=== PATIENT | female | born 1960 | race Caucasian/White ===

== ENCOUNTER 2022-11-28 09:43 | Outpatient (REF) | payer OTHER, SELFPAY ==
[2022-12-01 19:11] LABS: Age Gdln ACOG Testing Note (.); HPV Aptima Negative (Negative); IGP, Aptima HPV, rfx 16/18,45 Note (.)
== END 2022-11-28 09:44 | disposition home or self-care (01) ==
LOC: LAB 09:43
PROVIDERS: PCP Internal Medicine; Visit Provider Obstetrics & Gynecology
DX: Z01.419 Encounter for gynecological examination (general) (routine) without abnormal findings (principal)
CPT/HCPCS: 87624; G0145

== ENCOUNTER 2023-01-25 07:35 | Outpatient (OUT) | payer OTHER, SELFPAY ==
--- NOTE | 2023-01-25 07:39 | CT_ITS ---
[address] [address] Patient Name: CRISTOFER HEATH MRN: [id number] date: 1960 Sex: F Assigned Patient Location: CT Current Patient Location: [facility] Accession/Order Number: [id number] Exam Date: 01/25/2023 07:55 Report Date: 01/25/2023 08:59 At the request of: SHAIKH STORMY Procedure: CT lung screening low-dose EXAMINATION: CT lung screening low-dose HISTORY: Screening For Lung Cancer Z12.2 COMPARISON: No relevant comparison available. TECHNIQUE: Axial, Coronal, and Sagittal images were created without the administration of IV contrast material. Dose reduction techniques were achieved by using automated exposure control and/or adjustment of mA and/or kV according to patient size and/or use of iterative reconstruction technique. FINDINGS: LUNGS: Mild emphysematous changes. No acute infiltrates or suspicious nodules. PLEURA: No mass, effusion, or pneumothorax. VASCULATURE: No abnormality. MEGGAN: No mass or pathologic adenopathy. MEDIASTINUM: No mass or pathologic adenopathy. CARDIAC: No enlargement, pericardial thickening, or significant calcification. AORTA: No aneurysm or dissection. CHEST WALL: No mass or axillary adenopathy BONES: No bone lesion or fracture. LIMITED ABDOMEN: No suspicious findings. Limited images of the upper abdomen. OTHER: Negative. CT/CT lung screening low-dose IMPRESSION: 1. Lung-RADS Category 1 Negative. No nodules and definitely benign nodules. Continue annual screening with LDCT in 12 months. Electronically authenticated by: CHETNA VIRK Date: 01/25/2023 08:59
== END 2023-01-25 07:36 | disposition home or self-care (01) ==
LOC: CT 07:35
PROVIDERS: PCP Internal Medicine; Visit Provider Internal Medicine
DX: Z12.2 Encounter for screening for malignant neoplasm of respiratory organs (principal); Z12.31 Encounter for screening mammogram for malignant neoplasm of breast; Z13.820 Encounter for screening for osteoporosis; M81.0 Age-related osteoporosis without current pathological fracture; Z80.8 Family history of malignant neoplasm of other organs or systems; Z80.52 Family history of malignant neoplasm of bladder; R92.0 Mammographic microcalcification found on diagnostic imaging of breast; R92.1 Mammographic calcification found on diagnostic imaging of breast
CPT/HCPCS: 71271; 77063; 77067; 77080

== ENCOUNTER 2023-01-25 07:36 | Outpatient (OUT) | payer OTHER, SELFPAY ==
--- NOTE | 2023-01-25 07:42 | MM_ITS ---
Patient: CRISTOFER HEATH Exam Date: 01/25/2023 : 1960 Gender:F Ordering : DR LUIS MUNSON . Admission #: [id number] Family : Shaikh Glen Hahn . Order #: [id number] CLICK HERE TO VIEW EXAM RADIOLOGY REPORT PROCEDURE: MM TOMOSYNTHESIS SCREENING BI COMPARISON: MG MAMM SCREEN PURVI W CAD, 08/07/2018. MG MAMM SCREEN PURVI W CAD, 08/12/2019. INDICATIONS: Screening Calculator Name NCI Breast Cancer Risk Assessment Tool 5 Year Breast Cancer Risk 1.50% Lifetime Breast Cancer Risk 7.20% Personal Breast Cancer No Personal Ovarian Cancer No Treatments None Family Cancers Mother with bladder cancer at age 72. LOCATION: [facility] BREAST COMPOSITION: Scattered areas fibroglandular density. FINDINGS: DIAGNOSTIC CATEGORY 0--INCOMPLETE: NEED ADDITIONAL IMAGING EVALUATION. Scattered benign-appearing calcifications are present. Scattered benign-appearing lymph nodes are present. Microcalcifications identified in both axillary tails, I favor artifact from deodorant. Spot magnification views without deodorant is recommended for further evaluation RECOMMENDATIONS: ADDITIONAL MAMMOGRAPHIC VIEWS REQUIRED: BILATERAL BREASTS - spot magnification PLEASE NOTE: A NORMAL MAMMOGRAM DOES NOT EXCLUDE THE POSSIBILITY OF BREAST CANCER. A CLINICALLY SUSPICIOUS PALPABLE LUMP SHOULD BE BIOPSIED. Dictated by: Mohsen Stevens MD on 01/25/2023 at 12:08 Approved by: Mohsen Stevens MD on 01/25/2023 at 12:13
--- NOTE | 2023-01-25 07:42 | XR_ITS ---
[address] [address] Patient Name: CRISTOFER HEATH MRN: [id number]:[id number] date: 1960 Sex: F Assigned Patient Location: [facility] Current Patient Location: [facility] Accession/Order Number: [id number] Exam Date: 01/25/2023 08:00 Report Date: 01/25/2023 08:51 At the request of: LUIS MUNSON Procedure: XR DEXA axial skeleton EXAMINATION: XR DEXA axial skeleton HISTORY: Screening For Osteoporosis Z13.820 COMPARISON: DEXA bone densitometry 08/12/2019 TECHNIQUE: Dual-energy X-ray absorptiometry (DXA) was performed. FINDINGS: SPINE ANALYSIS: Average bone mineral density is 1.340 g/cm2. T-score (standard deviation relative to young adult mean): 1.3 . +7.3% change since prior study. HIP ANALYSIS: Lowest bone mineral density is within the right femoral trochanter, 0.595 g/cm2. T-score (standard deviation relative to young adult mean): -2.2 . -10.0% change since prior study. XR/XR DEXA axial skeleton IMPRESSION: World [employer] Classification: Osteopenia - Moderate Fracture Risk Electronically authenticated by: CHETNA VIRK Date: 01/25/2023 08:51
== END 2023-01-25 07:37 | disposition home or self-care (01) ==
LOC: MAMMO 07:36
PROVIDERS: PCP Internal Medicine; Visit Provider Obstetrics & Gynecology
DX: Z12.31 Encounter for screening mammogram for malignant neoplasm of breast (principal); Z13.820 Encounter for screening for osteoporosis; M81.0 Age-related osteoporosis without current pathological fracture; Z80.8 Family history of malignant neoplasm of other organs or systems; Z80.52 Family history of malignant neoplasm of bladder; R92.0 Mammographic microcalcification found on diagnostic imaging of breast; R92.1 Mammographic calcification found on diagnostic imaging of breast
CPT/HCPCS: 77063; 77067; 77080

== ENCOUNTER 2023-02-15 09:40 | Outpatient (OUT) | payer OTHER, SELFPAY ==
--- NOTE | 2023-02-15 09:44 | MM_ITS ---
Patient: CRISTOFER HEATH Exam Date: 02/15/2023 : 1960 Gender:F Ordering : Shaikh Glen Hahn . Admission #: [id number] Family : Order #: [id number] CLICK HERE TO VIEW EXAM RADIOLOGY REPORT PROCEDURE: MM DIAGNOSTIC MAMMO BI COMPARISON: MM TOMOSYNTHESIS SCREENING BI, 01/25/2023. INDICATIONS: Abnormal mammogram with microcalcification R92.0 Calculator Name NCI Breast Cancer Risk Assessment Tool 5 Year Breast Cancer Risk 1.50% Lifetime Breast Cancer Risk 7.20% Personal Breast Cancer No Personal Ovarian Cancer No Treatments None Family Cancers Mother with bladder cancer at age 72. LOCATION: [facility] BREAST COMPOSITION: Scattered areas fibroglandular density. FINDINGS: DIAGNOSTIC CATEGORY 2--BENIGN FINDING: Bilateral spot magnification views of axilla demonstrate the previously noted calcifications to no longer be present consistent with artifact from deodorant. No further evaluation is required RECOMMENDATIONS: ROUTINE MAMMOGRAM AND CLINICAL EVALUATION IN 12 MONTHS. PLEASE NOTE: A NORMAL MAMMOGRAM DOES NOT EXCLUDE THE POSSIBILITY OF BREAST CANCER. A CLINICALLY SUSPICIOUS PALPABLE LUMP SHOULD BE BIOPSIED. Dictated by: Mohsen Stevens MD on 02/15/2023 at 09:57 Approved by: Mohsen Stevens MD on 02/15/2023 at 09:58
== END 2023-02-15 09:41 | disposition home or self-care (01) ==
LOC: MAMMO 09:40
PROVIDERS: PCP Internal Medicine; Visit Provider Internal Medicine
DX: R92.0 Mammographic microcalcification found on diagnostic imaging of breast (principal)
CPT/HCPCS: 77066

== ENCOUNTER 2023-11-30 19:34 | Outpatient (REF) | payer OTHER, SELFPAY ==
[2023-12-05 08:12] LABS: Age Gdln ACOG Testing Note (.); HPV Aptima Negative (Negative); IGP, Aptima HPV, rfx 16/18,45 Note (.)
== END 2023-11-30 19:35 | disposition home or self-care (01) ==
LOC: LAB 19:34
PROVIDERS: PCP Internal Medicine; Visit Provider Obstetrics & Gynecology
DX: Z01.419 Encounter for gynecological examination (general) (routine) without abnormal findings (principal)
CPT/HCPCS: 87624; 88175

== ENCOUNTER 2024-01-29 09:30 | Outpatient (OUT) | payer OTHER, SELFPAY ==
--- NOTE | 2024-01-29 09:32 | MM_ITS ---
Patient Name: CRISTOFER HEATH MR#: [id number] : 1960 Exam Date: 01/29/2024 Ordering Doctor: DR LUIS MUNSON . RADIOLOGY REPORT PROCEDURE: MM TOMOSYNTHESIS SCREENING BI COMPARISON: MM TOMOSYNTHESIS SCREENING BI, 01/25/2023. MM DIAGNOSTIC MAMMO BI, 02/15/2023. INDICATIONS: Screening Calculator Name NCI Breast Cancer Risk Assessment Tool 5 Year Breast Cancer Risk 1.50% Lifetime Breast Cancer Risk 7.00% Personal Breast Cancer No Personal Ovarian Cancer No Treatments None Family Cancers Mother with bladder cancer at age 72. LOCATION: [facility] BREAST COMPOSITION: There are scattered areas of fibroglandular density. FINDINGS: DIAGNOSTIC CATEGORY 2--BENIGN FINDING. NO CHANGE FROM COMPARISON. Scattered benign-appearing calcifications are present. Scattered benign-appearing lymph nodes are present. RIGHT BREAST: No significant suspicious finding. LEFT BREAST: No significant suspicious finding. RECOMMENDATIONS: ROUTINE MAMMOGRAM AND CLINICAL EVALUATION IN 12 MONTHS. Active recommendations from prior exams: ROUTINE MAMMOGRAM AND CLINICAL EVALUATION IN [#MONTHS] MONTHS. Due on 02/16/2024. PLEASE NOTE: A NORMAL MAMMOGRAM DOES NOT EXCLUDE THE POSSIBILITY OF BREAST CANCER. A CLINICALLY SUSPICIOUS PALPABLE LUMP SHOULD BE BIOPSIED. Dictated by: Mohsen Stevens MD on 01/29/2024 at 11:10 Approved by: Mohsen Stevens MD on 01/29/2024 at 11:13
--- OUTSIDE RECORDS SUMMARY | 2024-01-29 09:52 | XMS_ITS | CCD ---
Author Organization [facility] Care Team Providers Care Senior Health Educator Name Role Phone FATIFFANY, JAMESON H Primary Care Unavailable DR Rene Byers Consulting Unavailable FAWWAD, JAMESON H Admitting Unavailable FAWWAD, JAMESON H Attending Unavailable FAWWAD, JAMESON H Consulting Unavailable FAWWAD, JAMESON H Primary Care Unavailable FAWWAD, JAMESON H Admitting Unavailable FAWWAD, JAMESON H Attending Unavailable FAWWAD, JAMESON H Consulting Unavailable JohnwShaikh franco MD Primary Care Provider Shaikh Hahn MD Primary Care Provider [phone] YADIEL SCOTT Attending Unavailable FAWWAD, JAMESON Referring Unavailable FAWWAD, JAMESON Primary Care Unavailable JOSHUA DICKENS Admitting Unavailable JOSHUA DICKENS Attending Unavailable JOHNWWAD, JAMESON Referring Unavailable FAWWAD, JAMESON Primary Care Unavailable JOSHUA DICKENS Attending Unavailable JOSHUA DICKENS Referring Unavailable FAWWAD, JAMESON Primary Care Unavailable MELLY RADER Attending Unavailable FAWWAD, JAMESON Primary Care Unavailable YADIEL SCOTT Attending Unavailable FAWWAD, JAMESON Referring Unavailable FAWWAD, JAMESON Primary Care Unavailable YADIEL SCOTT Attending Unavailable FAWWAD, JAMESON Referring Unavailable FAWWAD, JAMESON Primary Care Unavailable JOSHUA DICKENS Admitting Unavailable JOSHUA DICKENS Attending Unavailable FAWWAD, JAMESON Referring Unavailable FAWWAD, JAMESON Primary Care Unavailable FAWWAD, JAMESON Attending Unavailable FAWWAD, JAMESON Attending Unavailable ARPIT, LUIS Attending Unavailable SINDHU OLIVARES Attending Unavailabl e Allergies Allergy Classification Reported Allergen(s) Allergy Type Date of Onset Reaction(s) Facility (1 source) bee venom Drug allergy (disorder) [facility] (1 source) Cephalexin Drug Allergy [facility] (2 sources) Codeine; Translations: [CODEINE] Drug Allergy 05-18-20 16 [facility] (1 source) moxifloxacin Drug Allergy [facility] (1 source) Sulfamethoxazole / Trimethoprim Drug Allergy [facility] (1 source) traMADol Drug Allergy [facility] (2 sources) Cephalexin Drug Allergy 11-26-19 23 Hives [facility] (3 sources) Codeine Drug Allergy 05-18-20 16 GI intolerance, Nausea, Vomiting [facility] (2 sources) Mixed vespid venom Propensity to adverse reactions 11-26-19 23 GI intolerance [facility] (4 sources) moxifloxacin; Translations: [MOXIFLOXACIN] Drug Allergy 05-18-20 16 Hives, Nausea, Vomiting [facility] Work Phone: (2 sources) Nitrofurantoin Drug Allergy 11-26-19 23 Hives [facility] (4 sources) Sulfamethoxazole / Trimethoprim; Translations: [SULFAMETHOXAZOLE-T RIMETHOPRIM] Drug Allergy 05-18-20 16 Hives, Rash [facility] (4 sources) traMADol; Translations: [TRAMADOL] Drug Allergy 05-18-20 16 Hives, Nausea, Vomiting [facility] (2 sources) Cephalosporins (Antibiotic); Translations: [CEPHALOSPORINS] Drug Intolerance 04-19-20 12 Rash [facility] (1 source) Honey bee venom Allergy to substance 07-17-19 24 Anaphylaxis [facility] (1 source) Sulfamethoxazole Allergy to substance 02-11-20 Hives [facility] (1 source) Trimethoprim Drug Allergy 02-11-20 20 Hives [facility] (1 source) Moxifloxacin Hcl In Nacl Drug Intolerance 04-22-20 11 [facility] (1 source) Cephalosporins (Antibiotic) Propensity to adverse reactions to drug 05-18-20 16 Rash [facility] (2 sources) Bee Venom Protein (Honey Bee); Translations: [BEE VENOM PROTEIN (HONEY BEE)] Propensity to adverse reactions to drug 10-13-19 12 Anaphylaxis [facility] Medications Current Medications Medication Drug Class(es) Dates Sig (Normalized) Sig (Original) acetaminophen 500 mg oral tablet (1 source) take 2 tablets by mouth every six hours as needed for pain acetaminophen (TYLENOL) 500 mg tablet Take 2 tablets (1,000 mg total) by mouth every 6 (six) hours as needed for pain. 0 Active [id number] 200 actuat albuterol 0.09 mg/actuat metered dose inhaler (2 sources) beta2-Adrenergic Agonist Start: 04-13-2022 take 1 puff(s) by inhalation every four hours albuterol HFA 90 mcg/act inhaler Inhale 1 puff every 4 (four) hours if needed. 0 04/13/2022 Active alendronic acid 35 mg oral tablet (3 sources) Bisphosphonate Start: 06-13-2023 take 1 tablet by mouth every week alendronate (Fosamax) 35 MG tablet Indications: Osteopenia, unspecified location Take 1 tablet by mouth once a week 12 tablet 0 06/13/2023 Active Start: 03-26-2016 take 1 tablet by brian once daily alendronate (FOSAMAX) 10 mg tablet Take 1 tablet (10 mg total) by mouth nightly. 0 03/26/2016 Active aspirin 81 mg delayed release oral tablet (1 source) Platelet Aggregation Inhibitor, Nonsteroidal Anti-inflammatory Drug Start: 08-06-2021 aspirin 81 mg Indications: Primary osteoarthritis of right knee Take 1 tablet (81 mg total) by mouth 2 (two) times a day. To begin taking day one following your joint replacement 60 tablet 0 08/06/2021 Active atorvastatin 20 mg oral tablet (3 sources) HMG-CoA Reductase Inhibitor Start: 2016 take 1 tablet by mouth once daily atorvastatin (LIPITOR) 20 mg tablet Take 1 tablet (20 mg total) by mouth nightly. 0 2016 Active azithromycin 250 mg oral tablet (1 source) Macrolide Antimicrobial Start: 07-17-2023 End: 07-22-2023 azithromycin (Zithromax) 250 MG tablet Indications: URTI (acute upper respiratory infection) Take 1 tablet (250 mg) by mouth in the morning for 5 days. Take 2 pills on day 1, take 1 pill from day 2-5. 6 tablet 0 07/17/2023 07/22/2023 Active 24 hr buPROPion hydrochloride 150 mg extended release oral tablet (2 sources) Aminoketone Start: 07-17-2023 End: 07-16-2024 take 1 tablet by mouth every twenty-four hours in the morning buPROPion XL (WELLBUTRIN XL) 150 mg 24 hr tablet Take 1 tablet (150 mg total) by mouth in the morning. 0 07/17/2023 07/16/2024 Active calcium carbonate 1250 mg oral tablet (3 sources) take 2.5 tablets by mouth in the morning calcium carbonate (OS-JULIO CÉSAR) 500 mg elemental (1,250 mg) tablet Take 2.5 tablets (1,250 mg total) by mouth in the morning. 0 Active take 1 tablet by mouth in the mo rning calcium carbonate (Os-Julio César) 1250 (500 Ca) MG tablet Take 1,250 mg by mouth in the morning. 0 Active Cholecalciferol (5 sources) Vitamin D Start: 02-14-2023 End: 07-17-2023 take 1 tablet by mouth in the morning cholecalciferol (Vitamin D-3) 20 MCG (800 UNIT) tablet Indications: Osteopenia, unspecified location Take 1 tablet (20 mcg) by mouth in the morning. 30 tablet 02/14/2023 07/17/2023 Discontinued (Therapy completed) Start: 02-14-2023 End: 02-14-2024 take 1 tablet by mouth in the morning cholecalciferol (Vitamin D-3) 20 MCG (800 UNIT) tablet Indications: Osteopenia, unspecified location Take 1 tablet (20 mcg) by mouth in the morning. 30 tablet 11 02/14/2023 02/14/2024 Active Start: 01-28-2022 take 1 tablet by brian th twice daily at mealtime cholecalciferol (VITAMIN D3) 1,000 units tablet Indications: Vitamin D deficiency TAKE 1 TABLET BY MOUTH TWICE DAILY (MORNING AND EVENING) WITH MEALS 60 tablet 0 01/28/2022 Active Start: 01-28-2022 End: 07-17-2023 take 1 tablet by mouth in the morning cholecalciferol (Vitamin D-3) 25 MCG (1000 UT) tablet Take 25 mcg by mouth in the morning. 0 01/28/2022 07/17/2023 Discontinued (Therapy completed) [id number] 0.3 ml EPINEPHrine 1 mg/ml auto-injector (3 sources) alpha-Adrenergic Agonist, beta-Adrenergic Agonist, Catecholamine Start: 02-19-2016 EPIPEN 2-ELLIOT 0.3 mg/0.3 mL auto-injector EPINEPHrine (Epi Pen 2-Elliot) 0.3 MG/0.3ML injection syringe Inject as directed 1 (one) time. 0 Active ergocalciferol 1.25 mg oral capsule (1 source) Provitamin D2 Compound Start: 08-23-2021 take 1 capsule by mouth every week ergocalciferol (DRISDOL) 1,250 mcg (50,000 unit) capsule Indications: Vitamin D deficiency Take 1 capsule (50,000 Units total) by mouth once a week. For 6 weeks 6 capsule 0 08/23/2021 Active fexofenadine hydrochloride 180 mg oral tablet (3 sources) Histamine-1 Receptor Antagonist Start: 08-24-2022 End: 07-17-2023 take 1 tablet by mouth in the morning fexofenadine (BERNIE) 180 mg tablet Take 1 tablet (180 mg total) by mouth in the morning. 0 08/24/2022 Active FLUoxetine 20 mg oral capsule (4 sources) Serotonin Reuptake Inhibitor Start: 07-12-2021 End: 07-17-2023 take 1 capsule by mouth in the morning FLUoxetine (PROzac) 20 MG capsule Take 20 mg by mouth in the morning. 0 11/23/2022 07/17/2023 Discontinued (Dose adjustment) take 1 capsule by mouth in the m orning FLUoxetine (PROzac) 10 MG capsule Take 10 mg by mouth in the morning. 0 Active fluticasone propionate 0.05 mg/actuat metered dose nasal spray (2 sources) Corticosteroid Start: 02-22-2022 take 1 spray(s) nasal route in the morning fluticasone (Flonase) 50 MCG/ACT nasal spray Administer 1 spray into each nostril in the morning. 0 02/22/2022 Active melatonin 5 mg oral tablet (3 sources) take 2 tablets by mouth once daily melatonin (CIRCADIN) 5 mg tablet Take 2 tablets (10 mg total) by mouth nightly. 0 Active meloxicam 15 mg oral tablet (3 sources) Nonsteroidal Anti-inflammatory Drug Start: 08-25-2022 take 1 tablet by mouth in the morning meloxicam (MOBIC) 15 mg tablet Take 1 tablet (15 mg total) by mouth in the morning. 0 08/25/2022 Active 24 hr nicotine 0.875 mg/hr transdermal system (1 source) Cholinergic Nicotinic Agonist Start: 03-15-2023 apply 1 dose transdermal route every twenty-four hours nicotine (NICODERM CQ) 21 mg/24 hr APPLY 1 PATCH TOPICALLY EVERY 24 HOURS 0 03/15/2023 Active traZODone hydrochloride 50 mg oral tablet (4 sources) Serotonin Reuptake Inhibitor End: 07-17-2023 take 1 tablet by mouth once daily traZODone (DESYREL) 50 mg tablet Take 1 tablet (50 mg total) by mouth nightly. 0 Active Problems Active Problems Problem Classification Problem Date Documented Date Episodic/Chronic Disorders of lipid metabolism (7 sources) Hyperlipidemia, unspecified; Translations: [Hyperlipidemia] Onset: 03-19-2018 Chronic Essential hypertension (2 sources) Essential hypertension; Translations: [Essential (primary) hypertension] Onset: 07-17-2023 07-17-2023 Chronic Mood disorders (2 sources) Single episode of major depression in full remission; Translations: [Major depressive disorder, single episode, in full remission] Onset: 07-17-2023 07-17-2023 Chronic Osteoarthritis (3 sources) Osteoarthritis of left hip joint; Translations: [Unilateral primary osteoarthritis, left hip] Onset: 07-19-2021 07-17-2023 Chronic Osteoporosis (2 sources) Osteoporosis; Translations: [Age-related osteoporosis without current pathological fracture] Onset: 03-19-2018 07-17-2023 Chronic Other connective tissue disease (2 sources) History of total knee arthroplasty; Translations: [Presence of right artificial knee joint] Onset: 10-27-2021 07-17-2023 Chronic Other upper respiratory infections (2 sources) Acute upper respiratory infection; Translations: [Acute upper respiratory infection, unspecified] Onset: 07-17-2023 07-17-2023 Episodic Residual codes; unclassified (1 source) Obstructive sleep apnea syndrome; Translations: [Obstructive sleep apnea (adult) (pediatric)] 07-17-2023 Chronic Residual codes; unclassified (1 source) Hypersomnia with sleep apnea; Translations: [Hypersomnia, unspecified] Onset: 07-17-2023 07-17-2023 Chronic Residual codes; unclassified (2 sources) Sleep apnea; Translations: [Sleep apnea, unspecified] Onset: 03-19-2018 07-17-2023 Chronic Residual codes; unclassified (2 sources) Tobacco user; Translations: [Tobacco use] Onset: 07-17-2023 07-17-2023 Episodic Spondylosis; intervertebral disc disorders; other back problems (2 sources) Other intervertebral disc degeneration, lumbar region; Translations: [Spondylosis without myelopathy or radiculopathy, lumbosacral region] Onset: 05-29-2022 Chronic Spondylosis; intervertebral disc disorders; other back problems (7 sources) Spinal stenosis of lumbar region; Translations: [Spinal stenosis, lumbar region with neurogenic claudication] Onset: 09-08-2022 07-17-2023 Episodic Thyroid disorders (1 source) Congenital hypothyroidism with diffuse goiter; Translations: [CONGEN HYPOTHYROIDISM W/DIF GOITER] Onset: 11-18-2021 Chronic Unclassified (3 sources) LOW BACK PAIN, UNSPECIFIED; Translations: [LOW BACK PAIN, UNSPECIFIED] Onset: 05-29-2022 Past or Other Problems Problem Classification Problem Date Documented Da te Episodic/Chronic Abdominal pain (1 source) Right flank pain; Translations: [Unspecified abdominal pain] Onset: 03-19-2018 03-19-2018 Episodic Diabetes mellitus without complication (1 source) Other abnormal glucose; Translations: [OTHER ABNORMAL GLUCOSE] Onset: 11-18-2021 Episodic Genitourinary symptoms and ill-defined conditions (1 source) Blood in urine; Translations: [Hematuria, unspecified] Onset: 03-19-2018 03-19-2018 Episodic Unclassified (1 source) LOW BACK PAIN, UNSPECIFIED; Translations: [LOW BACK PAIN, UNSPECIFIED] Onset: 05-25-2022 Results Test Name Value Interpretation Reference Range Facility XR LSPINE MIN 4 VIEWSon 05-12 XR LSPINE MIN 4 VIEWS EXAMINATION: XR LSPINE MIN 4 VIEWS HISTORY: Low back pain for one month COMPARISON: No relevant comparison available. FINDINGS: BONES: Moderate right convex curvature lumbar spine. Mild grade 1 retrolisthesis of L2 on 3 and L4 on 5. Moderate degenerative facet arthropathy L3 through S1. No fracture. DISC SPACES: Marked narrowing L4-L5, L5-S1. Multilevel moderate narrowing. PARASPINOUS: Atherosclerotic disease of aorta without visible aneurysm. OTHER: Negative. IMPRESSION: 1. No appreciable acute abnormality. 2. Multilevel marked degenerative disc disease and facet arthropathy; not visibly changed. Electronically authenticated by: RENE BYERS Date: 2022-05-25 23:28 Normal [facility] CBC AUTO DIFFon 11-12-2021 BASO # 0.0 103/ul Normal 0.0-0.1 [facility] Comment on above: Performed By: #### C BC #### [facility] [address] [address] [address] Mary Solano Basophils/100 WBC (Bld) 0.6 % Normal 0.2-2.0 [facility] Comment on above: Performed By: #### C BC #### [facility] [address] [address] [address] Mary Solano EO # 0.1 103/ul Normal 0.0-0.7 [facility] Comment on above: Performed By: #### C BC #### [facility] [address] [address] [address] Mary Solano Eosinophils/100 WBC (Bld) 1.9 % Normal 0.9-7.0 [facility] Comment on above: Performed By: #### C BC #### [facility] [address] [address] [address] Mary Solano Erythrocyte distribution width (RBC) [Ratio] 14.0 % Normal 11.0-15.0 [facility] Comment on above: Performed By: #### C BC #### [facility] [address] [address] [address] Mary Solano Hematocrit (Bld) [Volume fraction] 44.4 % Normal 36.0-48.0 [facility] Comment on above: Performed By: #### C BC #### [facility] [address] [place] [address] Dr. Mary Solano Hemoglobin (Bld) [Mass/Vol] 14.3 g/dL Normal 12.0-16.0 [facility] Comment on above: Performed By: #### C BC #### [facility] [address] [place] [address] Dr. Mary Solano IG # 0.02 10e3/ul Normal 0.00-0.03 [facility] Comment on above: Performed By: #### C BC #### [facility] [address] [place] [address] Dr. Mary Solano IG % 0.3 % Normal 0.0-0.5 [facility] Comment on above: Performed By: #### C BC #### [facility] [address] [place] [address] Dr. Mary Solano LYMPH # 2.1 103/ul Normal 1.2-3.8 [facility] Comment on above: Performed By: #### C BC #### [facility] [address] [place] [address] Dr. Mary Solano Lymphocytes/100 WBC (Bld) 30.1 % Normal 20.5-60.0 [facility] Comment on above: Performed By: #### C BC #### [facility] [address] [place] [address] Dr. Mary Solano MANUAL DIFF REQ NO Normal [facility] Comment on above: Performed By: #### C BC #### [facility] [address] [place] [address] Dr. Mary Solano MCH (RBC) [Entitic mass] 29.3 pg Normal 26.7-34.0 [facility] Comment on above: Performed By: #### C BC #### [facility] [address] [place] [address] Dr. Mary Solano MCHC (RBC) [Mass/Vol] 32.2 g/dL Normal 29.9-35.2 [facility] Comment on above: Performed By: #### C BC #### [facility] [address] [place] [address] Dr. Mary Solano MCV (RBC) [Entitic vol] 91.0 fL Normal 81.0-99.0 [facility] Comment on above: Performed By: #### C BC #### [facility] [address] [place] [address] Dr. Mary Solano MONO # 0.6 103/ul Normal 0.3-0.8 [facility] Comment on above: Performed By: #### C BC #### [facility] [address] [address] [address] Mary Solano Monocytes/100 WBC (Bld) 8.9 % Normal 1.7-12.0 [facility] Comment on above: Performed By: #### C BC #### [facility] [address] [address] [address] Mary Solano NEUT # 4.0 103/ul Normal 1.4-6.5 [facility] Comment on above: Performed By: #### C BC #### [facility] [address] [place] [address] Dr. Mary Solano Neutrophils/100 WBC (Bld) 58.2 % Normal 43.0-75.0 [facility] Comment on above: Performed By: #### C BC #### [facility] [address] [place] [address] Dr. Mary Solano Platelet mean volume (Bld) [Entitic vol] 8.8 fL Critically low 9.5-13.5 [facility] Comment on above: Performed By: #### C BC #### [facility] [address] [place] [address] Dr. Mary Solano PLT 372 103/ul Normal 150-450 [facility] Comment on above: Performed By: #### C BC #### [facility] [address] [place] [address] Dr. Mary Solano RBC 4.88 106/ul Normal 4.20-5.40 [facility] Comment on above: Performed By: #### C BC #### [facility] [address] [place] [address] Dr. Mary Solano WBC 6.8 103/ul Normal 4.0-11.0 [facility] Comment on above: Performed By: #### C BC #### [facility] [address] [place] [address] Dr. Mary Solano GLYCOHEMOGLOBIN A1Con 2021 ADA RECOMMENDATION SEE BELOW Normal [facility] Comment on above: Result Comment: ADA RECOMMENDED LIMIT 4.0 - 6.0 ADA THERAPEUTIC TARGET < 7.0 ACTION SUGGESTED > 7.0 Performed By: #### A 1C #### [facility] [address] [place] [address] Dr. Mary Solano Glucose [Mass/Vol] 117 mg/dL Normal [facility] Comment on above: Performed By: #### A 1C #### [facility] [address] [address] [address] Mary Solano HbA1c (Bld) [Mass fraction] 5.7 % Normal 4.5-6.2 [facility] Comment on above: Performed By: #### A 1C #### [facility] [address] [place] [address] Dr. Mary Solano LIPID PROFILEon 11-12-2021 CHOL-HDL RATIO NORM SEE BELOW Normal [facility] Comment on above: Result Comment: 3.3 - 4.4 LOW RISK 4.4 - 7.1 AVERAGE RISK 7.1 - 11.0 MODERATE RISK >11.0 HIGH RISK Performed By: #### C MP, LIPID #### [facility] [address] [place] [address] Dr. Mary Solano Cholesterol [Mass/Vol] 197 mg/dL Normal <=200 [facility] Comment on above: Performed By: #### C MP, LIPID #### [facility] [address] [place] [address] Dr. Mary Solano Cholesterol in HDL [Mass/Vol] 49 mg/dL Normal 40-60 [facility] Comment on above: Performed By: #### C MP, LIPID #### [facility] [address] [address] [address] Mary Solano Cholesterol in LDL [Mass/Vol] 124.4 mg/dL Normal [facility] Comment on above: Performed By: #### C MP, LIPID #### [facility] [address] [place] [address] Dr. Mary Solano Cholesterol.total/Cho lesterol in HDL [Mass ratio] 4.0 {ratio} Normal [facility] Comment on above: Performed By: #### C MP, LIPID #### [facility] [address] [address] [address] Mary Solano HDL NORMAL > or = 60 mg/dl - LO W CARDIOVASCULAR RISK <40 mg/dl - HIGH CARDIOVASCULAR RISK Normal [facility] Comment on above: Performed By: #### C MP, LIPID #### [facility] [address] [address] [address] Mary Solano LDL CALC NORMAL SEE BELOW Normal [facility] Comment on above: Result Comment: <100 mg/dl OPTIMAL 100 - 129 mg/dl NEAR OR ABOVE OPTIMAL 130 - 159 mg/dl BORDERLINE HIGH 160 - 189 mg/dl HIGH >190 mg/dl VERY HIGH Performed By: #### C MP, LIPID #### [facility] [address] [place] [address] Dr. Mary Solano Triglyceride [Mass/Vol] 118 mg/dL Normal <=150 [facility] Comment on above: Performed By: #### C MP, LIPID #### [facility] [address] [place] [address] Dr. Mary Solano VLDL CALC 23.6 mg/dL Normal [facility] Comment on above: Performed By: #### C MP, LIPID #### [facility] [address] [place] [address] Dr. Mary Solano PROF 14(COMP METB)on 022 Albumin [Mass/Vol] 3.8 g/dL Normal 3.4-5.0 [facility] Comment on above: Performed By: #### C MP, LIPID #### [facility] [address] [place] [address] Dr. Mary Solano Albumin/Globulin [Mass ratio] 1.1 {ratio} Normal [facility] Comment on above: Performed By: #### C MP, LIPID #### [facility] [address] [place] [address] Dr. Mary Solano ALP [Catalytic activity/Vol] 136 U/L Critically high 46-116 [facility] Comment on above: Performed By: #### C MP, LIPID #### [facility] [address] [address] [address] Mary Solano ALT [Catalytic activity/Vol] 20 U/L Normal 14-59 [facility] Comment on above: Performed By: #### C MP, LIPID #### [facility] [address] [address] [address] Mary Solano Anion gap [Moles/Vol] 12.1 mmol/L Normal [facility] Comment on above: Performed By: #### C MP, LIPID #### [facility] [address] [address] [address] Mary Solano AST [Catalytic activity/Vol] 14 U/L Critically low 15-37 [facility] Comment on above: Performed By: #### C MP, LIPID #### [facility] [address] [place] [address] Dr. Mary Solano Bilirubin [Mass/Vol] 0.3 mg/dL Normal 0.2-1.0 [facility] Comment on above: Performed By: #### C MP, LIPID #### [facility] [address] [place] [address] Dr. Mary Solano Calcium [Mass/Vol] 9.3 mg/dL Normal 8.5-10.1 [facility] Comment on above: Performed By: #### C MP, LIPID #### [facility] [address] [place] [address] Dr. Mary Solano Chloride [Moles/Vol] 102 mmol/L Normal 98-107 [facility] Comment on above: Performed By: #### C MP, LIPID #### [facility] [address] [place] [address] Dr. Mary Solano CO2 [Moles/Vol] 29.0 mmol/L Normal 21.0-32.0 [facility] Comment on above: Performed By: #### C MP, LIPID #### [facility] [address] [place] [address] Dr. Mary Solano Creatinine [Mass/Vol] 0.64 mg/dL Normal 0.55-1.02 [facility] Comment on above: Performed By: #### C MP, LIPID #### [facility] [address] [place] [address] Dr. Mary Solano EGFR-AF MAURITIAN >60 Normal >=60 [facility] Comment on above: Performed By: #### C MP, LIPID #### [facility] [address] [place] [address] Dr. Mary Solano EGFR-NON AF MAURITIAN >60 Normal >=60 [facility] Comment on above: Performed By: #### C MP, LIPID #### [facility] [address] [address] [address] Mary Solano Globulin (S) [Mass/Vol] 3.4 g/dL Normal [facility] Comment on above: Performed By: #### C MP, LIPID #### [facility] [address] [place] [address] Dr. Mary Solano Glucose [Mass/Vol] 94 mg/dL Normal 74-106 [facility] Comment on above: Performed By: #### C MP, LIPID #### [facility] [address] [place] [address] Dr. Mary Solano Potassium [Moles/Vol] 4.1 mmol/L Normal 3.5-5.1 [facility] Comment on above: Performed By: #### C MP, LIPID #### [facility] [address] [place] [address] Dr. Mary Solano Protein [Mass/Vol] 7.2 g/dL Normal 6.4-8.2 [facility] Comment on above: Performed By: #### C MP, LIPID #### [facility] [address] [place] [address] Dr. Mary Solano Sodium [Moles/Vol] 139 mmol/L Normal 136-145 [facility] Comment on above: Performed By: #### C MP, LIPID #### [facility] [address] [place] [address] Dr. Mary Solano Urea nitrogen [Mass/Vol] 14.0 mg/dL Normal 7.0-18.0 [facility] Comment on above: Performed By: #### C MP, LIPID #### [facility] [address] [place] [address] Dr. Mary Solano Urea nitrogen/Creatinine [Mass ratio] 21.9 mg/mg Normal [facility] Comment on above: Performed By: #### C MP, LIPID #### [facility] [address] [address] [address] Mary Solano Reminderson 06-07-2019 Reminders - From: Harry JACKSON, Tati Mooney To: EU - Clinical; Sent: 05/22/2019 09:03:06 EST Show up: 06/03/2019 07:00:00 EST Subject: Ambulatory Reminder Due Date/Time: 06/05/2019 07:00:00 EST Reminder/Recall FISH/Cytology done 05/22/19 due to gross hematuria done, results negative, in patients chart [facility] Vital Signs Date Time Vital Sign Value Performing Clinician Facility 08-24-2023 09:25-0400 Body height 162.6 cm Yadiel MUNGUIA Work Phone: [facility] 08-24-2023 09:25-0400 Body mass index (BMI) [Ratio] 33.13 kg/m2 Yadiel MUNGUIA Work Phone: [facility] 08-24-2023 09:25-0400 Body weight 87.54 kg Yadiel MUNGUIA Work Phone: [facility] 08-24-2023 09:25-0400 Diastolic blood pressure 75 mm[Hg] Yadiel MUNGUIA Work Phone: [facility] 08-24-2023 09:25-0400 Heart rate 58 /min Yadiel [facility]GU[facility] 08-24-2023 09:25-0400 Respiratory rate 14 /min Yadiel MUNGUIA Work Phone: [facility] [employer] [facility] 08-24-2023 09:25-0400 SaO2% (BldA) [Mass fraction] 98 % Yadiel MUNGUIA Work Phone: [facility] 08-24-2023 09:25-0400 Systolic blood pressure 137 mm[Hg] Yadiel MUNGUIA Work Phone: [facility] 07-17-2023 09:00-0500 Body height 162.6 cm Shaikh Jovani ASKEW Work Phone: [facility] 07-17-2023 09:00-0500 Body mass index (BMI) [Ratio] 33.23 kg/m2 Shaikh Jovani ASKEW Work Phone: [facility] 07-17-2023 09:00-0500 Body temperature 98.1 [degF] Shaikh Jovani ASKEW Work Phone: [facility] 07-17-2023 09:00-0500 Body weight 87.82 kg Shaikh Jovani ASKEW Work Phone: [facility] 07-17-2023 09:00-0500 Diastolic blood pressure 78 mm[Hg] Shaikh Jovani ASKEW Work Phone: [facility] 07-17-2023 09:00-0500 Heart rate 66 /min Shaikh Jovani ASKEW Work Phone: [facility] 07-17-2023 09:00-0500 Respiratory rate 17 /min Shaikh Jovani ASKEW Work Phone: [facility] 07-17-2023 09:00-0500 SaO2% (BldA) [Mass fraction] 96 % Shaikh Jovani ASKEW Work Phone: [facility] 07-17-2023 09:00-0500 Systolic blood pressure 130 mm[Hg] Shaikh Jovani ASKEW Work Phone: [facility] Encounters Encounter Date Encounter Type Care Provider Facility Start: 01-24-2024 End: 01-24-2024 ambulatory SINDHU OLIVARES Not Available Start: 01-12-2024 End: 01-12-2024 ambulatory [facility] Start: 12-28-2023 End: 12-28-2023 ambulatory YADIEL SCOTT [facility] Start: 11-30-2023 End: 11-30-2023 ambulatory LUIS ARPIT Not Available Start: 10-04-2023 End: 10-04-2023 ambulatory SHAIKH JOVANI Not Available Start: 10-03-2023 End: 10-03-2023 ambulatory YADIEL S [facility] Start: 09-16-2023 End: 09-16-2023 ambulatory MELLY Gabriel SYDNEEKURT [facility] Start: 09-15-2023 End: 09-15-2023 ambulatory JOSHUA DICKENS [facility] Start: 08-24-2023 End: 08-24-2023 Office outpatient visit 15 minutes Yadiel S Nizak MUNGUIA Work Phone: [facility] Comment on above: Disorder of sacrum ( Primary Dx) Start: 08-24-2023 End: 08-24-2023 [facility] Start: 07-17-2023 Isaiah Hahn MD Work Phone: [facility] Start: 07-17-2023 Isaiah Hahn MD Work Phone: [facility] Start: 07-17-2023 End: 07-17-2023 Office outpatient visit 25 minutes Shaikh Jovani ASKEW Work Phone: [facility] Comment on above: Obstructive sleep ap emily syndrome (Primary Dx); Hyperlipidemia, unspecified hyperlipidemia type (CMS/HCC); Primary hypertension (CMS/HCC); URTI (acute upper respiratory infection); Major depressive disorder with single episode, in full remission (CMS/HCC); Tobacco abuse Start: 07-17-2023 End: 07-17-2023 ambulatory SHAIKH JOVANI Not Available Start: 05-25-2022 End: 05-26-2022 ambulatory SHAIKH Truman HAHN Facility: Start: 11-12-2021 End: 11-13-2021 ambulatory SHAIKH Truman HAHN Facility:H1 Procedures Date Procedure Procedure Detail Performing Clinician Start: 02-12-2023 Mammography Shaikh Jim franco MD Work Phone: Start: 11-18-2021 Mammography Shaikh Jim franco MD Work Phone: Plan of Treatment Date Care Activity Detail Author Start: 12-07-2027 Screening for malign ant neoplasm of cervix [facility] Start: 03-09-2025 Screening for malign ant neoplasm of colon [facility] Start: 08-23-2024 Adult BMI Screening Adult BMI Screen ing [facility] Start: 08-23-2024 Tobacco Screening Tobacco Screening [facility] Start: 02-13-2024 Screening for malign ant neoplasm of breast Mammogram [facility] Start: 01-13-2024 Tobacco Counseling Tobacco Counselin g [facility] Start: 11-30-2023 End: 11-30-2023 Patient encounter procedure 11/30/2023 9:00 AM EDT Office Visit [facility] [address] [place] [address] Luis Rubalcava, [address] [place] [address] [facility] Start: 10-03-2023 End: 10-03-2023 Patient encounter procedure 10/03/2023 9:45 AM EDT Office Visit [facility] [address] [place] [id number] Yadiel Scott PA [address] [place] [address] [facility] Start: 09-15-2023 End: 09-15-2023 Admission to same day surgery center 09/15/2023 7:26 AM EDT - 09/15/2023 7:[address] [facility] [address] [place] [phone] Joshua Dickens MD [address] [place], [place] [id number] INJECTION BLOCK SACROILIAC JOINT [90956 (CPT )] [facility] Comment on above: INJECTION BLOCK SACR OILIAC JOINT [94486 (CPT )] Start: 09-15-2023 End: 09-15-2023 Inject si joint arthrgrphy&/anes/steroi d w/aileen INJECTION BLOCK SACROILIAC JOINT Disorder of sacrum 09/15/2023 7:26 AM EDT [facility] Start: 09-15-2023 Subsequent hospital visit by physician 09/15/2023 7:26 AM EDT Hospital Encounter [facility] [address] [place] [id number] Joshua Dickens MD [address] [place] [address] [facility] Start: 07-17-2023 End: 07-17-2023 Patient encounter procedure 07/17/2023 9:15 AM EST Office Visit [facility] [address] [place] [address] Shaikh Hahn MD [address] [place] [place] [address] Arrived [facility] Comment on above: Arrived Start: 02-10-2023 COVID-19 Vaccine ( season) COVID-19 Vaccine ( season) [facility] Start: 12-05-2022 DTaP,Tdap and Td Vaccines (2 - Tdap) DTaP,Tdap and Td Vaccines (2 - Tdap) [facility] Start: 11-18-2022 Screening for malign ant neoplasm of breast Mammogram [facility] Start: 1982 Screening for malign ant neoplasm of cervix Pap Smear [facility] Start: 1979 Adult BMI Follow Up Plan Adult BMI Follow Up Plan [facility] Start: 1973 Depression Screening Depression Scre ening [facility] Start: 1961 Screening for malign ant neoplasm of colon [facility] Immunizations Immunization Date Immunization Notes Care Provider Fa cility 04-24-2023 zoster vaccine recombinant Shaikh Jovani ASKEW Work Phone: [facility] 03-15-2023 Pneumococcal Conjuga te PCV 20 Shaikh Jovani ASKEW Work Phone: [facility] 03-15-2023 Seasonal, quadrivale nt, recombinant, injectable influenza vaccine, preservative free Shaikh Jovani ASKEW Work Phone: [facility] 04-16-2020 influenza, injectabl e, quadrivalent, preservative free Shaikh Jovani ASKEW Work Phone: [facility] 07-31-2019 Influenza, injectabl e, Madin Anastasiya Canine Kidney, preservative free, quadrivalent Shaikh Jovani ASKEW Work Phone: [facility] 04-19-2018 influenza, injectabl e, quadrivalent, preservative free Shaikh Jovani ASKEW Work Phone: [facility] 06-01-2017 influenza, seasonal, injectable, preservative free Shaikh Jovani ASKEW Work Phone: [facility] 03-29-2017 influenza, injectabl e, quadrivalent, preservative free Shaikh Jovani ASKEW Work Phone: [facility] 06-18-2015 influenza, seasonal, injectable, preservative free Shaikh Jovani ASKEW Work Phone: [facility] 12-05-2012 diphtheria, tetanus toxoids and pertussis vaccine Shaikh Jovani ASKEW Work Phone: [facility] Payers Date Payer Category Payer Private Health Insurance [id number] 1960 Unknown [id number] 2.16.84 [id number] 1960 Unknown [id number] 2.16.84 [id number] 1960 Unknown [id number] 2.16.8 [id number] 1960 Unknown [id number] 2.16.8 [id number] 1961 Unknown [id number] 2.16.8 [id number] 1961 Unknown [id number] 2.16.8 [id number] 1961 Unknown [id number] 2.16.8 [id number] 1961 Unknown [id number] 2.16.8 [id number] 1961 Unknown [id number] 2.16.8 [id number] 1961 Unknown [id number] 2.16.8 [id number] 1961 Unknown [id number] 2.16.84 [id number] 1961 Unknown [id number] 2.16.84 [id number] 1960 Unknown [id number] 2.16.84 [id number] 1960 Unknown [id number] 2.16.84 [id number] 1958 Private Health Insurance [id number] Social History Date Type Detail Facility Start: 06-12-1982 End: 01-29-2023 Tobacco smoking status NHIS Smokes tobacco daily [facility] Start: 06-12-1982 History of tobacco use Cigarette Smo ker [facility] Start: 07-23-2020 End: 01-29-2023 Cigarettes smoked current (pack per day) - Reported 1 [facility] Start: 06-29-2023 End: 07-17-2023 Alcohol intake Lifetime non-drinker (finding) [facility] Start: 07-23-2020 End: 01-29-2023 Tobacco use panel [facility] Start: 11-27-2022 Alcohol Comment Caffeine: none [facility] Start: 1960 Sex Assigned At Not on file N [facility] Start: 12-16-2021 Tobacco use and exposure Smoke less tobacco non-user [facility] Start: 08-24-2023 Alcohol intake Current drinke r of alcohol (finding) [facility] Frequency of Alcohol Consumption Never [facility] Start: 08-19-2021 Alcohol Comment rarely [facility] Medical Equipment Procedure Code Equipment Code Equipment Origin al Text Equipment Identifier Dates Cement Bn Bio 40 gm Rpl [id number] - [id number] Start: 09-02-2021 Insert Artc 6-9 Cd 10mm Kn Rt Post Stab Pe Persona - [id number] Start: 09-02-2021 Baseplate Tib 5d D Kn Rt Cmnt Stm Persona Tiv Strl - [id number] Start: 09-02-2021 History of Present illness Narrative 08-24-2023 NILDA Turner - 08/24/2023 9:15 AM EDT Note Date & Type Note Facility 08-24-2023 History of Present illness Narrative [facility] [address] [place] [address] Patient: Cristofer Heath Sex: female : 1960 Age: 63 y.o. PCP: SHAIKH JOVANI MD 08/24/2023 Cristofer Heath is here for a(n) follow up. She reports increased pain in her bilateral SI joint and low back pain. Pain is same as before her last SI joint injections which worked well for 3 months. Chief Complaint Patient presents with Back Pain HPI: PT/HEP 07/2022 not helpful Back: 09/23/22 Caudal w/60% relief for 3 days 10/21/22 Caudal w/60% relief continued 12/23/22 Bilateral SI with 80% continued relief 2023 bilateral sacroiliac injection with 100% relief that continues as of this date Back Pain This is a chronic problem. The current episode started more than 1 year ago (@ 2020). The problem occurs constantly. The problem has been gradually worsening since onset. The pain is present in the lumbar spine (anterior aspect of left iliac crest). The quality of the pain is described as aching. The pain does not radiate. The pain is at a severity of 5/10 (can get to 10/10 especially with standing). The patient is experiencing no pain. The symptoms are aggravated by standing. Stiffness is present: na. Associated symptoms include numbness (intermittently to right foot with prolonged ambulation. Subsides when sitting). Pertinent negatives include no bladder incontinence, bowel incontinence, chest pain, fever, leg pain, tingling or weakness. Risk factors include poor posture, obesity and lack of exercise. Treatments tried: PT/HEP 07/2022, rest, ice/heat, meds: NSAIDs (mobic, celebrex), tylenol, baclofen, volteran with little releif. The treatment provided moderate relief. The effect of pain on patient's ADLS: Moderate Impairment. 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 Low back pain Neck pain Obesity Osteoporosis Right flank pain Sleep apnea CPAP Spontaneous Visual impairment Past Surgical History: Procedure Laterality Date APPENDECTOMY SECTION 1986, 1988 CYST REMOVAL Right 1980 ganglion CYSTOSCOPY - Bilateral Retrogrades Bilateral 04/03/2018 Performed by Chepe Bustamante MD at [facility]ERY CYSTOSCOPY W/ URETERAL STENT PLACEMENT 2014 x 2 DILATION AND CURETTAGE OF UTERUS 1981, 1983 HYSTERECTOMY 1997 total INJECTION BLOCK EPIDURAL CAUDAL STEROID N/A 10/21/2022 Performed by Joshua Dickens MD at [facility] INJECTION BLOCK EPIDURAL CAUDAL STEROID N/A 09/23/2022 Performed by Joshua Dickens MD at [facility] INJECTION BLOCK SACROILIAC JOINT Bilateral 2023 Performed by Joshua Dickens MD at [facility] INJECTION BLOCK SACROILIAC JOINT Bilateral 12/23/2022 Performed by Joshua Dickens MD at [facility] OOPHORECTOMY OTHER SURGICAL HISTORY 1982 uterus reconstruction REPLACEMENT TOTAL JOINT KNEE Right 09/02/[address] Sylvester MD at [facility] TONSILLECTOMY Allergies Allergen Reactions Avelox [Moxifloxacin] Nausea and Vomiting Bee Venom Protein (Honey Bee) Anaphylaxis Codeine Nausea and Vomiting Ultram [Tramadol] Nausea and Vomiting Bactrim [Sulfamethoxazole-Trimethoprim] Rash Cephalosporins Rash Family History Problem Relation Age of Onset Cancer Mother bladder Liver disease Father alpha antitrypsin Diabetes Sister Diabetes Daughter Obesity Daughter Diabetes Daughter Multiple sclerosis Daughter Heart attack Paternal Grandfather Diabetes Brother Leukemia Brother Anesthesia problems Neg Hx Breast cancer Neg Hx Social History Socioeconomic History Marital status: Spouse name: Not on file Number of children: Not on file Years of education: Not on file Highest education level: Not on file Occupational History Not on file Tobacco Use Smoking status: Every Day Packs/day: 1.00 Years: 40.00 Additional pack years: 0.00 Total pack years: 40.00 Types: Cigarettes Start date: 06/12/1982 Smokeless tobacco: Never Vaping Use Vaping Use: Never used Substance and Sexual Activity Alcohol use: Yes Comment: rarely Drug use: No Sexual activity: Defer Partners: Male Other Topics Concern Not on file Social History Narrative Not on file Social Determinants of Health Financial Resource Strain: Not on file Food Insecurity: No Food Insecurity (08/24/2023) Hunger Screening Food Insecurity - Worry: Never True Food Insecurity - Inability: Never True Transportation Needs: Not on file Physical Activity: Not on file Stress: Not on file Social Connections: Not on file Interpersonal Safety: Not on file Housing Instability: Not on file Review of Systems Constitutional: Negative for fever. HENT: Negative. Respiratory: Positive for cough. Negative for shortness of breath. Cardiovascular: Negative for chest pain. Gastrointestinal: Positive for constipation. Negative for bowel incontinence and diarrhea. Genitourinary: Negative for bladder incontinence, difficulty urinating and frequency. Musculoskeletal: Positive for back pain. Skin: Negative for rash and wound. Neurological: Positive for numbness (intermittently to right foot with prolonged ambulation. Subsides when sitting). Negative for tingling and weakness. Vital Signs: BP 137/75 Pulse 58 Resp 14 Ht 162.6 cm (5' 4 ) Wt 87.5 kg (193 lb) SpO2 98% BMI 33.13 kg/m Physical Exam: GENERAL - Healthy patient that appears stated age. HEENT - Normocephalic / Atraumatic, Extraoccular movements intact, trachea midline, thyroid within normal limits. CV - pulse regular, Warm extremities with appropriate color of nailbeds. RESP - No obvious wheezing, No Shortness of Breath, No overexertion response to exam maneuvers. COORDINATION - remains intact. PSYCH - Alert and Oriented x4, Attentive and appropriate, constitutionally normal, displays normal mood and affect per situation, answered questions appropriately during examination, demonstrated appropriate attention during discussion, demonstrated appropriate cognitive reasoning and understanding of the medical condition by asking appropriate questions regarding the diagnosis and risks/benefits/alternatives of treatment modalities. No obvious deficits in memory, reasoning, or intellect. Lumbar: SKIN - No rashes or bruising in the area of the patient s pain. LYMPH NODES - demonstrate no obvious enlargement. EXTREMITIES - Lower extremities are warm, with minimal edema and palpable pulses. No significant tenderness to palpation noted in the lumbar spine and paraspinal musculature. Mild pain is elicited with flexion, extension, and lateral rotation of the lumbar spine. Range of motion is not diminished with these motions. Facet palpation is negative for significant pain and facet loading maneuvers elicit only mild pain that is not concordant with the patient s normal pain complaints. STRENGTH - noted to be 5 out of 5 all muscle groups bilateral lower extremities including muscles involving hip flexion and abduction, knee flexion and extension, as well as foot dorsiflexion and plantarflexion. No notable atrophy, fasciculations or spasm. SENSORY - No notable sensory deficits in the bilateral lower extremities to touch or pinprick in all dermatomal distributions. Straight Leg Raise is negative bilaterally. Tenderness to palpation is noted over the Bilateral SacroIliac Joint: Fabere sign (Julián's Test) is significantly positive, as is compression and distraction of the sacroiliac joints, which is consistent with some of the patient's normal pain. Gait is normal. Assessment/Treatment Plan: Cristofer was seen today for back pain. Diagnoses and all orders for this visit: Disorder of sacrum - Case request operating room: INJECTION BLOCK SACROILIAC JOINT Bilateral Sacroiliac Joint Injection - under fluoroscopy with the use of contrast dye (unless contraindicated) It is hopeful that the described procedure will provide symptomatic pain relief. It is felt to be medically necessary noting that the patient has tried and failed more conservative modalities of therapy and this is the next most appropriate step. The procedure was described in detail to the patient as well as the potential benefits of pain reduction alongside risks of the procedure and alternatives. Risks were described as including, but not limited to bleeding, infection, nerve damage, spinal cord injury, paralysis, stroke, dural puncture headache, and medication reaction. The patient expressed understanding regarding the risks and benefits and wishes to proceed. Diagnostic SI injections should provide information to confirm that the noted SI Joint arthropathy is the patient s most significant pain generator. If this provides significant but only temporary pain relief, the patient may in the future be a candidate for radiofrequency denervation of the SI joint to provide pain relief for approximately 1 year. Follow up 2 weeks after procedure The medications prescribed have been reviewed for medication interactions/contraindications and/or for upcoming procedures: continue current medication regimen without any changes. DISCUSSION: Treatment options discussed with patient and all questions answered to patient's satisfaction. Discussed the rules and regulations surrounding prescription of opioids and compliance at length. Failure to follow the rules and regulation will result in tapering and discontinuation of medications if applicable. Prescribed medication that requires intensive monitoring for toxicity We do not currently prescribe any controlled substance from this practice. It is noted that the patient did have good response from the previously performed procedure. It is felt that the patient would benefit from an additional procedure of the same nature in that the same symptoms have returned. It is hopeful that this additional injection will provide additional benefit and duration when combined with the previous injection. The spine model was demonstrated and MRI was reviewed and used to explain the condition. Chronic conditions not treated during this visit that affected my overall medical decision making: Comorbidity- Obesity The patient does have a comorbid condition of obesity. This will be taken into account in that obesity will contribute to certain pain conditions. It can contribute to pain from degenerative disc disease as well as osteoarthritis of the joints. Many neuropathic symptoms are also amplified due to axial spine loading. Special benefits will also need to be given to procedures. Many procedures are technically more difficult in the light of severe obesity. I will also consider the possibility of undiagnosed obstructive sleep apnea (which often accompanies obesity) when prescribing any narcotic medications. I will weigh the risks and benefits and fully discuss them with the patient for these reasons. OARRS: Reviewed. Scribe Statement: Scribed for and in the presence of NILDA TURNER by Estefany Hoffman CNA. Provider Statement: I, NILDA TURNER, personally performed the services described in the documentation, as scribed by Estefany Hoffman CNA in my presence, and it is both accurate and complete. Estefany Hoffman CNA 08/24/23 1031 NILDA Turner 08/24/23 1208 documented in this encounter [facility] Instructions 08-24-2023 Patient Instructions Note Date & Type Note Facility 08-24-2023 Instructions Estefany Hoffman CNA - 08/24/2023 9:15 AM EDT Facet Injection / Medial Branch Block (MBB) / Sacroiliac (SI) Joint Injection A facet injection and sacroiliac joint injection are injections of local anesthetic and steroid into a joint in the spine. A medial branch block is similar, but the medication is placed outside the joint space near the nerve that supplies the joint called the medial branch (steroid may or may not be used). You may require multiple injections depending upon how many joints are involved. How Long Will This Procedure Last? The extent and duration of pain relief may depend on the amount of inflammation and how many areas are involved. Other coexisting factors may be responsible for your pain. If your pain goes away for a short time, but then returns, you may be a candidate for radiofrequency ablation (RFA). Activity Be active. Attempt activities and movements that typically cause pain to see if it feels better while doing them. We will give you a pain diary. Please fill this out as directed by your nurse in pre-op. This will help your doctor determine the effectiveness of the injection, and how to proceed. Bring the pain diary with you to your follow-up appointment. Medications You should not take your pain medications for 4-6 hours before or after the injection in order to properly diagnose if the injection provides adequate relief. Resume your routine medications after your procedure. You may resume blood thinners per your regular schedule after the procedure. If you received sedation: If you received sedation for your procedure, you may feel sleepy or not yourself for several hours today. For the next 24 hours avoid activities that requires alertness or coordination. This includes: Driving or operating heavy machinery Using power tools Consuming alcohol Do not make important or complex decisions or sign legal documents in the next 24 hours. Other Instructions: If you feel severe pain at the injection site with swelling and redness, increased leg weakness, a fever of 101 or higher, headache (or worsening headache), changes in vision or urinary retention: Please call the office at , or have someone take you to the nearest emergency room. Tell the emergency room staff that you recently had a spine injection. A doctor must evaluate you for bleeding and injection complications. If you lose control over bowel, bladder, or legs: Go to the nearest emergency room. documented in this encounter [facility] History of Present illness Narrative 07-17-2023 Shaikh Jovani MD - 07/17/2023 9:47 AM Lissette Hahn MD - 07/17/2023 9:46 AM Lissette Hahn MD - 07/17/2023 9:44 AM Lissette Hahn MD - 07/17/2023 9:44 AM EST Note Date & Type Note Facility 07-17-2023 History of Presen t illness Narrative Associated Problem(s): Tobacco abuse Patient trying to quit smoking. She is smoking half a pack now. She is worried about using chantix because her daughter had an adverse reaction to it. She is agreeable to try and use Bupropion. Patient counseled on smoking/tobacco cessation. Patient educated on harmful effects of smoking cigarettes/tobacco including increased risk of cardiovascular diseases, chronic lung disease and multiple cancers. Patient was educated and informed of different behavioral and therapeutic interventions that can help with smoking/tobacco use. A total of over 3 minutes and up to 10 minutes were spent on Smoking/Tobacco use counseling. Associated Problem(s): Major depressive disorder with single episode, in full remission ([facility]) Well controlled. Last appointment, she was weaned off of Prozac and her dose was decreased to 10 mg daily. Doing well on it. Associated Problem(s): HLD (hyperlipidemia) ([facility]) On Lipitor. C/w same. Associated Problem(s): URTI (acute upper respiratory infection) She reports feeling tired for past few days. For a couple of days, she also felt lightheaded and dizzy. Her BP was at goal and her blood glucose were normal Patient's exam indicated bilateral suppurative otitis media along with pharyngitis. Will call in oral Azithromycin for her. Associated Problem(s): Primary hypertension ([facility]) Asymptomatic. Denies CP, SOB, palpitations. Monitoring w/o medications. Denies lightheadedness, dizziness, syncope, presyncope. Patient encouraged to continue with home BP monitoring and call office if she experiences orthostatic symptoms or persistently elevated BP. Associated Problem(s): Sleep apnea H/o IRIS, being treated with CPAP. Patient has not had a Sleep Study over 15 years ago. Refer to Sleep Clinic. Asking for a referral to Dr. Hennessy. Patient here for a follow up from smoking patient states she has slowed down but has not quit . States she has been feeling light headed and has checked her sugar and bp but was normal Subjective Patient ID: Cristofer Heath is a 63 y.o. female who presents for Follow-up. Patient here for regular follow. She reports feeling tired and a few days ago, she felt lightheaded, dizzy. She tells me her grandchildren were sick and she was around them. She has not been able to quit smoking but working on it. She is down to half pack a day. Did not use nicotine patches. Current Outpatient Medications on File Prior to Visit Medication Sig Dispense Refill alendronate (Fosamax) 35 MG tablet Take 1 tablet by mouth once a week 12 tablet 0 atorvastatin (Lipitor) 20 MG tablet Take 20 mg by mouth 1 (one) time each day at the same time. calcium carbonate (Os-Julio César) 1250 (500 Ca) MG tablet Take 1,250 mg by mouth in the morning. EPINEPHrine (EpiPen 2-Elliot) 0.3 MG/0.3ML injection syringe Inject as directed 1 (one) time. FLUoxetine (PROzac) 10 MG capsule Take 10 mg by mouth in the morning. fluticasone (Flonase) 50 MCG/ACT nasal spray Administer 1 spray into each nostril in the morning. melatonin 5 MG tablet Take 10 mg by mouth at bedtime. meloxicam (Mobic) 15 MG tablet Take 15 mg by mouth in the morning. traZODone (Desyrel) 50 MG tablet Take 50 mg by mouth at bedtime. albuterol HFA 90 mcg/act inhaler Inhale 1 puff every 4 (four) hours if needed. [DISCONTINUED] cholecalciferol (Vitamin D-3) 20 MCG (800 UNIT) tablet Take 1 tablet (20 mcg) by mouth in the morning. 30 tablet 11 [DISCONTINUED] cholecalciferol (Vitamin D-3) 25 MCG (1000 UT) tablet Take 25 mcg by mouth in the morning. [DISCONTINUED] fexofenadine (Bernie) 180 MG tablet Take 180 mg by mouth in the morning. [DISCONTINUED] FLUoxetine (PROzac) 20 MG capsule Take 20 mg by mouth in the morning. [DISCONTINUED] traZODone (Desyrel) 50 MG tablet Take 50 mg by mouth at bedtime No current facility-administered medications on file prior to visit. Allergies Allergen Reactions Bee Venom Anaphylaxis Avelox [Moxifloxacin] Hives Bactrim [Sulfamethoxazole-Trimethoprim] Hives Cephalexin Hives Codeine GI intolerance Macrobid [Nitrofurantoin] Hives Mixed Vespid Venom GI intolerance Moxifloxacin Hcl In Nacl Sulfamethoxazole Hives Trimethoprim Hives Ultram [Tramadol] Hives Cephalosporins Rash cephalexin Review of System All systems negative except as mentioned in HPI. Visit Vitals BP 130/78 Pulse 66 Temp 98.1 F Resp 17 Ht 5' 4 Wt 193 lb 9.6 oz SpO2 96% BMI 33.23 kg/m Smoking Status Every Day BSA 1.99 m Patient Health Questionnaire-2 Score: 0 @LABRESULTS@ No images are attached to the encounter. Objective Comfortable, reports feeling tired. Otherwise, no active complaints. Physical Exam General: Comfortable, NAD HEENT: AT/NC. On ear exam - cloudy appearance of TM b/l, oropharyngeal mucosa was hyperemic. Resp: Normal RR, CTA b/l CVS: Normal HR, No mumur noted. Neuro: AAOX 3, moving all extremities. Psych: Calm, co operative, no HI/SI. Assessment/Plan Problem List Items Addressed This Visit HLD (hyperlipidemia) (CMS/HCC) On Lipitor. C/w same. Sleep apnea - Primary H/o IRIS, being treated with CPAP. Patient has not had a Sleep Study over 15 years ago. Refer to Sleep Clinic. Asking for a referral to Dr. Hennessy. Relevant Orders Ambulatory referral to Sleep Studies Tobacco abuse Patient trying to quit smoking. She is smoking half a pack now. She is worried about using chantix because her daughter had an adverse reaction to it. She is agreeable to try and use Bupropion. Patient counseled on smoking/tobacco cessation. Patient educated on harmful effects of smoking cigarettes/tobacco including increased risk of cardiovascular diseases, chronic lung disease and multiple cancers. Patient was educated and informed of different behavioral and therapeutic interventions that can help with smoking/tobacco use. A total of over 3 minutes and up to 10 minutes were spent on Smoking/Tobacco use counseling. Relevant Medications buPROPion XL (Wellbutrin XL) 150 MG 24 hr tablet Primary hypertension (CMS/HCC) Asymptomatic. Denies CP, SOB, palpitations. Monitoring w/o medications. Denies lightheadedness, dizziness, syncope, presyncope. Patient encouraged to continue with home BP monitoring and call office if she experiences orthostatic symptoms or persistently elevated BP. URTI (acute upper respiratory infection) She reports feeling tired for past few days. For a couple of days, she also felt lightheaded and dizzy. Her BP was at goal and her blood glucose were normal Patient's exam indicated bilateral suppurative otitis media along with pharyngitis. Will call in oral Azithromycin for her. Relevant Medications azithromycin (Zithromax) 250 MG tablet Major depressive disorder with single episode, in full remission (CMS/HCC) Well controlled. Last appointment, she was weaned off of Prozac and her dose was decreased to 10 mg daily. Doing well on it. Follow up in about 6 months (around 01/15/2024). documented in this encounter [facility] Evaluation note Note Date & Type Note Facility Evaluation note Diagnosis Obstructive sleep apnea syndrome- Primary Obstructive sleep apnea (adult) (pediatric) Hyperlipidemia, unspecified hyperlipidemia type (CMS/HCC) Primary hypertension (CMS/HCC) Unspecified essential hypertension URTI (acute upper respiratory infection) Acute upper respiratory infections of unspecified site Major depressive disorder with single episode, in full remission (CMS/HCC) Tobacco abuse Tobacco use disorder documented in this encounter [facility] Evaluation note Note Date & Type Note Facility Evaluation note Diagnosis Disorder of sacrum- Primary Disorders of sacrum Disorder of sacrum- Primary Disorders of sacrum Disorder of sacrum Disorders of sacrum documented [facility] encounter [facility] Reason for referral (narrative) Consultation (Routine) - Pending Review Note Date & Type Note Facility Reason for referral (narrati ve) Specialty Diagnoses / Procedures Referred By Contac t Referred To Contact Sleep Medicine Diagnoses Obstructive sleep apnea syndrome Procedures OR OFFICE/OUTPATIENT [facility] 60 MINUTES Shaikh Hahn MD [address] [place] [address] Osiris Bowden MD [facility] [place] [address] [place] [address] Referral ID Status Reason Start Date Expiration Date Visits Requested Visits Authorized [id number] Pending Review Specialty Services Required 07/17/2023 01/13/2024 1 1 [facility] Summary Purpose Family History No Family History Records FoundNo Family History Records FoundNo Family History Records FoundNo Family History Records Found Advance Directives No Advanced Directives Records FoundNo Advanced Directives Records FoundNo Advanced Directives Records FoundNo Advanced Directives Records Found Reason for Referral Specialty Diagnoses / Procedures Referred By Contac t Referred To Contact Diagnoses Disorder of sacrum Procedures Case request operating room: INJECTION BLOCK SACROILIAC JOINT Yadiel Scott, NILDA [address], [address] [place] [address] Referral ID Status Reason Start Date Expiration Date V isits Requested Visits Authorized [id number] Pending Review 08/24/2023 08/23/2024 1 1 Additional Source Comments INFORMATION SOURCE (unrecogn ized section and content) DATE CREATED AUTHOR 08/19/2019 [facility] DATE CREATED AUTHOR AUTHOR'S ORGANIZ ATION 06/03/2022 [facility] DATE CREATED AUTHOR AUTHOR'S ORGANIZ ATION 01/16/2024 [facility] DATE CREATED AUTHOR AUTHOR'S ORGANIZ ATION 01/26/2024 [facility] d[facility] Specialists EP[employer] Care Teams (unrecognized sec tion and content) Senior Health Educator Relationship Specialty Start Date End Date Shaikh Hahn MD PCP - General Internal Medicine 11/28/22 Senior Health Educator Relationship Specialty Start Date End Date Shaikh Hahn MD PCP - General Internal Medicine 11/28/22 Senior Health Educator Relationship Specialty Start Date End Date Shaikh Hahn MD [address] [place] [id number] PCP - General Internal Medicine 11/16/21 Reason for Visit (unrecogniz ed section and content) Reason Comments Follow-up Reason Comments Back Pain FOR RECORDS PERTAINING TO PATIENTS WHO ARE OR HAVE BEEN ENROLLED IN A CHEMICAL DEPENDENCY/SUBSTANCEABUSE PROGRAM, SOME INFORMATION MAY BE OMITTED. This clinical summary was aggregated from multiple sources. Caution should be exercised in using it in the provision of clinical care. This summary normalizes information from multiple sources, and as a consequence, information in this document may materially change the coding, format and clinical context of patient data. In addition, data may be omitted in some cases. CLINICAL DECISIONS SHOULD BE BASED ON THE PRIMARY CLINICAL RECORDS. [employer] provides no warranty or guarantee of the accuracy or completeness of information in this document.
== END 2024-01-29 09:31 | disposition home or self-care (01) ==
LOC: MAMMO 09:30
PROVIDERS: PCP Internal Medicine; Visit Provider Obstetrics & Gynecology
DX: Z12.31 Encounter for screening mammogram for malignant neoplasm of breast (principal); Z80.52 Family history of malignant neoplasm of bladder
CPT/HCPCS: 77063; 77067

== ENCOUNTER 2024-05-21 13:32 | Outpatient (OUT) | payer OTHER, SELFPAY ==
--- NOTE | 2024-05-21 13:34 | CT_ITS ---
[address] [address] Patient Name: CRISTOFER HEATH MRN: [id number] date: 1960 Sex: F Assigned Patient Location: CT Current Patient Location: Accession/Order Number: [id number] Exam Date: 05/21/2024 13:50 Report Date: 05/22/2024 06:13 At the request of: SABA STEIN Procedure: CT lung screening low-dose EXAMINATION: CT lung screening low-dose HISTORY: Nicotine Dependence COMPARISON: CT lung screening 01/25/2023 TECHNIQUE: Axial, Coronal, and Sagittal images were created without the administration of IV contrast material. Dose reduction techniques were achieved by using automated exposure control and/or adjustment of mA and/or kV according to patient size and/or use of iterative reconstruction technique. FINDINGS: LUNGS: No visible pulmonary disease. PLEURA: No mass, effusion, or pneumothorax. VASCULATURE: No abnormality. MEGGAN: No mass or pathologic adenopathy. MEDIASTINUM: No mass or pathologic adenopathy. CARDIAC: No enlargement, pericardial thickening, or pericardial effusion. Coronary Artery calcifications: Coronary calcifications are moderate. AORTA: No aneurysm or dissection. CHEST WALL: No mass or axillary adenopathy BONES: No bone lesion or fracture. LIMITED ABDOMEN: No suspicious findings. Limited images of the upper abdomen. OTHER: Negative. CT/CT lung screening low-dose IMPRESSION: 1. Lung-RADS Category 1 Negative. No nodules and definitely benign nodules. Continue annual screening with LDCT in 12 months. Electronically authenticated by: CHETNA VIRK Date: 05/22/2024 06:13
== END 2024-05-21 13:33 | disposition home or self-care (01) ==
LOC: CT 13:32
PROVIDERS: Visit Provider Internal Medicine
DX: F17.210 Nicotine dependence, cigarettes, uncomplicated (principal); Z12.2 Encounter for screening for malignant neoplasm of respiratory organs
CPT/HCPCS: 71271

== ENCOUNTER 2024-07-02 09:54 | Outpatient (OUT) | payer OTHER, SELFPAY | END 2024-07-02 09:55 | disposition home or self-care (01) | LOC: SLEEP 09:55 | PROVIDERS: PCP Internal Medicine; Visit Provider Internal Medicine | DX: G47.33 Obstructive sleep apnea (adult) (pediatric) (principal) | CPT/HCPCS: 95806 ==

== ENCOUNTER 2024-07-08 07:49 | Emergency (ER) | payer OTHER, SELFPAY ==
[2024-07-08 07:56] VITALS: BP 152/74; PULSE 64; TEMP 36.6; O2SAT 96; BMI 34.3
--- NOTE | 2024-07-08 08:11 | ED.GENADUL1 ---
HPI HPI - General Adult General Chief complaint: Back Pain/Injury Stated complaint: BACK AND HIP PAIN Time Seen by Provider: 07/08/24 08:00 Source: patient Mode of arrival: walk-in History of Present Illness HPI narrative: 64-year-old female presents to the emergency department for right lower back pain. She told me it started at 2:00 this morning when she was in bed and it was not precipitated by any injury. Her tells me that she seems to have had some pain like this yesterday as well. No weakness or numbness in her legs and no dysuria or hematuria. She has a history of chronic back issues and sees a pain management doctor and gets injections occasionally. She reports the only pain medication she is on is diclofenac. There was no precipitating injury or unusual activity. Related Data Home Medications ?Medication ?Instructions ?Recorded ?Confirmed albuterol sulfate 90 mcg/actuation 1 puff inhalation Q4H PRN 07/08/24 07/08/24 aerosol inhaler shortness of breath or wheezing alendronate 35 mg tablet 35 mg PO .weekly 07/08/24 07/08/24 atorvastatin 20 mg tablet 20 mg PO DAILY 07/08/24 07/08/24 benzonatate 100 mg capsule 100 mg PO DAILY 07/08/24 07/08/24 bupropion HCl 150 mg 24 hr tablet, 150 mg PO DAILY 07/08/24 07/08/24 extended release fluoxetine 10 mg capsule 10 mg PO DAILY 07/08/24 07/08/24 hydrochlorothiazide 12.5 mg tablet 12.5 mg PO DAILY 07/08/24 07/08/24 trazodone 50 mg tablet 50 mg PO DAILY 07/08/24 07/08/24 Previous Rx's ?Medication ?Instructions ?Recorded methocarbamol 500 mg tablet 500 mg PO Q8H PRN pain #20 tabs 07/08/24 tramadol 50 mg tablet 50 mg PO Q8H PRN pain 5 days #20 07/08/24 tabs Allergies Allergy/AdvReac Type Severity Reaction Status Date / Time codeine AdvReac Severe Vomiting Verified 07/08/24 08:00 Sulfa (Sulfonamide AdvReac Severe Hives Verified 07/08/24 07:56 Antibiotics) Opioid HPI Opioid Management Most Recent Opioid Data: Last Pain Scale 2 07/08/24 08:55 07/08/24 Last ED Pain Assessment 07/08/24 08:55 Review of Systems ROS Narrative A ten point review of systems is negative except as noted above. PFSH PFSH Social History Little interest or pleasure in doing things: not at all Feeling down, depressed, or hopeless: not at all Exam Narrative Exam Narrative: Nurses note and vital signs reviewed and patient is not hypoxic. General: The patient appears mildly uncomfortable and in no apparent distress. Skin: Warm, dry, no pallor noted. There is no rash noted. Head: Normocephalic, atraumatic Eye: Normal conjunctiva, no drainage Ears, Nose, Mouth, and Throat: oral mucosa is moist. Nares patent. Cardiovascular: Regular Rate and Rhythm Respiratory: Patient is in no distress, no accessory muscle use, lungs are clear to auscultation, no wheezing, rales or rhonchi Back: No bruise or rash or focal area of tenderness to palpation GI: No tenderness or distention Musculoskeletal: The patient has no evidence of calf tenderness, no pitting edema, symmetrical pulses noted bilaterally Neurological: A&O, normal speech Psychiatric: Cooperative Constitutional Vital Signs, click to edit/add: Last Vital Signs Temp 97.9 F 07/08/24 07:56 Pulse 64 07/08/24 07:56 Resp 18 07/08/24 07:56 BP 152/74 H 07/08/24 07:56 Pulse Ox 96 07/08/24 07:56 O2 Del Method Room Air 07/08/24 07:56 Course Vital Signs Vital signs: Vital Signs Temperature 97.9 F 07/08/24 07:56 Pulse Rate 64 07/08/24 07:56 Respiratory Rate 18 07/08/24 07:56 Blood Pressure 152/74 H 07/08/24 07:56 Pulse Oximetry 96 07/08/24 07:56 Oxygen Delivery Method Room Air 07/08/24 07:56 Temperature 97.9 F 07/08/24 07:56 Pulse Rate 64 07/08/24 07:56 Respiratory Rate 18 07/08/24 07:56 Blood Pressure 152/74 H 07/08/24 07:56 Pulse Oximetry 96 07/08/24 07:56 Oxygen Delivery Method Room Air 07/08/24 07:56 Medical Decision Making MDM Narrative Medical decision making narrative: Urinalysis is negative and lumbar films showed no acute findings. She was feeling improved with Toradol and Norflex and is prescribed Ultram and Robaxin. Treatment diagnosis and follow-up were discussed with the patient. Differential Diagnosis Differential Diagnosis: Lumbar strain, compression fracture, UTI Lab Data Lab results reviewed: Yes I reviewed the patient's lab results Labs: Lab Results 07/08/24 Range/Units 08:39 Urine Color Yellow (YELLOW) Urine Clarity Clear (CLEAR) Urine pH 6.0 (5.0-9.0) Ur Specific [place] 1.020 (1.005-1.025) Urine Protein Negative (NEG/TRACE) mg/dL Urine Glucose (UA) Negative (NEGATIVE) mg/dL Urine Ketones Negative (NEGATIVE) mg/dL Urine Occult Blood Negative (NEGATIVE) Urine Nitrite Negative (NEGATIVE) Urine Bilirubin Negative (NEGATIVE) Urine Urobilinogen 0.2 (0.2-1.0) EU/dL Ur Leukocyte Esterase Negative (NEGATIVE) Urine RBC None seen (0-2) #/HPF Urine WBC None seen (NONE SEEN) #/HPF Ur Squamous Epith Cells Few A (NONE/RARE) #/LPF Urine Bacteria None seen (NONE SEEN) #/HPF Urine Mucus Moderate A (NONE SEEN) Imaging Data Lumbar x-ray: Radiologist's impression: ITS Impressions Lumbar Spine X-Ray 07/08/24 08:28 IMPRESSION: 1. No appreciable acute abnormality. 2. Grossly stable scoliotic curvature and moderate-marked degenerative changes of lumbar spine. Electronically authenticated by: CHETNA VIRK Date: 07/08/2024 08:46 Discharge Plan Discharge Chief Complaint: Back Pain/Injury Clinical Impression: Low back pain Patient Disposition: Home, Self-Care Time of Disposition Decision: 09:17 Condition: Good Mode of Transportation: Private Vehicle Prescriptions / Home Meds: New methocarbamol 500 mg tablet 500 mg PO Q8H PRN (Reason: pain) Qty: 20 0RF tramadol 50 mg tablet 50 mg PO Q8H PRN (Reason: pain) 5 Days Qty: 20 0RF No Action albuterol sulfate 90 mcg/actuation HFA aerosol inhaler 1 puff INHALATION Q4H PRN (Reason: shortness of breath or wheezing) alendronate 35 mg tablet 35 mg PO .weekly atorvastatin 20 mg tablet 20 mg PO DAILY benzonatate 100 mg capsule 100 mg PO DAILY bupropion HCl 150 mg tablet extended release 24 hr 150 mg PO DAILY fluoxetine 10 mg capsule 10 mg PO DAILY hydrochlorothiazide 12.5 mg tablet 12.5 mg PO DAILY trazodone 50 mg tablet 50 mg PO DAILY Print Language: Sri L[place] Instructions: Acute Low Back Pain (ED) Referrals: SINDHU OLIVARES [Primary Care Provider] - 1 week
[2024-07-08] MEDS: ORPHENADRINE 60 MG/ 2 ML VIAL IM (08:14)
[2024-07-08] MEDS: KETOROLAC TROMETHAMINE 60 MG/2 ML VIAL IM (08:14)
--- OUTSIDE RECORDS SUMMARY | 2024-07-08 08:17 | XMS_ITS | CCD ---
Author Organization [facility] Inform ion Partnership [facility] Care Team Providers Care Criminal Intelligence Specialist Name Role Phone SHAIKH Truman HAHN Primary Care Unavailable DR Rene Byers Consulting Unavailable SHAIKH HAHN H Admitting Unavailable SHAIKH Truman HAHN Attending Unavailable SHAIKH HAHN H Consulting Unavailable SHAIKH HAHN H Primary Care Unavailable SHAIKH HAHN H Admitting Unavailable SHAIKH HAHN H Attending Unavailable ISRAEL HAHNIKH H Consulting Unavailable Shaikh Hahn MD Primary Care Provider Shaikh Hahn MD Primary Care Provider [phone] SHAIKH HAHN Attending Unavailable SHAIKH HAHN Attending Unavailable LUIS RUBALCAVA Attending Unavailable REMA TONG Attending UnavailREMA Garay Attending UnavailBahman Josue MD Primary Care Provider Rema Tong NP Unavailable [phone] Shaikh Hahn MD Primary Care Provider [phone] YADIEL SCOTT Attending Unavailable SHAIKH HAHN Referring Unavailable SHAIKH HAHN Primary Care Unavailable JOSHUA DICKENS Admitting Unavailable JOSHUA DICKENS Attending Unavailable SHAIKH HAHN Referring Unavailable JOVANI, Primary Care Unavailable JOSHUA DICKENS Attending Unavailable JOSHUA DICKENS Referring Unavailable SHAIKH HAHN Primary Care Unavailable MELLY RADER Attending Unavailable SHAIKH HAHN Primary Care Unavailable YADIEL SCOTT Attending [facility]available [facility] Referring [facility] Primary Care Unavailable NIVITO, YADIEL Gabriel Attending Unavailable [facility]WT[facility], [facility] Referring Unavailable [facility], [facility] Primary Care Unavailable DICKENS, JOSHUA E Admitting Unavailable DICKENS, JOSHUA E Attending Unavailable [facility], [facility] Referring [facility]available [facility], [facility] Primary Care Unavailable VÍCTOR SCOTT Attending Unavailable [facility], [facility] Referring Unavailable [facility], [facility] Primary Care Unavailable DICKENS, JOSHUA E Attending Unavailable DICKENS, JOSHUA E Referring Unavailable [facility], [facility] Primary Care Unavailable DICKENS, JOSHUA E Admitting Unavailable DICKENS, JOSHUA E Attending Unavailable DICKENS, JOSHUA E Referring Unavailable [facility], [facility] Primary Care Unavailable NIENBERG, YADIEL Gabriel Attending Unavailable [facility], [facility] Referring Unavailable [facility], [facility] Primary Care Unavailable DICKENS, JOSHUA E Admitting Unavailable DICKENS, JOSHUA E Attending Unavailable [facility], [facility] Referring Unavailable [facility], [facility] Primary Care Unavailable DICKENS, JOSHUA E Attending Unavailable DICKENS, JOSHUA E Referring Unavailable [facility], [facility] Primary Care Unavailable NIENBERG, YADIEL Gabriel Attending Unavailable [facility], [facility] Referring Unavailable [facility], [facility] Primary Care Unavailable DICKENS, JOSHUA E Admitting Unavailable DICKENS, JOSHUA E Attending Unavailable [facility], [facility] Referring Unavailable [facility], [facility] Primary Care Unavailable DICKENS, JOSHUA E Attending Unavailable DICKENS, JOSHUA E Referring Unavailable [facility], [facility] Primary Care Unavailable NIENBERGYADIEL Attending Unavailable [facility], [facility] Referring Unavailable FA[facility], [facility] Primary Care Unavailable DICKENS, JOSHUA E Admitting Unavailable DICKENS, JOSHUA E Attending Unavailable [facility], [facility] Referring Unavailable [facility] Primary Care Unavailable DICKENS, JOSHUA E Attending Unavailable DICKENS, JOSHUA E Referring Unavailable [facility] Primary Care Unavailable Allergies Allergy Classification Reported Allergen(s) Allergy Type Date of Onset Reaction(s) Facility (1 source) bee venom Drug allergy (disorder) [facility] Repository (1 source) Cephalexin Drug Allergy [facility] Repository (2 sources) Codeine; Translations: [CODEINE] Drug Allergy 05-18-20 16 [facility] Repository (1 source) moxifloxacin Drug Allergy [facility] Repository (1 source) Sulfamethoxazole / Trimethoprim Drug Allergy [facility] Repository (1 source) traMADol Drug Allergy [facility] Repository (20 sources) Cephalexin Drug Allergy 11-26-19 23 Hives [facility] (20 sources) Codeine Drug Allergy 10-13-19 12 GI intolerance, Nausea, Vomiting, Nausea Only [facility] (20 sources) Mixed vespid venom Propensity to adverse reactions 11-26-19 23 GI intolerance [facility] (20 sources) moxifloxacin; Translations: [MOXIFLOXACIN] Drug Allergy 05-18-20 16 Hives, Nausea, Vomiting, Nausea Only [facility] Work Phone: (20 sources) Nitrofurantoin Drug Allergy 11-26-[address] [facility] (20 sources) Sulfamethoxazole / Trimethoprim; Translations: [SULFAMETHOXAZOLE-T RIMETHOPRIM] Drug Allergy 04-22-20 11 Hives, Rash [facility] (20 sources) traMADol; Translations: [TRAMADOL] Drug Allergy 05-18-20 16 Hives, Nausea, Vomiting, Nausea Only [facility] (20 sources) Cephalosporins (Antibiotic); Translations: [CEPHALOSPORINS] Drug Intolerance 04-19-20 12 Rash [facility] (20 sources) Honey bee venom Allergy to substance 10-13-19 12 Anaphylaxis [facility] (20 sources) Sulfamethoxazole Allergy to substance 02-11-[address] [facility] (20 sources) Trimethoprim Drug Allergy 02-11-[address] [facility] (20 sources) Moxifloxacin Hcl In Nacl Drug Intolerance 04-22-20 11 [facility] (4 sources) Cephalosporins (Antibiotic) Propensity to adverse reactions to drug 05-18-20 16 [facility] Bee Venom Protein (Honey Bee); Translations: [BEE VENOM PROTEIN (HONEY BEE)] Propensity to adverse reactions to drug 10-13-19 12 Anaphylaxis [facility] Medications Current Medications Medication Drug Class(es) Dates Sig (Normalized) Sig (Original) acetaminophen 500 mg oral tablet (4 sources) take 2 tablets by mouth every six hours as needed for pain acetaminophen (TYLENOL) 500 mg tablet Take 2 tablets (1,000 mg total) by mouth every 6 (six) hours as needed for pain. Active [id number] 200 actuat albuterol 0.09 mg/actuat metered dose inhaler (20 sources) beta2-Adrenergic Agonist Start: 10-04-2023 take 1 puff(s) by inhalation every four hours for wheezing albuterol HFA 90 mcg/act inhaler Indications: URTI (acute upper respiratory infection) , Wheezing-associated respiratory infection (WARI) , Non-recurrent acute suppurative otitis media of both ears without spontaneous rupture of tympanic membranes Inhale 1 puff every 4 (four) hours if needed for shortness of breath or wheezing 18 g 10/04/2023 Active Start: 10-04-2023 take 1 puff(s) by in halation every four hours as needed albuterol (PROVENTIL HFA;VENTOLIN HFA) 90 mcg/actuation inhaler Inhale 1 puff every 4 (four) hours as needed. 10/04/2023 Active Start: 04-13-2022 take 1 puff(s) by in halation every four hours albuterol HFA 90 mcg/act inhaler Inhale 1 puff every 4 (four) hours if needed. 0 04/13/2022 Active alendronic acid 35 mg oral tablet (20 sources) Bisphosphonate Start: 02-19-2024 alendronate (F osamax) 35 MG tablet Indications: Osteopenia, unspecified location Take 1 tablet (35 mg) by mouth every 7 (seven) days 12 tablet 1 02/19/2024 Active Start: 09-19-2023 End: 02-19-2024 take 1 tablet by mouth every week alendronate (Fosamax) 35 MG tablet Indications: Osteopenia, unspecified location Take 1 tablet by mouth once a week 12 tablet 1 09/19/2023 02/19/2024 Discontinued (Reorder) Start: 06-13-2023 take 1 tablet by brian th every week alendronate (Fosamax) 35 MG tablet Indications: Osteopenia, unspecified location Take 1 tablet by mouth once a week 12 tablet 0 06/13/2023 Active Start: 03-26-2016 take 10 mg by mouth every week alendronate (FOSAMAX) 35 mg tablet Take 10 mg by mouth once a week. 03/26/2016 Active Start: 03-26-2016 take 1 tablet by brian th once daily alendronate (FOSAMAX) 10 mg tablet Take 1 tablet (10 mg total) by mouth nightly. 0 03/26/2016 Active ascorbic acid 1000 mg oral tablet (3 sources) Vitamin C take 1 tablet by mouth in the morning ascorbic acid, vitamin C, (VITAMIN C) 1000 mg tablet Take 1 tablet (1,000 mg total) by mouth in the morning. Active aspirin 81 mg delayed release oral tablet (1 source) Platelet Aggregation Inhibitor, Nonsteroidal Anti-inflammatory Drug Start: 08-06-19 22 aspirin 81 mg Indications: Primary osteoarthritis of right knee Take 1 tablet (81 mg total) by mouth 2 (two) times a day. To begin taking day one following your joint replacement 60 tablet 0 08/06/2021 Active atorvastatin 20 mg oral tablet (20 sources) HMG-CoA Reductase Inhibitor Start: 06-18-19 25 take 1 tablet by mouth once daily atorvastatin (Lipitor) 20 MG tablet Indications: Major depressive disorder with single episode, in full remission (CMS/HCC) Take 1 tablet (20 mg) by mouth 1 (one) time each day at the same time 90 tablet 06/18/2024 Active Start: 06-18-2024 take 1 tablet by brian th once daily atorvastatin (Lipitor) 20 MG tablet Indications: Major depressive disorder with single episode, in full remission (CMS/HCC) Take 1 tablet (20 mg) by mouth 1 (one) time each day at the same time 90 tablet 06/18/2024 Active Start: 2016 End: 06-18-2024 take 1 tablet by mouth once daily atorvastatin (Lipitor) 20 MG tablet Indications: Major depressive disorder with single episode, in full remission (CMS/HCC) Take 1 tablet (20 mg) by mouth 1 (one) time each day at the same time 30 tablet 2 04/09/2024 06/18/2024 Discontinued (Reorder) azithromycin 500 mg oral tablet (3 sources) Macrolide Antimicrobial Start: 05-16-2024 End: 05-19-2024 take 1 tablet by mouth once daily azithromycin (Zithromax) 500 MG tablet Indications: Upper respiratory tract infection, unspecified type Take 1 tablet (500 mg) by mouth Daily for 3 days 3 tablet 05/16/2024 05/19/2024 Active Start: 07-17-2023 End: 07-22-2023 azithromycin (Zithromax) 250 MG tablet Indications: URTI (acute upper respiratory infection) Take 1 tablet (250 mg) by mouth in the morning for 5 days. Take 2 pills on day 1, take 1 pill from day 2-5. 6 tablet 0 07/17/2023 07/22/2023 Active baclofen 10 mg oral tablet (3 sources) gamma-Aminobutyric Acid-ergic Agonist Start: 01-30-2024 take 0.5 tablet by mouth three times daily baclofen (LIORESAL) 10 mg tablet Indications: Disorder of sacrum Take 0.5 tablets (5 mg total) by mouth 3 (three) times a day. 90 tablet 01/30/2024 Active benzonatate 100 mg oral capsule (4 sources) Non-narcotic Antitussive Start: 05-16-2024 End: 05-23-2024 take 1 capsule by mouth three times daily as needed for cough benzonatate (Tessalon Perles) 100 MG capsule Indications: Upper respiratory tract infection, unspecified type Take 1 capsule (100 mg) by mouth 3 (three) times a day as needed for cough for up to 7 days Do not crush or chew. 20 capsule 05/16/2024 05/23/2024 Active 24 hr buPROPion hydrochloride 150 mg extended release oral tablet (20 sources) Aminoketone Start: 07-17-2023 End: 07-16-2024 take 1 tablet by mouth every twenty-four hours in the morning buPROPion XL (Wellbutrin XL) 150 MG 24 hr tablet Indications: Tobacco abuse TAKE 1 TABLET BY MOUTH IN THE MORNING 90 tablet 05/23/2024 Active calcium carbonate 500 mg oral tablet (20 sources) take 1 tablet by mouth in the morning calcium carbonate (Os-Julio César) 1250 (500 Ca) MG tablet Take 1,250 mg by mouth in the morning. Active take 2.5 tablets by mouth in the morning calcium carbonate (OS-JULIO CÉSAR) 500 mg elemental (1,250 mg) tablet Take 2.5 tablets (1,250 mg total) by mouth in the morning. Active cholecalciferol 0.01 mg oral capsule (20 sources) Vitamin D Start: 07-19-2023 End: 07-18-2024 take 1 capsule by mouth in the morning cholecalciferol (Vitamin D-3) 10 MCG (400 UNIT) capsule Indications: Osteoporosis, unspecified osteoporosis type, unspecified pathological fracture presence (CMS/HCC) Take 1 capsule (10 mcg) by mouth in the morning. 30 capsule 11 07/19/2023 07/18/2024 Active Start: 02-14-2023 End: 07-17-2023 take 1 tablet by mouth in the morning cholecalciferol (Vitamin D-3) 20 MCG (800 UNIT) tablet Indications: Osteopenia, unspecified location Take 1 tablet (20 mcg) by mouth in the morning. 30 tablet 11 02/14/2023 07/17/2023 Discontinued (Therapy completed) Start: 02-14-2023 [...] (MORNING AND EVENING) WITH MEALS 60 tablet 01/28/2022 Active Start: 01-28-2022 End: 07-17-2023 take 1 tablet by mouth in the morning cholecalciferol (Vitamin D-3) 25 MCG (1000 UT) tablet Take 25 mcg by mouth in the morning. 0 01/28/2022 07/17/2023 Discontinued (Therapy completed) diclofenac potassium 50 mg oral tablet (4 sources) Nonsteroidal Anti-inflammatory Drug Start: 02-29-2024 End: 04-26-2024 take 1 tablet by mouth in the morning, then take 1 tablet by mouth at bedtime diclofenac (CATAFLAM) 50 mg tablet Take 1 tablet (50 mg total) by mouth in the morning and 1 tablet (50 mg total) before bedtime. 180 tablet 04/26/2024 Active [id number] 0.3 ml EPINEPHrine 1 mg/ml auto-injector (20 sources) alpha-Adrenergic Agonist, beta-Adrenergic Agonist, Catecholamine Start: 02-19-2016 EPIPEN 2-ELLIOT 0.3 mg/0.3 mL auto-injector 02/19/2016 Active EPINEPHrine (Epi Pen 2-Elliot) 0.3 MG/0.3ML injection syringe Inject as directed 1 (one) time. Active ergocalciferol 1.25 mg oral capsule (4 sources) Provitamin D2 Compound Start: 08-23-2021 take 1 capsule by mouth every week ergocalciferol (DRISDOL) 1,250 mcg (50,000 unit) capsule Indications: Vitamin D deficiency Take 1 capsule (50,000 Units total) by mouth once a week. For 6 weeks 6 capsule 08/23/2021 Active fexofenadine hydrochloride 180 mg oral tablet (6 sources) Histamine-1 Receptor Antagonist Start: 08-24-2022 End: 07-17-2023 take 1 tablet by mouth in the morning fexofenadine (BERNIE) 180 mg tablet Take 1 tablet (180 mg total) by mouth in the morning. 08/24/2022 Active FLUoxetine 10 mg oral capsule (20 sources) Serotonin Reuptake Inhibitor Start: 06-18-2024 take 1 capsule by mouth once daily FLUoxetine (PROzac) 10 MG capsule Indications: Major depressive disorder with single episode, in full remission (CMS/HCC) Take 1 capsule (10 mg) by mouth Daily 90 capsule 06/18/2024 Active Start: 01-24-2024 End: 06-18-2024 take 1 capsule by mouth once daily FLUoxetine (PROzac) 10 MG capsule Indications: Major depressive disorder with single episode, in full remission (CMS/HCC) Take 1 capsule by mouth once daily 90 capsule 05/23/2024 06/18/2024 Discontinued (Reorder) Start: 07-12-2021 End: 07-17-2023 take 1 capsule by mouth once daily FLUoxetine (PROzac) 20 mg capsule Take 1 capsule (20 mg total) by mouth nightly. 07/12/2021 Active take 1 capsule by mo ut in the morning FLUoxetine (PROzac) 10 MG capsule Take 10 mg by mouth in the morning. 0 Active fluticasone propionate 0.05 mg/actuat metered dose nasal spray (20 sources) Corticosteroid Start: 02-22-2022 take 1 spray(s) nasal route in the morning fluticasone (Flonase) 50 MCG/ACT nasal spray Administer 1 spray into each nostril in the morning. 02/22/2022 Active hydroCHLOROthiazide 12.5 mg oral tablet (17 sources) Thiazide Diuretic Start: 03-06-2024 End: 03-06-2025 take 1 tablet by mouth once daily hydroCHLOROthiazide (HYDRODiuril) 12.5 MG tablet Indications: Primary hypertension (CMS/HCC) Take 1 tablet by mouth once daily 30 tablet 3 05/02/2024 Active lidocaine 0.05 mg/mg medicated patch (1 source) Antiarrhythmic, Amide Local Anesthetic Start: 01-30-2024 apply 1 dose transdermal route once daily, then apply 1 dose transdermal route every twelve hours lidocaine (LIDODERM) 5 % Indications: Disorder of sacrum Place 1 patch on the skin daily. Remove & Discard patch within 12 hours or as directed by 30 patch 01/30/2024 Active magnesium oxide 400 mg oral tablet (3 sources) take 1 tablet by mouth in the morning magnesium oxide (MAGOX) 400 mg tablet Take 1 tablet (400 mg total) by mouth in the morning. Active melatonin 5 mg oral tablet (20 sources) take 2 tablets by mouth at bedtime melatonin 5 MG tablet Take 10 mg by mouth at bedtime. Active meloxicam 15 mg oral tablet (20 sources) Nonsteroidal Anti-inflammatory Drug Start: 01-26-2024 End: 04-16-2024 take 1 tablet by mouth once daily meloxicam (Mobic) 15 MG tablet Indications: Primary osteoarthritis of left hip , Primary osteoarthritis of right knee , Spinal stenosis of lumbar region with neurogenic claudication Take 1 tablet by mouth once daily 30 tablet 04/16/2024 Active Start: 08-25-2022 take 1 tablet by brian th in the morning meloxicam (MOBIC) 15 mg tablet Take 1 tablet (15 mg total) by mouth in the morning. 0 08/25/2022 Active methylPREDNISolone (1 source) Corticosteroid Start: 01-30-2024 methylPREDNISolone (MEDROL, ELLIOT,) 4 mg tablet Indications: Disorder of sacrum follow package directions 21 tablet 01/30/2024 Active 24 hr nicotine 0.875 mg/hr transdermal system (1 source) Cholinergic Nicotinic Agonist Start: 03-15-2023 apply 1 dose transdermal route every twenty-four hours nicotine (NICODERM CQ) 21 mg/24 hr APPLY 1 PATCH TOPICALLY EVERY 24 HOURS 0 03/15/2023 Active phentermine hydrochloride 37.5 mg oral tablet (8 sources) Sympathomimetic Amine Anorectic Start: 01-24-2024 End: 03-06-2024 take 1 tablet by mouth before mealtime phentermine (Adipex-P) 37.5 MG tablet Indications: BMI 35.0-35.9,adult Take 1 tablet (37.5 mg) by mouth in the morning. Take before meals. 30 tablet 01/24/2024 Active predniSONE 20 mg oral tablet (2 sources) Start: 05-16-2024 End: 05-21-2024 take 1 tablet by mouth once daily predniSONE (Deltasone) 20 MG tablet Indications: Upper respiratory tract infection, unspecified type Take 1 tablet (20 mg) by mouth Daily for 5 days 5 tablet 05/16/2024 05/21/2024 Active traZODone hydrochloride 50 mg oral tablet (20 sources) Serotonin Reuptake Inhibitor Start: 09-28-2023 End: 05-16-2024 take 1 tablet by mouth once daily traZODone (Desyrel) 50 MG tablet Indications: Major depressive disorder with single episode, in full remission (CMS/HCC) Take 1 tablet (50 mg) by mouth Daily 90 tablet 1 05/16/2024 Active Start: 09-28-2023 End: 07-17-2023 take 1 tablet by mouth once daily traZODone (Desyrel) 50 MG tablet Indications: Major depressive disorder with single episode, in full remission (CMS/HCC) Take 1 tablet by mouth once daily 90 tablet 1 09/28/2023 Active Start: 09-28-2023 take 1 tablet by brian once daily traZODone (Desyrel) 50 MG tablet Indications: Major depressive disorder with single episode, in full remission (CMS/HCC) Take 1 tablet by mouth once daily 90 tablet 1 09/28/2023 Active Problems Active Problems Problem Classification Problem Date Documented Date Episodic/Chronic Disorders of lipid metabolism (20 sources) Hyperlipidemia, unspecified; Translations: [Hyperlipidemia] Onset: 03-19-2018 Chronic Essential hypertension (20 sources) Essential hypertension; Translations: [Essential (primary) hypertension] Onset: 07-17-2023 07-17-2023 Chronic Mood disorders (20 sources) Single episode of major depression in full remission; Translations: [Major depressive disorder, single episode, in full remission] Onset: 07-17-2023 07-17-2023 Chronic Osteoarthritis (20 sources) Osteoarthritis of left hip joint; Translations: [Unilateral primary osteoarthritis, left hip] Onset: 07-19-2021 07-17-2023 Chronic Osteoporosis (20 sources) Osteoporosis; Translations: [Age-related osteoporosis without current pathological fracture] Onset: 03-19-2018 07-17-2023 Chronic Other connective tissue disease (20 sources) History of total knee arthroplasty; Translations: [Presence of right artificial knee joint] Onset: 10-27-2021 07-17-2023 Chronic Other nutritional; endocrine; and metabolic disorders (19 sources) Body mass index 30+ - obesity; Translations: [Body mass index (BMI) 35.0-35.9, adult] Onset: 01-24-2024 01-24-2024 Chronic Other upper respiratory disease (19 sources) Seasonal allergy; Translations: [Other seasonal allergic rhinitis] 01-24-2024 Chronic Residual codes; unclassified (4 sources) Obstructive sleep apnea syndrome; Translations: [Obstructive sleep apnea (adult) (pediatric)] 07-17-2023 Chronic Residual codes; unclassified (20 sources) Hypersomnia with sleep apnea; Translations: [Hypersomnia, unspecified] Onset: 07-17-2023 07-17-2023 Chronic Residual codes; unclassified (20 sources) Sleep apnea; Translations: [Sleep apnea, unspecified] Onset: 03-19-2018 07-17-2023 Chronic Spondylosis; intervertebral disc disorders; other back problems (2 sources) Other intervertebral disc degeneration, lumbar region; Translations: [Spondylosis without myelopathy or radiculopathy, lumbosacral region] Onset: 05-29-2022 Chronic Spondylosis; intervertebral disc disorders; other back problems (20 sources) Spinal stenosis of lumbar region; Translations: [Spinal stenosis, lumbar region with neurogenic claudication] Onset: 09-08-2022 07-17-2023 Episodic Thyroid disorders (1 source) Congenital hypothyroidism with diffuse goiter; Translations: [CONGEN HYPOTHYROIDISM W/DIF GOITER] Onset: 11-18-2021 Chronic Unclassified (3 sources) LOW BACK PAIN, UNSPECIFIED; Translations: [LOW BACK PAIN, UNSPECIFIED] Onset: 05-29-2022 Past or Other Problems Problem Classification Problem Date Documented Da te Episodic/Chronic Abdominal pain (4 sources) Right flank pain; Translations: [Unspecified abdominal pain] Onset: 03-19-2018 03-19-2018 Episodic Diabetes mellitus without complication (1 source) Other abnormal glucose; Translations: [OTHER ABNORMAL GLUCOSE] Onset: 11-18-2021 Episodic Genitourinary symptoms and ill-defined conditions (4 sources) Blood in urine; Translations: [Hematuria, unspecified] Onset: 03-19-2018 03-19-2018 Episodic Other bone disease and musculoskeletal deformities (1 source) Osteopenia; Translations: [Other specified disorders of bone density and structure, unspecified site] 02-19-2024 Episodic Other lower respiratory disease (19 sources) Respiratory tract infection; Translations: [Other specified respiratory disorders] Onset: 10-04-2023 10-04-2023 Episodic Other upper respiratory infections (20 sources) Acute upper respiratory infection; Translations: [Acute upper respiratory infection, unspecified] Onset: 07-17-2023 07-17-2023 Episodic Otitis media and related conditions (19 sources) Acute suppurative otitis media without spontaneous rupture of ear drum; Translations: [Acute suppurative otitis media without spontaneous rupture of ear drum, bilateral] Onset: 10-04-2023 10-04-2023 Episodic Residual codes; unclassified (20 sources) Tobacco user; Translations: [Tobacco use] Onset: 07-17-2023 07-17-2023 Episodic Unclassified (1 source) LOW BACK PAIN, [...] RENE BYERS Date: 2022-05-25 23:28 Normal [facility] CBC AUTO DIFFon 11-12-2021 BASO # 0.0 103/ul Normal 0.0-0.1 [facility] Comment on above: Performed By: #### C BC #### [facility] [address] [address] [address] Mary Solano Basophils/100 WBC (Bld) 0.6 % Normal 0.2-2.0 [facility] Comment on above: Performed By: #### C BC #### [facility] [facility] [address] [address] [address] Mary Solano EO # 0.1 103/ul Normal 0.0-0.7 [facility] Comment on above: Performed By: #### C BC #### [facility] [address] [place] [address] Dr. Mary Solano Eosinophils/100 WBC (Bld) 1.9 % Normal 0.9-7.0 [facility] Comment on above: Performed By: #### C BC #### [facility] [address] [place] [address] Dr. Mary Solano Erythrocyte distribution width (RBC) [Ratio] 14.0 % Normal 11.0-15.0 [facility] Comment on above: Performed By: #### C BC #### [facility] [address] [place] [address] Dr. Mary Solano Hematocrit (Bld) [Volume fraction] 44.4 % Normal 36.0-48.0 [facility] Comment on above: Performed By: #### C BC #### [facility] [address] [place] [address] Dr. Mary Solano Hemoglobin (Bld) [Mass/Vol] 14.3 g/dL Normal 12.0-16.0 [facility] Comment on above: Performed By: #### C BC #### [facility] [address] [place] [address] Dr. Mary Solano IG # 0.02 10e3/ul Normal 0.00-0.03 [facility] Comment on above: Performed By: #### C BC #### [facility] [address] [place] [address] Dr. Mary Solano IG % 0.3 % Normal 0.0-0.5 [facility] Comment on above: Performed By: #### C BC #### [facility] [address] [place] [address] Dr. Mary Solano LYMPH # 2.1 103/ul Normal 1.2-3.8 [facility] Comment on above: Performed By: #### C BC #### [facility] [address] [place] [address] Dr. Mary Solano Lymphocytes/100 WBC (Bld) 30.1 % Normal 20.5-60.0 [facility] Comment on above: Performed By: #### C BC #### [facility] [address] [place] [address] Dr. Mary Solano MANUAL DIFF REQ NO Normal [facility] Comment on above: Performed By: #### C BC #### [facility] [address] [place] [address] Dr. Mary Solano MCH (RBC) [Entitic mass] 29.3 pg Normal 26.7-34.0 [facility] Comment on above: Performed By: #### C BC #### [facility] [address] [place] [address] Dr. Mary Solano MCHC (RBC) [Mass/Vol] 32.2 g/dL Normal 29.9-35.2 [facility] Comment on above: Performed By: #### C BC #### [facility] [address] [place] [address] Dr. aMry Solano MCV (RBC) [Entitic vol] 91.0 fL Normal 81.0-99.0 [facility] Comment on above: Performed By: #### C BC #### [facility] [address] [place] [address] Dr. Mary Solano MONO # 0.6 103/ul Normal 0.3-0.8 [facility] Comment on above: Performed By: #### C BC #### [facility] [address] [place] [address] Dr. Mary Solano Monocytes/100 WBC (Bld) 8.9 % Normal 1.7-12.0 [facility] Comment on above: Performed By: #### C BC #### [facility] [address] [place] [address] Dr. Mary Solano NEUT # 4.0 103/ul Normal 1.4-6.5 [facility] Comment on above: Performed By: #### C BC #### [facility] [address] [place] [address] Dr. Mary Solano Neutrophils/100 WBC (Bld) 58.2 % Normal 43.0-75.0 [facility] Comment on above: Performed By: #### C BC #### [facility] [address] [place] [address] Dr. Mary Solano Platelet mean volume (Bld) [Entitic vol] 8.8 fL Critically low 9.5-13.5 [facility] Comment on above: Performed By: #### C BC #### [facility] [address] [place] [address] Dr. Mary Solano PLT 372 103/ul Normal 150-450 [facility] Comment on above: Performed By: #### C BC #### [facility] [address] [place] [address] Dr. Mary Solano RBC 4.88 106/ul Normal 4.20-5.40 [facility] Comment on above: Performed By: #### C BC #### [facility] [address] [place] [address] Dr. Mary Solano WBC 6.8 103/ul Normal 4.0-11.0 [facility] Comment on above: Performed By: #### C BC #### [facility] [address] [place] [address] Dr. Mary Solano GLYCOHEMOGLOBIN A1Con 2021 ADA RECOMMENDATION SEE BELOW Normal [facility] Comment on above: Result Comment: ADA RECOMMENDED LIMIT 4.0 - 6.0 ADA THERAPEUTIC TARGET < 7.0 ACTION SUGGESTED > 7.0 Performed By: #### A 1C #### [facility] [address] [address] [address] Mary Solano Glucose [Mass/Vol] 117 mg/dL Normal [facility] Comment on above: Performed By: #### A 1C #### [facility] [address] [address] [address] Mary Solano HbA1c (Bld) [Mass fraction] 5.7 % Normal 4.5-6.2 [facility] Comment on above: Performed By: #### A 1C #### [facility] [address] [place] [address] Dr. Mary Solano LIPID PROFILEon 11-12-2021 CHOL-HDL RATIO NORM SEE BELOW Normal [facility] Comment on above: Result Comment: 3.3 - 4.4 LOW RISK 4.4 - 7.1 AVERAGE RISK 7.1 - 11.0 MODERATE RISK >11.0 HIGH RISK Performed By: #### C MP, LIPID #### [facility] [address] [place] [address] Dr. Mary Solano Cholesterol [Mass/Vol] 197 mg/dL Normal <=200 [facility] Comment on above: Performed By: #### C MP, LIPID #### [facility] [address] [place] [address] Dr. Mary Solano Cholesterol in HDL [Mass/Vol] 49 mg/dL Normal 40-60 [facility] Comment on above: Performed By: #### C MP, LIPID #### [facility] [address] [place] [address] Dr. Mary Solano Cholesterol in LDL [Mass/Vol] 124.4 mg/dL Normal [facility] Comment on above: Performed By: #### C MP, LIPID #### [facility] [id number] Mary Solano Cholesterol.total/Cho lesterol in HDL [Mass ratio] 4.0 {ratio} Normal [facility] Comment on above: Performed By: #### C MP, LIPID #### [facility] [address] [address] [address] Mary Solano HDL NORMAL > or = 60 mg/dl - LO W CARDIOVASCULAR RISK <40 mg/dl - HIGH CARDIOVASCULAR RISK Normal [facility] Comment on above: Performed By: #### C MP, LIPID #### [facility] [address] [address] [address] Mary Solano LDL CALC NORMAL SEE BELOW Normal [facility] Comment on above: Result Comment: <100 mg/dl OPTIMAL 100 - 129 mg/dl NEAR OR ABOVE OPTIMAL 130 - 159 mg/dl BORDERLINE HIGH 160 - 189 mg/dl HIGH >190 mg/dl VERY HIGH Performed By: #### C MP, LIPID #### [facility] [address] [address] [address] Mary Solano Triglyceride [Mass/Vol] 118 mg/dL Normal <=150 [facility] Comment on above: Performed By: #### C MP, LIPID #### [facility] [address] [place] [address] Dr. Mary Solano VLDL CALC 23.6 mg/dL Normal [facility] Comment on above: Performed By: #### C MP, LIPID #### [facility] [address] [place] [address] Dr. Mary Solano PROF 14(COMP METB)on 022 Albumin [Mass/Vol] 3.8 g/dL Normal 3.4-5.[address] [facility] Comment on above: Performed By: #### C MP, LIPID #### [facility] [address] [place] [address] Dr. Mary Solano Albumin/Globulin [Mass ratio] 1.1 {ratio} Normal [facility] Comment on above: Performed By: #### C MP, LIPID #### [facility] [address] [place] [address] Dr. Mary Solano ALP [Catalytic activity/Vol] 136 U/L Critically high 46-116 [facility] Comment on above: Performed By: #### C MP, LIPID #### [facility] [address] [place] [address] Dr. Mary Solano ALT [Catalytic activity/Vol] 20 U/L Normal 14-59 [facility] Comment on above: Performed By: #### C MP, LIPID #### [facility] [address] [address] [address] Mary Solano Anion gap [Moles/Vol] 12.1 mmol/L Normal [facility] Comment on above: Performed By: #### C MP, LIPID #### [facility] [address] [address] [address] Mary Solano AST [Catalytic activity/Vol] 14 U/L Critically low 15-37 [facility] Comment on above: Performed By: #### C MP, LIPID #### [facility] [address] [address] [address] Mary Solano Bilirubin [Mass/Vol] 0.3 mg/dL Normal 0.2-1.0 [facility] Comment on above: Performed By: #### C MP, LIPID #### [facility] [address] [address] [address] Mary Solano Calcium [Mass/Vol] 9.3 mg/dL Normal 8.5-10.[address] [facility] Comment on above: Performed By: #### C MP, LIPID #### [facility] [address] [address] [address] Mary Solano Chloride [Moles/Vol] 102 mmol/L Normal 98-107 [facility] Comment on above: Performed By: #### C MP, LIPID #### [facility] [address] [place] [address] Dr. Mary Solano CO2 [Moles/Vol] 29.0 mmol/L Normal 21.0-32.0 [facility] Comment on above: Performed By: #### C MP, LIPID #### [facility] [address] [address] [address] Mary Solano Creatinine [Mass/Vol] 0.64 mg/dL Normal 0.55-1.02 [facility] Comment on above: Performed By: #### C MP, LIPID #### [facility] [address] [address] [address] Mary Solano EGFR-AF [facility]CI[facility] >60 Normal >=60 [facility] Comment on above: Performed By: #### C MP, LIPID #### [facility] [address] [address] [address] Mary Solano EGFR-NON AF [facility] >60 Normal >=60 [facility] Comment on above: Performed By: #### C MP, LIPID #### [facility] [address] [address] [address] Mary Solano Globulin (S) [Mass/Vol] 3.4 g/dL Normal [facility] Comment on above: Performed By: #### C MP, LIPID #### [facility] [address] [address] [address] Mary Solano Glucose [Mass/Vol] 94 mg/dL Normal 74-106 [facility] Comment on above: Performed By: #### C MP, LIPID #### [facility] [address] [place] [address] Dr. Mary Solano Potassium [Moles/Vol] 4.1 mmol/L Normal 3.5-5.1 [facility] Comment on above: Performed By: #### C MP, LIPID #### [facility] [address] [place] [address] Dr. Mary Solano Protein [Mass/Vol] 7.2 g/dL Normal 6.4-8.2 [facility] Comment on above: Performed By: #### C MP, LIPID #### [facility] [address] [place] [address] Dr. Mary Solano Sodium [Moles/Vol] 139 mmol/L Normal 136-145 [facility] Comment on above: Performed By: #### C MP, LIPID #### [facility] [address] [place] [address] Dr. Mary Solano Urea nitrogen [Mass/Vol] 14.0 mg/dL Normal 7.0-18.0 [facility] Comment on above: Performed By: #### C MP, LIPID #### [facility] [address] [place] [address] Dr. Mary Solano Urea nitrogen/Creatinine [Mass ratio] 21.9 mg/mg Normal [facility] Comment on above: Performed By: #### C MP, LIPID #### [facility] [address] [place] [address] Dr. Mary Solano Reminderson 06-07-2019 Reminders - From: Harry JACKSON, Tati Mooney To: EU - Clinical; Sent: 05/22/2019 09:03:06 EST Show up: 06/03/2019 07:00:00 EST Subject: Ambulatory Reminder Due Date/Time: 06/05/2019 07:00:00 EST Reminder/Recall FISH/Cytology done 05/22/19 due to gross hematuria done, results negative, in patients chart Normal [facility] Vital Signs Date Time Vital Sign Value Performing Clinician Facility 05-23-2024 10:11-0500 Body height 162.6 cm Yadiel MUNGUIA Work Phone: [facility] [employer] [facility] 05-23-2024 10:11-0500 Body mass index (BMI) [Ratio] 34.33 kg/m2 [facility] 05-23-2024 10:11-0500 Body weight 90.72 kg [facility] 05-23-2024 10:11-0500 Diastolic blood pressure 70 mm[Hg] [facility] 05-23-2024 10:11-0500 Heart rate 64 /min [facility] 05-23-2024 10:11-0500 Respiratory rate 18 /min [facility] 05-23-2024 10:11-0500 SaO2% (BldA) [Mass fraction] 98 % Yadiel MUNGUIA Work Phone: [employer] 05-23-2024 10:11-0500 Systolic blood pressure 134 mm[Hg] [facility] 05-16-2024 09:15-0500 Body mass index (BMI) [Ratio] 33.3 kg/m2 Rema Martinezpatrick [employer] Work Phone: [facility] 05-16-2024 09:15-0500 Body temperature 97.39 [degF] Rema Altamiranotrick [employer] Work Phone: [facility] 05-16-2024 09:15-0500 Body weight 88 kg Rema Altamiranotrick [employer] Work Phone: [facility] 05-16-2024 09:15-0500 Diastolic blood pressure 76 mm[Hg] Rema Martinezpatrick [employer] Work Phone: [facility] 05-16-2024 09:15-0500 Heart rate 60 /min Rema Altamiranotrick [employer] Work Phone: [facility] 05-16-2024 09:15-0500 SaO2% (BldA) [Mass fraction] 100 % Rema Altamiranotrick [employer] Work Phone: [facility] 05-16-2024 09:15-0500 Systolic blood pressure 132 mm[Hg] Rema Altamiranotrick [employer] Work Phone: [facility] 04-09-2024 09:55-0400 Body height 162.6 cm Yadiel MUNGUIA Work Phone: [facility] 04-09-2024 09:55-0400 Body mass index (BMI) [Ratio] 34.5 kg/m2 Yadiel Scott PA Work Phone: [facility] 04-09-2024 09:55-0400 Body weight 91.17 kg Yadiel Scott PA Work Phone: [facility] 04-09-2024 09:55-0400 Diastolic blood pressure 73 mm[Hg] Yadiel Scott PA Work Phone: [facility] 04-09-2024 09:55-0400 Heart rate 70 /min Yadiel Scott PA Work Phone: [facility] 04-09-2024 09:55-0400 Respiratory rate 18 /min Yadiel MUNGUIA Work Phone: [facility] 04-09-2024 09:55-0400 SaO2% (BldA) [Mass fraction] 98 % Yadiel MUNGUIA Work Phone: [facility] 04-09-2024 09:55-0400 Systolic blood pressure 130 mm[Hg] Yadiel MUNGUIA Work Phone: [facility] 02-22-2024 10:35-0400 Body height 162.6 cm Rema Tong [employer] Work Phone: [facility] 02-22-2024 10:35-0400 Body mass index (BMI) [Ratio] 34.33 kg/m2 Rema Tong [employer] Work Phone: [facility] 02-22-2024 10:35-0400 Body temperature 97.39 [degF] Rema Tong [employer] Work Phone: [facility] 02-22-2024 10:35-0400 Body weight 90.72 kg Rema Tong [employer] Work Phone: [facility] 02-22-2024 10:35-0400 Diastolic blood pressure 70 mm[Hg] Rema Tong [employer] Work Phone: [facility] 02-22-2024 10:35-0400 Heart rate 74 /min Rema Tong [employer] Work Phone: [facility] Comment on above: 94% O2 02-22-2024 10:35-0400 Systolic blood pressure 118 mm[Hg] Rema Tong [employer] Work Phone: [facility] 08-24-2023 09:25-0400 Body height 162.6 cm Yadiel MUNGUIA Work Phone: [facility] 08-24-2023 09:25-0400 Body mass index (BMI) [Ratio] 33.13 kg/m2 Yadiel Ennisvito PA [facility] 08-24-2023 09:25-0400 Body weight 87.54 kg Yadiel Ennisvito PA Work Phone: [facility] [employer] [facility] 08-24-2023 09:25-0400 Diastolic blood pressure 75 mm[Hg] Yadiel Ennisvito PA Work Phone: [facility] [employer] [facility] 08-24-2023 09:25-0400 Heart rate 58 /min Yadiel Ennisvito PA Work Phone: [facility] [employer] [facility] 08-24-2023 09:25-0400 Respiratory rate 14 /min Yadiel Ennisvito PA Work Phone: [facility] [employer] [facility] 08-24-2023 09:25-0400 SaO2% (BldA) [Mass fraction] 98 % Yadiel Ennisvito PA Work Phone: [facility] [employer] [facility] 08-24-2023 09:25-0400 Systolic blood pressure 137 mm[Hg] Yadiel Ennisvito PA Work Phone: [facility] [employer] [facility] 07-17-2023 09:00-0500 Body height 162.6 cm Shaikh Jovani ASKEW Work Phone: [facility] 07-17-2023 09:00-0500 Body mass index (BMI) [Ratio] 33.23 kg/m2 Shaikh Jovani ASKEW Work Phone: [facility] 07-17-2023 09:00-0500 Body temperature 98.1 [degF] Shaikh Jovani ASKEW Work Phone: [facility] 07-17-2023 09:00-0500 Body weight 87.82 kg Shaikh Jovani ASKEW Work Phone: [facility] 07-17-2023 09:00-0500 Diastolic blood pressure 78 mm[Hg] Shaikh Jovani ASKEW Work Phone: [facility] 07-17-2023 09:00-0500 Heart rate 66 /min Shaikh Jovani ASKEW Work Phone: [facility] 07-17-2023 09:00-0500 Respiratory rate 17 /min Shaikh Jovani ASKEW Work Phone: [facility] 07-17-2023 09:00-0500 SaO2% (BldA) [Mass fraction] 96 % Shaikh Jovani ASKEW Work Phone: [facility] 07-17-2023 09:00-0500 Systolic blood pressure 130 mm[Hg] Shaikh Jovani ASKEW Work Phone: [facility] Healthcare Encounters Encounter Date Encounter Type Care Provider Facility Start: 06-21-2024 End: 06-21-2024 ambulatory JOSHUA [facility] Start: 06-18-2024 End: 06-18-2024 Refill Rema Tong [employer] Work Phone: [facility] Comment on above: Major depressive dis order with single episode, in full remission ([facility]) Start: 05-23-2024 End: 05-23-2024 Refill Rema Almarazk [employer] Work Phone: [facility] Comment on above: Tobacco abuse Tobacco abuse; Major depressive disorder with single episode, in full remission ([facility]) Start: 05-23-2024 End: 05-23-2024 Office outpatient visit 25 minutes Yadiel Scott PA Work Phone: [facility] Comment on above: Primary osteoarthrit is of left hip (Primary Dx) Start: 05-23-2024 End: 05-23-2024 ambulatory YADIEL SCOTT [facility] Start: 05-16-2024 End: 05-16-2024 Bamboo flowsheet Rema Almarazk [employer] Work Phone: [facility] Start: 05-16-2024 End: 05-16-2024 Bamboo flowsheet Rema Tong [employer] Work Phone: [facility] Start: 05-16-2024 End: 05-16-2024 Office outpatient visit 10 minutes Rema Tong [employer] Work Phone: [facility] Comment on above: Upper respiratory tr act infection, unspecified type (Primary Dx); Major depressive disorder with single episode, in full remission (CMS/HCC); URTI (acute upper respiratory infection) Start: 05-02-2024 End: 05-02-2024 Refill Rema Tong [employer] Work Phone: [facility] Comment on above: Primary hypertension (CMS/HCC) Start: 04-26-2024 End: 04-26-2024 Refill Linda Calderon RN [facility] Start: 04-16-2024 End: 04-16-2024 Refill Rema Tong [employer] Work Phone: [facility] Comment on above: Primary osteoarthrit is of left hip; Primary osteoarthritis of right knee; Spinal stenosis of lumbar region with neurogenic claudication Start: 04-09-2024 End: 04-09-2024 Office outpatient visit 15 minutes Yadiel MUNGUIA Work Phone: [facility] Comment on above: Disorder of sacrum ( Primary Dx) Start: 04-09-2024 End: 04-09-2024 Refill Diana Becker MA [facility] Comment on above: Major depressive dis order with single episode, in full remission (CMS/HCC) Start: 04-04-2024 End: 04-04-2024 Refill Rema Tong [employer] Work Phone: [facility] Comment on above: Primary hypertension (CMS/HCC) Start: 03-22-2024 End: 03-22-2024 ambulatory JOSHUA [facility] Start: 03-15-2024 End: 03-18-2024 Refill Rema Tong [employer] Work Phone: [facility] Comment on above: Primary osteoarthrit is of left hip; Primary osteoarthritis of right knee; Spinal stenosis of lumbar region with neurogenic claudication Start: 03-14-2024 End: 03-14-2024 Orders Only Rema Tong [employer] Work Phone: [facility] Comment on above: Obstructive sleep ap emily syndrome (Primary Dx) Start: 03-06-2024 End: 03-06-2024 Orders Only Rema Tong [employer] Work Phone: [facility] Comment on above: Primary hypertension (CMS/HCC) (Primary Dx) Start: 02-29-2024 End: 02-29-2024 ambulatory YADIEL S [facility] Start: 02-22-2024 End: 02-22-2024 Office outpatient visit 10 minutes Rema Tong [employer] Work Phone: [facility] Comment on above: Hypersomnia with sle ep apnea (Primary Dx); Obstructive sleep apnea syndrome Start: 02-22-2024 End: 02-22-2024 ambulatory REMA TONG Not Available Start: 02-20-2024 End: 02-20-2024 Refill Rema Tong [employer] Work Phone: [facility] Comment on above: Tobacco abuse Start: 02-19-2024 End: 02-19-2024 Refill Rema Almarazk [employer] Work Phone: [facility] Comment on above: Osteopenia, unspecif ied location Start: 02-09-2024 End: 02-09-2024 ambulatory [facility] Start: 01-30-2024 End: 01-30-2024 ambulatory VÍCTOR [facility] Start: 01-24-2024 End: 01-24-2024 ambulatory REMA TONG Not Available Start: 01-12-2024 End: 01-12-2024 ambulatory [facility] Start: 12-28-2023 End: 12-28-2023 ambulatory YADIEL SCOTT [facility] Start: 11-30-2023 End: 11-30-2023 ambulatory LUIS RUBALCAVA Not Available Start: 10-04-2023 End: 10-04-2023 ambulatory SHAIKH JOVANI Not Available Start: 10-03-2023 End: 10-03-2023 ambulatory [facility] Start: 09-16-2023 End: 09-16-2023 ambulatory MELLY RADER [facility] Start: 09-15-2023 End: 09-15-2023 ambulatory JOSHUA DICKENS [facility] Start: 08-24-2023 End: 08-24-2023 Office outpatient visit 15 minutes Yadiel Scott NILDA Work Phone: [facility] Comment on above: Disorder of sacrum ( Primary Dx) Start: 08-24-2023 End: 08-24-2023 ambulatory [facility] Start: 07-17-2023 Isaiah Hahn MD Work [...] Date Procedure Procedure Detail Performing Clinician Start: 01-29-2024 Mammography Rema sandoval NP Work Phone: Start: 11-30-2023 Microscopic observat ion [Identifier] in Cervix by Cyto stain Rema Tong [employer] Work Phone: Start: 02-12-2023 Mammography Shaikh Jim franco MD Work Phone: Start: 11-18-2021 Mammography Shaikh Jim franco MD Work Phone: Plan of Treatment Date Care Activity Detail Author Start: 12-07-2027 Screening for malign ant neoplasm of cervix [facility] Start: 11-29-2026 Screening for malign ant neoplasm of cervix Pap Smear [facility] Start: 05-23-2025 Adult BMI Screening Adult BMI Screen ing [facility] Start: 05-23-2025 Tobacco Screening Tobacco Screening [facility] Start: 04-26-2025 Tobacco Screening Tobacco Screening [facility] Start: 04-09-2025 Adult BMI Screening Adult BMI Screen ing [facility] Start: 04-09-2025 Tobacco Screening Tobacco Screening [facility] Start: 03-09-2025 Screening for malign ant neoplasm of colon [facility] Start: 01-28-2025 Screening for malign ant neoplasm of breast Mammogram [facility] Start: 12-03-2024 End: 12-03-2024 Patient encounter procedure 12/03/2024 10:00 AM EDT Office Visit [facility] [address] [place] [phone] Luis Rubalcava, DO [address] [place] [address] [facility] Start: 08-23-2024 Adult BMI Screening Adult BMI Screen ing [facility] Start: 08-23-2024 Tobacco Screening Tobacco Screening [facility] Start: 08-19-2024 End: 08-19-2024 Patient encounter procedure 08/19/2024 10:30 AM EDT Office Visit [facility] [address] [place] [phone] Rema Tong, MARY [address] [place] [phone] [facility] Start: 07-09-2024 End: 07-09-2024 Patient encounter procedure 07/09/2024 12:45 PM EST Office Visit [facility] [address] [place] [phone] Yadiel Scott PA [address] [place], [place] [phone] [facility] Start: 06-21-2024 End: 06-21-2024 Admission to same day surgery center 06/21/2024 7:22 AM EST - 06/21/2024 7:30 AM EST Surgery [facility] [address] [place] [phone] Joshua Dickens MD [address] [place], [place] [phone] INJECTION BURSA LARGE JOINT: left hip [ (CPT )] [facility] Comment on above: INJECTION BURSA LARG E JOINT: left hip [ (CPT )] Start: 06-21-2024 End: 06-21-2024 Arthrocentesis aspir&/inj major jt/bursa w/o us INJECTION BURSA LARGE JOINT Primary osteoarthritis of left hip 06/21/2024 7:22 AM EST [facility] Start: 06-21-2024 Subsequent hospital visit by physician 06/21/2024 7:22 AM EST Hospital Encounter [facility] [address] [place] [phone] Joshua Dickens MD [address] [place] [address] [facility] Start: 06-13-2024 Influenza vaccination Influenza Vacc ine (#1) [facility] Comment on above: Postponed from 02/10 (Patient Ill Today) Start: 05-23-2024 End: 05-23-2024 Patient encounter procedure 05/23/2024 9:45 AM EST Office Visit [facility] [address] [place] [phone] Yadiel Scott PA [address] [facility] [place], [place] [phone] [facility] Start: 05-16-2024 End: 05-16-2024 Patient encounter procedure [facility] Comment on above: Arrived Start: 04-26-2024 End: 04-26-2024 Admission to same day surgery center 04/26/2024 2:52 PM EST - 04/26/2024 2:59 PM EST Surgery [facility] [address] [place] [phone] Joshua Dickens MD [address] [place], [place] [id number] INJECTION BLOCK SACROILIAC JOINT [89182 (CPT )] [facility] Comment on above: INJECTION BLOCK SACR OILIAC JOINT [23523 (CPT )] Start: 04-26-2024 End: 04-26-2024 Inject si joint arthrgrphy&/anes/steroid w/aileen INJECTION BLOCK SACROILIAC JOINT Disorder of sacrum 04/26/2024 2:52 PM EST [facility] Start: 04-26-2024 Subsequent hospital visit by physician 04/26/2024 2:52 PM EST Hospital Encounter [facility] [address] [place] [phone] Joshua Dickens MD [address] [place], [place] [phone] [facility] Start: 04-24-2024 End: 04-24-2024 Patient encounter procedure 04/24/2024 10:00 AM EST Office Visit [facility] [address] [place] [phone] Rema Tong NP [address] [place] [address] [facility] Start: 04-05-2024 End: 03-06-2025 Comprehensive metabolic 2000 panel - Serum or Plasma Comprehensive metabolic panel Lab Routine Primary hypertension (CMS/HCC) Expected: 04/05/2024 (Approximate), Expires: 03/06/2025 [facility] Work Phone: Comment on above: Expected: 04/05/2024 (Approximate), Expires: 03/06/2025 Start: 02-22-2024 End: 02-22-2024 Patient encounter procedure 02/22/2024 10:30 AM EDT Office Visit [facility] [address] [place] [address] Rema Tong NP [address] [place] [address] [facility] Start: 02-13-2024 Screening for malign ant neoplasm of breast Mammogram [facility] Start: 02-11-2024 COVID-19 Vaccine ( season) COVID-19 Vaccine ( season) [facility] Start: 02-11-2024 Influenza vaccination N [facility] Start: 01-13-2024 Tobacco Counseling Tobacco Counselin g [facility] Start: 11-30-2023 End: 11-30-2023 Patient encounter procedure 11/30/2023 9:00 AM EDT Office Visit [facility] [address] [place] [address] Luis Rubalcava DO [address] [place] [address] [facility] Start: 10-03-2023 End: 10-03-2023 Patient encounter procedure 10/03/2023 9:45 AM EDT Office Visit [facility] [address] [place] [address] Yadiel Scott PA [address] [place] [address] [facility] Start: 09-15-2023 End: 09-15-2023 Admission to same day surgery center 09/15/2023 7:26 AM EDT - 09/15/2023 7:32 AM EDT Surgery [facility] [address] [facility] [phone] Joshua Dickens MD [address] [facility] [place] [address] INJECTION BLOCK SACROILIAC JOINT [69307 (CPT )] [facility] Comment on above: INJECTION BLOCK SACR OILIAC JOINT [02674 (CPT )] Start: 09-15-2023 End: 09-15-2023 Inject si joint arthrgrphy&/anes/steroid w/aileen INJECTION BLOCK SACROILIAC JOINT Disorder of sacrum 09/15/2023 7:26 AM EDT [facility] Start: 09-15-2023 Subsequent hospital visit by physician 09/15/2023 7:26 AM EDT Hospital Encounter [facility] [address] [facility] [place] [phone] Joshua Dickens MD [address] [place] [address] [facility] Start: 07-17-2023 End: 07-17-2023 Patient encounter procedure 07/17/2023 9:15 AM EST Office Visit [facility] [address] [place] [phone] Shaikh Hahn MD [address] [place] [address] Arrived [facility] Comment on above: Arrived Start: 02-10-2023 COVID-19 Vaccine ( season) COVID-19 Vaccine ( season) [facility] Start: 12-05-2022 DTaP,Tdap and Td Vaccines (2 - Tdap) DTaP,Tdap and Td Vaccines (2 - Tdap) [facility] Start: 11-18-2022 Screening for malign ant neoplasm of breast Mammogram [facility] Start: 1982 Screening for malign ant neoplasm of cervix Pap Smear [facility] Start: 1979 Adult BMI Follow Up Plan Adult BMI F ollow Up Plan [facility] Start: 1973 Depression Screening Depression Scre ening [facility] Start: 1961 Screening for malign ant neoplasm of colon [facility] Immunizations Immunization Date Immunization Notes Care Provider Fa cility 04-24-2023 zoster vaccine recombinant Shaikh Jovani ASKEW Work Phone: [facility] 03-15-2023 Pneumococcal Conjuga te PCV 20 Shaikh Jovani ASKEW Work Phone: [facility] 03-15-2023 Seasonal, quadrivale nt, recombinant, injectable influenza vaccine, preservative free Shaikh Jovani ASKEW Work Phone: [facility] 03-15-2023 influenza virus vaccine, unspecified formulation Rema Tong NP Work Phone: [facility] 04-16-2020 influenza, injectabl e, quadrivalent, preservative free Shaikh Jovani ASKEW Work Phone: [facility] 07-31-2019 Influenza, injectabl e, Madin [place] Canine Kidney, preservative free, quadrivalent Shaikh Jovani ASKEW Work Phone: [facility] 04-19-2018 influenza, injectabl e, quadrivalent, preservative free Shaikh Jovani ASKEW Work Phone: [facility] 06-01-2017 influenza, seasonal, injectable, preservative free Shaikh Jovani ASKEW Work Phone: [facility] 03-29-2017 influenza, injectabl e, quadrivalent, preservative free Shaikh Jovani ASKEW Work Phone: [facility] 06-18-2015 influenza, seasonal, injectable, preservative free Shaikh Jovani ASKEW Work Phone: [facility] 12-05-2012 diphtheria, tetanus toxoids and pertussis vaccine Shaikh Jovani ASKEW Work Phone: [facility] Payers Date Payer Category Payer Private Health Insurance [id number] 2003 Private Health Insurance [id number] 1961 Unknown [id number] 2.16.84 0.1.254624.3.579.2.593 1961 Unknown [id number] 2.16.84 0.1.455176.3.579.2.593 1961 Unknown [id number] 2.16.84 0.1.010517.3.579.2.1259 1961 Unknown [id number] 2.16.84 0.1.989901.3.579.2.1259 1961 Unknown [id number] 2.16.84 0.1.137236.3.579.2.1259 1961 Unknown [id number] 2.16.84 0.1.486845.3.579.2.1259 1961 Unknown [id number] 2.16.84 0.1.037698.3.579.2.1259 1961 Unknown [id number] 2.16. 840.1.507791.3.579.2.1286 1961 Unknown [id number] 2.16. 840.1.211415.3.579.2.1286 1961 Unknown [id number] 2.16.8 40.1.906416.3.579.2.1285 1961 Unknown [id number] 2.16.8 40.1.088311.3.579.2.1285 1961 Unknown [id number] 2.16.8 40.1.170848.3.579.2.1285 1961 Unknown [id number] 2.16.8 40.1.183671.3.579.2.1285 1961 Unknown [id number] 2.16.8 40.1.773785.3.579.2.1285 1961 Unknown [id number] 2.16.8 40.1.922538.3.579.2.1285 1961 Unknown [id number] 2.16.8 40.1.704679.3.579.2.1285 1961 Unknown [id number] 2.16.8 40.1.991860.3.579.2.1285 1961 Unknown [id number] 2.16.8 40.1.185939.3.579.2.1285 1961 Unknown [id number] 2.16.8 40.1.646188.3.579.2.1285 1961 Unknown [id number] 2.16.8 40.1.563790.3.579.2.1286 1961 Unknown [id number] 2.16.8 40.1.082573.3.579.2.1286 1961 Unknown [id number] 2.16.8 40.1.618374.3.579.2.1286 1961 Unknown [id number] 2.16.8 40.1.568883.3.579.2.1286 1961 Unknown [id number] 2.16.8 40.1.214289.3.579.2.1286 1961 Unknown [id number] 2.16.8 40.1.636054.3.579.2.1286 1961 Unknown [id number] 2.16.8 40.1.651494.3.579.2.1286 1961 Unknown [id number] 2.16.8 40.1.730876.3.579.2.1286 1959 Private Health Insurance [id number] Social History Date Type Detail Facility Start: 06-12-1982 End: 01-29-2023 Tobacco smoking status COIS Smokes tobacco daily [facility] Start: 06-12-1982 End: 09-11-2023 History of tobacco use Cigarette Smoker [facility] Start: 01-29-2023 End: 02-22-2024 Cigarettes smoked current (pack per day) - Reported 1 [facility] Start: 06-29-2023 End: 02-22-2024 Alcohol intake Lifetime non-drinker (finding) [facility] Start: 01-29-2023 End: 02-22-2024 Tobacco use panel [facility] Start: 11-27-2022 Alcohol Comment Caffeine: none [facility] Start: 1960 Sex Assigned At Not on file N [facility] Start: 12-16-2021 End: 12-28-2023 Tobacco use and exposure Smokeless tobacco non-user [facility] Start: 08-24-2023 Alcohol intake Current drinke r of alcohol (finding) [facility] Frequency of Alcohol Consumption Never [facility] Start: 08-19-2021 Alcohol Comment rarely [facility] Start: 12-28-2023 End: 01-24-2024 Tobacco smoking status NHIS Ex-smoker [facility] Start: 06-12-1982 End: 09-11-2023 History of tobacco use Current smoker [facility] History of tobacco use Passive smoker [facility] Start: 04-09-2024 End: 05-23-2024 Alcoholic beverage intake Ex-drinker (finding) [facility] Start: 01-15-2015 Sex Female (finding) [facility] Medical Equipment Procedure Code Equipment Code Equipment Origin al Text Equipment Identifier Dates Cement Bn Bio 40 gm Rpl [id number] - [id number] Start: 09-02-2021 Insert Artc 6-9 Cd 10mm Kn Rt Post Stab Pe Persona - [id number] Start: 09-02-2021 Baseplate Tib 5d D Kn Rt Cmnt Stm Persona Tiv Strl - [id number] Start: 09-02-2021 Cement Bn Bio 40 gm Rpl [id number] - [id number] Start: 09-02-2021 Component Ptlr 3 2mm Persona Alply Kn Strl Lf - [id number] Start: 09-02-2021 Component Fem 8 Cristopher Kn Rt Post Stab Cmnt Persona Cocr Strl - [id number] Start: 09-02-2021 Clinical Notes 07-17-2023 to 05-23-2024 NILDA Turner - 05/23/2024 9:45 AM ESTPatient InstructionsTelephone Encounter - Diana Becker MA - 05/23/2024 8:39 AM ESTTelephone Encounter - Diana Becker MA - 05/23/2024 8:39 AM EST Note Date & Type Note Facility 05-23-2024 History of Presen t illness Narrative [facility] [address] [place] [address] Patient: Cristofer Heath Sex: female : 1960 Age: 64 y.o. PCP: SHAIKH JOVANI MD 05/23/2024 Cristofer Heath is here for a(n) post procedure follow up 04/26/2024 left sacroiliac injection with 90% relief x 2 days, then 70% continued relief. Patient's pre op pain 6-10/10 to 1/10 , Her worst pain now is only in left groin. Date of onset of pain: 2019 , pain has lasted greater than 3 months. Pain scale before treatment: 10/10 Pre-op pain score: 10/10 Post-op pain score: 1/10 cont Percentage of relief after and duration: see above Pain scale after treatment: 8 to left groin Chief Complaint Patient presents with Back Pain HPI: PT/HEP 07/2022 not helpful Back: 09/23/22 Caudal w/60% relief for 3 days 10/21/22 Caudal w/60% relief continued 12/23/22 Bilateral SI with 80% continued relief 2023 bilateral sacroiliac injection with 100% relief that continues as of this date bilateral SI joint injection on 09/15/2023 with at least 90% relief pre-pain 10/10 post pain 0/10 02/09/2024 bilateral sacroiliac injection with 75-80% relief x 1 day. Patient's pain remained at 0-2/10 from hour 6 into the next day. 03/22/24 Caudal with 60-70% relief of leg and back pain most notable with walking that continues 04/26/2024 left sacroiliac injection with 90% relief x 2 days, then 70% continued relief. Patient's pre op pain 6-10/10 to 1/10 Back Pain This is a chronic problem. The current episode started more than 1 year ago (@ 2020). The problem occurs constantly. The problem is unchanged. Pain location: left groin. The quality of the pain is described as aching. Radiates to: left groin. The pain is at a severity of 8/10 (left groin). The pain is moderate (to severe). The pain is The same all the time. The symptoms are aggravated by standing, bending and twisting (walking). Stiffness is present: na. Pertinent negatives include no bladder incontinence, bowel incontinence, chest pain, fever, leg pain, numbness, tingling or weakness. Risk factors include poor [...] 04/03/2018 Performed by Chepe Bustamante MD at [facility] SURGERY CYSTOSCOPY W/ URETERAL STENT PLACEMENT 2013 x 2 DILATION AND CURETTAGE OF UTERUS 1981, 1983 HYSTERECTOMY 1996 total INJECTION BLOCK EPIDURAL CAUDAL STEROID N/A 03/22/2024 Performed by Joshua Dickens MD at [facility] INJECTION BLOCK EPIDURAL CAUDAL STEROID N/A 10/21/2022 Performed by Joshua Dickens MD at [facility] INJECTION BLOCK EPIDURAL CAUDAL STEROID N/A 09/23/2022 Performed by Joshua Dickens MD at [facility] INJECTION BLOCK SACROILIAC JOINT Left 04/26/2024 Performed by Joshua Dickens MD at [facility] INJECTION BLOCK SACROILIAC JOINT Bilateral 02/09/2024 Performed by Joshua Dickens MD at [facility] INJECTION BLOCK SACROILIAC JOINT Bilateral 09/15/2023 Performed by Joshua Dickens MD at [facility] INJECTION BLOCK SACROILIAC JOINT Bilateral 2023 Performed by Joshua Dickens MD at [facility] INJECTION BLOCK SACROILIAC JOINT Bilateral 12/23/2022 Performed by Joshua Dickens MD at [facility] OOPHORECTOMY OTHER SURGICAL HISTORY 1982 uterus reconstruction REPLACEMENT TOTAL JOINT KNEE Right 09/02/[address] Sylvester MD at [facility] TONSILLECTOMY Allergies Allergen Reactions Avelox [Moxifloxacin] Nausea [...] Not on file Tobacco Use Smoking status: Former Current packs/day: 0.00 Average packs/day: 1 pack/day for 41.2 years (41.2 ttl pk-yrs) Types: Cigarettes Start date: 06/12/1982 Quit date: 09/2023 Years since quittin.6 Smokeless tobacco: Never Vaping Use Vaping status: Never Used Substance and Sexual Activity Alcohol use: Not Currently Drug use: No Sexual activity: Defer Partners: Male Other Topics Concern Not on file Social History Narrative Not on file Social Drivers of Health Financial Resource Strain: Not on file Food Insecurity: No Food Insecurity (05/23/2024) Hunger Screening Food Insecurity - Worry: Never True Food Insecurity - Inability: Never True Transportation Needs: Not on file Physical Activity: Not on file Stress: Not on file Social Connections: Not on file Interpersonal Safety: Not on file Housing Instability: Not on file Review of Systems Constitutional: Negative. Negative for chills, fatigue and fever. HENT: Negative. Eyes: Negative. Respiratory: Negative. Negative for cough and shortness of breath. Cardiovascular: Negative. Negative for chest pain. Gastrointestinal: Positive for constipation (chronic - intermittently). Negative for bowel incontinence and diarrhea. Endocrine: Negative. Genitourinary: Negative. Negative for bladder incontinence. Musculoskeletal: Positive for back pain. Negative for gait problem. Skin: Negative. Negative for rash and wound. Allergic/Immunologic: Negative. Neurological: Negative. Negative for tingling, weakness and numbness. Hematological: Negative. Does not bruise/bleed easily. Psychiatric/Behavioral: Negative. Negative for self-injury and suicidal ideas. Vital Signs: BP 134/70 Pulse 64 Resp 18 Ht 162.6 cm (5' 4 ) Wt 90.7 kg (200 lb) SpO2 98% BMI 34.33 kg/m Physical Exam: GENERAL - Healthy patient [...] Raise is negative bilaterally. Tenderness to palpation noted over the Left Hip Joint. Pain is elicited with internal and external rotation of the hip and hip provocative maneuvers are positive and consistent with some of the patient s normal pain. No obvious ligamental laxity is noted. Gait is normal. Assessment/Treatment Plan: Cristofer was seen today for back pain. Diagnoses and all orders for this visit: Primary osteoarthritis of left hip - Case request operating room: INJECTION BURSA LARGE JOINT: left hip Left Hip Injection - under fluoroscopy with the use [...] risks and benefits and wishes to proceed. It was explained that hip injections occasionally require a repeat injection before significant relief is noted, but we will determine after each injection if another one is indicated. Depending on the amount and duration of relief obtained from the injection, additional modalities of therapy including medications and physical therapy may need to be utilized alongside or following the injections. We may also need to consider surgical options if injections fail to provide relief for a reasonable duration. Follow up 2 weeks after procedure The medications prescribed have been reviewed for medication interactions/contraindications and/or for upcoming procedures: continue current medication regimen without any changes. DISCUSSION: Treatment options discussed with patient and all questions answered to patient's satisfaction. Prescribed medication that requires intensive monitoring for toxicity We do not currently prescribe any controlled substance from this practice. It appears that the patient's previous pain is under adequate control with the previous procedure. At this point, we will continue to monitor these symptoms and turn our immediate attention to the more painful complaint that was discussed today. It does appear that is it the new primary pain complaint and the patient would likely benefit from a procedure as treatment for this complaint as well. The spine model was demonstrated and MRI [...] them with the patient for these reasons. Comorbidity- Anxiety The patient describes a significant issue with anxiety. Although treatment is helpful with this regard, the patient is likely need special accommodation due to this condition. For this reason, necessary procedures will likely need to be performed under sedation to decrease procedural anxiety. Comorbidity- Depression The patient has an ongoing issue with depression and currently feels these symptoms are under control and further feels that appropriate pain management would also help these symptoms. The patient is optimistic about the treatment plan we have laid out. We will continue to monitor these symptoms and remain cogniscent that they may affect the patients perceived improvement from the treatment and willingness to pursue further treatment. At this time the patient appears to be mentally and emotionally stable to undergo procedural and medical therapy. If any warning signs become present, I may refer the patient to a mental health professional for further evaluation. OARRS: Reviewed. Scribe Statement: Scribed for and in the presence of NILDA TURNER by Estefany Hoffman CNA. Provider Statement: I, NILDA TURNER, personally performed the services described in the documentation, as scribed by Estefany Hoffman CNA in my presence, and it is both accurate and complete. Estefany Hoffman CNA 05/23/24 1044 NILDA Turner 05/23/24 [id number] documented in this encounter [facility] 05-23-2024 Instructions Estefany Hoffman CNA - 05/23/2024 9:45 AM EST Joint Injections / Other These procedure(s) involve injecting steroid medications into a joint or other area explained by your physician. Steroid medicine decreases pain and inflammation. The injection may also contain an anesthetic (numbing medicine) to decrease pain. It may be done to treat conditions such as arthritis, gout, carpal tunnel syndrome and more. The injections may be given in your hip, knee, ankle, shoulder, elbow, wrist, or ankle. How Long Will This Procedure Last? The extent and duration of pain relief may depend on the amount of inflammation and how many areas are involved. Other coexisting factors may be responsible for your pain. You and your physician will discuss expected results of procedure(s). After Your Injection You may experience soreness and tenderness at the area of treatment. This pain may not occur until later today after the numbing medicine wears off. The steroid can take 3-5 days to work and provide noticeable improvement. Activity You may resume normal activity as your comfort level allows. Medications Resume your routine medications after your procedure. [...] legs: Go to the nearest emergency room. If you are diabetic, the steroids used in this procedure can increase your blood sugar. If your blood sugar is 250mg/dL or higher, contact your primary care physician, or the doctor who manages your diabetes, to discuss how to get it back to normal. documented in this encounter [facility] 05-23-2024 Telephone encounter Note 90 day supply please. 05/16/2024 08/19/2024 [facility] 05-23-2024 Miscellaneous Notes 90 day supply please. 05/16/2024 08/19/2024 documented in this encounter [facility] 05-16-2024 History of Presen t illness Narrative Associated Problem(s): URTI (acute upper respiratory infection) Presents today complaining of URI symptoms ongoing for 2 weeks Admits: Productive cough-yellow phlegm Runny nose Ear ache Sore throat Headache Has tried several OTC treatments with no relief. Will order Azithromycin, prednisone and tessalon pearles today. Images from the original note were not included. Subjective Patient ID: Cristofer Heath is a 64 y.o. female who presents for Nasal Congestion (Headache , cough and ears hurting). HPI Following with Dr. Aguilar- having low dose CT scan done and split sleep study done. Presents today complaining of URI symptoms ongoing for 2 weeks Admits: Productive cough-yellow phlegm Runny nose Ear ache Sore throat Headache Denies: Fever Shortness of breath Chest pain N/V/D TX: Mucinex [place] Tessalon Pearles Flonase No relief Review of Systems Constitutional: Positive for fatigue. Negative for fever. HENT: Positive for congestion, ear pain, rhinorrhea and sore throat. Negative for sinus pressure, sinus pain, trouble swallowing and voice change. Eyes: Negative for discharge, redness, itching and visual disturbance. Respiratory: Positive for cough. Negative for chest tightness, shortness of breath and wheezing. Gastrointestinal: Negative for constipation, diarrhea, nausea and vomiting. Neurological: Positive for headaches. Negative for dizziness and light-headedness. Objective Physical Exam Constitutional: Appearance: Normal appearance. HENT: Head: Normocephalic. Right Ear: External ear normal. Tympanic membrane is erythematous. Left Ear: External ear normal. Tympanic membrane is erythematous. Nose: Rhinorrhea present. Mouth/Throat: Mouth: Mucous membranes are moist. Pharynx: Oropharynx is clear. Eyes: Pupils: Pupils are equal, round, and reactive to light. Cardiovascular: Rate and Rhythm: Normal rate and regular rhythm. Pulses: Normal pulses. Pulmonary: Effort: Pulmonary effort is normal. Breath sounds: Rhonchi present. Abdominal: General: Abdomen is flat. Bowel sounds are normal. Palpations: Abdomen is soft. Musculoskeletal: General: Normal range of motion. Cervical back: Normal range of motion. Skin: General: Skin is warm. Neurological: Mental Status: She is alert and oriented to person, place, and time. Psychiatric: Mood and Affect: Mood normal. Behavior: Behavior normal. Assessment/Plan Problem List Items Addressed This Visit URTI (acute upper respiratory infection) Presents today complaining of URI symptoms ongoing for 2 weeks Admits: Productive cough-yellow phlegm Runny nose Ear ache Sore throat Headache Has tried several OTC treatments with no relief. Will order Azithromycin, prednisone and tessalon pearles today. Major depressive disorder with single episode, in full remission (CMS/[facility]) Relevant Medications traZODone (Desyrel) 50 MG tablet Other Visit Diagnoses Upper respiratory tract infection, unspecified type - Primary Relevant Medications azithromycin (Zithromax) 500 MG tablet benzonatate (Tessalon Perles) 100 MG capsule predniSONE (Deltasone) 20 MG tablet documented in this encounter [facility] 05-16-2024 Instructions Rema Tong NP - 05/16/2024 9:30 AM EST Continue to rest, drink plenty of fluids, and eat a well-balance diet. Resume normal activity. AVOID anything strenuous until you are feeling better. Treatment: Nasal saline spray 2-3 times/dayCold and sinus medication - if you have high blood pressure issues use coricidin hbp Bernie or zyrtec allergy medication once daily. Flonase nasal spray 1-2 squirts in each nostril at night. Tylenol for fever and body aches. Mucinex for cough/congestion 600-1,200mg twice daily. Vitamins: Vitamin C 1,000mg per day. Vitamin D3 2,000 international unit(s) per day.Zinc 25mg per day. WORSENING SYMPTOMS, CHEST PAIN, OR SHORTNESS OF BREATH, GO TO THE NEAREST EMERGENCY DEPARTMENT. documented in this encounter [facility] 05-02-2024 Telephone encounter Note 90 day supply please RENAE:02/22/2024 NOV:05/16/2024 [facility] 05-02-2024 Miscellaneous Notes 90 day supply please RENAE:02/22/2024 NOV:05/16/2024 documented in this encounter [facility] 04-26-2024 Miscellaneous Notes Last Office Visit: 04/09/2024 Next Office Visit: 05/23/2024 Last Urine Drug Screen: No results found for: BENZOSCRN OARRS appropriate documented in this encounter [facility] 04-26-2024 Telephone encounter Note Last Office Visit: 04/09/2024 Next Office Visit: 05/23/2024 Last Urine Drug Screen: No results found for: BENZOSCRN OARRS appropriate [facility] 04-09-2024 Telephone encounter Note Pt requesting refills on her Lipitor and her Trazodone. RENAE:02/22/2024 NOV:04/24/2024 [facility] 04-09-2024 Miscellaneous Notes Pt requesting refills on her Lipitor and her Trazodone. RENAE:02/22/2024 NOV:04/24/2024 documented in this encounter [facility] 04-09-2024 History of Presen t illness Narrative [facility] [address] [place] [address] Patient: Cristofer Heath Sex: female : 1960 Age: 63 y.o. PCP: SHAIKH JOVANI MD 04/09/2024 Cristofer Heath is here for a(n) post procedure follow up caudal with 60-70% relief of back and leg pain most notable with walking that continues. Patient reports pain on left hip and groin pain worst with transitioning is currently a 6/10 and cn increase to 10/10 with increased activity. Date of onset of pain: 2019 , pain has lasted greater than 3 months. Pain scale before treatment: 3/10 Pre-op pain score: 2/10 Percentage of relief after and duration: 60-70% relief of back and leg pain that continues Pain scale after treatment: 6/10 in left hip and groin Chief Complaint Patient presents with Back Pain HPI: PT/HEP 07/2022 not helpful Back: 09/23/22 Caudal w/60% relief for 3 days 10/21/22 Caudal w/60% relief continued 12/23/22 Bilateral SI with 80% continued relief 2023 bilateral sacroiliac injection with 100% relief that continues as of this date bilateral SI joint injection on 09/15/2023 with at least 90% relief pre-pain 10/10 post pain 0/10 02/09/2024 bilateral sacroiliac injection with 75-80% relief x 1 day. Patient's pain remained at 0-2/10 from hour 6 into the next day. 03/22/24 Caudal with 60-70% relief of leg and back pain most notable with walking that continues Back Pain This is a chronic problem. The current episode started more than 1 year ago (@ 2020). The problem occurs constantly. The problem is unchanged. The pain is present in the lumbar spine (left). The quality of the pain is described as aching. The pain does not radiate. The pain is at a severity of 6/10 (can be 10/10 with increased activity). The pain is mild (to severe). The pain is The same all the time. The symptoms are aggravated by standing, bending and twisting (walking). Stiffness is present: na. Pertinent negatives include no bladder incontinence, bowel incontinence, chest pain, fever, leg pain, numbness, tingling or weakness. Risk factors include poor [...] 04/03/2018 Performed by Chepe Bustamante MD at [facility] SURGERY CYSTOSCOPY W/ URETERAL STENT PLACEMENT 2014 x 2 DILATION AND CURETTAGE OF UTERUS 1981, 1983 HYSTERECTOMY 1996 total INJECTION BLOCK EPIDURAL CAUDAL STEROID N/A 03/22/2024 Performed by Joshua Dickens MD at [facility] INJECTION BLOCK EPIDURAL CAUDAL STEROID N/A 10/21/2022 Performed by Joshua Dickens MD at [facility] INJECTION BLOCK EPIDURAL CAUDAL STEROID N/A 09/23/2022 Performed by Joshua Dickens MD at [facility] INJECTION BLOCK SACROILIAC JOINT Bilateral 02/09/2024 Performed by Joshua Dickens MD at [facility] INJECTION BLOCK SACROILIAC JOINT Bilateral 09/15/2023 Performed by Joshua Dickens MD at [facility] INJECTION BLOCK SACROILIAC JOINT Bilateral 2023 Performed by Joshua Dickens MD at [facility] INJECTION BLOCK SACROILIAC JOINT Bilateral 12/23/2022 Performed by Joshua Dickens MD at [facility] OOPHORECTOMY OTHER SURGICAL HISTORY 1982 uterus reconstruction REPLACEMENT TOTAL JOINT KNEE Right 09/02/[address] Sylvester MD at [facility] TONSILLECTOMY Allergies Allergen Reactions Avelox [Moxifloxacin] Nausea [...] Not on file Tobacco Use Smoking status: Former Current packs/day: 0.00 Average packs/day: 1 pack/day for 41.2 years (41.2 ttl pk-yrs) Types: Cigarettes Start date: 06/12/1982 Quit date: 09/2023 Years since quittin.5 Smokeless tobacco: Never Vaping Use Vaping status: Never Used Substance and Sexual Activity Alcohol use: Not Currently Drug use: No Sexual activity: Defer Partners: Male Other Topics Concern Not on file Social History Narrative Not on file Social Drivers of Health Financial Resource Strain: Not on file Food Insecurity: No Food Insecurity (04/09/2024) Hunger Screening Food Insecurity - Worry: Never True Food Insecurity - Inability: Never True Transportation Needs: Not on file Physical Activity: Not on file Stress: Not on file Social Connections: Not on file Interpersonal Safety: Not on file Housing Instability: Not on file Review of Systems Constitutional: Negative. Negative for chills, fatigue and fever. HENT: Negative. Negative for congestion and sore throat. Eyes: Negative. Respiratory: Negative. Negative for cough and shortness of breath. Cardiovascular: Negative. Negative for chest pain. Gastrointestinal: Negative. Negative for bowel incontinence, constipation and diarrhea. Endocrine: Negative. Genitourinary: Negative. Negative for bladder incontinence. Musculoskeletal: Positive for back pain. Skin: Negative. Allergic/Immunologic: Negative. Neurological: Negative. Negative for tingling, weakness and numbness. Hematological: Negative. Psychiatric/Behavioral: Negative. Vital Signs: BP 130/73 (BP Site: Right Arm, BP Postition: Sitting) Pulse 70 Resp 18 Ht 162.6 cm (5' 4 ) Wt 91.2 kg (201 lb) SpO2 98% BMI 34.50 kg/m Physical Exam: GENERAL - Healthy patient [...] Tenderness to palpation is noted over the Left SacroIliac Joint: Fabere sign (Julián's Test) is significantly positive, as is compression and distraction of the sacroiliac joints, which is consistent with some of the patient's normal pain. Gait is normal. Assessment/Treatment Plan: Cristofer was seen today for back pain. Diagnoses and all orders for this visit: Disorder of sacrum - Case request operating room: INJECTION BLOCK SACROILIAC JOINT Left Sacroiliac Joint Injection - under fluoroscopy with [...] any controlled substance from this practice. It appears that the patient's previous pain is under adequate control with the previous procedure. At this point, we will continue to monitor these symptoms and turn our immediate attention to the more painful complaint that was discussed today. It does appear that is it the new primary pain complaint and the patient would likely benefit from a procedure as treatment for this complaint as well. The spine model was demonstrated and MRI [...] both accurate and complete. Estefany Hoffman CNA 04/09/24 1035 NILDA Turner 04/09/24 1201 documented in this encounter [employer] 04-09-2024 Instructions Estefany Hoffman CNA - 04/09/2024 9:45 AM EDT Facet Injection / Medial Branch Block (MBB) / Sacroiliac (SI) Joint Injection / Cluneal NB A facet injection and sacroiliac joint injection [...] nearest emergency room. documented in this encounter [facility] 02-23-2024 History of Presen t illness Narrative Associated Problem(s): Hypersomnia with sleep apnea Does wear CPAP- has not had a sleep study or equipment change in several years 15-20 years. Reports headaches and frequent yawning. Will refer for sleep study and CPAP management. Images from the original note were not included. Subjective Patient ID: Cristofer Heath is a 63 y.o. female who presents for No chief complaint on file.. HPI Started Adipex for 1 week; Took BP and reading was 174/95; Had headache; Called office was advised to stop adipex. Is here today to follow up: Has been off Adipex now for one week Reports headache has not subsided BP in office today is 118/70 Admits: Headache Feels she needs to take more frequent breaths. Excessive yawning Denies: Swelling in extremities. Chest pain Dizziness Cough Shortness of breath with exertion Does wear CPAP- has not had a sleep study in several years 15-20 years. Will refer for sleep study and CPAP management. Review of Systems Constitutional: Negative for activity change, appetite change, chills, diaphoresis, fatigue, fever and unexpected weight change. HENT: Negative for congestion, ear pain, rhinorrhea, sinus pressure, sinus pain, sneezing, sore throat, trouble swallowing and voice change. Eyes: Negative for visual disturbance. Respiratory: Negative for apnea, cough, chest tightness, shortness of breath and wheezing. Cardiovascular: Negative for chest pain, palpitations and leg swelling. Gastrointestinal: Negative for abdominal distention, abdominal pain, blood in stool, constipation, diarrhea and vomiting. Genitourinary: Negative for decreased urine volume, dysuria, flank pain, frequency, hematuria and urgency. Musculoskeletal: Negative for arthralgias, gait problem, joint swelling and myalgias. Skin: Negative for rash. Neurological: Positive for headaches. Negative for dizziness, tremors, syncope, weakness and light-headedness. Frequent yawning Psychiatric/Behavioral: Negative for decreased concentration and suicidal ideas. The patient is not nervous/anxious. Hematological: Does not bruise/bleed easily. Endocrine: Negative for cold intolerance, heat intolerance, polydipsia, polyphagia and polyuria. Objective Physical Exam Vitals reviewed. Constitutional: Appearance: Normal appearance. HENT: Head: Normocephalic and atraumatic. Right Ear: Tympanic membrane normal. Left Ear: Tympanic membrane normal. Nose: Nose normal. Mouth/Throat: Mouth: Mucous membranes are moist. Pharynx: Oropharynx is clear. Eyes: Pupils: Pupils are equal, round, and reactive to light. Cardiovascular: Rate and Rhythm: Normal rate and regular rhythm. Pulses: Normal pulses. Heart sounds: Normal heart sounds. Pulmonary: Effort: Pulmonary effort is normal. Breath sounds: Normal breath sounds. Abdominal: General: Abdomen is flat. Bowel sounds are normal. Palpations: Abdomen is soft. Musculoskeletal: General: Normal range of motion. Cervical back: Normal range of motion. Skin: General: Skin is warm and dry. Capillary Refill: Capillary refill takes less than 2 seconds. Neurological: General: No focal deficit present. Mental Status: She is alert and oriented to person, place, and time. Psychiatric: Mood and Affect: Mood normal. Behavior: Behavior normal. Assessment/Plan Problem List Items Addressed This Visit Hypersomnia with sleep apnea - Primary Does wear CPAP- has not had a sleep study or equipment change in several years 15-20 years. Reports headaches and frequent yawning. Will refer for sleep study and CPAP management. Relevant Orders Ambulatory referral to Pulmonology Sleep apnea Relevant Orders Ambulatory referral to Pulmonology documented in this encounter [facility] 02-22-2024 Instructions Rema Tong NP - 02/22/2024 10:30 AM EDT Referral sent to Pulmonology- They will call you! Do not restart adipex. If you develop shortness of breath at rest or with movement, chest pain, swelling in hands, legs, feet GO TO ER IMMEDIATELY!!! documented in this encounter [facility] 08-24-2023 History of Presen t illness Narrative [facility] [address] [place] [address] Patient: Cristofer Heath Sex: female : 1960 [...] 04/03/2018 Performed by Chepe Bustamante MD at [facility] CYSTOSCOPY W/ URETERAL STENT PLACEMENT 2014 x 2 DILATION AND CURETTAGE OF UTERUS 1981, 1983 HYSTERECTOMY 1996 total INJECTION BLOCK EPIDURAL CAUDAL STEROID N/A 10/21/2022 Performed by Joshua Dickens MD at [facility] INJECTION BLOCK EPIDURAL CAUDAL STEROID N/A 09/23/2022 Performed by Joshua Dickens MD at [facility] INJECTION BLOCK SACROILIAC JOINT Bilateral 2023 Performed by Joshua Dickens MD at [facility] INJECTION BLOCK SACROILIAC JOINT Bilateral 12/23/2022 Performed by Joshua Dickens MD at [facility] OOPHORECTOMY OTHER SURGICAL HISTORY 1982 uterus reconstruction REPLACEMENT TOTAL JOINT KNEE Right 09/02/[address] Sylvester MD at [facility] TONSILLECTOMY Allergies Allergen Reactions Avelox [Moxifloxacin] Nausea [...] Turner 08/24/23 1208 documented in this encounter [facility] 08-24-2023 Instructions Estefany Hoffman CNA - 08/24/2023 [...] nearest emergency room. documented in this encounter [employer] 07-17-2023 History of Presen t illness Narrative [...] disorder with single episode, in full remission ([facility]) Well controlled. Last appointment, she was weaned off of Prozac and her dose was decreased to 10 mg daily. Doing well on it. Associated Problem(s): HLD (hyperlipidemia) ([facility]) On Lipitor. C/w same. Associated Problem(s): URTI (acute upper respiratory infection) She reports feeling tired for past few days. For a couple of days, she also felt lightheaded and dizzy. Her BP was at goal and her blood glucose were normal Patient's exam indicated bilateral suppurative otitis media along with pharyngitis. Will call in oral Azithromycin for her. Associated Problem(s): Primary hypertension ([facility]) Asymptomatic. Denies CP, SOB, palpitations. Monitoring w/o [...] months (around 01/15/2024). documented in this encounter [facility] Healthcare Evaluation note Diagnosis Obstructive sleep apnea syndrome- Primary Obstructive sleep apnea (adult) (pediatric) Hyperlipidemia, unspecified hyperlipidemia type (CMS/HCC) Primary hypertension (CMS/HCC) Unspecified essential hypertension URTI (acute upper respiratory infection) Acute upper respiratory infections of unspecified site Major depressive disorder with single episode, in full remission (CMS/HCC) Tobacco abuse Tobacco use disorder documented [facility] this encounter [facility] Diagnosis Disorder of sacrum- Primary Disorders of sacrum Disorder of sacrum- Primary Disorders of sacrum Disorder of sacrum Disorders of sacrum [facility] Diagnosis Obstructive sleep apnea syndrome- Primary Obstructive sleep apnea (adult) (pediatric) documented [facility]* Diagnosis Primary osteoarthritis of left hip Primary osteoarthritis of right knee Spinal stenosis of lumbar region with neurogenic claudication [facility] Diagnosis Obstructive sleep apnea syndrome- Primary Obstructive sleep apnea (adult) (pediatric) Hyperlipidemia, unspecified hyperlipidemia type (CMS/HCC) Primary hypertension ([facility]) Unspecified essential hypertension URTI (acute upper respiratory infection) Acute upper respiratory infections of unspecified site Major depressive disorder with single episode, in full remission ([facility]) Tobacco abuse Tobacco use disorder Mixed hyperlipidemia (CMS/HCC)- Primary Mixed hyperlipidemia Major depressive disorder with single episode, in full remission ([facility]) BMI 35.0-35.9,adult Hypersomnia with sleep apnea- Primary Hypersomnia with sleep apnea, unspecified Obstructive sleep apnea syndrome Obstructive sleep apnea (adult) (pediatric) Primary hypertension ([facility]) Unspecified essential hypertension documented [facility] Diagnosis Disorder of sacrum- Primary Disorders of sacrum Disorder of sacrum- Primary Disorders of sacrum Disorder of sacrum Disorders of sacrum [facility] Diagnosis Obstructive sleep apnea syndrome- Primary Obstructive sleep apnea (adult) (pediatric) Hyperlipidemia, unspecified hyperlipidemia type ([facility]) Primary hypertension ([facility]) Unspecified essential hypertension URTI (acute upper respiratory infection) Acute upper respiratory infections of unspecified site Major depressive disorder with single episode, in full remission ([facility]) Tobacco abuse Tobacco use disorder Mixed hyperlipidemia ([facility])- Primary Mixed hyperlipidemia Major depressive disorder with single episode, in full remission ([facility]) BMI 35.0-35.9,adult Hypersomnia with sleep apnea- Primary Hypersomnia with sleep apnea, unspecified Obstructive sleep apnea syndrome Obstructive sleep apnea (adult) (pediatric) Major depressive disorder with single episode, in full remission ([facility]) documented [facility] Diagnosis Obstructive sleep apnea syndrome- Primary Obstructive sleep apnea (adult) (pediatric) Hyperlipidemia, unspecified hyperlipidemia type ([facility]) Primary hypertension ([facility]) Unspecified essential hypertension URTI (acute upper respiratory infection) Acute upper respiratory infections of unspecified site Major depressive disorder with single episode, in full remission ([facility]) Tobacco abuse Tobacco use disorder Mixed hyperlipidemia ([facility])- Primary Mixed hyperlipidemia Major depressive disorder with single episode, in full remission ([facility]) BMI 35.0-35.9,adult Hypersomnia with sleep apnea- Primary Hypersomnia with sleep apnea, unspecified Obstructive sleep apnea syndrome Obstructive sleep apnea (adult) (pediatric) Primary osteoarthritis of left hip Primary osteoarthritis of right knee Spinal stenosis of lumbar region with neurogenic claudication [facility] Diagnosis Obstructive sleep apnea syndrome- Primary Obstructive sleep apnea (adult) (pediatric) Hyperlipidemia, unspecified hyperlipidemia type ([facility]) Primary hypertension ([facility]) Unspecified essential hypertension URTI (acute upper respiratory infection) Acute upper respiratory infections of unspecified site Major depressive disorder with single episode, in full remission ([facility]) Tobacco abuse Tobacco use disorder Mixed hyperlipidemia ([facility])- Primary Mixed hyperlipidemia Major depressive disorder with single episode, in full remission ([facility]) BMI 35.0-35.9,adult Hypersomnia with sleep apnea- Primary Hypersomnia with sleep apnea, unspecified Obstructive sleep apnea syndrome Obstructive sleep apnea (adult) (pediatric) Primary hypertension ([facility]) Unspecified essential hypertension [facility] Diagnosis Obstructive sleep apnea syndrome- Primary Obstructive sleep apnea (adult) (pediatric) Hyperlipidemia, unspecified hyperlipidemia type ([facility]) Primary hypertension ([facility]) Unspecified essential hypertension URTI (acute upper respiratory infection) Acute upper respiratory infections of unspecified site Major depressive disorder with single episode, in full remission ([facility]) Tobacco abuse Tobacco use disorder Mixed hyperlipidemia ([facility])- Primary Mixed hyperlipidemia Major depressive disorder with single episode, in full remission ([facility]) BMI 35.0-35.9,adult Hypersomnia with sleep apnea- Primary Hypersomnia with sleep apnea, unspecified Obstructive sleep apnea syndrome Obstructive sleep apnea (adult) (pediatric) Upper respiratory tract infection, unspecified type- Primary Major depressive disorder with single episode, in full remission ([facility]) URTI (acute upper respiratory infection) Acute upper respiratory infections of unspecified site [facility]* Diagnosis Hypersomnia with sleep apnea- Primary Hypersomnia with sleep apnea, unspecified Obstructive sleep apnea syndrome Obstructive sleep apnea (adult) (pediatric) documented [facility]* Diagnosis Obstructive sleep apnea syndrome- Primary Obstructive sleep apnea (adult) (pediatric) Hyperlipidemia, unspecified hyperlipidemia type ([facility]) Primary hypertension ([facility]) Unspecified essential hypertension URTI (acute upper respiratory infection) Acute upper respiratory infections of unspecified site Major depressive disorder with single episode, in full remission ([facility]) Tobacco abuse Tobacco use disorder Mixed hyperlipidemia (CMS/HCC)- Primary Mixed hyperlipidemia Major depressive disorder with single episode, in full remission ([facility]) BMI 35.0-35.9,adult Hypersomnia with sleep apnea- Primary Hypersomnia with sleep apnea, unspecified Obstructive sleep apnea syndrome Obstructive sleep apnea (adult) (pediatric) Upper respiratory tract infection, unspecified type- Primary Major depressive disorder with single episode, in full remission ([facility]) URTI (acute upper respiratory infection) Acute upper respiratory infections of unspecified site Tobacco abuse Tobacco use disorder [facility]* Diagnosis Obstructive sleep apnea syndrome- Primary Obstructive sleep apnea (adult) (pediatric) Hyperlipidemia, unspecified hyperlipidemia type ([facility]) Primary hypertension ([facility]) Unspecified essential hypertension URTI (acute upper respiratory infection) Acute upper respiratory infections of unspecified site Major depressive disorder with single episode, in full remission ([facility]) Tobacco abuse Tobacco use disorder Mixed hyperlipidemia ([facility])- Primary Mixed hyperlipidemia Major depressive disorder with single episode, in full remission ([facility]) BMI 35.0-35.9,adult Hypersomnia with sleep apnea- Primary Hypersomnia with sleep apnea, unspecified Obstructive sleep apnea syndrome Obstructive sleep apnea (adult) (pediatric) Upper respiratory tract infection, unspecified type- Primary Major depressive disorder with single episode, in full remission ([facility]) URTI (acute upper respiratory infection) Acute upper respiratory infections of unspecified site Tobacco abuse Tobacco use disorder Major depressive disorder with single episode, in full remission ([facility]) [facility]* Diagnosis Primary osteoarthritis of left hip- Primary Primary osteoarthritis of left hip- Primary Primary osteoarthritis of left hip [facility] Diagnosis Osteopenia, unspecified location [facility]* Diagnosis Tobacco abuse Tobacco use disorder documented in [facility]* Diagnosis Primary hypertension ([facility])- Primary Unspecified essential hypertension documented in [facility]* Diagnosis Primary hypertension ([facility])- Primary Unspecified essential hypertension documented in [facility]* Diagnosis Obstructive sleep apnea syndrome- Primary Obstructive sleep apnea (adult) (pediatric) Hyperlipidemia, unspecified hyperlipidemia type ([facility]) Primary hypertension ([facility]) Unspecified essential hypertension URTI (acute upper respiratory infection) Acute upper respiratory infections of unspecified site Major depressive disorder with single episode, in full remission ([facility]) Tobacco abuse Tobacco use disorder Mixed hyperlipidemia ([facility])- Primary Mixed hyperlipidemia Major depressive disorder with single episode, in full remission ([facility]) BMI 35.0-35.9,adult Hypersomnia with sleep apnea- Primary Hypersomnia with sleep apnea, unspecified Obstructive sleep apnea syndrome Obstructive sleep apnea (adult) (pediatric) Upper respiratory tract infection, unspecified type- Primary Major depressive disorder with single episode, in full remission ([facility]) URTI (acute upper respiratory infection) Acute upper respiratory infections of unspecified site Major depressive disorder with single episode, in full remission ([facility]) documented in this encounter [facility] HealthcareInstructionsNot on filedocumented in [facility] ([facility] Consultation (Routine) - Pending Review Specialty Diagnoses / Procedures Referred By Contac t Referred To Contact Sleep Medicine Diagnoses Obstructive sleep apnea syndrome Procedures ME OFFICE/OUTPATIENT NEW HIGH MDM 60 MINUTES Shaikh Hahn MD [address] [facility] [place] [address] Osiris Bowden MD [address] [place] [address] [place] [address] Referral ID Status Reason Start Date Expiration Date Visits Requested Visits Authorized [id number] Pending Review Specialty Services Required 07/17/2023 01/13/2024 1 1 [facility] for referral (narrative)* Consultation (Routine) - Pending Review Specialty Diagnoses / Procedures Referred By Contac t Referred To Contact Pulmonary Disease Diagnoses Obstructive sleep apnea syndrome Procedures ME OFFICE/OUTPATIENT NEW HIGH MDM 60 MINUTES Rema Tong NP [address] [place] [address] Rober Aguilar MD [address] [place] [address] Referral ID Status Reason Start Date Expiration Date Visits Requested Visits Authorized [id number] Pending Review Specialty Services Required 03/14/2024 09/10/2024 1 1 [facility] ([facility]ative)* Consultation (Routine) - Authorized Specialty Diagnoses / Procedures Referred By Contac t Referred To Contact Pulmonary Disease Diagnoses Hypersomnia with sleep apnea Obstructive sleep apnea syndrome Procedures ME OFFICE/OUTPATIENT NEW HIGH MDM 60 MINUTES Rema Tong NP [address] [place] [address] Vladislav Cyr MD [address] [place] [phone] Referral ID Status Reason Start Date Expiration Date Visits Requested Visits Authorized [id number] Authorized Specialty Services Required 02/22/2024 08/20/2024 1 1 [facility] Healthcare Summary Purpose Family History No Family [...] SACROILIAC JOINT Yadiel Scott, NILDA [address] [place] [address] Referral ID Status Reason Start Date Expiration Date V isits Requested Visits Authorized [id number] Pending Review 08/24/2023 08/23/2024 1 1 Additional Source Comments INFORMATION SOURCE (unrecogn ized section and content) DATE CREATED AUTHOR 08/19/2019 Julio TSO[facility] DATE CREATED AUTHOR AUTHOR'S ORGANIZ ATION 06/03/2022 [facility] pital DATE CREATED AUTHOR AUTHOR'S ORGANIZ ATION 02/24/2024 [facility] Special[facility] EPIC DATE CREATED AUTHOR AUTHOR'S ORGANIZ ATION 06/26/2024 [facility] Care Teams (unrecognized sec tion and content) Criminal Intelligence Specialist Relationship Specialty Start Date End Date Shaikh Hahn MD PCP - General Internal Medicine 11/28/22 Criminal Intelligence Specialist Relationship Specialty Start Date End Date Shaikh Hahn MD PCP - General Internal Medicine 11/28/22 Criminal Intelligence Specialist Relationship Specialty Start Date End Date Shaikh Hahn MD [address] [place], [place] [id number] PCP - General Internal Medicine 11/16/21 Criminal Intelligence Specialist Relationship Specialty Start Date End Date Bahman Mcginnis MD [address] [place] [phone] PCP - General Family Medicine 01/24/24 Rema Tong NP [address] [place] [address] Nurse Practitioner Family Medicine 01/24/24 Criminal Intelligence Specialist Relationship Specialty Start Date End Date Bahman Mcginnis MD [address] [place] [address] PCP - General Family Medicine 01/24/24 Rema Tong NP [address] [place] [address] Nurse Practitioner Family Medicine 01/24/24 Criminal Intelligence Specialist Relationship Specialty Start Date End Date Bahman Mcginnis MD [address] [place] [address] PCP - General Family Medicine 01/24/24 Rema Tong NP [address] [place], [place] [address] Nurse Practitioner Family Medicine 01/24/24 Criminal Intelligence Specialist Relationship Specialty Start Date End Date Shaikh Hahn MD PCP - General Internal Medicine 11/16/21 Criminal Intelligence Specialist Relationship Specialty Start Date End Date Bahman Mcginnis MD [address] [place] [phone] PCP - General Family Medicine 01/24/24 Rema Tong NP [address] [place] [address] Nurse Practitioner Family Medicine 01/24/24 Criminal Intelligence Specialist Relationship Specialty Start Date End Date Bahman Mcginnis MD [address] [place] [phone] PCP - General Family Medicine 01/24/24 Rema Tong NP [address] [place] [address] Nurse Practitioner Family Medicine 01/24/24 Criminal Intelligence Specialist Relationship Specialty Start Date End Date Shaikh Hahn MD PCP - General Internal Medicine 11/16/21 Criminal Intelligence Specialist Relationship Specialty Start Date End Date Bahman Mcginnis MD [address] [place] [phone] PCP - General Family Medicine 01/24/24 Rema Tong NP [address] [place] [address] Nurse Practitioner Family Medicine 01/24/24 Criminal Intelligence Specialist Relationship Specialty Start Date End Date Bahman Mcginnis MD [address] [place] [address] PCP - General Family Medicine 01/24/24 Rema Tong NP [address] [place] [address] Nurse Practitioner Family Medicine 01/24/24 Criminal Intelligence Specialist Relationship Specialty Start Date End Date Bahman Mcginnis MD [address] [place] [address] PCP - General Family Medicine 01/24/24 Rema Tong NP [address] [place] [address] Nurse Practitioner Family Medicine 01/24/24 Criminal Intelligence Specialist Relationship Specialty Start Date End Date Bahman Mcginnis MD [address] [place] [address] PCP - General Family Medicine 01/24/24 Rema Tong NP [address] [place] [address] Nurse Practitioner Family Medicine 01/24/24 Criminal Intelligence Specialist Relationship Specialty Start Date End Date Bahman Mcginnis MD [address] [place] [phone] PCP - General Family Medicine 01/24/24 Rema Tong NP [address] [place] [address] Nurse Practitioner Family Medicine 01/24/24 Criminal Intelligence Specialist Relationship Specialty Start Date End Date Bahman Mcginnis MD [address] [place] [phone] PCP - General Family Medicine 01/24/24 Rema Tong NP [address] [place] [address] Nurse Practitioner Family Medicine 01/24/24 Criminal Intelligence Specialist Relationship Specialty Start Date End Date Shaikh Hahn MD PCP - General Internal Medicine 11/16/21 Criminal Intelligence Specialist Relationship Specialty Start Date End Date Bahman Mcginnis MD [address] [place] [address] PCP - General Family Medicine 01/24/24 Rema Tong NP [address] [place] [address] Nurse Practitioner Family Medicine 01/24/24 Criminal Intelligence Specialist Relationship Specialty Start Date End Date Bahman Mcginnis MD [address] [place] [phone] PCP - General Family Medicine 01/24/24 Rema Tong NP [address] [place] [address] Nurse Practitioner Family Medicine 01/24/24 Criminal Intelligence Specialist Relationship Specialty Start Date End Date Bahman Mcginnis MD [address] [place] [phone] PCP - General Family Medicine 01/24/24 Rema Tong NP [address] [place] [address] Nurse Practitioner Family Medicine 01/24/24 Criminal Intelligence Specialist Relationship Specialty Start Date End Date Bahman Mcginnis MD [address] [place] [phone] PCP - General Family Medicine 01/24/24 Rema Tong NP [address] [place] [phone] Nurse Practitioner Family Medicine 01/24/24 Reason for Visit (unrecogniz ed section and content) Reason Comments Follow-up Reason Comments Back Pain Reason Comments Med Refill Reason Onset Date Comments Med Refill 04/09/2024 Reason Onset Date Comments Med Refill 04/26/2024 Reason Comments Nasal Congestion Headache , cough and ears hurting Reason Onset Date Comments Med Refill 02/19/2024 Reason Onset Date Comments Med Refill 02/20/2024 FOR RECORDS PERTAINING TO PATIENTS WHO ARE [...] BE BASED ON THE PRIMARY CLINICAL RECORDS. [facility]. provides no warranty or guarantee of the accuracy or completeness of information in this document.
--- NOTE | 2024-07-08 08:28 | XR_ITS ---
[facility] [place] [id number] Patient Name: CRISTOFER HEATH MRN: [id number] date: 1960 Sex: F Assigned Patient Location: ER Current Patient Location: ED.MAIN Accession/Order Number: [id number] Exam Date: 07/08/2024 08:20 Report Date: 07/08/2024 08:46 At the request of: LISA MACIAS Procedure: XR lumbar spine 2-3V EXAMINATION: XR lumbar spine 2-3V HISTORY: Atraumatic pain ; low back pain, back spasm COMPARISON: XR lumbar spine 05/25/2022 FINDINGS: BONES: Moderate right convex curvature of lumbar spine. Mild grade 1 retrolisthesis of L4 on 5. Multilevel degenerative endplate changes and moderate-marked degenerative facet arthropathy. DISC SPACES: Marked narrowing L4-5, L5-S1. Mild-moderate narrowing at remaining levels. PARASPINOUS: Atherosclerotic disease of aorta without appreciable aneurysm. OTHER: Negative. XR/XR lumbar spine 2-3V IMPRESSION: 1. No appreciable acute abnormality. 2. Grossly stable scoliotic curvature and moderate-marked degenerative changes of lumbar spine. Electronically authenticated by: CHETNA VIRK Date: 07/08/2024 08:46
[2024-07-08 08:54] LABS: Bilirubin Urine NEGATIVE (NEGATIVE); Blood Urine NEGATIVE (NEGATIVE); Clarity Urine CLEAR (CLEAR); Color Urine YELLOW (YELLOW); Glucose Urine UA NEGATIVE (NEGATIVE); Ketones Urine NEGATIVE (NEGATIVE); Leukocyte Esterase Urine NEGATIVE (NEGATIVE); Nitrite Urine NEGATIVE (NEGATIVE); Protein Urine NEGATIVE (NEG/TRACE); Urobilinogen Urine 0.2 EU/dL (0.2-1.0)
[2024-07-08 09:00] LABS: Bacteria Urine NONE SEEN #/HPF (NONE SEEN); Mucus Urine MODERATE (NONE SEEN); RBC Urine NONE SEEN #/HPF (0-2); Squamous Epithelial Cell Urine FEW #/LPF (NONE/RARE); WBC Urine NONE SEEN #/HPF (NONE SEEN)
[2024-07-08 09:25] VITALS: BP 142/86; PULSE 86; O2SAT 98
== END 2024-07-08 09:26 | disposition home or self-care (01) ==
PROVIDERS: Emergency Provider Emergency Medicine
DX: M54.50 Low back pain, unspecified (principal)
CPT/HCPCS: 72100; 81001; 96372; 99284; J1885; J2360

== ENCOUNTER 2024-08-21 20:44 | Outpatient (OUT) | payer OTHER, SELFPAY ==
--- OUTSIDE RECORDS SUMMARY | 2024-08-21 20:46 | XMS_ITS | CCD ---
Author Organization [facility] Inform ion Partnership [facility] Care Team Providers Care Quality Auditor Name Role Phone FARosaleeWAD, BRITT H Primary Care Unavailable DR Chetna Byers Consulting Unavailable FAWWAD, BRITT H Admitting Unavailable FAWWAD, BRITT H Attending Unavailable FAWWAD, BRITT H Consulting Unavailable FAWWAD, BRITT H Primary Care Unavailable FAWWAD, BRITT H Admitting Unavailable FAWWAD, BRITT H Attending Unavailable FAISRAELD, BRITT H Consulting Unavailable Shaikh Hahn MD Primary Care Provider ISRAEL HAHNIKH Attending Unavailable JOVANI, BRITT Attending Unavailable ALEXIS RUBALCAVA Attending Unavailable SINDHU TONG Attending UnavailSINDHU Garay Attending UnavailBahman Josue MD Primary Care Provider Sindhu Tong NP Unavailable [phone] Shaikh Hahn MD Primary Care Provider YADIEL SCOTT Attending Unavailable FAISRAELD, BRITT Referring Unavailable FAWWAD, BRITT Primary Care Unavailable YADIEL SCOTT Attending Unavailable JOVANI, BRITT Referring Unavailable FAWWAD, BRITT Primary Care Unavailable YADIEL SCOTT Attending Unavailable CESARD, BRITT Referring Unavailable FAWWAD, BRITT Primary Care Unavailable YADIEL SCOTT Attending Unavailable YADIEL SCOTT Referring Unavailable FAISRAELD, BRITT Primary Care Unavailable ROLY DICKENS Attending Unavailable ROLY DICKENS Referring [facility]available [facility] Primary Care Unavailable DICKENS, ROLY E Admitting Unavailable DICKENS, ROLY E Attending Unavailable [facility] Referring Unavailable [facility] Primary Care Unavailable YADIEL SCOTT Attending Unavailable [facility] Referring Unavailable [facility] Primary Care Unavailable DICKENS, ROLY E Attending Unavailable DICKENS, ROLY E Referring Unavailable [facility] Unavailable DICKENS, ROLY E Admitting Unavailable DICKENS, ROLY E Attending Unavailable [facility] Referring Unavailable [facility] Primary Care Unavailable NIYADIEL PADRON Attending Unavailable [facility] Referring Unavailable FAWNDD, [facility] Primary Care Unavailable DICKENS, ROLY E Attending Unavailable DICKENS, ROLY E Referring [facility]available [facility] Care Unavailable DICKENS, ROLY E Admitting Unavailable DICKENS, ROLY E Attending Unavailable [facility] Referring Un[facility] Primary Care Unavailable YADIEL SCOTT S Attending Unavailable [facility] Referring Unavailable FAWNDD, [facility] Primary Care Unavailable DICKENS, ROLY E Admitting Unavailable DICKENS, ROLY E Attending Unavailable DICKENS, ROLY E Referring Unavailable [facility] Primary Care Unavailable DICKENS, ROLY E Attending Unavailable DICKENS, ROLY E Referring Unavailable [facility] Primary Care Unavailable ZEINA SCOTT Attending Unavailable [facility] Referring Unavailable [facility] Primary Care Unavailable DICKENS, ROLY E Admitting Unavailable DICKENS, ROLY E Attending Unavailable [facility] Referring Unavailable [facility] Primary Care Unavailable YADIEL SCOTT Attending Unavailable [facility] Referring Unavailable [facility] Primary Care Unavailable MELLY RADER Attending Unavailable [facility] Primary Care Unavailable DICKENS, ROLY E Attending Unavailable DICKENS, ROLY E Referring Unavailable [facility] Primary Care Unavailable DICKENS, ROLY E Admitting Unavailable DICKENS, ROLY E Attending Unavailable [facility] Referring Unavailable [facility] Primary Care Unavailable Jovani AS[facility] Primary Care Provider [phone] Allergies Allergy Classification Reported Allergen(s) Allergy Type Date of Onset Reaction(s) Facility (1 source) bee venom Drug allergy (disorder) [facility] (1 source) Cephalexin Drug Allergy [facility] (2 sources) Codeine; Translations: [CODEINE] Drug Allergy 05-18-20 16 [facility] (1 source) moxifloxacin Drug Allergy [facility] (1 source) Sulfamethoxazole / Trimethoprim Drug Allergy [facility] (1 source) traMADol Drug Allergy [facility] (20 sources) Cephalexin Drug Allergy 11-26-19 23 Hives [facility] (20 sources) Codeine Drug Allergy 10-13-19 12 GI intolerance, Nausea Only, Nausea, Vomiting [facility] (20 sources) Mixed vespid venom Propensity to adverse reactions 11-26-19 23 GI intolerance [facility] (20 sources) moxifloxacin; Translations: [MOXIFLOXACIN] Drug Allergy 05-18-20 16 Hives, Nausea Only, Nausea, Vomiting [facility] Work Phone: (20 sources) Nitrofurantoin Drug Allergy 11-26-19 23 Hives [facility] (20 sources) Sulfamethoxazole / Trimethoprim; Translations: [SULFAMETHOXAZOLE-T RIMETHOPRIM] Drug Allergy 04-22-20 11 Hives, Rash [facility] (20 sources) traMADol; Translations: [TRAMADOL] Drug Allergy 05-18-20 16 Hives, Nausea Only, Nausea, Vomiting [facility] (20 sources) Cephalosporins (Antibiotic); Translations: [CEPHALOSPORINS] Drug Intolerance 04-19-20 12 Rash [facility] (20 sources) Honey bee venom Allergy to substance 10-13-19 12 Anaphylaxis [facility] (20 sources) Sulfamethoxazole Allergy to substance 02-11-20 20 Hives [facility] (20 sources) Trimethoprim Drug Allergy 02-11-20 20 Hives [facility] (20 sources) Moxifloxacin Hcl In Nacl Drug Intolerance 04-22-20 11 [facility] (11 sources) Cephalosporins (Antibiotic) Propensity to adverse reactions to drug 05-18-20 16 Rash [facility] (12 sources) Bee Venom Protein (Honey Bee); Translations: [BEE VENOM PROTEIN (HONEY BEE)] Propensity to adverse reactions to drug 10-13-19 12 Anaphylaxis [facility] Medications Current Medications Medication Drug Class(es) Dates Sig (Normalized) Sig (Original) acetaminophen 500 mg oral tablet (11 sources) take 2 tablets by mouth every six hours as needed for pain acetaminophen (TYLENOL) 500 mg tablet Take 2 tablets (1,000 mg total) by mouth every 6 (six) hours as needed for pain. Active [id number] actuat albuterol 0.09 mg/actuat metered dose [...] mg oral tablet (20 sources) Bisphosphonate Start: 07-25-2024 alendronate (F osamax) 35 MG tablet Indications: Osteopenia, unspecified location Take 1 tablet (35 mg) by mouth every 7 (seven) days 12 tablet 1 07/25/2024 Active Start: 02-19-2024 End: 07-25-2024 alendronate (Fosamax) 35 MG tablet Indications: Osteopenia, unspecified location Take 1 tablet (35 mg) by mouth every 7 (seven) days 12 tablet 1 02/19/2024 07/25/2024 Discontinued (Reorder) Start: 09-19-2023 End: 02-19-2024 take 1 tablet [...] tablet (10 mg total) by mouth nightly. 03/26/2016 Active ascorbic acid 1000 mg oral tablet (9 sources) Vitamin C take 1 tablet by mouth in the morning ascorbic acid, vitamin C, (VITAMIN C) 1000 mg tablet Take 1 tablet (1,000 mg total) by mouth in the morning. Active atorvastatin 20 mg oral tablet (20 sources) HMG-CoA Reductase Inhibitor Start: 05-12-20 16 End: 06-18-19 25 take 1 tablet by mouth once daily atorvastatin (Lipitor) 20 MG tablet Indications: Major depressive disorder with single episode, in full remission (CMS/HCC) Take 1 tablet (20 mg) by mouth 1 (one) time each day at the same time 90 tablet 06/18/2024 Active azithromycin 500 mg oral tablet (3 sources) Macrolide Antimicrobial Start: 05-16-20 24 End: 05-19-20 24 take 1 tablet by mouth once daily [...] 2-5. 6 tablet 0 07/17/2023 07/22/2023 Active benzonatate 100 mg oral capsule (4 [...] completed) diclofenac potassium 50 mg oral tablet (8 sources) Nonsteroidal Anti-inflammatory Drug Start: 02-29-2024 End: 07-25-2024 take 1 tablet by mouth in the morning, then take 1 tablet by mouth at bedtime diclofenac (CATAFLAM) 50 mg tablet Take 1 tablet (50 mg total) by mouth in the morning and 1 tablet (50 mg total) before bedtime. 180 tablet 04/26/2024 Active [id number] 0.3 ml EPINEPHrine 1 mg/ml auto-injector (20 sources) alpha-Adrenergic Agonist, beta-Adrenergic Agonist, Catecholamine Start: 02-19-2016 EPIPEN 2-ELLIOT 0.3 mg/0.3 mL auto-injector 02/19/2016 Active EPINEPHrine (Epi Pen 2-Elliot) 0.3 MG/0.3ML injection syringe Inject as directed 1 (one) time. Active ergocalciferol 1.25 mg oral capsule (11 sources) Provitamin D2 Compound Start: 08-23-2021 take 1 capsule by mouth every week ergocalciferol (DRISDOL) 1,250 mcg (50,000 unit) capsule Indications: Vitamin D deficiency Take 1 capsule (50,000 Units total) by mouth once a week. For 6 weeks 6 capsule 08/23/2021 Active fexofenadine hydrochloride 180 mg oral tablet (13 sources) Histamine-1 Receptor Antagonist Start: 08-24-2022 End: 07-17-2023 take 1 tablet by mouth in the morning fexofenadine (BERNIE) 180 mg tablet Take 1 tablet (180 mg total) by mouth in the morning. 08/24/2022 Active FLUoxetine 10 mg oral capsule (20 sources) Serotonin Reuptake Inhibitor Start: 01-24-2024 End: 06-18-2024 take 1 capsule by mouth once daily FLUoxetine (PROzac) 10 MG capsule Indications: Major depressive disorder with single episode, in full remission (CMS/HCC) Take 1 capsule (10 mg) by mouth Daily 90 capsule 06/18/2024 Active Start: 07-12-2021 End: 07-17-2023 take 1 capsule by mouth once daily FLUoxetine (PROzac) 20 mg capsule Take 1 capsule (20 mg total) by mouth nightly. 07/12/2021 Active take 1 capsule by [facility] in the morning FLUoxetine (PROzac) 10 MG capsule Take 10 mg by mouth in the morning. 0 Active fluticasone propionate 0.05 mg/actuat metered dose nasal spray (20 sources) Corticosteroid Start: 02-22-2022 take 1 spray(s) nasal route in the morning fluticasone (Flonase) 50 MCG/ACT nasal spray Administer 1 spray into each nostril in the morning. 02/22/2022 Active lidocaine 0.05 mg/mg medicated patch (3 sources) Antiarrhythmic, Amide Local Anesthetic Start: 01-30-2024 apply 1 dose transdermal route once daily, then apply 1 dose transdermal route every twelve hours lidocaine (LIDODERM) 5 % Indications: Disorder of sacrum Place 1 patch on the skin daily. Remove & Discard patch within 12 hours or as directed by 30 patch 01/30/2024 Active magnesium oxide 400 mg oral tablet (9 sources) take 1 tablet by mouth in [...] tablet (20 sources) Nonsteroidal Anti-inflammatory Drug Start: 08-25-2022 End: 04-16-2024 take 1 tablet by mouth once daily meloxicam (Mobic) 15 MG tablet Indications: Primary osteoarthritis of left hip , Primary osteoarthritis of right knee , Spinal stenosis of lumbar region with neurogenic claudication Take 1 tablet by mouth once daily 30 tablet 04/16/2024 Active methocarbamol 500 mg oral tablet (3 sources) Muscle Relaxant Start: 07-08-2024 End: 07-09-2024 take 1 tablet by mouth three times daily methocarbamoL (ROBAXIN) 500 mg tablet Take 1 tablet (500 mg total) by mouth 3 (three) times a day. 30 tablet 1 07/09/2024 Active methylPREDNISolone (3 sources) Corticosteroid Start: 01-30-2024 methylPREDNISolone (MEDROL, ELLIOT,) 4 mg tablet Indications: Disorder of sacrum follow package directions 21 tablet 01/30/2024 Active phentermine hydrochloride 37.5 mg oral tablet (13 sources) Sympathomimetic Amine Anorectic Start: 01-24-2024 End: 03-06-2024 take 1 tablet by mouth before mealtime phentermine (Adipex-P) 37.5 MG tablet Indications: BMI 35.0-35.9,adult Take 1 tablet (37.5 mg) by mouth in the morning. Take before meals. 30 tablet 01/24/2024 03/06/2024 Discontinued (Side effects) predniSONE 20 mg oral tablet (2 sources) Start: 05-16-2024 End: 05-21-2024 take 1 tablet by mouth once daily predniSONE (Deltasone) 20 MG tablet Indications: Upper respiratory tract infection, unspecified type Take 1 tablet (20 mg) by mouth Daily for 5 days 5 tablet 05/16/2024 05/21/2024 Active traMADol hydrochloride 50 mg oral tablet (2 sources) Opioid Agonist Start: 07-08-2024 take 1 tablet by mouth every eight hours as needed traMADoL (ULTRAM) 50 mg tablet Take 1 tablet (50 mg total) by mouth every 8 (eight) hours as needed. 07/08/2024 Active traZODone hydrochloride 50 mg oral tablet (20 sources) Serotonin Reuptake Inhibitor Start: 07-25-2024 take 1 tablet by mouth once daily traZODone (Desyrel) 50 MG tablet Indications: Major depressive disorder with single episode, in full remission (CMS/HCC) Take 1 tablet (50 mg) by mouth Daily 90 tablet 07/25/2024 Active Start: 09-28-2023 End: 07-25-2024 take 1 tablet by mouth once daily traZODone (Desyrel) 50 MG tablet Indications: Major depressive disorder with single episode, in full remission (CMS/HCC) Take 1 tablet (50 mg) by mouth Daily 90 tablet 1 05/16/2024 07/25/2024 Discontinued (Reorder) Completed/Discontinued Medications Medication Drug Class(es) Dates Sig (Normalized) Sig (Original) aspirin 81 mg delayed release oral tablet (2 sources) Platelet Aggregation Inhibitor, Nonsteroidal Anti-inflammator y Drug Start: 2 End: 4 aspirin 81 mg Indications: Primary osteoarthritis of right knee Take 1 tablet (81 mg total) by mouth 2 (two) times a day. To begin taking day one following your joint replacement 60 tablet 08/06/2021 10/03/2023 Discontinued (Ineffective) baclofen 10 mg oral tablet (6 sources) gamma-Aminobutyr ic Acid-ergic Agonist Start: 4 End: 5 take 0.5 tablet by mouth three times daily baclofen (LIORESAL) 10 mg tablet Indications: Disorder of sacrum Take 0.5 tablets (5 mg total) by mouth 3 (three) times a day. 90 tablet 01/30/2024 07/09/2024 Discontinued hydroCHLOROthiazide 12.5 mg oral tablet (20 sources) Thiazide Diuretic Start: 4 End: 5 take 1 tablet by mouth once daily hydroCHLOROthiazide (HYDRODiuril) 12.5 MG tablet Indications: Primary hypertension (CMS/HCC) Take 1 tablet by mouth once daily 30 tablet 3 05/02/2024 08/01/2024 Discontinued (Reorder) 24 hr nicotine 0.875 mg/hr transdermal system (2 sources) Cholinergic Nicotinic Agonist Start: 3 End: 4 nicotine (NICODERM CQ) 21 mg/24 hr 03/15/2023 10/03/2023 Discontinued (Ineffective) Start: 03-15-2023 apply 1 dose transde rmal route every twenty-four hours nicotine (NICODERM CQ) 21 mg/24 hr APPLY 1 PATCH TOPICALLY EVERY 24 HOURS 0 03/15/2023 Active Problems Active Problems Problem Classification Problem Date Documented Da te Episodic/Chronic Disorders of lipid metabolism (20 sources) [...] pathological fracture] Onset: 03-19-2018 07-17-2023 Chronic Other bone disease and musculoskeletal deformities (2 sources) Osteopenia; Translations: [Other specified disorders of bone density and structure, unspecified site] 02-19-2024 Episodic Other connective tissue disease (20 sources) History of total knee arthroplasty; Translations: [Presence of right artificial knee joint] Onset: 10-27-2021 07-17-2023 Chronic Other non-traumatic joint disorders (1 source) Hip pain Onset: 07-09-2024 Episodic Other nutritional; endocrine; and metabolic disorders (20 sources) Body mass index 30+ - obesity; Translations: [Body mass index (BMI) 35.0-35.9, adult] Onset: 01-24-2024 01-24-2024 Chronic Other upper respiratory disease (20 sources) Seasonal allergy; Translations: [Other seasonal allergic [...] Spondylosis; intervertebral disc disorders; other back problems (4 sources) Other intervertebral disc degeneration, lumbar region; Translations: [Lumbosacral spondylosis without myelopathy] Onset: 05-29-2022 07-09-2024 Chronic Thyroid disorders (1 source) Congenital hypothyroidism with diffuse goiter; Translations: [CONGEN HYPOTHYROIDISM W/DIF GOITER] Onset: 11-18-2021 Chronic Unclassified (3 sources) LOW BACK PAIN, UNSPECIFIED; Translations: [LOW BACK PAIN, UNSPECIFIED] Onset: 05-29-2022 Unclassified (1 source) Primary osteoarthritis of left hip [M16.12] Onset: 06-21-2024 Past or Other Problems Problem Classification Problem Date Documented Da te Episodic/Chronic Abdominal pain (11 sources) Right flank pain; Translations: [Unspecified abdominal pain] Onset: 03-19-2018 03-19-2018 Episodic Diabetes mellitus without complication (1 source) Other abnormal glucose; Translations: [OTHER ABNORMAL GLUCOSE] Onset: 11-18-2021 Episodic Genitourinary symptoms and ill-defined conditions (11 sources) Blood in urine; Translations: [Hematuria, unspecified] Onset: 03-19-2018 03-19-2018 Episodic Other lower respiratory disease (20 sources) Respiratory tract infection; Translations: [Other specified respiratory disorders] Onset: 10-04-2023 10-04-2023 Episodic Other upper respiratory infections (20 sources) Acute upper respiratory infection; Translations: [Acute upper respiratory infection, unspecified] Onset: 07-17-2023 07-17-2023 Episodic Otitis media and related conditions (20 sources) Acute suppurative otitis media without spontaneous [...] with neurogenic claudication] Onset: 09-08-2022 07-17-2023 Episodic Unclassified (1 source) LOW BACK PAIN, UNSPECIFIED; Translations: [LOW BACK PAIN, UNSPECIFIED] Onset: 05-25-2022 Results Test Name Value Interpretation Reference Range Facility XR HIP LT 2-3 VIEWS W OR WO PELVISon 07-10-2024 XR HIP LT 2-3 VIEWS W OR WO PELVIS XR HIP LT 2-3 VIEWS W OR WO PELVIS XR HIP LT 2-3 VIEWS W OR WO PELVIS Primary osteoarthritis of left hip Findings: There is no fracture or destructive lesion. Impression: * No acute findings. No significant arthritic findings of the hips. No measurable joint space narrowing currently. Note is made of severe disc disease at the lower lumbar spine. Findings are similar to July 01, 2022. * Consider MRI if you suspect occult process. Finalized by Ernst Mackenzie MD on 07/10/2024 10:39 AM Normal [facility] XR LSPINE MIN 4 VIEWSon 05-12 XR [...] arthropathy; not visibly changed. Electronically authenticated by: CHETNA BYERS Date: 2022-05-25 23:28 Normal [facility] CBC AUTO DIFFon 11-12-2021 BASO # 0.0 103/ul Normal 0.0-0.1 [facility] Comment on above: Performed By: #### C BC #### [facility] [address] [address] [address] Mary Solano Basophils/100 WBC (Bld) 0.6 % Normal 0.2-2.0 [facility] Comment on above: Performed By: #### C BC #### [facility] [address] [address] [address] Mary Solano EO # 0.1 103/ul Normal 0.0-0.7 [facility] Comment on above: Performed By: #### C BC #### [facility] [address] [address] [address] Mary Solano Eosinophils/100 WBC (Bld) 1.9 % Normal 0.9-7.0 [facility] Comment on above: Performed By: #### C BC #### [facility] [address] [address] [address] Mary Solano Erythrocyte distribution width (RBC) [Ratio] 14.0 % Normal 11.0-15.0 [facility] Comment on above: Performed By: #### C BC #### [facility] [address] [place] [address] Dr. Mary Solano Hematocrit (Bld) [Volume fraction] 44.4 % Normal 36.0-48.0 [facility] Comment on above: Performed By: #### C BC #### [facility] [address] [place] [address] Dr. Mary Solano Hemoglobin (Bld) [Mass/Vol] 14.3 g/dL Normal 12.0-16.0 [facility] Comment on above: Performed By: #### C BC #### [facility] [address] [place] [address] Dr. Mary Solano IG # 0.02 10e3/ul Normal 0.00-0.03 [facility] Comment on above: Performed By: #### C BC #### [facility] [address] [place] [address] Dr. Mary Solano IG % 0.3 % Normal 0.0-0.5 [facility] Comment on above: Performed By: #### C BC #### [facility] [address] [place] [address] Dr. Mary Solano LYMPH # 2.1 103/ul Normal 1.2-3.8 [facility] Comment on above: Performed By: #### C BC #### [facility] [address] [place] [address] Dr. Mary Solano Lymphocytes/100 WBC (Bld) 30.1 % Normal 20.5-60.0 [facility] Comment on above: Performed By: #### C BC #### [facility] [address] [place] [address] Dr. Mary Solano MANUAL DIFF REQ NO Normal [facility] Comment on above: Performed By: #### C BC #### [facility] [address] [place] [address] Dr. Mary Solano MCH (RBC) [Entitic mass] 29.3 pg Normal 26.7-34.0 [facility] Comment on above: Performed By: #### C BC #### [facility] [address] [place] [address] Dr. Mary Solano MCHC (RBC) [Mass/Vol] 32.2 g/dL Normal 29.9-35.2 [facility] Comment on above: Performed By: #### C BC #### [facility] [address] [place] [address] Dr. Mary Solano MCV (RBC) [Entitic vol] 91.0 fL Normal 81.0-99.0 [facility] Comment on above: Performed By: #### C BC #### [facility] [address] [place] [address] Dr. Mary Solano MONO # 0.6 103/ul Normal 0.3-0.8 [facility] Comment on above: Performed By: #### C BC #### [facility] [address] [place] [address] Dr. Mary Solano Monocytes/100 WBC (Bld) 8.9 % Normal 1.7-12.0 [facility] Comment on above: Performed By: #### C BC #### [facility] [address] [place] [address] Dr. Mary Solano NEUT # 4.0 103/ul Normal 1.4-6.5 [facility] Comment on above: Performed By: #### C BC #### [facility] [address] [place] [address] Dr. Mary Solano Neutrophils/100 WBC (Bld) 58.2 % Normal 43.0-75.0 [facility] Comment on above: Performed By: #### C BC #### [facility] [address] [place] [address] Dr. Mary Solano Platelet mean volume (Bld) [Entitic vol] 8.8 fL Critically low 9.5-13.5 [facility] Comment on above: Performed By: #### C BC #### [facility] [address] [address] [address] Mary Solano PLT 372 103/ul Normal 150-450 [facility] Comment on above: Performed By: #### C BC #### [facility] [address] [place] [address] Dr. Mary Solano RBC 4.88 106/ul Normal 4.20-5.40 [facility] Comment on above: Performed By: #### C BC #### [facility] [address] [place] [address] Dr. Mary Solano WBC 6.8 103/ul Normal 4.0-11.0 [facility] Comment on above: Performed By: #### C BC #### [facility] [address] [place] [address] Dr. Mary Solano GLYCOHEMOGLOBIN A1Con 2021 ADA RECOMMENDATION SEE BELOW Normal [facility] Comment on above: Result Comment: ADA RECOMMENDED LIMIT 4.0 - 6.0 ADA THERAPEUTIC TARGET < 7.0 ACTION SUGGESTED > 7.0 Performed By: #### A 1C #### [facility] [address] [place] [address] Dr. Mary Solano Glucose [Mass/Vol] 117 mg/dL Normal [facility] Comment on above: Performed By: #### A 1C #### [facility] [address] [place] [address] Dr. Mary Solano HbA1c (Bld) [Mass fraction] 5.7 % Normal 4.5-6.2 [facility] Comment on above: Performed By: #### A 1C #### [facility] [address] [place] [address] Dr. Mary Solano LIPID PROFILEon 11-12-2021 CHOL-HDL RATIO NORM SEE BELOW Normal [facility] Comment on above: Result Comment: 3.3 - 4.4 LOW RISK 4.4 - 7.1 AVERAGE RISK 7.1 - 11.0 MODERATE RISK >11.0 HIGH RISK Performed By: #### C MP, LIPID #### [facility] [address] [place] [address] Dr. Mary Solano Cholesterol [Mass/Vol] 197 mg/dL Normal <=200 [facility] Comment on above: Performed By: #### C MP, LIPID #### [facility] [address] [address] [address] Mary Solano Cholesterol in HDL [Mass/Vol] 49 mg/dL Normal 40-60 [facility] Comment on above: Performed By: #### C MP, LIPID #### [facility] [address] [address] [address] Mary Solano Cholesterol in LDL [Mass/Vol] 124.4 mg/dL Normal [facility] Comment on above: Performed By: #### C MP, LIPID #### [facility] [address] [address] [address] Mary Solano Cholesterol.total/Cho lesterol in HDL [Mass ratio] 4.0 {ratio} Normal [facility] Comment on above: Performed By: #### C MP, LIPID #### [facility] [address] [address] [address] Mary Solano HDL NORMAL > or = 60 mg/dl - LOW CARDIOVASCULAR RISK <40 mg/dl - HIGH CARDIOVASCULAR RISK Normal [facility] Comment on above: Performed By: #### C MP, LIPID #### [facility] [address] [address] [address] Mary Solano LDL CALC NORMAL SEE BELOW Normal [facility] Comment on above: Result Comment: <100 mg/dl OPTIMAL 100 - 129 mg/dl NEAR OR ABOVE OPTIMAL 130 - 159 mg/dl BORDERLINE HIGH 160 - 189 mg/dl HIGH >190 mg/dl VERY HIGH Performed By: #### C MP, LIPID #### [facility] [address] [address] [address] Mary Solano Triglyceride [Mass/Vol] 118 mg/dL Normal <=150 [facility] Comment on above: Performed By: #### C MP, LIPID #### [facility] [address] [address] [address] Mary Solnao VLDL CALC 23.6 mg/dL Normal [facility] Comment on above: Performed By: #### C MP, LIPID #### [facility] [address] [address] [address] Mary Solano PROF 14(COMP METB)on 022 Albumin [Mass/Vol] 3.8 g/dL Normal 3.4-5.0 [facility] Comment on above: Performed By: #### C MP, LIPID #### [facility] [address] [place] [address] Dr. Mary Solano Albumin/Globulin [Mass ratio] 1.1 {ratio} Normal [facility] Comment on above: Performed By: #### C MP, LIPID #### [facility] [address] [place] [address] Dr. Mary Solano ALP [Catalytic activity/Vol] 136 U/L Critically high 46-116 [facility] Comment on above: Performed By: #### C MP, LIPID #### [facility] [address] [place] [address] Dr. Mary Solano ALT [Catalytic activity/Vol] 20 U/L Normal 14-59 [facility] Comment on above: Performed By: #### C MP, LIPID #### [facility] [address] [place] [address] Dr. Mary Solano Anion gap [Moles/Vol] 12.1 mmol/L Normal [facility] Comment on above: Performed By: #### C MP, LIPID #### [facility] [address] [place] [address] Dr. Mary Solano AST [Catalytic activity/Vol] 14 U/L Critically low 15-37 [facility] Comment on above: Performed By: #### C MP, LIPID #### [facility] [address] [place] [address] Dr. Mary Solano Bilirubin [Mass/Vol] 0.3 mg/dL Normal 0.2-1.0 [facility] Comment on above: Performed By: #### C MP, LIPID #### [facility] [address] [place] [address] Dr. Mary Solano Calcium [Mass/Vol] 9.3 mg/dL Normal 8.5-10.1 [facility] Comment on above: Performed By: #### C MP, LIPID #### [facility] [address] [address] [address] Mary Solano Chloride [Moles/Vol] 102 mmol/L Normal 98-107 [facility] Comment on above: Performed By: #### C MP, LIPID #### [facility] [address] [address] [address] Mary Solano CO2 [Moles/Vol] 29.0 mmol/L Normal 21.0-32.0 [facility] Comment on above: Performed By: #### C MP, LIPID #### [facility] [address] [place] [address] Dr. Mary Solano Creatinine [Mass/Vol] 0.64 mg/dL Normal 0.55-1.02 [facility] Comment on above: Performed By: #### C MP, LIPID #### [facility] [address] [place] [address] Dr. Mary Solano EGFR-AF SALVADOREAN >60 Normal >=60 [facility] Comment on above: Performed By: #### C MP, LIPID #### [facility] [address] [place] [address] Dr. Mary Solano EGFR-NON AF SALVADOREAN >60 Normal >=60 [facility] Comment on above: Performed By: #### C MP, LIPID #### [facility] [address] [place] [address] Dr. Mary Solano Globulin (S) [Mass/Vol] 3.4 g/dL Normal [facility] Comment on above: Performed By: #### C MP, LIPID #### [facility] [address] [place] [address] Dr. Mary Solano Glucose [Mass/Vol] 94 mg/dL Normal 74-106 [facility] Comment on above: Performed By: #### C MP, LIPID #### [facility] [address] [place] [address] Dr. Mary Solano Potassium [Moles/Vol] 4.1 mmol/L Normal 3.5-5.1 [facility] Comment on above: Performed By: #### C MP, LIPID #### [facility] [address] [address] [address] Mary Solano Protein [Mass/Vol] 7.2 g/dL Normal 6.4-8.2 [facility] Comment on above: Performed By: #### C MP, LIPID #### [facility] [address] [address] [address] Mary Solano Sodium [Moles/Vol] 139 mmol/L Normal 136-145 [facility] Comment on above: Performed By: #### C MP, LIPID #### [facility] [address] [address] [address] Mary Solano Urea nitrogen [Mass/Vol] 14.0 mg/dL Normal 7.0-18.0 [facility] Comment on above: Performed By: #### C MP, LIPID #### [facility] [address] [address] [address] Mary Solano Urea nitrogen/Creatinine [Mass ratio] 21.9 mg/mg Normal [facility] Comment on above: Performed By: #### C MP, LIPID #### [facility] [address] [address] [address] Mary Solano Reminderson 06-07-2019 Reminders - From: Tati Mcdonald MA To: EU - Clinical; Sent: 05/22/2019 09:03:06 EST Show up: 06/03/2019 07:00:00 EST Subject: Ambulatory Reminder Due Date/Time: 06/05/2019 07:00:00 EST Reminder/Recall FISH/Cytology done 05/22/19 due to gross hematuria done, results negative, in patients chart Normal [facility] Vital Signs Date Time Vital Sign Value Performing Clinician Facility 07-09-2024 12:59-0500 Diastolic blood pressure 79 mm[Hg] Yadiel MUNGUIA Work Phone: [facility] 07-09-2024 12:59-0500 Heart rate 69 /min Yadiel MUNGUIA Work Phone: [facility] 07-09-2024 12:59-0500 Respiratory rate 18 /min [facility] 07-09-2024 12:59-0500 SaO2% (BldA) [Mass fraction] 97 % Yadiel Nienberg PA Work Phone: [facility] [employer] [facility] 07-09-2024 12:59-0500 Systolic blood pressure 117 mm[Hg] Yadiel Nienberg PA Work Phone: [facility] [employer] [facility] 05-23-2024 10:11-0500 Body height 162.6 cm Yadiel Nienberg PA Work Phone: [facility] [employer] 05-23-2024 10:11-0500 Body mass index (BMI) [Ratio] 34.33 kg/m2 Yadiel Nienberg PA Work Phone: [facility] [employer] [facility] 05-23-2024 10:11-0500 Body weight 90.72 kg Yadiel Nienberg PA Work Phone: [facility] [facility] 05-23-2024 10:11-0500 Diastolic blood pressure 70 mm[Hg] Yadiel Nienberg PA Work Phone: [facility] [facility] 05-23-2024 10:11-0500 Heart rate 64 /min Yadiel Nienberg PA Work Phone: [facility] 05-23-2024 10:11-0500 Respiratory rate 18 /min Yadiel Nienberg PA Work Phone: [facility] 05-23-2024 10:11-0500 SaO2% (BldA) [Mass fraction] 98 % Yadiel Nienberg PA Work Phone: [facility] [facility] 05-23-2024 10:11-0500 Systolic blood pressure 134 mm[Hg] Yadiel Nienberg PA Work Phone: [facility] [employer] [facility] 05-16-2024 09:15-0500 Body mass index (BMI) [Ratio] 33.3 kg/m2 Sindhu Tong NP Work Phone: [facility] 05-16-2024 09:15-0500 Body temperature 97.39 [degF] Sindhu Almarazk [employer]STITCH P[employer] SETTER Work Phone: [facility] 05-16-2024 09:15-0500 Body weight 88 kg Sindhu Altamiranotrick LOCKSTITCH POCKET SETTER Work Phone: [facility] 05-16-2024 09:15-0500 Diastolic blood pressure 76 mm[Hg] Sindhu Altamiranotrick LOCKSTITCH POCKET SETTER Work Phone: [facility] 05-16-2024 09:15-0500 Heart rate 60 /min Sindhu Altamiranotrick L[employer]STITCH POCKET SETTER Work Phone: [facility] 05-16-2024 09:15-0500 SaO2% (BldA) [Mass fraction] 100 % Sindhu Almarazk LOCKSTITCH POCKET SETTER Work Phone: [facility] 05-16-2024 09:15-0500 Systolic blood pressure 132 mm[Hg] Sindhu Almarazk LOCKSTITCH POCKET SETTER Work Phone: [facility] 04-09-2024 09:55-0400 Body height 162.6 cm Yadiel Scott PA Work Phone: [facility] 04-09-2024 09:55-0400 Body mass index (BMI) [Ratio] 34.5 kg/m2 Yadiel Scott PA Work Phone: [facility] 04-09-2024 09:55-0400 Body weight 91.17 kg Yadiel Scott PA Work Phone: [facility] 04-09-2024 09:55-0400 Diastolic blood pressure 73 mm[Hg] Yadiel Scott PA Work Phone: [facility] 04-09-2024 09:55-0400 Heart rate 70 /min Yadiel Scott PA Work Phone: [facility] 04-09-2024 09:55-0400 Respiratory rate 18 /min Yadiel Scott PA Work Phone: [facility] 04-09-2024 09:55-0400 SaO2% (BldA) [Mass fraction] 98 % Yadiel Scott PA Work Phone: [facility] 04-09-2024 09:55-0400 Systolic blood pressure 130 mm[Hg] Yadiel Scott PA Work Phone: [facility] 02-29-2024 08:39-0400 Body mass index (BMI) [Ratio] 34.5 kg/m2 Yadiel Scott PA Work Phone: [facility] 02-29-2024 08:39-0400 Body weight 91.17 kg Yadiel Scott PA Work Phone: [facility] 02-29-2024 08:39-0400 Diastolic blood pressure 81 mm[Hg] Yadiel Scott PA Work Phone: [facility] 02-29-2024 08:39-0400 Heart rate 67 /min Yadiel Scott PA Work Phone: [facility] 02-29-2024 08:39-0400 Respiratory rate 16 /min Yadiel Nienberg PA Work Phone: [facility] 02-29-2024 08:39-0400 SaO2% (BldA) [Mass fraction] 98 % Yadiel Scott PA Work Phone: [facility] 02-29-2024 08:39-0400 Systolic blood pressure 137 mm[Hg] Yadiel Scott PA Work Phone: [facility] 02-22-2024 10:35-0400 Body height 162.6 cm Sindhu Tong L[employer]STITCH POCKET SETTER Work Phone: [facility] 02-22-2024 10:35-0400 Body mass index (BMI) [Ratio] 34.33 kg/m2 Sindhu Tong L[employer]STITCH POCKET SETTER Work Phone: [facility] 02-22-2024 10:35-0400 Body temperature 97.39 [degF] Sindhu Tong L[employer]STITCH POCKET SETTER Work Phone: [facility] 02-22-2024 10:35-0400 Body weight 90.72 kg Sindhu Almarazk LOCKSTITCH POCKET SETTER Work Phone: [facility] 02-22-2024 10:35-0400 Diastolic blood pressure 70 mm[Hg] Sindhu Tong L[employer]STITCH POCKET SETTER Work Phone: [facility] 02-22-2024 10:35-0400 Heart rate 74 /min Sindhu Martinezpatrick LOCKSTITCH POCKET SETTER Work Phone: [facility] Comment on above: 94% O2 02-22-2024 10:35-0400 Systolic blood pressure 118 mm[Hg] Sindhu Martinezpatrick LOCKSTITCH POCKET SETTER Work Phone: [facility] 01-30-2024 13:41-0400 Body height 162.6 cm Zeina Ennisenberg [employer] WEBSITE DEVELOPER[employer] Work Phone: [facility] 01-30-2024 13:41-0400 Body mass index (BMI) [Ratio] 35.02 kg/m2 Zeina Nienberg [employer] WEBSITE DEVELOPER[employer] Work Phone: [facility] 01-30-2024 13:41-0400 Body weight 92.53 kg Zeina Nienberg PHP WEBSITE DEVELOPER-[employer] WORK[employer] Work Phone: [facility] 01-30-2024 13:41-0400 Diastolic blood pressure 79 mm[Hg] Zeina Nienberg PHP WEBSITE DEVELOPER-[employer] WORK[employer] Work Phone: [facility] 01-30-2024 13:41-0400 Heart rate 71 /min Zeina Nienberg PHP WEBSITE DEVELOPER[employer] WORK[employer] Work Phone: [facility] 01-30-2024 13:41-0400 Respiratory rate 18 /min Zeina Lolienberg PHP WEBSITE DEVELOPER-[employer] WORK[employer] Work Phone: [facility] 01-30-2024 13:41-0400 SaO2% (BldA) [Mass fraction] 96 % Zeina Nienberg PHP WEBSITE DEVELOPER[employer] WORK[employer] Work Phone: [facility] [facility] 01-30-2024 13:41-0400 Systolic blood pressure 143 mm[Hg] Zeina Scott PHP WEBSITE DEVELOPER[employer] WORK[employer] Work Phone: [facility] 12-28-2023 14:46-0400 Body height 162.6 cm Yadiel Sonia PA Work Phone: [facility] 12-28-2023 14:46-0400 Body mass index (BMI) [Ratio] 35.02 kg/m2 Yadiel Nienberg PA Work Phone: [facility] 12-28-2023 14:46-0400 Body weight 92.53 kg Yadiel Nienberg PA Work Phone: [facility] 12-28-2023 14:46-0400 Diastolic blood pressure 72 mm[Hg] Yadiel Nienberg PA Work Phone: [facility] 12-28-2023 14:46-0400 Heart rate 68 /min Yadiel Ennisenberg PA Work Phone: [facility] 12-28-2023 14:46-0400 Respiratory rate 16 /min Yadiel Nienberg PA Work Phone: [facility] 12-28-2023 14:46-0400 SaO2% (BldA) [Mass fraction] 96 % Yadiel Nienberg PA Work Phone: [facility] [facility] 12-28-2023 14:46-0400 Systolic blood pressure 128 mm[Hg] Yadiel Ennisenberg PA Work Phone: [facility] 10-03-2023 09:52-0400 Diastolic blood pressure 69 mm[Hg] Yadiel Nienberg PA Work Phone: [facility] [facility] 10-03-2023 09:52-0400 Heart rate 67 /min Yadiel Nienberg PA Work Phone: [facility] [facility] 10-03-2023 09:52-0400 Respiratory rate 20 /min Yadiel Nienberg PA Work Phone: [facility] 10-03-2023 09:52-0400 Systolic blood pressure 129 mm[Hg] Yadiel Scott PA Work Phone: [facility] 08-24-2023 09:25-0400 Body height 162.6 cm Yadiel Scott PA Work Phone: [facility] 08-24-2023 09:25-0400 Body mass index (BMI) [Ratio] 33.13 kg/m2 Yadiel Scott PA Work Phone: [facility] 08-24-2023 09:25-0400 Body weight 87.54 kg Yadiel Scott PA Work Phone: [facility] 08-24-2023 09:25-0400 Diastolic blood pressure 75 mm[Hg] Yadiel Scott PA Work Phone: [facility] 08-24-2023 09:25-0400 Heart rate 58 /min Yadiel Scott PA Work Phone: [facility] 08-24-2023 09:25-0400 Respiratory rate 14 /min Yadiel Scott PA Work Phone: [facility] 08-24-2023 09:25-0400 SaO2% (BldA) [Mass fraction] 98 % Yadiel Scott PA Work Phone: [facility] 08-24-2023 09:25-0400 Systolic blood pressure 137 mm[Hg] Yadiel Scott PA Work Phone: [facility] 07-17-2023 09:00-0500 Body height 162.6 cm Shaikh Jovani ASKEW Work Phone: [facility] 07-17-2023 09:00-0500 Body mass index (BMI) [Ratio] 33.23 kg/m2 Shaikh Jovani ASKEW Work Phone: [facility] 07-17-2023 09:00-0500 Body temperature 98.1 [degF] Shaikh Jovani ASKEW Work Phone: [facility] 07-17-2023 09:00-0500 Body weight 87.82 kg Shaikh Jovani ASKEW Work Phone: [facility] 07-17-2023 09:00-0500 Diastolic blood pressure 78 mm[Hg] Shaikh Jovani ASKEW Work Phone: [facility] 07-17-2023 09:00-0500 Heart rate 66 /min Shaikh Jovani ASKEW Work Phone: [facility] 07-17-2023 09:00-0500 Respiratory rate 17 /min Shaikh Jovani ASKEW Work Phone: [facility] 07-17-2023 09:00-0500 SaO2% (BldA) [Mass fraction] 96 % Shaikh Jovani ASKEW Work Phone: [facility] 07-17-2023 09:00-0500 Systolic blood pressure 130 mm[Hg] Shaikh Jovani ASKEW Work Phone: [facility] Healthcare Encounters Encounter Date Encounter Type Care Provider Facility Start: 08-01-2024 End: 08-01-2024 Refill Diana Becker MA [facility] Comment on above: Primary hypertension ([facility]) Start: 07-25-2024 End: 07-25-2024 Refill Sindhu Tong NP Work Phone: [facility] Comment on above: Osteopenia, unspecif ied location; Major depressive disorder with single episode, in full remission (CMS/HCC) Start: 07-09-2024 End: 07-09-2024 Office outpatient visit 15 minutes Yadiel MUNGUIA Work Phone: [facility] Comment on above: Primary osteoarthrit is of left hip (Primary Dx); Lumbosacral spondylosis without myelopathy Start: 07-09-2024 End: 07-09-2024 ambulatory YADIEL SCOTT [facility] Start: 06-21-2024 End: 06-21-2024 ambulatory [facility] Start: 06-18-2024 End: 06-18-2024 Refill Sindhu Tong [employer] P[employer] SETTER Work Phone: [facility] Comment on above: Major depressive dis order with single episode, in full remission ([facility]/HCC) Start: 05-23-2024 End: 05-23-2024 Refill Sindhu Tong L[employer]STITCH POCKET SETTER Work Phone: [facility] Comment on above: Tobacco abuse Tobacco abuse; Major depressive disorder with single episode, in full remission ([facility]/HCC) Start: 05-23-2024 End: 05-23-2024 Office outpatient visit 25 minutes Yadiel Scott PA Work Phone: [facility] Comment on above: Primary osteoarthrit is of left hip (Primary Dx) Start: 05-23-2024 End: 05-23-2024 ambulatory YADIEL Harvey VITO [facility] Start: 05-16-2024 End: 05-16-2024 Bamboo flowsheet Sindhu Tong LOCKSTITCH POCKET SETTER Work Phone: [facility] Start: 05-16-2024 End: 05-16-2024 Bamboo flowsheet Sindhu Tong L[employer]STITCH POCKET SETTER Work Phone: [facility] Start: 05-16-2024 End: 05-16-2024 Office outpatient visit 10 minutes Sindhu Tong [employer]STITCH POCK[employer] SETTER Work Phone: [facility] Comment on above: Upper respiratory tr act infection, unspecified type (Primary Dx); Major depressive disorder with single episode, in full remission ([facility]/HCC); URTI (acute upper respiratory infection) Start: 05-02-2024 End: 05-02-2024 Refill Sindhu Tong L[employer]STITCH POCKET SETTER Work Phone: [facility] Comment on above: Primary hypertension ([facility]/HCC) Start: 04-26-2024 End: 04-26-2024 ambulatory [facility] Start: 04-16-2024 End: 04-16-2024 Refill Sindhu Martinezpatrick [employer]STITCH POCK[employer] SETTER Work Phone: [facility] Comment on above: Primary osteoarthrit is of left hip; Primary osteoarthritis of right knee; Spinal stenosis of lumbar region with neurogenic claudication Start: 04-09-2024 End: 04-09-2024 Office outpatient visit 15 minutes Yadiel MUNGUAI Work Phone: [facility] Comment on above: Disorder of sacrum ( Primary Dx) Start: 04-09-2024 End: 04-09-2024 Refill Diana Becker MA [facility] Comment on above: Major depressive dis order with single episode, in full remission (CMS/HCC) Start: 04-04-2024 End: 04-04-2024 Refill Sindhu Giordanozpatrick L[employer]STITCH POCKET SETTER Work Phone: [facility] Comment on above: Primary hypertension (CMS/HCC) Start: 03-22-2024 End: 03-22-2024 ambulatory [facility] Start: 03-15-2024 End: 03-18-2024 Refill Sindhu Altamiranotrick L[employer]STITCH POCKET SETTER Work Phone: [facility] Comment on above: Primary osteoarthrit is of left hip; Primary osteoarthritis of right knee; Spinal stenosis of lumbar region with neurogenic claudication Start: 03-14-2024 End: 03-14-2024 Orders Only Sindhu Tong L[employer]STITCH POCKET SETTER Work Phone: [facility] Comment on above: Obstructive sleep ap emily syndrome (Primary Dx) Start: 03-06-2024 End: 03-06-2024 Orders Only Sindhu Tong L[employer]STITCH POCKET SETTER Work Phone: [facility] Comment on above: Primary hypertension (CMS/HCC) (Primary Dx) Start: 02-29-2024 End: 02-29-2024 Office outpatient visit 25 minutes Yadiel MUNGUIA Work Phone: [phone] [place] [address] - [facility] Comment on above: Spinal stenosis of l umbar region with neurogenic claudication (Primary Dx) Start: 02-29-2024 End: 02-29-2024 ambulatory YADIEL Gabriel VITO [facility] Start: 02-22-2024 End: 02-22-2024 Office outpatient visit 10 minutes Sindhu Almarazk L[employer]STITCH POCK[employer] SETTER Work Phone: [facility] Comment on above: Hypersomnia with sle ep apnea (Primary Dx); Obstructive sleep apnea syndrome Start: 02-22-2024 End: 02-22-2024 ambulatory SINDHU TONG Not Available Start: 02-20-2024 End: 02-20-2024 Refill Sindhu Tong [employer]ITCH POCK[employer] SETTER Work Phone: [facility] Comment on above: Tobacco abuse Start: 02-19-2024 End: 02-19-2024 Refill Sindhu Altamiranotrick L[employer]STITCH POCKET SETTER Work Phone: [facility] Comment on above: Osteopenia, unspecif ied location Start: 02-09-2024 End: 02-09-2024 ambulatory [facility] Start: 01-30-2024 End: 01-30-2024 Telephone encounter Zeina Scott [employer] WEBSITE DEVELOPER[employer] WORK[employer] Work Phone: [facility] Start: 01-30-2024 End: 01-30-2024 Office outpatient visit 15 minutes Zeina Scott PHP WEBSITE DEVELOPER[employer] WORK[employer] Work Phone: [facility] Comment on above: Disorder of sacrum ( Primary Dx) Start: 01-30-2024 End: 01-30-2024 ambulatory [facility] Start: 01-24-2024 End: 01-24-2024 ambulatory SINDHU TONG Not Available Start: 01-12-2024 End: 01-12-2024 ambulatory [facility] Start: 12-28-2023 End: 12-28-2023 Office outpatient visit 15 minutes Yadiel MUNGUIA Work Phone: [facility] Comment on above: Disorder of sacrum ( Primary Dx) Start: 12-28-2023 End: 12-28-2023 ambulatory [facility] Start: 11-30-2023 End: 11-30-2023 ambulatory ALEXIS ARPIT Not Available Start: 10-04-2023 End: 10-04-2023 ambulatory SHAIKH JOVANI Not Available Start: 10-03-2023 End: 10-03-2023 Office outpatient visit 15 minutes Yadiel MUNGUIA Work Phone: [facility] Comment on above: Lumbosacral spondylo sis without myelopathy (Primary Dx) Start: 10-03-2023 End: 10-03-2023 ambulatory [facility] Start: 09-16-2023 End: 09-16-2023 ambulatory MELLY Gabriel DIOR [facility] Start: 09-15-2023 End: 09-15-2023 ambulatory ROLY Hazel DICKENS [facility] Start: 08-24-2023 End: 08-24-2023 Office outpatient visit 15 minutes Yadiel MUNGUIA Work Phone: [facility] Comment on above: Disorder of sacrum ( Primary Dx) Start: 08-24-2023 End: 08-24-2023 ambulatory [facility] Start: 07-17-2023 Isaiah Hahn MD Work Phone: [...] abuse Start: 07-17-2023 End: 07-17-2023 ambulatory SHAIKH DELROYCAMERON Not Available Start: 05-25-2022 End: 05-26-2022 ambulatory SHAIKH Truman POTTSCAMERON Facility:[facility] Start: 11-12-2021 End: 11-13-2021 ambulatory SHAIKH Truman POTTSCAMERON Facility: Procedures Date Procedure Procedure Detail Performing Clinician Start: 01-29-2024 Mammography Sindhu sandoval NP Work Phone: Start: 11-30-2023 Microscopic observat ion [Identifier] in Cervix by Cyto stain Sindhu Tong NP Work Phone: Start: 02-12-2023 Mammography Shaikh Delroy franco MD Work Phone: Start: 11-18-2021 Mammography Shaikh Delroy franco MD Work Phone: Plan of Treatment Date Care Activity Detail Author Start: 06-07-2034 DTaP,Tdap and Td Vaccines (3 - Td or Tdap) DTaP,Tdap and Td Vaccines (3 - Td or Tdap) [facility] Start: 12-07-2027 Screening for malign ant neoplasm of cervix [facility] Start: 11-29-2026 Screening for malign ant neoplasm of cervix Pap Smear [facility] Start: 07-09-2025 Tobacco Screening Tobacco Screening [facility] Start: 05-23-2025 Adult BMI Screening Adult BMI Screen [facility] Start: 05-23-2025 Tobacco Screening Tobacco Screening [facility] Start: 04-26-2025 Tobacco Screening Tobacco Screening [facility] Start: 04-09-2025 Adult BMI Screening Adult BMI Screen ing [facility] Start: 04-09-2025 Tobacco Screening Tobacco Screening [facility] Start: 03-09-2025 Screening for malign ant neoplasm of colon [facility] Start: 02-28-2025 Adult BMI Screening Adult BMI Screen ing [facility] Start: 02-28-2025 Tobacco Screening Tobacco Screening [facility] Start: 01-28-2025 Screening for malign ant neoplasm of breast Mammogram [facility] Start: 12-27-2024 Adult BMI Screening Adult BMI Screen ing [facility] Start: 12-27-2024 Tobacco Screening Tobacco Screening [facility] Start: 12-03-2024 End: 12-03-2024 Patient encounter procedure 12/03/2024 10:00 AM EDT Office Visit [facility] [address] [place] [address] Alexis Rubalcava, [address] [place] [address] [facility] Start: 10-02-2024 Tobacco Screening Tobacco Screening [facility] Start: 08-29-2024 End: 08-29-2024 Patient encounter procedure 08/29/2024 10:45 AM EDT Office Visit [facility] [address] [place] [address] Yadiel Scott, PA [address] [place] [address] [facility] Start: 08-23-2024 Adult BMI Screening Adult BMI Screen ing [facility] Start: 08-23-2024 Tobacco Screening Tobacco Screening [facility] Start: 08-21-2024 End: 08-21-2024 Patient encounter procedure 08/21/2024 9:00 AM EDT Office Visit [facility] [address] [place] [address] Estefany Garcia NP [address] [address] [facility] Start: 08-19-2024 End: 08-19-2024 Patient encounter procedure 08/19/2024 10:30 AM EDT Office Visit [facility] [address] [place] [address] Sindhu Tong, MARY [address] [place] [address] [facility] Start: 07-09-2024 End: 07-09-2024 Patient encounter procedure 07/09/2024 12:45 PM EST Office Visit [facility] [address] [facility] [place] [phone] Yadiel Scott PA [address], [address] [place] [address] [facility] Start: 06-21-2024 End: 06-21-2024 Admission to same day surgery center 06/21/2024 7:22 AM EST - 06/21/2024 7:30 AM EST Surgery [facility] [address] [place] [address] Roly Dickens MD [address] [place] [address] INJECTION BURSA LARGE JOINT: left hip [ (CPT )] [facility] Comment on above: INJECTION BURSA LARG E JOINT: left hip [ (CPT )] Start: 06-21-2024 End: 06-21-2024 Arthrocentesis aspir&/inj major jt/bursa w/o us INJECTION BURSA LARGE JOINT Primary osteoarthritis of left hip 06/21/2024 7:22 AM EST [facility] Start: 06-21-2024 Subsequent hospital visit by physician 06/21/2024 7:22 AM EST Hospital Encounter [facility] [address] [facility] [place] [phone] Roly Dickens MD [address] [place] [address] [facility] Start: 06-13-2024 Influenza vaccination Influenza Vacc ine (#1) [facility] Comment on above: Postponed from 02/10 (Patient Ill Today) Start: 05-23-2024 End: 05-23-2024 Patient encounter procedure 05/23/2024 9:45 AM EST Office Visit [facility] [address] [place] [facility] [place] [place] [phone] Yadiel Scott PA [address] [facility], 2nd [address] [place], [place] [phone] [facility] Start: 05-16-2024 End: 05-16-2024 Patient encounter procedure [facility] Comment on above: Arrived Start: 04-26-2024 End: 04-26-2024 Admission to same day surgery center 04/26/2024 2:52 PM EST - 04/26/2024 2:59 PM EST Surgery [facility] [address] [place] [address] Roly Dickens MD [address] [facility], [place] [phone] INJECTION BLOCK SACROILIAC JOINT [21166 (CPT )] [facility] Comment on above: INJECTION BLOCK SACR OILIAC JOINT [79729 (CPT )] Start: 04-26-2024 End: 04-26-2024 Inject si joint arthrgrphy&/anes/steroid w/aileen INJECTION BLOCK SACROILIAC JOINT Disorder of sacrum 04/26/2024 2:52 PM EST [facility] Start: 04-26-2024 Subsequent hospital visit by physician 04/26/2024 2:52 PM EST Hospital Encounter [facility] [address] [place] [phone] Roly Dickens MD [address] [place], [place] [phone] [facility] Start: 04-24-2024 End: 04-24-2024 Patient encounter procedure 04/24/2024 10:00 AM EST Office Visit [facility] [address] [place] [place] [phone] Sindhu Tong, MARY [address] [place] [address] [facility] Start: 04-09-2024 End: 04-09-2024 Patient encounter procedure 04/09/2024 9:45 AM EDT Office Visit [facility] [address] [place] [address] Yadiel Scott PA [address], [address] [place], [place] [phone] [facility] Start: 04-05-2024 End: 03-06-2025 Comprehensive metabolic 2000 panel - Serum or Plasma Comprehensive metabolic panel Lab Routine Primary hypertension (CMS/HCC) Expected: 04/05/2024 (Approximate), Expires: 03/06/2025 [facility] Work Phone: Comment on above: Expected: 04/05/2024 (Approximate), Expires: 03/06/2025 Start: 03-22-2024 End: 03-22-2024 Admission to same day surgery center 03/22/2024 7:22 AM EDT - 03/22/2024 7:30 AM EDT Surgery [facility] [address] [place] [address] Roly Dickens MD [address] [place] [address] INJECTION BLOCK EPIDURAL CAUDAL STEROID [16832 (CPT )] [facility] Comment on above: INJECTION BLOCK EPID URAL CAUDAL STEROID [57964 (CPT )] Start: 03-22-2024 End: 03-22-2024 Njx dx/ther sbst intrlmnr lmbr/sac w/img gdn INJECTION BLOCK EPIDURAL CAUDAL STEROID Spinal stenosis of lumbar region with neurogenic claudication 03/22/2024 7:22 AM EDT [facility] Start: 03-22-2024 Subsequent hospital visit by physician 03/22/2024 7:22 AM EDT Hospital Encounter [facility] [address] [place] [phone] Roly Dickens MD [address] [place] [address] [facility] Start: 02-29-2024 End: 02-29-2024 Patient encounter procedure 02/29/2024 8:30 AM EDT Office Visit [facility] [address] [place] [address] Yadiel Scott, NILDA [address] [place] [address] [facility] Start: 02-22-2024 End: 02-22-2024 Patient encounter procedure 02/22/2024 10:30 AM EDT Office Visit [facility] [address] [place] [phone] Sindhu Tong NP [address] [place] [address] [facility] Start: 02-16-2024 End: 02-16-2024 Admission to same day surgery center 02/16/2024 7:03 AM EDT - 02/16/2024 7:10 AM EDT Surgery [facility] [address] [place] [address] Roly Dickens MD [address] [facility] [place] [phone] INJECTION BLOCK SACROILIAC JOINT [38411 (CPT )] [facility] Comment on above: INJECTION BLOCK SACR OILIAC JOINT [88280 (CPT )] Start: 02-16-2024 End: 02-16-2024 Inject si joint arthrgrphy&/anes/steroid w/aileen INJECTION BLOCK SACROILIAC JOINT Disorder of sacrum 02/16/2024 7:03 AM EDT [facility] Start: 02-16-2024 Subsequent hospital visit by physician 02/16/2024 7:03 AM EDT Hospital Encounter [facility] [address] [place] [address] Roly Dickens MD [address] [place], [place] [phone] [facility] Start: 02-15-2024 End: 02-15-2024 Patient encounter procedure 02/15/2024 8:45 AM EDT Office Visit [facility] [address] [place] [address] Yadiel Scott PA [address], [address] [place], [place] [phone] [facility] Start: 02-13-2024 Screening for malign ant neoplasm of breast Mammogram [facility] Start: 02-11-2024 COVID-19 Vaccine ( season) COVID-19 Vaccine ( season) [facility] Start: 02-11-2024 COVID-19 Vaccine ( season) COVID-19 Vaccine ( season) [facility] Start: 02-11-2024 Influenza vaccination N [facility] Start: 01-18-2024 End: 01-18-2024 Patient encounter procedure 01/18/2024 9:15 AM EDT Office Visit [facility] [address] [place] [address] Yadiel Scott PA [address], [address] [place], [place] [phone] [facility] Start: 01-13-2024 Tobacco Counseling Tobacco Counselin g [facility] Start: 01-12-2024 End: 01-12-2024 Admission to same day surgery center 01/12/2024 10:08 AM EDT - 01/12/2024 10:15 AM EDT Surgery [facility] [address] [place] [address] Roly Dickens MD [address] [place], [place] [phone] INJECTION BLOCK SACROILIAC JOINT [13052 (CPT )] [facility] Comment on above: INJECTION BLOCK SACR OILIAC JOINT [10144 (CPT )] Start: 01-12-2024 End: 01-12-2024 Inject si joint arthrgrphy&/anes/steroid w/aileen INJECTION BLOCK SACROILIAC JOINT Disorder of sacrum 01/12/2024 10:08 AM EDT [facility] Start: 01-12-2024 Subsequent hospital visit by physician 01/12/2024 10:08 AM EDT Hospital Encounter [facility] [address] [place] [address] Roly Dickens MD [address] [place] [address] [facility] Start: 11-30-2023 End: 11-30-2023 Patient encounter procedure 11/30/2023 9:00 AM EDT Office Visit [facility] [address] [facility] [address] Alexis Rubalcava DO [address] [place] [address] [facility] Start: 10-03-2023 End: 10-03-2023 Patient encounter procedure 10/03/2023 9:45 AM EDT Office Visit [facility] [address] [place] [address] Yadiel Scott PA [address], [address] [place] [address] [facility] Start: 09-15-2023 End: 09-15-2023 Admission to same day surgery center 09/15/2023 7:26 AM EDT - 09/15/2023 7:32 AM EDT Surgery [facility] [address] [place] [address] Roly Dickens MD [address] [place] [address] INJECTION BLOCK SACROILIAC JOINT [86408 (CPT )] [facility] Comment on above: INJECTION BLOCK SACR OILIAC JOINT [56682 (CPT )] Start: 09-15-2023 End: 09-15-2023 Inject si joint arthrgrphy&/anes/steroid w/aileen INJECTION BLOCK SACROILIAC JOINT Disorder of sacrum 09/15/2023 7:26 AM EDT [facility] Start: 09-15-2023 Subsequent hospital visit by physician 09/15/2023 7:26 AM EDT Hospital Encounter [facility] [address] [place] [address] Roly Dickens MD [address] [place] [address] [facility] Start: 07-17-2023 End: 07-17-2023 Patient encounter procedure 07/17/2023 9:15 AM EST Office Visit [facility] [address] [place] [phone] Shaikh Hahn MD [address] [place] [address] Arrived [facility] Comment on above: Arrived Start: 02-10-2023 COVID-19 Vaccine ( season) COVID-19 Vaccine ( season) [facility] Start: 12-05-2022 DTaP,Tdap and Td Vaccines (2 - Tdap) DTaP,Tdap and Td Vaccines (2 - Tdap) [facility] Start: 11-18-2022 Screening for malign ant neoplasm of breast Mammogram [facility] Start: 1982 Screening for malign ant neoplasm of cervix Pap Smear [facility] Start: 1979 Adult BMI Follow Up Plan Adult BMI F ollow Up Plan [facility] Start: 1973 Depression Screening Depression Scre ening [facility] Start: 1961 Screening for malign ant neoplasm of colon [facility] End: 07-09-2025 XR Pelvis and Hip - left 2 Views X-ray hip left 2-3 views with or without pelvis Imaging Routine Primary osteoarthritis of left hip 1 Occurrences starting 07/09/2024 until 07/09/2025 [facility] Work Phone: Comment on above: 1 Occurrences starti ng 07/09/2024 until 07/09/2025 XR Pelvis and Hip - left 2 Views X-ray hip left 2-3 views with or without pelvis Imaging Routine Primary osteoarthritis of left hip 07/09/2024 1:58 PM [facility] Immunizations Immunization Date Immunization Notes Care Provider Kirby schmidt 04-24-2023 zoster vaccine recombinant Shaikh Jovani ASKEW Work Phone: [facility] 03-15-2023 Pneumococcal Conjuga te PCV 20 Shaikh Jovani ASKEW Work Phone: [facility] 03-15-2023 Seasonal, quadrivale nt, recombinant, injectable influenza vaccine, preservative free Shaikh Jovani ASKEW Work Phone: [facility] 03-15-2023 influenza virus vaccine, unspecified formulation Yadiel MUNGUIA Work Phone: [facility] 04-16-2020 influenza, injectabl e, quadrivalent, preservative free Shaikh Jovani ASKEW Work Phone: [facility] 07-31-2019 Influenza, injectabl e, Madin Anastasiya Canine Kidney, preservative free, quadrivalent Shaikh Jovani ASKEW Work Phone: [facility] 04-19-2018 influenza, injectabl e, quadrivalent, preservative free Shaikh Jovani ASKEW Work Phone: [facility] 06-01-2017 influenza, seasonal, injectable, preservative free Shaikh Jovani ASKEW Work Phone: [facility] 03-29-2017 influenza, injectabl e, quadrivalent, preservative free Shaikh Jovani ASKEW Work Phone: [facility] 06-18-2015 influenza, seasonal, injectable, preservative free Shaikh Jovani ASKEW Work Phone: [facility] 12-05-2012 diphtheria, tetanus toxoids and pertussis vaccine Shaikh Jovani ASKEW Work Phone: [facility] Payers Date Payer Category Payer Managed Care Other (unspecified) [place] [address] [id number] 2024 Private Health Insurance [id number] 2003 Private Health Insurance [id number] [id number] 1961 Unknown [id number] 2.16.840.1.679999.3.579. 2.593 1961 Unknown [id number] 2.16.840.1.470913.3.579. 2.593 1961 Unknown [id number] 2.16.840.1.723957.3.579. 2.1259 1961 Unknown [id number] 2.16.840.1.491341.3.579. 2.1259 1961 Unknown [id number] 2.16.840.1.679207.3.579. 2.1259 1961 Unknown [id number] 2.16.840.1.809732.3.579. 2.1259 1961 Unknown [id number] 2.16.840.1.383310.3.579. 2.1259 1961 Unknown [id number] 2.16.840.1.171207.3.579. 2.1286 1961 Unknown [id number] 2.16.840.1.157043.3.579. 2.6 1961 Unknown [id number] 2.16.840.1.019041.3.579. 2.1285 1961 Unknown [id number] 2.16.840.1.027316.3.579. 2.1285 1961 Unknown [id number] 2.16.840.1.734953.3.579. 2.1285 1961 Unknown [id number] 2.16.840.1.672096.3.579. 2.1285 1961 Unknown [id number] 2.16.840.1.640691.3.579. 2.1285 1961 Unknown [id number] 2.16.840.1.476965.3.579. 2.1285 1961 Unknown [id number] 2.16.840.1.359214.3.579. 2.1285 1961 Unknown [id number] 2.16.840.1.413550.3.579. 2.1285 1961 Unknown [id number] 2.16.840.1.187075.3.579. 2.1285 1961 Unknown [id number] 2.16.840.1.547670.3.579. 2.1285 1961 Unknown [id number] 2.16.840.1.195265.3.579. 2.1285 1961 Unknown [id number] 2.16.840.1.629653.3.579. 2.1285 1961 Unknown [id number] 2.16.840.1.274260.3.579. 2.1285 1961 Unknown [id number] 2.16.840.1.899261.3.579. 2.1285 1961 Unknown [id number] 2.16.840.1.654824.3.579. 2.1286 1961 Unknown [id number] 2.16.840.1.791010.3.579. 2.1286 1961 Unknown [id number] 2.16.840.1.203656.3.579. 2.1286 1961 Unknown [id number] 2.16.840.1.247565.3.579. 2.1286 1961 Unknown [id number] 2.16.840.1.812669.3.579. 2.1286 1961 Unknown [id number] 2.16.840.1.289114.3.579. 2.1286 1959 Private Health Insurance [id number] Social History Date Type Detail Facility Start: 06-12-1982 End: 01-29-2023 Tobacco smoking status [facility] Smokes tobacco daily [facility] [...] Sex Assigned At Not on file N [facility] Start: 12-28-2023 End: 01-24-2024 Tobacco smoking status HIIS Ex-smoker [facility] Start: 06-12-1982 End: 09-11-2023 History of tobacco use Current smoker [facility] History of tobacco use Passive smoker [facility] Start: 12-16-2021 End: 12-28-2023 Tobacco use and exposure Smokeless tobacco non-user [facility] Start: 05-23-2024 End: 07-09-2024 Alcoholic beverage intake Ex-drinker (finding) [facility] Frequency of Alcohol Consumption Never [facility] Start: 01-15-2015 Sex Female (finding) [facility] Start: 10-03-2023 End: 01-30-2024 Alcoholic beverage intake Current drinker of alcohol (finding) [facility] Start: 08-19-2021 Alcohol Comment rarely [facility] Medical Equipment Procedure Code Equipment Code Equipment Origin al Text Equipment Identifier Dates Cement Bn Bio 40 gm Rpl [id number] - [id number] Start: 09-02-2021 Cement Bn Bio 40 gm Rpl [id number] - [id number] Start: 09-02-2021 Component Ptlr 3 2mm Persona Alply Kn Strl Lf - [id number] Start: 09-02-2021 Component Fem 8 Cristopher Kn Rt Post Stab Cmnt Persona Cocr Strl - [id number] Start: 09-02-2021 Insert Artc 6-9 Cd 10mm Kn Rt Post Stab Pe Persona - [id number] Start: 09-02-2021 Baseplate Tib 5d D Kn Rt Cmnt Stm Persona Tiv Strl - [id number] Start: 09-02-2021 Clinical Notes 07-17-2023 to 07-25-2024 Telephone Encounter - Grazyna Carter RN - 07/25/2024 12:01 PM ESTTelephone Encounter - Grazyna Carter RN - 07/25/2024 12:01 PM NILDA Schumacher - 07/09/2024 12:45 PM EST Note Date & Type Note Facility 07-25-2024 Miscellaneous Notes Last OV: 07/09/2024 Next OV: 08/29/2024 OARRS appropriate: yes Last UDS: n/a [facility] this encounter [facility] 07-25-2024 Telephone encounter Note Last OV: 07/09/2024 Next OV: 08/29/2024 OARRS appropriate: yes Last UDS: n/a [facility] 07-09-2024 History of Present illness Narrative [facility] [address] [place] [address] Patient: Roz Tavares Sex: female : 1960 Age: 64 y.o. PCP: SHAIKH JOVANI MD 07/09/2024 Roz Tavares is here for a(n) post procedure follow up left hip injection with with 100% relief for 2 weeks . Date of onset of pain: 2019 , pain has lasted greater than 3 months. Pain scale before treatment: 8/10 Pre-op pain score: 8/10 Post-op pain score: 2/10 2 hour post-op pain score: 0/10 4 hour post-op pain score: 0/10 Percentage and duration of relief after treatment: 100% relief for two weeks Pain scale after treatment: 5/10 Chief Complaint Patient presents with Back Pain Hip Pain HPI: PT/HEP 07/2022 not helpful Back: [...] relief. Patient's pre op pain 6-10/10 to 06/2106/21/24 left hip injection with 100% relief for two weeks Back Pain This is a chronic problem. The current episode started more than 1 year ago (@ 2020). The problem occurs intermittently (worsens with activity). The problem is unchanged. Pain location: left groin. The quality of the pain is described as aching. Radiates to: left groin. The pain is at a severity of 1/10 (can get up to 9/10 depedning on activity). The pain is moderate (to severe). The pain is The same all the time. The symptoms are aggravated by standing, bending and twisting (walking). Stiffness is present: na. Pertinent negatives include no abdominal pain, bladder incontinence, bowel incontinence, chest pain, fever, leg pain, numbness, tingling or weakness. Risk factors include poor posture, obesity and lack of exercise. Treatments tried: PT/HEP 07/2022, rest, ice/heat, meds: NSAIDs (mobic, celebrex), tylenol, baclofen, volteran with little releif. The treatment provided moderate relief. Hip Pain The incident occurred more than 1 week ago. There was no injury mechanism. The pain is present in the left hip. The quality of the pain is described as aching. The pain is at a severity of 5/10 (can get up to 10/10). The pain is moderate. The pain has been Fluctuating since onset. Pertinent negatives include no numbness or tingling. The symptoms are aggravated by movement. Treatments tried: tylenol with mild relief, tramadol, metocarbomal moderate relief. The effect of pain on [...] 04/03/2018 Performed by Chepe Bustamante MD at [facility] SURGERY CYSTOSCOPY W/ URETERAL STENT PLACEMENT 2014 x 2 DILATION AND CURETTAGE OF UTERUS 1981, 1983 HYSTERECTOMY 1996 total INJECTION BLOCK EPIDURAL CAUDAL STEROID N/A 03/22/2024 Performed by Roly Dickens MD at [facility] INJECTION BLOCK EPIDURAL CAUDAL STEROID N/A 10/21/2022 Performed by Roly Dickens MD at [facility] INJECTION BLOCK EPIDURAL CAUDAL STEROID N/A 09/23/2022 Performed by Roly Dickens MD at [facility] INJECTION BLOCK SACROILIAC JOINT Left 04/26/2024 Performed by Roly Dickens MD at [facility] INJECTION BLOCK SACROILIAC JOINT Bilateral 02/09/2024 Performed by Roly Dickens MD at [facility] INJECTION BLOCK SACROILIAC JOINT Bilateral 09/15/2023 Performed by Roly Dickens MD at [facility] INJECTION BLOCK SACROILIAC JOINT Bilateral 2023 Performed by Roly Dickens MD at [facility] INJECTION BLOCK SACROILIAC JOINT Bilateral 12/23/2022 Performed by Roly Dickens MD at [facility] INJECTION BURSA LARGE JOINT: left hip Left 06/21/2024 Performed by Roly Dickens MD at [facility] OOPHORECTOMY OTHER SURGICAL HISTORY 1982 uterus reconstruction REPLACEMENT TOTAL JOINT KNEE Right 09/02/[address] Sylvester MD at [facility] TONSILLECTOMY Allergies Allergen Reactions Avelox [Moxifloxacin] [...] date: 06/12/1982 Quit date: 09/2023 Years since quittin.8 Smokeless tobacco: Never Vaping Use Vaping status: Never Used Substance and Sexual Activity Alcohol use: Not Currently Drug use: No Sexual activity: Defer Partners: Male Other Topics Concern Not on file Social History Narrative Not on file Social Drivers of Health Financial Resource Strain: Not on file Food Insecurity: No Food Insecurity (07/09/2024) Hunger Screening Food Insecurity - Worry: Never True Food Insecurity - Inability: Never True Transportation Needs: Not on file Physical Activity: Not on file Stress: Not on file Social Connections: Not on file Interpersonal Safety: Not on file Housing Instability: Not on file Review of Systems Constitutional: Negative. Negative for chills and fever. HENT: Negative. Negative for congestion. Eyes: Negative. Respiratory: Negative. Negative for cough and shortness of breath. Cardiovascular: Negative. Negative for chest pain. Gastrointestinal: Negative. Negative for abdominal pain and bowel incontinence. Endocrine: Negative. Genitourinary: Negative. Negative for bladder incontinence. Musculoskeletal: Positive for back pain and myalgias. Skin: Negative. Allergic/Immunologic: Negative. Neurological: Negative. Negative for tingling, weakness and numbness. Hematological: Negative. Psychiatric/Behavioral: Negative. Vital Signs: BP 117/79 (BP Site: Right Arm, BP Postition: Sitting) Pulse 69 Resp 18 SpO2 97% Physical Exam: GENERAL - Healthy patient that [...] warm, with minimal edema and palpable pulses. Tenderness to palpation noted in the lumbar spine and paraspinal musculature. Pain is elicited with flexion, extension, and lateral rotation of the lumbar spine. Range of motion is diminished with these motions due to pain. Facet palpation is noted to be somewhat tender and facet loading maneuvers are mildly positive, but not concordant with the patient s normal [...] dermatomal distributions. Straight Leg Raise is negative Tenderness to palpation noted over the Left Hip Joint. Pain is elicited with internal and external rotation of the hip and hip provocative maneuvers are positive and consistent with some of the patient s normal pain. No obvious ligamental laxity is noted. Gait is normal. Assessment/Treatment Plan: Roz was seen today for back pain and hip pain. Diagnoses and all orders for this visit: Primary osteoarthritis of left hip - X-ray hip left 2-3 views with or without pelvis; Future Lumbosacral spondylosis without myelopathy Other orders - methocarbamoL (ROBAXIN) 500 mg tablet; Take 1 tablet (500 mg total) by mouth 3 (three) times a day. Left Hip xray Imaging/Diagnostic Testing - It is felt that additional diagnostic testing is necessary to further evaluate the patients current pain pathology. For this reason, we will order additional imaging/diagnostic testing noted above. It is hopeful that this study will identify a significant pain generator that will be amenable to therapy. It is felt that this modality is necessary due to the severity and chronicity of symptoms and physical exam findings combined with the lack of recent imaging/diagnostic testing of the area. Robaxin 500 mg TID With Regard to medication management, it is felt that the patient would benefit from the changes mentioned above. This should provide symptomatic pain relief as part of the comprehensive pain management strategy outlined. Risks, Benefits, Side effects, and possible interactions of these medications were reviewed and the medication agreement has been discussed, agreed upon, and signed. The patient understands compliance concerns and the requirement of pill counts and drug screens while taking medications prescribed by this clinic. Follow up 2 months The medications I have prescribed have been reviewed for medication interactions/contraindications [...] prescribe any controlled substance from this practice. Treatment plans discussed but not opted for at this time: Orthopedic surgery consult. Patient would like to proceed with the current outlined treatment plan before moving forward with any other options. The spine model was demonstrated and Xray and MRI was reviewed and used to explain the condition. Chronic conditions not treated during this visit that affected my overall medical decision making: Obesity OARRS: Reviewed. Scribe Statement: Estefany So CNA, scribed for and in the presence of NILDA TURNER who performed the above service. Provider Statement: YADIEL So PA, personally performed the services described in the documentation, as scribed by Estefany Hoffman CNA in my presence, and it is both accurate and complete. Estefany Hoffman CNA 07/09/24 1329 NILDA Turner 07/09/24 1347 documented in this encounter [facility] 05-23-2024 History of Present illness Narrative [facility] [address] [place] [address] Patient: Roz Tavares Sex: female : 1960 Age: 64 y.o. PCP: SHAIKH JOVANI MD 05/23/2024 Roz Tavares is here for a(n) post procedure follow [...] duration: see above Pain scale after treatment: 8/10 to left groin Chief Complaint Patient presents with Back Pain HPI: PT/HEP 07/2022 not helpful Back: 09/23/22 Caudal w/60% relief for 3 days 5/12/23 Caudal w/60% relief continued 12/23/22 Bilateral SI [...] 04/03/2018 Performed by Chepe Bustamante MD at [facility] SURGERY CYSTOSCOPY W/ URETERAL STENT PLACEMENT 2014 x 2 DILATION AND CURETTAGE OF UTERUS 1981, 1983 HYSTERECTOMY 1996 total INJECTION BLOCK EPIDURAL CAUDAL STEROID N/A 03/22/2024 Performed by Roly Dickens MD at [facility] INJECTION BLOCK EPIDURAL CAUDAL STEROID N/A 10/21/2022 Performed by Roly Dickens MD at [facility] INJECTION BLOCK EPIDURAL CAUDAL STEROID N/A 09/23/2022 Performed by Roly Dickens MD at [facility] INJECTION BLOCK SACROILIAC JOINT Left 04/26/2024 Performed by Roly Dickens MD at [facility] INJECTION BLOCK SACROILIAC JOINT Bilateral 02/09/2024 Performed by Roly Dickens MD at [facility] INJECTION BLOCK SACROILIAC JOINT Bilateral 09/15/2023 Performed by Roly Dickens MD at [facility] INJECTION BLOCK SACROILIAC JOINT Bilateral 2023 Performed by Roly Dickens MD at [facility] INJECTION BLOCK SACROILIAC JOINT Bilateral 12/23/2022 Performed by Roly Dickens MD at [facility] OOPHORECTOMY OTHER SURGICAL HISTORY 1982 uterus reconstruction REPLACEMENT TOTAL JOINT KNEE Right 09/02/[address]vester MD at [facility] TONSILLECTOMY Allergies Allergen Reactions Avelox [Moxifloxacin] [...] is noted. Gait is normal. Assessment/Treatment Plan: Roz was seen today for back pain. Diagnoses [...] Turner 05/23/24 1153 [facility] Instructions Estefany Hoffman CNA - 05/23/2024 [...] back to normal. documented in this encounter [facility] 05-23-2024 Telephone encounter Note 90 day supply please. 05/16/2024 08/19/2024 [facility] 05-23-2024 Miscellaneous Notes 90 day supply please. 05/16/2024 08/19/2024 documented in this encounter [facility] 05-16-2024 History of Present illness Narrative Associated Problem(s): URTI (acute upper respiratory infection) Presents today complaining of URI symptoms ongoing for 2 weeks Admits: Productive cough-yellow phlegm Runny nose Ear ache Sore throat Headache Has tried several OTC treatments with no relief. Will order Azithromycin, prednisone and tessalon pearles today. Images from the original note were not included. Subjective Patient ID: Roz Tavares is a 64 y.o. female who presents for Nasal Congestion (Headache , cough and ears hurting). HPI Following with Dr. Aguilar- having low dose CT scan done and split sleep study done. Presents today complaining of URI symptoms ongoing for 2 weeks Admits: Productive cough-yellow phlegm Runny nose Ear ache Sore throat Headache Denies: Fever Shortness of breath Chest pain N/V/D [place]: Mucinex [place] Tessalon Pearles Flonase No relief Review of [...] with single episode, in full remission (CMS/HCC) Relevant Medications traZODone (Desyrel) 50 MG tablet Other Visit Diagnoses Upper respiratory tract infection, unspecified type - Primary Relevant Medications azithromycin (Zithromax) 500 MG tablet benzonatate (Tessalon Perles) 100 MG capsule predniSONE (Deltasone) 20 MG tablet documented in this encounter [facility] 05-16-2024 Instructions Sindhu Tong NP - 05/16/2024 9:30 AM EST [...] NEAREST EMERGENCY DEPARTMENT. documented in this encounter [facility] 05-02-2024 Telephone encounter Note 90 day supply please RENAE:02/22/2024 NOV:05/16/2024 [facility] 05-02-2024 Miscellaneous Notes 90 day supply please RENAE:02/22/2024 NOV:05/16/2024 documented in this encounter [facility] 04-26-2024 Miscellaneous Notes Last Office Visit: 04/09/2024 Next Office Visit: 05/23/2024 Last Urine Drug Screen: No results found for: BENZOSCRN OARRS appropriate documented in this encounter [facility] 04-26-2024 Telephone encounter Note Last Office Visit: 04/09/2024 Next Office Visit: 05/23/2024 Last Urine Drug Screen: No results found for: DEANSCNALINI OARRS appropriate [facility] 04-09-2024 Telephone encounter Note Pt requesting refills on her Lipitor and her Trazodone. RENAE:02/22/2024 NOV:04/24/2024 [facility] 04-09-2024 Miscellaneous Notes Pt requesting refills on her Lipitor and her Trazodone. RENAE:02/22/2024 NOV:04/24/2024 documented in this encounter [facility] 04-09-2024 History of Present illness Narrative [facility] [address] [place] [address] Patient: Roz Tavares Sex: female : 1960 Age: 63 y.o. PCP: SHAIKH JOVANI MD 04/09/2024 Roz Tavares is here for a(n) post procedure follow [...] 04/03/2018 Performed by Chepe Bustamante MD at [facility] SURGERY CYSTOSCOPY W/ URETERAL STENT PLACEMENT 2014 x 2 DILATION AND CURETTAGE OF UTERUS 1981, 1983 HYSTERECTOMY 1996 total INJECTION BLOCK EPIDURAL CAUDAL STEROID N/A 03/22/2024 Performed by Roly Dickens MD at [facility] INJECTION BLOCK EPIDURAL CAUDAL STEROID N/A 10/21/2022 Performed by Roly Dickens MD at [facility] INJECTION BLOCK EPIDURAL CAUDAL STEROID N/A 09/23/2022 Performed by Roly Dickens MD at [facility] INJECTION BLOCK SACROILIAC JOINT Bilateral 02/09/2024 Performed by Roly Dickens MD at [facility] INJECTION BLOCK SACROILIAC JOINT Bilateral 09/15/2023 Performed by Roly Dickens MD at [facility] INJECTION BLOCK SACROILIAC JOINT Bilateral 2023 Performed by Roly Dickens MD at [facility] INJECTION BLOCK SACROILIAC JOINT Bilateral 12/23/2022 Performed by Roly Dickens MD at [facility] OOPHORECTOMY OTHER SURGICAL HISTORY 1982 uterus reconstruction REPLACEMENT TOTAL JOINT KNEE Right 09/02/[address]vester MD at [facility] TONSILLECTOMY Allergies Allergen Reactions Avelox [Moxifloxacin] [...] normal pain. Gait is normal. Assessment/Treatment Plan: Roz was seen today for back pain. Diagnoses [...] Turner 04/09/24 1201 documented in this encounter [facility] 04-09-2024 Instructions Estefany Hoffman CNA - 04/09/2024 [...] nearest emergency room. documented in this encounter [facility] 02-29-2024 History of Present illness Narrative [facility] [address] [place] [address] Patient: Roz Tavares Sex: female : 1960 Age: 63 y.o. PCP: SHAIKH JOVANI MD 02/29/2024 Roz Tavares is here for a(n) post procedure follow up 02/09/2024 bilateral sacroiliac injection with 75-80% relief x 1 day. Patient's pain remained at 2/10 from hour 6 into the next day. Patient was prescribed lidocaine patches, baclofen and medrol dose pack at last office visit. Patient reports that none of the prescribed interventions provided any relief. She is no using lidocaine patches anymore but does continue with Baclofen despite the ineffectiveness. She reports her worst pain now is in her lumbar spine with walking only. Date of onset of pain: 2019 , pain has lasted greater than 3 months. Pain scale before treatment: 8/10 Pre-op pain score: 8/10 Post-op pain score: 0/10 2 hour post-op pain score: 6/10 4 hour post-op pain score: 4/10 Percentage of relief after and duration: 75% relief x 1 day Pain scale after treatment: 3/10 Chief Complaint Patient presents with Back Pain [...] from hour 6 into the next day. Back Pain This is a chronic problem. The current episode started more than 1 year ago (@ 2019). The problem occurs constantly (today is 3/10 but can be 9-10/10). The problem has been gradually improving since onset. The pain is present in the lumbar spine (right). The quality of the pain is described as aching. The pain does not radiate. The pain is at a severity of 3/10 (can be 9-10/10 with walking). The pain is mild (to severe). Worse during: varies. The symptoms are aggravated by standing, bending and twisting (walking). Stiffness is present In the morning. Associated symptoms include numbness (intermittent to left foot when standing too long) and weakness (low back). Pertinent negatives include no bladder incontinence, bowel incontinence, chest pain, fever, leg pain or tingling. Risk factors include poor posture, obesity and [...] 04/03/2018 Performed by Chepe Bustamante MD at [facility] SURGERY CYSTOSCOPY W/ URETERAL STENT PLACEMENT 2014 x 2 DILATION AND CURETTAGE OF UTERUS 1981, 1983 HYSTERECTOMY 1996 total INJECTION BLOCK EPIDURAL CAUDAL STEROID N/A 10/21/2022 Performed by Roly Dickens MD at [facility] INJECTION BLOCK EPIDURAL CAUDAL STEROID N/A 09/23/2022 Performed by Roly Dickens MD at [facility] INJECTION BLOCK SACROILIAC JOINT Bilateral 02/09/2024 Performed by Roly Dickens MD at [facility] INJECTION BLOCK SACROILIAC JOINT Bilateral 09/15/2023 Performed by Roly Dickens MD at [facility] INJECTION BLOCK SACROILIAC JOINT Bilateral 2023 Performed by Roly Dickens MD at [facility] INJECTION BLOCK SACROILIAC JOINT Bilateral 12/23/2022 Performed by Roly Dickens MD at [facility] OOPHORECTOMY OTHER SURGICAL HISTORY 1982 uterus reconstruction REPLACEMENT TOTAL JOINT KNEE Right 09/02/[address]vester MD at [facility] TONSILLECTOMY Allergies Allergen Reactions Avelox [Moxifloxacin] [...] date: 06/12/1982 Quit date: 09/2023 Years since quittin.4 Smokeless tobacco: Never Vaping Use Vaping status: Never Used Substance and Sexual Activity Alcohol use: Not Currently Drug use: No Sexual activity: Defer Partners: Male Other Topics Concern Not on file Social History Narrative Not on file Social Determinants of Health Financial Resource Strain: Not on file Food Insecurity: No Food Insecurity (02/29/2024) Hunger Screening Food Insecurity - Worry: Never True Food Insecurity - Inability: Never True Transportation Needs: Not on file Physical Activity: Not on file Stress: Not on file Social Connections: Not on file Interpersonal Safety: Not on file Housing Instability: Not on file Review of Systems Constitutional: Negative for fever. Respiratory: Negative for cough and shortness of breath. Cardiovascular: Negative for chest pain. Gastrointestinal: Negative for bowel incontinence, constipation and diarrhea. Genitourinary: Negative. Negative for bladder incontinence. Musculoskeletal: Positive for back pain. Skin: Negative. Neurological: Positive for weakness (low back) and numbness (intermittent to left foot when standing too long). Negative for tingling. Psychiatric/Behavioral: Negative. Vital Signs: BP 137/81 Pulse 67 Resp 16 Wt 91.2 kg (201 lb) SpO2 98% [...] warm, with minimal edema and palpable pulses. Tenderness to palpation noted in the lumbar spine and paraspinal musculature. Pain is elicited with flexion, extension, and lateral rotation of the lumbar spine. Range of motion is diminished with these motions due to pain. Facet palpation is noted to be somewhat tender and facet loading maneuvers are mildly positive, but not concordant with the patient s normal [...] all dermatomal distributions. Straight Leg Raise is negative. Gait is normal. Assessment/Treatment Plan: Roz was seen today for back pain. Diagnoses and all orders for this visit: Spinal stenosis of lumbar region with neurogenic claudication - Case request operating room: INJECTION BLOCK EPIDURAL CAUDAL STEROID Other orders - diclofenac (CATAFLAM) 50 mg tablet; Take 1 tablet (50 mg total) by mouth in the morning and 1 tablet (50 mg total) before bedtime. Discontinue Mobic and begin Diclofenac 50 mg BID With Regard to medication management, it is felt that the patient would benefit from the changes mentioned above. This should provide symptomatic pain relief as part of the comprehensive pain management strategy outlined. Risks, Benefits, Side effects, and possible interactions of these medications were reviewed and the medication agreement has been discussed, agreed upon, and signed. The patient understands compliance concerns and the requirement of pill counts and drug screens while taking medications prescribed by this clinic. Caudal Epidural Steroid Injection - under fluoroscopy with the use [...] wishes to proceed. It was explained that Caudal injections often require a series of 2-3 before significant relief is noted, but we will determine after each injection if another one is indicated. Depending on the amount and duration of relief obtained from the injection, additional modalities of therapy including medications and physical therapy may need to be utilized alongside or following the injections. Follow up 2 weeks after procedure The medications I have prescribed have been reviewed for medication interactions/contraindications and/or for upcoming procedures: continue current medication regimen without any changes. DISCUSSION: Treatment options discussed with patient and all questions answered to patient's satisfaction.The patient has been instructed as to the type of medication prescribed along with directions for use. Potential side effects have been discussed, along with risks and benefits of taking this medication. (S)he was instructed as to what to do if (s)he experiences side effects, including when to discontinue the medication. (S)he was advised to call this office in this event. Also discussed at length safety and security of RX and medications. Prescribed medication that requires intensive monitoring for [...] both accurate and complete. Estefany Hoffman CNA 02/29/24 0923 NILDA Turner 02/29/24 1051 documented in this encounter [facility] 02-29-2024 Instructions Estefany Hoffman CNA - 02/29/2024 8:30 AM EDT Epidural Steroid Injection (MI) / Nerve Root Injection / Nerve Block These procedure(s) involve the injection of a steroid and anesthetic into the epidural space or the nerve sheath that is both diagnostic and potentially therapeutic for alleviating discomfort of the legs and arms secondary to compression of the respective nerves due to bulging discs, bone spurs and other potential causes. Steroids are potent anti-inflammatory drugs that act to decrease the swollen and inflamed nerves thus relieving your clinical symptoms. How Long Will This Procedure Last? The [...] and provide noticeable improvement. Activity You may feel temporary numbness, weakness or tingling: In the neck, arm, or fingertips (if your procedure was done in your neck) In the legs (if your procedure was done in your lower back) These symptoms are normal, and should subside within 3-4 hours. In that time, be careful to avoid falls. As a safety precaution, you must have a motor driver after a lumbar nerve root injection, even if you do not receive sedation. Resume activity as tolerated when function has returned. Medications Resume your routine medications after your [...] back to normal. documented in this encounter [facility] 02-23-2024 History of Present illness Narrative Associated Problem(s): Hypersomnia with sleep apnea Does wear CPAP- has not had a sleep study or equipment change in several years 15-20 years. Reports headaches and frequent yawning. Will refer for sleep study and CPAP management. Images from the original note were not included. Subjective Patient ID: Roz Tavares is a 63 y.o. female who presents [...] referral to Pulmonology documented in this encounter [facility] 02-22-2024 Instructions Sindhu Tong NP - 02/22/2024 10:30 AM EDT Referral sent to Pulmonology- They will call you! Do not restart adipex. If you develop shortness of breath at rest or with movement, chest pain, swelling in hands, legs, feet GO TO ER IMMEDIATELY!!! documented in this encounter [facility] 01-30-2024 History of Present illness Narrative [facility] [address] [place] [address] Patient: Roz Tavares Sex: female : 1960 Age: 63 y.o. PCP: SHAIKH JOVANI MD 01/30/2024 Roz L Anusha is here for a(n) follow up. Currently rating pain 10/10. Patient states pain is localized in low back and occasionally feels pain wrap around the front to stomach. Patient notes low back weakness. Morelia's insurance changed recently; had to move bilateral SI joint injection out to 02/16/2024; she is flared up currently. Chief Complaint Patient presents with Back Pain HPI: PT/HEP 07/2022 not helpful Back: 09/23/22 Caudal w/60% relief for 3 days 10/21/22 Caudal w/60% relief continued 12/23/22 Bilateral SI with 80% continued relief 2023 bilateral sacroiliac injection with 100% relief that continues as of this date bilateral SI joint injection on 09/15/2023 with at least 90% relief pre-pain 10/10 post pain 0/10 Back Pain This is a chronic problem. The current episode started more than 1 year ago (@ 2020). The problem occurs constantly (much better since 09/15/2023 procedure). The problem has been gradually worsening since onset. The pain is present in the lumbar spine. The quality of the pain is described as aching. Radiates to: oaccaionally feels pain wraps around to sides/ stomach area. The pain is at a severity of 10/10. The pain is severe. Worse during: varies. The symptoms are aggravated by standing, bending and twisting (walking). Stiffness is present In the morning. Associated symptoms include weakness (low back). Pertinent negatives include no bladder incontinence, bowel incontinence, chest pain, fever, leg pain, numbness or tingling. Risk factors include poor posture, obesity and [...] 04/03/2018 Performed by Chepe Bustamante MD at [facility] SURGERY CYSTOSCOPY W/ URETERAL STENT PLACEMENT 2014 x 2 DILATION AND CURETTAGE OF UTERUS 1981, 1983 HYSTERECTOMY 1997 total INJECTION BLOCK EPIDURAL CAUDAL STEROID N/A 10/21/2022 Performed by Roly Dickens MD at [facility] INJECTION BLOCK EPIDURAL CAUDAL STEROID N/A 09/23/2022 Performed by Roly Dickens MD at [facility] INJECTION BLOCK SACROILIAC JOINT Bilateral 09/15/2023 Performed by Roly Dickens MD at [facility] INJECTION BLOCK SACROILIAC JOINT Bilateral 2023 Performed by Roly Dickens MD at [facility] INJECTION BLOCK SACROILIAC JOINT Bilateral 12/23/2022 Performed by Roly Dickens MD at [facility] OOPHORECTOMY OTHER SURGICAL HISTORY 1982 uterus reconstruction REPLACEMENT TOTAL JOINT KNEE Right 09/02/[address]vester MD at [facility] TONSILLECTOMY Allergies Allergen Reactions Avelox [Moxifloxacin] [...] date: 06/12/1982 Quit date: 09/2023 Years since quittin.3 Smokeless tobacco: Never Vaping Use Vaping status: Never Used Substance and Sexual Activity Alcohol use: Yes Comment: rarely Drug use: No Sexual activity: Defer Partners: Male Other Topics Concern Not on file Social History Narrative Not on file Social Determinants of Health Financial Resource Strain: Not on file Food Insecurity: No Food Insecurity (01/30/2024) Hunger Screening Food Insecurity - Worry: Never True Food Insecurity - Inability: Never True Transportation Needs: Not on file Physical Activity: Not on file Stress: Not on file Social Connections: Not on file Interpersonal Safety: Not on file Housing Instability: Not on file Review of Systems Constitutional: Negative for fever. HENT: Negative for congestion and sore throat. Respiratory: Negative for cough and shortness of breath. Cardiovascular: Negative for chest pain. Gastrointestinal: Negative. Negative for bowel incontinence. Genitourinary: Negative for bladder incontinence. Musculoskeletal: Positive for back pain. Skin: Negative. Allergic/Immunologic: Negative. Neurological: Positive for weakness (low back). Negative for tingling and numbness. Psychiatric/Behavioral: Negative. Vital Signs: BP 143/79 (BP Site: Right Arm, BP Postition: Sitting) Pulse 71 Resp 18 Ht 162.6 cm (5' 4 ) Wt 92.5 kg (204 lb) SpO2 96% BMI 35.02 kg/m Physical Exam: GENERAL - Healthy patient [...] obvious deficits in memory, reasoning, or intellect. Tenderness to palpation is noted over the Bilateral SacroIliac Joint: Fabere sign (Julián's Test) is significantly positive, as is compression and distraction of the sacroiliac joints, which is consistent with some of the patient's normal pain. Assessment/Treatment Plan: Roz was seen today for back pain. Diagnoses and all orders for this visit: Disorder of sacrum - methylPREDNISolone (MEDROL, ELLIOT,) 4 mg tablet; follow package directions - baclofen (LIORESAL) 10 mg tablet; Take 0.5 tablets (5 mg total) by mouth 3 (three) times a day. - lidocaine (LIDODERM) 5 %; Place 1 patch on the skin daily. Remove & Discard patch within 12 hours or as directed by MD Continue with SI joint as ordered. Start medrol dose elliot as directed, baclofen 5 mg TID, lidocaine 5% patch daily. Follow up as scheduled DISCUSSION: Treatment options discussed with patient and all questions answered to patient's satisfaction. Discussed the rules and regulations surrounding prescription of opioids and compliance at length. Failure to follow the rules and regulation will result in tapering and discontinuation of medications if applicable. Prescribed medication that requires intensive monitoring for toxicity: We do not currently prescribe any controlled substance from this practice. The spine model was demonstrated and lumbar MRI was reviewed and used to explain the condition. OARRS: Reviewed. Follow up as scheduled Scribe Statement: Scribed for and in the presence of ELAINE DOSHI by Linda Calderon RN. Provider Statement: I, ELAINE DOSHI, personally performed the services described in the documentation, as scribed by Linda Calderon RN in my presence, and it is both accurate and complete. Linda Calderon RN 01/30/24 1423 ELAINE Doshi 01/30/24 1627 documented in this encounter [facility] 01-30-2024 Miscellaneous Notes Pt calls today stating her pain is a constant 10/10. She states that her last procedure scheduled 01/11 was cancelled and r/s for 02/15. Pt has tried heat with massage gun, with 0 help Takes about 12 tylenol daily= 0 help 0 sleep at night Would like tramadol or something to help get through the next few weeks Patient was added to my schedule today 01/30/24 to discuss other options. Thank you! documented in this encounter [facility] 01-30-2024 Telephone encounter Note Pt calls today stating her pain is a constant 10/10. She states that her last procedure scheduled 01/11 was cancelled and r/s for 02/15. Pt has tried heat with massage gun, with 0 help Takes about 12 tylenol daily= 0 help 0 sleep at night Would like tramadol or something to help get through the next few weeks [facility] 01-30-2024 Telephone encounter Note Patient was added to my schedule today 01/30/24 to discuss other options. Thank you! [facility] Work Phone: 12-28-2023 History of Present illness Narrative [facility] [address] [place] [address] Patient: Roz Tavares Sex: female : 1960 Age: 63 y.o. PCP: SHAIKH JOVANI MD 12/28/2023 Roz Tavares is here for an early 3 month follow up. She reports her SI joint pain has increased. Chief Complaint Patient presents with Back Pain HPI: PT/HEP 07/2022 not helpful Back: 09/23/22 Caudal w/60% relief for 3 days 10/21/22 Caudal w/60% relief continued 12/23/22 Bilateral SI with 80% continued relief 2023 bilateral sacroiliac injection with 100% relief that continues as of this date bilateral SI joint injection on 09/15/2023 with at least 90% relief pre-pain 10/10 post pain 0/10 Back Pain This is a chronic problem. The current episode started more than 1 year ago (@ 2020). The problem occurs constantly (much better since 09/15/2023 procedure). The problem has been gradually worsening since onset. The pain is present in the lumbar spine. The quality of the pain is described as aching. Radiates to: left groin. The pain is at a severity of 5/10 (up to 9/10). The pain is moderate. Worse during: varies. The symptoms are aggravated by standing, bending and twisting (walking). Stiffness is present In the morning. Pertinent negatives include no bladder incontinence, bowel [...] 04/03/2018 Performed by Chepe Bustamante MD at [facility] CYSTOSCOPY W/ URETERAL STENT PLACEMENT 2014 x 2 DILATION AND CURETTAGE OF UTERUS 1981, 1983 HYSTERECTOMY 1996 total INJECTION BLOCK EPIDURAL CAUDAL STEROID N/A 10/21/2022 Performed by Roly Dickens MD at [facility] INJECTION BLOCK EPIDURAL CAUDAL STEROID N/A 09/23/2022 Performed by Roly Dickens MD at [facility] INJECTION BLOCK SACROILIAC JOINT Bilateral 09/15/2023 Performed by Roly Dickens MD at [facility] INJECTION BLOCK SACROILIAC JOINT Bilateral 2023 Performed by Roly Dickens MD at [facility] INJECTION BLOCK SACROILIAC JOINT Bilateral 12/23/2022 Performed by Roly Dickens MD at [facility] OOPHORECTOMY OTHER SURGICAL HISTORY 1982 uterus reconstruction REPLACEMENT TOTAL JOINT KNEE Right 09/02/[address]vester MD at [facility] TONSILLECTOMY Allergies Allergen Reactions Avelox [Moxifloxacin] [...] date: 06/12/1982 Quit date: 09/2023 Years since quittin.2 Smokeless tobacco: Never Vaping Use Vaping status: Never Used Substance and Sexual Activity Alcohol use: Yes Comment: rarely Drug use: No Sexual activity: Defer Partners: Male Other Topics Concern Not on file Social History Narrative Not on file Social Determinants of Health Financial Resource Strain: Not on file Food Insecurity: No Food Insecurity (12/28/2023) Hunger Screening Food Insecurity - Worry: Never True Food Insecurity - Inability: Never True Transportation Needs: Not on file Physical Activity: Not on file Stress: Not on file Social Connections: Not on file Interpersonal Safety: Not on file Housing Instability: Not on file Review of Systems Constitutional: Negative for fever. Cardiovascular: Negative for chest pain. Gastrointestinal: Negative for bowel incontinence. Genitourinary: Negative for bladder incontinence. Musculoskeletal: Positive for back pain. Neurological: Negative for tingling, weakness and numbness. Vital Signs: BP 128/72 Pulse 68 Resp 16 Ht 162.6 cm (5' 4 ) Wt 92.5 kg (204 lb) SpO2 96% BMI 35.02 kg/m Physical Exam: GENERAL - Healthy patient [...] normal pain. Gait is normal. Assessment/Treatment Plan: Roz was seen today for back pain. Diagnoses [...] reviewed and used to explain the condition. OARRS: Reviewed. Scribe Statement: Scribed for and in the presence of NILDA TURNER by Estefany Hoffman CNA. Provider Statement: I, NILDA TURNER, personally performed the services described in the documentation, as scribed by Estefany Hoffman CNA in my presence, and it is both accurate and complete. Estefany Hoffman CNA 12/28/23 1520 NILDA Turner 01/02/24 0858 documented in this encounter [facility] 12-28-2023 Instructions Estefany Hoffman CNA - 12/28/2023 2:30 PM EDT Facet Injection / Medial Branch Block [...] nearest emergency room. documented in this encounter [facility] 10-03-2023 History of Present illness Narrative [facility] [address] [place] [address] Patient: Roz Tavares Sex: female : 1960 Age: 63 y.o. PCP: SHAIKH JOVANI MD 10/03/2023 Roz L Anusha is here for a(n) post procedure follow up bilateral SI joint injection on 09/15/2023 with at least 90% relief Date of onset of pain: 2019 , pain has lasted greater than 3 months. Pain scale before treatment: 10/10 Pre-op pain score: 8/10 Post-op pain score: 10/10 2 hour post-op pain score: 6/10 4 hour post-op pain score: 4/10 Percentage of relief after and duration: 90% relief started the day after the procedure and still continues, relief varies since procedure but feels great overall Pain scale after treatment: 0/10 Chief Complaint Patient presents with Back Pain HPI: PT/HEP 07/2022 not helpful Back: 09/23/22 Caudal w/60% relief for 3 days 10/21/22 Caudal w/60% relief continued 12/23/22 Bilateral SI with 80% continued relief 2023 bilateral sacroiliac injection with 100% relief that continues as of this date bilateral SI joint injection on 09/15/2023 with at least 90% relief pre-pain 10/10 post pain 0/10 Back Pain This is a chronic problem. The current episode started more than 1 year ago (@ 2020). The problem occurs constantly (much better since 09/15/2023 procedure). The problem has been gradually improving since onset. The pain is present in the lumbar spine. The pain does not radiate. The pain is at a severity of 0/10. The patient is experiencing no pain. Worse during: varies. The symptoms are aggravated by standing. Stiffness is present: na. Associated symptoms include numbness (intermittently to right foot- SELDOM; much improved since 09/15/2023 procedure). Pertinent negatives include no bladder incontinence, bowel [...] 04/03/2018 Performed by Chepe Bustamante MD at [facility] CYSTOSCOPY W/ URETERAL STENT PLACEMENT 2014 x 2 DILATION AND CURETTAGE OF UTERUS 1981, 1983 HYSTERECTOMY 1996 total INJECTION BLOCK EPIDURAL CAUDAL STEROID N/A 10/21/2022 Performed by Roly Dickens MD at [facility] INJECTION BLOCK EPIDURAL CAUDAL STEROID N/A 09/23/2022 Performed by Roly Dickens MD at [facility] INJECTION BLOCK SACROILIAC JOINT Bilateral 09/15/2023 Performed by Roly Dickens MD at [facility] INJECTION BLOCK SACROILIAC JOINT Bilateral 2023 Performed by Roly Dickens MD at [facility] INJECTION BLOCK SACROILIAC JOINT Bilateral 12/23/2022 Performed by Roly Dickens MD at [facility] OOPHORECTOMY OTHER SURGICAL HISTORY 1982 uterus reconstruction REPLACEMENT TOTAL JOINT KNEE Right 09/02/[address]vester MD at [facility] TONSILLECTOMY Allergies Allergen Reactions Avelox [Moxifloxacin] [...] file Tobacco Use Smoking status: Every Day Current packs/day: 1.00 Average packs/day: 1 pack/day for 41.3 years (41.3 ttl pk-yrs) Types: Cigarettes Start date: 06/12/1982 Smokeless tobacco: Never Vaping Use Vaping status: Never Used Substance and Sexual Activity Alcohol use: Yes Comment: rarely Drug use: No Sexual activity: Defer Partners: Male Other Topics Concern Not on file Social History Narrative Not on file Social Determinants of Health Financial Resource Strain: Not on file Food Insecurity: No Food Insecurity (10/03/2023) Hunger Screening Food Insecurity - Worry: Never True Food Insecurity - Inability: Never True Transportation Needs: Not on file Physical Activity: Not on file Stress: Not on file Social Connections: Not on file Interpersonal Safety: Not on file Housing Instability: Not on file Review of Systems Constitutional: Negative. Negative for chills, fatigue and fever. HENT: Negative. Eyes: Negative. Respiratory: Positive for cough. Negative for shortness of breath. Cardiovascular: Negative. Negative for chest pain. Gastrointestinal: Positive for constipation. Negative for bowel incontinence and diarrhea. Endocrine: Negative. Genitourinary: Negative. Negative for bladder incontinence, difficulty urinating and frequency. Musculoskeletal: Positive for back pain. Skin: Negative for rash and wound. Allergic/Immunologic: Negative. Neurological: Positive for numbness (intermittently to right foot- SELDOM; much improved since 09/15/2023 procedure). Negative for tingling and weakness. Hematological: Negative. Vital Signs: BP 129/69 (BP Site: Right Arm, BP Postition: Sitting) Pulse 67 Resp 20 Physical Exam: GENERAL - Healthy patient that [...] distributions. Straight Leg Raise is negative bilaterally. Gait is normal. Assessment/Treatment Plan: Roz was seen today for back pain. Diagnoses and all orders for this visit: Lumbosacral spondylosis without myelopathy Monitor Follow up early January The medications prescribed have been reviewed for [...] prescribe any controlled substance from this practice. Treatment plans discussed but not opted for at this time: Repeat SI joint injectionc. Pain is under adequate control. It does appear that the patient benefited from the previous injection and the benefit has continued through this visit. At this time, we will monitor the patient s symptoms from an interventional standpoint and consider another injection in the future if the patient s symptoms return or intensify severely. The patient was made aware that they should call if symptoms worsen or if their pain begins to have a negative impact on their quality of life and activities of daily living again. The spine model was demonstrated and MRI was reviewed and used to explain the condition. OARRS: Reviewed. Scribe Statement: Scribed for and in the presence of NILDA TURNER by Estefany Hoffman CNA. Provider Statement: I, NILDA TURNER, personally performed the services described in the documentation, as scribed by Estefany Hoffman CNA in my presence, and it is both accurate and complete. Estefany Hoffman CNA 10/03/23 1059 NILDA Turner 10/03/23 1132 documented in this encounter [facility] 08-24-2023 History of Present illness Narrative [facility] [address] [place] [address] Patient: Roz Tavares Sex: female : 1960 Age: 63 y.o. PCP: SHAIKH JOVANI MD 08/24/2023 Roz Tavares is here for a(n) follow up. She [...] 04/03/2018 Performed by Chepe Bustamante MD at [facility] CYSTOSCOPY W/ URETERAL STENT PLACEMENT 2014 x 2 DILATION AND CURETTAGE OF UTERUS 1981, 1983 HYSTERECTOMY 1996 total INJECTION BLOCK EPIDURAL CAUDAL STEROID N/A 10/21/2022 Performed by Roly Dickens MD at [facility] INJECTION BLOCK EPIDURAL CAUDAL STEROID N/A 09/23/2022 Performed by Roly Dickens MD at [facility] INJECTION BLOCK SACROILIAC JOINT Bilateral 2023 Performed by Roly Dickens MD at [facility] INJECTION BLOCK SACROILIAC JOINT Bilateral 12/23/2022 Performed by Roly Dickens MD at [facility] OOPHORECTOMY OTHER SURGICAL HISTORY 1982 uterus reconstruction REPLACEMENT TOTAL JOINT KNEE Right 09/02/[address] MD at [facility] TONSILLECTOMY Allergies Allergen Reactions Avelox [Moxifloxacin] [...] normal pain. Gait is normal. Assessment/Treatment Plan: Roz was seen today for back pain. Diagnoses [...] Turner 08/24/23 1208 documented in this encounter [facility] 08-24-2023 Instructions Estefany Hoffman CNA - 08/24/2023 [...] nearest emergency room. documented in this encounter [facility] 07-17-2023 History of Present illness Narrative Associated Problem(s): Tobacco abuse Patient [...] well on it. Associated Problem(s): HLD (hyperlipidemia) (CMS/HCC) On Lipitor. C/w same. Associated Problem(s): URTI (acute upper respiratory infection) She reports feeling tired for past few days. For a couple of days, she also felt lightheaded and dizzy. Her BP was at goal and her blood glucose were normal Patient's exam indicated bilateral suppurative otitis media along with pharyngitis. Will call in oral Azithromycin for her. Associated Problem(s): Primary hypertension (CMS/HCC) Asymptomatic. Denies CP, SOB, [...] bp but was normal Subjective Patient ID: Roz Tavares is a 63 y.o. female who presents [...] disorder with single episode, in full remission ([facility]) Well controlled. Last appointment, she was weaned off of Prozac and her dose was decreased to 10 mg daily. Doing well on it. Follow up in about 6 months (around 01/15/2024). documented in this encounter [facility] note Diagnosis Obstructive sleep apnea syndrome- Primary Obstructive sleep apnea (adult) (pediatric) Hyperlipidemia, unspecified hyperlipidemia type (CMS/HCC) Primary hypertension ([facility]/HCC) Unspecified essential hypertension URTI (acute upper respiratory infection) Acute upper respiratory infections of unspecified site Major depressive disorder with single episode, in full remission ([facility]) Tobacco abuse Tobacco use disorder documented in [...] Hyperlipidemia, unspecified hyperlipidemia type (CMS/HCC) Primary hypertension ([facility]/HCC) Unspecified essential hypertension URTI (acute upper respiratory infection) Acute upper respiratory infections of unspecified site Major depressive disorder with single episode, in full remission ([facility]) Tobacco abuse Tobacco use disorder Mixed hyperlipidemia ([facility]/HCC)- Primary Mixed hyperlipidemia Major depressive disorder with single episode, in full remission ([facility]) BMI 35.0-35.9,adult Hypersomnia with sleep apnea- Primary Hypersomnia with sleep apnea, unspecified Obstructive sleep apnea syndrome Obstructive sleep apnea (adult) (pediatric) Primary hypertension ([facility]/HCC) Unspecified essential hypertension [facility] Diagnosis Obstructive sleep apnea syndrome- Primary Obstructive sleep apnea (adult) (pediatric) Hyperlipidemia, unspecified hyperlipidemia type (CMS/HCC) Primary hypertension (CMS/HCC) Unspecified essential hypertension URTI (acute upper respiratory infection) Acute upper respiratory infections of unspecified site Major depressive disorder with single episode, in full remission ([facility]) Tobacco abuse Tobacco use disorder Mixed hyperlipidemia ([facility])- Primary Mixed hyperlipidemia Major depressive disorder with single episode, in full remission ([facility]) BMI 35.0-35.9,adult Hypersomnia with sleep apnea- Primary Hypersomnia with sleep apnea, unspecified Obstructive sleep apnea syndrome Obstructive sleep apnea (adult) (pediatric) Major depressive disorder with single episode, in full remission ([facility]) [facility] Diagnosis Obstructive sleep apnea syndrome- Primary Obstructive sleep apnea (adult) (pediatric) Hyperlipidemia, unspecified hyperlipidemia type ([facility]) Primary hypertension ([facility]) Unspecified essential hypertension URTI (acute upper respiratory infection) Acute upper respiratory infections of unspecified site Major depressive disorder with single episode, in full remission ([facility]) Tobacco abuse Tobacco use disorder Mixed hyperlipidemia ([facility])- Primary Mixed hyperlipidemia Major depressive disorder with single episode, in full remission [place] BMI 35.0-35.9,adult Hypersomnia with sleep apnea- Primary Hypersomnia with sleep apnea, unspecified Obstructive sleep apnea syndrome Obstructive sleep apnea (adult) (pediatric) Primary osteoarthritis of left hip Primary osteoarthritis of right knee Spinal stenosis of lumbar region with neurogenic claudication documented [facility] Diagnosis Obstructive sleep apnea syndrome- Primary Obstructive sleep apnea (adult) (pediatric) Hyperlipidemia, unspecified hyperlipidemia type ([facility]) Primary hypertension ([facility]) Unspecified essential hypertension URTI (acute upper respiratory infection) Acute upper respiratory infections of unspecified site Major depressive disorder with single episode, in full remission ([facility] Tobacco abuse Tobacco use disorder Mixed hyperlipidemia ([facility])- Primary Mixed hyperlipidemia Major depressive disorder with single episode, in full remission ([facility]) BMI 35.0-35.9,adult Hypersomnia with sleep apnea- Primary Hypersomnia with sleep apnea, unspecified Obstructive sleep apnea syndrome Obstructive sleep apnea (adult) (pediatric) Primary hypertension ([facility]) Unspecified essential hypertension documented [facility] Diagnosis Obstructive sleep apnea syndrome- Primary Obstructive sleep apnea (adult) (pediatric) Hyperlipidemia, unspecified hyperlipidemia type ([facility]) Primary hypertension ([facility]) Unspecified essential hypertension URTI (acute upper respiratory infection) Acute upper respiratory infections of unspecified site Major depressive disorder with single episode, in full remission ([facility]) Tobacco abuse Tobacco use disorder Mixed hyperlipidemia ([facility])- Primary Mixed hyperlipidemia Major depressive disorder with single episode, in full remission ([facility]) BMI 35.0-35.9,adult Hypersomnia with sleep apnea- Primary Hypersomnia with sleep apnea, unspecified Obstructive sleep apnea syndrome Obstructive sleep apnea (adult) (pediatric) Upper respiratory tract infection, unspecified type- Primary Major depressive disorder with single episode, in full remission ([facility]) URTI (acute upper respiratory infection) Acute upper respiratory infections of unspecified site documented [facility] Diagnosis Hypersomnia with sleep apnea- Primary Hypersomnia with sleep apnea, unspecified Obstructive sleep apnea syndrome Obstructive sleep apnea (adult) (pediatric) documented [facility]* Diagnosis Obstructive sleep apnea syndrome- Primary Obstructive sleep apnea (adult) (pediatric) Hyperlipidemia, unspecified hyperlipidemia type ([facility]) Primary hypertension ([facility]) Unspecified essential hypertension URTI (acute upper respiratory infection) Acute upper respiratory infections of unspecified site Major depressive disorder with single episode, in full remission ([facility] Tobacco abuse Tobacco use disorder Mixed hyperlipidemia ([facility])- Primary Mixed hyperlipidemia Major depressive disorder with single episode, in full remission ([facility] BMI 35.0-35.9,adult Hypersomnia with sleep apnea- Primary Hypersomnia with sleep apnea, unspecified Obstructive sleep apnea syndrome Obstructive sleep apnea (adult) (pediatric) Upper respiratory tract infection, unspecified type- Primary Major depressive disorder with single episode, in full remission ([facility] URTI (acute upper respiratory infection) Acute upper respiratory infections of unspecified site Tobacco abuse Tobacco use disorder documented [facility] Diagnosis Obstructive sleep apnea syndrome- Primary Obstructive sleep apnea (adult) (pediatric) Hyperlipidemia, unspecified hyperlipidemia type ([facility]) Primary hypertension ([facility]) Unspecified essential hypertension URTI (acute upper respiratory infection) Acute upper respiratory infections of unspecified site Major depressive disorder with single episode, in full remission ([facility]) Tobacco abuse Tobacco use disorder Mixed hyperlipidemia ([facility])- Primary Mixed hyperlipidemia Major depressive disorder with single episode, in full remission ([facility]) BMI 35.0-35.9,adult Hypersomnia with sleep apnea- Primary Hypersomnia with sleep apnea, unspecified Obstructive sleep apnea syndrome Obstructive sleep apnea (adult) (pediatric) Upper respiratory tract infection, unspecified type- Primary Major depressive disorder with single episode, in full remission ([facility]) URTI (acute upper respiratory infection) Acute upper respiratory infections of unspecified site Tobacco abuse Tobacco use disorder Major depressive disorder with single episode, in full remission ([facility]) [facility] Diagnosis Osteopenia, unspecified location [facility]* Diagnosis Tobacco abuse Tobacco use disorder documented in [facility]* Diagnosis Primary hypertension ([facility])- Primary Unspecified essential hypertension documented in this encounter [facility]* Diagnosis Primary hypertension ([facility])- Primary Unspecified essential hypertension documented [facility]* Diagnosis Obstructive sleep apnea syndrome- Primary Obstructive sleep apnea (adult) (pediatric) Hyperlipidemia, unspecified hyperlipidemia type ([facility]) Primary hypertension ([facility]) Unspecified essential hypertension URTI (acute upper respiratory infection) Acute upper respiratory infections of unspecified site Major depressive disorder with single episode, in full remission ([facility]) Tobacco abuse Tobacco use disorder Mixed hyperlipidemia ([facility])- Primary Mixed hyperlipidemia Major depressive disorder with single episode, in full remission ([facility]) BMI 35.0-35.9,adult Hypersomnia with sleep apnea- Primary Hypersomnia with sleep apnea, unspecified Obstructive sleep apnea syndrome Obstructive sleep apnea (adult) (pediatric) Upper respiratory tract infection, unspecified type- Primary Major depressive disorder with single episode, in full remission ([facility]) URTI (acute upper respiratory infection) Acute upper respiratory infections of unspecified site Major depressive disorder with single episode, in full remission ([facility]) [facility]* Diagnosis Primary osteoarthritis of left hip- Primary Lumbosacral spondylosis without myelopathy [facility] Diagnosis Lumbosacral spondylosis without myelopathy- Primary [facility] Diagnosis Obstructive sleep apnea syndrome- Primary Obstructive sleep apnea (adult) (pediatric) Hyperlipidemia, unspecified hyperlipidemia type ([facility]/HCC) Primary hypertension ([facility]) Unspecified essential hypertension URTI (acute upper respiratory infection) Acute upper respiratory infections of unspecified site Major depressive disorder with single episode, in full remission ([facility]) Tobacco abuse Tobacco use disorder Mixed hyperlipidemia (CMS/HCC)- Primary Mixed hyperlipidemia Major depressive disorder with single episode, in full remission ([facility]) BMI 35.0-35.9,adult Hypersomnia with sleep apnea- Primary Hypersomnia with sleep apnea, unspecified Obstructive sleep apnea syndrome Obstructive sleep apnea (adult) (pediatric) Upper respiratory tract infection, unspecified type- Primary Major depressive disorder with single episode, in full remission ([facility]) URTI (acute upper respiratory infection) Acute upper respiratory infections of unspecified site Osteopenia, unspecified location Major depressive disorder with single episode, in full remission ([facility]) documented in this encounter [facility]* Diagnosis Disorder of sacrum- Primary Disorders of sacrum Disorder of sacrum- Primary Disorders of sacrum Disorder of sacrum Disorders of sacrum [facility] Diagnosis Disorder of sacrum- Primary Disorders of sacrum Disorder of sacrum Disorders of sacrum [facility]* Diagnosis Spinal stenosis of lumbar region with neurogenic claudication- Primary Spinal stenosis of lumbar region with neurogenic claudication- Primary Spinal stenosis of lumbar region with neurogenic claudication [facility]* Diagnosis Disorder of sacrum- Primary Disorders of sacrum Disorder of sacrum- Primary Disorders of sacrum Disorder of sacrum Disorders of sacrum [facility]* Diagnosis Primary osteoarthritis of left hip- Primary Primary osteoarthritis of left hip- Primary Primary osteoarthritis of left hip documented in this encounter [facility]* Diagnosis Obstructive sleep apnea syndrome- Primary Obstructive sleep apnea (adult) (pediatric) Hyperlipidemia, unspecified hyperlipidemia type ([facility]) Primary hypertension ([facility]) Unspecified essential hypertension URTI (acute upper respiratory infection) Acute upper respiratory infections of unspecified site Major depressive disorder with single episode, in full remission ([facility]) Tobacco abuse Tobacco use disorder Mixed hyperlipidemia ([facility])- Primary Mixed hyperlipidemia Major depressive disorder with single episode, in full remission ([facility]) BMI 35.0-35.9,adult Hypersomnia with sleep apnea- Primary Hypersomnia with sleep apnea, unspecified Obstructive sleep apnea syndrome Obstructive sleep apnea (adult) (pediatric) Upper respiratory tract infection, unspecified type- Primary Major depressive disorder with single episode, in full remission (CMS/HCC) URTI (acute upper respiratory infection) Acute upper respiratory infections of unspecified site Primary hypertension (CMS/HCC) Unspecified essential hypertension documented in this encounter [facility] on filedocumented in [facility] encounter[facility] System[facility]ructionsNot on filedocumented in this encounter[facility] SystemInstructionsNot on filedocumented in this encounterPro[facility] SystemInstructionsNot on filedocumented in this [facility] Reason for referral (narrative)* Consultation (Routine) - Pending Review Specialty Diagnoses / Procedures Referred By Contac t Referred To Contact Sleep Medicine Diagnoses Obstructive sleep apnea syndrome Procedures NC OFFICE/OUTPATIENT NEW HIGH MDM 60 MINUTES Shaikh Hahn MD [address] [place] [address] Osiris Bowden MD [address] [place] [address] [place] [address] Referral ID Status Reason Start Date Expiration Date Visits Requested Visits Authorized [id number] Pending Review Specialty Services Required 07/17/2023 01/13/2024 1 1 KELLEY Doty for referral (narrative)* Consultation (Routine) - Pending Review Specialty Diagnoses / Procedures Referred By Kelsey t Referred To Contact Pulmonary Disease Diagnoses Obstructive sleep apnea syndrome Procedures NC OFFICE/OUTPATIENT NEW HIGH MDM 60 MINUTES Sindhu Tong NP [address] [place] [address] Rober Aguilar MD [address] [place] [address] Referral ID Status Reason Start Date Expiration Date Visits Requested Visits Authorized [id number] Pending Review Specialty Services Required 03/14/2024 09/10/2024 1 1 KELLEY Doty for referral (narrative)* Consultation (Routine) - Authorized Specialty Diagnoses / Procedures Referred By Contac t Referred To Contact Pulmonary Disease Diagnoses Hypersomnia with sleep apnea Obstructive sleep apnea syndrome Procedures NC OFFICE/OUTPATIENT NEW HIGH MDM 60 MINUTES Sindhu Tong NP [address] [facility] [place] [address] Vladislav Cyr MD [address] [address] Referral ID Status Reason Start Date Expiration Date Visits Requested Visits Authorized [id number] Authorized Specialty Services Required 02/22/2024 08/20/2024 1 1 [facility] Summary Purpose Family [...] operating room: INJECTION BLOCK SACROILIAC JOINT Yadiel Scott PA [address], [address] [place] [phone] Referral ID Status Reason Start Date Expiration Date V isits Requested Visits Authorized [id number] Pending Review 12/28/2023 12/27/2024 1 1 Referral ID Status Reason Start Date Expiration Date V isits Requested Visits Authorized [id number] Pending Review 08/24/2023 08/23/2024 1 1 Specialty Diagnoses / Procedures Referred By Contac t Referred To Contact Diagnoses Spinal stenosis of lumbar region with neurogenic claudication Procedures Case request operating room: INJECTION BLOCK EPIDURAL CAUDAL STEROID Yadiel Scott PA [address], [address] [place] [id number] Referral ID Status Reason Start Date Expiration Date V isits Requested Visits Authorized [id number] Pending Review 02/29/2024 02/28/2025 1 1 Additional Source Comments INFORMATION SOURCE (unrecogn ized section and content) DATE CREATED AUTHOR 08/19/2019 [facility] DATE CREATED AUTHOR AUTHOR'S ORGANIZ ATION 06/03/2022 [facility] DATE CREATED AUTHOR AUTHOR'S ORGANIZ ATION 02/24/2024 [facility] EPIC DATE CREATED AUTHOR AUTHOR'S ORGANIZ ATION 07/11/2024 [facility] Care Teams (unrecognized sec tion and content) Quality Auditor Relationship Specialty Start Date End Date Shaikh Hahn MD PCP - General Internal Medicine 11/28/22 Quality Auditor Relationship Specialty Start Date End Date Shaikh Hahn MD PCP - General Internal Medicine 11/28/22 Quality Auditor Relationship Specialty Start Date End Date Bahman Mcginnis MD [address] [place] [address] PCP - General Family Medicine 01/24/24 Sindhu Tong NP [address] [place] [address] Nurse Practitioner Family Medicine 01/24/24 Quality Auditor Relationship Specialty Start Date End Date Bahman Mcginnis MD [address] [place] [address] PCP - General Family Medicine 01/24/24 Sindhu Tong NP [address] [place] [address] Nurse Practitioner Family Medicine 01/24/24 Quality Auditor Relationship Specialty Start Date End Date Bahman Mcginnis MD [address] [place] [address] PCP - General Family Medicine 01/24/24 Sindhu Tong NP [address] [place] [address] Nurse Practitioner Family Medicine 01/24/24 Quality Auditor Relationship Specialty Start Date End Date Bahman Mcginnis MD [address] [place] [address] PCP - General Family Medicine 01/24/24 Sindhu Tong NP [address] [place] [address] Nurse Practitioner Family Medicine 01/24/24 Quality Auditor Relationship Specialty Start Date End Date Bahman Mcginnis MD [address] [place] [address] PCP - General Family Medicine 01/24/24 Sindhu Tong NP [address] [place] [address] Nurse Practitioner Family Medicine 01/24/24 Quality Auditor Relationship Specialty Start Date End Date Bahman Mcginnis MD [address] [place] [address] PCP - General Family Medicine 01/24/24 Sindhu Tnog NP [address] [place] [address] Nurse Practitioner Family Medicine 01/24/24 Quality Auditor Relationship Specialty Start Date End Date Bahman Mcginnis MD [address] [place] [address] PCP - General Family Medicine 01/24/24 Sindhu Tong NP [address] [place] [address] Nurse Practitioner Family Medicine 01/24/24 Quality Auditor Relationship Specialty Start Date End Date Bahman Mcginnis MD [address] [place] [place] [phone] PCP - General Family Medicine 01/24/24 Sindhu Tong NP [address] [place] [address] Nurse Practitioner Family Medicine 01/24/24 Quality Auditor Relationship Specialty Start Date End Date Bahman Mcginnis MD [address] [place] [address] PCP - General Family Medicine 01/24/24 Sindhu Tong NP [address] [place] [address] Nurse Practitioner Family Medicine 01/24/24 Quality Auditor Relationship Specialty Start Date End Date Bahman Mcginnis MD [address] [place] [place] [address] PCP - General Family Medicine 01/24/24 Sindhu Tong NP [address] [place] [address] Nurse Practitioner Family Medicine 01/24/24 Quality Auditor Relationship Specialty Start Date End Date Bahman Mcginnis MD [address] [place] [address] PCP - General Family Medicine 01/24/24 Sindhu Tong NP [address] [place] [address] Nurse Practitioner Family Medicine 01/24/24 Quality Auditor Relationship Specialty Start Date End Date Bahman Mcginnis MD [address] [place] [phone] PCP - General Family Medicine 01/24/24 Sindhu Tong NP [address] [place] [address] Nurse Practitioner Family Medicine 01/24/24 Quality Auditor Relationship Specialty Start Date End Date Bahman Mcginnis MD [address] [place] [phone] PCP - General Family Medicine 01/24/24 Sindhu Tong NP [address] [place] [address] Nurse Practitioner Family Medicine 01/24/24 Quality Auditor Relationship Specialty Start Date End Date Bahman Mcginnis MD [address] [place] [phone] PCP - General Family Medicine 01/24/24 Sindhu Tong NP [address] [place] [address] Nurse Practitioner Family Medicine 01/24/24 Quality Auditor Relationship Specialty Start Date End Date Bahman Mcginnis MD [address] [place] [phone] PCP - General Family Medicine 01/24/24 Sindhu Tong NP [address] [place] [address] Nurse Practitioner Family Medicine 01/24/24 Quality Auditor Relationship Specialty Start Date End Date Shaikh Hahn MD PCP - General Internal Medicine 11/16/21 Quality Auditor Relationship Specialty Start Date End Date Shaikh Hahn MD [address] [place] [address] PCP - General Internal Medicine 11/16/21 Quality Auditor Relationship Specialty Start Date End Date Bahman Mcginnis MD [address] [place] [address] PCP - General Family Medicine 01/24/24 Sindhu Tong NP [address] [place] [address] Nurse Practitioner Family Medicine 8/14/24 Quality Auditor Relationship Specialty Start Date End Date Fawwad, Britt, MD PCP - General Internal Medicine 11/16/21 Quality Auditor Relationship Specialty Start Date End Date Shaikh Hahn MD [address] [place] [address] PCP - General Internal Medicine 11/16/21 Quality Auditor Relationship Specialty Start Date End Date Shaikh Hahn MD PCP - General Internal Medicine 11/16/21 Quality Auditor Relationship Specialty Start Date End Date Shaikh Hahn MD PCP - General Internal Medicine 11/16/21 Quality Auditor Relationship Specialty Start Date End Date Shaikh Hahn MD PCP - General Internal Medicine 11/16/21 Reason for Visit (unrecogniz ed section and content) Reason Comments Follow-up Reason Comments Med Refill Reason Onset Date Comments Med Refill 04/09/2024 Reason Comments Nasal Congestion Headache , cough and ears hurting Reason Onset Date Comments Med Refill 02/19/2024 Reason Onset Date Comments Med Refill 02/20/2024 Reason Comments Back Pain Hip Pain Reason Comments Back Pain Reason Onset Date Comments Med Refill 07/25/2024 Reason Comments Back Pain Reason Onset Date Comments Med Refill 04/26/2024 Reason Onset Date Comments Med Refill 08/01/2024 FOR RECORDS PERTAINING TO PATIENTS WHO ARE [...] BE BASED ON THE PRIMARY CLINICAL RECORDS. [facility] [employer] [facility]. provides no warranty or guarantee of the accuracy or completeness of information in this document.
== END 2024-08-21 20:45 | disposition home or self-care (01) ==
LOC: SLEEP 20:44
PROVIDERS: PCP Internal Medicine; Visit Provider Internal Medicine
DX: G47.33 Obstructive sleep apnea (adult) (pediatric) (principal); G47.11 Idiopathic hypersomnia with long sleep time
CPT/HCPCS: 95810

== ENCOUNTER 2024-08-26 08:48 | Outpatient (OUT) | payer OTHER, SELFPAY ==
[2024-08-26 09:10] LABS: Basophils Percent Auto 0.5 % (0.2-2.0); Eosinophils Absolute Auto 0.1 10^3/uL (0.0-0.7); Eosinophils Percent Auto 1.4 % (0.9-7.0); Hematocrit 43.3 % (36.0-48.0); Hemoglobin 14.5 g/dL (12.0-16.0); Immature Granulocytes Abs Auto 0.02 10^3/uL (0.00-0.03); Immature Granulocytes Pct Auto 0.3 % (0.0-0.5); Lymphocytes Absolute Auto 2.1 10^3/uL (1.2-3.8); Lymphocytes Percent Auto 28.7 % (20.5-60.0); Mean Corpuscular HGB Conc 33.5 g/dL (29.9-35.2); Mean Corpuscular Hemoglobin 30.9 pg (26.7-34.0); Mean Corpuscular Volume 92.1 fL (81.0-99.0); Mean Platelet Volume 8.4 fL (9.5-13.5); Monocytes Absolute Auto 0.6 10^3/uL (0.3-0.8); Monocytes Percent Auto 8.6 % (1.7-12.0); Neutrophils Absolute Auto 4.4 10^3/uL (1.4-6.5); Neutrophils Percent Auto 60.5 % (43.0-75.0); Platelet Count 363 10^3/uL (150-450); Red Cell Distribution Width 13.8 % (11.0-15.0); White Blood Count 7.3 10^3/uL (4.0-11.0)
[2024-08-26 09:31] LABS: Bilirubin Urine NEGATIVE (NEGATIVE); Blood Urine NEGATIVE (NEGATIVE); Clarity Urine CLEAR (CLEAR); Color Urine YELLOW (YELLOW); Glucose Urine UA NEGATIVE (NEGATIVE); Ketones Urine NEGATIVE (NEGATIVE); Leukocyte Esterase Urine NEGATIVE (NEGATIVE); Nitrite Urine NEGATIVE (NEGATIVE); Protein Urine NEGATIVE (NEG/TRACE); Urine Microscopic Indicated NO; Urobilinogen Urine 0.2 EU/dL (0.2-1.0); pH Urine 6.5 (5.0-9.0)
[2024-08-26 09:42] LABS: Creatinine Urine Random 192.85 mg/dL (20.00-300.00); Microalbumin Urine Random <1.3 mg/dL (<=30.0)
[2024-08-26 10:21] LABS: Alanine Aminotransferase 22 U/L (14-59); Albumin Globulin Ratio 1.1; Albumin Level 3.7 g/dL (3.4-5.0); Alkaline Phosphatase 126 U/L (46-116); Anion Gap 10.6; Aspartate Amino Transferase 11 U/L (15-37); BUN Creatinine Ratio 25.3; Bilirubin Total 0.3 mg/dL (0.2-1.0); Calcium 9.1 mg/dL (8.5-10.1); Carbon Dioxide 29.5 mmol/L (21.0-32.0); Chloride 102 mmol/L (98-107); Cholesterol 183 mg/dL (<=200); Estimated GFR (African America >60 (>=60 mL/min/1.73m^2); Estimated GFR (Non-African Ame >60 (>=60 mL/min/1.73m^2); Globulin 3.3 g/dL; Glucose 101 mg/dL (74-106); HDL Cholesterol 46 mg/dL (40-60); Potassium 4.1 mmol/L (3.5-5.1); Sodium 138 mmol/L (136-145); Thyroid Stimulating Hormone 1.019 uIU/mL (0.358-3.740); Triglycerides 175 mg/dL (<=150)
== END 2024-08-26 08:49 | disposition home or self-care (01) ==
LOC: LAB 08:50
PROVIDERS: PCP Nurse Practitioner; Visit Provider Nurse Practitioner
DX: G47.33 Obstructive sleep apnea (adult) (pediatric) (principal); F17.210 Nicotine dependence, cigarettes, uncomplicated; I10 Essential (primary) hypertension; E78.2 Mixed hyperlipidemia; M81.0 Age-related osteoporosis without current pathological fracture; F32.5 Major depressive disorder, single episode, in full remission
CPT/HCPCS: 36415; 80053; 80061; 81003; 82043; 82306; 82570; 84443; 85025

== ENCOUNTER 2024-09-03 19:45 | Outpatient (OUT) | payer OTHER, SELFPAY ==
--- OUTSIDE RECORDS SUMMARY | 2024-09-03 19:48 | XMS_ITS | CCD ---
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 Role Phone JOVANI, JAMESON H Primary Care Unavailable DR Chetna Byers Consulting Unavailable FAWWAD, JAMESON H Admitting Unavailable FAWWAYaima, JAMESON H Attending Unavailable JOVANI, JAMESON H Consulting Unavailable FAWWAD, JAMESON H Primary Care Unavailable FAWWAD, JAMESON H Admitting Unavailable FAWWAD, JAMESON H Attending Unavailable JOVANI, JAMESON H Consulting Unavailable Shaikh Hahn MD Primary Care Provider [phone] Bahman Mcginnis MD Primary Care Provider Ran CASE TECHNICIAN, Sindhu Unavailable Jovani ASKEW, Primary Care Provider Shaikh Hahn MD Primary Care Provider Ran CASE TECHNICIAN, Sindhu Unavailable ESTEFANY GARCIA Attending Unavailable SHAIKH HAHN Attending Unavailable ALEXIS RUBALCAVA Attending Unavailable SINDHU TONG Attending UnavailSINDHU Garay Attending UnavailSINDHU Garay Attending UnavailROLY Cardenas Admitting Unavailable ROLY DICKENS Attending Unavailable JOVANI, Referring Unavailable JOVANI, JAMESON Primary Care Unavailable ROLY DICKENS Attending Unavailable ROLY DICKENS Referring Unavailable JOVANI, JAMESON Primary Care Unavailable MELLY RADER Attending Unavailable JOVANI, JAMESON Primary Care Unavailable YADIEL SCOTT Attending Unavailable JOVANI, JAMESON Referring Unavailable [facility] Primary Care Unavailable YADIEL SCOTT Attending Unavailable [facility] Referring Unavailable [facility] Primary Care Unavailable DICKENS, ROLY E Admitting Unavailable DICKENS, ROLY E Attending Unavailable [facility] Referring Unavailable [facility] Primary Care Unavailable ZEINA SCOTT Attending Unavailable [facility] Referring Unavailable [facility] Primary Care Unavailable DICKENS, ROLY E Attending Unavailable DICKENS, ROLY E Referring Unavailable [facility] Primary Care Unavailable DICKENS, ROLY E Admitting Unavailable DICKENS, ROLY E Attending Unavailable DICKENS, ROLY E Referring Unavailable [facility] Primary Care Unavailable NIAYDIEL PADRON S Attending Unavailable [facility] Referring [facility]available [facility] Primary Care Unavailable DICKENS, ROLY E Admitting Unavailable DICKENS, ROLY E Attending Unavailable [facility] Referring Unavailable [facility] Primary Care Unavailable DICKENS, ROLY E Attending Unavailable DICKENS, ROLY E Referring Unavailable [facility] Primary Care Unavailable NIENBERGYADIEL S Attending Unavailable [facility] Referring Unavailable [facility], [facility] Primary Care Unavailable DICKENS, ROLY E Admitting Unavailable DICKENS, ROLY E Attending Unavailable [facility] Referring [facility]available [facility] Primary Care Unavailable DICKENS, ROLY E Attending Unavailable DICKENS, ROLY E Referring Unavailable [facility] Primary Care Unavailable YADIEL SCOTT Attending Unavailable [facility] Referring Unavailable [facility] Primary Care Unavailable DICKENS, ROLY E Admitting Unavailable DICKENS, ROLY E Attending Unavailable [facility] Referring Unavailable [facility] Primary Care Unavailable DICKENS, ROLY E Attending Unavailable DICKENS, ROLY E Referring Unavailable [facility] Primary Care Unavailable YADIEL SCOTT Attending Unavailable [facility] Referring Unavailable [facility] Primary Care Unavailable YADIEL SCOTT Attending Unavailable YADIEL SCOTT Referring Unavailable [facility] Primary Care Unavailable YADIEL SCOTT Attending Unavailable FAWWAD, JAMESON Referring Unavailable SHAIKH HAHN Primary Care Unavailable Allergies Allergy Classification Reported Allergen(s) Allergy Type Date of Onset Reaction(s) Facility (1 source) bee venom Drug allergy (disorder) [facility] Repository (1 source) Cephalexin Drug Allergy [facility] Repository (3 sources) Codeine; Translations: [CODEINE] Drug Allergy 05-18-20 16 [facility] (1 source) moxifloxacin Drug Allergy [facility] (1 source) Sulfamethoxazole / Trimethoprim Drug Allergy [facility] (1 source) traMADol Drug Allergy [facility] (20 sources) Cephalexin Drug Allergy 11-26-19 23 Hives [facility] (20 sources) Codeine Drug Allergy 10-13-19 12 GI intolerance, Nausea Only, Nausea, Vomiting [facility] (20 sources) Mixed vespid venom Propensity to adverse reactions 11-26-19 23 GI intolerance [facility] (20 sources) moxifloxacin; Translations: [MOXIFLOXACIN] Drug Allergy 05-18-20 16 Hives, Nausea Only, Nausea, Vomiting [facility] Work Phone: (20 sources) Nitrofurantoin Drug Allergy 11-26-19 23 Hives [facility] (20 sources) Sulfamethoxazole / Trimethoprim; Translations: [SULFAMETHOXAZOLE-T RIMETHOPRIM] Drug Allergy 04-22-20 11 Hives, Rash [facility] (20 sources) traMADol; Translations: [TRAMADOL] Drug Allergy 05-18-20 16 Hives, Nausea Only, Nausea, Vomiting [facility] (20 sources) Cephalosporins (Antibiotic); Translations: [CEPHALOSPORINS] Drug Intolerance 04-19-20 12 Rash [facility] (20 sources) Honey bee venom Allergy to substance 10-13-19 12 Anaphylaxis [facility] (20 sources) Sulfamethoxazole Allergy to substance 02-11-20 20 Hives [facility] (20 sources) Trimethoprim Drug Allergy 02-11-20 20 [facility] (20 sources) Moxifloxacin Hcl In Nacl Drug Intolerance 04-22-20 11 [facility] (11 sources) Cephalosporins (Antibiotic) Propensity to adverse reactions to drug 05-18-20 16 Rash [facility] (13 sources) Bee Venom Protein (Honey Bee); Translations: [BEE VENOM PROTEIN (HONEY BEE)] Propensity to adverse reactions to drug 10-13-19 12 Anaphylaxis [facility] Medications Current Medications Medication Drug Class(es) Dates Sig (Normalized) Sig (Original) acetaminophen 500 mg oral tablet (12 sources) take 2 tablets by mouth every six hours as needed for pain acetaminophen (TYLENOL) 500 mg tablet Take 2 tablets (1,000 mg total) by mouth every 6 (six) hours as needed for pain. Active [id number] 200 actuat albuterol 0.09 mg/actuat metered dose inhaler (20 sources) beta2-Adrenergic Agonist Start: 10-04-2023 take 1 puff(s) by inhalation every four hours as needed albuterol (PROVENTIL HFA;VENTOLIN HFA) 90 mcg/actuation inhaler Inhale 1 puff every 4 (four) hours as needed. 10/04/2023 Active Start: 10-04-2023 take 1 puff(s) by in halation every four hours for wheezing albuterol HFA 90 mcg/act inhaler Indications: URTI (acute upper respiratory infection) , Wheezing-associated respiratory infection (WARI) , Non-recurrent acute suppurative otitis media of both ears without spontaneous rupture of tympanic membranes Inhale 1 puff every 4 (four) hours if needed for shortness of breath or wheezing 18 g 10/04/2023 Active Start: 04-13-2022 take 1 puff(s) by in halation every four hours albuterol HFA 90 mcg/act inhaler Inhale 1 puff every 4 (four) hours if needed. 0 04/13/2022 Active alendronic acid 35 mg oral tablet (20 sources) Bisphosphonate Start: 02-19-2024 End: 07-25-2024 alendronate (Fosamax) 35 MG tablet Indications: Osteopenia, unspecified location Take 1 tablet (35 mg) by mouth every 7 (seven) days 12 tablet 1 07/25/2024 Active Start: 09-19-2023 End: 02-19-2024 take 1 [...] Active ascorbic acid 1000 mg oral tablet (10 sources) Vitamin C take 1 tablet by mouth in the morning ascorbic acid, vitamin C, (VITAMIN C) 1000 mg tablet Take 1 tablet (1,000 mg total) by mouth in the morning. Active atorvastatin 20 mg oral tablet (20 sources) HMG-CoA Reductase Inhibitor Start: 05-12-20 End: 06-18-19 take 1 tablet by mouth once daily atorvastatin (LIPITOR) 20 mg tablet Take 1 tablet (20 mg total) by mouth nightly. 2016 Active azithromycin 250 mg oral tablet (4 sources) Macrolide Antimicrobial Start: 08-22-19 25 azithromycin (Zithromax) 250 MG tablet Indications: Subacute sinusitis, unspecified location 2 pills day #1, 1 pill day #2-#5 6 tablet 08/21/2024 Active Start: 05-16-2024 End: 05-19-2024 take 1 tablet [...] tablet (20 sources) Aminoketone Start: 07-17-2023 End: 11-20-2024 take 1 tablet by mouth every twenty-four hours in the morning buPROPion XL (Wellbutrin XL) 150 MG 24 hr tablet Indications: Tobacco abuse Take 1 tablet (150 mg) by mouth in the morning. 90 tablet 1 08/22/2024 11/20/2024 Active calcium carbonate 1250 mg oral tablet (20 sources) take 2.5 tablets by mouth in the morning calcium carbonate (OS-JULIO CÉSAR) 500 mg elemental (1,250 mg) tablet Take 2.5 tablets (1,250 mg total) by mouth in the morning. Active take 1 tablet by mouth in the mo rning calcium carbonate (Os-Julio César) 1250 (500 Ca) MG tablet Take 1,250 mg by mouth in the morning. Active cholecalciferol [...] completed) diclofenac potassium 50 mg oral tablet (10 sources) Nonsteroidal Anti-inflammatory Drug Start: 02-29-2024 End: 07-25-2024 take 1 tablet by mouth in the morning, then take 1 tablet by mouth at bedtime diclofenac (CATAFLAM) 50 mg tablet Take 1 tablet (50 mg total) by mouth in the morning and 1 tablet (50 mg total) before bedtime. 180 tablet 07/25/2024 Active [id number] 0.3 ml EPINEPHrine 1 mg/ml auto-injector (20 sources) alpha-Adrenergic Agonist, beta-Adrenergic Agonist, Catecholamine Start: 02-19-2016 EPIPEN 2-ELLIOT 0.3 mg/0.3 mL auto-injector 02/19/2016 Active EPINEPHrine (Epi Pen 2-Elliot) 0.3 MG/0.3ML injection syringe Inject as directed 1 (one) time. Active ergocalciferol 1.25 mg oral capsule (12 sources) Provitamin D2 Compound Start: 08-23-2021 take 1 capsule by mouth every week ergocalciferol (DRISDOL) 1,250 mcg (50,000 unit) capsule Indications: Vitamin D deficiency Take 1 capsule (50,000 Units total) by mouth once a week. For 6 weeks 6 capsule 08/23/2021 Active fexofenadine hydrochloride 180 mg oral tablet (14 sources) Histamine-1 Receptor Antagonist Start: 08-24-2022 End: [...] 02/22/2022 Active hydroCHLOROthiazide 12.5 mg oral tablet (20 sources) Thiazide Diuretic Start: 03-06-2024 End: 03-06-2025 take 1 tablet by mouth once daily hydroCHLOROthiazide (HYDRODiuril) 12.5 MG tablet Indications: Primary hypertension (CMS/HCC) Take 1 tablet (12.5 mg) by mouth Daily 90 tablet 08/01/2024 10/30/2024 Active lidocaine 0.05 mg/mg medicated patch (3 [...] Active magnesium oxide 400 mg oral tablet (10 sources) take 1 tablet by mouth in the morning magnesium oxide (MAGOX) 400 mg tablet Take 1 tablet (400 mg total) by mouth in the morning. Active melatonin 5 mg oral tablet (20 sources) take 2 tablets by mouth once daily melatonin (CIRCADIN) 5 mg tablet Take 2 tablets (10 mg total) by mouth nightly. Active meloxicam 15 mg oral tablet (20 [...] 04/16/2024 Active methocarbamol 500 mg oral tablet (4 sources) Muscle Relaxant Start: 07-08-2024 End: 07-09-2024 [...] Active phentermine hydrochloride 37.5 mg oral tablet (14 sources) Sympathomimetic Amine Anorectic Start: 01-24-2024 End: [...] Active traMADol hydrochloride 50 mg oral tablet (3 sources) Opioid Agonist Start: 07-08-2024 take 1 tablet by mouth every eight hours as needed traMADoL (ULTRAM) 50 mg tablet Take 1 tablet (50 mg total) by mouth every 8 (eight) hours as needed. 07/08/2024 Active traZODone hydrochloride 50 mg oral tablet (20 sources) Serotonin Reuptake Inhibitor Start: 09-28-2023 End: 07-25-2024 take 1 tablet by mouth once daily traZODone (Desyrel) 50 MG tablet Indications: Major depressive disorder with single episode, in full remission (CMS/HCC) Take 1 tablet (50 mg) by mouth Daily 90 tablet 07/25/2024 Active Completed/Discontinued Medications Medication Drug Class(es) Dates Sig (Normalized) Sig (Original) aspirin 81 mg delayed release oral tablet (2 sources) Platelet Aggregation Inhibitor, Nonsteroidal Anti-inflammatory Drug Start: 08-06-2021 End: 10-03-2023 aspirin 81 mg Indications: Primary osteoarthritis of right knee Take 1 tablet (81 mg total) by mouth 2 (two) times a day. To begin taking day one following your joint replacement 60 tablet 08/06/2021 10/03/2023 Discontinued (Ineffective) baclofen 10 mg oral tablet (6 sources) gamma-Aminobutyric Acid-ergic Agonist Start: 01-30-2024 End: 07-09-2024 take 0.5 tablet by mouth three times daily baclofen (LIORESAL) 10 mg tablet Indications: Disorder of sacrum Take 0.5 tablets (5 mg total) by mouth 3 (three) times a day. 90 tablet 01/30/2024 07/09/2024 Discontinued 24 hr nicotine 0.875 mg/hr transdermal system (2 sources) Cholinergic Nicotinic Agonist Start: 03-15-2023 End: 10-03-2023 nicotine (NICODERM CQ) 21 mg/24 hr 03/15/2023 10/03/2023 Discontinued (Ineffective) Start: 03-15-2023 apply 1 dose transde rmal route every twenty-four hours nicotine (NICODERM CQ) 21 mg/24 hr APPLY 1 PATCH TOPICALLY EVERY 24 HOURS 0 03/15/2023 Active Problems Active Problems Problem Classification Problem Date Documented Da te Episodic/Chronic Disorders of lipid metabolism (20 sources) Hyperlipidemia, unspecified; Translations: [Hyperlipidemia] Onset: 03-19-2018 Resolved: 08-21-2024 Chronic Essential hypertension (20 sources) Essential hypertension; Translations: [Essential (primary) hypertension] Onset: 07-17-2023 07-17-2023 Chronic Miscellaneous mental health disorders (1 source) Primary insomnia; Translations: [Primary insomnia] Onset: 08-21-2024 08-21-2024 Chronic Mood disorders (20 sources) Single episode [...] 35.0-35.9, adult] Onset: 01-24-2024 01-24-2024 Chronic Other nutritional; endocrine; and metabolic disorders (1 source) Obesity caused by energy imbalance; Translations: [Class 1 obesity due to excess calories without serious comorbidity in adult] Onset: 08-21-2024 08-21-2024 Chronic Other upper respiratory disease (20 sources) Seasonal allergy; Translations: [Other seasonal allergic rhinitis] 01-24-2024 Chronic Other upper respiratory infections (1 source) Sinusitis; Translations: [Chronic sinusitis, unspecified] Onset: 08-21-2024 08-21-2024 Chronic Residual codes; unclassified (5 sources) Obstructive sleep apnea syndrome; Translations: [Obstructive sleep apnea (adult) (pediatric)] Onset: 08-21-2024 07-17-2023 Chronic Residual codes; unclassified (20 sources) Sleep apnea; Translations: [Sleep apnea, unspecified] Onset: 03-19-2018 Resolved: 08-21-2024 07-17-2023 Chronic Residual codes; unclassified (20 sources) Tobacco user; Translations: [Tobacco use] Onset: 07-17-2023 Resolved: 08-21-2024 07-17-2023 Episodic Spondylosis; intervertebral disc disorders; other back problems (4 sources) Other intervertebral disc degeneration, lumbar region; Translations: [Lumbosacral spondylosis without myelopathy] Onset: 05-29-2022 07-09-2024 Chronic Spondylosis; intervertebral disc disorders; other back problems (20 sources) Spinal stenosis of lumbar region; Translations: [Spinal stenosis, lumbar region with neurogenic claudication] Onset: 09-08-2022 07-17-2023 Episodic Substance-related disorders (1 source) Tobacco dependence caused by cigarettes; Translations: [Nicotine dependence, cigarettes, uncomplicated] Onset: 08-21-2024 08-21-2024 Chronic Thyroid disorders (1 source) Congenital hypothyroidism with diffuse goiter; Translations: [CONGEN HYPOTHYROIDISM W/DIF GOITER] Onset: 11-18-2021 Chronic Unclassified (3 sources) LOW BACK PAIN, UNSPECIFIED; Translations: [LOW BACK PAIN, UNSPECIFIED] Onset: 05-29-2022 Past or Other Problems Problem Classification Problem Date Documented Da te Episodic/Chronic Abdominal pain (12 sources) Right flank pain; Translations: [Unspecified abdominal pain] Onset: 03-19-2018 03-19-2018 Episodic Diabetes mellitus without complication (1 source) Other abnormal glucose; Translations: [OTHER ABNORMAL GLUCOSE] Onset: 11-18-2021 Episodic Genitourinary symptoms and ill-defined conditions (12 sources) Blood in urine; Translations: [Hematuria, unspecified] Onset: 03-19-2018 03-19-2018 Episodic Other lower respiratory disease (20 sources) Respiratory tract infection; Translations: [Other specified respiratory disorders] Onset: 10-04-2023 10-04-2023 Episodic Other upper respiratory infections (20 sources) Acute upper respiratory infection; Translations: [Acute upper respiratory infection, unspecified] Onset: 07-17-2023 Resolved: 08-21-2024 07-17-2023 Episodic Otitis media and related conditions (20 sources) Acute suppurative otitis media without spontaneous rupture of ear drum; Translations: [Acute suppurative otitis media without spontaneous rupture of ear drum, bilateral] Onset: 10-04-2023 Resolved: 08-21-2024 10-04-2023 Episodic Residual codes; unclassified (20 sources) Hypersomnia with sleep apnea; Translations: [Hypersomnia, unspecified] Onset: 07-17-2023 Resolved: 08-21-2024 07-17-2023 Chronic Unclassified (1 source) LOW BACK PAIN, UNSPECIFIED; [...] Mackenzie MD on 07/10/2024 10:39 AM Normal [facility] XR LSPINE MIN 4 VIEWSon 05-12 XR [...] CHETNA BYERS Date: 2022-05-25 23:28 Normal [facility] CBC AUTO DIFFon 11-12-2021 BASO # 0.0 103/ul Normal 0.0-0.1 [facility] Comment on above: Performed By: #### C BC #### [facility] [address] [address] [address] Mary Solano Basophils/100 WBC (Bld) 0.6 % Normal 0.2-2.0 [facility] Comment on above: Performed By: #### C BC #### [facility] [address] [place] [address] Dr. Mary Solano EO # 0.1 103/ul Normal 0.0-0.7 [facility] Comment on above: Performed By: #### C BC #### [facility] [address] [place] [address] Dr. Mary Solano Eosinophils/100 WBC (Bld) 1.9 % Normal 0.9-7.0 [facility] Comment on above: Performed By: #### C BC #### [facility] [address] [place] [address] Dr. Mary Solano Erythrocyte distribution width (RBC) [Ratio] 14.0 % Normal 11.0-15.0 [facility] Comment on above: Performed By: #### C BC #### [facility] [address] [place] [address] Dr. Mary Solano Hematocrit (Bld) [Volume fraction] 44.4 % Normal 36.0-48.0 [facility] Comment on above: Performed By: #### C BC #### [facility] [address] [place] [address] Dr. Mary Solano Hemoglobin (Bld) [Mass/Vol] 14.3 g/dL Normal 12.0-16.0 [facility] Comment on above: Performed By: #### C BC #### [facility] [address] [place] [address] Dr. Mary Solano IG # 0.02 10e3/ul Normal 0.00-0.03 [facility] Comment on above: Performed By: #### C BC #### [facility] [address] [place] [address] Dr. Mary Solano IG % 0.3 % Normal 0.0-0.5 [facility] Comment on above: Performed By: #### C BC #### [facility] [address] [place] [address] Dr. Mary Solano LYMPH # 2.1 103/ul Normal 1.2-3.8 [facility] Comment on above: Performed By: #### C BC #### [facility] [address] [place] [address] Dr. Mary Solano Lymphocytes/100 WBC (Bld) 30.1 % Normal 20.5-60.0 [facility] Comment on above: Performed By: #### C BC #### [facility] [address] [place] [address] Dr. Mary Solano MANUAL DIFF REQ NO Normal [facility] Comment on above: Performed By: #### C BC #### [facility] [address] [place] [address] Dr. Mary Solano MCH (RBC) [Entitic mass] 29.3 pg Normal 26.7-34.0 [facility] Comment on above: Performed By: #### C BC #### [facility] [address] [place] [address] Dr. Mary Solano MCHC (RBC) [Mass/Vol] 32.2 g/dL Normal 29.9-35.2 [facility] Comment on above: Performed By: #### C BC #### [facility] [address] [place] [address] Dr. Mary Solano MCV (RBC) [Entitic vol] 91.0 fL Normal 81.0-99.0 [facility] Comment on above: Performed By: #### C BC #### [facility] [address] [place] [address] Dr. Mary Solano MONO # 0.6 103/ul Normal 0.3-0.8 [facility] Comment on above: Performed By: #### C BC #### [facility] [address] [place] [address] Dr. Mary Solano Monocytes/100 WBC (Bld) 8.9 % Normal 1.7-12.0 [facility] Comment on above: Performed By: #### C BC #### [facility] [address] [place] [address] Dr. Mary Solano NEUT # 4.0 103/ul Normal 1.4-6.5 [facility] Comment on above: Performed By: #### C BC #### [facility] [address] [place], [place] [id number] Dr. Mary Solano Neutrophils/100 WBC (Bld) 58.2 % Normal 43.0-75.0 [facility] Comment on above: Performed By: #### C BC #### [facility] [address] [place] [address] Dr. Mary Solano Platelet mean volume (Bld) [Entitic vol] 8.8 fL Critically low 9.5-13.5 [facility] Comment on above: Performed By: #### C BC #### [facility] [address] [place] [address] Dr. Mary Solano PLT 372 103/ul Normal 150-450 [facility] Comment on above: Performed By: #### C BC #### [facility] [address] [place] [address] Dr. Mary Solano RBC 4.88 106/ul Normal 4.20-5.40 [facility] Comment on above: Performed By: #### C BC #### [facility] [address] [place] [address] Dr. Mary Solano WBC 6.8 103/ul Normal 4.0-11.0 [facility] Comment on above: Performed By: #### C BC #### [facility] [address] [place] [address] Dr. Mary Solano GLYCOHEMOGLOBIN A1Con 2021 ADA RECOMMENDATION SEE BELOW Normal [facility] Comment on above: Result Comment: ADA RECOMMENDED LIMIT 4.0 - 6.0 ADA THERAPEUTIC TARGET < 7.0 ACTION SUGGESTED > 7.0 Performed By: #### A 1C #### [facility] [address] [place] [address] Dr. Mary Solano Glucose [Mass/Vol] 117 mg/dL Normal [facility] Comment on above: Performed By: #### A 1C #### [facility] [address] [place] [address] Dr. Mary Solano HbA1c (Bld) [Mass fraction] 5.7 % Normal 4.5-6.2 [facility] Comment on above: Performed By: #### A 1C #### [facility] [address] [address] [address] Mary Solano LIPID PROFILEon 11-12-2021 CHOL-HDL RATIO NORM SEE BELOW Normal [facility] Comment on above: Result Comment: 3.3 - 4.4 LOW RISK 4.4 - 7.1 AVERAGE RISK 7.1 - 11.0 MODERATE RISK >11.0 HIGH RISK Performed By: #### C MP, LIPID #### [facility] [address] [address] [address] Mary Solano Cholesterol [Mass/Vol] 197 mg/dL Normal <=200 [facility] Comment on above: Performed By: #### C MP, LIPID #### [facility] [address] [address] [address] Mary Solano Cholesterol in HDL [Mass/Vol] 49 mg/dL Normal 40-60 [facility] Comment on above: Performed By: #### C MP, LIPID #### [facility] [address] [address] [address] Mary Solano Cholesterol in LDL [Mass/Vol] 124.4 mg/dL Normal [facility] Comment on above: Performed By: #### C MP, LIPID #### [facility] [address] [address] [address] Mary Solano Cholesterol.total/Cho lesterol in HDL [Mass ratio] 4.0 {ratio} Normal [facility] Comment on above: Performed By: #### C MP, LIPID #### [facility] [address] [address] [address] Mary Solano HDL NORMAL > or = 60 mg/dl - LOW CARDIOVASCULAR RISK <40 mg/dl - HIGH CARDIOVASCULAR RISK Normal [facility] Comment on above: Performed By: #### C MP, LIPID #### [facility] [id number] Mary Solano LDL CALC NORMAL SEE BELOW Normal [facility] Comment on above: Result Comment: <100 mg/dl OPTIMAL 100 - 129 mg/dl NEAR OR ABOVE OPTIMAL 130 - 159 mg/dl BORDERLINE HIGH 160 - 189 mg/dl HIGH >190 mg/dl VERY HIGH Performed By: #### C MP, LIPID #### [facility] [address] [address] [address] Mary Solano Triglyceride [Mass/Vol] 118 mg/dL Normal <=150 [facility] Comment on above: Performed By: #### C MP, LIPID #### [facility] [address] [address] [address] Mary Solano VLDL CALC 23.6 mg/dL Normal [facility] Comment on above: Performed By: #### C MP, LIPID #### [facility] [address] [address] [address] Mary Solano PROF 14(COMP METB)on 022 Albumin [Mass/Vol] 3.8 g/dL Normal 3.4-5.0 [facility] Comment on above: Performed By: #### C MP, LIPID #### [facility] [address] [place] [address] Dr. Mary Solano Albumin/Globulin [Mass ratio] 1.1 {ratio} Normal [facility] Comment on above: Performed By: #### C MP, LIPID #### [facility] [address] [place] [address] Dr. Mary Solano ALP [Catalytic activity/Vol] 136 U/L Critically high 46-116 [facility] Comment on above: Performed By: #### C MP, LIPID #### [facility] [address] [place] [address] Dr. Mary Solano ALT [Catalytic activity/Vol] 20 U/L Normal 14-59 [facility] Comment on above: Performed By: #### C MP, LIPID #### [facility] [address] [place] [address] Dr. Mary Solano Anion gap [Moles/Vol] 12.1 mmol/L Normal [facility] Comment on above: Performed By: #### C MP, LIPID #### [facility] [address] [place] [address] Dr. Mary Solano AST [Catalytic activity/Vol] 14 U/L Critically low 15-37 [facility] Comment on above: Performed By: #### C MP, LIPID #### [facility] [address] [address] [address] Mary Solano Bilirubin [Mass/Vol] 0.3 mg/dL Normal 0.2-1.0 [facility] Comment on above: Performed By: #### C MP, LIPID #### [facility] [address] [place] [address] Dr. Mary Solano Calcium [Mass/Vol] 9.3 mg/dL Normal 8.5-10.1 [facility] Comment on above: Performed By: #### C MP, LIPID #### [facility] [address] [place] [address] Dr. Mary Solano Chloride [Moles/Vol] 102 mmol/L Normal 98-107 [facility] Comment on above: Performed By: #### C MP, LIPID #### [facility] [address] [place] [address] Dr. Mary Solano CO2 [Moles/Vol] 29.0 mmol/L Normal 21.0-32.0 [facility] Comment on above: Performed By: #### C MP, LIPID #### [facility] [address] [place] [address] Dr. Mary Solano Creatinine [Mass/Vol] 0.64 mg/dL Normal 0.55-1.02 [facility] Comment on above: Performed By: #### C MP, LIPID #### [facility] [address] [place] [address] Dr. Mary Solano EGFR-AF ERITREAN >60 Normal >=60 [facility] Comment on above: Performed By: #### C MP, LIPID #### [facility] [address] [place] [address] Dr. Mary Solano EGFR-NON AF ERITREAN >60 Normal >=60 [facility] Comment on above: Performed By: #### C MP, LIPID #### [facility] [address] [place] [address] Dr. Mary Solano Globulin (S) [Mass/Vol] 3.4 g/dL Normal [facility] Comment on above: Performed By: #### C MP, LIPID #### [facility] [address] [place] [address] Dr. Mary Solano Glucose [Mass/Vol] 94 mg/dL Normal 74-106 [facility] Comment on above: Performed By: #### C MP, LIPID #### [facility] [address] [address] [address] Mary Solano Potassium [Moles/Vol] 4.1 mmol/L Normal 3.5-5.1 [facility] Comment on above: Performed By: #### C MP, LIPID #### [facility] [address] [address] [address] Mary Solano Protein [Mass/Vol] 7.2 g/dL Normal 6.4-8.2 [facility] Comment on above: Performed By: #### C MP, LIPID #### [facility] [address] [address] [address] Mary Solano Sodium [Moles/Vol] 139 mmol/L Normal 136-145 [facility] Comment on above: Performed By: #### C MP, LIPID #### [facility] [address] [address] [address] Mary Solano Urea nitrogen [Mass/Vol] 14.0 mg/dL Normal 7.0-18.0 [facility] Comment on above: Performed By: #### C MP, LIPID #### [facility] [address] [place] [address] Dr. Mary Solano Urea nitrogen/Creatinine [Mass ratio] 21.9 mg/mg Normal [facility] Comment on above: Performed By: #### C MP, LIPID #### [facility] [address] [place] [address] Dr. Mary Solano Reminderson 06-07-2019 Reminders - From: Tati Mcdonald MA To: [place] - Clinical; Sent: 05/22/2019 09:03:06 EST Show up: 06/03/2019 07:00:00 EST Subject: Ambulatory Reminder Due Date/Time: 06/05/2019 07:00:00 EST Reminder/Recall FISH/Cytology done 05/22/19 due to gross hematuria done, results negative, in patients chart Normal [facility] Vital Signs Date Time Vital Sign Value Performing Clinician Facility 08-29-2024 10:43-0400 Diastolic blood pressure 70 mm[Hg] Yadiel Scott PA Work Phone: [facility] 08-29-2024 10:43-0400 Heart rate 70 /min Yadiel Nienberg PA Work Phone: [facility] 08-29-2024 10:43-0400 Respiratory rate 20 /min Yadiel Nienberg PA Work Phone: [facility] 08-29-2024 10:43-0400 Systolic blood pressure 106 mm[Hg] Yadiel Nienberg PA Work Phone: [facility] 07-09-2024 12:59-0500 Diastolic blood pressure 79 mm[Hg] Yadiel Nienberg PA Work Phone: [facility] 07-09-2024 12:59-0500 Heart rate 69 /min Yadiel Ennisenberg PA Work Phone: [facility] 07-09-2024 12:59-0500 Respiratory rate 18 /min Yadiel Nienberg PA Work Phone: [facility] 07-09-2024 12:59-0500 SaO2% (BldA) [Mass fraction] 97 % Yadiel Ennisenberg PA Work Phone: [facility] 07-09-2024 12:59-0500 Systolic blood pressure 117 mm[Hg] Yadiel Scott PA Work Phone: [facility] 05-23-2024 10:11-0500 Body height 162.6 cm Yadiel Nienberg PA Work Phone: [facility] 05-23-2024 10:11-0500 Body mass index (BMI) [Ratio] 34.33 kg/m2 Yadiel nEnisenberg PA Work Phone: [facility] 05-23-2024 10:11-0500 Body weight 90.72 kg Yadiel Ennisenberg PA Work Phone: [facility] 05-23-2024 10:11-0500 Diastolic blood pressure 70 mm[Hg] Yadiel Scott PA Work Phone: [facility] 05-23-2024 10:11-0500 Heart rate 64 /min Yadiel Scott PA Work Phone: [facility] 05-23-2024 10:11-0500 Respiratory rate 18 /min Yadiel Scott PA Work Phone: [facility] 05-23-2024 10:11-0500 SaO2% (BldA) [Mass fraction] 98 % Yadiel Scott PA Work Phone: [facility] 05-23-2024 10:11-0500 Systolic blood pressure 134 mm[Hg] Yadiel Scott PA Work Phone: [facility] 05-16-2024 09:15-0500 Body mass index (BMI) [Ratio] 33.3 kg/m2 Sindhu Tong CASE TECHNICIAN Work Phone: [facility] 05-16-2024 09:15-0500 Body temperature 97.39 [degF] Sindhu Tong CASE TECHNICIAN Work Phone: [facility] 05-16-2024 09:15-0500 Body weight 88 kg Sindhu Tong CASE TECHNICIAN Work Phone: [facility] 05-16-2024 09:15-0500 Diastolic blood pressure 76 mm[Hg] Sindhu Tong CASE TECHNICIAN Work Phone: [facility] 05-16-2024 09:15-0500 Heart rate 60 /min Sindhu Tong CASE TECHNICIAN Work Phone: [facility] 05-16-2024 09:15-0500 SaO2% (BldA) [Mass fraction] 100 % Sindhu Tong CASE TECHNICIAN Work Phone: [facility] 05-16-2024 09:15-0500 Systolic blood pressure 132 mm[Hg] Sindhu Giordanozpatrick CASE TECHNICIAN Work Phone: [facility] 04-09-2024 09:55-0400 Body height 162.6 cm Yadiel Scott PA Work Phone: [facility] 04-09-2024 09:55-0400 Body mass index (BMI) [Ratio] 34.5 kg/m2 Yadiel Scott PA Work Phone: [facility] 04-09-2024 09:55-0400 Body weight 91.17 kg Yadiel Scott PA Work Phone: [facility] 04-09-2024 09:55-0400 Diastolic blood pressure 73 mm[Hg] Yadiel Scott PA Work Phone: [facility] 04-09-2024 09:55-0400 Heart rate 70 /min Yadiel Scott PA Work Phone: [facility] 04-09-2024 09:55-0400 Respiratory rate 18 /min Yadiel Scott PA Work Phone: [facility] [employer] 04-09-2024 09:55-0400 SaO2% (BldA) [Mass fraction] 98 % Yadiel Scott PA Work Phone: [facility] 04-09-2024 09:55-0400 Systolic blood pressure 130 mm[Hg] Yadiel Scott PA Work Phone: [facility] 02-29-2024 08:39-0400 Body mass index (BMI) [Ratio] 34.5 kg/m2 [facility]adiel Scott PA [facility] 02-29-2024 08:39-0400 Body weight 91.17 kg Yadiel Scott PA Work Phone: [facility] 02-29-2024 08:39-0400 Diastolic blood pressure 81 mm[Hg] Yadiel Scott PA Work Phone: [facility] 02-29-2024 08:39-0400 Heart rate 67 /min Yadiel Scott PA Work Phone: [facility] 02-29-2024 08:39-0400 Respiratory rate 16 /min Yadiel Jose PA Work Phone: [facility] 02-29-2024 08:39-0400 SaO2% (BldA) [Mass fraction] 98 % Yadielrose Scott PA Work Phone: [facility] 02-29-2024 08:39-0400 Systolic blood pressure 137 mm[Hg] Yadiel Scott PA Work Phone: [facility] 02-22-2024 10:35-0400 Body height 162.6 cm Sindhu Tong CASE TECHNICIAN Work Phone: [facility] 02-22-2024 10:35-0400 Body mass index (BMI) [Ratio] 34.33 kg/m2 Sindhu Tong CASE TECHNICIAN Work Phone: [facility] 02-22-2024 10:35-0400 Body temperature 97.39 [degF] Sindhu Tong CASE TECHNICIAN Work Phone: [facility] 02-22-2024 10:35-0400 Body weight 90.72 kg Sindhu Tong CASE TECHNICIAN Work Phone: [facility] 02-22-2024 10:35-0400 Diastolic blood pressure 70 mm[Hg] Sindhu Tong CASE TECHNICIAN Work Phone: [facility] 02-22-2024 10:35-0400 Heart rate 74 /min Sindhu Tong CASE TECHNICIAN Work Phone: [facility] Comment on above: 94% O2 02-22-2024 10:35-0400 Systolic blood pressure 118 mm[Hg] Sindhu Tong CASE TECHNICIAN Work Phone: [facility] 01-30-2024 13:41-0400 Body height 162.6 cm Zeina Scott METALLOGRAPHIC TECHNICIAN-GREETING CARD WRITER Work Phone: [facility] 01-30-2024 13:41-0400 Body mass index (BMI) [Ratio] 35.02 kg/m2 Zeina Scott METALLOGRAPHIC TECHNICIAN-GREETING CARD WRITER Work Phone: [facility] 01-30-2024 13:41-0400 Body weight 92.53 kg Zeina Scott METALLOGRAPHIC TECHNICIAN-GREETING CARD WRITER Work Phone: [facility] 01-30-2024 13:41-0400 Diastolic blood pressure 79 mm[Hg] Zeina Scott METALLOGRAPHIC TECHNICIAN-GREETING CARD WRITER Work Phone: [facility] 01-30-2024 13:41-0400 Heart rate 71 /min Zeina Scott METALLOGRAPHIC TECHNICIAN-GREETING CARD WRITER Work Phone: [facility] 01-30-2024 13:41-0400 Respiratory rate 18 /min Zeina Scott METALLOGRAPHIC TECHNICIAN-GREETING CARD WRITER Work Phone: [facility] 01-30-2024 13:41-0400 SaO2% (BldA) [Mass fraction] 96 % Zeina Scott METALLOGRAPHIC TECHNICIAN-GREETING CARD WRITER Work Phone: [facility] 01-30-2024 13:41-0400 Systolic blood pressure 143 mm[Hg] Zeina Scott METALLOGRAPHIC TECHNICIAN-GREETING CARD WRITER Work Phone: [facility] 12-28-2023 14:46-0400 Body height 162.6 cm Yadiel MUNGUIA Work Phone: [facility] 12-28-2023 14:46-0400 Body mass index (BMI) [Ratio] 35.02 kg/m2 Yadiel Scott PA Work Phone: [facility] 12-28-2023 14:46-0400 Body weight 92.53 kg Yadiel Scott PA Work Phone: [facility] 12-28-2023 14:46-0400 Diastolic blood pressure 72 mm[Hg] Yadiel Scott PA Work Phone: [facility] 12-28-2023 14:46-0400 Heart rate 68 /min Yadiel Nienberg PA Work Phone[facility] 12-28-2023 14:46-0400 Respiratory rate 16 /min Yadiel Nienberg PA Work Phone: [facility] 12-28-2023 14:46-0400 SaO2% (BldA) [Mass fraction] 96 % Yadiel Nienberg PA Work Phone: [facility] 12-28-2023 14:46-0400 Systolic blood pressure 128 mm[Hg] Yadiel Nienberg PA Work Phone: [facility] 10-03-2023 09:52-0400 Diastolic blood pressure 69 mm[Hg] Yadiel Nienberg PA Work Phone: [facility] 10-03-2023 09:52-0400 Heart rate 67 /min Yadiel Nienberg PA Work Phone: [facility] 10-03-2023 09:52-0400 Respiratory rate 20 /min Yadiel Nienberg PA Work Phone: [facility] [employer] 10-03-2023 09:52-0400 Systolic blood pressure 129 mm[Hg] Yadiel Nienberg PA Work Phone: [facility] 08-24-2023 09:25-0400 Body height 162.6 cm Yadiel Nienberg PA Work Phone: [facility] 08-24-2023 09:25-0400 Body mass index (BMI) [Ratio] 33.13 kg/m2 Yadiel Nienberg PA Work Phone: [facility] 08-24-2023 09:25-0400 Body weight 87.54 kg Yadiel Nienberg PA Work Phone: [facility] 08-24-2023 09:25-0400 Diastolic blood pressure 75 mm[Hg] Yadiel Nienberg PA Work Phone: [facility] [employer] 08-24-2023 09:25-0400 Heart rate 58 /min Yadiel Nienberg PA Work Phone: [facility] 08-24-2023 09:25-0400 Respiratory rate 14 /min Yadiel Jose PA Work Phone: [facility] 08-24-2023 09:25-0400 SaO2% (BldA) [Mass fraction] 98 % Yadiel MUNGUIA Work Phone: [facility] 08-24-2023 09:25-0400 Systolic blood pressure 137 mm[Hg] Yadiel MUNGUIA Work Phone: [facility] 07-17-2023 09:00-0500 Body height 162.6 cm Shaikh Jovani ASKEW Work Phone: [facility] 07-17-2023 09:00-0500 Body mass index (BMI) [Ratio] 33.23 kg/m2 Shaikh Jovani ASKEW Work Phone: [facility] 07-17-2023 09:00-0500 Body temperature 98.1 [degF] Shaikh Jovani ASKEW Work Phone: [facility] 07-17-2023 09:00-0500 Body weight 87.82 kg Shaikh Jovani ASKEW Work Phone: [facility] 07-17-2023 09:00-0500 Diastolic blood pressure 78 mm[Hg] Shaikh Jovani ASKEW Work Phone: [facility] 07-17-2023 09:00-0500 Heart rate 66 /min Shaikh Jovani ASKEW Work Phone: [facility] 07-17-2023 09:00-0500 Respiratory rate 17 /min Shaikh Jovani ASKEW Work Phone: [facility] 07-17-2023 09:00-0500 SaO2% (BldA) [Mass fraction] 96 % Shaikh Jovani ASKEW Work Phone: [facility] 07-17-2023 09:00-0500 Systolic blood pressure 130 mm[Hg] Shaikh Jovani ASKEW Work Phone: [facility] Encounters Encounter Date Encounter Type Care Provider Facility Start: 08-29-2024 End: 08-29-2024 Office outpatient visit 25 minutes Yadiel Scott PA Work Phone: [facility] Comment on above: Disorder of sacrum ( Primary Dx) Start: 08-29-2024 End: 08-29-2024 ambulatory YADIEL SCOTT [facility] Start: 08-22-2024 End: 08-22-2024 Refill Estefany Radha CASE TECHNICIAN Work Phone: [facility] Comment on above: Tobacco abuse Start: 08-21-2024 End: 08-21-2024 ambulatory ESTEFANY RADHA Not Available Start: 08-01-2024 End: 08-01-2024 Refill Diana Becker MA [facility] Comment on above: Primary hypertension (CMS/HCC) Start: 07-25-2024 End: 07-25-2024 Refill Sindhu Tong CASE TECHNICIAN Work Phone: [facility] Comment on above: Osteopenia, unspecif ied location; Major depressive disorder with single episode, in full remission (CMS/HCC) Start: 07-09-2024 End: 07-09-2024 Office outpatient visit 15 minutes Yadiel Scott PA Work Phone: [facility] Comment on above: Primary osteoarthrit is of left hip (Primary Dx); Lumbosacral spondylosis without myelopathy Start: 07-09-2024 End: 07-09-2024 ambulatory YADIEL SCOTT [facility] Start: 06-21-2024 End: 06-21-2024 ambulatory ROLY Ilir DICKENS [facility] Start: 06-18-2024 End: 06-18-2024 Refill Sindhu Tong CASE TECHNICIAN Work Phone: [facility] Comment on above: Major depressive dis order with single episode, in full remission ([facility]/HCC) Start: 05-23-2024 End: 05-23-2024 Refill Sindhu Giordanozpatrick CASE TECHNICIAN Work Phone: [facility] Comment on above: Tobacco abuse Tobacco abuse; Major depressive disorder with single episode, in full remission ([facility]/HCC) Start: 05-23-2024 End: 05-23-2024 Office outpatient visit 25 minutes Yadiel Scott PA Work Phone: [facility] Comment on above: Primary osteoarthrit is of left hip (Primary Dx) Start: 05-23-2024 End: 05-23-[address] [facility] Harvey SCOTT [facility] Start: 05-16-2024 End: 05-16-2024 Bamboo flowsheet Sindhu Tong CASE TECHNICIAN Work Phone: [facility] Start: 05-16-2024 End: 05-16-2024 Bamboo flowsheet Sindhu Tong CASE TECHNICIAN Work Phone: [facility] Start: 05-16-2024 End: 05-16-2024 Office outpatient visit 10 minutes Sindhu Martinezpatrick CASE TECHNICIAN Work Phone: [facility] Comment on above: Upper respiratory tr act infection, unspecified type (Primary Dx); Major depressive disorder with single episode, in full remission ([facility]/HCC); URTI (acute upper respiratory infection) Start: 05-16-2024 End: 05-16-2024 ambulatory SINDHU TONG Not Available Start: 05-02-2024 End: 05-02-2024 Refill Sindhu Tong CASE TECHNICIAN Work Phone: [facility] Comment on above: Primary hypertension ([facility]/HCC) Start: 04-26-2024 End: 04-26-2024 Refill Linda Calderon RN [facility] Start: 04-16-2024 End: 04-16-2024 Refill Sindhu Tong CASE TECHNICIAN Work Phone: [facility] Comment on above: Primary osteoarthrit is of left hip; Primary osteoarthritis of right knee; Spinal stenosis of lumbar region with neurogenic claudication Start: 04-09-2024 End: 04-09-2024 Office outpatient visit 15 minutes Yadiel MUNGUIA Work Phone: [facility] Comment on above: Disorder of sacrum ( Primary Dx) Start: 04-09-2024 End: 04-09-2024 Refill Diana Becker MA [facility] Comment on above: Major depressive dis order with single episode, in full remission (CMS/HCC) Start: 04-04-2024 End: 04-04-2024 Refill Sindhu Tong CASE TECHNICIAN Work Phone: [facility] Comment on above: Primary hypertension (CMS/HCC) Start: 03-22-2024 End: 03-22-2024 ambulatory ROLY [facility] Start: 03-15-2024 End: 03-18-2024 Refill Sindhu Tong CASE TECHNICIAN Work Phone: [facility] Comment on above: Primary osteoarthrit is of left hip; Primary osteoarthritis of right knee; Spinal stenosis of lumbar region with neurogenic claudication Start: 03-14-2024 End: 03-14-2024 Orders Only Sindhu Tong CASE TECHNICIAN Work Phone: [facility] Comment on above: Obstructive sleep ap emily syndrome (Primary Dx) Start: 03-06-2024 End: 03-06-2024 Orders Only Sindhu Tong CASE TECHNICIAN Work Phone: [facility] Comment on above: Primary hypertension (CMS/HCC) (Primary Dx) Start: 02-29-2024 End: 02-29-2024 Office outpatient visit 25 minutes Yadiel MUNGUIA Work Phone: [facility] Comment on above: Spinal stenosis of l umbar region with neurogenic claudication (Primary Dx) Start: 02-29-2024 End: 02-29-2024 ambulatory YADIEL Gabriel JOSE [facility] Start: 02-22-2024 End: 02-22-2024 Office outpatient visit 10 minutes Sindhu Almarazk CASE TECHNICIAN Work Phone: [facility] Comment on above: Hypersomnia with sle ep apnea (Primary Dx); Obstructive sleep apnea syndrome Start: 02-22-2024 End: 02-22-2024 ambulatory SINDHU TONG Not Available Start: 02-20-2024 End: 02-20-2024 Refill Sindhu Tong CASE TECHNICIAN Work Phone: [facility] Comment on above: Tobacco abuse Start: 02-19-2024 End: 02-19-2024 Refill Sindhu Tong CASE TECHNICIAN Work Phone: [facility] Comment on above: Osteopenia, unspecif ied location Start: 02-09-2024 End: 02-09-2024 ambulatory [facility] Start: 01-30-2024 End: 01-30-2024 Telephone encounter Zeina Scott METALLOGRAPHIC TECHNICIAN-GREETING CARD WRITER Work Phone: [facility] Start: 01-30-2024 End: 01-30-2024 Office outpatient visit 15 minutes Zeina Scott METALLOGRAPHIC TECHNICIAN-GREETING CARD WRITER Work Phone: [facility] Comment on above: Disorder of sacrum ( Primary Dx) Start: 01-30-2024 End: 01-30-2024 ambulatory [facility] Start: 01-24-2024 End: 01-24-2024 ambulatory SINDHU TONG Not Available Start: 01-12-2024 End: 01-12-2024 ambulatory [facility] Start: 12-28-2023 End: 12-28-2023 Office outpatient visit 15 minutes Yadiel Scott PA Work Phone: [facility] Comment on above: Disorder of sacrum ( Primary Dx) Start: 12-28-2023 End: 12-28-[address] [facility] Harvey [facility] Start: 11-30-2023 End: 11-30-2023 ambulatory ALEXIS RUBALCAVA Not Available Start: 10-04-2023 End: 10-04-2023 ambulatory SHAIKH JOVANI Not Available Start: 10-03-2023 End: 10-03-2023 Office outpatient visit 15 minutes Yadiel MUNGUIA Work Phone: [facility] Comment on above: Lumbosacral spondylo sis without myelopathy (Primary Dx) Start: 10-03-2023 End: 10-03-2023 ambulatory [facility] Start: 09-16-2023 End: 09-16-2023 ambulatory [facility] [facility] Start: 09-15-2023 End: 09-15-2023 ambulatory ROLY DICKENS [facility] Start: 08-24-2023 End: 08-24-2023 Office outpatient visit 15 minutes Yadiel MUNGUIA Work Phone: [facility] Comment on above: Disorder of sacrum ( Primary Dx) Start: 07-17-2023 Isaiah Hahn MD Work Phone: [...] in full remission (CMS/HCC); Tobacco abuse Start: 05-25-2022 End: 05-26-2022 ambulatory SHAIKH Truman HAHN Facility:H1 Start: 11-12-2021 End: 11-13-2021 ambulatory SHAIKH Truman HAHN Facility: Procedures Date Procedure Procedure Detail Performing Clinician Start: 01-29-2024 Mammography Sindhu sandoval CASE TECHNICIAN Work Phone: Start: 11-30-2023 Microscopic observat ion [Identifier] in Cervix by Cyto stain Sindhu Tong CASE TECHNICIAN Work Phone: Start: 02-12-2023 Mammography Shaikh Jim franco MD Work Phone: Start: 11-18-2021 Mammography Shaikh Jim franco MD Work Phone: Plan of Treatment Date Care Activity Detail Author Start: 06-07-2034 DTaP,Tdap and Td Vaccines (3 - Td or Tdap) DTaP,Tdap and Td Vaccines (3 - Td or Tdap) [facility] Start: 12-07-2027 Screening for malign ant neoplasm of cervix [facility] Start: 11-29-2026 Screening for malign ant neoplasm of cervix Pap Smear [facility] Start: 08-29-2025 Tobacco Screening Tobacco Screening [facility] Start: 07-09-2025 Tobacco Screening Tobacco Screening [facility] Start: 05-23-2025 Adult BMI Screening Adult BMI Screen [facility] Start: 05-23-2025 Tobacco Screening Tobacco Screening [facility] Start: 04-26-2025 Tobacco Screening Tobacco Screening [facility] Start: 04-09-2025 Adult BMI Screening Adult BMI Screen [facility] Start: 04-09-2025 Tobacco Screening Tobacco Screening [facility] Start: 03-09-2025 Screening for malign ant neoplasm of colon [facility] Start: 02-28-2025 Adult BMI Screening Adult BMI Screen [facility] Start: 02-28-2025 Tobacco Screening Tobacco Screening [facility] Start: 01-28-2025 Screening for malign ant neoplasm of breast Mammogram [facility] Start: 12-27-2024 Adult BMI Screening Adult BMI Screen [facility] Start: 12-27-2024 Tobacco Screening Tobacco Screening [facility] Start: 12-03-2024 End: 12-03-2024 Patient encounter procedure 12/03/2024 10:00 AM EDT Office Visit [facility] [address] [place] [address] Alexis Rubalcava, [address] [facility] [place] [address] [facility] Start: 11-21-2024 End: 11-21-2024 Patient encounter procedure 11/21/2024 8:40 AM EDT Office Visit [facility] [address] [phone] Estefany Garcia, MARY [address] [phone] [facility] Start: 10-02-2024 Tobacco Screening Tobacco Screening [facility] Start: 09-26-2024 End: 09-26-2024 Patient encounter procedure 09/26/2024 10:45 AM EDT Office Visit [facility] [address] [place] [address] Yadiel Scott PA [address] [facility] 2nd Floor [place], [place] [phone] [facility] Start: 09-06-2024 End: 09-06-2024 Admission to same day surgery center 09/06/2024 8:26 AM EDT - 09/06/2024 8:33 AM EDT Surgery [facility] [address] [place] [address] Roly Dickens MD [address] [place], [place] [id number] INJECTION BLOCK SACROILIAC JOINT [54633 (CPT )] [facility] Comment on above: INJECTION BLOCK SACR OILIAC JOINT [19419 (CPT )] Start: 09-06-2024 End: 09-06-2024 Inject si joint arthrgrphy&/anes/steroid w/aileen INJECTION BLOCK SACROILIAC JOINT Disorder of sacrum 09/06/2024 8:26 AM EDT [facility] Start: 09-06-2024 Subsequent hospital visit by physician 09/06/2024 8:26 AM EDT Hospital Encounter [facility] [address] [place] [address] Roly Dickens MD [address] [place] [address] [facility] Start: 09-06-2024 End: 09-06-2024 Patient encounter procedure 09/06/2024 7:40 AM EDT Appointment [facility] [address] [place] [address] Roly Dickens MD [address] [place] [address] [facility] Start: 08-29-2024 End: 08-29-2024 Patient encounter procedure 08/29/2024 10:45 AM EDT Office Visit [facility] [address] [place] [address] Yadiel Scott PA [address], [address] [place] [address] [facility] Start: 08-23-2024 Adult BMI Screening Adult BMI Screen ing [facility] Start: 08-23-2024 Tobacco Screening Tobacco Screening [facility] Start: 08-21-2024 End: 08-21-2024 Patient encounter procedure 08/21/2024 9:00 AM EDT Office Visit [facility] [address] [address] Estefany Garcia NP [address] [address] [facility] Start: 08-19-2024 End: 08-19-2024 Patient encounter procedure 08/19/2024 10:30 AM EDT Office Visit [facility] [address] [phone] Sindhu Tong NP [address] [phone] [facility] Start: 07-09-2024 End: 07-09-2024 Patient encounter procedure 07/09/2024 12:45 PM EST Office Visit [facility] [address] [place] [phone] Yadiel Scott PA [address], [address] [place] [address] [facility] Start: 06-21-2024 End: 06-21-2024 Admission to same day surgery center 06/21/2024 7:22 AM EST - 06/21/2024 7:30 AM EST Surgery [facility] [address] [place] [phone] Roly Dickens MD [address] [place], [place] [address] INJECTION BURSA LARGE JOINT: left hip [ (CPT )] [facility] Comment on above: INJECTION BURSA LARG E JOINT: left hip [ (CPT )] Start: 06-21-2024 End: 06-21-2024 Arthrocentesis aspir&/inj major jt/bursa w/o us INJECTION BURSA LARGE JOINT Primary osteoarthritis of left hip 06/21/2024 7:22 AM EST [facility] Start: 06-21-2024 Subsequent hospital visit by physician 06/21/2024 7:22 AM EST Hospital Encounter [facility] [address] [place] [address] Roly Dickens MD [address] [place], [place] [phone] [facility] Start: 06-13-2024 Influenza vaccination Influenza Vacc ine (#1) [facility] Comment on above: Postponed from 02/10 (Patient Ill Today) Start: 05-23-2024 End: 05-23-2024 Patient encounter procedure 05/23/2024 9:45 AM EST Office Visit [facility] [address] [place] [address] Yadiel Scott PA [address], [address] [place], [place] [phone] [facility] Start: 05-16-2024 End: 05-16-2024 Patient encounter procedure [facility] Comment on above: Arrived Start: 04-26-2024 End: 04-26-2024 Admission to same day surgery center 04/26/2024 2:52 PM EST - 04/26/2024 2:59 PM EST Surgery [facility] [address] [place] [address] Roly Dickens MD [address] [place], [place] [phone] INJECTION BLOCK SACROILIAC JOINT [78637 (CPT )] [facility] Comment on above: INJECTION BLOCK SACR OILIAC JOINT [78916 (CPT )] Start: 04-26-2024 End: 04-26-2024 Inject si joint arthrgrphy&/anes/steroid w/aileen INJECTION BLOCK SACROILIAC JOINT Disorder of sacrum 04/26/2024 2:52 PM EST [facility] Start: 04-26-2024 Subsequent hospital visit by physician 04/26/2024 2:52 PM EST Hospital Encounter [facility] [address] [place] [address] Roly Dickens MD [address] [place], [place] [phone] [facility] Start: 04-24-2024 End: 04-24-2024 Patient encounter procedure 04/24/2024 10:00 AM EST Office Visit [facility] [address] [place] [address] Sindhu Tong NP [address] [facility] [place] [phone] [facility] Start: 04-09-2024 End: 04-09-2024 Patient encounter procedure 04/09/2024 9:45 AM EDT Office Visit [facility] [address] [place] [address] Yadiel Scott PA [address], [address] [place], [place] [phone] [facility] Start: 04-05-2024 End: 03-06-2025 Comprehensive metabolic 2000 panel - Serum or Plasma Comprehensive metabolic panel Lab Routine Primary hypertension (CMS/HCC) Expected: 04/05/2024 (Approximate), Expires: 03/06/2025 [facility] Work Phone: Comment on above: Expected: 04/05/2024 (Approximate), Expires: 03/06/2025 Start: 03-22-2024 End: 03-22-2024 Admission to same day surgery center 03/22/2024 7:22 AM EDT - 03/22/2024 7:30 AM EDT Surgery [facility] [address] [place] [address] Roly Dickens MD [address] [place], [place] [phone] INJECTION BLOCK EPIDURAL CAUDAL STEROID [58185 (CPT )] [facility] Comment on above: INJECTION BLOCK EPID URAL CAUDAL STEROID [97867 (CPT )] Start: 03-22-2024 End: 03-22-2024 Njx dx/ther sbst intrlmnr lmbr/sac w/img gdn INJECTION BLOCK EPIDURAL CAUDAL STEROID Spinal stenosis of lumbar region with neurogenic claudication 03/22/2024 7:22 AM EDT [facility] Start: 03-22-2024 Subsequent hospital visit by physician 03/22/2024 7:22 AM EDT Hospital Encounter [facility] [address] [place] [address] Roly Dickens MD [address] [place], [place] [address] [facility] Start: 02-29-2024 End: 02-29-2024 Patient encounter procedure 02/29/2024 8:30 AM EDT Office Visit [facility] [address] [place] [address] Yadiel Scott PA [address], [address] [place], [place] [phone] [facility] Start: 02-22-2024 End: 02-22-2024 Patient encounter procedure 02/22/2024 10:30 AM EDT Office Visit [facility] [address] [place] [address] Sindhu Tong, MARY [address] [place] [address] [facility] Start: 02-16-2024 End: 02-16-2024 Admission to same day surgery center 02/16/2024 7:03 AM EDT - 02/16/2024 7:10 AM EDT Surgery [facility] [address] [facility] [place] [address] Roly Dickens MD [address] [place], [place] [phone] INJECTION BLOCK SACROILIAC JOINT [90131 (CPT )] [facility] Comment on above: INJECTION BLOCK SACR OILIAC JOINT [25270 (CPT )] Start: 02-16-2024 End: 02-16-2024 Inject si joint arthrgrphy&/anes/steroid w/aileen INJECTION BLOCK SACROILIAC JOINT Disorder of sacrum 02/16/2024 7:03 AM EDT [facility] Start: 02-16-2024 Subsequent hospital visit by physician 02/16/2024 7:03 AM EDT Hospital Encounter [facility] [address] [place] [address] Roly Dickens MD [address] [place], [place] [address] [facility] Start: 02-15-2024 End: 02-15-2024 Patient encounter procedure 02/15/2024 8:45 AM EDT Office Visit [facility] [address] [place] [address] Yadiel Scott PA [address], [address] [place], [place] [address] [facility] Start: 02-13-2024 Screening for malign ant neoplasm of breast Mammogram [facility] Start: 02-11-2024 COVID-19 Vaccine ( season) COVID-19 Vaccine ( season) [facility] Start: 02-11-2024 COVID-19 Vaccine () COVID-19 Vaccine () [facility] Start: 02-11-2024 Influenza vaccination [facility] Start: 01-18-2024 End: 01-18-2024 Patient encounter procedure 01/18/2024 9:15 AM EDT Office Visit [facility] [address] [place] [address] Yadiel Scott PA [address], [address] [place], [place] [address] [facility] Start: 01-13-2024 Tobacco Counseling Tobacco Counselin g [facility] Start: 01-12-2024 End: 01-12-2024 Admission to same day surgery center 01/12/2024 10:08 AM EDT - 01/12/2024 10:15 AM EDT Surgery [facility] [address] [place] [address] Roly Dickens MD [address] [place], [place] [address] INJECTION BLOCK SACROILIAC JOINT [68996 (CPT )] [facility] Comment on above: INJECTION BLOCK SACR OILIAC JOINT [57488 (CPT )] Start: 01-12-2024 End: 01-12-2024 Inject si joint arthrgrphy&/anes/steroid w/aileen INJECTION BLOCK SACROILIAC JOINT Disorder of sacrum 01/12/2024 10:08 AM EDT [facility] Start: 01-12-2024 Subsequent hospital visit by physician 01/12/2024 10:08 AM EDT Hospital Encounter [facility] [address] [place] [address] Roly Dickens MD [address] [facility], [place] [address] [facility] Start: 11-30-2023 End: 11-30-2023 Patient encounter procedure 11/30/2023 9:00 AM EDT Office Visit [facility] [address] [place] [address] Alexis Rubalcava DO [address] [facility] [place] [address] [facility] Start: 10-03-2023 End: 10-03-2023 Patient encounter procedure 10/03/2023 9:45 AM EDT Office Visit [facility] [address] [place] [address] Yadiel Scott PA [address], [address] [place] [address] [facility] Start: 09-15-2023 End: 09-15-2023 Admission to same day surgery center 09/15/2023 7:26 AM EDT - 09/15/2023 7:32 AM EDT Surgery [facility] [address] [place] [address] Roly Dickens MD [address] [facility] [place] [address] INJECTION BLOCK SACROILIAC JOINT [62044 (CPT )] [facility] Comment on above: INJECTION BLOCK SACR OILIAC JOINT [45259 (CPT )] Start: 09-15-2023 End: 09-15-2023 Inject si joint arthrgrphy&/anes/steroid w/aileen INJECTION BLOCK SACROILIAC JOINT Disorder of sacrum 09/15/2023 7:26 AM EDT [facility] Start: 09-15-2023 Subsequent hospital visit by physician 09/15/2023 7:26 AM EDT Hospital Encounter [facility] [address] [facility] [place] [address] Roly Dickens MD [address] [place] [address] [facility] Start: 07-17-2023 End: 07-17-2023 Patient encounter procedure 07/17/2023 9:15 AM EST Office Visit [facility] [address] [place] [address] Shaikh Hahn MD [address] [place] [address] Arrived [facility] Comment on above: Arrived Start: 02-10-2023 COVID-19 Vaccine ( season) COVID-19 Vaccine ( season) [facility] Start: 12-05-2022 DTaP,Tdap and Td Vaccines (2 - Tdap) DTaP,Tdap and Td Vaccines (2 - Tdap) [facility] Start: 11-18-2022 Screening for malign ant neoplasm of breast Mammogram [facility] Start: 1982 Screening for malign ant neoplasm of cervix Pap Smear [facility] Start: 1979 Adult BMI Follow Up Plan Adult BMI F ollow Up Plan [facility] Start: 1973 Depression Screening Depression Scre ening [facility] Start: 1961 Screening for malign ant neoplasm of colon [facility] End: 07-09-2025 XR Pelvis and Hip - left 2 Views X-ray hip left 2-3 views with or without pelvis Imaging Routine Primary osteoarthritis of left hip 1 Occurrences starting 07/09/2024 until 07/09/2025 [facility] Work Phone: Comment on above: 1 Occurrences starti ng 07/09/2024 until 07/09/2025 XR Pelvis and Hip - left 2 Views X-ray hip left 2-3 views with or without pelvis Imaging Routine Primary osteoarthritis of left hip 07/09/2024 1:58 PM EST [facility] Immunizations Immunization Date Immunization Notes Care Provider Fa [facility] 06-07-2024 Seasonal, trivalent, recombinant, injectable influenza vaccine, preservative free Estefany Jjhholz CASE TECHNICIAN Work Phone: [facility] 06-07-2024 tetanus toxoid, redu keshia diphtheria toxoid, and acellular pertussis vaccine, adsorbed Estefany Aichholz CASE TECHNICIAN Work Phone: [facility] 07-17-2023 zoster vaccine recombinant Estefany Aichholz CASE TECHNICIAN Work Phone: [facility] 04-24-2023 zoster vaccine recombinant Shaikh Jovani ASKEW Work Phone: [facility] 03-15-2023 Pneumococcal Conjuga te PCV 20 Shaikh Jovani ASKEW Work Phone: [facility] 03-15-2023 Seasonal, quadrivale nt, recombinant, injectable influenza vaccine, preservative free Shaikh Jovani ASKEW Work Phone: [facility] 03-15-2023 influenza virus vaccine, unspecified formulation Yadiel MUNGUIA Work Phone: [facility] 04-16-2020 influenza, injectabl e, quadrivalent, preservative free Shaikh Jovani ASKEW Work Phone: [facility] 07-31-2019 Influenza, injectabl e, Madin Comstock Canine Kidney, preservative free, quadrivalent Shaikh Jovani ASKEW Work Phone: [facility] 04-19-2018 influenza, injectabl e, quadrivalent, preservative free Shaikh Jovani ASKEW Work Phone: [facility] 06-01-2017 influenza, seasonal, injectable, preservative free Shaikh Jovani ASKEW Work Phone: [facility] 03-29-2017 influenza, injectabl e, quadrivalent, preservative free Shaikh Jovani ASKEW Work Phone: [facility] 06-18-2015 influenza, seasonal, injectable, preservative free Shaikh Jovani ASKEW Work Phone: [facility] 12-05-2012 diphtheria, tetanus toxoids and pertussis vaccine Shaikh Jovani ASKEW Work Phone: [facility] Healthcare Payers Date Payer Category Payer Managed Care Other (unspecified) [facility] [id number] 2024 Private Health Insurance [id number] 2003 Private Health Insurance [id number] [id number] 1961 Unknown [id number] 2.16.840.1.597150.3.579. 2.593 1961 Unknown [id number] 2.16.840.1.997868.3.579. 2.593 1961 Unknown [id number] 2.16.840.1.498080.3.579. 2.1259 1961 Unknown [id number] 2.16.840.1.039689.3.579. 2.1259 1961 Unknown [id number] 2.16.840.1.605464.3.579. 2.1259 1961 Unknown [id number] 2.16.840.1.812510.3.579. 2.1259 1961 Unknown [id number] 2.16.840.1.068739.3.579. 2.1259 1961 Unknown [id number] 2.16.840.1.698888.3.579. 2.1259 1961 Unknown [id number] 2.16.840.1.935251.3.579. 2.1286 1961 Unknown [id number] 2.16.840.1.052783.3.579. 2.1286 1961 Unknown [id number] 2.16.840.1.484770.3.579. 2.1286 1961 Unknown [id number] 2.16.840.1.722672.3.579. 2.1286 1961 Unknown [id number] 2.16.840.1.522205.3.579. 2.1286 1961 Unknown [id number] 2.16.840.1.181728.3.579. 2.1286 1961 Unknown [id number] 2.16.840.1.234487.3.579. 2.1286 1961 Unknown [id number] 2.16.840.1.531432.3.579. 2.1286 1961 Unknown [id number] 2.16.840.1.094759.3.579. 2.[facility] 1960 Unknown [id number] 2.16.840.1.706141.3.579. 2.1286 1961 Unknown [id number] 2.16.840.1.258497.3.579. 2.[facility] 1961 Unknown [id number] 2.16.840.1.621227.3.579. 2.[facility] 1961 Unknown [id number] 2.16.840.1.981414.3.579. 2.[facility] 1961 Unknown [id number] 2.16.840.1.223828.3.579. 2.[facility] 1961 Unknown [id number] 2.16.840.1.700447.3.579. 2.[facility] 1961 Unknown [id number] 2.16.840.1.016153.3.579. 2.[facility] 1961 Unknown [id number] 2.16.840.1.415976.3.579. 2.[facility] 1961 Unknown [id number] 2.16.840.1.875072.3.579. 2.[facility] 1961 Unknown [id number] 2.16.840.1.288273.3.579. 2.[facility] 1961 Unknown [id number] 2.16.840.1.009734.3.579. 2.[facility] 1961 Unknown [id number] 2.16.840.1.861720.3.579. 2.[facility] 1960 Unknown [id number] 2.16.840.1.517814.3.579. 2.[facility] 1958 Private Health Insurance [id number] Social History Date Type Detail Facility Start: 06-12-1982 End: 01-29-2023 Tobacco smoking status NHIS Smokes tobacco daily [facility] Start: 06-12-1982 End: 09-11-2023 History of tobacco use Cigarette Smoker [facility] Start: 07-23-2020 End: 01-29-2023 Cigarettes smoked current (pack per day) - Reported 1 [facility] Start: 06-29-2023 End: 08-21-2024 Alcohol intake Lifetime non-drinker (finding) [facility] Start: 07-23-2020 End: 01-29-2023 Tobacco use panel [facility] Start: 11-27-2022 Alcohol Comment Caffeine: none [facility] Start: 1960 Sex Assigned At Not on file N [facility] Start: 12-28-2023 End: 01-24-2024 Tobacco smoking status TXIS Ex-smoker [facility] Start: 06-12-1982 End: 09-11-2023 History of tobacco use Current smoker [facility] History of tobacco use Passive smoker [facility] Start: 12-16-2021 End: 12-28-2023 Tobacco use and exposure Smokeless tobacco non-user [facility] Start: 07-09-2024 End: 08-29-2024 Alcoholic beverage intake Ex-drinker (finding) [facility] Frequency of Alcohol Consumption Never [facility] Start: 01-15-2015 Sex Female (finding) [facility] Start: 10-03-2023 End: 01-30-2024 Alcoholic beverage intake Current drinker of alcohol (finding) [facility] Start: 08-19-2021 Alcohol Comment rarely [facility] Medical Equipment Procedure Code Equipment Code Equipment Origin al Text Equipment Identifier Dates Cement Bn Bio 40 gm Rpl [id number] - [id number] Start: 09-02-2021 Cement Bn Bio 40 gm Rpl [id number] - [id number] Start: 09-02-2021 Component Ptlr 3 2mm Persona Alply Kn Strl Lf - [id number] Start: 09-02-2021 Component Fem 8 Cristopher Kn Rt Post Stab Cmnt Persona Cocr Strl - [id number] Start: 09-02-2021 Insert Artc 6-9 Cd 10mm Kn Rt Post Stab Pe Persona - [id number] Start: 09-02-2021 Baseplate Tib 5d D Kn Rt Cmnt Stm Persona Tiv Strl - [id number] Start: 09-02-2021 Clinical Notes 07-17-2023 to 08-29-2024 NILDA Turner - 08/29/2024 10:45 AM EDTPatient InstructionsTelephone Encounter - Grazyna Carter RN - 07/25/2024 12:01 PM NILDA Schumacher - 07/09/2024 12:45 PM EST Note Date & Type Note Facility 08-29-2024 History of Present illness Narrative [facility] [address] [place] [address] Patient: Roz Tavares Sex: female : 1960 Age: 64 y.o. PCP: SHAIKH JOVANI MD 08/29/2024 Roz Tavares is here for a follow up to review left hip X-ray results and f/u from starting robaxin 500 mg TID. Patient states she has only taken 3 tablets sine prescribed, will take only when pain is really bad. Date of onset of pain: 2019 , pain has lasted greater than 3 months. Chief Complaint Patient presents with Hip Pain Back Pain HPI: PT/HEP 07/2022 not helpful [...] 70% continued relief. Patient's pre op pain 6-03/21 to 06/2106/21/24 left hip injection with 100% relief for two weeks Hip Pain The incident occurred more than 1 week ago. There was no injury mechanism. The pain is present in the left hip. The quality of the pain is described as aching. The pain is at a severity of 1/10. The pain is mild. The pain has been Fluctuating since onset. Associated symptoms include tingling (right foot tingly occasionally when walking, not always). Pertinent negatives include no numbness. The symptoms are aggravated by movement. Treatments tried: tylenol with mild relief, tramadol, metocarbomal moderate relief. Back Pain This is a chronic problem. The current episode started more than 1 year ago (@ 2019). [facility] problem occurs constantly (worsens with activity). The problem has been gradually worsening since onset. The pain is present in the lumbar spine. The quality of the pain is described as aching. Pain scale: 7/10 now but can get up to 10/10 depending on activity such as prolong sitting. The pain is moderate (to severe). The pain is The same all the time. The symptoms are aggravated by standing, bending and twisting (walking). Stiffness is present: na. Associated symptoms include tingling (right foot tingly occasionally when walking, not always). Pertinent negatives include no abdominal pain, bladder incontinence, bowel incontinence, chest pain, fever, leg pain, numbness or weakness. Risk factors include poor posture, [...] APPENDECTOMY SECTION 1986, 1988 CYST REMOVAL Right 1981 ganglion CYSTOSCOPY - Bilateral Retrogrades Bilateral 04/03/2018 Performed by Chepe Bustamante MD at [facility] CYSTOSCOPY W/ URETERAL STENT PLACEMENT 2014 x 2 DILATION AND CURETTAGE OF UTERUS 1981, 1983 HYSTERECTOMY 1997 total INJECTION BLOCK EPIDURAL CAUDAL STEROID N/A 03/22/2024 Performed by Roly Dickens MD at [facility] INJECTION BLOCK EPIDURAL CAUDAL STEROID N/A 10/21/2022 Performed by Roly Dickens MD at [facility] INJECTION BLOCK EPIDURAL CAUDAL STEROID N/A 09/23/2022 Performed by Roly Dickens MD at [facility] INJECTION BLOCK SACROILIAC JOINT Left 04/26/2024 Performed by Roly Dickens MD at [facility] IN[facility]CTION BLOCK SACROILIAC JOINT Bilateral 02/09/2024 Performed by Roly Dickens MD at [facility] IN[facility]CTION BLOCK SACROILIAC JOINT Bilateral 09/15/2023 Performed by Roly Dickens MD at [facility] IN[facility]CTION BLOCK SACROILIAC JOINT Bilateral 2023 Performed by Roly Dickens MD at [facility] IN[facility]CTION BLOCK SACROILIAC JOINT Bilateral 12/23/2022 Performed by Roly Dickens MD at [facility] INJECTION BURSA LARGE JOINT: left hip Left 06/21/2024 Performed by Roly Dickens MD at [facility] OOPHORECTOMY OTHER SURGICAL HISTORY 1982 uterus reconstruction REPLACEMENT TOTAL JOINT KNEE Right 09/02/[address] Sylvester MD at [facility] TONSILLECTOMY Allergies Allergen Reactions Avelox [Moxifloxacin] Nausea [...] date: 06/12/1982 Quit date: 09/2023 Years since quittin.9 Smokeless tobacco: Never Vaping Use Vaping status: Never Used Substance and Sexual Activity Alcohol use: Not Currently Drug use: No Sexual activity: Defer Partners: Male Other Topics Concern Not on file Social History Narrative Not on file Social Drivers of Health Financial Resource Strain: Not on file Food Insecurity: No Food Insecurity (08/29/2024) Hunger Screening Food Insecurity - Worry: Never [...] and myalgias. Skin: Negative. Allergic/Immunologic: Negative. Neurological: Positive for tingling (right foot tingly occasionally when walking, not always). Negative for weakness and numbness. Hematological: Negative. Psychiatric/Behavioral: Negative. Vital Signs: BP 106/70 (BP Site: Left Arm, BP Postition: Sitting) Pulse 70 Resp 20 Physical Exam: GENERAL - Healthy [...] dermatomal distributions. Straight Leg Raise is negative. Tenderness to palpation is noted over the Bilateral SacroIliac Joint: Fabere sign (Julián's Test) is significantly positive, as is compression and distraction of the sacroiliac joints, which is consistent with some of the patient's normal pain. Gait is normal. Assessment/Treatment Plan: Roz was seen today for hip pain and back pain. Diagnoses and all orders for [...] risks and benefits and wishes to proceed. 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 Follow up 2 weeks after procedure The [...] for further evaluation. OARRS: Reviewed. Scribe Statement: Estefany So CNA, scribed for and in the presence of NILDA TURNER who performed the above service. Estefany Hoffman CNA 08/29/24 1122 NILDA Turner 09/03/24 3754 [facility] Instructions Estefany Hoffman CNA - 08/29/2024 10:45 AM EDT Facet Injection / Medial Branch [...] nearest emergency room. documented in this encounter [facility] 07-25-2024 Miscellaneous Notes Last OV: 07/09/2024 Next OV: 08/29/2024 OARRS appropriate: yes Last UDS: n/a [facility] documented in this encounter [facility] 07-25-2024 Telephone encounter Note Last OV: 07/09/2024 Next OV: 08/29/2024 OARRS appropriate: yes Last UDS: n/a [facility]acy[facility] 07-09-2024 History of Present illness Narrative [facility] [address] [place] [address] Patient: Roz Tavares Sex: female : 1960 [...] 70% continued relief. Patient's pre op pain 6-03/21 to 06/2106/21/24 left hip injection with 100% relief for two weeks Back Pain This is a chronic problem. The current episode started more than 1 year ago (@ 2019). The problem occurs intermittently (worsens with activity). [...] 04/03/2018 Performed by Chepe Bustamante MD at [facility] CYSTOSCOPY W/ URETERAL STENT PLACEMENT 2014 x 2 DILATION AND CURETTAGE OF UTERUS 1981, 1983 HYSTERECTOMY 1996 total INJECTION BLOCK EPIDURAL CAUDAL STEROID N/A 03/22/2024 Performed by Roly Dickens MD at [facility] INJECTION BLOCK EPIDURAL CAUDAL STEROID N/A 10/21/2022 Performed by Roly Dickens MD at [facility] INJECTION BLOCK EPIDURAL CAUDAL STEROID N/A 09/23/2022 Performed by Roly Dickens MD at [facility] INJECTION BLOCK SACROILIAC JOINT Left 04/26/2024 Performed by Roly Dickens MD at [facility] INJECTION BLOCK SACROILIAC JOINT Bilateral 02/09/2024 Performed by Roly Dickens MD at [facility] IN[facility]CTION BLOCK SACROILIAC JOINT Bilateral 09/15/2023 Performed by Roly Dickens MD at [facility] INJECTION BLOCK SACROILIAC JOINT Bilateral 2023 Performed by Roly Dickens MD at [facility] IN[facility]CTION BLOCK SACROILIAC JOINT Bilateral 12/23/2022 Performed by Roly Dickens MD at [facility] INJECTION BURSA LARGE JOINT: left hip Left 06/21/2024 Performed by Roly Dickens MD at [facility] OOPHORECTOMY OTHER SURGICAL HISTORY 1982 uterus reconstruction REPLACEMENT TOTAL JOINT KNEE Right 09/02/[address] Sylvester MD at [facility] TONSILLECTOMY Allergies Allergen Reactions Avelox [Moxifloxacin] Nausea [...] who performed the above service. Provider Statement: IYADIEL PA, personally performed the services described in the documentation, as scribed by Estefany Hoffman CNA in my presence, and it is both accurate and complete. Estefany Hoffman CNA 07/09/24 1329 NILDA Turner 07/09/24 1347 documented in this encounter [facility] 05-23-2024 History of Present illness Narrative [facility] [address] [place] [address] Patient: Roz Tavares Sex: female : 1960 [...] 04/03/2018 Performed by Chepe Bustamante MD at [facility] CYSTOSCOPY W/ URETERAL STENT PLACEMENT 2014 x 2 DILATION AND CURETTAGE OF UTERUS 1981, 1983 HYSTERECTOMY 1996 total INJECTION BLOCK EPIDURAL CAUDAL STEROID N/A 03/22/2024 Performed by Roly Dickens MD at [facility] INJECTION BLOCK EPIDURAL CAUDAL STEROID N/A 10/21/2022 Performed by Roly Dickens MD at [facility] INJECTION BLOCK EPIDURAL CAUDAL STEROID N/A 09/23/2022 Performed by Roly Dickens MD at [facility] INJECTION BLOCK SACROILIAC JOINT Left 04/26/2024 Performed by Roly Dickens MD at [facility] INJECTION BLOCK SACROILIAC JOINT Bilateral 02/09/2024 Performed by Roly Dickens MD at [facility] INJECTION BLOCK SACROILIAC JOINT Bilateral 09/15/2023 Performed by Roly Dickens MD at [facility] INJECTION BLOCK SACROILIAC JOINT Bilateral 2023 Performed by Roly Dickens MD at [facility] IN[facility] BLOCK SACROILIAC JOINT Bilateral 12/23/2022 Performed by Roly Dickens MD at [facility] OOPHORECTOMY OTHER SURGICAL HISTORY 1982 uterus reconstruction REPLACEMENT TOTAL JOINT KNEE Right 09/02/[address] Sylvester MD at [facility] TONSILLECTOMY Allergies Allergen Reactions Avelox [Moxifloxacin] Nausea [...] Turner 05/23/24 1153 documented in this encounter [employer] 05-23-2024 Instructions Estefany Hoffman CNA - 05/23/2024 [...] back to normal. documented in this encounter [facility] 05-23-2024 Telephone encounter Note 90 day supply please. 05/16/2024 08/19/2024 [facility] 05-23-2024 Miscellaneous Notes 90 day supply please. 05/16/2024 08/19/2024 documented in this encounter [facility] 05-16-2024 History of Present illness Narrative [...] of breath Chest pain N/V/D TX: Mucinex Blanca-Arnold Tessalon Pearles Flonase No relief Review of [...] disorder with single episode, in full remission ([facility]) Relevant Medications traZODone (Desyrel) 50 MG tablet Other Visit Diagnoses Upper respiratory tract infection, unspecified type - Primary Relevant Medications azithromycin (Zithromax) 500 MG tablet benzonatate (Tessalon Perles) 100 MG capsule predniSONE (Deltasone) 20 MG tablet documented in this encounter [facility] 05-16-2024 Instructions Sindhu Tong NP - [...] NEAREST EMERGENCY DEPARTMENT. documented in this encounter [facility] 05-02-2024 Telephone encounter Note 90 day supply please RENAE:02/22/2024 NOV:05/16/2024 [facility] 05-02-2024 Miscellaneous Notes 90 day supply please RENAE:02/22/2024 NOV:05/16/2024 documented in this encounter [facility] 04-26-2024 Miscellaneous Notes Last Office Visit: 04/09/2024 Next Office Visit: 05/23/2024 Last Urine Drug Screen: No results found for: BENZOSCRN OARRS appropriate documented in this encounter [facility] 04-26-2024 Telephone encounter Note Last Office Visit: 04/09/2024 Next Office Visit: 05/23/2024 Last Urine Drug Screen: No results found for: BENZOSCRN OARRS appropriate [facility] 04-09-2024 Telephone encounter Note Pt requesting refills on her Lipitor and her Trazodone. RENAE:02/22/2024 NOV:04/24/2024 [facility] 04-09-2024 Miscellaneous Notes Pt requesting refills on her Lipitor and her Trazodone. RENAE:02/22/2024 NOV:04/24/2024 documented in this encounter [facility] 04-09-2024 History of Present illness Narrative [facility] [address] [place] [address] Patient: Roz Tavares Sex: female : 1960 [...] 04/03/2018 Performed by Chepe Bustamante MD at [facility] CYSTOSCOPY W/ URETERAL STENT PLACEMENT 2014 x 2 DILATION AND CURETTAGE OF UTERUS 1981, 1983 HYSTERECTOMY 1996 total INJECTION BLOCK EPIDURAL CAUDAL STEROID N/A 03/22/2024 Performed by Roly Dickens MD at [facility] INJECTION BLOCK EPIDURAL CAUDAL STEROID N/A 10/21/2022 Performed by Roly Dickens MD at [facility] INJECTION BLOCK EPIDURAL CAUDAL STEROID N/A 09/23/2022 Performed by Roly Dickens MD at [facility] INJECTION BLOCK SACROILIAC JOINT Bilateral 02/09/2024 Performed by Roly Dickens MD at [facility] INJECTION BLOCK SACROILIAC JOINT Bilateral 09/15/2023 Performed by Roly Dickens MD at [facility] INJECTION BLOCK SACROILIAC JOINT Bilateral 2023 Performed by Roly Dickens MD at [facility] INJECTION BLOCK SACROILIAC JOINT Bilateral 12/23/2022 Performed by Roly Dickens MD at [facility] OOPHORECTOMY OTHER SURGICAL HISTORY 1982 uterus reconstruction REPLACEMENT TOTAL JOINT KNEE Right 09/02/[address] Sylvester MD at [facility] TONSILLECTOMY Allergies Allergen Reactions Avelox [Moxifloxacin] Nausea [...] Turner 04/09/24 1201 documented in this encounter [employer] 04-09-2024 Instructions Estefany Hoffman CNA - 04/09/2024 [...] nearest emergency room. documented in this encounter [facility] 02-29-2024 History of Present illness Narrative [facility] [address] [place] [address] Patient: Roz Tavares Sex: female : 1960 [...] 04/03/2018 Performed by Chepe Bustamante MD at [facility] CYSTOSCOPY W/ URETERAL STENT PLACEMENT 2014 x 2 DILATION AND CURETTAGE OF UTERUS 1981, 1983 HYSTERECTOMY 1996 total INJECTION BLOCK EPIDURAL CAUDAL STEROID N/A 10/21/2022 Performed by Roly Dickens MD at [facility] INJECTION BLOCK EPIDURAL CAUDAL STEROID N/A 09/23/2022 Performed by Roly Dickens MD at [facility] INJECTION BLOCK SACROILIAC JOINT Bilateral 02/09/2024 Performed by Roly Dickens MD at [facility] IN[facility]CTION BLOCK SACROILIAC JOINT Bilateral 09/15/2023 Performed by Roly Dickens MD at [facility] INJECTION BLOCK SACROILIAC JOINT Bilateral 2023 Performed by Roly Dickens MD at [facility] INJECTION BLOCK SACROILIAC JOINT Bilateral 12/23/2022 Performed by Roly Dickens MD at [facility] OOPHORECTOMY OTHER SURGICAL HISTORY 1982 uterus reconstruction REPLACEMENT TOTAL JOINT KNEE Right 09/02/[address]vester MD at [facility] TONSILLECTOMY Allergies Allergen Reactions Avelox [Moxifloxacin] Nausea [...] Turner 02/29/24 1051 documented in this encounter [facility] 02-29-2024 Instructions Estefany Hoffman CNA - 02/29/2024 [...] a safety precaution, you must have a roll off driver after a lumbar nerve root injection, [...] back to normal. documented in this encounter [employer] 02-23-2024 History of Present illness Narrative Associated [...] referral to Pulmonology documented in this encounter [facility] 02-22-2024 Instructions Sindhu Tong NP - 02/22/2024 10:30 AM EDT Referral sent to Pulmonology- They will call you! Do not restart adipex. If you develop shortness of breath at rest or with movement, chest pain, swelling in hands, legs, feet GO TO ER IMMEDIATELY!!! documented in this encounter [facility] 01-30-2024 History of Present illness Narrative [facility] [address] [place] [address] Patient: Roz Tavares Sex: female : 1960 Age: 63 y.o. PCP: SHAIKH JOVANI MD 01/30/2024 Roz Tavares is here for a(n) follow up. Currently [...] APPENDECTOMY SECTION 1986, 1988 CYST REMOVAL Right 1981 ganglion CYSTOSCOPY - Bilateral Retrogrades Bilateral 04/03/2018 Performed by Chepe Bustamante MD at [facility] CYSTOSCOPY W/ URETERAL STENT PLACEMENT 2014 x 2 DILATION AND CURETTAGE OF UTERUS 1981, 1983 HYSTERECTOMY 1996 total INJECTION BLOCK EPIDURAL CAUDAL STEROID N/A 10/21/2022 Performed by Roly Dickens MD at [facility] INJECTION BLOCK EPIDURAL CAUDAL STEROID N/A 09/23/2022 Performed by Roly Dickens MD at [facility] INJECTION BLOCK SACROILIAC JOINT Bilateral 09/15/2023 Performed by Roly Dickens MD at [facility] INJECTION BLOCK SACROILIAC JOINT Bilateral 2023 Performed by Roly Dickens MD at [facility] INJECTION BLOCK SACROILIAC JOINT Bilateral 12/23/2022 Performed by Roly Dickens MD at [facility] OOPHORECTOMY OTHER SURGICAL HISTORY 1982 uterus reconstruction REPLACEMENT TOTAL JOINT KNEE Right 09/02/[address] Sylvester MD at [facility] TONSILLECTOMY Allergies Allergen Reactions Avelox [Moxifloxacin] Nausea [...] Doshi 01/30/24 1627 documented in this encounter [facility] 01-30-2024 Miscellaneous Notes Pt calls today [...] options. Thank you! [facility] 01-30-2024 Telephone encounter Note Pt calls today stating her pain is a constant 10/10. She states that her last procedure scheduled 01/11 was cancelled and r/s for 02/15. Pt has tried heat with massage gun, with 0 help Takes about 12 tylenol daily= 0 help 0 sleep at night Would like tramadol or something to help get through the next few weeks [facility] 01-30-2024 Telephone encounter Note Patient was added to my schedule today 01/30/24 to discuss other options. Thank you! [facility] Work Phone: 12-28-2023 History of Present illness Narrative [facility] [address] [place] [address] Patient: Roz Tavares Sex: female : 1960 [...] 04/03/2018 Performed by Chepe Bustamante MD at [facility] CYSTOSCOPY W/ URETERAL STENT PLACEMENT 2013 x 2 DILATION AND CURETTAGE OF UTERUS 1981, 1983 HYSTERECTOMY 1996 total INJECTION BLOCK EPIDURAL CAUDAL STEROID N/A 10/21/2022 Performed by Roly Dickens MD at [facility] INJECTION BLOCK EPIDURAL CAUDAL STEROID N/A 09/23/2022 Performed by Roly Dickens MD at [facility] INJECTION BLOCK SACROILIAC JOINT Bilateral 09/15/2023 Performed by Roly Dickens MD at [facility] INJECTION BLOCK SACROILIAC JOINT Bilateral 2023 Performed by Roly Dickens MD at [facility] INJECTION BLOCK SACROILIAC JOINT Bilateral 12/23/2022 Performed by Roly Dickens MD at [facility] OOPHORECTOMY OTHER SURGICAL HISTORY 1982 uterus reconstruction REPLACEMENT TOTAL JOINT KNEE Right 09/02/[address]vester MD at [facility] TONSILLECTOMY Allergies Allergen Reactions Avelox [Moxifloxacin] Nausea [...] Turner 01/02/24 0858 documented in this encounter [employer] 12-28-2023 Instructions Estefany Hoffman CNA - 12/28/2023 [...] nearest emergency room. documented in this encounter [facility] [employer] [facility] 10-03-2023 History of Present illness Narrative [facility] [address] [place] [address] Patient: Roz Tavares Sex: female : 1960 Age: 63 y.o. PCP: SHAIKH JOVANI MD 10/03/2023 Roz Tavares is here for a(n) post [...] 04/03/2018 Performed by Chepe Bustamante MD at [facility] CYSTOSCOPY W/ URETERAL STENT PLACEMENT 2014 x 2 DILATION AND CURETTAGE OF UTERUS 1981, 1983 HYSTERECTOMY 1996 total INJECTION BLOCK EPIDURAL CAUDAL STEROID N/A 10/21/2022 Performed by Roly Dickens MD at [facility] INJECTION BLOCK EPIDURAL CAUDAL STEROID N/A 09/23/2022 Performed by Roly Dickens MD at [facility] INJECTION BLOCK SACROILIAC JOINT Bilateral 09/15/2023 Performed by Roly Dickens MD at [facility] INJECTION BLOCK SACROILIAC JOINT Bilateral 2023 Performed by Roly Dickens MD at [facility] INJECTION BLOCK SACROILIAC JOINT Bilateral 12/23/2022 Performed by Roly Dickens MD at [facility] OOPHORECTOMY OTHER SURGICAL HISTORY 1982 uterus reconstruction REPLACEMENT TOTAL JOINT KNEE Right 09/02/[address] Sylvester MD at [facility] TONSILLECTOMY Allergies Allergen Reactions Avelox [Moxifloxacin] Nausea [...] TURNER by Estefany Hoffman CNA. Provider Statement: IYADIEL PA, personally performed the services described in the documentation, as scribed by Estefany Hoffman CNA in my presence, and it is both accurate and complete. Estefany Hoffman CNA 10/03/23 1053 NILDA Turner 10/03/23 0724 documented in this encounter [facility] 08-24-2023 History of Present illness Narrative [facility] [address] [place] [address] Patient: Roz Tavares Sex: female : 1960 [...] 04/03/2018 Performed by Chepe Bustamante MD at [facility] CYSTOSCOPY W/ URETERAL STENT PLACEMENT 2014 x 2 DILATION AND CURETTAGE OF UTERUS 1981, 1983 HYSTERECTOMY 1996 total INJECTION BLOCK EPIDURAL CAUDAL STEROID N/A 10/21/2022 Performed by Roly Dickens MD at [facility] INJECTION BLOCK EPIDURAL CAUDAL STEROID N/A 09/23/2022 Performed by Roly Dickens MD at [facility] INJECTION BLOCK SACROILIAC JOINT Bilateral 2023 Performed by Roly Dickens MD at [facility] BLOCK SACROILIAC JOINT Bilateral 12/23/2022 Performed by Roly Dickens MD at [facility] OOPHORECTOMY OTHER SURGICAL HISTORY 1982 uterus reconstruction REPLACEMENT TOTAL JOINT KNEE Right 09/02/[address] Sylvester MD at [facility] TONSILLECTOMY Allergies Allergen Reactions Avelox [Moxifloxacin] Nausea [...] Turner 08/24/23 1208 documented in this encounter [employer] 08-24-2023 Instructions Estefany Hoffman CNA - 08/24/2023 [...] nearest emergency room. documented in this encounter [employer] 07-17-2023 History of Present illness Narrative Associated [...] disorder with single episode, in full remission (CMS/[facility]) Well controlled. Last appointment, she was weaned off of Prozac and her dose was decreased to 10 mg daily. Doing well on it. Associated Problem(s): HLD (hyperlipidemia) ([facility]) On Lipitor. C/w same. Associated Problem(s): URTI (acute upper respiratory infection) She reports feeling tired for past few days. For a couple of days, she also felt lightheaded and dizzy. Her BP was at goal and her blood glucose were normal Patient's exam indicated bilateral suppurative otitis media along with pharyngitis. Will call in oral Azithromycin for her. Associated Problem(s): Primary hypertension ([facility]) Asymptomatic. Denies CP, SOB, palpitations. Monitoring w/o [...] months (around 01/15/2024). documented in this encounter [facility] Healthcare Evaluation note Diagnosis Obstructive sleep apnea [...] disorder with single episode, in full remission ([facility]) Tobacco abuse Tobacco use disorder Mixed hyperlipidemia ([facility])- Primary Mixed hyperlipidemia Major depressive disorder with single episode, in full remission ([facility]) BMI 35.0-35.9,adult Hypersomnia with sleep apnea- Primary Hypersomnia with sleep apnea, unspecified Obstructive sleep apnea syndrome Obstructive sleep apnea (adult) (pediatric) Primary hypertension ([facility]) Unspecified essential hypertension documented [facility] encounter [facility] Diagnosis Obstructive sleep apnea syndrome- Primary Obstructive sleep apnea (adult) (pediatric) Hyperlipidemia, unspecified hyperlipidemia type ([facility]) Primary hypertension ([facility]) Unspecified essential hypertension URTI (acute upper respiratory infection) Acute upper respiratory infections of unspecified site Major depressive disorder with single episode, in full remission [place] Tobacco abuse Tobacco use disorder Mixed hyperlipidemia ([facility])- Primary Mixed hyperlipidemia Major depressive disorder with single episode, in full remission [place] BMI 35.0-35.9,adult Hypersomnia with sleep apnea- Primary Hypersomnia with sleep apnea, unspecified Obstructive sleep apnea syndrome Obstructive sleep apnea (adult) (pediatric) Major depressive disorder with single episode, in full remission [place] [facility] Diagnosis Obstructive sleep apnea syndrome- Primary Obstructive sleep apnea (adult) (pediatric) Hyperlipidemia, unspecified hyperlipidemia type ([facility]) Primary hypertension ([facility]) Unspecified essential hypertension URTI (acute upper respiratory infection) Acute upper respiratory infections of unspecified site Major depressive disorder with single episode, [place] [place] Tobacco abuse Tobacco use disorder Mixed hyperlipidemia ([facility])- Primary Mixed hyperlipidemia Major depressive disorder with single episode, in full remission ([facility]) BMI 35.0-35.9,adult Hypersomnia with sleep apnea- Primary Hypersomnia with sleep apnea, unspecified Obstructive sleep apnea syndrome Obstructive sleep apnea (adult) (pediatric) Primary osteoarthritis of left hip Primary osteoarthritis of right knee Spinal stenosis of lumbar region with neurogenic claudication documented [facility] Diagnosis Obstructive sleep apnea syndrome- Primary Obstructive sleep apnea (adult) (pediatric) Hyperlipidemia, unspecified hyperlipidemia type ([facility]) Primary hypertension ([facility]) Unspecified essential hypertension URTI (acute upper respiratory infection) Acute upper respiratory infections of unspecified site Major depressive disorder with single episode, in full remission ([facility]) Tobacco abuse Tobacco use disorder Mixed hyperlipidemia ([facility])- Primary Mixed hyperlipidemia Major depressive disorder with single episode, in full remission ([facility]) BMI 35.0-35.9,adult Hypersomnia with sleep apnea- Primary Hypersomnia with sleep apnea, unspecified Obstructive sleep apnea syndrome Obstructive sleep apnea (adult) (pediatric) Primary hypertension ([facility]) Unspecified essential hypertension documented in [facility]* Diagnosis Obstructive sleep apnea syndrome- Primary Obstructive sleep apnea (adult) (pediatric) Hyperlipidemia, unspecified hyperlipidemia type ([facility]) Primary hypertension ([facility]) Unspecified essential hypertension URTI (acute upper respiratory infection) Acute upper respiratory infections of unspecified site Major depressive disorder with single episode, in full remission ([facility]) Tobacco abuse Tobacco use disorder Mixed hyperlipidemia ([facility])- Primary Mixed hyperlipidemia Major depressive disorder with single episode, [place] full [place] [place] BMI 35.0-35.9,adult Hypersomnia with sleep apnea- Primary Hypersomnia with sleep apnea, unspecified Obstructive sleep apnea syndrome Obstructive sleep apnea (adult) (pediatric) Upper respiratory tract infection, unspecified type- Primary Major depressive disorder with single episode, in full remission ([facility]) URTI (acute upper respiratory infection) Acute upper respiratory infections of unspecified site documented [facility]* Diagnosis Hypersomnia with sleep apnea- Primary Hypersomnia with sleep apnea, unspecified Obstructive sleep apnea syndrome Obstructive sleep apnea (adult) (pediatric) documented in this [facility]* Diagnosis Obstructive sleep apnea syndrome- Primary Obstructive sleep apnea (adult) (pediatric) Hyperlipidemia, unspecified hyperlipidemia type ([facility]) Primary hypertension ([facility]) Unspecified essential hypertension URTI (acute upper respiratory infection) Acute upper respiratory infections of unspecified site Major depressive disorder with single episode, in full remission ([facility]) Tobacco abuse Tobacco use disorder Mixed hyperlipidemia ([facility])- Primary Mixed hyperlipidemia Major depressive disorder with single episode, in full remission ([facility]) BMI 35.0-35.9,adult Hypersomnia with sleep apnea- Primary Hypersomnia with sleep apnea, unspecified Obstructive sleep apnea syndrome Obstructive sleep apnea (adult) (pediatric) Upper respiratory tract infection, unspecified type- Primary Major depressive disorder with single episode, in full remission ([facility]) URTI (acute upper respiratory infection) Acute upper respiratory infections of unspecified site Tobacco abuse Tobacco use disorder documented in [facility]* Diagnosis Obstructive sleep apnea syndrome- Primary Obstructive sleep apnea (adult) (pediatric) Hyperlipidemia, unspecified hyperlipidemia type ([facility]) Primary hypertension ([facility]) Unspecified essential hypertension URTI (acute upper respiratory infection) Acute upper respiratory infections of unspecified site Major depressive disorder with single episode, in full remission ([facility]) Tobacco abuse Tobacco use disorder Mixed hyperlipidemia ([facility])- Primary Mixed hyperlipidemia Major depressive disorder with single episode, in full remission ([facility]) BMI 35.0-35.9,adult Hypersomnia with sleep apnea- Primary Hypersomnia with sleep apnea, unspecified Obstructive sleep apnea syndrome Obstructive sleep apnea (adult) (pediatric) Upper respiratory tract infection, unspecified type- Primary Major depressive disorder with single episode, in full remission ([facility]) URTI (acute upper respiratory infection) Acute upper respiratory infections of unspecified site Tobacco abuse Tobacco use disorder Major depressive disorder with single episode, in full remission ([facility]) documented [facility]* Diagnosis Osteopenia, unspecified location documented in this encounter [facility]* Diagnosis Tobacco abuse Tobacco use disorder documented in [facility]* Diagnosis Primary hypertension ([facility])- Primary Unspecified essential hypertension documented in this encounter [facility]* Diagnosis Primary hypertension ([facility])- Primary Unspecified essential hypertension documented in this [facility]* Diagnosis Obstructive sleep apnea syndrome- Primary Obstructive sleep apnea (adult) (pediatric) Hyperlipidemia, unspecified hyperlipidemia type ([facility]) Primary hypertension ([facility]) Unspecified essential hypertension URTI (acute upper respiratory infection) Acute upper respiratory infections of unspecified site Major depressive disorder with single episode, in full remission ([facility]) Tobacco abuse Tobacco use disorder Mixed hyperlipidemia ([facility])- Primary Mixed hyperlipidemia Major depressive disorder with single episode, in full remission ([facility]) BMI 35.0-35.9,adult Hypersomnia with sleep apnea- Primary Hypersomnia with sleep apnea, unspecified Obstructive sleep apnea syndrome Obstructive sleep apnea (adult) (pediatric) Upper respiratory tract infection, unspecified type- Primary Major depressive disorder with single episode, in full remission ([facility]) URTI (acute upper respiratory infection) Acute upper respiratory infections of unspecified site Major depressive disorder with single episode, in full remission ([facility]) documented in this encounter [facility]* Diagnosis Primary osteoarthritis of left hip- Primary Lumbosacral spondylosis without myelopathy [facility] Diagnosis Lumbosacral spondylosis without myelopathy- Primary [facility]* Diagnosis Obstructive sleep apnea syndrome- Primary Obstructive sleep apnea (adult) (pediatric) Hyperlipidemia, unspecified hyperlipidemia type ([facility]) Primary hypertension ([facility]) Unspecified essential hypertension URTI (acute upper respiratory infection) Acute upper respiratory infections of unspecified site Major depressive disorder with single episode, in full remission ([facility]) Tobacco abuse Tobacco use disorder Mixed hyperlipidemia ([facility])- Primary Mixed hyperlipidemia Major depressive disorder with single episode, in full remission ([facility] BMI 35.0-35.9,adult Hypersomnia with sleep apnea- Primary Hypersomnia with sleep apnea, unspecified Obstructive sleep apnea syndrome Obstructive sleep apnea (adult) (pediatric) Upper respiratory tract infection, unspecified type- Primary Major depressive disorder with single episode, in full remission ([facility]) URTI (acute upper respiratory infection) Acute upper respiratory infections of unspecified site Osteopenia, unspecified location Major depressive disorder with single episode, in full remission ([facility]) documented in this encounter [facility]* Diagnosis Disorder of sacrum- Primary Disorders of sacrum Disorder of sacrum- Primary Disorders of sacrum Disorder of sacrum Disorders of sacrum [facility] Diagnosis Disorder of sacrum- Primary Disorders of sacrum Disorder of sacrum Disorders of sacrum documented in this [facility]* Diagnosis Spinal stenosis of lumbar region with neurogenic claudication- Primary Spinal stenosis of lumbar region with neurogenic claudication- Primary Spinal stenosis of lumbar region with neurogenic claudication documented in this [facility]* Diagnosis Disorder of sacrum- Primary Disorders of sacrum Disorder of sacrum- Primary Disorders of sacrum Disorder of sacrum Disorders of sacrum [facility] Diagnosis Primary osteoarthritis of left hip- Primary Primary osteoarthritis of left hip- Primary Primary osteoarthritis of left hip [facility]* Diagnosis Obstructive sleep apnea syndrome- Primary Obstructive sleep apnea (adult) (pediatric) Hyperlipidemia, unspecified hyperlipidemia type ([facility]) Primary hypertension ([facility]) Unspecified essential hypertension URTI (acute upper respiratory infection) Acute upper respiratory infections of unspecified site Major depressive disorder with single episode, in full remission ([facility]) Tobacco abuse Tobacco use disorder Mixed hyperlipidemia ([facility])- Primary Mixed hyperlipidemia Major depressive disorder with single episode, in full remission ([facility] BMI 35.0-35.9,adult Hypersomnia with sleep apnea- Primary Hypersomnia with sleep apnea, unspecified Obstructive sleep apnea syndrome Obstructive sleep apnea (adult) (pediatric) Upper respiratory tract infection, unspecified type- Primary Major depressive disorder with single episode, in full remission ([facility]) URTI (acute upper respiratory infection) Acute upper respiratory infections of unspecified site Primary hypertension ([facility]) Unspecified essential hypertension documented in [facility]* Diagnosis Obstructive sleep apnea syndrome- Primary Obstructive sleep apnea (adult) (pediatric) Hyperlipidemia, unspecified hyperlipidemia type ([facility]) Primary hypertension ([facility]) Unspecified essential hypertension URTI (acute upper respiratory infection) Acute upper respiratory infections of unspecified site Major depressive disorder with single episode, in full remission ([facility]) Tobacco abuse Tobacco use disorder Mixed hyperlipidemia ([facility])- Primary Mixed hyperlipidemia Major depressive disorder with single episode, in full remission ([facility]) BMI 35.0-35.9,adult Primary hypertension ([facility])- Primary Unspecified essential hypertension IRIS (obstructive sleep apnea) Obstructive sleep apnea (adult) (pediatric) Age related osteoporosis, unspecified pathological fracture presence ([facility]) Class 1 obesity due to excess calories without serious comorbidity with body mass index (BMI) of 33.0 to 33.9 in adult Mixed hyperlipidemia ([facility]) Mixed hyperlipidemia Cigarette nicotine dependence without complication Major depressive disorder with single episode, in full remission ([facility]) Primary insomnia Persistent disorder of initiating or maintaining sleep Subacute sinusitis, unspecified location Tobacco abuse Tobacco use disorder documented in [facility]* Diagnosis Disorder of sacrum- Primary Disorders of sacrum Disorder of sacrum- Primary Disorders of sacrum Disorder of sacrum Disorders of sacrum [facility] filedocumented in this [facility] filedocumented in this encounter [facility] filedocumented in this encounter [facility] (narrative)* Consultation (Routine) - Pending Review Specialty Diagnoses / Procedures Referred By Contac t Referred To Contact Sleep Medicine Diagnoses Obstructive sleep apnea syndrome Procedures [place] OFFICE/OUTPATIENT [facility] 60 MINUTES Shaikh Hahn MD [address] [facility] [place] [address] Osiris Bowden MD [facility] [address] Referral ID Status Reason Start Date Expiration Date Visits Requested Visits Authorized [id number] Pending Review Specialty Services Required 07/17/2023 01/13/2024 1 1 [facility] (n[facility]ative)* Consultation (Routine) - Pending Review Specialty Diagnoses / Procedures Referred By Contac t Referred To Contact Pulmonary Disease Diagnoses Obstructive sleep apnea syndrome Procedures NC OFFICE/OUTPATIENT [facility] 60 MINUTES Sindhu Tong NP [address] [place] [address] Rober Aguilar MD [address] [place] [address] Referral ID Status Reason Start Date Expiration Date Visits Requested Visits Authorized [id number] Pending Review Specialty Services Required 03/14/2024 09/10/2024 1 1 [facility] (narrative)* Consultation (Routine) - Authorized Specialty Diagnoses / Procedures Referred By Contac t Referred To Contact Pulmonary Disease Diagnoses Hypersomnia with sleep apnea Obstructive sleep apnea syndrome Procedures NC OFFICE/OUTPATIENT [facility] 60 MINUTES Sindhu Tong NP [address] [place] [address] Vladislav Cyr MD [address] [address] Referral ID Status Reason Start Date Expiration Date Visits Requested Visits Authorized [id number] Authorized Specialty Services Required 02/22/2024 08/20/2024 1 [...] Yadiel Scott PA [address], [address] [place] [id number] Referral ID Status Reason Start Date Expiration Date V isits Requested Visits Authorized [id number] Pending Review 12/28/2023 12/27/2024 1 1 Referral ID Status Reason Start Date Expiration Date V isits Requested Visits Authorized [id number] Pending Review 08/24/2023 08/23/2024 1 1 Specialty Diagnoses / Procedures Referred By Contac t Referred To Contact Diagnoses Spinal stenosis of lumbar region with neurogenic claudication Procedures Case request operating room: INJECTION BLOCK EPIDURAL CAUDAL STEROID Yadiel Scott PA [address] [place] [address] Referral ID Status Reason Start Date Expiration Date V isits Requested Visits Authorized [id number] Pending Review 02/29/2024 02/28/2025 1 1 Additional Source Comments INFORMATION SOURCE (unrecogn ized section and content) DATE CREATED AUTHOR 08/19/2019 [facility] DATE CREATED AUTHOR AUTHOR'S ORGANIZ ATION 06/03/2022 [facility] DATE CREATED AUTHOR AUTHOR'S ORGANIZ ATION 08/23/2024 [facility] DATE CREATED AUTHOR AUTHOR'S ORGANIZ ATION 08/31/2024 [facility] Care Teams (unrecognized sec tion and content) Paint Roller Assembler Relationship Specialty Start Date End Date Shaikh Hahn MD PCP - General Internal Medicine 11/28/22 [employer]er Relationship Specialty Start Date End Date Shaikh Hhan MD PCP - General Internal Medicine 11/28/22 Paint Roller Assembler Relationship Specialty Start Date End Date Bahman Mcginnis MD [address] [place] [phone] PCP - General Family Medicine 01/24/24 Sindhu Tong NP [address] [place] [address] Nurse Practitioner Family Medicine 01/24/24 Paint Roller Assembler Relationship Specialty Start Date End Date Bahman Mcginnis MD [address] [place] [phone] PCP - General Family Medicine 01/24/24 Sindhu Tong NP [address] [place] [address] Nurse Practitioner Family Medicine 01/24/24 Paint Roller Assembler Relationship Specialty Start Date End Date Bahman Mcginnis MD [address] [place] [address] PCP - General Family Medicine 01/24/24 Sindhu Tong NP [address] [place] [address] Nurse Practitioner Family Medicine 01/24/24 Paint Roller Assembler Relationship Specialty Start Date End Date Bahman Mcginnis MD [address] [place] [address] PCP - General Family Medicine 01/24/24 Sindhu Tong NP [address] [place] [address] Nurse Practitioner Family Medicine 01/24/24 Paint Roller Assembler Relationship Specialty Start Date End Date Bahman Mcginnis MD [address] [place] [address] PCP - General Family Medicine 01/24/24 Sindhu Tong NP [address] [place] [address] Nurse Practitioner Family Medicine 01/24/24 Paint Roller Assembler Relationship Specialty Start Date End Date Bahman Mcginnis MD [address] [place] [address] PCP - General Family Medicine 01/24/24 Sindhu Tong NP [address] [place] [address] Nurse Practitioner Family Medicine 01/24/24 Paint Roller Assembler Relationship Specialty Start Date End Date Bahman Mcginnis MD [address] [place] [phone] PCP - General Family Medicine 01/24/24 Sindhu Tong NP [address] [place] [address] Nurse Practitioner Family Medicine 01/24/24 Paint Roller Assembler Relationship Specialty Start Date End Date Bahman Mcginnis MD [address] [place] [phone] PCP - General Family Medicine 01/24/24 Sindhu Tong NP [address] [place] [address] Nurse Practitioner Family Medicine 01/24/24 Paint Roller Assembler Relationship Specialty Start Date End Date Bahman Mcginnis MD [address] [place] [address] PCP - General Family Medicine 01/24/24 Sindhu Tong NP [address] [place] [address] Nurse Practitioner Family Medicine 01/24/24 Paint Roller Assembler Relationship Specialty Start Date End Date Bahman Mcginnis MD [address] [place] [phone] PCP - General Family Medicine 01/24/24 Sindhu Tong NP [address] [place] [address] Nurse Practitioner Family Medicine 01/24/24 Paint Roller Assembler Relationship Specialty Start Date End Date Bahman Mcginnis MD [address] [place] [address] PCP - General Family Medicine 01/24/24 Sindhu Tong NP [address] [place] [address] Nurse Practitioner Family Medicine 01/24/24 Paint Roller Assembler Relationship Specialty Start Date End Date Bahman Mcginnis MD [address] [place] [address] PCP - General Family Medicine 01/24/24 Sindhu Tong NP [address] [place] [address] Nurse Practitioner Family Medicine 01/24/24 Paint Roller Assembler Relationship Specialty Start Date End Date Bahman Mcginnis MD [address] [place] [phone] PCP - General Family Medicine 01/24/24 Sinduh Tong NP [address] [place] [address] Nurse Practitioner Family Medicine 01/24/24 Paint Roller Assembler Relationship Specialty Start Date End Date Bahman Mcginnis MD [address] [place] [address] PCP - General Family Medicine 01/24/24 Sindhu Tong NP [address] [place] [address] Nurse Practitioner Family Medicine 01/24/24 Paint Roller Assembler Relationship Specialty Start Date End Date Bahman Mcginnis MD [address] [place] [phone] PCP - General Family Medicine 01/24/24 Sindhu Tong NP [address] [place] [address] Nurse Practitioner Family Medicine 01/24/24 Paint Roller Assembler Relationship Specialty Start Date End Date Shaikh Hahn MD PCP - General Internal Medicine 11/16/21 Paint Roller Assembler Relationship Specialty Start Date End Date Shaikh Hahn MD [address] [address] PCP - General Internal Medicine 11/16/21 Paint Roller Assembler Relationship Specialty Start Date End Date Bahman Mcginnis MD [address] [place] [phone] PCP - General Family Medicine 01/24/24 Sindhu Tong NP [address] [place] [phone] Nurse Practitioner Family Medicine 01/24/24 Paint Roller Assembler Relationship Specialty Start Date End Date Shaikh Hahn MD PCP - General Internal Medicine 11/16/21 Paint Roller Assembler Relationship Specialty Start Date End Date Shaikh Hahn MD [address] [place] [address] PCP - General Internal Medicine 11/16/21 Paint Roller Assembler Relationship Specialty Start Date End Date Shaikh Hahn MD PCP - General Internal Medicine 11/16/21 Paint Roller Assembler Relationship Specialty Start Date End Date Shaikh Hahn MD PCP - General Internal Medicine 11/16/21 Paint Roller Assembler Relationship Specialty Start Date End Date Shaikh Hahn MD PCP - General Internal Medicine 11/16/21 Paint Roller Assembler Relationship Specialty Start Date End Date Bahman Mcginnis MD [address] [place] [phone] PCP - General Family Medicine 01/24/24 Sindhu Tong NP [address] [phone] Nurse Practitioner Family Medicine 01/24/24 Paint Roller Assembler Relationship Specialty Start Date End Date Shaikh [...] Reason Onset Date Comments Med Refill 08/01/2024 Reason Onset Date Comments Med Refill 08/22/2024 Reason Comments Hip Pain Back Pain FOR RECORDS PERTAINING TO PATIENTS [...] BE BASED ON THE PRIMARY CLINICAL RECORDS. [facility] [employer], [facility]. provides no warranty or guarantee of the accuracy or completeness of information in this document.
== END 2024-09-03 19:46 | disposition home or self-care (01) ==
LOC: SLEEP 19:45
PROVIDERS: PCP Internal Medicine; Visit Provider Internal Medicine
DX: G47.33 Obstructive sleep apnea (adult) (pediatric) (principal)
CPT/HCPCS: 95811

== ENCOUNTER 2024-09-23 08:36 | Outpatient (OUT) | payer OTHER, SELFPAY ==
[2024-09-23 09:20] LABS: Alanine Aminotransferase 21 U/L (14-59); Albumin Globulin Ratio 1.2; Albumin Level 3.7 g/dL (3.4-5.0); Alkaline Phosphatase 116 U/L (46-116); Aspartate Amino Transferase 13 U/L (15-37); Bilirubin Direct 0.1 mg/dL (0.0-0.2); Bilirubin Total 0.4 mg/dL (0.2-1.0); Gamma Glutamyl Transpeptidase 34 U/L (8-55); Total Protein 6.7 g/dL (6.4-8.2)
== END 2024-09-23 08:37 | disposition home or self-care (01) ==
LOC: LAB 08:41
PROVIDERS: PCP Internal Medicine; Visit Provider Nurse Practitioner
DX: R74.8 Abnormal levels of other serum enzymes (principal)
CPT/HCPCS: 36415; 80076; 82977

== ENCOUNTER 2024-09-23 09:00 | Outpatient (OUT) | payer OTHER, SELFPAY ==
--- NOTE | 2024-09-23 09:19 | RT_ITS ---
[facility] Test Date: 2024-09-23 Pat Name: CRISTOFER HEATH Department: Room: - Gender: Female Manufacturing Automation Engineer: Chi Tran RRT : 1960 Requested By: Rober Aguilar Order Number: [id number] Reading MD: Rober Aguilar Interpretive Statements Pulmonary function testing was completed according to ATS criteria. Findings were considered accurate and reproducible. Both pre- and post-bronchodilator values utilized for spirometry. Spirometry (based on pre-bronchodilator values): -FEV1/FVC: Normal @ 75% -FEV1: Normal @ 105% -FVC: Normal @ 108% -DVC44-52%: Normal @ 89% -There is a positive bronchodilator response in EOZ63-79%, but diagnostic and clinical significance is unclear. Lung volumes by plethysmography (based on pre-bronchodilator values): -RV: Normal @ 95% -TLC: Normal @ 107% Diffusion capacity: -DLCO: Mild-moderate reduction @ 63% when corrected for Hb 14.5g/dL Impressions: -Technically normal spirometry, though FEV1/FVC ratio is trending towards mild obstruction. No significant bronchodilator response. Normal lung volumes. Mild-moderate diffusion impairment. Overall study suggests possible underlying COPD/emphysema. Clinical correlation required. Electronically Signed On 09-23-2024 12:59:23 EDT by Rober Aguilar
[2024-09-23] MEDS: ALBUTEROL SULFATE 2.5 MG/3 ML VIAL NEB IH (09:20)
== END 2024-09-23 09:01 | disposition home or self-care (01) ==
LOC: CARD 09-24 12:00
PROVIDERS: PCP Internal Medicine; Visit Provider Internal Medicine
DX: R74.8 Abnormal levels of other serum enzymes (principal); E88.01 Alpha-1-antitrypsin deficiency; J43.2 Centrilobular emphysema
CPT/HCPCS: 36415; 80076; 82977; 94060; 94726; 94729

== ENCOUNTER 2024-12-03 12:32 | Outpatient (REF) | payer OTHER, SELFPAY ==
--- OUTSIDE RECORDS SUMMARY | 2024-07-08 10:24 | XMS_ITS ---
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 Name Role Phone SINDHU CUMMINS Primary Care Provide r Rober Mejia Unavailable [phone] REASON FOR VISIT HST Results Encounters Encounter Location Date Provider Diagnosis Pulmonary Medicine [place] [address] [place] [address] 07/08/2024 Rober Aguilar Plan Of Treatment Next Appt Details Provider Name:Rober Aguilar, 05/21/2025 09:30:00 AM, [address] [place], [address], Progress Notes * Roz HEATH LDOB: [birth year] (64 yo F)Acc No.[id number]:07/08/2024 Patient: Roz ZUNIGA :1960 A ge:64 Y S ex:Female Address:[address] [place], [address] * true * Date: Generated for Printi ng/Faxing/eTransmitting on: 0 12/03/2024 12:39 PM EDT
--- OUTSIDE RECORDS SUMMARY | 2024-08-14 09:30 | XMS_ITS ---
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 Name Role Phone SINDHU CUMMINS Primary Care Provide lacy Rae Rober Aguilar Unavailable [phone] Allergies Allergen (clinical drug ingredient) Drug/Non Drug Allergy documented on EMR Reaction Allergy Type Onset Date Status bee pollen Bee Pollen anaphylaxis Drug Allergy Act nina Medicinal cephalosporin and acting as antibacterial agent (FN) Cephalosporins hives Drug Allergy Active codeine Codeine hives Drug Allergy Active Substance with sulfonamide structure and antibacterial mechanism of action (substance) Sulfa Antibiotics hives Drug Allergy Active tramadol traMADol hives Drug Allergy Inactiv e REASON FOR VISIT 3 mos f/u Medications Medication SIG (Take, Route, Frequency, Duration) Notes Start Date End Date Status traZODone HCl 50 MG TAKE 1 TABLET BY MOUTH ONCE DAILY Oral for 90 Days Active Albuterol Sulfate HFA 108 (9 0 Base) MCG/ACT Inhalation for 34 Days Active Vitamin D3 10 MCG (400 UNIT) Oral for 30 Days Active Melatonin 10 MG as directed Orally Active hydroCHLOROthiazide 12.5 MG Oral for 90 Days Active buPROPion HCl ER (XL) 150 MG Oral for 90 Days Active Calcium 600 MG 1 tablet with meals Orally Twice a day Active FLUoxetine HCl 10 MG TAKE 1 CAPSULE BY MOUTH ONCE DAILY Oral for 90 Days Active Diclofenac Potassium 50 MG Oral for 90 Days Active EPINEPHrine (Anaphylaxis) 30 MG/30ML as directed Injection Active Alendronate Sodium 35 MG Oral for 84 Days Active Atorvastatin Calcium 20 MG Oral for 30 Days Active Social History Tobacco Use: Social History Observation Description Date Details (start date - stop date) Current some da y smoker NA - NA Tobacco Control (Standard) Question Answer Notes Tobacco use: Current some day smoker Additional Findings: Tobacco user Heavy cigarett e smoker (20-39 cigs/day) Problems Problem Type SNOMED Code ICD Code Onset Dates Problem Status W/U Status Risk Notes Problem Oceid-0-uyfwhya psin deficiency (09489143) AAT (xfxim-8-cdqhxi yp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) Active confirmed Vital Signs Weight 202.0 lbs 08/14/2024 Height 64 in 08/14/2024 Blood pressure systolic 128 mm Hg 08/15/19 25 Blood pressure diastolic 76 mm Hg 025 Temperature 97.0 degrees Fahrenheit 08/15/19 25 Heart Rate 85 /min 08/14/2024 Respiratory Rate 18 /min 08/14/2024 BMI 34.67 kg/m2 08/14/2024 Oximetry 94 % 08/14/2024 Procedures Procedure Date Ordered Date Performed Result Body Sit e Smoking/Tobacco Counseling 3 min up to 10-performed 08/14/2024 08/14/2024 N/A PFT (55577, 82269, 93818) 08/14/2024 09/23/2024 N/A Encounters Encounter Location Date Provider Diagnosis [facility] [address] [place] [address] 08/14/2024 Rober Aguilar IRSI (obstructive sle ep apnea) G47.33 ; AAT (dtjby-5-iukyyxfyyez) deficiency E88.01 ; Centrilobular emphysema J43.2 ; Cigarette nicotine dependence, uncomplicated F17.210 ; Family history of nncjd-4-fidlsdpjuue deficiency Z83.49 and Encounter for screening for malignant neoplasm of respiratory organs Z12.2 Assessments Encounter Date Diagnosis (ICD Code) Assessment Notes Treatment Notes Treatment Clinical Notes Section Notes 08/14/2024 IRIS (obstructive sleep apnea) (ICD-10 - G47.33) HST 07/02/2024 was negative for IRIS with AHI only 3.1 (must be 5 or greater). However, this is one of the rare cases where someone who does not have IRIS states she cannot sleep without the CPAP! I explained that her CPAP and supplies would not be covered by insurance now that she does not have IRIS based on the HST. As HST can sometimes underestimate the severity of IRIS, other option is to order an attended PSG. Patient will get back with me if she wants to follow through with this. Otherwise, she may try to get supplies from [employer]. 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 Explained risk of worsening emphysema with underlying AAT deficiency and that it is imperative that she stop smoking (discussed below). Now that we confirmed she has this deficiency, I recommended obtaining a baseline PFT even though she is asymptomatic. Explained that sometimes the first sign of an impending condition can be uncovered on PFT. She voiced agreement. Will review with her @ F/U, unless she has a severe diffusion impairment or FEV1, will contact her sooner. 08/14/2024 Centrilobular emphysema (ICD-10 - J43.2) Mild emphysematous changes noted on chest CT. Has AAT deficiency with MZ allele. Smoking cessation is paramount. Ordering baseline PFT even though she is currently asymptomatic. 08/14/2024 Cigarette nicotine dependence, uncomplicated (ICD-10 - F17.210) 1ppd x 43 years Discussed smoking cessation for 4 minutes. Not only does she have emphysematous changes, she now has identified AAT deficiency (MZ). Explained that smoking can amplify destruction with AAT deficiency. She is not symptomatic now, but can be if she continues to smoke. Discussed nicotine replacement therapy (patches, gum, or both together), Wellbutrin, Chantix (states she will not take this), hypnotism, accupuncture, or simply cold turkey. She declined any treatment at this time, but said she would work on it herself. LDCT 05/21/2024 shows no changes compared to 01/25/2023 - RADS-1. Next LDCT due 05/2025. 08/14/2024 Family history of wdfgc-8-aoftpykxa in deficiency (ICD-10 - Z83.49) As above, father had liver-disease associated AAT deficiency. This is seen with specific alleles such as Z, M aneudy, and S nickie. Patient does not know the father's genetics, and she states she was tested in the past but does not recall her specific genotype. Retesting her today along with actual AAT level along with gene sequencing to obtain a definitive answer. Explained to patient that if she does have AAT deficiency, smoking with it is shae to pouring gasoline on a fire - she was advised to stop smoking regardless. 08/14/2024 Encounter for screening for malignant neoplasm of respiratory organs (ICD-10 - Z12.2) Low-dose CT (LDCT) was recommended for lung cancer screening. The patient meets criteria including age 50-77, a smoking history of at least 20 pack-years, is currently smoking or has ceased smoking within the past 15 years, and has no signs or symptoms of lung cancer. Shared decision-making performed with the patient. After LDCT has been completed, will review report and/or imaging and provide appropriate recommendations for the patient, including additional follow up if needed. Patient was counseled on smoking cessation/continued tobacco abstinence. LDCT due 05/2025. Plan Of Treatment Treatment Notes Assessment Notes IRIS (obstructive sleep apnea) HST 07/02/2024 was negative for IRIS with AHI only 3.1 (must be 5 or greater). However, this is one of the rare cases where someone who does not have IRIS states she cannot sleep without the CPAP! I explained that her CPAP and supplies would not be covered by insurance now that she does not have IRIS based on the HST. As HST can sometimes underestimate the severity of IRIS, other option is to order an attended PSG. Patient will get back with me if she wants to follow through with this. Otherwise, she may try to get supplies from [employer]. 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 Explained risk of worsening emphysema with underlying AAT deficiency and that it is imperative that she stop smoking (discussed below). Now that we confirmed she has this deficiency, I recommended obtaining a baseline PFT even though she is asymptomatic. Explained that sometimes the first sign of an impending condition can be uncovered on PFT. She voiced agreement. Will review with her @ F/U, unless she has a severe diffusion impairment or FEV1, will contact her sooner. Centrilobular emphysema Mild emphysematous changes noted on chest CT. Has AAT deficiency with MZ allele. Smoking cessation is paramount. Ordering baseline PFT even though she is currently asymptomatic. Cigarette nicotine dependenc e, uncomplicated 1ppd x 43 years Discussed smoking cessation for 4 minutes. Not only does she have emphysematous changes, she now has identified AAT deficiency (MZ). Explained that smoking can amplify destruction with AAT deficiency. She is not symptomatic now, but can be if she continues to smoke. Discussed nicotine replacement therapy (patches, gum, or both together), Wellbutrin, Chantix (states she will not take this), hypnotism, accupuncture, or simply cold turkey. She declined any treatment at this time, but said she would work on it herself. LDCT 05/21/2024 shows no changes compared to 01/25/2023 - RADS-1. Next LDCT due 05/2025. Family history of alpha-1-an titrypsin deficiency As above, father had liver-disease associated AAT deficiency. This is seen with specific alleles such as Z, M aneudy, and S nickie. Patient does not know the father's genetics, and she states she was tested in the past but does not recall her specific genotype. Retesting her today along with actual AAT level along with gene sequencing to obtain a definitive answer. Explained to patient that if she does have AAT deficiency, smoking with it is shae to pouring gasoline on a fire - she was advised to stop smoking regardless. Encounter for screening for malignant neoplasm of respiratory organs Low-dose CT (LDCT) was recommended for lung cancer screening. The patient meets criteria including age 50-77, a smoking history of at least 20 pack-years, is currently smoking or has ceased smoking within the past 15 years, and has no signs or symptoms of lung cancer. Shared decision-making performed with the patient. After LDCT has been completed, will review report and/or imaging and provide appropriate recommendations for the patient, including additional follow up if needed. Patient was counseled on smoking cessation/continued tobacco abstinence. LDCT due 05/2025. Future Test Test Name Order Date CT Chest Low Dose for Screening* 025 Next Appt Details Follow Up: 9 Months, Reason: COPD, AAT deficiency Provider Name:Roberfabian Moe, 05/21/2025 09:30:00 AM, [address] [place], [address], Procedure Notes * Category Sub-Category Detail Notes Alpha-1 Antitrypsin Screening Date: 05/14/2024 Genotype: M/Z Level: 99 mg/dL Progress Notes * Roz HEATH LDOB: [birth year] (64 yo F)Acc No.[id number]:08/14/2024 Follow Up Patient: Roz ZUNIGA Provider: Tiffanie Aguilar DO :1960 A ge:64 Y S ex:Female Date:08/14/2024 Address:[address] [place] [address], [facility], [id number] Pcp:MARILYN CARLSON Check In:01:11 PM ESTCheck O ut:01:44 PM EST Subjective: * Chief Complaints: * 3 mos f/u * HPI: G eneral: Patient feels well without pulmonary complaints. Reviewed testing results: -LDCT 05/21/2024: RADS-1. No suspicious findings. Mild background emphysema. -HST 07/02/2024: N O IRIS - AHI 3.1. Patient is somewhat upset at this as she states she c annotsleep without her CPAP. -AAT returned positive for M Z(father from AAT-associated liver disease). Level lower side of normal @ 99. She continues to smoke 1ppd. Has not tried to stop. MA Intake Comments:. Patient presents for a follow-up after a HST performed on 07/02/2024 at [facility]. Patient denies any complaints or concerns with her breathing today. Patient admits to smoking daily. Patient had a AAT finger stick performed at her last visit. Patient would like to discuss the results of the testing. * ROS: G eneral/Constitutional: Fever or sweats d enies. C hange of appetite d enies. C hills d enies. W eight Change d enies. H EENT: Dry mouth f rom using PAP. S ore throat d enies. O ral Ulcers d enies. P ost Nasal Drip D enies.?Congestion D enies. H oarseness D enies. C ardiovascular: Tachycardia d enies. E deon D enies. C hest pain d enies. P alpitations d enies. R espiratory: Chest tightness d enies. P leurisy D enies. D yspnea d enies. C ough d enies. H emoptysis d enies. W heezing d enies.? G astrointestinal: Acid Reflux/GERD/Heartburn d enies. D ysphagia d enies. M usculoskeletal: Arthralgias/joint pain D enies. S kin: Easy bruising d enies. R sanam d enies. ? N eurologic: Seizures d enies. T remor d enies. H ematology: Abnormal Bleeding d enies. P sychiatric: Anxiety d enies. * Active Problem List J43.2 Centrilobular emphys alexander Modified On:05/14/2024/U Status:confirmed G47.33 IRIS (obstructive sle ep apnea) Modified On:05/14/2024U Status:confirmed F17.210 Cigarette nicotine d ependence, uncomplicated Modified On:05/14/2024U Status:confirmed E88.01 AAT (iraqe-1-csutewc psin) deficiency Modified On:08/14/2024/U Status:confirmed Z83.49 Family history of al bsn-5-elrxojpttab deficiency Modified On:05/14/2024U Status:confirmed * Medical History: * Surgical History: r ight knee replacement appendectomy section ganglion cyst-right hysterectomy tonsillectomy cystoscopy with stent placement * Hospitalization/Major Diagno stic Procedure: D enies Past Hospitalization * Family History: F ather: Alpha Antitrypsin Liver Disease, diagnosed with Diabetes mellitus without mention of complication, type II or unspecified type, not stated as uncontrolled. M other: bladder cancer.?Brother(s): leukemia. 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 D rugs/Alcohol: D rugs H ave you used drugs other than those for medical reasons in the past 12 months? N o D oes the Patient have a History of Drug Abuse in the Past? N o Caffeine I ntake: n one Do you drink alcohol?: No. Do you smoke marijuana?: Denies. * Medications: T akingAlbuterol Sulfate HFA 108 (90 Base) MCG/ACT Aerosol Solution Inhalation Alendronate Sodium 35 MG Tablet Oral Atorvastatin Calcium 20 MG Tablet Oral buPROPion HCl ER (XL) 150 MG Tablet Extended Release 24 Hour Oral Calcium 600 MG Tablet 1 tablet with meals Orally Twice a day Diclofenac Potassium 50 MG Tablet Oral EPINEPHrine (Anaphylaxis) 30 MG/30ML Solution as directed Injection FLUoxetine HCl 10 MG Capsule TAKE 1 CAPSULE BY MOUTH ONCE DAILY Oral hydroCHLOROthiazide 12.5 MG Tablet Oral Melatonin 10 MG Tablet as directed Orally traZODone HCl 50 MG Tablet TAKE 1 TABLET BY MOUTH ONCE DAILY Oral Vitamin D3 10 MCG (400 UNIT) Capsule Oral Medication List reviewed and reconciled with the patientTaking Albuterol Sulfate HFA 108 (90 Base) MCG/ACT Aerosol Solution Inhalation Taking Alendronate Sodium 35 MG Tablet Oral Taking Atorvastatin Calcium 20 MG Tablet Oral Taking buPROPion HCl ER (XL) 150 MG Tablet Extended Release 24 Hour Oral Taking Calcium 600 MG Tablet 1 tablet with meals Orally Twice a day Taking Diclofenac Potassium 50 MG Tablet Oral Taking EPINEPHrine (Anaphylaxis) 30 MG/30ML Solution as directed Injection Taking FLUoxetine HCl 10 MG Capsule TAKE 1 CAPSULE BY MOUTH ONCE DAILY Oral Taking hydroCHLOROthiazide 12.5 MG Tablet Oral Taking Melatonin 10 MG Tablet as directed Orally Taking traZODone HCl 50 MG Tablet TAKE 1 TABLET BY MOUTH ONCE DAILY Oral Taking Vitamin D3 10 MCG (400 UNIT) Capsule Oral Medication List reviewed and reconciled with the patient * Allergies: C odeine: hives - AllergyCephalosporins: hives - AllergySulfa Antibiotics: hives - AllergyBee Pollen: anaphylaxis - Allergyno[Allergies Verified] Objective: * Vitals: W t:202.0lbs, Ht: 64 in, BP:sittin/76mm Hg, Temp:Forehead:97.0F, HR:85/min, RR:18/min, BMI:34.67Index, Oxygen sat %:Room Air:94%, Ht-cm: 162.56 cm, Wt-k.63 kg. * Examination: E xam: GENERAL APPEARANCE: A ppears stated age. Skin N ormal. Mouth P ink and moist. Oropharynx M allampati Class III. Trachea M idline. Chest N ormal. Respiratory Normal M ovements, E ffort N ormal. Auscultation R emains diminished but clear without wheezes, crackles, or rhonchi. Cardiac R egular rate and rhythm. Gastrointestinal N ormal. Vascular N o edema. Musculoskeletal N ormal posture. Neurological F ocal, intact. Psychiatric A lert and oriented x3. Mentation/Cognition N ormal. Assessment: * Assessment: 1. A AT (mrrrc-0-uxkrpzycfin) deficiency - E88.01 (Primary) 2 . O SA (obstructive sleep apnea) - G47.33 3 . C entrilobular emphysema - J43.2 ?4. C igarette nicotine dependence, uncomplicated - F17.210 5 . F amily history of vtqth-6-bsonccvbcfm deficiency - Z83.49 6 . E ncounter for screening for malignant neoplasm of respiratory organs - Z12.2 Plan: * Treatment: 2. O SA (obstructive sleep apnea) Notes: HST 07/02/2024 wasnegativefor IRIS with AHI only 3.1 (must be 5 or greater). However, this is one of the rare cases where someone who does not have IRIS states she cannot sleep without the CPAP! I explained that her CPAP and supplies would not be covered by insurance now that she does not have IRIS based on the HST. As HST can sometimes underestimate the severity of IRIS, other option is to order an attended PSG. Patient will get back with me if she wants to follow through with this. Otherwise, she may try to get supplies from [employer]. 3. C entrilobular emphysema P rocedure: PFT (59712, 86351, 64455) Notes: Mild emphysematous changes noted on chest CT. Has AAT deficiency with MZ allele. Smoking cessation is paramount. Ordering baseline PFT even though she is currently asymptomatic. 4. C igarette nicotine dependence, uncomplicated I maging: CT Chest Low Dose for Screening* (Ordered for 2025) P rocedure: Smoking/Tobacco Counseling 3 min up to 10-performed (Performed Date - 08/14/2024) Notes: 1ppd x 43 years Discussed smoking cessation for 4 minutes. Not only does she have emphysematous changes, she now has identified AAT deficiency (MZ). Explained that smoking can amplify destruction with AAT deficiency. She is not symptomatic now, but can be if she continues to smoke. Discussed nicotine replacement therapy (patches, gum, or both together), Wellbutrin, Chantix (states she will not take this), hypnotism, accupuncture, or simply cold turkey. She declined any treatment at this time, but said she would work on it herself. LDCT 05/21/2024 shows no changes compared to 01/25/2023 - RADS-1. Next LDCT due 05/2025. 5. F amily history of iomas-9-kycwgunjhyr deficiency Notes: As above, father had liver-disease associated AAT deficiency. This is seen with specific alleles such as Z, M malton, and S hudsonyama. Patient does not know the father's genetics, and she states she was tested in the past but does not recall her specific genotype. Retesting her today along with actual AAT level along with gene sequencing to obtain a definitive answer. Explained to patient that if she does have AAT deficiency, smoking with it is shae to pouring gasoline on a fire - she was advised to stop smoking regardless. 6. E ncounter for screening for malignant neoplasm of respiratory organs I maging: CT Chest Low Dose for Screening* (Ordered for 2025) Notes: Low-dose CT (LDCT) was recommended for lung cancer screening. The patient meets criteria including age 50-77, a smoking history of at least 20 pack-years, is currently smoking or has ceased smoking within the past 15 years, and has no signs or symptoms of lung cancer. Shared decision-making performed with the patient. After LDCT has been completed, will review report and/or imaging and provide appropriate recommendations for the patient, including additional follow up if needed. Patient was counseled on smoking cessation/continued tobacco abstinence. LDCT due 05/2025. * Procedures: A lpha-1 Antitrypsin: Screening Date: 1 07/15/2023. Genotype: M /Z. Level: 9 9 mg/dL. * Procedure Codes: 9 9406 SMOKING CESSATION, 3-10MIN * Preventive Medicine: COVID Vaccination: H as patient had COVID Vaccination? COVID Vaccination Y es 05/11/2021 Immunization Status: P neumovacc P [id number]- 03/15/2023. I nfluenza 1 08/08/2023. Z ostivax 0 07/17/2023. B oostrix 1 08/08/2023. Screenings/Counseling: F ALL RISK SCREENING Fall Risk Assessment: N o falls in the past year Are you afraid of falling? N o T OBACCO ACTION PLAN Patient counselled on the dangers of tobacco use and urged to quit. 0 08/14/2024 Cessation counseling provided 0 08/14/2024 B AR ACTION PLAN Above Normal BMI Follow-up D ietary management education, guidance, and counseling * Follow Up: 9 Months (Reason: COPD, AAT deficiency) * * Sign off status: Completed Visit Status: C HK (Check Out) true * Provider: Tiffanie Aguilar DO Date: 0 08/14/2024 Generated for Melina blackwell/Justine/Veenaitting on: 0 12/03/2024 12:39 PM EDT History and Physical Notes * HPI (History of Present Illness) Category Sub-Category Detail Notes Category Not es General Patient present s for a follow-up after a HST performed on 07/02/2024 at [facility]. Patient denies any complaints or concerns with her breathing today. Patient admits to smoking daily. Patient had a AAT finger stick performed at her last visit. Patient would like to discuss the results of the testing. Examination Category Sub-Category Detail Notes Category Not es Exam GENERAL APPEARANCE: Appears stated age Skin Normal Mouth [place] and moist Trachea Midline Chest Normal Respiratory Normal Movements, Ef fort Normal Auscultation Remains diminished b ut clear without wheezes, crackles, or rhonchi Cardiac Regular rate and rhy thm Gastrointestinal Normal Vascular No edema Musculoskeletal Normal posture Neurological Focal, intact Psychiatric Alert and oriented x 3 Mentation/Cognition Normal Oropharynx Mallampati Class III
--- OUTSIDE RECORDS SUMMARY | 2024-08-14 10:08 | XMS_ITS ---
Author Organization The [facility] in [place] Address [address] [place] [address] Care Team Providers Care Audit Manager Name Role Phone SINDHU CUMMINS Primary Care Provide r Rober Mejia Unavailable [phone] REASON FOR VISIT Sleep study Procedures Procedure Date Ordered Date Performed Result Body Sit e Sleep study - Diagnostic Polysonogram 08/14/2024 N/A Encounters Encounter Location Date Provider Diagnosis [facility] [place] [address] [place] [address] 08/14/2024 Rober Aguilar IRIS (obstructive sleep apnea) G47.33 Assessments Encounter Date Diagnosis (ICD Code) Assessment Notes Treatment Notes Treatment Clinical Notes Section Notes 08/14/2024 IRIS (obstructive sleep apnea) (ICD-10 - G47.33) Plan Of Treatment Next Appt Details Provider Name:Rober Aguilar, 05/21/2025 09:30:00 AM, [address] [place], [address], Progress Notes * Roz HEATH LDOB: [birth year] (64 yo F)Acc No.[id number]:08/14/2024 Patient: Roz ZUNIGA :1960 A ge:64 Y S ex:Female Address:[address], [place], [address] Subjective: * Chief Complaints: * S leep study * Medical History: * Surgical History: * Hospitalization/Major Diagno stic Procedure: * Medications: Objective: * Vitals: * Physical Examination: Assessment: * Assessment: 1. O SA (obstructive sleep apnea) - G47.33 (Primary) Plan: * Treatment: * Procedure Codes: * true * Date: Generated for Melina blackwell/Justine/Dante on: 0 12/03/2024 12:39 PM EDT
--- OUTSIDE RECORDS SUMMARY | 2024-11-21 08:40 | XMS_ITS | Encounter Summary ---
Author Organization [facility] Address [address] [place] [address] Care Team Providers Care Public Health Outreach Worker Name Role Phone Bahman Mcginnis MD Primary Care Provider [phone] Rema Tong NP Unavailable [phone] Reason for Referral * Consultation (Routine) - Authorized Specialty Diagnoses / Procedures Referred By Contac t Referred To Contact General Surgery Diagnoses Colon cancer screening Procedures MI OFFICE/OUTPATIENT NEW HIGH MDM 60 MINUTES Estefany Garcia NP [address] [place] [address] Phone: tel: fax: Ricardo Kemp DO [address] [place] [address] Phone: tel: fax: Referral ID Status Reason Start Date Expiration Date Visits Requested Visits Authorized [id number] Authorized Specialty Services Required 11/21/2024 05/20/2025 1 1 * Consultation (Routine) - Closed Specialty Diagnoses / Procedures Referred By Contac t Referred To Contact Dermatology Diagnoses Bleeding pigmented skin lesion Procedures MI OFFICE/OUTPATIENT NEW HIGH MDM 60 MINUTES Estefany Garcia NP [address] [place] [address] Phone: tel: fax: Keena Irby, DRIVER'S LICENSE EXAMINER-DIRECTOR OF MARKET RESEARCH [address] [address] Phone: tel: fax: Referral ID Status Reason Start Date Expiration Date V isits Requested Visits Authorized [id number] Closed Specialty Services Required 11/21/2024 05/20/2025 1 1 Reason for Visit * Reason Comments Hypertension Encounter Details Date Type Department Care Team (Late st Contact Info) Description 11/21/2024 8:40 AM EDT Office Visit [facility] [address] [place] [address] Estefany Garcia NP [address] [place] [phone] IRIS (obstructive sleep apnea) (Primary Dx); Primary hypertension ; Class 1 obesity due to excess calories without serious comorbidity with body mass index (BMI) of 33.0 to 33.9 in adult; Cigarette nicotine dependence without complication; Colon cancer screening; Bleeding pigmented skin lesion Social History Tobacco Use Types Packs/Day Years Used Date Smoking Tobacco: Former Cigarettes 1 26.2 1 998 - 08/2023 Passive Smoke Exposure: Past Alcohol Use Standard Drinks/Week Comments Never 0 (1 standard drink = 0.6 oz pur e alcohol) Caffeine: none PHQ-2 Answer Date Recorded Patient Health Questionnaire-2 Score 0 02/22/2024 Comments Unknown Sex and Gender Information Value Date Recorded Sex Assigned at Not on file Legal Sex Female 8:02 PM EDT Gender Identity Not on file Sexual Orientation Not on file documented as of this encounter Last Filed Vital Signs Vital Sign Reading Time Taken Comments Blood Pressure 118/76 11/21/2024 8:35 AM EDT Pulse 69 11/21/2024 8:35 AM EDT Temperature 36.6 C (97.8 F) 11/21/2024 8:35 AM EDT Respiratory Rate 18 11/21/2024 8:35 AM EDT Oxygen Saturation 97% 11/21/2024 8:35 AM EDT Inhaled Oxygen Concentration - - Weight 85 kg (187 lb 6.4 oz) 11/21/2024 8:35 AM EDT Height - - Body Mass Index 32.17 08/21/2024 9:07 AM EDT documented in this encounter Patient Instructions * Patient Instructions* Estefany Garcia NP - 11/21/2024 8:40 AM EDT No med changes Referrals : dermatology and general surgery, if no call from them in 2 weeks let me know documented in this encounter Progress Notes * Estefany Garcia NP - 11/21/2024 9:03 AM EDTAssociated Problem(s): Colon cancer screening 1 episode of blood diarrhea Normally constipation, will refer for colonscopy Viridiana * DEBO PATE - 11/21/2024 8:40 AM EDT Mole on back itching frequently she tends to scratch it often- scabs and bleeds * Estefany Garcia NP - 11/21/2024 8:40 AM EDT Images from the original note were not included. Roz Tavares is a 64 y.o. female presents with chief complaint of Hypertension HPI: Skin lesion: present some time, getting more itchy, bleeds/scabs, no hx of skin cancers Hypertension This is a chronic problem. The current episode started more than 1 year ago. The problem is unchanged. The problem is controlled. Pertinent negatives include no chest pain, headaches, palpitations, peripheral edema or shortness of breath. There are no associated agents to hypertension. Risk factorsfor coronary artery disease include obesity and smoking/tobacco exposure. Past treatments include di uretics. The current treatment provides significant improvement. There are no compliance problems. There is no history of CAD/[place], heart failure or PVD. SUBJECTIVE: MEDICATIONS: Current Outpatient Medications Medication Instructions albuterol HFA 90 mcg/act inhaler 1 puff, Inhalation, Every 4 hours PRN alendronate (FOSAMAX) 35 mg, Oral, Every 7 days atorvastatin (LIPITOR) 20 mg, Oral, Nightly buPROPion XL (WELLBUTRIN XL) 150 mg, Oral, Every morning diclofenac (CATAFLAM) 50 mg, 2 times daily EPINEPHrine (EpiPen 2-Bernardino) 0.3 MG/0.3ML injection syringe Once FLUoxetine (PROZAC) 10 mg, Oral, Daily fluticasone (Flonase) 50 MCG/ACT nasal spray 1 spray, Daily hydroCHLOROthiazide (HYDRODIURIL) 12.5 mg, Oral, Daily melatonin 10 mg, Nightly traZODone (DESYREL) 50 mg, Oral, Nightly ALLERGIES: Allergies Allergen Reactions Bee Venom Anaphylaxis Codeine GI intolerance and Nausea Only Other Reaction(s): Hives, Unknown, Vomiting nausea Moxifloxacin Hives and Nausea Only Other Reaction(s): Unknown, Vomiting Tramadol Hives and Nausea Only Other Reaction(s): Unknown, Vomiting Cephalexin Hives Other Reaction(s): Unknown Mixed Vespid Venom GI intolerance Moxifloxacin Hcl In Nacl Nitrofurantoin Hives Other Reaction(s): Unknown Sulfamethoxazole Hives Trimethoprim Hives Cephalosporins Rash cephalexin Sulfamethoxazole-Trimethoprim Hives and Rash Other Reaction(s): Unknown REVIEW OF SYMPTOMS: Review of Systems Constitutional: Negative for appetite change, chills and fever. HENT: Negative for congestion, ear pain and sore throat. Eyes: Negative for pain, discharge, redness and visual disturbance. Respiratory: Negative for cough, shortness of breath and wheezing. Cardiovascular: Negative for chest pain, palpitations and leg swelling. Gastrointestinal: Negative for abdominal pain, blood in stool, constipation, diarrhea, nausea and vomiting. Genitourinary: Negative for difficulty urinating, dysuria and frequency. Musculoskeletal: Negative for arthralgias, back pain, joint swelling and myalgias. Skin: Negative for rash and wound. Neurological: Negative for dizziness, tremors, seizures, syncope and headaches. Psychiatric/Behavioral: Negative for behavioral problems, self-injury and suicidal ideas. The patient is not nervous/anxious. Hematological: Does not bruise/bleed easily. Endocrine: Negative for polydipsia, polyphagia and polyuria. Allergic/Immunologic: Negative for environmental allergies and food allergies. PAST MEDICAL HISTORY Past Medical History: Diagnosis Date Abnormal blood sugar Allergic rhinitis Blood pressure elevated without history of HTN Boil, groin Bronchitis Depression HLD (hyperlipidemia) Hyperlipidemia Ingrown toenail of right foot Left foot pain Left hip pain Left lower quadrant abdominal pain Low back pain Neoplasm of uncertain behavior of back Onychomycosis Osteoarthritis Osteopenia Osteoporosis Plantar fascial fibromatosis of left foot Post-menopausal Seasonal allergies Tobacco user Toe pain, right Vaginal dryness, menopausal Past Surgical History: Procedure Laterality Date APPENDECTOMY 1974 BOTOX INJECTION 2012 neck SECTION, LOW TRANSVERSE [1986. 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 OBJECTIVE: Visit Vitals BP 118/76 (BP Location: Left arm, Patient Position: Sitting, BP Cuff Size: Adult long) Pulse 69 Temp 97.8 ??F (Temporal) Resp 18 Wt 187 lb 6.4 oz SpO2 97% BMI 32.17 kg/m?? Smoking Status Former BSA 1.96 m?? Physical Exam Vitals and nursing note reviewed. Constitutional: General: She is not in acute distress. Appearance: Normal appearance. HENT: Head: Normocephalic and atraumatic. Right Ear: External ear normal. Left Ear: External ear normal. Nose: Nose normal. Mouth/Throat: Mouth: Mucous membranes are moist. Eyes: Extraocular Movements: Extraocular movements intact. Conjunctiva/sclera: Conjunctivae normal. Neck: Vascular: No carotid bruit. Cardiovascular: Rate and Rhythm: Normal rate and regular rhythm. Pulses: Normal pulses. Heart sounds: Normal heart sounds. Pulmonary: Effort: Pulmonary effort is normal. Breath sounds: Normal breath sounds. No wheezing or rhonchi. Abdominal: General: Bowel sounds are normal. There is no distension. Palpations: Abdomen is soft. There is no mass. Tenderness: There is no abdominal tenderness. Musculoskeletal: General: Normal range of motion. Cervical back: Normal range of motion and neck supple. Skin: General: Skin is warm and dry. Capillary Refill: Capillary refill takes 2 to 3 seconds. Findings: Lesion (left flank area 55mbW6we linear, irregular borders various color) present. No rash. Neurological: General: No focal deficit present. Mental Status: She is alert and oriented to person, place, and time. Psychiatric: Mood and Affect: Mood normal. Behavior: Behavior normal. Thought Content: Thought content normal. Judgment: Judgment normal. ASSESSMENT AND PLAN: Follow up in about 3 months (around 02/21/2025) for Recheck. Problem List Items Addressed This Visit Primary hypertension Please check blood pressure daily and record DASH diet Limit caffeine Take medication as directed Contact office if chest pain, pressure, dizziness, shortness of breath, swelling legs Recommend slow position changes Current med: hydrochlorothiazide IRIS (obstructive sleep apnea) - Primary You have a diagnosis of obstructive sleep apnea. It is recommended that you wear your PAP device any time while in bed sleeping. Not using the PAP device can increase your risk of elevated/uncontrolled high blood pressure, atrial fibrillation, heart attack, stroke, or sudden . Compliance with PAP: yes How many hours of use per night: 6-9 hours Do you feel more refreshed in the morning: feels like she slept, but still tired Company that supplies your machine and tubing/filters etc: Total Respiratory Provider; [facility] Class 1 obesity due to excess calories without serious comorbidity in adult Discussed with patient their BMI (actual, verses recommended). We have also discussed lifestyle modifications: attempts to perform physical activity as chronic conditions allow, also to monitor dietary intake: increasing protein/fruits/veggies and lowering carb intake (unless contraindicated). Limit sodas, juices, and sugary drinks. Has lost 6 pounds since last visit Cigarette nicotine dependence without complication The patient has been advised of the risks of continued smoking: stroke, [place], all forms of cancer, lung disease, and . Options for quitting smoking include: cold turkey, hypnosis, acupuncture, nicotine replacement meds(gum, lozenges, and patches), Buproprion, and Varenicline. At this time pt is encouraged to evaluate their goals for wanting to quit smoking, and reach out toprovider when ready to start this process Colon cancer screening 1 episode of blood diarrhea Normally constipation, will refer for colonscopy Grillis Relevant Orders Ambulatory referral to General Surgery Bleeding pigmented skin lesion Relevant Orders Ambulatory referral to Dermatology ' * Estefany Garcia NP - 11/21/2024 6:03 AM EDTAssociated Problem(s): Encounter for screening for malignant neoplasm of lung Patient meets requirements for low dose CT scan for lung cancer screening: age 55-80, patient is a current smoker or has quit in the last 15 years. Smoking history is > or equal to 30 pack-year. If needed the patient is able or willing to receive treatment. The patient is not currently exhibiting any s/s of lung cancer. We have discussed the benefits as well as harms of screening, follow up testing if needed, false positive rates. We have also discussed that this type of CT scan has less radiation exposure than a traditional lung CT scan. We have also discussed that it is important to follow with annual screening for this. The patient has also been counseled on the importance of smoking cessation. * Estefany Garcia NP - 11/21/2024 6:02 AM EDTAssociated Problem(s): Cigarette nicotine dependence without complication The patient has been advised of the risks of continued smoking: stroke, [place], all forms of cancer, lung disease, and . Options for quitting smoking include: cold turkey, hypnosis, acupuncture, nicotine replacement meds(gum, lozenges, and patches), Buproprion, and Varenicline. At this time pt is encouraged to evaluate their goals for wanting to quit smoking, and reach out toprovider when ready to start this process * Estefany Garcia NP - 11/21/2024 6:01 AM EDTAssociated Problem(s): Class 1 obesity due to excess calories without serious comorbidity in adult Discussed with patient their BMI (actual, verses recommended). We have also discussed lifestyle modifications: attempts to perform physical activity as chronic conditions allow, also to monitor dietary intake: increasing protein/fruits/veggies and lowering carb intake (unless contraindicated). Limit sodas, juices, and sugary drinks. Has lost 6 pounds since last visit * Estefany Garcia NP - 11/21/2024 6:01 AM EDTAssociated Problem(s): Primary hypertension Please check blood pressure daily and record DASH diet Limit caffeine Take medication as directed Contact office if chest pain, pressure, dizziness, shortness of breath, swelling legs Recommend slow position changes Current med: hydrochlorothiazide * Estefany Garcia NP - 11/21/2024 6:01 AM EDTAssociated Problem(s): IRIS (obstructive sleep apnea) You have a diagnosis of obstructive sleep apnea. It is recommended that you wear your PAP device any time while in bed sleeping. Not using the PAP device can increase your risk of elevated/uncontrolled high blood pressure, atrial fibrillation, heart attack, stroke, or sudden . Compliance with PAP: yes How many hours of use per night: 6-9 hours Do you feel more refreshed in the morning: feels like she slept, but still tired Company that supplies your machine and tubing/filters etc: Total Respiratory Provider; Jeff documented in this encounter Plan of Treatment Upcoming Encounters Date Type Department Care Team (Late st Contact Info) Description 02/25/2025 9:00 AM EDT Office Visit [facility] [address] [place] [address] Estefany Garcia NP [address] [phone] 05/29/2025 10:10 AM EST Office Visit [facility] [address] [place] [phone] Keena IrbyYESSENIAN-DIRECTOR OF MARKET RESEARCH [address] [place], [place] [id number] 12/09/2025 9:00 AM EDT Office Visit [facility] [address] [place] [address] Alexis Rubalcava, DO [address] [place], [place] [phone] Scheduled Referrals Name Type Priority Associated Diagnoses Order Schedule Ambulatory referral to Dermatology Outpatient Referral Routine Bleeding pigmented skin lesion Expected: 11/21/2024 (Approximate), Expires: 05/23/2025 Ambulatory referral to General Surgery Outpatient Referral Routine Colon cancer screening Expected: 11/21/2024 (Approximate), Expires: 05/23/2025 documented as of this encounter Visit Diagnoses Diagnosis IRIS (obstructive sleep apnea)- Primary Obstructive sleep apnea (adult) (pediatric) Primary hypertension Unspecified essential hypertension Class 1 obesity due to excess calories without serious comorbidity with body mass index (BMI) of 33.0 to 33.9 in adult Cigarette nicotine dependence without complication Colon cancer screening Special screening for malignant neoplasms, colon Bleeding pigmented skin lesion documented in this encounter Care Teams Public Health Outreach Worker Relationship Specialty Start Date End Date Bahman Mcginnis MD [address] [phone] PCP - General Family Medicine 01/24/24 Rema Tong NP [address] [phone] Nurse Practitioner Family Medicine 01/24/24 documented as of this encounter
--- OUTSIDE RECORDS SUMMARY | 2024-11-26 10:55 | XMS_ITS | Encounter Summary ---
Author Organization [facility] Address [address] [place] [address] Care Team Providers Care Tow Motor Operator Name Role Phone Bahman Mcginnis MD Primary Care Provider [phone] Rema Tong AUTOMATIC TRANSMISSION MECHANIC Unavailable [phone] Reason for Visit * Reason Comments Suspicious Skin Lesion * Consultation (Routine) - Closed Specialty Diagnoses / Procedures Referred By Contabel law Referred To Contact Dermatology Diagnoses Bleeding pigmented skin lesion Procedures [place] OFFICE/OUTPATIENT [facility] 60 MINUTES Estefany Garcia NP [address] [place] [address] Phone: tel: fax: Keena Irby APRN-SPRAY OPERATOR [address] [facility] [address] [place] [address] Phone: tel: fax: Referral ID Status Reason Start Date Expiration Date V isits Requested Visits Authorized [id number] Closed Specialty Services Required 11/21/2024 05/20/2025 1 1 Encounter Details Date Type Department Care Team (Late st Contact Info) Description 11/26/2024 10:55 AM EDT Office Visit [facility] [address] [facility] [address] [place] [phone] Keena Irby APRN-SPRAY OPERATOR [address] [facility] [address] [place] [address] Seborrheic keratosis (Primary Dx); Inflamed seborrheic keratosis Social History Tobacco Use Types Packs/Day Years [...] on file documented as of this encounter Progress Notes * Keena Irby, SENIOR CYBER SECURITY ANALYST-SPRAY OPERATOR - 11/26/2024 10:55 AM EDT Lesions: Location: mid back Duration: years Quality: itchy, bleeding Modifying factors: rubs on clothing Associated symptoms: non-healing Treatments: none Lesion # 2: Location: left lower back Duration: years Quality: denies pain, denies itch, denies bleeding Modifying factors: rubs on clothing Associated symptoms: non-healing Treatments: none New patient All pertinent medical history, medications, and allergies were reviewed. General Exam: alert, oriented to person, place, and time, normal affect, well appearing Unaccompanied A focused exam completed based on patient reported problems, see below: Skin Exam 1. SEBORRHEIC KERATOSIS Trunk Stuck on verrucous, variably pigmented papules and plaques. Patient was counseled regarding these benign growths. Removal is normally not necessary, but they may be removed if they are symptomatic or for cosmetic reasons. Related Procedures Ambulatory referral to Dermatology 2. INFLAMED SEBORRHEIC KERATOSIS (2) Left Lower Back, Mid Back Inflamed seborrheic keratoses: pink and brown stuck on verrucous scaly papule with surrounding erythema and bloody crust. The patient was informed that symptomatic seborrheic keratoses are benign growths that become inflamed, itchy, tender, traumatized, caught on clothing, or bleed. Symptomatic lesions can be treated with cryotherapy or curretage. Thicker lesions treated with cryotherapy may require more than one treatment. The patient was instructed to notify the office if abnormal redness or tenderness develops atthe treatment site. Cryotherapy today, see procedure note. Diagnosis: Inflamed seborrheic keratosis Indication: Inflamed Consent: Verbal consent was obtained and risks were discussed, including, but not limited to risks of scarring, darker or computer hardware designer pigmentary changes, recurrence, incomplete removal and infection. Method: Liquid nitrogen was used to treat the lesion(s) with two 5-10 second freeze-thaw cycles Number of lesions treated: 2 Post-procedure instructions: Instructions were given orally and in writing. The office will be contacted if the lesion fails to resolve despite treatment, or if a side effect develops such as abnormal crusting, scabbing, redness or tenderness Cryotherapy, skin lesion - Left Lower Back, Mid Back Next Visit: rec pt schedule FBSE documented in this encounter Plan of Treatment Upcoming Encounters Date Type Department Care Team (Late st Contact Info) Description 02/25/2025 9:00 AM EDT Office Visit [facility] [address] [place] [address] Estefany Garcia NP [address] [address] 05/29/2025 10:10 AM EST Office Visit [facility] [address] [place] [phone] Keena Irby APRN-CNP [address] [place] [address] 12/09/2025 9:00 AM EDT Office Visit [facility] [address] [place] [phone] Alexis Rubalcava, DO [address] [place] [address] documented as of this encounter Procedures Procedure Name Priority Date/Time Associated Diagnosis Comments CRYOTHERAPY SKIN LESION Routine 11/27/19 10:48 AM EDT Inflamed seborrheic keratosis documented in this encounter Results * Cryotherapy, skin lesion (11/26/2024 10:48 AM EDT) us Keena Irby SENIOR CYBER SECURITY ANALYST-SPRAY OPERATOR DERM PROCEDURE ORDERAB LES Final Result documented in this encounter Visit Diagnoses Diagnosis Seborrheic keratosis- Primary Inflamed seborrheic keratosis documented in this encounter Care Teams Tow Motor Operator Relationship Specialty Start Date End Date Bahman Mcginnis MD [address] [place] [address] PCP - General Family Medicine 01/24/24 Rema Tong NP [address] [place] [phone] Nurse Practitioner Family Medicine 01/24/24 documented as of this encounter
--- OUTSIDE RECORDS SUMMARY | 2024-12-03 10:00 | XMS_ITS | Encounter Summary ---
Author Organization [facility] Address [address] [place] [address] Care Team Providers Care Pin Sorter And Bagger Name Role Phone Bahman Mcginnis MD Primary Care Provider [phone] Rema Tong TECHNICAL SYSTEM ANALYST Unavailable [phone] Reason for Visit * Reason Comments Well Women Visit Encounter Details Date Type Department Care Team (Late st Contact Info) Description 12/03/2024 10:00 AM EDT Office Visit [facility] [address] [place] [phone] Alexis Rubalcava, DO [address] [facility] [address] [place], [place] [phone] Well woman exam with routine gynecological exam; Encounter for screening mammogram for malignant neoplasm of breast; Postmenopausal state Social History Tobacco Use Types Packs/Day Years Used Date Smoking Tobacco: Former Cigarettes 1 26.2 1 998 - 08/2023 Passive Smoke Exposure: Past Alcohol Use Standard Drinks/Week Comments Never 0 (1 standard drink = 0.6 oz pur e alcohol) Caffeine: none PHQ-2 Answer Date Recorded Patient Health Questionnaire-2 Score 0 02/22/2024 Comments No Sex and Gender Information Value Date Recorded Sex Assigned at Not on file Legal Sex Female 8:02 PM EDT Gender Identity Not on file Sexual Orientation Not on file documented as of this encounter Last Filed Vital Signs Vital Sign Reading Time Taken Comments Blood Pressure 130/76 12/03/2024 10:16 AM EDT Pulse - - Temperature - - Respiratory Rate - - Oxygen Saturation - - Inhaled Oxygen Concentration - - Weight 86 kg (189 lb 8 oz) 12/03/2024 10:16 AM E DT Height - - Body Mass Index 32.53 08/21/2024 9:07 AM EDT documented in this encounter Progress Notes * Cassandra Zamora LPN - 12/03/2024 10:00 AM EDT Reason for Appointment: Patient ID: Roz Tavares is a 64 y.o. female who presents for Well Women Visit Patient presents today for Annual Exam. MEDICATIONS Current Outpatient Medications Medication Instructions albuterol HFA [...] Nightly traZODone (DESYREL) 50 mg, Oral, Nightly ALLERGIES Allergies Allergen Reactions Bee Venom Anaphylaxis Codeine [...] Sulfamethoxazole-Trimethoprim Hives and Rash Other Reaction(s): Unknown PROBLEMS Active Ambulatory Problems Diagnosis Date Noted Osteoporosis 03/19/2018 Primary osteoarthritis of left hip 07/17/2023 Primary osteoarthritis of right knee 07/19/2021 S/P total knee replacement, right 10/27/2021 Spinal stenosis of lumbar region with neurogenic claudication 09/08/2022 Primary hypertension 07/17/2023 Major depressive disorder with single episode, in full remission 07/17/2023 Wheezing-associated respiratory infection (WARI) 10/04/2023 Seasonal allergies BMI 35.0-35.9,adult 01/24/2024 IRIS (obstructive sleep apnea) 08/21/2024 Class 1 obesity due to excess calories without serious comorbidity in adult 08/21/2024 Mixed hyperlipidemia 08/21/2024 Cigarette nicotine dependence without complication 08/21/2024 Primary insomnia 08/21/2024 Sinusitis 08/21/2024 Alkaline phosphatase elevation 08/26/2024 Colon cancer screening 11/21/2024 Encounter for screening for malignant neoplasm of lung 11/21/2024 Bleeding pigmented skin lesion 11/21/2024 Resolved Ambulatory Problems Diagnosis Date Noted HLD (hyperlipidemia) 03/19/2018 Hypersomnia with sleep apnea 07/17/2023 Sleep apnea 03/19/2018 Tobacco abuse 07/17/2023 URTI (acute upper respiratory infection) 07/17/2023 Non-recurrent acute suppurative otitis media of both ears without spontaneous rupture of tympanic membranes 10/04/2023 Past Medical History: Diagnosis Date Abnormal blood sugar Allergic rhinitis Alpha 1-antitrypsin PiMS phenotype Blood pressure elevated without history of HTN Boil, groin Bronchitis Depression Hyperlipidemia Ingrown toenail of right foot Left foot pain Left hip pain Left lower quadrant abdominal pain Low back pain Neoplasm of uncertain behavior of back Onychomycosis Osteoarthritis Osteopenia Plantar fascial fibromatosis of left foot Post-menopausal Tobacco user Toe pain, right Vaginal dryness, menopausal HISTORY PAST MEDICAL HISTORY SOCIAL HISTORY Past Medical History: Diagnosis Date Abnormal blood sugar Allergic rhinitis Alpha 1-antitrypsin PiMS phenotype Blood pressure elevated without history of HTN Boil, groin Bronchitis Depression HLD (hyperlipidemia) Hyperlipidemia Ingrown toenail of right foot Left foot pain Left hip pain Left lower quadrant abdominal pain Low back pain Neoplasm of uncertain behavior of back Onychomycosis Osteoarthritis Osteopenia Osteoporosis Plantar fascial fibromatosis of left foot Post-menopausal Seasonal allergies Tobacco user Toe pain, right Vaginal dryness, menopausal Social History Tobacco Use Smoking status: Former Current packs/day: 0.00 Average packs/day: 1 pack/day for 26.2 years (26.2 ttl pk-yrs) Types: Cigarettes Start date: 1997 Quit date: 08/2023 Years since quittin.3 Passive exposure: Past Smokeless tobacco: Not on file Vaping Use Vaping status: Never Used Substance Use Topics Alcohol use: Never Comment: Caffeine: none Drug use: Never FAMILY HISTORY Family History Problem Relation Name Age of Onset Other (bladder cancer) Mother Hypertension Mother Cancer Mother Diabetes Father Liver disease Father Diabetes Maternal Grandmother Heart disease Maternal Grandfather Diabetes Maternal Grandfather Diabetes Paternal Grandmother Diabetes Paternal Grandfather Heart disease Paternal Grandfather SURGICAL HISTORY Past Surgical History: Procedure Laterality Date APPENDECTOMY 1974 BOTOX INJECTION 2012 neck SECTION, LOW TRANSVERSE [1986. 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 HENT: Negative. Eyes: Negative. Respiratory: Negative. Cardiovascular: Negative. Gastrointestinal: Negative. Genitourinary: Negative. Musculoskeletal: Negative. Skin: Negative. Neurological: Negative. All other systems reviewed and are negative. Hematological: Negative. Endocrine: Negative. Allergic/Immunologic: Negative. OBJECTIVE Objective: Physical Exam Constitutional: Appearance: Normal appearance. She is well-developed. Genitourinary: Vulva normal. Vaginal cuff intact. Cervix is absent. Uterus is absent. Cardiovascular: Rate and Rhythm: Normal rate and regular rhythm. Abdominal: General: Bowel sounds are normal. There is no distension. Palpations: Abdomen is soft. Tenderness: There is no abdominal tenderness. There is no guarding or rebound. Musculoskeletal: General: No swelling. Normal range of motion. Right lower leg: No edema. Left lower leg: No edema. Neurological: Mental Status: She is alert and oriented to person, place, and time. Skin: General: Skin is warm and dry. Psychiatric: Mood and Affect: Mood normal. Behavior: Behavior normal. Vitals and nursing note reviewed. Exam conducted with a director pharmacy services present. Vitals: Estimated body mass index is 32.53 kg/m?? as calculated from the following: Height as of 08/21/24: 5' 4 . Weight as of this encounter: 189 lb 8 oz. BP: 130/76 No LMP recorded. Patient has had a hysterectomy. ASSESSMENT & PLAN ICD-10-CM 1. Well woman exam with routine gynecological exam Z01.419 THIN PREP TIS PAP AND HR HPV DNA 2. Encounter for screening mammogram for malignant neoplasm of breast Z12.31 Bilateral screening mammogram Bilateral screening mammogram 3. Postmenopausal state Z78.0 DEXA bone density Orders Placed This Encounter Procedures Bilateral screening mammogram DEXA bone density Annual Wellness Exam (Post Hysterectomy): Patient presents today for routine annual exam. Patient states she has no current complaints. Patients vitals were reviewed and within normal limits. Growth and development is noted to be appropriate for age. Menstrual history is noted to be obsolete due to patients history of hysterectomy. No mental health concerns was expressed. Pap Smear: Speculum was inserted into the vagina and pap was obtained without difficulty. HPV testing was performed per guidelines. Patient was advised that pap results could take anywhere from 7 to 10 days to receive and our office will reach out to the patient with those once we have them. Patient can also view results via [employer]. I reinforced importance of condom use for STI prevention. Patient declined cultures to be performed with today's visit. Breast Exam: Upon examination, clinical breast exam was noted to be normal. Patient was counseled on breast self-awareness, including the importance of knowing what is normal for her own breasts and promptly reporting any changes such as new lumps, skin dimpling, nipple discharge, or pain. Screening mammogram recommended annually beginning at age 40 or earlier if risk factors are present. Discussed signs and symptoms of breast cancer and when to seek medical attention. Answered all patient questions. Follow Up: Patient is to return to our office in one year for annual exam unless needed otherwise. Documented by Cassandra Zamora LPN on behalf of: Alexis Rubalcava DO documented in this encounter Plan of Treatment Upcoming Encounters Date Type Department Care Team (Late st Contact Info) Description 02/25/2025 9:00 AM EDT Office Visit [facility] [address] [place] [address] Estefany Garcia NP [address] [place] [address] 05/29/2025 10:10 AM EST Office Visit [facility] [address] [place] [address] Keena Irby, RFP WRITER-CASINO SURVEILLANCE OFFICER [address] [place] [address] 12/09/2025 9:00 AM EDT Office Visit [facility] [address] [facility] [place] [address] Alexis Rubalcava, DO [address] [facility] [place] [address] Scheduled Orders Name Type Priority Associated Diagnoses Orde r Schedule Bilateral screening mammogram Imaging Routine Encounter for screening mammogram for malignant neoplasm of breast Expected: 12/03/2024, Expires: 02/02/2026 DEXA bone density Imaging Routine Postmenopausal state Expected: 12/03/2024 (Approximate), Expires: 12/03/2025 THIN PREP TIS PAP AND HR HPV DNA Pathology and Cytology Routine Well woman exam with routine gynecological exam Ordered: 12/03/2024 documented as of this encounter Visit Diagnoses Diagnosis Well woman exam with routine gynecological exam Routine gynecological examination Encounter for screening mammogram for malignant neoplasm of breast Postmenopausal state Asymptomatic postmenopausal status (age-related) (natural) documented in this encounter Care Teams Pin Sorter And Bagger Relationship Specialty Start Date End Date Bahman Mcginnis MD [address] [place] [phone] PCP - General Family Medicine 01/24/24 Rema Tong NP [address] [place] [phone] Nurse Practitioner Family Medicine 01/24/24 documented as of this encounter
--- OUTSIDE RECORDS SUMMARY | 2024-12-03 12:40 | XMS_ITS | Encounter Summary ---
Author Organization [facility] Address [address] [place] [address] Care Team Providers Care Regulatory Services Consultant Name Role Phone Bahman Mcginnis MD Primary Care Provider [phone] Rema Tong FABRIC LAY OUT WORKER Unavailable [phone] Encounter Details Date Type Department Care Team (Late st Contact Info) Description 01/29/2024 Clinisync Result Encounter [facility] External Department Unsolicited Luis Rubalcava, DO [address] [facility] [address] [place], [place] [id number] Social History Tobacco Use Types Packs/Day Years Used Date Smoking Tobacco: Former Cigarettes 1 26.2 1 998 - 08/2023 Passive Smoke Exposure: Past Alcohol Use Standard Drinks/Week Comments Never 0 (1 standard drink = 0.6 oz pur e alcohol) Caffeine: none PHQ-2 Answer Date Recorded Patient Health Questionnaire-2 Score 0 01/24/2024 Comments Unknown Sex and Gender Information Value Date Recorded Sex Assigned at Not on file Legal Sex Female 8:02 PM EDT Gender Identity Not on file Sexual Orientation Not on file documented as of this encounter Plan of Treatment Upcoming Encounters Date Type Department Care Team (Late st Contact Info) Description 02/25/2025 9:00 AM EDT Office Visit [facility] [address] [place] [phone] Estefany Garcia NP [address] [place] [address] 05/29/2025 10:10 AM EST Office Visit [facility] [address] [place] [address] Keena Irby APRN-CHIEF DOG LICENSE INSPECTOR [address] [place] [address] 12/09/2025 9:00 AM EDT Office Visit [facility] [address] [facility] [place] [phone] Luis Rubalcava, DO [address] [facility] [place] [address] [place] [address] documented as of this encounter Procedures Procedure Name Priority Date/Time Associated Diagnosis Comments MM TOMOSYNTHESIS SCREENING BI 01/29/2024 11:13 AM EDT documented in this encounter Results * MM TOMOSYNTHESIS SCREENING BI (01/29/2024 11:13 AM EDT) Anatomical Region Laterality Modality Other 01/29/2024 11:1 3 AM EDT Narrative 01/29/2024 11:14 AM EDT The [address] [address] Mammography Report Signed Patient: CRISTOFER HEATH MR#: [id number] : 1960 Acct:[id number] Age/Sex: 63 / F ADM Date: 01/29/24 Loc: MAMMO Attending Dr: Luis Rubalcava D.O. Ordering Physician: Luis Rubalcava D.O. Results: Date of Service: 01/29/24 Follow Up: Procedure(s): MM tomosynthesis screening BI Accession Number(s): [id number] cc: Shaikh Ry Hahn; Luis Rubalcava D.O. Patient Name: CRISTOFER HEATH MR#: [id number] : 1960 Exam Date: 01/29/2024 Ordering Doctor: DR LUIS RUBALCAVA . RADIOLOGY REPORT PROCEDURE: MM TOMOSYNTHESIS SCREENING BI COMPARISON: MM TOMOSYNTHESIS SCREENING BI, 01/25/2023. MM DIAGNOSTIC MAMMO BI, 02/15/2023. INDICATIONS: Screening Calculator Name NCI Breast Cancer Risk Assessment Tool 5 Year Breast Cancer Risk 1.50% Lifetime Breast Cancer Risk 7.00% Personal Breast Cancer No Personal Ovarian Cancer No Treatments None Family Cancers Mother with bladder cancer at age 72. LOCATION: [facility] BREAST COMPOSITION: There are scattered areas of fibroglandular density. FINDINGS: DIAGNOSTIC CATEGORY 2--BENIGN FINDING. NO CHANGE FROM COMPARISON. Scattered benign-appearing calcifications are present. Scattered benign-appearing lymph nodes are present. RIGHT BREAST: No significant suspicious finding. LEFT BREAST: No significant suspicious finding. RECOMMENDATIONS: ROUTINE MAMMOGRAM AND CLINICAL EVALUATION IN 12 MONTHS. Active recommendations from prior exams: ROUTINE MAMMOGRAM AND CLINICAL EVALUATION IN [#MONTHS] MONTHS. Due on 02/16/2024. PLEASE NOTE: A NORMAL MAMMOGRAM DOES NOT EXCLUDE THE POSSIBILITY OF BREAST CANCER. A CLINICALLY SUSPICIOUS PALPABLE LUMP SHOULD BE BIOPSIED. Dictated by: Mohsen Stevens MD on 01/29/2024 at 11:10 Approved by: Mohsen Stevens MD on 01/29/2024 at 11:13 Dictated By: Mohsen Stevens M.D. Signed By: 01/29/24 1114 DD/ 1113 TD/TT: Development Specialist: Procedure Note Radiology, Radiologist, - 01/29/2024 [facility] [place] [id number] Mammography Report Signed Patient: CRISTOFER HEATH LMR#: [id number] : 1Acct:[id number] Age/Sex: 63 / FADM Date: 01/29/24 Loc: MAMMO Attending Dr: Luis Rubalcava D.O. Ordering Physician: Luis Rubalcava D.O.Results: Date of Service: 01/29/24Follow Up: Procedure(s): MM tomosynthesis screening BI Accession Number(s): [id number] cc: Shaikh Ry Hahn; Luis Rubalcava D.O. Patient Name: CRISTOFER HEATH MR#: [id number] : 1960 Exam Date: 01/29/2024 Ordering Doctor: DR LUIS RUBALCAVA . RADIOLOGY REPORT PROCEDURE: MM TOMOSYNTHESIS SCREENING BI COMPARISON: MM TOMOSYNTHESIS SCREENING BI, 01/25/2023. MM DIAGNOSTICMAMMO BI, 02/15/2023. INDICATIONS: Screening Calculator Name NCI Breast Cancer Risk Assessment Tool 5 Year Breast Cancer Risk 1.50% Lifetime Breast Cancer Risk 7.00% Personal Breast Cancer No Personal Ovarian Cancer No Treatments None Family Cancers Mother with bladder cancer at age 72. LOCATION: [facility] BREAST COMPOSITION: There are scattered areas of fibroglandulardensity. FINDINGS: DIAGNOSTIC CATEGORY 2--BENIGN FINDING. NO CHANGE FROM COMPARISON.Scattered benign-appearing calcifications are present. Scattered benign-appearinglymph nodes are present. RIGHT BREAST: No significant suspicious finding. LEFT BREAST: No significant suspicious finding. RECOMMENDATIONS: ROUTINE MAMMOGRAM AND CLINICAL EVALUATION IN 12 MONTHS. Active recommendations from prior exams: ROUTINE MAMMOGRAM AND CLINICAL EVALUATION IN [#MONTHS] MONTHS. Due on 02/16/2024. PLEASE NOTE: A NORMAL MAMMOGRAM DOES NOT EXCLUDE THE POSSIBILITY OFBREAST CANCER. A CLINICALLY SUSPICIOUS PALPABLE LUMP SHOULD BE BIOPSIED. Dictated by: Mohsen Stevens MD on 01/29/2024 at 11:10 Approved by: Mohsen Stevens MD on 01/29/2024 at 11:13 Dictated By: Mohsen Stevens M.D. Signed By:01/29/24 1114 DD/ 1113 TD/TT: Development Specialist: Luis Rubalcava DO [facility] Final Result documented in this encounter Visit Diagnoses Not on filedocumented in this encounter Care Teams Regulatory Services Consultant Relationship Specialty Start Date End Date Bahman Mcginnis MD [address] [place] [phone] PCP - General Family Medicine 01/24/24 Rema Tong NP [address] [place] [address] Nurse Practitioner Family Medicine 01/24/24 documented as of this encounter
--- OUTSIDE RECORDS SUMMARY | 2024-12-03 12:40 | XMS_ITS | Encounter Summary ---
Author Organization [facility] Address [address] [place] [address] Care Team Providers Care Medical Doctor Nuclear Medicine Name Role Phone Bahman Mcginnis MD Primary Care Provider [phone] Rema Tong MUD JACK OPERATOR Unavailable Encounter Details Date Type Department Care Team (Late Contact Info) Description 11/21/2024 Orders Only [facility] [address] [place] [address] Rober Aguilar, DO [address], [place] [id number] Social History Tobacco Use Types Packs/Day Years [...] Upcoming Encounters Date Type Department Care Team ([facility] Contact Info) Description 02/25/2025 9:00 AM EDT Office Visit [facility] [address] [place] [address] Estefany Garcia NP [address] [place] [address] 05/29/2025 10:10 AM EST Office Visit [facility] [address] [place] [address] Keena Irby APRN-TELEPHONE COLLECTOR [address] [place] [address] 12/09/2025 9:00 AM EDT Office Visit [facility] [address] [facility] [place] [phone] Alexis Rubalcava, DO [address] [facility] [place], [place] [phone] documented as of this encounter Procedures Procedure Name Priority Date/Time Associated Diagnosis Comments CT LUNG SCREENING LOW DOSE Routine 11/21/2024 9:16 AM EDT documented in this encounter Results * CT lung screening low dose (11/21/2024 9:16 AM EDT) Anatomical Region Laterality Modality Lung Computed Tomogra phy Rober Aguilar DO IM CT PROCEDURES Final Result documented in this encounter Visit Diagnoses Not on filedocumented in this encounter Care Teams Medical Doctor Nuclear Medicine Relationship Specialty Start Date End Date Bahman Mcginnis MD [address] [place] [address] PCP - General Family Medicine 01/24/24 Rema Tong NP [address] [place] [place] [address] Nurse Practitioner Family Medicine 01/24/24 documented as of this encounter
--- OUTSIDE RECORDS SUMMARY | 2024-12-03 12:40 | XMS_ITS | Clinical Summary ---
Author Organization [facility] Address [address] [place] [address] Care Team Providers Care Edge Plugger Name Role Phone Raleigh Bryant DO Primary Care Provider Unavail able Allergies Active Allergy Reactions Criticality Noted Date Comments Moxifloxacin Hcl In Nacl 04/22/2011 Bactrim 04/22/2011 Bee Venom 10/13/2011 Cephalosporins 04/19/2012 cephalexin Codeine 10/13/2011 nausea Medications paroxetine (PAXIL) 20 MG tablet Take 20 mg by mouth every morning. Active Naproxen Sodium (ALEVE) 220 MG CAPS Take 3 capsules by mouth daily. Active traZODone (DESYREL) 100 MG tablet Take 3 po qhs 90 tablet 3 07/19/2012 Active traZODone (DESYREL) 100 MG tablet TAKE THREE TABLETS BY MOUTH EVERY DAY AT BEDTIME 90 tablet 0 01/21/2013 Active QUEtiapine (SEROQUEL) 50 MG tablet TAKE ONE TABLET BY MOUTH TWICE DAILY 60 tablet 0 01/21/2013 Active Active Problems Problem Noted Date Diagnosed Date Hypersomnia with sleep apnea Family History Medical History Relation Name Comments Diabetes Daughter Diabetes Father Other Father anti alpha trip sin disease Relation Name Status Comments Daughter Father Mother Alive Social History Tobacco Use Types Packs/Day Years Used Date Smoking Tobacco: Every Day Cigarettes 1.5 30 Smokeless Tobacco: Never Tobacco Cessation:Ready to Q uit: Yes Comments:going to start the patch Alcohol Use Standard Drinks/Week Comments Yes 0 (1 standard drink = 0.6 oz pur e alcohol) but rarely Comments Unknown Sex and Gender Information Value Date Recorded Sex Assigned at Not on file Legal Sex Female 11:42 AM EST Gender Identity Not on file Sexual Orientation Not on file Last Filed Vital Signs Vital Sign Reading Time Taken Comments Blood Pressure 128/82 07/19/2012 1:04 PM EST Pulse 100 07/19/2012 1:04 PM EST Temperature - - Respiratory Rate - - Oxygen Saturation - - Inhaled Oxygen Concentration - - Weight 97.5 kg (214 lb 14.4 oz) 07/19/2012 1:04 PM EST Height 162.6 cm (5' 4 ) 07/19/2012 1:04 PM EST Body Mass Index 36.89 07/19/2012 1:04 PM EST Plan of Treatment Not on file Care Teams Edge Plugger Relationship Specialty Start Date End Date Raleigh Bryant DO PCP - General 04/12/11
--- OUTSIDE RECORDS SUMMARY | 2024-12-03 12:40 | XMS_ITS | Encounter Summary ---
Author Organization [facility] tem Address [id number] [address] [place] [address] Care Team Providers Care Buffer Inflated Pad Name Role Phone Estefany Garcia APRN-LIQUEFIED NATURAL GAS OPERATOR Primary Care Provider Reason for Visit * Reason Comments Med Refill Encounter Details Date Type Department Care Team (Late st Contact Info) Description 04/25/2024 Refill [facility] [address] [place] [phone] Candido Scott PA [address] [facility] [address] [place], [place] [phone] Social History Tobacco Use Types Packs/Day Years Used Date Smoking Tobacco: Former Cigarettes 1 41.2 0 06/12/1982 - 09/2023 Smokeless Tobacco: Never Alcohol Use Standard Drinks/Week Comments Not Currently 0 (1 standard drink = 0.6 oz pur e alcohol) AUDIT-C Answer Date Recorded Frequency of Alcohol Consumption Never 03/19/2018 Average Number of Drinks Not on file 018 Frequency of Binge Drinking Not on file 01/2018 Childcare Answer Date Recorded Childcare Unknown 11/15/2018 Employment Answer Date Recorded Employment Unknown 11/15/2018 Hunger Screening Answer Date Recorded Within the past 12 months we worried whether our food would run out before we got money to buy more. Never True 04/09/2024 Within the past 12 months th e food we bought just didn't last and we didn't have money to get more. Never True 04/09/2024 Purpose - Life Answer Date Recorded Purpose and direction in life Unknown Comments No Sex and Gender Information Value Date Recorded Sex Assigned at Not on file Legal Sex Female 11:24 AM EDT Gender Identity Not on file Sexual Orientation Not on file documented as of this encounter Miscellaneous Notes * Telephone Encounter - Roseline Meza RN - 04/25/2024 10:11 AM EST Our clinic does not accept pharmacy refill requests. The patient must contact our office. [phone] documented in this encounter Plan of Treatment Upcoming Encounters Date Type Department Care Team (Late st Contact Info) Description 12/06/2024 10:30 AM EDT Office Visit [facility] [address] [place] [address] Michell Cowan, CORROSION TECHNICIAN-LIQUEFIED NATURAL GAS OPERATOR [address] [place] [address] documented as of this encounter Visit Diagnoses Not on filedocumented in this encounter Care Teams Buffer Inflated Pad Relationship Specialty Start Date End Date Estefany Garcia, CORROSION TECHNICIAN-LIQUEFIED NATURAL GAS OPERATOR [address] [place] [address] PCP - General Nurse Practitioner 11/25/24 documented as of this encounter
--- OUTSIDE RECORDS SUMMARY | 2024-12-03 12:40 | XMS_ITS | Encounter Summary ---
Author Organization [facility] Address [address] [place] [address] Care Team Providers Care Manager Lvn Name Role Phone Bahman Mcginnis MD Primary Care Provider [phone] Rema Tong EMPLOYMENT ASSISTANT Unavailable [phone] Encounter Details Date Type Department Care Team (Late st Contact Info) Description 11/26/2024 Bamboo flowsheet [facility] [address] [facility] [address] [place] [address] Keena Irby, IT ENGINEER-GRIP [address] [facility] [address] [place] [address] Social History Tobacco Use Types Packs/Day Years [...] 02/25/2025 9:00 AM EDT Office Visit [facility] [address] [place] [place] [address] Estefany Garcia NP [address] [address] 05/29/2025 10:10 AM EST Office Visit [facility] [address] [place] [address] Keena Irby APRN-GRIP [address] [place], [place] [phone] 12/09/2025 9:00 AM EDT Office Visit [facility] [address] [place] [address] Alexis Rubalcava, DO [address] [place], [place] [phone] documented as of this encounter Visit Diagnoses Not on filedocumented in this encounter Care Teams Manager Lvn Relationship Specialty Start Date End Date Bahman Mcginnis MD [address] [place] [address] PCP - General Family Medicine 01/24/24 Rema Tong NP [address] [place] [address] Nurse Practitioner Family Medicine 01/24/24 documented as of this encounter
--- OUTSIDE RECORDS SUMMARY | 2024-12-03 12:40 | XMS_ITS | Encounter Summary ---
Author Organization [facility] Address [address] [place] [address] Care Team Providers Care Dressing Room Attendant Name Role Phone Bahman Mcginnis MD Primary Care Provider [phone] Rema Tong NP Unavailable [phone] Encounter Details Date Type Department Care Team (Late Contact Info) Description 11/21/2024 Bamboo flowsheet [facility] [address] [place] [address] Estefany Garcia NP [address] [facility] [place] [address] Social History Tobacco Use Types Packs/Day Years [...] Encounters Date Type Department Care Team (Late Contact Info) Description 02/25/2025 9:00 AM EDT Office Visit [facility] [address] [place] [address] Estefany Garcia NP [address] [place] [address] 05/29/2025 10:10 AM EST Office Visit [facility] [address] [place] [address] Mahamed Keena SILVIA Dominguez-SANITARY CHEMIST [address] [place], [place] [phone] 12/09/2025 9:00 AM EDT Office Visit [facility] [address] [place] [phone] Alexis Rubalcava DO [address] [place], [place] [address] documented as of this encounter Visit Diagnoses Not on filedocumented in this encounter Care Teams Dressing Room Attendant Relationship Specialty Start Date End Date Bahman Mcginnis MD [address], [place] [phone] PCP - General Family Medicine 01/24/24 Rema Tong NP [address] [place] [address] Nurse Practitioner Family Medicine 01/24/24 documented as of this encounter
--- OUTSIDE RECORDS SUMMARY | 2024-12-03 12:40 | XMS_ITS | Encounter Summary ---
Author Organization [facility] Address [address] [place] [address] Care Team Providers Care Gore Maker Name Role Phone Shaikh JAMILAH Hahn Primary Care Provider [phone] Bahman Mcginnis MD Primary Care Provider [phone] Rema Tong SUPERINTENDENT MAINTENANCE Unavailable [phone] Encounter Details Date Type Department Care Team (Late st Contact Info) Description 12/07/2023 Orders Only [facility] [address] [place] [phone] Matilde Peña LPN [address] [place] [address] Social History Tobacco Use Types Packs/Day Years Used Date Smoking Tobacco: Every Day Cigarettes 1 27.5 Started: 1997 Alcohol Use Standard Drinks/Week Comments Never 0 (1 standard drink = 0.6 oz pur e alcohol) Caffeine: none PHQ-2 Answer Date Recorded Patient Health Questionnaire-2 Score 0 10/04/2023 Comments Unknown Sex and Gender Information Value Date Recorded Sex Assigned at Not on file Legal Sex Female 8:02 PM EDT Gender Identity Not on file Sexual Orientation Not on file documented as of this encounter Plan of Treatment Upcoming Encounters Date Type Department Care Team (Late st Contact Info) Description 02/25/2025 9:00 AM EDT Office Visit [facility] [address] [phone] Estefany Garcia NP [address] [place] [address] 05/29/2025 10:10 AM EST Office Visit [facility] [address] [place] [address] Keena IrbySILVIA-CLINICAL ADMINISTRATIVE COORDINATOR [address] [place], [place] [phone] 12/09/2025 9:00 AM EDT Office Visit [facility] [address] [facility] [place] [phone] Alexis Rubalcava DO [address] [facility] [address] [place], [place] [address] documented as of this encounter Procedures Procedure Name Priority Date/Time Associated Diagnosis Comments PAP SMEAR Routine 11/30/2023 12:00 AM EDT documented in this encounter Results * Pap Smear (11/30/2023 12:00 AM EDT) Swab Cervical swab / Unknown Khadar Nurse [facility] CYTOLOGY ORDERABLES Final Result EXTERNAL LAB documented in this encounter Visit Diagnoses Not on filedocumented in this encounter Care Teams Gore Maker Relationship Specialty Start Date End Date Shaikh Hahn MD [address] [place] [address] PCP - General Internal Medicine 10/04/23 01/23/24 Bahman Mcginnis MD [address] [place] [address] PCP - General Family Medicine 01/24/24 Rema Tong NP [address] [place] [address] Nurse Practitioner Family Medicine 01/24/24 documented as of this encounter
--- OUTSIDE RECORDS SUMMARY | 2024-12-03 12:40 | XMS_ITS | Clinical Summary ---
Author Organization [employer] [facility] tem Address [id number] [address] [place] [address] Care Team Providers Care Tobacco Conditioner Name Role Phone Estefany Garcia APRN-COTTON BALL MACHINE TENDER Primary Care Provider Allergies Active Allergy Reactions Criticality Noted Date Comments Moxifloxacin Nausea,Vomiting High 05/18/2016 Sulfamethoxazole-Trimethoprim Rash Low 2015 Bee Venom Protein (Honey Bee) Anaphylaxis High 10/12 Cephalosporins Rash Low 05/18/2016 Codeine Nausea,Vomiting High 05/18/2016 Tramadol Nausea,Vomiting High 05/18/2016 Medications alendronate (FOSAMAX) 35 mg tablet Take 10 mg by mouth once a week. 03/26/2016 Active atorvastatin (LIPITOR) 20 mg tablet Take 1 tablet (20 mg total) by mouth nightly. 2016 Active EPIPEN 2-ELLIOT 0.3 mg/0.3 mL auto-injector 02/19/2016 Activ e melatonin (CIRCADIN) 5 mg tablet Take 2 tablets (10 mg total) by mouth nightly. Active acetaminophen (TYLENOL) 500 mg tablet Take 2 tablets (1,000 mg total) by mouth every 6 (six) hours as needed for pain. Active traZODone (DESYREL) 50 mg tablet Take 1 tablet (50 mg total) by mouth nightly. Active FLUoxetine (PROzac) 20 mg capsule Take 1 capsule (20 mg total) by mouth nightly. 07/12/2021 Active ergocalciferol (DRISDOL) 1,250 mcg (50,000 unit) capsuleIndicati ons:Vitamin D deficiency Take 1 capsule (50,000 Units total) by mouth once a week. For 6 weeks 6 capsule 08/23/2021 Active cholecalciferol (VITAMIN D3) 1,000 units tabletIndicatio ns:Vitamin D deficiency TAKE 1 TABLET BY MOUTH TWICE DAILY (MORNING AND EVENING) WITH MEALS 60 tablet 01/28/2022 Active fexofenadine (KRISTIAN) 180 mg tablet Take 1 tablet (180 mg total) by mouth in the morning. 08/24/2022 Active calcium carbonate (OS-JULIO CÉSAR) 500 mg elemental (1,250 mg) tablet Take 2.5 tablets (1,250 mg total) by mouth in the morning. Active magnesium oxide (MAGOX) 400 mg tablet Take 1 tablet (400 mg total) by mouth in the morning. Active ascorbic acid, vitamin C, (VITAMIN C) 1000 mg tablet Take 1 tablet (1,000 mg total) by mouth in the morning. Active albuterol (PROVENTIL HFA;VENTOLIN HFA) 90 mcg/actuation inhaler Inhale 1 puff every 4 (four) hours as needed. 10/04/2023 Active phentermine (ADIPEX-P) 37.5 mg tablet Take 1 tablet (37.5 mg total) by mouth every morning before breakfast. Active traMADoL (ULTRAM) 50 mg tablet Take 1 tablet (50 mg total) by mouth every 8 (eight) hours as needed. 07/08/2024 Active methocarbamoL (ROBAXIN) 500 mg tablet Take 1 tablet (500 mg total) by mouth 3 (three) times a day. 30 tablet 1 07/09/2024 Active diclofenac (CATAFLAM) 50 mg tablet Take 1 tablet (50 mg total) by mouth in the morning and 1 tablet (50 mg total) before bedtime. 180 tablet 09/26/2024 Active Active Problems Problem Noted Date Diagnosed Date Primary osteoarthritis of left hip 05/23/2024 Disorder of sacrum 12/15/2022 Spinal stenosis of lumbar re gion with neurogenic claudication 09/08/2022 Overview (09/08/2022): Added automatically from request for surgery [id number] S/P total knee replacement, right 10/27/2021 Primary osteoarthritis of right knee 07/19/2021 Overview (07/19/2021): Added automatically from request for surgery [id number] Right flank pain 03/19/2018 Osteoporosis 03/19/2018 Hematuria 03/19/2018 Sleep apnea 03/19/2018 Overview (03/19/2018): CPAP HLD (hyperlipidemia) 03/19/2018 Encounters Date Type Department Care Team Description 09/26/2024 10:45 AM EDT Office Visit [facility] [address] [place] [address] Candido Scott PA Lumbosacral spondylosis without myelopathy (Primary Dx) 09/26/2024 Travel 09/06/2024 8:29 AM EDT - 09/06/2024 8:36 AM EDT Surgery [facility] - Pain Procedures [address] [place] [address] Roly Dickens MD INJECTION BLOCK SACROILIAC JOINT [82174 (CPT )] 09/06/2024 7:40 AM EDT - 09/06/2024 11:59 PM EDT Hospital Encounter [facility] - Pain Procedures [address] [place] [address] Roly Dickens MD Discharge Disposition: Home 09/06/2024 7:21 AM EDT - 09/06/2024 7:39 AM EDT Hospital Encounter [facility] - Radiology [address] [place] [address] Roly Dickens MD Disorder of sacrum Discharge Disposition: Home from Last 3 Months Family History Medical History Relation Name Comments Diabetes Brother Leukemia Brother Diabetes Daughter 1 Obesity Daughter 1 Diabetes Daughter 2 Multiple sclerosis Daughter 2 Liver disease Father alpha antitryp sin Cancer Mother bladder Heart attack Paternal Grandfather Diabetes Sister Anesthesia problems Neg Hx Breast cancer Neg Hx Relation Name Status Comments Brother Alive Daughter 1 Alive Daughter 2 Alive Father Mother Paternal Grandfather Sister Alive Social History Tobacco Use Types Packs/Day Years Used Date Smoking Tobacco: Former Cigarettes 1 41.2 0 06/12/1982 - 09/2023 Smokeless Tobacco: Never Tobacco Cessation:Counseling Given: Not Answered Alcohol Use Standard Drinks/Week Comments Not Currently [...] got money to buy more. Never True 09/26/2024 Within the past 12 months th e food we bought just didn't last and we didn't have money to get more. Never True 09/26/2024 Purpose - Life Answer Date Recorded Purpose and direction in life Unknown Comments No Sex and Gender Information Value Date Recorded Sex Assigned at Not on file Legal Sex Female 11:24 AM EDT Gender Identity Not on file Sexual Orientation Not on file Last Filed Vital Signs Vital Sign Reading Time Taken Comments Blood Pressure 122/77 09/26/2024 10:46 AM EDT Pulse 72 09/26/2024 10:46 AM EDT Temperature 36.3 C (97.3 F) 09/06/2024 7:56 AM EDT Respiratory Rate 18 09/26/2024 10:46 AM EDT Oxygen Saturation 95% 09/26/2024 10:46 AM EDT Inhaled Oxygen Concentration - - Weight 89.4 kg (197 lb) 09/26/2024 10:46 AM EDT Height 160 cm (5' 3 ) 09/26/2024 10:46 AM EDT Body Mass Index 34.9 09/26/2024 10:46 AM EDT Plan of Treatment Upcoming Encounters Date Type Department Care Team (Late st Contact Info) Description 12/06/2024 10:30 AM EDT Office Visit [facility] [address] [place] [phone] Michell Cowan, MECHANICAL METER TESTER-COTTON BALL MACHINE TENDER [address] [place] [address] Health Maintenance Due Date Last Done Comments Depression Screening 1973 Adult BMI Follow Up Plan 1979 COVID-19 Vaccine (4 - 2023-2 5 season) 2024 05/11/2021, 09/05/2020, 08/15/2020 Influenza Vaccine 02/10/2025 06/07/2024, , 04/16/2020, Additional history exists Adult BMI Screening 09/26/2025 09/26/2024 Tobacco Screening 09/26/2025 09/26/2024 DTaP,Tdap and Td Vaccines (3 - Td or Tdap) 06/07/2034 06/07/2024, 12/05/2012 Zoster (Shingles) Vaccine Completed 07/17/2023, Pap Smear Discontinued 11/30/2023 Medical Devices Implanted Type Area Portfolio Management Marketing Device Identifier Shelf Expiration Date Model / Serial / Lot Cement Bn Bio 40gm Rpl [id number] - [id number] Implanted:Qt y: 1 on 09/02/[address] MD at [facility] Cement Right: Knee [employer] 12/10/2023 [id number] / / [id number] Cement Bn Bio 40gm Rpl [id number] - [id number] Implanted:Qt y: 1 on 09/02/[address]vester MD at [facility] Cement Right: Knee [employer] 11/10/2023 [id number] / / [id number] Component Ptlr 32mm Persona Alply Kn Strl Lf - [id number] Implanted:Qt y: 1 on 09/02/[address]vester MD at [facility] Orthopedic Implant Right: Knee [employer] 01/20/2029 [id number] / / [id number] Component Fem 8 Cristopher Kn Rt Post Stab Cmnt Persona Cocr Strl - [id number] Implanted:Qt y: 1 on 09/02/[address]vester MD at [facility] Orthopedic Implant Right: Knee [employer] 11/08/2030 [id number] / / [id number] Insert Artc 6-9 Cd 10mm Kn Rt Post Stab Pe Persona - [id number] Implanted:Qt y: 1 on 09/02/[address]vester MD at [facility] Orthopedic Implant Right: Knee [employer] 03/29/2028 [id number] / / [id number] Baseplate Tib 5d D Kn Rt Cmnt Stm Persona Tiv Strl - [id number] Implanted:Qt y: 1 on 09/02/[address]vester MD at [facility] Plate Right: Knee [employer] 11/02/2030 [id number] / / [id number] Procedures Procedure Name Priority Date/Time Associated Diagnosis Comments FL FLUOROSCOPY UP TO 1 HOUR Routine 09/06/2024 8:43 AM EDT Disorder of sacrum DC INJECTION,SACROILIAC JOINT 09/06/2024 8:26 AM EDT Disorder of sacrum from Last 3 Months Results * Fluoroscopy less than one hour (09/06/2024 8:43 AM EDT) Narrative SYSTEMGENERATED, DOCUMENTATION - 09/06/2024 8:43 AM EDT No Reading Required. This procedure does not require a formal dictation. Non-Radiologist provider performed procedures can be reviewed under Post-Op, Procedure or Progress notes. For full report details, please reach out to your physician. Effective 10/27/2020 this image will be visible to you in [email or web address]. Roly Dickens MD IMG FLUOROSCOPY ORDERABLES Fi nal Result from Last 3 Months Insurance [facility] Care Teams Tobacco Conditioner Relationship Specialty Start Date End Date Estefany Garcia, MECHANICAL METER TESTER-COTTON BALL MACHINE TENDER [address] [place] [address] PCP - General Nurse Practitioner 11/25/24
--- OUTSIDE RECORDS SUMMARY | 2024-12-03 12:40 | XMS_ITS | Encounter Summary ---
Author Organization [facility] Address [address] [place] [address] Care Team Providers Care Child Care Lead Teacher Name Role Phone Bahman Mcginnis MD Primary Care Provider [phone] Rema Tong CATHOLIC PRIEST Unavailable [phone] Encounter Details Date Type Department Care Team (Late st Contact Info) Description 08/21/2024 Orders Only [facility] [address] [place] [place] [address] Alexis Rubalcava, [address] [facility] [place] [address] Social History Tobacco Use Types Packs/Day Years [...] as of this encounter Miscellaneous Notes * Result Encounter Note - Sully Brown LPN - 08/21/2024 10:35 AM EDT Scan is from 2022. documented in this encounter Plan of Treatment Upcoming Encounters Date Type Department Care Team (Late st Contact Info) Description 02/25/2025 9:00 AM EDT Office Visit [facility] [address] [place] [phone] Estefany Garcia NP [address] [place] [phone] 05/29/2025 10:10 AM EST Office Visit [facility] [address] [place] [phone] Mahamed Keena A, HOT TAMALE WORKER-KILN FIREMAN [address] [place] [address] 12/09/2025 9:00 AM EDT Office Visit [facility] [address] [facility] [place] [address] Alexis Rubalcava DO [address] [facility] [address] [place], [place] [id number] documented as of this encounter Procedures Procedure Name Priority Date/Time Associated Diagnosis Comments XR DEXA AXIAL SKELETON* Routine 08/21/2024 10:35 AM EDT documented in this encounter Results * XR DEXA AXIAL SKELETON* (08/21/2024 10:35 AM EDT) Anatomical Region Laterality Modality Radiographic Ellyn ging Alexis Rubalcava DO IMG XR PROCEDURES Final Result documented in this encounter Visit Diagnoses Not on filedocumented in this encounter Care Teams Child Care Lead Teacher Relationship Specialty Start Date End Date Bahman Mcginnis MD [address] [place] [phone] PCP - General Family Medicine 01/24/24 Rema Tong NP [address] [place] [address] Nurse Practitioner Family Medicine 01/24/24 documented as of this encounter
--- OUTSIDE RECORDS SUMMARY | 2024-12-03 12:40 | XMS_ITS | Encounter Summary ---
Author Organization [facility] [employer] Address [id number] [address] [place] [address] Care Team Providers Care Senior Manufacturing Test Engineer Name Role Phone Estefany Garcia APRN-COKE PRODUCTION HEATER Primary Care Provider Encounter Details Date Type Department Care Team (Late st Contact Info) Description 06/21/2021 Telephone [facility] [address] [place] [phone] Tadeo Flowers PA [address] [facility] [place] [address] Social History Tobacco Use Types Packs/Day Years Used Date Smoking Tobacco: Every Day Cigarettes Smokeless Tobacco: Never Alcohol Use Standard Drinks/Week Comments No 0 (1 standard drink = 0.6 oz pur e alcohol) AUDIT-C Answer Date Recorded Frequency of Alcohol Consumption Never 03/19/2018 Average Number of Drinks Not on file 018 Frequency of Binge Drinking Not on file 01/2018 Childcare Answer Date Recorded Childcare Unknown 11/15/2018 Employment Answer Date Recorded Employment Unknown 11/15/2018 Purpose - Life Answer Date Recorded Purpose and direction in life Unknown Comments No Sex and Gender Information Value Date Recorded Sex Assigned at Not on file Legal Sex Female 11:24 AM EDT Gender Identity Not on file Sexual Orientation Not on file COVID-19 Exposure Response Date Recorded In the last month, have you been in contact with someone who was confirmed or suspected to have Coronavirus / COVID-19? No / Unsure 06/21/2021 7:45 AM EST documented as of this encounter Miscellaneous Notes * Telephone Encounter - Rd Sylvester MD - 06/21/2021 11:56 AM EST Her MRI does show a significant gluteus medius tear. If she continues to have problems after the total knee, I would refer her to Devin Barnett documented in this encounter Plan of Treatment Upcoming Encounters Date Type Department Care Team (Late st Contact Info) Description 12/06/2024 10:30 AM EDT Office Visit [facility] [address] [place] [phone] Michell Cowan APRN-COKE PRODUCTION HEATER [address] [place], [place] [phone] documented as of this encounter Visit Diagnoses Not on filedocumented in this encounter Care Teams Senior Manufacturing Test Engineer Relationship Specialty Start Date End Date Estefany Garcia, BATTERY CHARGER CONVEYOR LINE-COKE PRODUCTION HEATER [address] [place] [address] PCP - General Nurse Practitioner 11/25/24 documented as of this encounter
--- OUTSIDE RECORDS SUMMARY | 2024-12-03 12:40 | XMS_ITS | Encounter Summary ---
Author Organization [facility] [employer] Address [id number] [address] [place] [address] Care Team Providers Care Cash Reconciliation Specialist Name Role Phone Estefany Garcia APRN-SERVICE ORDER TAKER Primary Care Provider Encounter Details Date Type Department Care Team (Late st Contact Info) Description 08/19/2021 Orders Only [facility] [address] [facility] [address] [place] [phone] Rd Sylvester MD [address] [facility] [place] [address] Osteopenia, unspecified location Social History Tobacco Use Types Packs/Day Years Used Date Smoking Tobacco: Every Day Cigarettes 1 42.5 Started: 06/12/1982 Smokeless Tobacco: Never Alcohol Use Standard Drinks/Week Comments Yes 0 (1 standard drink = 0.6 oz pur e alcohol) rarely AUDIT-C Answer Date Recorded Frequency of Alcohol [...] Exposure Response Date Recorded In the last 10 days, have yo u been in contact with someone who was confirmed or suspected to have Coronavirus/COVID-19? No / Unsure 08/19/2021 2:20 PM EST documented as of this encounter Plan of Treatment Upcoming Encounters Date Type Department Care Team (Late st Contact Info) Description 12/06/2024 10:30 AM EDT Office Visit [facility] [address] [place] [address] Michell Cowan APRN-SERVICE ORDER TAKER [address] [place], [place] [phone] documented as of this encounter Visit Diagnoses Diagnosis Osteopenia, unspecified location documented in this encounter Care Teams Cash Reconciliation Specialist Relationship Specialty Start Date End Date Estefany Garcia, CONSTRUCTION TRADES CONTRACTOR-SERVICE ORDER TAKER [address] [place] [address] PCP - General Nurse Practitioner 11/25/24 documented as of this encounter
--- OUTSIDE RECORDS SUMMARY | 2024-12-03 12:40 | XMS_ITS | Encounter Summary ---
Author Organization [facility] Address [address] [place] [address] Care Team Providers Care Collection Systems Worker Name Role Phone Shaikh JAMILAH Hahn Primary Care Provider [phone] Shaikh JAMILAH Hahn Primary Care Provider [phone] Bahman Mcginnis MD Primary Care Provider [phone] Rema Tong TRIM MOUNTER Unavailable [phone] Reason for Visit * Reason Comments Med Refill Encounter Details Date Type Department Care Team (Late st Contact Info) Description 06/13[facility] [address] [place] [address] Shaikh Hahn MD [address] [place] [address] [place] [phone] Osteopenia, unspecified location (Primary Dx) Social History Tobacco Use Types Packs/Day Years Used Date Smoking Tobacco: Every Day Cigarettes 1 27.5 Started: 1997 Alcohol Use Standard Drinks/Week Comments Never 0 (1 standard drink = 0.6 oz pur e alcohol) Caffeine: none Comments Unknown Sex and Gender Information Value Date Recorded Sex Assigned at Not on file Legal Sex Female 8:02 PM EDT Gender Identity Not on file Sexual Orientation Not on file documented as of this encounter Miscellaneous Notes * Telephone Encounter - Shaikh Jovani MD - 06/13/2023 12:34 PM EST Approving, but needs appt for additional refills. documented in this encounter Plan of Treatment Upcoming Encounters Date Type Department Care Team (Late st Contact Info) Description 02/25/2025 9:00 AM EDT Office Visit [facility] [address] [place] [address] Estefany Garcia NP [address] [place] [phone] 05/29/2025 10:10 AM EST Office Visit [facility] [address] [place] [phone] Keena Irby APRN-COMPO CASTER [address] [place], [place] [phone] 12/09/2025 9:00 AM EDT Office Visit [facility] [address] [place] [phone] Alexis Rubalcava, DO [address] [employer] [address] [place], [place] [phone] documented as of this encounter Visit Diagnoses Diagnosis Osteopenia, unspecified location- Primary documented in this encounter Care Teams Collection Systems Worker Relationship Specialty Start Date End Date Shaikh Hahn MD PCP - General Internal Medicine 11/28/22 10/03/23 Shaikh Hahn MD [address] [place] [phone] PCP - General Internal Medicine 10/04/23 01/23/24 Bahman Mcginnis MD [address] [place] [phone] PCP - General Family Medicine 01/24/24 Rema Tong NP [address] [place] [address] Nurse Practitioner Family Medicine 01/24/24 documented as of this encounter
--- OUTSIDE RECORDS SUMMARY | 2024-12-03 12:40 | XMS_ITS | Patient Health Record ---
Author Organization [facility] [place] Address [address] [place] [address] Care Team Providers Care Supervisor Hanging And Trimming Name Role Phone SINDHU CUMMINS Primary Care Provide Saba Currie Unavailable [phone] Allergies Allergen (clinical drug ingredient) Drug/Non Drug [...] tramadol traMADol hives Drug Allergy Inactiv e Results Component Value Reference Range Notes [id number] FINGERPR ICK CONFIRMATION Reviewed date:08/27/2024 05:11:07 PM Interpretation: Performing Lab: Notes/Report: CT Chest Low Dose for Screen ing* Reviewed date:05/22/2024 07:38:57 AM Interpretation: Performing Lab: Notes/Report: CT lung screening low-dose Reviewed date:05/22/2024 07:16:38 AM Interpretation: Performing Lab: Notes/Report: Source Facility: [place] [address] [place] [address] CT Scan Report Signed Patient: CRISTOFER HEATH MR#: [id number] : 1960 Acct:[id number] Age/Sex: 64 / F ADM Date: 05/21/24 Loc: CT Attending Dr: Saba Stein D.O. Ordering Physician: Saba Stein D.O. Date of Service: 05/21/24 Procedure(s): CT lung screening low-dose Accession Number(s): [id number] cc: Physician,Non-Staff [place] [id number] Patient Name: CRISTOFER HEATH MRN: [id number] date: 1960 Sex: F Assigned Patient Location: CT Current Patient Location: Accession/Order Number: [id number] Exam Date: 05/21/2024 13:50 Report Date: 05/22/2024 06:13 At the request of: SABA STEIN Procedure: CT lung screening low-dose EXAMINATION: CT lung screening low-dose HISTORY: Nicotine Dependence COMPARISON: CT lung screening 01/25/2023 TECHNIQUE: Axial, Coronal, and Sagittal images were created without the administration of IV contrast material. Dose reduction techniques were achieved by using automated exposure control and/or adjustment of mA and/or kV according to patient size and/or use of iterative reconstruction technique. FINDINGS: LUNGS: No visible pulmonary disease. PLEURA: No mass, effusion, or pneumothorax. VASCULATURE: No abnormality. MEGGAN: No mass or pathologic adenopathy. MEDIASTINUM: No mass or pathologic adenopathy. CARDIAC: No enlargement, pericardial thickening, or pericardial effusion. Coronary Artery calcifications: Coronary calcifications are moderate. AORTA: No aneurysm or dissection. CHEST WALL: No mass or axillary adenopathy BONES: No bone lesion or fracture. LIMITED ABDOMEN: No suspicious findings. Limited images of the upper abdomen. OTHER: Negative. CT/CT lung screening low-dose IMPRESSION: 1. Lung-RADS Category 1 Negative. No nodules and definitely benign nodules. Continue annual screening with LDCT in 12 months. Electronically authenticated by: RENE BYERS Date: 05/22/2024 06:13 Dictated By: Rene Byers M.D. Signed By: 05/22/24615 DD/ 2 TD/TT: Checkering Machine Operator: The [address] [address] [address] Scan Report Signed Patient: JOSE HEATH MR#: [id number] : 1960 Acct:[id number] Age/Sex: 64 / F ADM Date: 05/21/24 Loc: CT Attending Dr: Saba Stein D.O. Ordering Physician: Saba Stein D.O. Date of Service: 05/21/24 Procedure(s): CT alpa g screening low-dose Accession Number(s): [id number] cc: Physician,Non-Staff MDe[place]o [place] [id number] Patient Name: CRISTOFER HEATH MRN: [id number] date: 1960 Sex: F Assigned Patient Location: CT Current Patient Location: Accession/Order Numb er: [id number] Exam Date: 13:50 Report Date: 05/22/2024 06:13 At the request of: SABA STEIN Procedure: CT lung s creening low-dose EXAMINATION: CT lung screening low-dose HISTORY: Nicotine Dependence COMPARISON: CT lung screening 01/25/2023 TECHNIQUE: Axial, Co yovana, and Sagittal images were created without the administration of IV contrast material. Dose reduction techniques were achieved by using automated e xposure control and/or adjustment of mA and/or kV according to patient size and/ or use of iterative reconstruction technique. FINDINGS: LUNGS: No visible pu lmonary disease. PLEURA: No mass, eff usion, or pneumothorax. VASCULATURE: No abnormality. MEGGAN: No mass or pat hologic adenopathy. MEDIASTINUM: No mass or pathologic adenopathy. CARDIAC: No enlargem ent, pericardial thickening, or pericardial effusion. Coronary Artery calc ifications: Coronary calcifications are moderate. AORTA: No aneurysm o r dissection. CHEST WALL: No mass or axillary adenopathy BONES: No bone lesio n or fracture. LIMITED ABDOMEN: No suspicious findings. Limited images of the upper abdomen. OTHER: Negative. C T/CT lung screening low-dose IMPRESSION: 1. Lung-RADS Categor y 1 Negative. No nodules and definitely benign nodules. Continue annual scre ening with LDCT in 12 months. Electronically authe nticated by: RENE BYERS Date: 05/22/2024 06:13 Dictated By: Rene Byers M.D. Signed By: 05/22/24615 DD/ 2 TD/TT: Checkering Machine Operator: RT pulmonary function test Reviewed date:09/23/2024 01:25:36 PM Interpretation: Performing Lab: Notes/Report: Source Facility: [place] [address] Respiratory Report Signed Patient: CRISTOFER HEATH MR#: [id number] : 1960 Acct:[id number] Age/Sex: 64 / F ADM Date: Loc: CARD Attending Dr: Saba Stein D.O. Ordering Physician: Saba tSein D.O. Date of Service: 09/23/24 Procedure(s): RT pulmonary function test Accession Number(s): [id number] cc: [facility] Test Date: 2024-09-23 Pat Name: CRISTOFER HEATH Department: Room: - Gender: Female Personnel Consultant: Chi Tran RRT : 1960 Requested By: Saba Stien Order Number: [id number] Reading MD: Saba Stein Interpretive Statements Pulmonary function testing was completed according to ATS criteria. Findings were considered accurate and reproducible. Both pre- and post-bronchodilator values utilized for spirometry. Spirometry (based on pre-bronchodilator values): -FEV1/FVC: Normal @ 75% -FEV1: Normal @ 105% -FVC: Normal @ 108% -NKW24-23%: Normal @ 89% -There is a positive bronchodilator response in ADG84-09%, but diagnostic and clinical significance is unclear. Lung volumes by plethysmography (based on pre-bronchodilator values): -RV: Normal @ 95% -TLC: Normal @ 107% Diffusion capacity: -DLCO: Mild-moderate reduction @ 63% when corrected for Hb 14.5g/dL Impressions: -Technically normal spirometry, though FEV1/FVC ratio is trending towards mild obstruction. No significant bronchodilator response. Normal lung volumes. Mild-moderate diffusion impairment. Overall study suggests possible underlying COPD/emphysema. Clinical correlation required. Electronically Signed On 09-23-2024 12:59:23 EDT by Saba Stein Dictated By: Saba Stein D.O. Signed By: 09/23/24 1259 DD/ 0817 TD/TT: Checkering Machine Operator: [place] [address] Respiratory Report Signed Patient: OJSE HEATH MR#: [id number] : 1960 Acct:[id number] Age/Sex: 64 / F ADM Date: Loc: CARD Attending Dr: Saba Stein D.O. Ordering Physician: Saba Stein D.O. Date of Service: 09/23/24 Procedure(s): RT pul monary function test Accession Number(s): [id number] cc: [facility] Test Date: 2024-09-23 Pat Name: CRISTOFER CONTRERAS Department: Room: - Gender: Female Techn ician: Chi Tran RRT : 1960 Requ ested By: Saba Stein Order Number: [id number] Reading MD: Saba Stein Interpretive Statements Pulmonary function t esting was completed according to ATS criteria. Findings were considered accu rate and reproducible. Both pre- and post-bronchodilator values utilized for spirometry. Spirometry (based on pre-bronchodilator values): -FEV1/FVC: Normal @ 75% -FEV1: Normal @ 105% -FVC: Normal @ 108% -CBO91-77%: Normal @ 89% -There is a positive bronchodilator response in WUI06-24%, but diagnostic and clinical significanc e is unclear. Lung volumes by plet hysmography (based on pre-bronchodilator values): -RV: Normal @ 95% -TLC: Normal @ 107% Diffusion capacity: -DLCO: Mild-moderate reduction @ 63% when corrected for Hb 14.5g/dL Impressions: -Technically normal spirometry, though FEV1/FVC ratio is trending towards mild obstruction. No significant bronchodilator response. Normal lung volumes. Mild-modera te diffusion impairment. Overall study suggests possible underlying COPD/emphysema. Clinical correlation required. Electronically Yanci d On 09-23-2024 12:59:23 EDT by Saba Stein Dictated By: Saba Stein D.O. Signed By: 09/23/24 1259 DD/ 0817 TD/TT: Checkering Machine Operator: Reason For Referral No Information Medications Medication SIG (Take, Route, Frequency, Duration) Notes Start Date End Date Status buPROPion HCl ER (XL) 150 MG Oral for 90 Days Active Calcium 600 MG 1 tablet with meals Orally Twice a day Active Alendronate Sodium 35 MG Oral for 84 Days Active Atorvastatin Calcium 20 MG Oral for 30 Days Active traZODone HCl 50 MG TAKE 1 TABLET BY MOUTH ONCE DAILY Oral for 90 Days Active Albuterol Sulfate HFA 108 (9 0 Base) MCG/ACT Inhalation for 34 Days Active Vitamin D3 10 MCG (400 UNIT) Oral for 30 Days Active Melatonin 10 MG as directed Orally Active FLUoxetine HCl 10 MG TAKE 1 CAPSULE BY MOUTH ONCE DAILY Oral for 90 Days Active hydroCHLOROthiazide 12.5 MG Oral for 90 Days Active Diclofenac Potassium 50 MG Oral for 90 Days Active EPINEPHrine (Anaphylaxis) 30 MG/30ML as directed Injection Active Immunizations Vaccine Route Administration Date Status Comme nts Flu, Flublok (92378) 18 yrs and older, single-dose syringe Unknown 06/07/2024 Administered Flu, Flublok (73768) 18yr+, single-dose (9349-9196) Unknown 03/15/2023 Administered Pneumococcal (Prevnar 20) Unknown 03/15/2023 Administer ed SARS-COV-2 (COVID 19 Pfizer 30mcg/0.3mL) Unknown 05/11/2021 Administered Tdap (Boostrix) Unknown 06/07/2024 Administered ZOSTER (SHINGLES) VACCINE (HZV) Unknown 04/24/2023 Admi nistered ZOSTER (SHINGLES) VACCINE (HZV) Unknown 07/17/2023 Admi nistered Social History Tobacco Use: Social History Observation Description Date Details (start date - stop date) Current some da y smoker NA - NA Tobacco Control (Standard) Question Answer Notes Tobacco use: Current some day smoker Additional Findings: Tobacco user Heavy cigarett e smoker (20-39 cigs/day) Problems Problem Type SNOMED Code ICD Code Onset Dates Problem Status W/U Status Risk Notes Problem 08467142 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) Active confirmed Problem Centrilobular emphysema (70616423) Centrilobular emphysema (J43.2) Active confirmed Problem 78981387 Emphysema, unspecified (J43.9) Active confirmed Problem Obstructive sleep apnea syndrome (21434266) IRIS (obstructive sleep apnea) (G47.33) Active confirmed Problem Tobacco user (404431104) Cigarette nicotine dependence, uncomplicated (F17.210) Active confirmed Problem Smebt-2-uagjgdcii in deficiency (01262130) AAT (ufxzn-8-pwfbkscq 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) Active confirmed Problem Family history of oqrfi-7-wzwanoato in deficiency (024153699) Family history of sqcsm-1-wzwwkrrdg in deficiency (Z83.49) Active confirmed Vital Signs Heart Rate 85 /min 08/14/2024 Temperature 97.0 degrees Fahrenheit 08/14/2024 Respiratory Rate 18 /min 08/14/2024 Oximetry 94 % 08/14/2024 Blood pressure diastolic 76 mm Hg 08/14/2024 Height 64 in 08/14/2024 Blood pressure systolic 128 mm Hg 08/14/2024 Weight 202.0 lbs 08/14/2024 BMI 34.67 kg/m2 08/14/2024 Procedures Procedure Date Ordered Date Performed Result Body Sit e Split Night Sleep Study 05/14/2024 07/02/2024 N/A Smoking/Tobacco Counseling 3 min up to 10-performed 08/14/2024 08/14/2024 N/A PFT (57903, 78668, 26139) 08/14/2024 09/23/2024 N/A Sleep study - Diagnostic Polysonogram 08/14/2024 N/A Encounters Encounter Location Date Provider Diagnosis [facility] [address] [place] [address] 08/14/2024 Saba Stein IRIS (obstructive sle ep apnea) G47.33 ; AAT (vbguy-4-hgjycqutwus) deficiency E88.01 ; Centrilobular emphysema J43.2 ; Cigarette nicotine dependence, uncomplicated F17.210 ; Family history of ftmtj-1-xnmozahyhgx deficiency Z83.49 and Encounter for screening for malignant neoplasm of respiratory organs Z12.2 [facility] [address] [place] [address] 05/14/2024 Saba Stein IRSI (obstructive sle ep apnea) G47.33 ; Centrilobular emphysema J43.2 ; Cigarette nicotine dependence, uncomplicated F17.210 ; Family history of yowgo-9-arprfiiqzwm deficiency Z83.49 and Encounter for screening for malignant neoplasm of respiratory organs Z12.2 [facility] [address] [place] [place] [address] 03/19/2024 [facility] [address] [place] [place] [address] 05/20/2024 [facility] [address] [place] [place] [address] 05/22/2024 [facility] [address] [place] [address] 06/24/2024 [facility] [address] [place] [address] 07/08/2024 [facility] [address] [place] [place] [address] 08/14/2024 [facility] IRIS (obstructive sle ep apnea) G47.33 Assessments Encounter Date Diagnosis (ICD Code) Assessment Notes Treatment Notes Treatment Clinical Notes Section Notes 05/14/2024 Centrilobular emphysema (ICD-10 - J43.2) Mild emphysematous changes noted on LDCT 01/25/2023. This is most likely due to her years of smoking, with her family history of AAT deficiency, I said I cannot rule out this as a contributing factor. If her father had liver disease, this implies that both alleles were abnormal with at least one that contributes to liver disease (e.g. Jesica Campos, Harvey fu). Based on simple genetics, she would have at least 1 abnormal allele from her father. As I do not have any records of AAT testing, I strongly recommended retesting her in the office. Obtaining a fingerprick test which tests both the genes and the level, along with gene sequencing to truly determine the patient's genetics. Regarding emphysema, as she is asymptomatic, there is no current role to order screening PFT. If AAT testing returns abnormal, especially a combination with a strong correlation associated with pulmonary disease (e.g. SZ), then I would recommend a PFT for a baseline. Regardless of any genetics, she was counseled on the importance of smoking cessation. 05/14/2024 IRIS (obstructive sleep apnea) (ICD-10 - G47.33) Patient has a history of IRIS, but this was diagnosed at least 15 to 20 years ago. I do not have any studies from that time to confirm the diagnosis, let alone the severity (AHI). She does use a CPAP and voices benefit from use. She voiced that she would like to be retested so she can get a new machine that is properly titrated to her. I discussed that there are 2 options to diagnose and titrate: -HST and then auto-CPAP -Split-night study Explained that attended sleep studies typically yield more valuable information, but for ease of use, HST can be ordered, though can be less sensitive. Patient stated that she would like to have the split-night study so that she would have the more accurate diagnosis and treatment settings/pressures. If insurance will not cover a split-night study, she voiced she is fine to proceed with HST. If/when she gets her Pap, she will need to follow-up within 30 to 90 days for compliance. She will need to wear her PAP a minimum of 4 hours for 70% of the nights. 08/14/2024 IRIS (obstructive sleep apnea) (ICD-10 - [...] she may try to get supplies from [facility]. 08/14/2024 AAT (vinar-1-hphzeven sin) deficiency (ICD-10 - E88.01) Confirmed patient [...] or FEV1, will contact her sooner. 08/14/2024 IRIS (obstructive sleep apnea) (ICD-10 - G47.33) 08/14/2024 Centrilobular emphysema (ICD-10 - J43.2) Mild emphysematous changes noted on chest CT. Has AAT deficiency with MZ allele. Smoking cessation is paramount. Ordering baseline PFT even though she is currently asymptomatic. 05/14/2024 Cigarette nicotine dependence, uncomplicated (ICD-10 - F17.210) 1ppd x 42 years Patient quit for several months over the summer, but then restarted. Patient was encouraged to work on smoking cessation again. 05/14/2024 Family history of cixev-2-nnamkdryz in deficiency (ICD-10 - Z83.49) As above, [...] was advised to stop smoking regardless. 08/14/2024 Cigarette nicotine dependence, uncomplicated (ICD-10 - [...] 01/25/2023 - RADS-1. Next LDCT due 05/2025. 05/14/2024 Encounter for screening for malignant neoplasm of [...] was counseled on smoking cessation/continued tobacco abstinence. Last LDCT was 01/25/2023, scored RADS-1. She is overdue for annual LDCT screening. I offered to order it for the patient, to which she voiced agreement. Will discuss results with her at the F/U appointment, unless a new concerning finding is noted, then she will return earlier to discuss that. 08/14/2024 Family history of cxjgh-6-tqaclqrrv in deficiency (ICD-10 - Z83.49) As above, [...] abstinence. LDCT due 05/2025. Plan Of Treatment Next Appt Details Provider Name:Saba Stein, 05/21/2025 09:30:00 AM, [address] [place], [address], Insurance Providers Payer Name Payer Address Payer Phone Subscriber Number Group Number Insured Name Patient Relationship to Insured Coverage Start Date Coverage End Date [facility] [address] [place] [address] [id number] Cristofer Heath Self - patient is the insured Medical (General) History Medical History History ICD Code IRIS (obstructive sleep apnea) G47.33 Centrilobular emphysema J43.2 HLD (hyperlipidemia) E78.5 Osteoporosis M81.0 OA (osteoarthritis) M19.90 Family history of zbzfv-0-sqxuwfrikfg de ficiency Z83.49 Cigarette nicotine dependence, uncomplic ated F17.210 AAT (tlyni-2-uodtevtuhok) deficiency E88 .01 Surgical History Surgery Date(Month/Year) right knee replacement appendectomy section ganglion cyst-right hysterectomy tonsillectomy cystoscopy with stent placement
--- OUTSIDE RECORDS SUMMARY | 2024-12-03 12:40 | XMS_ITS | Encounter Summary ---
Author Organization [facility] Address [address] [place] [address] Care Team Providers Care Trauma Registrar Name Role Phone Bahman Mcginnis MD Primary Care Provider [phone] Rema Tong TUFTER HAND Unavailable [phone] Encounter Details Date Type Department Care Team (Latest Contact Info) Description 11/26/2024 Travel Social History Tobacco Use Types Packs/Day Years [...] 9:00 AM EDT Office Visit [facility] [address] [place] [address] Estefany Garcia NP [address] [place] [address] 05/29/2025 10:10 AM EST Office Visit [facility] [address] [place] [address] Keena Irby, SENIOR MARKETING COORDINATOR-SILVER STEWARD [address] [place] [address] 12/09/2025 9:00 AM EDT Office Visit [facility] [address] [address] Alexis Rubalcava, [address] [place] [address] documented as of this encounter Visit Diagnoses Not on filedocumented in this encounter Care Teams Trauma Registrar Relationship Specialty Start Date End Date Bahman Mcginnis MD [address] [place] [address] PCP - General Family Medicine 01/24/24 Rema Tong NP [address] [place] [address] Nurse Practitioner Family Medicine 01/24/24 documented as of this encounter
--- OUTSIDE RECORDS SUMMARY | 2024-12-03 12:41 | XMS_ITS | Encounter Summary ---
Author Organization [facility] Address [address] [place] [address] Care Team Providers Care Punch Press Operator Helper Name Role Phone Raleigh Bryant DO Primary Care Provider Unavail able Reason for Visit * Reason Comments Medication Refill Encounter Details Date Type Department Care Team (Late st Contact Info) Description 11/22/2011 Refill [facility] Neurology Specialist [address] [place] [address] Rodríguez Link MD [address], [address] [place] [address] Medication Refill Social History Tobacco Use Types Packs/Day Years Used Date Smoking Tobacco: Every Day Cigarettes 1.5 30 Smokeless Tobacco: Never Alcohol Use Standard Drinks/Week Comments Yes 0 (1 standard drink = 0.6 oz pur e alcohol) but rarely Comments Unknown Sex and Gender Information Value Date Recorded Sex Assigned at Not on file Legal Sex Female 11:42 AM EST Gender Identity Not on file Sexual Orientation Not on file documented as of this encounter Plan of Treatment Not on file documented as of this encounter Visit Diagnoses Not on filedocumented in this encounter Care Teams Punch Press Operator Helper Relationship Specialty Start Date End Date Raleigh Bryant DO PCP - General 04/12/11 documented as of this encounter
--- OUTSIDE RECORDS SUMMARY | 2024-12-03 12:41 | XMS_ITS | Encounter Summary ---
Author Organization [facility] Address [facility] [address] [facility] [place] [address] Care Team Providers Care Electrical Helper Name Role Phone Estefany Garcia APRN-STATISTICIAN THEORETICAL Primary Care Provider Encounter Details Date Type Department Care Team (Late st Contact Info) Description 08/03/2022 Telephone [facility] [address] [facility] [address] [place] [phone] Fanta Jean Baptiste RMA Social History Tobacco Use Types Packs/Day Years [...] have Coronavirus / COVID-19? No / Unsure 07/15/2022 7:50 AM EST documented as of this encounter Miscellaneous Notes * Telephone Encounter - KATIE Witt - 08/03/2022 5:40 PM EST Patient left a voicemail requesting her MRI results. Upon review of patient's chart, I do not see the completed MRI. LMOVM advising patient to call the office and let us know where she had the MRI done so we can request the images and report. * Telephone Encounter - Caridad Nevarez - 08/03/2022 5:40 PM EST I called [facility] to see if they had an MRI on file because patient got her X- rays done there, but they stated she has not had an MRI done at their office. * Telephone Encounter - KATIE Witt - 08/03/2022 5:40 PM EST Patient called today stating she has not had her MRI done yet and no one has contacted her. Patientstated that she was told that she would be contacted once it was approved. I advised patient that she needs to call central scheduling to schedule the MRI and then the pre-cert department will work on the authorization process. Patient verbalized understanding. * Telephone Encounter - Caridad Nevarez - 08/03/2022 5:40 PM EST MRI scheduled 08/16. * Telephone Encounter - KATIE Witt - 08/03/2022 5:40 PM EST Pre-cert left a voicemail stating patient's lumbar MRI has been denied by insurance for lack of conservative treatment in the past three months. A peer to peer can be done with-in 14 days from today. Peer to peer info: [facility] [phone] Case # [id number] Please advise if a peer to peer is appropriate and I will schedule it. * Telephone Encounter - ELAINE Turcios - 08/03/2022 5:40 PM EST Yes. She has degenerative findings on her x-rays and a previous CT shows severe stenosis. * Telephone Encounter - KATIE Witt - 08/03/2022 5:40 PM EST Peer to peer scheduled with Dr. Rip Cabrera on 08/15/2022 at 10:15am. I provided your cell number as primary contact. * Telephone Encounter - ELAINE Turcios - 08/03/2022 5:40 PM EST MRI approval #[id number] valid through 02/01/23. * Telephone Encounter - Caridad Nevarez - 08/03/2022 5:40 PM EST Precert informed. documented in this encounter Plan of Treatment Upcoming Encounters Date Type Department Care Team (Late st Contact Info) Description 12/06/2024 10:30 AM EDT Office Visit [facility] [address] [place] [phone] Michell Cowan APRN-CNP [address] [place] [address] documented as of this encounter Visit Diagnoses Not on filedocumented in this encounter Care Teams Electrical Helper Relationship Specialty Start Date End Date Estefany Garcia APRN-CNP [address] [place] [address] PCP - General Nurse Practitioner 11/25/24 documented as of this encounter
--- OUTSIDE RECORDS SUMMARY | 2024-12-03 12:41 | XMS_ITS | Clinical Summary ---
Author Organization [facility] Address [address] [place] [address] Care Team Providers Care Machine Room Engineer Name Role Phone Bahman Mcginnis MD Primary Care Provider [phone] Rema Tong SKIVING MACHINE OPERATOR Unavailable [phone] Allergies Active Allergy Reactions Criticality Noted Date Comments Bee Venom Anaphylaxis High 10/13/2011 Cephalexin Hives 11/25/2022 Other Reaction(s): Unknown Cephalosporins Rash Low 04/19/2012 cephalexin Codeine GI intolerance,Nausea Only High 10/13/2011 Other Reaction(s): Hives, Unknown, Vomiting nausea Mixed Vespid Venom GI intolerance 11/25/2022 Moxifloxacin Hives,Nausea Only High 05/18/2016 Other Reaction(s): Unknown, Vomiting Moxifloxacin Hcl In Nacl 04/22/2011 Nitrofurantoin Hives 11/25/2022 Other Reaction(s): Unknown Sulfamethoxazole Hives 02/11/2020 Sulfamethoxazole-Trimetho prim Hives,Rash Low 04/22/2011 Other Reaction(s): Unknown Tramadol Hives,Nausea Only High 05/18/2016 Other Reaction(s): Unknown, Vomiting Trimethoprim Hives 02/11/2020 Medications EPINEPHrine (EpiPen 2-Bernardino) 0.3 MG/0.3ML injection syringe Inject as directed 1 (one) time Active melatonin 5 MG tablet Take 10 mg by mouth at bedtime Active fluticasone (Flonase) 50 MCG/ACT nasal spray Administer 1 spray into each nostril Daily 2 Active albuterol HFA 90 mcg/act inhalerIndicatio ns:URTI (acute upper respiratory infection),Wheez ing-associated respiratory infection (WARI),Non-recur rent acute suppurative otitis media of both ears without spontaneous rupture of tympanic membranes Inhale 1 puff every 4 (four) hours if needed for shortness of breath or wheezing 18 g 4 Active diclofenac (Cataflam) 50 MG tablet Take 50 mg by mouth in the morning and 50 mg before bedtime. 5 Active traZODone (Desyrel) 50 MG tabletIndication s:Major depressive disorder with single episode, in full remission Take 1 tablet (50 mg) by mouth at bedtime 90 tablet 1 5 025 Active atorvastatin (Lipitor) 20 MG tabletIndication s:Major depressive disorder with single episode, in full remission Take 1 tablet (20 mg) by mouth at bedtime 90 tablet 1 5 025 Active buPROPion XL (Wellbutrin XL) 150 MG 24 hr tabletIndication s:Tobacco abuse Take 1 tablet (150 mg) by mouth in the morning. 90 tablet 1 5 025 Active FLUoxetine (PROzac) 10 MG capsuleIndicatio ns:Major depressive disorder with single episode, in full remission Take 1 capsule (10 mg) by mouth Daily 90 capsule 1 5 025 Active hydroCHLOROthiaz sheeab (HYDRODiuril) 12.5 MG tabletIndication s:Primary hypertension Take 1 tablet (12.5 mg) by mouth Daily 90 tablet 1 5 025 Active azithromycin (Zithromax) 250 MG tabletIndication s:Subacute sinusitis, unspecified location 2 pills day #1, 1 pill day #2-#5 6 tablet 5 025 Discontin ued(Thera py completed ) alendronate (Fosamax) 35 MG tabletIndication s:Osteopenia, unspecified location Take 1 tablet (35 mg) by mouth every 7 (seven) days 12 tablet 1 5 025 Discontin ued(Thera py completed ) Active Problems Problem Noted Date Diagnosed Date Colon cancer screening 11/21/2024 Assessment & Plan (11/21/2024 9:03 AM EDT): 1 episode of blood diarrhea Normally constipation, will refer for colonscopy Grillis Encounter for screening for malignant neoplasm o f lung 11/21/2024 Assessment & Plan (11/21/2024 6:03 AM EDT): Patient meets requirements for low dose CT [...] counseled on the importance of smoking cessation. Bleeding pigmented skin lesion 11/21/2024 Alkaline phosphatase elevation 08/26/2024 IRIS (obstructive sleep apnea) 08/21/2024 Assessment & Plan (11/21/2024 8:58 AM EDT): You have a diagnosis of obstructive sleep [...] machine and tubing/filters etc: Total Respiratory Provider; [facility] Assessment & Plan (08/21/2024 9:22 AM EDT): You have a diagnosis of obstructive sleep [...] your machine and tubing/filters etc: Total Respiratory Doctor that manages your IRIS: no body is using. Has used PAP machine for over 20 years. Had at home study, told no IRIS, however she cannot sleep without the machine, working with dr hammond to see about an overnight sleep study so that she can get a new machine Class 1 obesity due to exces s calories without serious comorbidity in adult 08/21/2024 Assessment & Plan (11/21/2024 8:59 AM EDT): Discussed with patient their BMI (actual, verses recommended). We have also discussed lifestyle modifications: attempts to perform physical activity as chronic conditions allow, also to monitor dietary intake: increasing protein/fruits/veggies and lowering carb intake (unless contraindicated). Limit sodas, juices, and sugary drinks. Has lost 6 pounds since last visit Assessment & Plan (08/21/2024 6:21 AM EDT): Discussed with patient their BMI (actual, verses recommended). We have also discussed lifestyle modifications: attempts to perform physical activity as chronic conditions allow, also to monitor dietary intake: increasing protein/fruits/veggies and lowering carb intake (unless contraindicated). Limit sodas, juices, and sugary drinks. Mixed hyperlipidemia 08/21/2024 Assessment & Plan (08/21/2024 6:22 AM EDT): On statin therapy Check labs yearly and prn dose changes Cigarette nicotine dependence without complicati on 08/21/2024 Assessment & Plan (11/21/2024 6:02 AM EDT): The patient has been advised of the risks of continued smoking: stroke, [place], all forms of cancer, lung disease, and . Options for quitting smoking include: cold turkey, hypnosis, acupuncture, nicotine replacement meds (gum, lozenges, and patches), Buproprion, and Varenicline. At this time pt is encouraged to evaluate their goals for wanting to quit smoking, and reach out to provider when ready to start this process Assessment & Plan (08/21/2024 6:23 AM EDT): The patient has been advised of the risks of continued smoking: stroke, [place], all forms of cancer, lung disease, and . Options for quitting smoking include: cold turkey, hypnosis, acupuncture, nicotine replacement meds (gum, lozenges, and patches), Buproprion, and Varenicline. At this time pt is encouraged to evaluate their goals for wanting to quit smoking, and reach out to provider when ready to start this process Primary insomnia 08/21/2024 Assessment & Plan (08/21/2024 9:23 AM EDT): Currently taking trazodone, fluoxetine, wellbutrin Would not fall asleep if she did not have those meds Sinusitis 08/21/2024 Assessment & Plan (08/21/2024 9:35 AM EDT): Sxs have been present for about 2 weeks, multiple OTC meds no help Yellow drainage Will treat with atb BMI 35.0-35.9,adult 01/24/2024 Assessment & Plan (01/24/2024 1:33 PM EDT): Adpiex ordered. Pt meets qualifications of OAC 4731-04-15 for weight loss. BMI>30 or >27 with comorbid conditions. Blood pressure WNL. Notify office with any symptoms of chest pain, dyspnea, heart palpitations, or any anxiety symptoms. F/U in 4 weeks to document weight loss. Increase physical activity as tolerated, and lower caloric intake to 1600 calories daily if no contraindications Wheezing-associated respiratory infection (WARI) 10/04/2023 Primary osteoarthritis of left hip 07/17/2023 Primary hypertension 07/17/2023 Assessment & Plan (11/21/2024 6:01 AM EDT): Please check blood pressure daily and record DASH diet Limit caffeine Take medication as directed Contact office if chest pain, pressure, dizziness, shortness of breath, swelling legs Recommend slow position changes Current med: hydrochlorothiazide Assessment & Plan (08/21/2024 6:19 AM EDT): Please check blood pressure daily and record DASH diet Limit caffeine Take medication as directed Contact office if chest pain, pressure, dizziness, shortness of breath, swelling legs Recommend slow position changes Current med: hydrochlorothiazide Assessment & Plan (07/17/2023 9:43 AM EST): Asymptomatic. Denies CP, SOB, palpitations. Monitoring w/o medications. Denies lightheadedness, dizziness, syncope, presyncope. Patient encouraged to continue with home BP monitoring and call office if she experiences orthostatic symptoms or persistently elevated BP. Major depressive disorder wi th single episode, in full remission 07/17/2023 Assessment & Plan (08/21/2024 9:26 AM EDT): Current medication: fluoxetine, wellbutrin XL, and also trazodone Assessment & Plan (01/24/2024 1:34 PM EDT): Continue Wellbutrin and Prozac and prescribed. Tolerating well. Assessment & Plan (07/17/2023 9:46 AM EST): Well controlled. Last appointment, she was weaned off of Prozac and her dose was decreased to 10 mg daily. Doing well on it. Spinal stenosis of lumbar re gion with neurogenic claudication 09/08/2022 Overview (07/17/2023): Added automatically from request for surgery [id number] S/P total knee replacement, right 10/27/2021 Primary osteoarthritis of right knee 07/19/2021 Overview (07/17/2023): Added automatically from request for surgery [id number] Osteoporosis 03/19/2018 Assessment & Plan (08/21/2024 1:36 PM EDT): Current medication: fosamax, no side effects from med DEXA scan: 02/02 spine 1.3, femur -2.2 Seasonal allergies Resolved Problems Problem Noted Date Diagnosed Date Resolved Date Non-recurrent acute suppurat nina otitis media of both ears without spontaneous rupture of tympanic membranes 10/04/2023 08/21/2024 Hypersomnia with sleep apnea 07/17/2023 08/21/2024 Assessment & Plan (02/23/2024 1:44 PM EDT): Does wear CPAP- has not had a sleep study or equipment change in several years 15-20 years. Reports headaches and frequent yawning. Will refer for sleep study and CPAP management. Tobacco abuse 07/17/2023 08/21/2024 Assessment & Plan (07/17/2023 9:47 AM EST): Patient trying to quit smoking. She is [...] minutes were spent on Smoking/Tobacco use counseling. URTI (acute upper respiratory infection) 07/17/2023 08/21/2024 Assessment & Plan (05/16/2024 9:43 AM EST): Presents today complaining of URI symptoms ongoing for 2 weeks Admits: Productive cough-yellow phlegm Runny nose Ear ache Sore throat Headache Has tried several OTC treatments with no relief. Will order Azithromycin, prednisone and tessalon pearles today. Assessment & Plan (07/17/2023 9:44 AM EST): She reports feeling tired for past few days. For a couple of days, she also felt lightheaded and dizzy. Her BP was at goal and her blood glucose were normal Patient's exam indicated bilateral suppurative otitis media along with pharyngitis. Will call in oral Azithromycin for her. HLD (hyperlipidemia) 03/19/2018 025 Assessment & Plan (01/24/2024 1:34 PM EDT): Continue Atorvastatin as directed. Will recheck in 3 months with yearly labs Assessment & Plan (07/17/2023 9:44 AM EST): On Lipitor. C/w same. Sleep apnea 03/19/2018 08/21/2024 Overview (07/17/2023): CPAP Assessment & Plan (07/17/2023 9:42 AM EST): H/o IRIS, being treated with CPAP. Patient has not had a Sleep Study over 15 years ago. Refer to Sleep Clinic. Asking for a referral to Dr. Hennessy. Encounters Date Type Department Care Team Description 12/03/2024 10:00 AM EDT Office Visit [facility] [address] [address] Luis Rubalcava, Well woman exam with routine gynecological exam; Encounter for screening mammogram for malignant neoplasm of breast; Postmenopausal state 12/03/2024 Bamboo flowsheet [facility] [address] [address] Luis Rubalcava DO 11/26/2024 10:55 AM EDT Office Visit [facility] [address] [place] [phone] Keena Irby, CANAL STRUCTURE OPERATOR-CORPORATE LEGAL INTERN Seborrheic keratosis (Primary Dx); Inflamed seborrheic keratosis 11/26/2024 Bamboo flowsheet [facility] [address] [place] [address] Keena Irby APRN-DARLENE 11/26/2024 Travel 11/21/2024 8:40 AM EDT Office Visit [facility] [address] [address] Estefany Garcia NP IRIS (obstructive sleep apnea) (Primary Dx); Primary hypertension ; Class 1 obesity due to excess calories without serious comorbidity with body mass index (BMI) of 33.0 to 33.9 in adult; Cigarette nicotine dependence without complication; Colon cancer screening; Bleeding pigmented skin lesion 11/21/2024 Orders Only [facility] [address] [address] Rober Hammond, 11/21/2024 Bamboo flowsheet [facility] [address] [phone] Estefany Garcia NP 10/28/2024 Refill [facility] [address] [address] Estefany Garcia, MARY Osteopenia, unspecified location; Major depressive disorder with single episode, in full remission ; Tobacco abuse; Primary hypertension 10/28/2024 Telephone [facility] [address] [address] Estefany Garcia NP 10/17/2024 Refill [facility] [address] [place] [address] Estefany Garcia, MARY Major depressive disorder with single episode, in full remission 10/17/2024 Telephone [facility] [address] [place] [address] Estefany Garcia NP 10/04/2024 Refill [facility] [address] [place] [address] Bahman Mcginnis MD Major depressive disorder with single episode, in full remission 09/23/2024 Telephone [facility] [address] [place] [address] Estefany Garcia NP 09/23/2024 Clinisync Result Encounter [facility] External Department Unsolicited Estefany Garcia NP 09/16/2024 Refill [facility] [address] [place] [address] Bahman Mcginnis MD Major depressive disorder with single episode, in full remission from Last 3 Months Immunizations Immunization Administration Dates Next Due DTP 12/05/2012 Influenza, Recombinant, inje ctable, preservative free 06/07/2024 Influenza, injectable, MDCK, preservative free, quadrivalent 07/31/2019 Influenza, injectable, quadr ivalent, preservative free 04/16/2020,04/19/2018,03/29/2017 Influenza, recombinant, quad rivalent, injectable, preservative free 03/15/2023 Influenza, seasonal, injecta ble, preservative free 06/01/2017,06/18/2015 Pneumococcal Conjugate PCV 20 03/15/2023 Tdap 06/07/2024 Zoster, Recombinant 07/17/2023,04/24/2023 Family History Medical History Relation Name Comments Diabetes Father Liver disease Father Diabetes Maternal Grandfather Heart disease Maternal Grandfather Diabetes Maternal Grandmother Cancer Mother Hypertension Mother bladder cancer Mother Diabetes Paternal Grandfather Heart disease Paternal Grandfather Diabetes Paternal Grandmother Relation Name Status Comments Father Maternal Grandfather Maternal Grandmother Mother Paternal Grandfather Paternal Grandmother Social History Tobacco Use Types Packs/Day Years Used Date Smoking Tobacco: Former Cigarettes 1 26.2 1 998 - 08/2023 Passive Smoke Exposure: Past Tobacco Cessation:Counseling Given: No Alcohol Use Standard Drinks/Week Comments Never 0 [...] Pressure 130/76 12/03/2024 10:16 AM EDT Pulse 69 11/21/2024 8:35 AM EDT Temperature 36.6 C (97.8 F) 11/21/2024 8:35 AM EDT Respiratory Rate 18 11/21/2024 8:35 AM EDT Oxygen Saturation 97% 11/21/2024 8:35 AM EDT Inhaled Oxygen Concentration - - Weight 86 kg (189 lb 8 oz) 12/03/2024 10:16 AM E DT Height 162.6 cm (5' 4 ) 08/21/2024 9:07 AM EDT Body Mass Index 32.53 08/21/2024 9:07 AM EDT Plan of Treatment Upcoming Encounters Date Type Department Care Team (Late st Contact Info) Description 02/25/2025 9:00 AM EDT Office Visit [facility] [address] [place] [address] Estefany Garcia, MARY [address] [place] [address] 05/29/2025 10:10 AM EST Office Visit [facility] [address] [place] [phone] Keena Irby APRN-CORPORATE LEGAL INTERN [address] [place] [address] 12/09/2025 9:00 AM EDT Office Visit [facility] [address] [place] [address] Luis Rubalcava, [address] [place], [place] [id number] Health Maintenance Due Date Last Done Comments CT Colonography 1960 Colonoscopy 1960 FIT 1960 FOBT 1960 Sigmoidoscopy 1960 Mammogram 01/28/2025 01/29/2024, 09/0 08/2022, 11/18/2021, Additional history exists Colorectal Cancer Screening 03/09/2025 FIT-DNA 03/09/2025 03/09/2022, 01/28/2019 Lung Cancer Screening Shared Decision Making 06/10/2025 Postponed from 1960 (Other Medical Reasons) HPV/Cotest Discontinued 12/06/2022 Cervical Cancer Screening Discontinued Pap Smear Discontinued 11/30/2023 Influenza Vaccine Completed 06/07/2024, , 04/16/2020, Additional history exists Procedures Procedure Name Priority Date/Time Associated Diagnosis Comments CRYOTHERAPY SKIN LESION Routine 11/26/2024 10:48 AM EDT Inflamed seborrheic keratosis CT LUNG SCREENING LOW DOSE Routine 11/21/2024 9:16 AM EDT ALL GAMMA GLUTAMYL TRANSPEPTIDASE Routine 09/23/2024 8:50 AM EDT [facility] LIVER PANEL Routine 09/23/2024 8:50 AM EDT MM TOMOSYNTHESIS SCREENING BI 01/29/2024 11:13 AM EDT PAP SMEAR Routine 11/30/2023 12:00 AM EDT THINPREP PAP AND HPV MRNA E6/E7 W/RFL HPV 16,18/45 Routine 12/06/2022 8:45 AM EDT Well woman exam with routine gynecological exam from Last 3 Months or Most Recently Relevant to Health Maintenance Results * Cryotherapy, skin lesion (11/26/2024 10:48 AM EDT) Keena Irby CANAL STRUCTURE OPERATOR-CORPORATE LEGAL INTERN DERM PROCEDURE ORDERAB LES Final Result * CT lung screening low dose (11/21/2024 9:16 AM EDT) Anatomical Region Laterality Modality Lung Computed Tomogra phy Rober Hammond DO IMG CT PROCEDURES Final Result * (ABNORMAL) [facility] LIVER PANEL (09/23/2024 8:50 AM EDT) BILIRUBIN TOTAL 0.4 0.2 - 1.0 mg/dL [facility] BILIRUBIN DIRECT 0.1 0.0 - 0.2 mg/dL [facility] ASPARTATE AMINO TRANSFERASE 13(L) 15 - 37 U/L [facility] ALANINE AMINOTRANSFERASE 21 14 - 59 U/L [facility] ALKALINE PHOSPHATASE 116 46 - 116 U/L [facility] TOTAL PROTEIN 6.7 6.4 - 8.2 g/dL [facility] ALBUMIN LEVEL 3.7 3.4 - 5.0 g/dL [facility] GLOBULIN 3.0 g/dL [facility] ALBUMIN GLOBULIN RATIO 1.2 [facility] 09/23/2024 8:50 AM EDT 09/23/2024 8:56 AM EDT Narrative [facility] - 09/23/2024 9:21 AM EDT us Estefany Garcia SKIVING MACHINE OPERATOR [facility] Final Result [facility] * ALL GAMMA GLUTAMYL TRANSPEPTIDASE (09/23/2024 8:50 AM EDT) GAMMA GLUTAMYL TRANSPEPTIDASE 34 8 - 55 U/L [facility] 09/23/2024 8:50 AM EDT 09/23/2024 8:56 AM EDT Narrative [facility] - 09/23/2024 9:21 AM EDT us Estefany Garcia SKIVING MACHINE OPERATOR [facility] Final Result Performing Organization Address City/[facility]/ZIP Co de Phone Number [facility] TB * MM TOMOSYNTHESIS SCREENING BI (01/29/2024 11:13 AM EDT) Anatomical Region Laterality Modality Other 01/29/2024 11:1 3 AM EDT Narrative 01/29/2024 11:14 [place] [address] Mammography Report Signed Patient: ROZ HEATH MR#: [id number] : 1960 Acct:[id number] Age/Sex: 63 / F ADM Date: 01/29/24 Loc: MAMMO Attending Dr: Luis Rubalcava D.O. Ordering Physician: Luis Rubalcava D.O. Results: Date of Service: 01/29/24 Follow Up: Procedure(s): MM tomosynthesis screening BI Accession Number(s): [id number] cc: Shaikh Ry Hahn; Luis Rubalcava D.O. Patient Name: ROZ HEATH MR#: [id number] : 1960 Exam Date: 01/29/2024 Ordering Doctor: [...] bladder cancer at age 73. LOCATION: [facility] BREAST COMPOSITION: There are scattered areas of [...] Signed By: 01/29/24 1114 DD/ 1113 TD/TT: Dock Hand: Procedure Note Radiology, Radiologist, MD - 01/29/2024 [place] [address] Mammography Report Signed Patient: ROZ HEATH LMR#: [id number] : 1Acct:[id number] Age/Sex: 63 / FADM Date: 01/29/24 Loc: MAMMO Attending Dr: Luis Rubalcava D.O. Ordering Physician: Luis Rubalcava D.O.Results: Date of Service: 01/29/24Follow Up: Procedure(s): MM tomosynthesis screening BI Accession Number(s): [id number] cc: Shaikh Ry Hahn; Luis Rubalcava D.O. Patient Name: ROZ HEATH MR#: [id number] : 1960 Exam Date: 01/29/2024 Ordering Doctor: [...] bladder cancer at age 73. LOCATION: [facility] BREAST COMPOSITION: There are scattered areas of [...] M.D. Signed By:01/29/24 1114 DD/ 1113 TD/TT: Dock Hand: Luis Rubalcava DO [facility] IMAGING Final Result * Pap Smear (11/30/2023 12:00 AM EDT) Swab Cervical swab / Unknown Khadar Nurse [facility] LAB CYTOLOGY ORDERABLES Final Result EXTERNAL LAB * THINPREP PAP AND HPV MRNA E6/E7 W/RFL HPV 16,18/45 (12/06/2022 8:45 AM EDT) Luis Rubalcava DO LAB BLOOD ORDERABLES Final Resul t EXTERNAL LAB from Last 3 Months or Most Recently Relevant to Health Maintenance Insurance [facility] Care Teams Machine Room Engineer Relationship Specialty Start Date End Date Bahman Mcginnis MD [address] [place] [address] PCP - General Family Medicine 01/24/24 Rema Tong NP [address] [place] [address] Nurse Practitioner Family Medicine 01/24/24
--- OUTSIDE RECORDS SUMMARY | 2024-12-03 12:41 | XMS_ITS | Encounter Summary ---
Author Organization [facility] Address [address] [place] [address] Care Team Providers Care Real Estate Administrator Name Role Phone Bahman Mcginnis MD Primary Care Provider [phone] Rema Tong RAISED PRINTER Unavailable [phone] Encounter Details Date Type Department Care Team (Late st Contact Info) Description 12/03/2024 Bamboo flowsheet [facility] [address] [place] [address] Alexis Rubalcava, DO [address] [place], [place] [phone] Social History Tobacco Use Types Packs/Day Years [...] Visit [facility] [address] [place] [phone] Estefany Garcia NP [address] [address] 05/29/2025 10:10 AM EST Office Visit [facility] [address] [place] [address] Keena Irby APRN-COLLAR PADDER BLINDSTITCH [address] [place] [address] 12/09/2025 9:00 AM EDT Office Visit [facility] [address] [place] [address] Alexis Rubalcava, DO [address] [place], [place] [id number] documented as of this encounter Visit Diagnoses Not on filedocumented in this encounter Care Teams Real Estate Administrator Relationship Specialty Start Date End Date Bahman Mcginnis MD [address] [place] [phone] PCP - General Family Medicine 01/24/24 Rema Tong NP [address] [place] [address] Nurse Practitioner Family Medicine 01/24/24 documented as of this encounter
--- OUTSIDE RECORDS SUMMARY | 2024-12-03 12:41 | XMS_ITS | Encounter Summary ---
Author Organization [facility]bs[facility] Address [address] [place] [address] Care Team Providers Care Executive Recruiter Name Role Phone Raleigh Bryant DO Primary Care Provider Unavail able Reason for Visit * Reason Comments Other Encounter Details Date Type Department Care Team (Late st Contact Info) Description 02/26/2013 Refill [facility] Neurology Specialist [address] [place] [phone] Rodríguez Link MD [address], [address] [place] [address] Other Social History Tobacco Use Types Packs/Day Years Used Date Smoking Tobacco: Every Day Cigarettes 1.5 30 Smokeless Tobacco: Never Comments:going to start the patch Alcohol Use [...] on filedocumented in this encounter Care Teams Executive Recruiter Relationship Specialty Start Date End Date Raleigh Bryant DO PCP - General 04/12/11 documented as of this encounter
[2024-12-06 10:08] LABS: Age Gdln ACOG Testing Note (.); HPV Aptima Negative (Negative); IGP, Aptima HPV, rfx 16/18,45 Note (.)
== END 2024-12-03 12:33 | disposition home or self-care (01) ==
LOC: LAB 12:32
PROVIDERS: Visit Provider Obstetrics & Gynecology
DX: Z01.419 Encounter for gynecological examination (general) (routine) without abnormal findings (principal)
CPT/HCPCS: 87624; 88175

== ENCOUNTER 2025-02-03 12:25 | Outpatient (OUT) | payer OTHER, SELFPAY ==
--- NOTE | 2025-02-03 12:31 | MM_ITS ---
Patient Name: CRISTOFER HEATH MR#: [id number] : 1960 Exam Date: 02/03/2025 Ordering Doctor: DR LUIS MUNSON . RADIOLOGY REPORT PROCEDURE: MM TOMOSYNTHESIS SCREENING BI COMPARISON: MM TOMOSYNTHESIS SCREENING BI, 01/29/2024. MM DIAGNOSTIC MAMMO BI, 02/15/2023. MM TOMOSYNTHESIS SCREENING BI, 01/25/2023. MAMMO PURVI SCREEN, 01/01/2014. INDICATIONS: Screening for malignant neoplasm Calculator Name NCI Breast Cancer Risk Assessment Tool 5 Year Breast Cancer Risk 1.60% Lifetime Breast Cancer Risk 6.80% Personal Breast Cancer No Personal Ovarian Cancer No Treatments None Family Cancers Mother with bladder cancer at age 72. LOCATION: [facility] BREAST COMPOSITION: There are scattered areas of fibroglandular density. FINDINGS: DIAGNOSTIC CATEGORY 1--NEGATIVE. RIGHT BREAST: No significant suspicious finding. LEFT BREAST: No significant suspicious finding. RECOMMENDATIONS: ROUTINE MAMMOGRAM AND CLINICAL EVALUATION IN 12 MONTHS. Dictated by: Rd Rodrigues DO on 02/03/2025 at 15:49 Approved by: Rd Rodrigues DO on 02/03/2025 at 15:49
== END 2025-02-03 12:26 | disposition home or self-care (01) ==
LOC: RAD 12:25
PROVIDERS: PCP Nurse Practitioner; Visit Provider Obstetrics & Gynecology
DX: Z12.31 Encounter for screening mammogram for malignant neoplasm of breast (principal); Z78.0 Asymptomatic menopausal state; Z80.8 Family history of malignant neoplasm of other organs or systems; M85.88 Other specified disorders of bone density and structure, other site
CPT/HCPCS: 77063; 77067; 77080

== ENCOUNTER 2025-05-22 09:52 | Outpatient (OUT) | payer OTHER, SELFPAY ==
--- NOTE | 2025-05-22 09:55 | CT_ITS ---
The [address] [address] Patient Name: CRISTOFER HEATH MRN: [id number] date: 1960 Sex: F Assigned Patient Location: CT Current Patient Location: CT Accession/Order Number: [id number] Exam Date: 05/22/2025 10:05 Report Date: 05/22/2025 10:35 At the request of: SABA STEIN DO Procedure: CT lung screening low-dose LOW-DOSE SCREENING CHEST CT WITHOUT CONTRAST COMPARISON: 05/21/2024 CLINICAL DATA: Current smoker with 25 pack year history. Spiral axial unenhanced low-dose images were obtained through the chest. Images were reviewed using both narrow and wide window settings. This CT exam was performed using one or more following dose reduction techniques: Automated exposure control, adjustment of the mA and/or kV according to patient size, or use of iterative reconstruction technique. The heart is normal size. No pericardial effusion is present. Coronary artery disease is seen. There is no aortic aneurysm. Minor plaque is present at the aortic arch and proximal great vessels. There are precarinal lymph nodes with short axis dimension up to 1 cm, slightly larger. There is S-shaped thoracolumbar scoliotic curvature and endplate spurring. An azygos lobe is visualized. There is minor dependent atelectasis. Minimal atelectasis or scarring is also seen at the lingula. No additional consolidation, pleural effusion or pneumothorax is identified. A tiny 3 mm left upper lobe pulmonary nodule is again visualized (axial image 98). No new nodularity is seen. Limited imaging through the upper abdomen shows no contributory findings. CT/CT lung screening low-dose IMPRESSION: STABLE TINY LEFT UPPER LOBE NODULE. NO ACUTE FINDINGS. Lung RADS category 2 - benign Twelve-month low-dose CT follow-up suggested. Impression dictated by: Cassandra Michelle M.D. 05/22/2025 10:35 AM Dictation Location: [place] [address] Electronically authenticated by: [id number] Y Date: 05/22/2025 10:35
--- OUTSIDE RECORDS SUMMARY | 2025-05-22 09:58 | XMS_ITS | CCD ---
Author Organization [facility] Care Team Providers Care Boarding Mother Name Role Phone ISRAEL HAHNIKH H Primary Care Unavailable DR Chetna Virk Consulting Unavailable FAWWAD, JAMESON H Admitting Unavailable FAWWAYaima, JAMESON H Attending Unavailable JOVANI, JMAESON H Consulting Unavailable FATIFFANY, JAMESON H Primary Care Unavailable FAWWAD, JAMESON H Admitting Unavailable FAWWAD, JAMESON H Attending Unavailable JOVANI, JAMESON H Consulting Unavailable Shaikh Hahn MD Primary Care Provider Bahman Mcginnis MD Primary Care Provider Ran DELIVERY ASSOCIATE, Sindhu Unavailable Shaikh Hahn MD Primary Care Provider Shaikh Hahn MD Primary Care Provider Ran DELIVERY ASSOCIATE, Sindhu Unavailable Shaikh Hahn MD Primary Care Provider Estefany Davis Primary Care Provider MICHELL COWAN Attending Unavailable ESTEFANY GARCIA Referring Unavailable ESTEFANY GARCIA Primary Care Unavailable ZEINA GARCIA Attending Unavailable SHAIKH HAHN Referring Unavailable SHAIKH HAHN Primary Care Unavailable ROLY DICKENS Attending Unavailable ROLY DICKENS Referring Unavailable JOVANI, Primary Care Unavailable ROLY DICKENS Admitting Unavailable ROLY DICKENS Attending Unavailable ROLY DICKENS Referring Unavailable [facility] Unavailable YADIEL GARCIA Attending Unavailable [facility] Referring Unavailable FAWGAD, [facility] Primary Care Unavailable DICKENS, ROLY E Admitting Unavailable DICKENS, ROLY E Attending Unavailable FAWGAD, [facility] Referring Unavailable FAWGAD, [facility] Primary Care Unavailable DICKENS, ROLY E Attending Unavailable DICKENS, ROLY E Referring Unavailable [facility] Primary Care Unavailable NIZAK, YADIEL S Attending Unavailable FAWGAD, [facility] Referring Unavailable FAWWAD, [facility] Primary Care Unavailable DICKENS, ROLY E Admitting Unavailable DICKENS, ROLY E Attending Unavailable FAWGAD, [facility] Referring Unavailable FAWWAD, [facility] Primary Care Unavailable DICKENS, ROLY E Attending Unavailable DICKENS, ROLY E Referring Unavailable FAWGAD, [facility] Primary Care Unavailable NIZAK, YADIEL Gabriel Attending Unavailable [facility] Referring Unavailable FAWGAD, [facility] Primary Care Unavailable DICKENS, ROLY E Admitting Unavailable DICKENS, ROLY E Attending Unavailable [facility] Referring Unavailable FAWGAD, [facility] Primary Care Unavailable DICKENS, ROLY E Attending Unavailable DICKENS, ROLY E Referring Unavailable [facility] Primary Care Unavailable YADIEL GARCIA [facility]ending [facility] Referring Unavailable [facility] Primary Care Unavailable NIYADIEL PADRON Attending Unavailable YADIEL GARCIA Referring [facility] Care Unavailable JOSE, YADIEL Gabriel Attending Unavailable [facility] Referring Unavailable [facility], [facility] Primary Care Unavailable DICKENS, ROLY E Attending Unavailable DICKENS, ROLY E Referring Un[facility] Primary Care Unavailable DICKENS, ROLY E Admitting Unavailable DICKENS, ROLY E Attending Unavailable [facility], [facility] Referring Unavailable [facility] Primary Care Unavailable NIYADIEL PADRON Attending Un[facility] Referring Un[facility] Primary Care Unavailable JESSICA MAYNARD Admitting Unavailable JESSICA MAYNARD Attending Unavailable JESSICA MAYNARD Referring Unavailable ESTEFANY GARCIA Primary Care Unavailable ESTEFANY GARCIA Primary Care Unavailable SAUL BANERJEE Attending Unavailable AICHHOLZ, ESTEFANY Attending Unavailable AICHHOLZ, ESTEFANY Attending Unavailable MER IRBY Attending Unavailable AICHHOLBeth, ESTEFANY Referring Unavailable ALEXIS RUBALCAVA Attending Unavailable AICHHOLBeth, ESTEFANY Attending Unavailable TONG, SINDHU Attending Unavailabl e TONG, SINDHU Attending Unavailabl e TONG, SINDHU Attending Unavailabl e Jjhholz DELIVERY ASSOCIATE-C, Esteafny Johnson Primary Care Provider Radha DELIVERY ASSOCIATE-C, Estefany Johnson Attending Provider Bahman Mcginnis MD Primary Care Provider Ran DELIVERY ASSOCIATE, Sindhu Unavailable [phone] Radha DELIVERY ASSOCIATE-C, Estefany Johnson Primary Care Provider Radha DELIVERY ASSOCIATE-C, Estefany Johnson Attending Provider Allergies Allergy ClassificationReported Allergen(s)Allergy TypeDate of OnsetReaction(s) Facility (1 source)bee venomDrug allergy (disorder)[facility] Repository (3 sources)CephalexinDrug Iewftyg38-55-1451SvogzWsq [facility] Repository (6 sources)Codeine; Translations: [CODEINE]Drug Vxvsqmi61-00-8970BfifqOsk [facility] Repository (1 source)moxifloxacinDrug AllergyThe [facility] (1 source)Sulfamethoxazole / TrimethoprimDrug AllergyThe [facility] (1 source)traMADolDrug AllergyThe [facility] (20 sources)CephalexinDrug Veyqgyt22-50-5943SoqagEBDX Healthcare (20 sources)CodeineDrug Pmrrhir52-74-5314SY intolerance, Nausea Only, Nausea, VomitingNOMS Healthcare (20 sources)Mixed vespid venomPropensity to adverse ixfbddlsr19-12-7411AU intoleranceNOMS Healthcare (20 sources)moxifloxacin; Translations: [MOXIFLOXACIN]Drug Lwkjpvk74-23-4033 Hives, Nausea Only, Nausea, VomitingNOMS Healthcare Work Phone: (20 sources)NitrofurantoinDrug Vlaxblt47-06-4736HxrmzNOED Healthcare (20 sources)Sulfamethoxazole / Trimethoprim; Translations: [SULFAMETHOXAZOLE-TRIMETHOPRIM]Drug Hjwqaji73-80-6652Kbfxi, RashNOMS Healthcare (20 sources)traMADol; Translations: [TRAMADOL]Drug Nhqzmva03-15-0668Xiehr, Nausea Only, Nausea, VomitingNOMS Healthcare (20 sources)Cephalosporins (Antibiotic); Translations: [CEPHALOSPORINS]Drug Flrgdzhafhd12-17-9868WdkrIICS Healthcare (20 sources)Honey bee venomAllergy to xgunkexno22-35-2722FigcyovcyogZZGT Healthcare (20 sources)SulfamethoxazoleAllergy to jmyogrigu68-44-6411KqogfAKAA Healthcare (20 sources)TrimethoprimDrug Hywgnsw90-72-9522DegqrANKA Healthcare (20 sources)Moxifloxacin Hcl In NaclDrug Acrcvickwtq96-93-3488QDZX Healthcare (11 sources)Cephalosporins (Antibiotic)Propensity to adverse reactions to drug 39-15-4523ZdulDipKsbdmj Health System (19 sources)Bee Venom Protein (Honey Bee); Translations: [BEE VENOM PROTEIN (HONEY BEE)]Propensity to adverse reactions to ikoo97-35-4929Ectmhpzsgpd [facility] (2 sources)AmoxicillinDrug Qwkkidj76-04-9919Qcsrqsm [facility] (2 sources)venom-honey beeAllergy to -48-6138WxtaltbpaabAbndqkyoe [facility] Medications Current Medications MedicationDrug Class(es)DatesSig (Normalized)Sig (Original)acetaminophen 500 mg oral tablet (14 sources) End: 46-90-7526zxyd 2 tablets by mouth every six hours as needed for pain acetaminophen (TYLENOL) 500 mg tablet Take 2 tablets (1,000 mg total) by mouth every 6 (six) hours as needed for pain. 12/06/2024 Discontinued (Therapy completed)[id number] 200 actuat albuterol 0.09 mg/actuat metered dose inhaler (20 sources)beta2-Adrenergic AgonistStart: 27-71-5731kvok 1 puff(s) by inhalation every six hours as neededStart: 41-42-2411mpbh 1 puff(s) by inhalation every four hours for wheezingalbuterol HFA 90 mcg/act inhaler Indications: URTI (acute upper respiratory infection) , Wheezing-associated respiratory infection (WARI) , Non-recurrent acute suppurative otitis media of both ears without spontaneous rupture of tympanic membranes Inhale 1 puff every 4 (four) hours if needed for shortness of breath or wheezing 18 g 10/04/2023 ActiveStart: 10-04-2023 End: 18-48-4147kcwj 1 puff(s) by inhalation every four hours as neededalbuterol (PROVENTIL HFA;VENTOLIN HFA) 90 mcg/actuation inhaler Inhale 1 puff every 4 (four) hours as needed. 10/04/2023 12/06/2024 Discontinued (Therapy completed) Start: 69-11-7421sezs 1 puff(s) by inhalation every four hoursalbuterol HFA 90 mcg/act inhaler Inhale 1 puff every 4 (four) hours if needed. 0 04/13/2022 Activealendronic acid 35 mg oral tablet (20 sources)BisphosphonateStart: 94-41-8673zcpz 1 tablet by mouth every week Start: 02-19-2024 End: 27-38-2952fdfy 1 tablet by mouth in the morningalendronate (Fosamax) 35 MG tablet Indications: Age related osteoporosis, unspecified pathological fracture presence Take 1 tablet (35 mg) by mouth every 7 (seven) days Take in the morning with a full glass of water, on an empty stomach, and do not take anything else by mouth or lie down for the next 30 min. 12 tablet 1 12/25/2024 03/19/2025 ActiveStart: 09-19-2023 End: 87-08-9411pawn 1 tablet by mouth every weekalendronate (Fosamax) 35 MG tablet Indications: Osteopenia, unspecified location Take 1 tablet by mouth once a week 12 tablet 1 09/19/2023 02/19/2024 Discontinued (Reorder)Start: 06-13-2023 take 1 tablet by mouth every weekalendronate (Fosamax) 35 MG tablet Indications: Osteopenia, unspecified location Take 1 tablet by mouth once a week 12 tablet 0 06/13/2023 ActiveStart: 43-62-3040dfuf 10 mg by mouth every weekalendronate (FOSAMAX) 35 mg tablet Take 10 mg by mouth once a week. 03/26/2016 ActiveStart: 03-26-2016 End: 14-94-8422jqev 1 tablet by mouth once dailyAlendronate 10 mg tablet Discontinued 10 MG PO Daily February 10, 2020 11:00pm February 23, 2025 12:48pmascorbic acid 1000 mg oral tablet (12 sources)Vitamin C End: 56-27-8223emas 1 tablet by mouth in the morningascorbic acid, vitamin C, (VITAMIN C) 1000 mg tablet Take 1 tablet (1,000 mg total) by mouth in the morning. 12/06/2024 Discontinued (Therapy completed)atorvastatin 20 mg oral tablet (20 sources)HMG-CoA Reductase InhibitorStart: 2016 End: 62-84-5389ucxg 1 tablet by mouth once daily at bedtimebenzonatate 100 mg oral capsule (4 sources)Non-narcotic AntitussiveStart: 05-16-2024 End: 01-69-6036isly 1 capsule by mouth three times daily as needed for cough benzonatate (Tessalon Perles) 100 MG capsule Indications: Upper respiratory tract infection, unspecified type Take 1 capsule (100 mg) by mouth 3 (three) times a day as needed for cough for up to 7 days Do not crush or chew. 20 capsule 05/16/2024 05/23/2024 Eqvdyu76 hr buPROPion hydrochloride 150 mg extended release oral tablet (20 sources)AminoketoneStart: 83-05-9080nzjc 1 tablet by mouth once daily in the morningStart: 07-17-2023 End: 37-37-5328sfbp 1 tablet by mouth every twenty-four hours in the morning buPROPion XL (Wellbutrin XL) 150 MG 24 hr tablet Indications: Tobacco abuse Take 1 tablet (150 mg) by mouth in the morning. 90 tablet 1 10/28/2024 Activetake 1 tablet by mouth once daily in the morningbuPROPion XL (WELLBUTRIN XL) 150 mg 24 hr tablet Take 1 tablet (150 mg total) by mouth every morning. Activecalcium carbonate 1500 mg oral tablet (20 sources)Start: 54-23-9390reko 1 tablet by mouth twice dailytake 1 tablet by mouth at mealtimecalcium carbonate (Super Calcium) 1500 (600 Ca) MG tablet Take by mouth in the morning and in the evening. Take with meals. Active End: 36-23-2655vdmv 2.5 tablets by mouth in the morningcalcium carbonate (OS- JULIO CÉSAR) 500 mg elemental (1,250 mg) tablet Take 2.5 tablets (1,250 mg total) by m outh in the morning. 12/06/2024 Discontinued (Therapy completed)take 1 tablet by mouth in the morningcalcium carbonate (Os-Julio César) 1250 (500 Ca) MG tablet Take 1,250 mg by mouth in the morning. Activecholecalciferol 0.01 mg oral capsule (20 sources)Vitamin DStart: 20-21-5879rqjg 1 capsule by mouth once dailyStart: 07-19-2023 End: 98-56-5845ftwf 1 capsule by mouth in the morningcholecalciferol (Vitamin D- 3) 10 MCG (400 UNIT) capsule Indications: Osteoporosis, unspecified osteoporosis type, unspecified pathological fracture presence (CMS/HCC) Take 1 capsule (10 mcg) by mouthin the morning. 30 capsule 11 07/19/2023 07/18/2024 ActiveStart: 02-14-2023 End: 38-94-3135rcfs 1 tablet by mouth in the morningcholecalciferol (Vitamin D- 3) 20 MCG (800 UNIT) tablet Indications: Osteopenia, unspecified location Take 1 tablet (20 mcg) by mouth in the morning. 30 tablet 11 02/14/2023 07/17/2023 Discontinued (Therapy completed)Start: 02-14-2023 End: 70-34-7406spmn 1 tablet by mouth in the morningcholecalciferol (Vitamin D- 3) 20 MCG (800 UNIT) tablet Indications: Osteopenia, unspecified location Take 1 tablet (20 mcg) by mouth in the morning. 30 tablet 11 02/14/2023 02/14/2024 ActiveStart: 66-29-3082spcy 1 tablet by mouth twice daily at mealtime cholecalciferol (VITAMIN D3) 1,000 units tablet Indications: Vitamin D deficiency TAKE 1 TABLET BY MOUTH TWICE DAILY (MORNING AND EVENING) WITH MEALS 60 tablet 01/28/2022 ActiveStart: 01-28-2022 End: 47-73-2204ryxx 1 tablet by mouth in the morningcholecalciferol (Vitamin D- 3) 25 MCG (1000 UT) tablet Take 25 mcg by mouth in the morning. 0 01/28/2022 07/17/2023 Discontinued (Therapy completed)take 1 capsule by mouth once daily cholecalciferol (Vitamin D-3) 10 MCG (400 UNIT) capsule Take 400 Units by mouth Daily Activediclofenac potassium 50 mg oral tablet (20 sources)Nonsteroidal Anti-inflammatory DrugStart: 65-16-9600gbdw 1 tablet by mouth twice dailyStart: 02-29-2024 End: 85-03-6541webt 1 tablet by mouth in the morning, then take 1 tablet by mouth at bedtimediclofenac (CATAFLAM) 50 mg tablet Take 1 tablet (50 mg total) by mouth in the morning and 1 tablet(50 mg total) before bedtime. 180 tablet 02/05/2025 ActiveStart: 02-11-2020 End: 98-63-5398Sqchkntjbq Sodium 75 mg tablet,delayed release (/EC) Discontinued PO February 10, 2020 11:00pm February 11, 2020 12:25pmdoxycycline hyclate 100 mg oral capsule (3 sources)Tetracycline-class DrugStart: 83-46-1579frpv 1 capsule by mouth twice dailyDoxycycline Hyclate 100 mg capsule Active 100 MG PO Twice daily 20 April 21, 2025 12:00am Acute sinusitis Acute sinusitis, unspecified Complies with drug therapyStart: 01-06-2025 End: 32-54-2184ndby 1 tablet by mouth in the morningdoxycycline (Vibra-Tabs) 100 MG tablet Indications: URI, acute Take 1 tablet (100 mg) by mouth in the morning and 1 tablet (100 mg) before bedtime. Do all this for 7 days. Take with a full glass of water and do not lie down for at least 30 minutes after. 14 tablet 01/06/2025 01/06/2025 Discontinued(Entered in error)[id number] 0.3 ml EPINEPHrine 1 mg/ml auto-injector (20 sources)alpha-Adrenergic Agonist, beta-Adrenergic Agonist, Catecholamine Start: 55-01-4020Xmmlx: 23-33-6482BYZSVL 2-ELLIOT 0.3 mg/0.3 mL auto-injector 02/19/2016 ActiveEPINEPHrine (EpiPen 2-Elliot) 0.3 MG/0.3ML injection syringe Inject as directed 1 (one) time Activeergocalciferol 1.25 mg oral capsule (14 sources)Provitamin D2 CompoundStart: 08-23-2021 End: 34-37-7837rckm 1 capsule by mouth every weekergocalciferol (DRISDOL) 1,250 mcg (50,000 unit) capsule Indications: Vitamin D deficiency Take 1 capsule (50,000 Units total) by mouth once a week. For 6 weeks 6 capsule 08/23/2021 12/06/2024 Discontinued (Therapy completed)fexofenadine hydrochloride 180 mg oral tablet (16 sources)Histamine-1 Receptor AntagonistStart: 08-24-2022 End: 57-77-0308sgsa 1 tablet by mouth in the morningfexofenadine (BERNIE) 180 mg tablet Take 1 tablet (180 mg total) by mouth in the morning. 08/24/2022 12/06/2024 Discontinued (Therapy completed)FLUoxetine 10 mg oral capsule (20 sources)Serotonin Reuptake InhibitorStart: 36-41-8636bvsq 1 capsule by mouth once dailyStart: 10-04-2024 End: 84-52-1681abvp 1 capsule by mouth once dailyFLUoxetine (PROzac) 10 MG capsule Indications: Major depressive disorder with single episode, in full remission Take 1 capsule (10 mg) by mouth Daily 90 capsule 1 10/28/2024 Active Start: 01-24-2024 End: 37-27-9478mzoz 1 capsule by mouth once dailyFLUoxetine (PROzac) 10 MG capsule Indications: Major depressive disorder with single episode, in full remission (CMS/HCC) Take 1 capsule (10 mg) by mouth Daily 90 capsule 06/18/2024 ActiveStart: 02-11-2020 End: 95-06-4988mbwv 1 capsule by mouth once dailyFluoxetine 20 mg capsule Discontinued 20 MG PO Daily February 10, 2020 11:00pm February 23, 2025 12:53pmtake 1 capsule by mouth in the morningFLUoxetine (PROzac) 10 MG capsule Take 10 mg by mouth in the morning. 0 Activefluticasone propionate 0.05 mg/actuat metered dose nasal spray (20 sources)CorticosteroidStart: 87-25-0413kkmk 1 spray(s) nasal route once dailyStart: 01-20-2025 End: 69-44-1714rxvc 2 spray(s) nasal route once dailyfluticasone (Flonase) 50 MCG/ACT nasal spray Indications: Seasonal allergies Administer 2 sprays into each nostril Daily 16 g 3 01/20/2025 02/19/2025 ActiveStart: 02-22-2022 End: 61-13-2521qjqa 1 spray(s) nasal route once dailyfluticasone (Flonase) 50 MCG/ACT nasal spray Administer 1 spray into each nostril Daily 02/22/2022 0 01/20/2025 Discontinued (Reorder)Start: 57-62-9616atpa 1 spray(s) nasal route in the morningfluticasone (Flonase) 50 MCG/ACT nasal spray Administer 1 spray into each nostril in the morning. 02/22/2022 ActivehydroCHLOROthiazide 12.5 mg oral tablet (20 sources)Thiazide DiureticStart: 03-06-2024 End: 62-19-9525eaes 1 tablet by mouth once dailylidocaine 0.05 mg/mg medicated patch (3 sources)Antiarrhythmic, Amide Local AnestheticStart: 36-84-6876mnxnb 1 dose transdermal route once daily, then apply 1 dose transdermal route every twelve hourslidocaine (LIDODERM) 5 % Indications: Disorder of sacrum Place 1 patch on the skin daily. Remove & Discard patch within 12 hours or as directed by 30 patch 01/30/2024 Activemagnesium oxide 400 mg oral tablet (12 sources) End: 28-36-4282cewv 1 tablet by mouth in the morningmagnesium oxide (MAGOX) 400 mg tablet Take 1 tablet (400 mg total) by mouth in the morning. 12/06/2024 Discontinued (Therapy completed)melatonin 5 mg oral tablet (20 sources)Start: 84-42-5390wfwa 1 tablet by mouth once daily at bedtime as neededtake 2 tablets by mouth at bedtimemelatonin 5 MG tablet Take 10 mg by mouth at bedtime Activemeloxicam 15 mg oral tablet (20 sources)Nonsteroidal Anti-inflammatory DrugStart: 08-25-2022 End: 49-69-3655ftxj 1 tablet by mouth once dailymeloxicam (Mobic) 15 MG tablet Indications: Primary osteoarthritis of left hip , Primary osteoarthritis of right knee , Spinal stenosis of lumbar region with neurogenic claudication Take 1 tablet by mouth once daily 30 tablet 04/16/2024 Activemethocarbamol 500 mg oral tablet (6 sources)Muscle RelaxantStart: 07-08-2024 End: 87-78-2021fbzl 1 tablet by mouth three times dailymethocarbamoL (ROBAXIN) 500 mg tablet Take 1 tablet (500 mg total) by mouth 3 (three) times a day. 30 tablet 1 07/09/2024 12/06/2024 Discontinued (Therapy completed) methylPREDNISolone (7 sources)CorticosteroidStart: 01-20-2025 End: 55-65-1070jvdijnOXKHPYZnzfat (Medrol Dospak) 4 MG tablets Indications: Dizziness and giddiness Follow schedule on package instructions 21 tablet 01/20/2025 01/27/2025 ActiveStart: 01-20-2025 End: 91-70-5001kmivphELMZRXWrhpca (Medrol Dospak) 4 MG tablets Indications: Dizziness and giddiness Follow schedule on package instructions 21 tablet 01/20/2025 01/20/2025 Discontinued (Reorder)Start: 79-94-7229kwhhnzSTNAAMXlbmnr (MEDROL, ELLIOT,) 4 mg tablet Indications: Disorder of sacrum follow package directions 21 tablet 01/30/2024 Activepeg 3350-sod sulf,ejaw-lgd-lip 178.7-7.3-0.5 gram recon soln (1 source)Start: 12-06-2024 End: 71-52-6381msr 3350-sod sulf,blsd-sux-xjq 178.7-7.3-0.5 gram recon soln Indications: Rectal bleeding Take 1 kit by mouth in the morning for 1 dose. Please see instructional sheet given by physicians office. 1 each 12/06/2024 12/07/2024 Activephentermine hydrochloride 37.5 mg oral tablet (16 sources)Sympathomimetic Amine AnorecticStart: 01-24-2024 End: 04-11-4019bhuf 1 tablet by mouth before mealtimephentermine (Adipex-P) 37.5 MG tablet Indications: BMI 35.0-35.9,adult Take 1 tablet (37.5 mg) by mouth in the morning. Take before meals. 30 tablet 01/24/2024 03/06/2024 Discontinued (Side effects)predniSONE 20 mg oral tablet (2 sources)Start: 05-16-2024 End: 44-12-3461pqku 1 tablet by mouth once dailypredniSONE (Deltasone) 20 MG tablet Indications: Upper respiratory tract infection, unspecified type Take 1 tablet (20 mg) by mouth Daily for 5 days 5 tablet 05/16/2024 05/21/2024 Active traMADol hydrochloride 50 mg oral tablet (5 sources)Opioid AgonistStart: 07-08-2024 End: 52-50-7539tmfx 1 tablet by mouth every eight hours as neededtraMADoL (ULTRAM) 50 mg tablet Take 1 tablet (50 mg total) by mouth every 8 (eight) hours as needed. 07/08/2024 12/06/2024 Discontinued (Therapy completed)traZODone hydrochloride 50 mg oral tablet (20 sources)Serotonin Reuptake InhibitorStart: 02-11-2020 End: 00-73-1415ekon 1 tablet by mouth once daily Completed/Discontinued Medications MedicationDrug Class(es)DatesSig (Normalized)Sig (Original)aspirin 81 mg delayed release oral tablet (2 sources)Platelet Aggregation Inhibitor, Nonsteroidal Anti-inflammatory Drug Start: 08-06-2021 End: 87-35-7489lmiqpym 81 mg Indications: Primary osteoarthritis of right knee Take 1 tablet (81 mg total) by mouth 2 (two) times a day. To begin taking day one following your joint replacement 60 tablet Discontinued (Ineffective)azithromycin 250 mg oral tablet (14 sources)Macrolide AntimicrobialStart: 01-06-2025 End: 26-82-0907yolnhoobzkjv (Zithromax Z-Elliot) 250 MG tablet Indications: Sinusitis, unspecified chronicity, unspecified location As directed 6 tablet 01/06/2025 01/20/2025 Discontinued (Therapy completed)Start: 08-21-2024 End: 68-89-7336ezcnjpcdwqcu (Zithromax) 250 MG tablet Indications: Subacute sinusitis, unspecified location 2 pills day #1, 1 pill day #2-#5 6 tablet 08/21/2024 11/21/2024 Discontinued (Therapy completed)Start: 05-16-2024 End: 72-35-3070micu 1 tablet by mouth once dailyazithromycin (Zithromax) 500 MG tablet Indications: Upper respiratory tract infection, unspecified type Take 1 tablet (500 mg) by mouth Daily for 3 days 3 tablet 05/16/2024 05/19/2024 Active Start: 07-17-2023 End: 30-14-2401gdphqydwazde (Zithromax) 250 MG tablet Indications: URTI (acute upper respiratory infection) Take 1tablet (250 mg) by mouth in the morning for 5 days. Take 2 pills on day 1, take 1 pill from day 2-5. 6 tablet 0 07/17/2023 07/22/2023 Activebaclofen 10 mg oral tablet (6 sources)gamma-Aminobutyric Acid-ergic AgonistStart: 01-30-2024 End: 29-32-0026erbi 0.5 tablet by mouth three times dailybaclofen (LIORESAL) 10 mg tablet Indications: Disorder of sacrum Take 0.5 tablets (5 mg total) by mouth 3 (three) times a day. 90 tablet 01/30/2024 07/09/2024 Discontinuedmeclizine hydrochloride 25 mg oral tablet (6 sources)AntiemeticStart: 02-23-2025 End: 23-73-2251vehv 1 tablet by mouth three times dailyMeclizine 25 mg tablet Discontinued 25 MG PO Three times daily February 22, 2025 11:00pm February 25, 2025 8:22amStart: 48-65-6572jken 1 tablet by mouth three times daily as needed for dizzinessmeclizine (ANTIVERT) 25 mg tablet Take 1 tablet (25 mg total) by mouth 3 (three) times a day as needed for dizziness. 20 tablet 01/16/2025 Xxhpyn06 hr nicotine 0.875 mg/hr transdermal system (2 sources)Cholinergic Nicotinic AgonistStart: 03-15-2023 End: 66-89-7937ixgwsola (NICODERM CQ) 21 mg/24 hr 03/15/2023 10/03/2023 Discontinued (Ineffective)Start: 78-15-0368zlgdv 1 dose transdermal route every twenty-four hoursnicotine (NICODERM CQ) 21 mg/24 hr APPLY 1 PATCH TOPICALLY EVERY 24 HOURS 0 03/15/2023 Activepantoprazole 40 mg delayed release oral tablet (2 sources)Proton Pump InhibitorStart: 02-11-2020 End: 93-93-0847Qmtsjeeogvtg 40 mg tablet,delayed release (DR/EC) Discontinued 40 MG PO As Directed February 10, 2020 11:00pm February 23, 2025 12:54pm sucralfate 1000 mg oral tablet (2 sources)Aluminum ComplexStart: 02-11-2020 End: 38-43-4132hztr 1 tablet by mouth four times dailySucralfate 1 gram tablet Discontinued 1 GM PO Four times daily February 10, 2020 11:00pm February 23, 2025 12:54pm Problems Active Problems Problem ClassificationProblemDateDocumented DateEpisodic/ChronicChronic obstructive pulmonary disease and bronchiectasis (11 sources)Centriacinar emphysema; Translations: [Centrilobular emphysema] Onset: 807854-39-7898NbkhsjwVsyzwsnjpj associated with dizziness or vertigo (12 sources)Dizziness and giddiness; Translations: [Dizziness]Onset: 01-16-2025 21-73-8606UbhxzvgbRwrkligyz of lipid metabolism (20 sources)Hyperlipidemia, unspecified; Translations: [Hyperlipidemia]Onset: 03-19-2018 Resolved: 30-47-1826HxehffhWdcahfzlc hypertension (20 sources)Essential hypertension; Translations: [Essential (primary) hypertension]Onset: 749913-22-3471GylsfpqGwierlzbbghbflns hemorrhage (2 sources)Rectal hemorrhage; Translations: [Hemorrhage of anus and rectum] Onset: 144655-29-4865IrgigijsVsacpoissagog mental health disorders (20 sources)Primary insomnia; Translations: [Primary insomnia]Onset: 08-21-2024 98-07-3304MryqdkqCdgx disorders (20 sources)Single episode of major depression in full remission; Translations: [Major depressive disorder, single episode, in full remission]Onset: 07-17-2023 35-97-9503YcsxnrqQgqibtjkdblfaq (20 sources)Osteoarthritis of left hip joint; Translations: [Unilateral primary osteoarthritis, left hip]Onset: 154632-16-5629AbilbluKkkwghiukxru (20 sources)Osteoporosis; Translations: [Age-related osteoporosis without current pathological fracture]Onset: 350111-20-9178HafqahjBcwau bone disease and musculoskeletal deformities (3 sources)Osteopenia; Translations: [Other specified disorders of bone density and structure, unspecified site]14-57-4172JverdssvAnzfi connective tissue disease (20 sources)History of total knee arthroplasty; Translations: [Presence of right artificial knee joint]Onset: 954095-05-8284HwktfntMalxn liver diseases (20 sources)Alkaline phosphatase raised; Translations: [Abnormal levels of other serum enzymes]Onset: 299308-25-5464NodayfdjEbsrq nutritional; endocrine; and metabolic disorders (20 sources)Body mass index 30+ - obesity; Translations: [Body mass index (BMI) 35.0-35.9, adult]Onset: 609802-05-4589MpfesjeYlrtk nutritional; endocrine; and metabolic disorders (20 sources)Obesity caused by energy imbalance; Translations: [Class 1 obesity due to excess calories without serious comorbidity in adult]Onset: 08-21-2024 21-83-1087QpgumlhTxrha nutritional; endocrine; and metabolic disorders (6 sources)Dksrh-5-emoajlerpoe deficiency; Translations: [Mpxje-7-velmlsvzgfi deficiency]Onset: 203594-81-1798QetkcsvAeitp screening for suspected conditions (not mental disorders or infectious disease) (20 sources)Patient encounter status; Translations: [Encounter for screening for malignant neoplasm of colon]Onset: 954220-58-7853JzdlzjwyVtobk skin disorders (2 sources)Seborrheic keratosis; Translations: [Other seborrheic keratosis] 17-71-6819FbparswkCjtji skin disorders (2 sources)Inflamed seborrheic keratosis; Translations: [Inflamed seborrheic keratosis]15-31-0895IercyysjZdgxz upper respiratory disease (20 sources)Seasonal allergy; Translations: [Other seasonal allergic rhinitis] 99-39-0353WlwzlwuHdebr upper respiratory infections (20 sources)Sinusitis; Translations: [Chronic sinusitis, unspecified]Onset: 376071-04-3080PkirwcxQzaxr upper respiratory infections (20 sources)Acute upper respiratory infection; Translations: [Acute upper respiratory infection, unspecified]Onset: 07-17-2023 Resolved: 402730-64-4663OnhrhkusMadvvlrg codes; unclassified (20 sources)Obstructive sleep apnea syndrome; Translations: [Obstructive sleep apnea (adult) (pediatric)]Onset: 719106-32-2927NryxlhiOsgfxvqk codes; unclassified (2 sources)Postmenopausal state; Translations: [Asymptomatic menopausal state] 28-36-5527IculmqpyRnlfpopgsko; intervertebral disc disorders; other back problems (5 sources)Other intervertebral disc degeneration, lumbar region; Translations: [Lumbosacral spondylosis without myelopathy]Onset: hronic Spondylosis; intervertebral disc disorders; other back problems (20 sources)Spinal stenosis of lumbar region; Translations: [Spinal stenosis, lumbar region with neurogenic claudication]Onset: 587030-34-0317Bvdmfpnq Substance-related disorders (20 sources)Tobacco dependence caused by cigarettes; Translations: [Nicotine dependence, cigarettes, uncomplicated]Onset: 259399-67-4472TuwfkfmNmqujwg disorders (1 source)Congenital hypothyroidism with diffuse goiter; Translations: [CONGEN HYPOTHYROIDISM W/DIF GOITER]Onset: 04-63-5170MnkiwasHnrjzpzjimib (3 sources)LOW BACK PAIN, UNSPECIFIED; Translations: [LOW BACK PAIN, UNSPECIFIED]Onset: 63-96-8210Rtpxfrxjewlc (3 sources)Patient encounter status; Translations: [Colon Cancer Screening] Onset: 486761-71-7234Uvantesdekbw (2 sources)Autogenerated ProblemOnset: 214240-10-5763Uoqxfiwjcwad (1 source)E66.811 - Obesity, class 1,E66.09 - Other obesity due to excess calories Past or Other Problems Problem ClassificationProblemDateDocumented DateEpisodic/ChronicAbdominal pain (17 sources)Right flank pain; Translations: [Unspecified abdominal pain]Onset: 770028-69-8724AmplilatGcimwjnt mellitus without complication (1 source)Other abnormal glucose; Translations: [OTHER ABNORMAL GLUCOSE]Onset: 58-86-4822UkrceaqzDptjopwumifmw symptoms and ill-defined conditions (17 sources)Blood in urine; Translations: [Hematuria, unspecified]Onset: 123660-82-3625InvkxqfmJabbg lower respiratory disease (20 sources)Respiratory tract infection; Translations: [Other specified respiratory disorders]Onset: 10-04-2023 Resolved: 898094-50-0857XakqmmxhBgupe non-traumatic joint disorders (1 source)Hip painOnset: 14-72-3483IjuxjwijIezbl skin disorders (20 sources)Pigmented skin lesion ; Translations: [Disorder of pigmentation, unspecified]Onset: 628346-49-8885BjmtznowCxtrnp media and related conditions (20 sources)Acute suppurative otitis media without spontaneous rupture of ear drum; Translations: [Acute suppurative otitis media without spontaneous rupture of ear drum, bilateral]Onset: 10-04-2023 Resolved: 513884-82-9426AhsnzhmcBgfkdvcb codes; unclassified (20 sources)Hypersomnia with sleep apnea; Translations: [Hypersomnia, unspecified]Onset: 07-17-2023 Resolved: 486352-07-7939FghuohaXtfkdflb codes; unclassified (20 sources)Sleep apnea; Translations: [Sleep apnea, unspecified]Onset: 03-19-2018 Resolved: 492264-59-7742TxjniihBvseamtu codes; unclassified (20 sources)Tobacco user; Translations: [Tobacco use]Onset: 07-17-2023 Resolved: 986570-94-7996JrtvkwzcZzkkqnrzhnoj (1 source)LOW BACK PAIN, UNSPECIFIED; Translations: [LOW BACK PAIN, UNSPECIFIED] Onset: 05-25-2022 Results Test NameValueInterpretationReference RangeFacilityMM TOMOSYNTHESIS SCREENING BI [place] 45[place], [place] [address] Mammography Report Signed Patient: CRISTOFER HEATH MR#: [id number] : 1960 Acct:[id number] Age/Sex: 64 / F ADM Date: 02/03/25 Loc: RAD Attending Dr: Alexis Rubalcava D.O. Ordering Physician: Alexis Rubalcava D.O. Results: Date of Service: 02/03/25 Follow Up: Procedure(s): MM tomosynthesis screening BI Accession Number(s): [id number] cc: Estefany Garcia NP; Alexis Rubalcava D.O. Patient Name: CRISTOFER HEATH MR#: [id number] : 1960 Exam Date: 02/03/2025 Ordering Doctor: DR ALEXIS RUBALCAVA . RADIOLOGY REPORT PROCEDURE: MM TOMOSYNTHESIS SCREENING BI COMPARISON: MM TOMOSYNTHESIS SCREENING BI, 01/29/2024. MM DIAGNOSTIC MAMMO BI, 02/15/2023. MM TOMOSYNTHESIS SCREENING BI, 01/25/2023. MAMMO PURVI SCREEN, 01/01/2014. INDICATIONS: Screening for malignant neoplasm Calculator Name NCI Breast Cancer Risk Assessment Tool 5 Year Breast Cancer Risk 1.60% Lifetime Breast Cancer Risk 6.80% Personal Breast Cancer No Personal Ovarian Cancer No Treatments None Family Cancers Mother with bladder cancer at age 72. LOCATION: [facility] BREAST COMPOSITION: There are scattered areas of fibroglandular density. FINDINGS: DIAGNOSTIC CATEGORY 1--NEGATIVE. RIGHT BREAST: No significant suspicious finding. LEFT BREAST: No significant suspicious finding. RECOMMENDATIONS: ROUTINE MAMMOGRAM AND CLINICAL EVALUATION IN 12 MONTHS. Dictated by: Rd Rodrigues DO on 02/03/2025 at 15:49 Approved by: Rd Rodrigues DO on 02/03/2025 at 15:49 Dictated By: Rd Rodrigues M.D. Signed By: 02/03/25 1551 DD/ 1550 TD/TT: Grill Attendant:TBHRadiology, Radiologist, MD - 02/03/2025 [place] [address] Mammography Report Signed Patient: CRISTOFER HEATH MR#: [id number] : 1960 Acct:[id number] Age/Sex: 64 / F ADM Date: 02/03/25 Loc: RAD Attending Dr: Alexis Rubalcava D.O. Ordering Physician: Alexis Rubalcava D.O. Results: Date of Service: 02/03/25 Follow Up: Procedure(s): MM tomosynthesis screening BI Accession Number(s): [id number] cc: Estefany Garcia NP; Alexis Rubalcava D.O. Patient Name: CRISTOFER HEATH MR#: [id number] : 1960 Exam Date: 02/03/2025 Ordering Doctor: DR ALEXIS RUBALCAVA . RADIOLOGY REPORT PROCEDURE: MM TOMOSYNTHESIS SCREENING BI COMPARISON: MM TOMOSYNTHESIS SCREENING BI, 01/29/2024. MM DIAGNOSTIC MAMMO BI, 02/15/2023. MM TOMOSYNTHESIS SCREENING BI, 01/25/2023. MAMMO PURVI SCREEN, 01/01/2014. INDICATIONS: Screening for malignant neoplasm Calculator Name NCI Breast Cancer Risk Assessment Tool 5 Year Breast Cancer Risk 1.60% Lifetime Breast Cancer Risk 6.80% Personal Breast Cancer No Personal Ovarian Cancer No Treatments None Family Cancers Mother with bladder cancer at age 72. LOCATION: [facility] BREAST COMPOSITION: There are scattered areas of fibroglandular density. FINDINGS: DIAGNOSTIC CATEGORY 1--NEGATIVE. RIGHT BREAST: No significant suspicious finding. LEFT BREAST: No significant suspicious finding. RECOMMENDATIONS: ROUTINE MAMMOGRAM AND CLINICAL EVALUATION IN 12 MONTHS. Dictated by: Rd Rodrigues DO on 02/03/2025 at 15:49 Approved by: Rd Rodrigues DO on 02/03/2025 at 15:49 Dictated By: Rd Rodrigues M.D. Signed By: 02/03/25 1551 DD/ 1550 TD/TT: Grill Attendant: [place] HealthcareRadiology Study observation (narrative)[facility] TOMOSYNTHESIS SCREENING BIOrdered By: Radiologist Radiology on 44-22-2802[facility] Work Phone: [place] [phone] Coag (Bld) [Time]26 nUyjxxg24-70 [facility] HospitalComment on above:Performed By: #### PTT #### [facility] ([facility]) [address] [place] [address]. [place] [address] VIRB-TYPE NATRIURETIC PEPTIDEon 02-89-0960Auwplaojqul peptide B (Bld) [Mass/Vol]26 pg/mLNormal<=100Pro[facility] HospitalComment on above: Performed By: #### BNP #### [address] [address] VIRCBC WITH AUTO DIFFERENTIALon 87-08-2891KPXBVHXJE ABSOLUTE COUNT (10*3/UL) BY AUTOMATED COUNT0.1 10*3/uLNormal0.0-0.2ProMedKaiser Foundation HospitalComment on above:Performed By: #### CBCA #### [address] [address] VIRBASOPHILS RELATIVE PERCENT BY AUTOMATED COUNT0.9 %Normal [facility] HospitalComment on above:Performed By: #### CBCA #### [address] [address] VIRCELLAVISION DIFFERENTIAL TYPEAUTOMATED DIFFERENTIALNormal [facility] HospitalComment on above:Performed By: #### CBCA #### [address] [address] VIREosinophils (Bld) [#/Vol]0.1 10*3/uLNormal0.0-0.4Pro[facility] HospitalComment on above:Performed By: #### CBCA #### [address] [address] VIREOSINOPHILS RELATIVE PERCENT BY AUTOMATED COUNT1.0 %Normal [facility] HospitalComment on above:Performed By: #### CBCA #### [address] [address] VIRErythrocyte distribution width (RBC) [Ratio]14.5 %Normal 11.5-15Pro[facility] HospitalComment on above:Performed By: #### CBCA #### [facility] ([address] [address] VIRHematocrit (Bld) [Volume fraction]43.6 %Jtixmu72-80 [facility] HospitalComment on above:Performed By: #### CBCA #### [facility] ([address] [address] VIRHemoglobin (Bld) [Mass/Vol]14.8 g/eNIhwupz63.7-15.5 [facility] HospitalComment on above:Performed By: #### CBCA #### [facility] ([address] [address] VIRLYMPHOCYTES ABSOLUTE COUNT (10*3/UL) BY AUTOMATED COUNT1.7 10*3/uLNormal1.0-3.5PSelect Medical Specialty Hospital - ColumbusComment on above:Performed By: #### CBCA #### [facility] ([address] [address] VIRLYMPHOCYTES RELATIVE PERCENT BY AUTOMATED COUNT23.2 %Normal [facility] HospitalComment on above:Performed By: #### CBCA #### [facility] ([address] [address] VIRMCH (RBC) [Entitic mass]30.2 msCfdbwy91-69IisIdzpipUt Health East Texas Carthage HospitalComment on above:Performed By: #### CBCA #### [facility] ([address] [address] VIRMCHC (RBC) [Mass/Vol]33.9 g/hGKpyrpg94-38DyiBhgvjvUt Health East Texas Carthage HospitalComment on above:Performed By: #### CBCA #### [facility] ([address] [address] VIRMCV (RBC) [Entitic vol]89 hCBcojfb95-072VbqPmmiak [facility] HospitalComment on above:Performed By: #### CBCA #### [facility] ([facility]) [address] [place] [address]. [place] [address] VIRMONOCYTES ABSOLUTE COUNT (10*3/UL) BY AUTOMATED COUNT0.4 10*3/uLNormal0.0-0.9[facility] HospitalComment on above:Performed By: #### CBCA #### [facility] ([address] [place] [address] VIRMONOCYTES RELATIVE PERCENT BY AUTOMATED COUNT4.9 %Normal [facility] HospitalComment on above:Performed By: #### CBCA #### [facility] ([address] [place] [address] VIRNEUTROPHILS ABSOLUTE COUNT BY AUTOMATED COUNT5.1 10*3/uL Normal1.5-6.6[facility] HospitalComment on above:Performed By: #### CBCA #### [facility] ([address] [address] VIRNEUTROPHILS RELATIVE PERCENT BY AUTOMATED COUNT70.0 %Normal [facility] HospitalComment on above:Performed By: #### CBCA #### [facility] ([address] [place] [address] VIRPlatelet mean volume (Bld) [Entitic vol]6.8 fLLow7-12 [facility] HospitalComment on above:Performed By: #### CBCA #### [facility] ([address] [place] [address] VIRPlatelets (Bld) [#/Vol]387 10*3/kSMydknf569-421HzdMkoecr [facility] HospitalComment on above:Performed By: #### CBCA #### [facility] ([address] [place] [address] VIRRBC COUNT4.89 X10E12/LNormal3.8-5.2PSelect Medical Specialty Hospital - ColumbusComment on above:Performed By: #### CBCA #### [facility] ([facility]) [facility] [place] [address] VIRWBC (Bld) [#/Vol]7.2 10*3/uLNormal4-11Pro[facility] HospitalComment on above:Performed By: #### CBCA #### [facility] ([place] [address] [place] [address] VIRCOMPREHENSIVE METABOLIC PANELon 40-74-3356Fswvluf [Mass/Vol]4.3 g/dLNormal3.2-5.3PSelect Medical Specialty Hospital - ColumbusComment on above: Performed By: #### CMP #### [facility] ([facility]) [facility] [place] [address] VIRALP [Catalytic activity/Vol]126 U/UUiolnn27-507TxiPyfqljUt Health East Texas Carthage HospitalComment on above:Performed By: #### CMP #### [facility] ([address] [place] [address] VIRALT [Catalytic activity/Vol]18 U/LNormal<=31PSelect Medical Specialty Hospital - ColumbusComment on above:Performed By: #### CMP #### [facility] ([address] [place] [address] VIRAnion gap [Moles/Vol]6 mmol/LNormal5-15Pro[facility] HospitalComment on above:Performed By: #### CMP #### [facility] ([place] [address] [place] [address] VIRAST [Catalytic activity/Vol]21 U/LNormal<=41Pro[facility] HospitalComment on above:Performed By: #### CMP #### [facility] ([place] [address] [place] [address] VIRBilirubin [Mass/Vol]0.1 mg/dLLow0.3-1.2PSelect Medical Specialty Hospital - ColumbusComment on above:Performed By: #### CMP #### [facility] ([address] [place] [address] VIRCalcium [Mass/Vol]8.9 mg/dLNormal8.5-10.5PSelect Medical Specialty Hospital - ColumbusComment on above:Performed By: #### CMP #### [facility] ([address] [place] [address] VIRChloride [Moles/Vol]108 mmol/HCdpedt80-642RksOljtddUt Health East Texas Carthage HospitalComment on above:Performed By: #### CMP #### [facility] ([address] [place] [address] VIRCO2 [Moles/Vol]23 mmol/FVxflci01-52JktCdnljiSelect Medical Specialty Hospital - ColumbusComment on above:Performed By: #### CMP #### [facility] ([address] [place] [address] VIRCreatinine [Mass/Vol]0.66 mg/dLNormal0.40-1.00Pro[facility] Carth[facility] HospitalComment on above:Result Comment: METHOD TRACEABLE TO IDMS STANDARDPerformed By: #### CMP #### [facility] ([address] [place] [address] VIREGFR (CKD-EPI) NON-RACE DEPENDENT>^90Normal>=60Pro[facility] Carth[facility] HospitalComment on above:Result Comment: eGFR not reported due to non- numeric value for Creatinine. Reported eGFR is based on the CKD-EPI 2021 equation that does not use a race coefficient.Performed By: #### CMP #### [facility] ([address] [place] [address] VIRGlucose [Mass/Vol]110 mg/qUSjvm60-66ChpLqhzauUt Health East Texas Carthage HospitalComment on above:Performed By: #### CMP #### [facility] ([address] [place] [address] VIRPotassium [Moles/Vol]4.2 mmol/LNormal3.5-5.0Pro[facility] HospitalComment on above:Performed By: #### CMP #### [facility] ([facility]) [address] [place] [address] [place] [address] VIRProtein [Mass/Vol]6.9 g/dLNormal6.0-8.0Pro[facility] HospitalComment on above:Performed By: #### CMP #### [facility] ([facility]) [address] [place] [address] [place] [address] VIRSodium [Moles/Vol]137 mmol/WMwwbei108-885FggQdrgcw [facility] HospitalComment on above:Performed By: #### CMP #### [facility] ([facility]) [address] [place] [address] [place] [address] VIRUrea nitrogen [Mass/Vol]20 mg/dLNormal5-27Pro[facility] HospitalComment on above:Performed By: #### CMP #### [facility] ([facility]) [address] [place] [address] [place] [address] VIRCT BRAIN WO CONTon 51-10-0228RD BRAIN WO CONTCT BRAIN WO CONT CT BRAIN WO CONT HISTORY: Dizziness COMPARISON: None TECHNIQUE: CT brain obtained without intravenous contrast. Automated exposure control was utilized.All CT scans at this facility use dose modulation, iterative reconstruction, and/or weight based dosing when appropriate to reduce radiation dose to as low as reasonably achievable. FINDINGS: No midline shift, mass effect, acute intracranial hemorrhage, or evidence of acute large vessel ischemia/infarct. The cerebral volume, ventricles, cisterns, and sulci are normal for patient age. Hypoattenuation inthe periventricular white matter, likely related to chronic microvascular ischemic disease. Brainstem and cerebellum are unremarkable. Visualized intraorbital contents and the infratemporal soft tissues show no acute abnormality. The visualized paranasal sinuses and mastoid air cells are well-aerated. Osseous structures in skull base and calvarium show no acute abnormality. IMPRESSION: No acute intracranial abnormality by CT. Finalized by Tan Winter MD on 01/16/2025 11:24 AMNormalProUt Health East Texas Carthage HospitalD-DIMERon 01-16-2025D HHIXN269 ug/mLNormal1-255[facility] HospitalComment on above:Result Comment: Results <255 ng/mL DDU: The presensence of a VTE can safely be excluded with a negative D-Dimer result and Wells score. A negative result doesn't exclude the possibility of DIC. The test should be repeated along with other diagnostic tests if the patient's symptoms persist or worsen.Performed By: #### DDMR #### [facility] ([address] [address] VIRMAGNESIUMon 34-43-6805Qokzlhzwt [Mass/Vol]2.2 mg/dLNormal 1.8-2.6[facility] HospitalComment on above:Performed By: #### MG #### [facility] ([address] [address] VIRPOCT NURSING URINE MACROSCOPIC UAon 69-17-9600VLXZOAXAA LARRY NegativeNormalNegNewark HospitalComment on above:Performed By: #### CBCA #### [facility] ([address] [address] VIRBLOOD/HGB NURNegativeNounc health lenoirNegNewark HospitalComment on above:Performed By: #### CBCA #### [facility] ([address] [address] VIRGLUCOSE NURNegativeNoalNegNewark Hospital Comment on above:Performed By: #### CBCA #### [facility] ([address] [address] VIRKETONES NURNegativeNounc health lenoirNegNewark Hospital Comment on above:Performed By: #### CBCA #### [facility] ([address] [address] VIRLEUKOCYTE ESTERASE NURNegativeNormalNegativeCincinnati Shriners HospitalComment on above:Performed By: #### CBCA #### [facility] ([address] [place] [address] VIRNITRITE NURNegativeNormflNegativeCincinnati Shriners Hospital Comment on above:Performed By: #### CBCA #### [facility] ([address] [place] [address] VIRPH NUR7.3Nqnemr4.0, 6.0, 6.5, 7.0, 7.5, 8.0, 8.5, 5.5 [facility] HospitalComment on above:Performed By: #### CBCA #### [facility] ([address] [address] VIRPROTEIN NURNegativeNoalNegativeCincinnati Shriners Hospital Comment on above:Performed By: #### CBCA #### [facility] ([address] [address] VIRSPECIFIC GRAVITY NUR1.707Qytgoy1.010, 1.015, 1.020, 1.025 [facility] HospitalComment on above:Performed By: #### CBCA #### [facility] ([address] [place] [address] VIRUROBILINOGEN NUR0.2 E.U./dLNormalCincinnati Shriners Hospital Comment on above:Performed By: #### CBCA #### [facility] ([address] [place] [address] VIRPROTIME AND INRon 87-05-7367FOY9.8Zgceol2.9-1.2ProMedica Seton Medical CenterComment on above:Performed By: #### PINR #### [facility] ([address] [place] [address] VIRPT Coag (PPP) [Time]10.4 sNormal9.8-13.2ProMedica Seton Medical CenterComment on above:Performed By: #### PINR #### [facility] ([facility]) [address] [place] [address] VIRTROP I, HIGH SENSITIVITY 1 HOURon 42-30-3164WTNXJAAB I, HIGH SENSITIVITY3 ng/LNormal<16[facility] HospitalComment on above: Performed By: #### CBCA #### [facility] ([facility]) [address] [place] [address] VIRTROPONIN I, HIGH SENSITIVITY 0 HOURon 83-19-1566YDOHOSPB I, HIGH SENSITIVITY2 ng/LNormal<16ProGalion Hospitalca Seton Medical CenterComment on above: Performed By: #### TNIHS0 #### [facility] ([address] [address] VIRIGP,APTIMA HPV,AGE GDLNon 28-14-1520TTY GDLN ACOG TESTING Note.NOMS HealthcareComment on above:TESTS RESULT FLAG UNITS REF RANGE LAB Clinician Provided Cytology Information Source.............Vagina No. of containers..01 ThinPrep Vial Age Algo ACOG Johanna... FLAG LEGEND: L-Low Normal,H-High Normal,LL-Alert Low,HH-Alert High <-Panic Low,>-Panic High,A-Abnormal,AA-Critical Abnormal Performed at: 01 =[address] [place] [address] Michelle Kelsey MD, HPV APTIMANegativeNegativeNOMS HealthcareComment on above:This nucleic acid amplification test detects fourteen high- risk HPV types (16,18,31,33,35,39,45,51,52,56,58,59,66,68) without differentiation. Performed at: =[address], [place] [id number] Rewinder Operator: Michelle Kelsey MD, Phone: [phone] Performed at: [address], [place] [id number] Rewinder Operator: Michelle Kelsey MD, Phone: [phone] IGP, APTIMA HPV, RFX 16/18,45Note.NOMS HealthcareComment on above:TESTS RESULT FLAG UNITS REF RANGE LAB DIAGNOSIS: 02 NEGATIVE FOR INTRAEPITHELIAL LESION OR MALIGNANCY. THIS SPECIMEN WAS RESCREENED PART OF OUR PLATE WORKER HELPER PROGRAM. Specimen adequacy: 02 Satisfactory for evaluation. Performed by: 02 Preet Claire, Aluminum Can Collector (ASCP) QC reviewed by: 02 Janis Garcia, Aluminum Can Collector (ASCP) . 02 Note: Note 02 The Pap smear is a screening test designed to aid in the detection of premalignant and malignant conditions of the uterine cervix. It is not a diagnostic procedure and should not be used as the sole means of detecting cervical cancer. Both false-positive and false-negative reports do occur. Test Methodology: Note 02 This liquid based ThinPrep(R) pap test was screened with the use of an image guided system. HPV Genotype Reflex Note 02 Criteria not met, HPV Genotype not performed. FLAG LEGEND: L-Low Normal,H-High Normal,LL-Alert Low,HH-Alert High <-Panic Low,>-Panic High,A-Abnormal,AA-Critical Abnormal Performed at: [address] [facility] [address] Michelle Kelsey MD, [facility] CLINISYNCNOMS HealthcareNo Panel Informationon 54-96-4393HFGR HealthcareALL GAMMA GLUTAMYL TRANSPEPTIDASEon 13-92-1457Mgnimyl [Catalytic activity/Vol]34 U/L 8 - 55 U/LNOMS HealthcareHMHP LIVER PANELon 01-15-3861Pjwrhpn [Mass/Vol]3.7 g/dL 3.4 - 5.0 g/dLNOMS HealthcareALBUMIN GLOBULIN RATIO1.2NOMS HealthcareALP [Catalytic activity/Vol]116 U/L46 - 116 U/LNOMS HealthcareALT [Catalytic activity/Vol]21 U/L14 - 59 U/LNOMS HealthcareAST [Catalytic activity/Vol]13 U/L Low15 - 37 U/LNOMS HealthcareBilirubin [Mass/Vol]0.4 mg/dL0.2 - 1.0 mg/dLNOMS HealthcareBilirubin.indirect [Mass/Vol]0.1 mg/dL0.0 - 0.2 mg/dLNOMS Healthcare Globulin (S) [Mass/Vol]3 g/dLNOMS HealthcareInterpretation and review of laboratory resultsAbnormalNOMS HealthcareProtein [Mass/Vol]6.7 g/dL6.4 - 8.2 g/dLNOMS HealthcareNo Panel Informationon 96-09-8904KESLRWFJZZQFG HealthcareXR HIP LT 2-3 VIEWS W OR WO PELVISon 87-28-0516AL HIP LT 2-3 VIEWS W OR WO PELVISXR HIP LT 2-3 VIEWS W OR WO [...] by Ernst Mackenzie MD on 07/10/2024 10:39 [facility] TOMOSYNTHESIS SCREENING BIon 89-96-5920[place], [place] [address] Mammography Report Signed Patient: CRISTOFER HEATH MR#: [id number] : 1960 Acct:[id number] Age/Sex: 63 / F ADM Date: 01/29/24 Loc: MAMMO Attending Dr: Alexis Rubalcava D.O. Ordering Physician: Alexis Rubalcava D.O. Results: Date of Service: 01/29/24 Follow Up: Procedure(s): MM tomosynthesis screening BI Accession Number(s): [id number] cc: Shaikh Ry Hahn; Alexis Rubalcava D.O. Patient Name: CRISTOFER HEATH MR#: [id number] : 1960 Exam Date: 01/29/2024 Ordering Doctor: DR ALEXIS RUBALCAVA . RADIOLOGY REPORT PROCEDURE: MM TOMOSYNTHESIS SCREENING BI COMPARISON: MM TOMOSYNTHESIS SCREENING BI, 01/25/2023. MM DIAGNOSTIC MAMMO BI, 02/15/2023. INDICATIONS: Screening Calculator Name NCI Breast Cancer Risk Assessment Tool 5 Year Breast Cancer Risk 1.50% Lifetime Breast Cancer Risk 7.00% Personal Breast Cancer No Personal Ovarian Cancer No Treatments None Family Cancers Mother with bladder cancer at age 72. LOCATION: [facility] BREAST COMPOSITION: There are scattered areas of [...] Signed By: 01/29/24 1114 DD/ 1113 TD/TT: Grill Attendant:TBHRadiology, Radiologist, - 01/29/2024 [place] [address] Mammography Report Signed Patient: CRISTOFER HEATH MR#: [id number] : 1960 Acct:[id number] Age/Sex: 63 / F ADM Date: 01/29/24 Loc: MAMMO Attending Dr: Alexis Rubalcava D.O. Ordering Physician: Alexis Rubalcava D.O. Results: Date of Service: 01/29/24 Follow Up: Procedure(s): MM tomosynthesis screening BI Accession Number(s): [id number] cc: Shaikh Ry Hahn; Alexis Rubalcava D.O. Patient Name: CRISTOFER HEATH MR#: [id number] : 1960 Exam Date: 01/29/2024 Ordering Doctor: DR ALEXIS RUBALCAVA . RADIOLOGY REPORT PROCEDURE: MM TOMOSYNTHESIS SCREENING BI COMPARISON: MM TOMOSYNTHESIS SCREENING BI, 01/25/2023. MM DIAGNOSTIC MAMMO BI, 02/15/2023. INDICATIONS: Screening Calculator Name NCI Breast Cancer Risk Assessment Tool 5 Year Breast Cancer Risk 1.50% Lifetime Breast Cancer Risk 7.00% Personal Breast Cancer No Personal Ovarian Cancer No Treatments None Family Cancers Mother with bladder cancer at age 72. LOCATION: [facility] BREAST COMPOSITION: There are scattered areas of [...] Signed By: 01/29/24 1114 DD/ 1113 TD/TT: Grill Attendant: [facility] HospitalRadiology Study observation (narrative)[facility] TOMOSYNTHESIS SCREENING BIOrdered By: Radiologist Radiology on 29-63-0900SRPV Fliqz Work Phone: XR LSPINE MIN 4 VIEWSon 74-95-7188FV LSPINE MIN 4 VIEWSEXAMINATION: XR LSPINE MIN 4 VIEWS HISTORY: Low [...] not visibly changed. Electronically authenticated by: CHETNA VIRK Date: 2022-05-25 23:28[facility] AUTO DIFFon 31-90-4535VNHM #0.0 103/ulNormal0.0-0.1The [facility] HospitalComment on above:Performed By: #### CBC #### [facility] [address] [address] [address] Mary SolanoBasophils/100 WBC (Bld)0.6 %Normal0.2-2.0[facility] Comment on above:Performed By: #### CBC #### [facility] [address] [place] [address] Dr. Mary Louis #0.1 103/ulNormal0.0-0.7The [facility] HospitalComment on above: Performed By: #### CBC #### [facility] [address] [place] [address] Dr. Mary Andinoosinophils/100 WBC (Bld)1.9 %Normal0.9-7.0[facility] Comment on above:Performed By: #### CBC #### [facility] [address] [place] [address] Dr. Mary Andinorythrocyte distribution width (RBC) [Ratio]14.0 %Poqjni64.0-15.0 [facility] HospitalComment on above:Performed By: #### CBC #### [facility] [address] [place] [address] Dr. Mary SolanoHematocrit (Bld) [Volume fraction]44.4 %Ngmbbd42.0-48.0The [facility] HospitalComment on above:Performed By: #### CBC #### [facility] [address] [place] [address] Dr. Mary SolanoHemoglobin (Bld) [Mass/Vol]14.3 g/rKUexszw92.0-16.0The [facility] HospitalComment on above:Performed By: #### CBC #### [facility] [address] [place] [address] Dr. Mary Singletary #0.02 10e3/ulNormal0.00-0.03The [facility] HospitalComment on above:Performed By: #### CBC #### [facility] [address] [place] [address] Dr. Mary Singletary %0.3 %Normal0.0-0.5The [facility] HospitalComment on above: Performed By: #### CBC #### [facility] [address] [place] [address] Dr. Yilan ChangLYMPH #2.1 103/ulNormal1.2-3.8The [facility] HospitalComment on above:Performed By: #### CBC #### [facility] [address] [place] [address] Dr. Mary Patelmphocytes/100 WBC (Bld)30.1 %Iyiguj40.5-60.0[facility] HospitalComment on above:Performed By: #### CBC #### [facility] [address] [place] [address] Dr. Mary Lara DIFF REQNONormalThe [facility] HospitalComment on above: Performed By: #### CBC #### [facility] [address] [place] [address] Dr. Mary Sykes (RBC) [Entitic mass]29.3 wiPaofjz93.7-34.0The [facility] HospitalComment on above:Performed By: #### CBC #### [facility] [address] [place] [address] Dr. Mary Sykes (RBC) [Mass/Vol]32.2 g/vOThlpjc49.9-35.2The [facility] HospitalComment on above:Performed By: #### CBC #### [facility] [address] [place] [address] Dr. Mary Joyner (RBC) [Entitic vol]91.0 sNKxqkcn10.0-99.0The [facility] HospitalComment on above:Performed By: #### CBC #### [facility] [address] [place] [address] Dr. Mary Hartman #0.6 103/ulNormal0.3-0.8The [facility] HospitalComment on above:Performed By: #### CBC #### [facility] [address] [place] [address] Dr. Mary Hannaocytes/100 WBC (Bld)8.9 %Normal1.7-12.0[facility] Comment on above:Performed By: #### CBC #### [facility] [address] [place] [address] Dr. Mary Ramos #4.0 103/ulNormal1.4-6.5The [facility] HospitalComment on above:Performed By: #### CBC #### [facility] [address] [place] [address] Dr. Mary Hanksutrophils/100 WBC (Bld)58.2 %Ztpbix63.0-75.0[facility] HospitalComment on above:Performed By: #### CBC #### [facility] [address] [place] [address] Dr. Mary Barrientoslet mean volume (Bld) [Entitic vol]8.8 fLCritically low 9.5-13.5The [facility] HospitalComment on above:Performed By: #### CBC #### [facility] [address] [place] [address] Dr. Mary SolanoPLT372 103/ljNbgvhj208-666Ssm [facility] HospitalCommarlette regional hospital on above: Performed By: #### CBC #### [facility] [address] [place] [address] Dr. Mary SolanoRBC4.88 106/ulNormal4.20-5.40The [facility] HospitalComment on above:Performed By: #### CBC #### [facility] [address] [place] [address] Dr. Mary SolanoWBC6.8 103/ulNormal4.0-11.0[facility] HospitalCommarlette regional hospital on above: Performed By: #### CBC #### [facility] [address] [place] [address] Dr. Mary SolanoGLYCOHEMOGLOBIN A1Con 56-31-2251LES RECOMMENDATIONSEE BELOWNormal [facility] HospitalCommarlette [facility] hospital on above:Result Comment: ADA RECOMMENDED LIMIT 4.0 - 6.0 ADA THERAPEUTIC TARGET < 7.0 ACTION SUGGESTED > 7.0Performed By: #### A1C #### [facility] [address] [place] [address] Dr. Mary SolanoGlucose [Mass/Vol]117 mg/dLNormalThGreen Cross HospitalComment on above:Performed By: #### A1C #### [facility] [address] [address] [address] Mary SolanoHbA1c (Bld) [Mass fraction]5.7 %Normal4.5-6.2The [facility] HospitalComment on above:Performed By: #### A1C #### [facility] [address] [address] [address] Mary SteinID PROFILEon 30-25-9723CALD-HDL RATIO NORMSEE [facility] HospitalComment on above:Result Comment: 3.3 - 4.4 LOW RISK 4.4 - 7.1 AVERAGE RISK 7.1 - 11.0 MODERATE RISK >11.0 HIGH RISKPerformed By: #### CMP, LIPID #### [facility] [address] [place] [address] Dr. Mary Shoemakeresterol [Mass/Vol]197 mg/dLNormal<=200[facility] Comment on above:Performed By: #### CMP, LIPID #### [facility] [address] [place] [address] Dr. Mary Shoemakeresterol in HDL [Mass/Vol]49 mg/pTWmpavk52-49Jsh [facility] HospitalComment on above:Performed By: #### CMP, LIPID #### [facility] [address] [place] [address] Dr. Mary SolanoCholesterol in LDL [Mass/Vol]124.4 mg/dLChillicothe HospitalCommarlette regional hospital on above:Performed By: #### CMP, LIPID #### [facility] [address] [place] [address] Dr. Mary Shoemakerestersarita.total/Cholesterol in HDL [Mass ratio]4.0 {ratio} NormalNewark HospitalComment on above:Performed By: #### CMP, LIPID #### [facility] [address] [place] [address] Dr. Mary SolanoHDL NORMAL> or = 60 mg/dl - LOW CARDIOVASCULAR RISK <40 mg/dl - HIGH CARDIOVASCULAR RISKChillicothe HospitalComment on above:Performed By: #### CMP, LIPID #### [facility] [address] [address] [address] Mary SolanoLDL CALC NORMALSEE BELOWNoMercy Memorial HospitalComment on above:Result Comment: <100 mg/dl OPTIMAL 100 - 129 mg/dl NEAR OR ABOVE OPTIMAL 130 - 159 mg/dl BORDERLINE HIGH 160 - 189 mg/dl HIGH >190 mg/dl VERY HIGH Performed By: #### CMP, LIPID #### [facility] [address] [place] [address] Dr. Mary SolanoTriglyceride [Mass/Vol]118 mg/dLNormal<=150[facility] Comment on above:Performed By: #### CMP, LIPID #### [facility] [address] [place] [address] Dr. Mary SolanoVLDL CALC23.6 mg/dLNoMercy Memorial HospitalComment on above: Performed By: #### CMP, LIPID #### [facility] [address] [place] [address] Dr. Mary SolanoPROF 14(COMP METB)on 70-58-9515Wceqiwl [Mass/Vol]3.8 g/dLNormal 3.4-5.0[facility] HospitalComment on above:Performed By: #### CMP, LIPID #### [facility] [address] [place] [address] Dr. Mary SolanoAlbumin/Globulin [Mass ratio]1.1 {ratio}NormalThe [facility] HospitalComment on above:Performed By: #### CMP, LIPID #### [facility] [address] [place] [address] Dr. Mary Diez [Catalytic activity/Vol]136 U/LCritically hnir71-656Dtg [facility] HospitalComment on above:Performed By: #### CMP, LIPID #### [facility] [address] [place] [address] Dr. Mary Cardona [Catalytic activity/Vol]20 U/VGaysbm10-52Vsb [facility] HospitalComment on above:Performed By: #### CMP, LIPID #### [facility] [address] [place] [address] Dr. Yilan ChangAnion gap [Moles/Vol]12.1 mmol/LNormalNewark Hospital Comment on above:Performed By: #### CMP, LIPID #### [facility] [address] [place] [address] Dr. Mary SolanoAST [Catalytic activity/Vol]14 U/LCritically sfa93-55Ggt [facility] HospitalComment on above:Performed By: #### CMP, LIPID #### [facility] [address] [place] [address] Dr. Mary SolanoBilirubin [Mass/Vol]0.3 mg/dLNormal0.2-1.0[facility] Comment on above:Performed By: #### CMP, LIPID #### [facility] [address] [place] [address] Dr. Mary SolanoCalcium [Mass/Vol]9.3 mg/dLNormal8.5-10.1[facility] Comment on above:Performed By: #### CMP, LIPID #### [facility] [address] [place] [address] Dr. Mary SolanoChloride [Moles/Vol]102 mmol/ENxidor43-707LkcNewark Hospital Comment on above:Performed By: #### CMP, LIPID #### [facility] [address] [place] [address] Dr. Mary SolanoCO2 [Moles/Vol]29.0 mmol/TAkkdxv94.0-32.0[facility] Comment on above:Performed By: #### CMP, LIPID #### [facility] [address] [place] [address] Dr. Mary SolanoCreatinine [Mass/Vol]0.64 mg/dLNormal0.55-1.02The [facility] HospitalComment on above:Performed By: #### CMP, LIPID #### [facility] [address] [place] [address] Dr. Mary Francis-AF EQUATORIAL GUINEAN>60Normal>=60The [facility] HospitalComment on above:Performed By: #### CMP, LIPID #### [facility] [address] [place] [address] Dr. Yilan ChangEGFR-NON AF EQUATORIAL GUINEAN>60Normal>=60The [facility] HospitalComment on above:Performed By: #### CMP, LIPID #### [facility] [address] [place] [address] Dr. Mary SolanoGlobulin (S) [Mass/Vol]3.4 g/dLNormalThGreen Cross HospitalComment on above:Performed By: #### CMP, LIPID #### [facility] [address] [place] [address] Dr. Mary SolanoGlucose [Mass/Vol]94 mg/aAElnllg95-976Mdk [facility] Comment on above:Performed By: #### CMP, LIPID #### [facility] [address] [place] [address] Dr. Mary SolanoPotassium [Moles/Vol]4.1 mmol/LNormal3.5-5.1The [facility] Comment on above:Performed By: #### CMP, LIPID #### [facility] [address] [place] [address] Dr. Mary SolanoProtein [Mass/Vol]7.2 g/dLNormal6.4-8.2[facility] Comment on above:Performed By: #### CMP, LIPID #### [facility] [address] [place] [address] Dr. Mary SolanoSodium [Moles/Vol]139 mmol/BKwlqph540-944UmaNewark Hospital Comment on above:Performed By: #### CMP, LIPID #### [facility] [address] [place] [address] Dr. Mary SolanoUrea nitrogen [Mass/Vol]14.0 mg/dLNormal7.0-18.0The [facility] HospitalComment on above:Performed By: #### CMP, LIPID #### [facility] [address] [place] [address] Dr. Mary Tilley nitrogen/Creatinine [Mass ratio]21.9 mg/mgNormalThe [facility] HospitalComment on above:Performed By: #### CMP, LIPID #### [facility] [address] [place] [address] Dr. Hernandez ChangEGDOrdered By: Saira Akbar on 52-26-7161VrhQwxgkc [facility] Reminderson 16-98-3238Gxvuplgww From: Harry JACKSON, Tati Mooney To: EU - Clinical; Sent: 05/22/2019 09:03:06 EST Show up: 06/03/2019 07:00:00 EST Subject: Ambulatory Reminder Due Date/Time: 06/05/2019 07:00:00 EST Reminder/Recall FISH/Cytology done 05/22/19 due to gross hematuria done, results negative, in patients [facility] Vital Signs Date TimeVital SignValuePerforming ZbgojsaurKuqqyzco41-42-6245 11:50-0500Body fvuyuu217.02 cmLisa Aichholz DELIVERY ASSOCIATE-C Work Phone: [phone]11-10-2025 11:50-0500 Body mass index (BMI) [Ratio]31.8 kg/m2Lisa Aichholz DELIVERY ASSOCIATE-C Work Phone: [phone] [place], [place] [address]111-10-2025 11:50-0500 Body iotsxqsoxsp22.1 [degF]Estefany Aichholz DELIVERY ASSOCIATE-C Work Phone: [phone] [place], [place] 134[address]111-10-2025 11:50-0500 Body nyyieh88.64 kgLisa Aichholz DELIVERY ASSOCIATE-C Work Phone: [phone] [place], [place] [address]111-10-2025 11:50-0500 Diastolic blood tmszomqo39 mm[Hg]Estefany Aichholz DELIVERY ASSOCIATE-C Work Phone: [phone] [place], [place] [address]111-10-2025 11:50-0500 Heart rate70 /minLisa Aichholz DELIVERY ASSOCIATE-C Work Phone: [phone] [place], [place] [address]111-10-2025 11:50-0500 Respiratory rate20 /minLisa Aichholz DELIVERY ASSOCIATE-C Work Phone: [phone] [place], [place] [address]111-10-2025 11:50-0500 SaO2% (BldA) [Mass fraction]97 %Estefany Aichholz DELIVERY ASSOCIATE-C Work Phone: [phone] [place], [place] [address]111-10-2025 11:50-0500 Systolic blood fjejsojs043 mm[Hg]Estefany Aichholz DELIVERY ASSOCIATE-C Work Phone: [phone])[address]24 [address]09-16-2025 09:07-0400 Body winvjp351.02 cmLisa Aichholz DELIVERY ASSOCIATE-C Work Phone: [phone])[address]09-16-2025 09:07-0400 Body mass index (BMI) [Ratio]32.1 kg/m2Lisa Aichholz DELIVERY ASSOCIATE-C Work Phone: [phone] [address]09-16-2025 09:07-0400 Body tyqwizudzbj86.3 [degF]Estefany Aichholz DELIVERY ASSOCIATE-C Work Phone: [phone] [address]09-16-2025 09:07-0400 Body .15 kgLisa Aichholz DELIVERY ASSOCIATE-C Work Phone: [phone])[address]24 [address]09-16-2025 09:07-0400 Diastolic blood fudecthr43 mm[Hg]Estefany Aichholz DELIVERY ASSOCIATE-C Work Phone: [phone] [address]09-16-2025 09:07-0400 Heart rate61 /minLisa Aichholz DELIVERY ASSOCIATE-C Work Phone: [phone] [place], [place] [address]109-16-2025 09:07-0400 Respiratory rate18 /minLisa Aichholz DELIVERY ASSOCIATE-C Work Phone: [phone] [place], [place] [address]-16-2025 09:07-0400 SaO2% (BldA) [Mass fraction]96 %Esteafny Aichholz DELIVERY ASSOCIATE-C Work Phone: [phone] [place], [place] [address]109-16-2025 09:07-0400 Systolic blood tmtowooc359 mm[Hg]Estefany Aichholz DELIVERY ASSOCIATE-C Work Phone: [facility]08-11-2025 15:10-0400 Body mass index (BMI) [Ratio]31.24 kg/m2Estefany Garcia DELIVERY ASSOCIATE Work Phone: [facility] HospitalCdovztkbwa04-49-5353 15:10-0400Body temperature 98.01 [degF]Estefany Garcia DELIVERY ASSOCIATE Work Phone: [facility] HospitalNghyaagqba51-28-8297 15:10-0400Body rxpzsi60.56 kgLisa Garcia DELIVERY ASSOCIATE Work Phone: [facility] HospitalWwpxcvzwnn56-82-0070 15:10-0400Diastolic blood mm[Hg]Estefany Garcia DELIVERY ASSOCIATE Work Phone: [facility] HospitalYujsoxpdfs83-20-6269 15:10-0400Heart rate76 /min Estefany Garcia DELIVERY ASSOCIATE Work Phone: [facility] HospitalHhfuoywuru20-03-2766 15:10-0400Respiratory rate16 /minLisa Garcia DELIVERY ASSOCIATE Work Phone: [facility] HospitalOitflgeddd65-74-4341 15:10-5443QjC3% (BldA) [Mass fraction]97 %Estefany Garcia DELIVERY ASSOCIATE Work Phone: [facility] HospitalHvezlgojqi61-89-6306 15:10-0400Systolic blood abngkrcd706 mm[Hg]Estefany Garcia DELIVERY ASSOCIATE Work Phone: [facility] HospitalWmosnwtdsy52-84-3388 10:38-0400Body mass index (BMI) [Ratio]33.34 kg/i8KmtiesxMichell Cowan PREDATORY HUNTER-REFERENCE AND INSTRUCTION LIBRARIAN Work Phone: [facility]06-27-2025 10:38-0400Body ysebjz52.37 kgMichell Cowan PREDATORY HUNTER-REFERENCE AND INSTRUCTION LIBRARIAN Work Phone: [facility]06-27-2025 10:38-0400Diastolic blood sjlmcqyh49 mm[Hg]Michell Cowan PREDATORY HUNTER-REFERENCE AND INSTRUCTION LIBRARIAN Work Phone: [facility]06-27-2025 10:38-0400Heart rate 61 /minMichell Cowan PREDATORY HUNTER-REFERENCE AND INSTRUCTION LIBRARIAN Work Phone: [facility]06-27-2025 10:38-0400Systolic blood kzdawlot406 mm[Hg]Michell Cowan PREDATORY HUNTER-REFERENCE AND INSTRUCTION LIBRARIAN Work Phone: [facility]06-24-2025 10:16-0400Body mass index (BMI) [Ratio]32.53 kg/w6Nlndu Khadar DO Work Phone: [facility] HospitalXjudiuttbf82-12-6642 10:16-0400Body zjhekw53.96 kgCorey Khadar DO Work Phone: [facility] HospitalHbeyawwmfh27-01-6877 10:16-0400Diastolic blood rmekhyws50 mm[Hg]Alexis Khadar DO Work Phone: [facility] HospitalUylupatgpu97-07-4137 10:16-0400Systolic blood vozyhpwl651 mm[Hg]Alexis Khadar DO Work Phone: [facility] HospitalAquoauuufy39-08-5399 08:35-0400Body mass index (BMI) [Ratio]32.17 kg/m2Zoilasa Radha DELIVERY ASSOCIATE Work Phone: [facility] HospitalUsddzseiig90-74-2090 08:35-0400Body temperature 97.81 [degF]Estefany Radha DELIVERY ASSOCIATE Work Phone: [facility] HospitalJgcbggauvx13-43-0134 08:35-0400Body xuqgyc80 kg Estefany Radha DELIVERY ASSOCIATE Work Phone: [facility] HospitalTsnvzovrwy63-54-5939 08:35-0400Diastolic blood bbosrfmn03 mm[Hg]Estefany Radha DELIVERY ASSOCIATE Work Phone: [facility] HospitalFrsajsovql70-37-9084 08:35-0400Heart rate69 /min Estefany Radha DELIVERY ASSOCIATE Work Phone: [facility] HospitalJsuscihmrz30-33-6753 08:35-0400Respiratory rate18 /minLisa Radha DELIVERY ASSOCIATE Work Phone: [facility] HospitalOdqlkucomn06-69-3093 08:35-6908FzY4% (BldA) [Mass fraction]97 %Estefany Garcia DELIVERY ASSOCIATE Work Phone: [facility] HospitalFuzpjznjsz20-39-7271 08:35-0400Systolic blood viauofcm653 mm[Hg]Estefany Garcia DELIVERY ASSOCIATE Work Phone: [facility] HospitalHtwusguenz39-68-7489 10:46-0400Body cm Yadiel Garcia PA Work Phone: [facility] [employer] Bhtfte84-59-3530 10:46-0400Body mass index (BMI) [Ratio]34.9 kg/x7VhuuchbYadiel Garcia PA Work Phone: [facility]04-17-2025 10:46-0400Body .36 kgMattkingsleyw Jose PA Work Phone: [facility]04-17-2025 10:46-0400Diastolic blood ttfuddqq32 mm[Hg]Yadiel Garcia PA Work Phone: [facility] [employer] Cmvbri45-15-5616 10:46-0400Heart rate 72 /minMatthew Jose PA Work Phone: [facility]04-17-2025 10:46-0400 Respiratory rate18 /minMatthew Jose PA Work Phone: [facility]04-17-2025 10:46-1640KcX6% (BldA) [Mass fraction]95 %Yadiel Garcia PA Work Phone: [facility]04-17-2025 10:46-0400Systolic blood mm[Hg]Yadiel Garcia PA Work Phone: [facility]03-20-2025 10:43-0400Diastolic blood vyhpshzf43 mm[Hg]Yadiel Garcia PA Work Phone: [facility]03-20-2025 10:43-0400Heart rate 70 /minMatthew Nienberg PA Work Phone: [facility] [employer] Otbunh25-18-4494 10:43-0400 Respiratory rate20 /minMatthew Nienberg PA Work Phone: [facility] [employer] Thktbo14-50-9050 10:43-0400Systolic blood urmculbu401 mm[Hg]Yadiel Nienberg PA Work Phone: [facility] [employer] Bufzdp03-55-7724 12:59-0500Diastolic blood xyslbigd31 mm[Hg]Yadiel Nienberg PA Work Phone: [facility] [employer] Dooeva04-72-1933 12:59-0500Heart rate 69 /minMatthew Nienberg PA Work Phone: [facility] [employer] Pblrou83-04-4735 12:59-0500 Respiratory rate18 /minMatthew Nienberg PA Work Phone: [facility] [place] [employer] Cfevti85-65-0580 12:59-3603DuL5% (BldA) [Mass fraction]97 %Yadiel Nienberg PA Work Phone: [facility] [place] [employer] Vpwvoh29-73-6084 12:59-0500Systolic blood wnyqfpef661 mm[Hg]Yadiel Nienberg PA Work Phone: [facility] [place] [employer] Giumqt18-27-7593 10:11-0500Body ioqpwz208.6 cmMatthew Nienberg PA Work Phone: [facility] [place] [employer] Pcqdku76-81-7644 10:11-0500Body mass index (BMI) [Ratio]34.33 kg/b8Hskmekh Nienberg PA Work Phone: [facility] [place] [employer] Gotlle40-66-0659 10:11-0500Body ecjjtn93.72 kgMatthew Nienberg PA Work Phone: [facility] [place] [employer] Pjxvxb56-63-1659 10:11-0500Diastolic blood mm[Hg]Yadiel Nienberg PA Work Phone: [facility]12-12-2024 10:11-0500Heart rate 64 /minMatthew Jose MUNGUIA Work Phone: [facility]12-12-2024 10:11-0500 Respiratory rate18 /minMatthew Jose PA Work Phone: [facility]12-12-2024 10:11-5412NtC4% (BldA) [Mass fraction]98 %Yadiel MUNGUIA Work Phone: [facility]12-12-2024 10:11-0500Systolic blood mm[Hg]Yadiel MUNGUIA Work Phone: [facility]12-05-2024 09:15-0500Body mass index (BMI) [Ratio]33.3 kg/j8Bdzldmqc Tong DELIVERY ASSOCIATE Work Phone: [facility] HospitalUmxsqgkclv12-12-9385 09:15-0500Body temperature 97.39 [degF]Sindhu Tong DELIVERY ASSOCIATE Work Phone: [facility] HospitalZsodgjmcll84-02-8474 09:15-0500Body iwfwci99 kg Sindhu Tong DELIVERY ASSOCIATE Work Phone: [facility] HospitalBbkfcsemdu92-28-3803 09:15-0500Diastolic blood svsffaqi76 mm[Hg]Sindhu Tong DELIVERY ASSOCIATE Work Phone: [facility] HospitalEmqtvkrwdz62-02-8425 09:15-0500Heart rate60 /min Sindhu Tong DELIVERY ASSOCIATE Work Phone: [facility] HospitalTopmgojmea30-00-3301 09:15-4088JvZ5% (BldA) [Mass fraction]100 %Sindhu Tong DELIVERY ASSOCIATE Work Phone: [facility] HospitalWyusgjfzpe55-39-0326 09:15-0500Systolic blood rckjrxez522 mm[Hg]Sindhu Tong DELIVERY ASSOCIATE Work Phone: [facility] HospitalKqoudabeeg36-18-0578 09:55-0400Body bwzgyj086.6 cmMatthew Nienberg PA Work Phone: [facility]10-29-2024 09:55-0400Body mass index (BMI) [Ratio]34.5 kg/z8Qvicvaw Nienberg PA Work Phone: [facility]10-29-2024 09:55-0400Body oyplqg25.17 kgMatthew Nienberg PA Work Phone: [facility]10-29-2024 09:55-0400Diastolic blood yptgsqvw54 mm[Hg]Yadiel Ennisenberg PA Work Phone: [facility]10-29-2024 09:55-0400Heart rate 70 /minMatthew Nienberg PA Work Phone: [facility]10-29-2024 09:55-0400 Respiratory rate18 /minMatthew Nienberg PA Work Phone: [facility]10-29-2024 09:55-4821NyA6% (BldA) [Mass fraction]98 %Yadiel Nienberg PA Work Phone: [facility]10-29-2024 09:55-0400Systolic blood mm[Hg]Yadiel Ennisenberg PA Work Phone: [facility]09-19-2024 08:39-0400Body mass index (BMI) [Ratio]34.5 kg/l0Fyofrgi Nienberg PA Work Phone: [facility] [place] [employer] Hdlaxv13-79-7524 08:39-0400Body ddfykt27.17 kgMatthew Nienberg PA Work Phone: [facility]09-19-2024 08:39-0400Diastolic blood mm[Hg]Yadiel Ennisenberg PA Work Phone: [facility] [place] [employer] Anbfio22-48-2909 08:39-0400Heart rate 67 /minMatthew Nienberg PA Work Phone: [facility]09-19-2024 08:39-0400 Respiratory rate16 /minYadiel Garcia PA Work Phone: [facility]09-19-2024 08:39-5640CcQ6% (BldA) [Mass fraction]98 %Yadiel Garcia PA Work Phone: [facility]09-19-2024 08:39-0400Systolic blood mm[Hg]Ydaiel Garcia PA Work Phone: [facility]09-12-2024 10:35-0400Body .6 cmSindhu Tong DELIVERY ASSOCIATE Work Phone: [facility] HospitalCdpmkwptkv00-88-7376 10:35-0400Body mass index (BMI) [Ratio]34.33 kg/p7Xygkjstw Tong DELIVERY ASSOCIATE Work Phone: [facility] HospitalCgpbuqzjzv64-79-9913 10:35-0400Body temperature 97.39 [degF]Sindhu Tong DELIVERY ASSOCIATE Work Phone: [facility] HospitalPaexyxespj52-22-1408 10:35-0400Body .72 kgJenyrio Tong DELIVERY ASSOCIATE Work Phone: [facility] HospitalAnyadbiqfz45-76-6661 10:35-0400Diastolic blood dawubxps69 mm[Hg]Sindhu Tong DELIVERY ASSOCIATE Work Phone: [facility] HospitalRpdkajnnqs71-67-6202 10:35-0400Heart rate74 /min Sindhu Tong DELIVERY ASSOCIATE Work Phone: [facility] John'sComment on above:94% R895-62-0254 10:35-0400Systolic blood swuvphzy400 mm[Hg]Sindhu Tong DELIVERY ASSOCIATE Work Phone: [facility] HospitalWwocjnndhq03-48-1049 13:41-0400Body uvvduw202.6 cmStorres Garcia PREDATORY HUNTER-REFERENCE AND INSTRUCTION LIBRARIAN Work Phone: [facility] [place] [employer] Gplxww14-05-9870 13:41-0400Body mass index (BMI) [Ratio]35.02 kg/k6AnofdeptZeina Garcia PREDATORY HUNTER-REFERENCE AND INSTRUCTION LIBRARIAN Work Phone: [facility]08-20-2024 13:41-0400Body .53 kgSadario Ennisenberg PREDATORY HUNTER-REFERENCE AND INSTRUCTION LIBRARIAN Work Phone: [facility] [place] [employer] Htgaoc41-42-4313 13:41-0400Diastolic blood bifzudwp45 mm[Hg]Zeina Garcia PREDATORY HUNTER-REFERENCE AND INSTRUCTION LIBRARIAN Work Phone: [facility] [place] [employer] Acskbu51-49-6277 13:41-0400Heart rate 71 /minSamanmnoica Ennisenberg PREDATORY HUNTER-REFERENCE AND INSTRUCTION LIBRARIAN Work Phone: [facility] [place] [employer] Wyinkd41-26-1536 13:41-0400 Respiratory rate18 /Nadine Ennisenberg PREDATORY HUNTER-REFERENCE AND INSTRUCTION LIBRARIAN Work Phone: [facility]08-20-2024 13:41-5371KoY7% (BldA) [Mass fraction]96 %Zeina Garcia PREDATORY HUNTER-REFERENCE AND INSTRUCTION LIBRARIAN Work Phone: [facility] [place] [employer] Dehdou99-99-3701 13:41-0400Systolic blood qguasach647 mm[Hg]Zeina Garcia PREDATORY HUNTER-REFERENCE AND INSTRUCTION LIBRARIAN Work Phone: [facility] [place] [employer] Eqmkdv75-73-7591 14:46-0400Body hqkyna155.6 cmMatthew Nienberg PA Work Phone: [facility] [place] [employer] Oovnzv53-54-9385 14:46-0400Body mass index (BMI) [Ratio]35.02 kg/d9Dgwzzfp Nienberg PA Work Phone: [facility] [place] [employer] Jvbwjr27-04-7606 14:46-0400Body jgeneu43.53 kgMatthew Nienberg PA Work Phone: [facility] [place] [employer] Veycgn67-35-0359 14:46-0400Diastolic blood vehswlzr98 mm[Hg]Yadiel Nienberg PA Work Phone: [facility] [place] [employer] Gapafi20-83-4115 14:46-0400Heart rate 68 /minMatthew Nienberg PA Work Phone: [facility] [place] [employer] Tdijed92-41-8967 14:46-0400 Respiratory rate16 /minMatthew Nienberg PA Work Phone: [facility] [place] [employer] Bofuoy23-23-2403 14:46-5619AsB2% (BldA) [Mass fraction]96 %Yadiel Enniszak PA Work Phone: [facility] [place] [employer] Gnoyxa27-48-9567 14:46-0400Systolic blood mm[Hg]Yadiel Enniszak PA Work Phone: [facility] [place] [employer] Bekpvz99-18-5147 09:52-0400Diastolic blood ghmufafb41 mm[Hg]Yadiel Enniszak PA Work Phone: [facility] [place] [employer] Lshuzf21-10-2101 09:52-0400Heart rate 67 /minMatthew Nienberg PA Work Phone: [facility] [place] [employer] Viwspr13-86-5802 09:52-0400 Respiratory rate20 /minMatthew Nienberg PA Work Phone: [facility] [place] [employer] Cctvgd90-85-1784 09:52-0400Systolic blood nbdoxemc852 mm[Hg]Yadiel Enniszak PA Work Phone: [facility] [place] [employer] Htkvrg18-90-5937 09:25-0400Body .6 cmMatthew Nienberg PA Work Phone: [facility] [place] [employer] Btjsdf19-36-1530 09:25-0400Body mass index (BMI) [Ratio]33.13 kg/g2Dtfwjwy Nienberg PA Work Phone: [facility] [place] [employer] Avrqay34-86-6113 09:25-0400Body fhatzc75.54 kgMatthew Nienberg PA Work Phone: [facility] [place] [employer] Wctavh83-29-1724 09:25-0400Diastolic blood mm[Hg]Yadiel Garcia PA Work Phone: [facility]03-14-2024 09:25-0400Heart rate 58 /minMattkingsleyw Jose PA Work Phone: [facility]03-14-2024 09:25-0400 Respiratory rate14 /minMatthew Jose PA Work Phone: [facility]03-14-2024 09:25-4942ZaF7% (BldA) [Mass fraction]98 %Yadiel Garcia PA Work Phone: [facility]03-14-2024 09:25-0400Systolic blood vatmkigf121 mm[Hg]Yadiel Garcia PA Work Phone: [facility]02-05-2024 09:00-0500Body eqpzpo291.6 Neida Hahn MD Work Phone: [facility] HospitalVvbjvzsedj02-91-0389 09:00-0500Body mass index (BMI) [Ratio]33.23 kg/j1WkxgnvShaikh Jovani ASKEW Work Phone: [facility] HospitalQlmzigthrr93-86-2376 09:00-0500Body temperature 98.1 [degF]Shaikh Jovani ASKEW Work Phone: [facility] HospitalVwfjspzpav20-98-2308 09:00-0500Body byavoh36.82 kgShaikh Jovani ASKEW Work Phone: [facility] HospitalMvejzajyee42-60-8343 09:00-0500Diastolic blood eoijoxub27 mm[Hg]Shaikh Jovani ASKEW Work Phone: [facility] HospitalKyjwgzbwrb46-95-9269 09:00-0500Heart rate66 /min Shaikh Jovani ASKEW Work Phone: [facility] HospitalCsqmylpfad77-91-8165 09:00-0500Respiratory rate17 /Karishma Hahn MD Work Phone: [facility] HospitalXbmezbcatx38-88-6733 09:00-9181WpY0% (BldA) [Mass fraction]96 %Shaikh Jovani ASKEW Work Phone: [facility] HospitalUlmoxdxakl43-02-1932 09:00-0500Systolic blood nvtwmuxr858 mm[Hg]Shaikh Jovani ASKEW Work Phone: [facility] Encounters Encounter DateEncounter TypeCare ProviderFacilityStart: 04-21-2025 End: 87-39-1053nugbusswxoFxzm J Aichholz DELIVERY ASSOCIATE-C Work Phone: [facility] ClydeStart: 04-21-2025 End: 38-84-1122Sijqotw encounter procedureLisa Elizabeth Garcia DELIVERY ASSOCIATE-C-[facility] [place] Work Phone: Start: 02-25-2025 End: 35-94-3806sfnpegpudjPmdj J Aichholz DELIVERY ASSOCIATE-C Work Phone: [facility] Work Phone: Start: 02-25-2025 End: 77-46-1279Bvbnvcs encounter procedureLisa Elizabeth Garcia DELIVERY ASSOCIATE-C-[facility] [place] Work Phone: Start: 02-05-2025 End: 50-69-9535PshbsyBegwAshtabula County Medical Center - Pain Management ClinicStart: 02-03-2025 End: 71-02-0994Pyikaencz Result EncounterGeneric External Data ProviderNOMS External Department UnsolicitedStart: 02-03-2025 End: 83-63-4194Kwjdpobwp Result EncounterGeneric External Data ProviderNOMS External Department UnsolicitedStart: 01-20-2025 End: 06-02-9824Pnvbmt outpatient visit 25 minutesLisa Garcia DELIVERY ASSOCIATE Work Phone: [facility] CWM FMComment on above:Dizziness and giddiness (Primary Dx); Seasonal allergies; Primary hypertension ; Class 1 obesity due to excess calories without serious comorbidity with body mass index (BMI) of 33.0 to 33.9 in adultStart: 01-20-2025 End: 70-62-9792fjxvlfrpbbMAHV AICHHOLZNot AvailableStart: 01-20-2025 End: 35-17-3764Bdbjjg flowsheetEstefany Garcia DELIVERY ASSOCIATE Work Phone: [facility] CWM FMStart: 01-20-2025 End: 86-23-1305Gbfhcc flowsheetEstefany Garcia DELIVERY ASSOCIATE Work Phone: [facility] CWM FMStart: 01-16-2025 End: 22-05-1952Lyspjfecs department patient visitLISA Johnson JJREJIBlanchard Valley Health System Bluffton Hospitaltart: 01-06-2025 End: 27-36-1615NepavmSlld Aichholz DELIVERY ASSOCIATE Work Phone: [facility] CW FMComment on above:URI, acute (Primary Dx) Start: 12-25-2024 End: 70-19-4824Ruqaos-up Anjana Mckoy [facility] - SurgeryComment on above:Surgical PathologyAge related osteoporosis, unspecified pathological fracture presence (Primary Dx)Start: 12-18-2024 End: 22-89-9435Egiphzpdvh and management of inpatientRiverside Health Systemtart: 12-09-2024 End: 72-08-7658Zwpymi OnlyScanning Provider ExternalProMedica Physicians General SurgeryStart: 12-06-2024 End: 96-45-6654mpycikpfpnJXHXBWI Alberto [facility]Reg[facility] Start: 12-06-2024 End: 11-34-5515Rihpjf outpatient new 30 [facility] Alberto Cowan PREDATORY HUNTER-REFERENCE AND INSTRUCTION LIBRARIAN Work Phone: [facility] SurgeryComment on above: Rectal bleeding (Primary Dx)Start: 12-03-2024 End: 03-03-8728Caezpf flowsheetCorey Khadar DO Work Phone: [facility] BCP OBStart: 12-03-2024 End: 32-06-6419Sptdet flowsheetCorey Khadar DO Work Phone: [facility] BCP OBStart: 12-03-2024 End: 93-52-5096Ilcafaxqs Result EncounterCorey Khadar DO Work Phone: [facility] External Department UnsolicitedStart: 12-03-2024 End: 64-23-5604Xgaeyhp encounter procedureCorey Khadar DO Work Phone: [facility] HealthcareStart: 12-03-2024 End: 25-69-8812Dyllfjld preventive med est patient 40-64yrsCorey Khadar DO Work Phone: [facility] BCP OBComment on above:Well woman exam with routine gynecological exam; Encounter for screening mammogram for malignant neoplasm of breast; Postmenopausal stateStart: 12-03-2024 End: 49-39-9605rztdmjlfeuZVQEU FAZIONot AvailableStart: 11-26-2024 End: 54-00-1686Wjwgny flowsheetNatalie A Felter PREDATORY HUNTER-REFERENCE AND INSTRUCTION LIBRARIAN Work Phone: [facility] SWS DERMStart: 11-26-2024 End: 77-12-0672Xxqiyr flowsheetNatalie A Felter PREDATORY HUNTER-REFERENCE AND INSTRUCTION LIBRARIAN Work Phone: [facility] SWS DERMStart: 11-26-2024 End: 19-71-3232Stfdom outpatient new 30 minutesNatalie A Felter PREDATORY HUNTER-REFERENCE AND INSTRUCTION LIBRARIAN Work Phone: [facility] SWS DERMComment on above:Seborrheic keratosis (Primary Dx); Inflamed seborrheic keratosisStart: 11-26-2024 End: 75-49-0937bmavpsxptoIDLHZEP A FELTERNot AvailableStart: 11-21-2024 End: 93-72-9706Jgbmvi flowsheetLisa Aichamolz DELIVERY ASSOCIATE Work Phone: [facility] CWM FMStart: 11-21-2024 End: 68-96-7824Oockoo flowsheetLisa Aichholz DELIVERY ASSOCIATE Work Phone: [facility] CWM FMStart: 11-21-2024 End: 79-47-6316Mwarbd outpatient visit 25 minutesLisa Aichholz DELIVERY ASSOCIATE Work Phone: [facility] CWM FMComment on above:IRIS (obstructive sleep apnea) (Primary Dx); Primary hypertension ; Class 1 obesity due to excess calories without serious comorbidity with body mass index (BMI) of 33.0 to 33.9 in adult; Cigarette nicotine dependence without complication; Colon cancer screening; Bleeding pigmented skin lesionStart: 11-21-2024 End: 83-31-3729osynstqxusAMNE JJHAMOLZNot AvailableStart: 10-28-2024 End: 08-67-8653MibddtWygb Jjhholz DELIVERY ASSOCIATE Work Phone: [facility] CWM FMComment on above:Osteopenia, unspecified location; Major depressive disorder with single episode, in full remission ([facility]/HCC); Tobacco abuse; Primary hypertension ([facility]/HCC)Start: 10-17-2024 End: 38-99-2054IuhzcgOtxl Aichholz DELIVERY ASSOCIATE Work Phone: [facility] CWM FMComment on above:Major depressive disorder with single episode, in full remission ([facility]/HCC)Start: 09-26-2024 End: 68-12-4795Vmicie outpatient visit 15 minutesYadiel MUNGUIA Work Phone: [facility] - Pain Management ClinicComment on above:Lumbosacral spondylosis without myelopathy (Primary Dx) Start: 09-26-2024 End: 34-03-3735bqqccwzqmmMRLULGQ S NIENBERGProtestant Hospital HospitalStart: 09-23-2024 End: 96-82-9395Mwwvrlezr Result EncounterLisa Allanholz DELIVERY ASSOCIATE Work Phone: [facility] External Department UnsolicitedStart: 09-23-2024 End: 74-26-1611Wahqkmasp Result EncounterLisa Jjkirstyholz DELIVERY ASSOCIATE Work Phone: [facility] External Department UnsolicitedStart: 09-06-2024 End: 46-07-8792vvrdljcxnyNITLKZE E HOGCIELOProtestant Hospital HospitalStart: 08-29-2024 End: 80-37-7693Wsculv outpatient visit 25 minutesYadiel MUNGUIA Work Phone: [facility] - Pain Management ClinicComment on above:Disorder of sacrum (Primary Dx)Start: 08-29-2024 End: 69-95-0799wuaeafzccqCIKROCE S [facility] HospitalStart: 08-22-2024 End: 55-40-3222FueufbTigs Aichholz DELIVERY ASSOCIATE Work Phone: [facility] CWM FMComment on above:Tobacco abuseStart: 08-21-2024 End: 56-61-5819obpguepujzSIOL AICHHOLZNot AvailableStart: 08-01-2024 End: 66-49-6005BvgphsKdsbTayler CEJA CWM FMComment on above:Primary hypertension (CMS/HCC)Start: 07-25-2024 End: 55-99-1622WuxfyxHogowoou Fitzpatrick DELIVERY ASSOCIATE Work Phone: [facility] CWM FMComment on above:Osteopenia, unspecified location; Major depressive disorder with single episode, in full remission (CMS/HCC)Start: 07-09-2024 End: 01-66-1857Mttyxc outpatient visit 15 minutesYadiel MUNGUIA Work Phone: [facility] - Pain Management ClinicComment on above:Primary osteoarthritis of left hip (Primary Dx); Lumbosacral spondylosis without myelopathyStart: 07-09-2024 End: 53-96-6743plzpexnqndDCOSWHM S [facility] HospitalStart: 06-21-2024 End: 12-69-6919lpkejktfemMZZPYKG E [facility] HospitalStart: 06-18-2024 End: 77-36-5311CeaewwCstjlsaq Fitzpatrick DELIVERY ASSOCIATE Work Phone: [facility] CWM FMComment on above:Major depressive disorder with single episode, in full remission (CMS/HCC)Start: 05-23-2024 End: 06-06-9834FwiqcsOtecgrsn Tong DELIVERY ASSOCIATE Work Phone: noMS CWM FMComment on above:Tobacco abuseTobacco abuse; Major depressive disorder with single episode, in full remission (CMS/HCC)Start: 05-23-2024 End: 77-53-2356Zxbtjg outpatient visit [facility] Jose [facility] Work Phone: [facility] - Pain Management ClinicComment on above:Primary osteoarthritis of left hip (Primary Dx)Start: 05-23-2024 End: 94-05-4982dnxhjbdhodEOUHWMTHealthSouth Rehabilitation Hospital [facility] HospitalStart: 05-16-2024 End: 36-19-7267Oqjmxi flowsheetBrittany Tong DELIVERY ASSOCIATE Work Phone: [facility] CWM FMStart: 05-16-2024 End: 55-46-7419Bzkrxt flowsheetBrittany Tong DELIVERY ASSOCIATE Work Phone: [facility] CWM FMStart: 05-16-2024 End: 20-22-8247Bitbcs outpatient visit 10 minutesBrittany Tong DELIVERY ASSOCIATE Work Phone: [facility] CWM FMComment on above:Upper respiratory tract infection, unspecified type (Primary Dx); Major depressive disorder with single episode, in full remission (CMS/HCC); URTI (acute upper respiratory infection)Start: 05-16-2024 End: 09-16-5474uegelrpngqHSBDLZYJ FITZPATRICKNot AvailableStart: 05-02-2024 End: 28-88-8604TzjwzxOfjhiphi Tong DELIVERY ASSOCIATE Work Phone: noMS CWM FMComment on above:Primary hypertension (CMS/HCC)Start: 04-26-2024 End: 89-65-9145FpfjujKpnv [facility] ClinicStart: 04-16-2024 End: 36-15-8807YyiuxhRfcjlozw Tong DELIVERY ASSOCIATE Work Phone: [facility] CWM FMComment on above:Primary osteoarthritis of left hip; Primary osteoarthritis of right knee; Spinal stenosis of lumbar region with neurogenic claudicationStart: 04-09-2024 End: 22-52-7192Rkwkrx outpatient visit 15 minutesYadiel MUNGUIA Work Phone: [facility] - Pain Management ClinicComment on above:Disorder of sacrum (Primary Dx)Start: 04-09-2024 End: 21-75-1356JbcwfkZckw Eugenio CEJA CWM FMComment on above:Major depressive disorder with single episode, in full remission (CMS/HCC)Start: 04-04-2024 End: 49-00-8429RhhwgfUxwmqnhd Tong DELIVERY ASSOCIATE Work Phone: [facility] CWM FMComment on above:Primary hypertension (CMS/HCC)Start: 03-22-2024 End: 23-80-7366mtpwwkzepfVALHXFF Ilir [facility] ALTUSCIELOBlanchard Valley Health System Bluff[facility] Hospitaltart: 03-15-2024 End: 26-26-8613UdysxeVsvzczun Tong DELIVERY ASSOCIATE Work Phone: [facility] CWM FMComment on above:Primary osteoarthritis of left hip; Primary osteoarthritis of right knee; Spinal stenosis of lumbar region with neurogenic claudicationStart: 03-14-2024 End: 43-17-6346Zbzaos OnlyBrittany Tong DELIVERY ASSOCIATE Work Phone: [facility] CWM FMComment on above:Obstructive sleep apnea syndrome (Primary Dx)Start: 03-06-2024 End: 21-00-2204Qwvicy OnlyBrittany Tong DELIVERY ASSOCIATE Work Phone: [facility] CWM FMComment on above:Primary hypertension (CMS/HCC) (Primary Dx)Start: 02-29-2024 End: 75-27-6993Gvblpk outpatient visit 25 minutesYadiel MUNGUIA Work Phone: [facility] - Pain Management ClinicComment on above:Spinal stenosis of lumbar region with neurogenic claudication (Primary Dx)Start: 02-29-2024 End: 06-66-0288stovcqcwgtVKFJNMB S [facility] HospitalStart: 02-22-2024 End: 13-58-7750Eoikiq outpatient visit 10 minutesBrsamy Altamiranotrick DELIVERY ASSOCIATE Work Phone: [facility] CWM FMComment on above:Hypersomnia with sleep apnea (Primary Dx); Obstructive sleep apnea syndromeStart: 02-22-2024 End: 42-57-3201mpthdpgwyrVHYUWGVH FITZPATRICKNot AvailableStart: 02-20-2024 End: 61-19-6811EplzrkJfdbnayw Tong DELIVERY ASSOCIATE Work Phone: NOAN CWM FMComment on above:Tobacco abuseStart: 02-19-2024 End: 13-97-3975NhincpKmryakne Tong DELIVERY ASSOCIATE Work Phone: [facility] CWM FMComment on above:Osteopenia, unspecified locationStart: 02-09-2024 End: 48-76-6397ddpqimhkciMQHMKCM E [facility] ALTUSANProtestant Hospital HospitalStart: 01-30-2024 End: 20-56-2735Qdiblvhlv encounterSamanmonica Garcia PREDATORY HUNTER-REFERENCE AND INSTRUCTION LIBRARIAN Work Phone: [facility] - Pain Management ClinicStart: 01-30-2024 End: 13-65-0321Zdecml outpatient visit 15 minutesSadario Garcia PREDATORY HUNTER-REFERENCE AND INSTRUCTION LIBRARIAN Work Phone: [facility] - Pain Management ClinicComment on above:Disorder of sacrum (Primary Dx)Start: 01-30-2024 End: 06-05-8619bebxqlqausPEAZSBMK M NIENBERGProtestant Hospital HospitalStart: 01-29-2024 End: 61-13-3266Krapcbvnc Result EncounterCorey Khadar DO Work Phone: NOVX External Department UnsolicitedStart: 01-29-2024 End: 61-16-9478Xwosqlafn Result EncounterCorey Khadar DO Work Phone: NODV External Department UnsolicitedStart: 01-24-2024 End: 98-95-0113heigdgohsjWRGAAVKT FITZPATRICKNot AvailableStart: 12-28-2023 End: 08-95-3402Qebuun outpatient visit 15 Twitt2gogaurav Gabriel DailyStrengthzak PA Work Phone: [facility] - Pain Management ClinicComment on above:Disorder of sacrum (Primary Dx)Start: 10-03-2023 End: 92-37-5615Iusfzt outpatient visit 15 PredicSiszak PA Work Phone: [facility] - Pain Management ClinicComment on above:Lumbosacral spondylosis without myelopathy (Primary Dx) Start: 08-24-2023 End: 73-60-4700Iwvntl outpatient visit 15 minutesOLIVERS Apparelzak PA Work Phone: [facility] - Pain Management ClinicComment on above:Disorder of sacrum (Primary Dx)Start: 21-50-4855Ttoeajcesar Hahn MD Work Phone: [facility] CWM IMStart: 84-16-3812Nxlvmkcesar Hahn MD Work Phone: [facility] CWM IMStart: 07-17-2023 End: 20-87-9882Ujwcyi outpatient visit 25 minutesShaikh Jovani ASKEW Work Phone: [facility] CWM IMComment on above:Obstructive sleep apnea syndrome (Primary Dx); Hyperlipidemia, unspecified hyperlipidemia type (CMS/HCC); Primary hypertension (CMS/HCC); URTI (acute upper respiratory infection); Major depressive disorder with single episode, in full remission (CMS/HCC); Tobacco abuseStart: 05-25-2022 End: 80-00-0250ugkaxlenppSAWBTA H FAWWADFacility:O9Qizmn: 11-12-2021 End: 00-62-3725nfjrsooqixICJEIB H FAWWADFacility:H1 Procedures DateProcedureProcedure DetailPerforming ClinicianStart: 90-88-2397CW TOMOSYNTHESIS SCREENING BIGeneric External Data ProviderStart: 02-03-2025 MammographyGeneric ProviderStart: 67-78-9420BreyefxeqozXrfmsr Ean CMAStart: 11-09-1700ZYO,APTIMA HPV,AGE GDLNCorey Khadar DO Work Phone: Start: 02-49-1952Xzcnqktiihk observation [Identifier] in Cervix by Cyto stainCorey Khadar DO Work Phone: Start: 39-98-8106RFFGYIKVPRS SKIN LESIONNatalie A Felter PREDATORY HUNTER-REFERENCE AND INSTRUCTION LIBRARIAN Work Phone: Start: 43-89-6480GCT GAMMA GLUTAMYL TRANSPEPTIDASELisa Radha DELIVERY ASSOCIATE Work Phone: Start: 33-46-8974OWBU LIVER PANELLisa Radha DELIVERY ASSOCIATE Work Phone: Start: 20-65-5097WI TOMOSYNTHESIS SCREENING BICorey Khadar DO Work Phone: Start: 32-95-7231OznimfyeinvIlobiajo Tong DELIVERY ASSOCIATE Work Phone: Start: 84-02-1307Opkulhraelg observation [Identifier] in Cervix by Cyto stainBrittany Tong DELIVERY ASSOCIATE Work Phone: Start: 22-61-2664HmyxxjzbagrWxindl Fawwad MD Work Phone: Start: 94-80-6654VfdwxirsuhaBegsfw Fawwad MD Work Phone: Start: 94-73-8584ZjnwvnxchdhpaxhpnblhyrgwxwBoeabajx Provider ExternalH/O: sectionHx of sectionLisa Garcia DELIVERY ASSOCIATE-C Work Phone: History of operative procedure on kneeHistory of right knee joint replacementLisa Garcia DELIVERY ASSOCIATE-C Work Phone: Plan of Treatment DateCare ActivityDetailAuthorStart: 97-18-7029Qxmvcawle for malignant neoplasm of colonProPromedica Flower Hospital SystemStart: 77-90-1915RDaU,Tdap and Td Vaccines (3 - Td or Tdap)DTaP,Tdap and Td Vaccines (3 - Td or Tdap)[facility] Start: 79-42-7103Vzbdtzxmx for malignant neoplasm of cervixNOMS HealthcareStart: 78-89-4579Ugxbvptno for malignant neoplasm of cervixPap SmearNOMS Healthcare Start: 17-12-1263Eawcodrco for malignant neoplasm of cervixPap SmearNOMS HealthcareStart: 43-31-1527Nsmzyqyft for malignant neoplasm of breastMammogram NOMS HealthcareStart: 43-06-7713Etzzz BMI ScreeningAdult BMI ScreeningCleveland Clinic Medina Hospital SystemStart: 64-65-7756Fglbang ScreeningTobacco ScreeningCleveland Clinic Medina Hospital SystemStart: 58-97-3840Uzkgm BMI ScreeningAdult BMI ScreeningCleveland Clinic Medina Hospital SystemStart: 36-22-7569Vsocqrd ScreeningTobacco ScreeningCleveland Clinic [facility] Start: 12-09-2025 End: 92-31-0859Dbunhvn encounter procedureNOMS BCP OBStart: 05-08-3415Nqxuu BMI ScreeningAdult BMI ScreeningCleveland Clinic Medina Hospital SystemStart: 89-18-9247Dbxfajv ScreeningTobacco ScreeningCleveland Clinic Medina Hospital SystemStart: 43-85-4914Eyhhx BMI ScreeningAdult BMI ScreeningCleveland Clinic [facility] SystemStart: 67-83-9593Okqnrsr ScreeningTobacco ScreeningCleveland Clinic [facility] SystemStart: 12-39-4631Zquoebx ScreeningTobacco ScreeningCleveland Clinic [facility] SystemStart: 14-27-2314Yynvwmp ScreeningTobacco ScreeningCleveland Clinic [facility] SystemStart: 91-92-9896Gcaggqrch for malignant neoplasm of lungLung Cancer Screening Shared Decision MakingNOMS HealthcareComment on above:Postponed from 1961 (Other Medical Reasons) Start: 05-29-2025 End: 17-31-4881Ebycrsw encounter procedureNOMS SWS DERMStart: 52-90-6097Pnmga BMI ScreeningAdult BMI ScreeningRegency Hospital Cleveland Eastca [facility] SystemStart: 56-51-7342Ieoiqfd ScreeningTobacco ScreeningRegency Hospital [facility] Eastca [facility] [place] SystemStart: 25-39-3770Oruaonc ScreeningTobacco ScreeningRegency Hospital [facility] Eastca [facility] [place] SystemStart: 52-16-4575Chlum BMI ScreeningAdult BMI ScreeningRegency Hospital [facility] Eastca [facility] [place] SystemStart: 59-99-8225Hvrdwqj ScreeningTobacco ScreeningRegency Hospital [facility] Eastca [facility] [place] SystemStart: 06-83-5782Plhcutxok for malignant neoplasm of colonNOMS HealthcareStart: 22-03-8935Wxchd BMI Screening Adult BMI ScreeningRegency Hospital Cleveland Eastca [facility] [place] SystemStart: 59-49-4730Dhocyup Screening Tobacco ScreeningRegency Hospital Cleveland Eastca [facility] SystemStart: 39-72-0040Inrqxgk referral [facility] Work Phone: Start: 02-25-2025 End: 32-07-8681Medjqnv encounter /16/2025 9:00 AM EDT Office Visit [facility] [address] [place] [address] Estefany Garcia, DELIVERY ASSOCIATE [address] [place] [address] KELLEY DE LA ROSA FMStart: 94-33-6051Brkotlohl vaccinationRegency Hospital Cleveland Eastca [facility] SystemStart: 26-35-0252Vwhjigmox for malignant neoplasm of breast MammogramNOMS HealthcareStart: 01-20-2025 End: 55-69-3295Nitorxe encounter scfuwtkoy98/11/2025 3:00 PM EDT Office Visit [facility] FM [address] [place] [address] Estefany Garcia, DELIVERY ASSOCIATE [address] [place] [address] Chao DE LA ROSA FMComment on above:ArrivedStart: 12-27-2024 Adult BMI ScreeningAdult BMI ScreeningRegency Hospital [facility] Eastca [facility] SystemStart: 12-27-2024 Tobacco ScreeningTobacco ScreeningRegency Hospital Cleveland Eastca [facility] SystemStart: 12-18-2024 End: 89-26-9465Kbxfthmty to same day surgery viubyy0012/18/2024 8:30 AM EDT - 12/18/2024 9:00 AM EDT Surgery [facility] Surgery [address] [place] [address] Jessica Maynard MD [address] [place] [address] COLONOSCOPY DIAGNOSTIC / SCREENING [36333 (CPT )][facility] HospitalComment on above:COLONOSCOPY DIAGNOSTIC / SCREENING [65953 (CPT )]Start: 12-18-2024 End: 72-00-6606Feykyqnuhnz flx dx w/collj spec when pfrmdCOLONOSCOPY DIAGNOSTIC / SCREENING rectal bleeding 12/18/2024 8:30 AM EDTFREMONT SURGERYStart: 24-85-0040Ivhsprvtbc hospital visit by qsrqjomxv19/09/2025 8:30 AM EDT Hospital Encounter [facility] [address] [place] [address] Jessica Maynard MD [address] [place] [address] [facility] HospitalStart: 12-11-2024 End: 75-36-1921mkjoklbpvo11/02/2025 3:20 PM EDT Support Visit [facility] Admit [address] [place] [address] [facility] AdmitStart: 12-03-2024 End: 00-43-7923UHP Skeletal system Views for bone densityDEXA bone density Imaging Routine Postmenopausal state Expected: 12/03/2024 (Approximate), Expires:12/03/2025NOMS HealthcareComment on above:Expected: 12/03/2024 (Approximate), Expires: 12/03/2025Start: 12-03-2024 End: 51-02-2662QI Breast - bilateral ScreeningBilateral screening mammogram Imaging Routine Encounter for screening mammogram for malignant neoplasm of breast Expected: 12/03/2024, Expires: 02/02/2026[facility] Work Phone: comment on above:Expected: 12/03/2024, Expires: 02/02/2026Start: 12-03-2024 End: 19-37-3993Onzwrse encounter procedureNOMS BCP OBComment on above:Arrived Start: 11-26-2024 End: 03-04-5105Efkijwk encounter /17/2025 10:55 AM EDT Office Visit [facility] DERM [address] [place] [address] Mer Irby APRN-REFERENCE AND INSTRUCTION LIBRARIAN [address] [place] [address] Bleeding pigmented skin lesionNOMS SWS DERMComment on above:Bleeding pigmented skin lesionStart: 11-21-2024 End: 77-73-2337Ttkifwx encounter procedureNOMS CWM FMComment on above:IRIS (obstructive sleep apnea) (Primary Dx); Primary hypertension ; Class 1 obesity due to excess calories without serious comorbidity with body mass index (BMI) of 33.0 to 33.9 in adult; Cigarette nicotine dependence without complication; Colon cancer screening; Encounter for screening for malignant neoplasm of lungStart: 11-07-2024 End: 87-17-8161Flhwxrl encounter rwtdegbgr15/29/2025 9:45 AM EDT Office Visit [facility] [address] [place] [address] Yadiel Garcia PA [address], [address] [place] [address] [facility] ClinicStart: 68-63-9365Wnpbini Screening Tobacco ScreeningCleveland Clinic Medina Hospital SystemStart: 09-26-2024 End: 09-02-6702Vvjejpf encounter qryypwpwh53/17/2025 10:45 AM EDT Office Visit [facility] [address] [place] [address] Yadiel Garcia PA [address], [address] [place] [address] [facility] Pain Management ClinicStart: 09-06-2024 End: 15-74-4422Yyidetnvg to same day surgery ykdwhe5409/06/2024 8:26 AM EDT - 09/06/2024 8:33 AM EDT Surgery [facility] - Pain P rocedures [address] [place] [address] Roly Dickens MD [address] [facility] [facility], [place] [phone] INJECTION BLOCK SACROILIAC JOINT [15817 (CPT )][facility] ProceduresComment on above:INJECTION BLOCK SACROILIAC JOINT [15670 (CPT )]Start: 09-06-2024 End: 91-95-8686Yxjynr si joint arthrgrphy&/anes/steroid w/imaINJECTION BLOCK SACROILIAC JOINT Disorder of sacrum 09/06/2024 8:26 AM EDTFREMONT PAINStart: 43-09-8907Epxlchrpoi hospital visit by thhaorlbd83/28/2025 8:26 AM EDT Hospital Encounter [facility] - Pain Procedures [address] [place] [address] Roly Dickens MD [address] [place], [place] [address] [facility] - Pain ProceduresStart: 09-06-2024 End: 76-16-8445Utfrknn encounter /28/2025 7:40 AM EDT Appointment [facility] Radiology [address] [facility] [place] [address] Roly Dickens MD [address] [place] [address] [facility] - RadiologyStart: 08-29-2024 End: 75-27-7296Oblnbpz encounter hfugpbnmb17/20/2025 10:45 AM EDT Office Visit [facility] [address] [place] [address] Yadiel Garcia PA [address], [address] [place], [place] [address] [facility] Pain Management [facility] and Hometart: 11-51-5110Aolve BMI Screening Adult BMI ScreeningNovant Health Kernersville Medical Centertart: 02-11-7668Ajmkfqk Screening Tobacco ScreeningNovant Health Kernersville Medical Centertart: 08-21-2024 End: 42-04-9122Hdojptm encounter lecarwnya36/12/2025 9:00 AM EDT Office Visit [facility] FM [address] [place] [address] Estefany Garcia NP [address] [place] [address] NOMS CW FMStart: 08-19-2024 End: 88-51-4166Csunxzd encounter /10/2025 10:30 AM EDT Office Visit [facility] FM [address] [place] [address] Sindhu Tong NP [address] [place] [address] [facility] CWM FMStart: 07-09-2024 End: 27-00-0018Miptxow encounter oaqsodamk11/28/2025 12:45 PM EST Office Visit [facility] [address] [place] [address] Yadiel Garcia PA [address], [address] [place] [address] [facility] Pain Management ClinicStart: 06-21-2024 End: 11-89-5596Rxwmobsug to same day surgery mrtyws6106/21/2024 7:22 AM EST - 06/21/2024 7:30 AM EST Surgery [facility] - Pain P rocedures [address] [place] [address] Roly Dickens MD [address] [place] [facility] [phone] INJECTION BURSA LARGE JOINT: left hip [ (CPT )][facility] ProceduresComment on above:INJECTION BURSA LARGE JOINT: left hip [ (CPT )]Start: 06-21-2024 End: 70-26-1552Nrwbktsmjnktns aspir&/inj major jt/bursa w/o usINJECTION BURSA LARGE JOINT Primary osteoarthritis of left hip 06/21/2024 7:22 AM ESTFREMONT PAINStart: 70-75-3386Xnrojkflht hospital visit by /10/2025 7:22 AM EST Hospital Encounter [facility] Procedures [address] [place] [address] Roly Dickens MD [address] [place], [place] [address] [facility] ProceduresStart: 90-43-0023Ybnnwhrug vaccination Influenza Vaccine (#1)NOMS HealthcareComment on above:Postponed from 02/11/2024 (Patient Ill Today)Start: 05-23-2024 End: 22-83-1594Jorubka encounter sabyevrft11/12/2024 9:45 AM EST Office Visit [facility] [address] [place] [address] Yadiel Garcia PA [address], [address] [place], [place] [address] [facility] Pain Management ClinicStart: 05-16-2024 End: 45-07-5946Xnxnoxg encounter procedureNOMS CWM FMComment on above:Arrived Start: 04-26-2024 End: 53-74-7642Gbmecxuay to same day surgery toulyc0804/26/2024 2:52 PM EST - 04/26/2024 2:59 PM EST Surgery [facility] - Pain P rocedures [address] [place] [address] Roly Dickens MD [address] [place], [place] [phone] INJECTION BLOCK SACROILIAC JOINT [73744 (CPT )][facility] - Pain ProceduresComment on above:INJECTION BLOCK SACROILIAC JOINT [89839 (CPT )]Start: 04-26-2024 End: 83-57-2121Xvozdh si joint arthrgrphy&/anes/steroid w/imaINJECTION BLOCK SACROILIAC JOINT Disorder of sacrum 04/26/2024 2:52 PM ESTFREMONT PAINStart: 93-83-4364Dridyrxzmy hospital visit by ctjxwqboa96/15/2024 2:52 PM EST Hospital Encounter [facility] Pain Procedures [address] [place] [address] Roly Dickens MD [address] [place] [place], [place] [address] [facility] - Pain ProceduresStart: 04-24-2024 End: 64-86-1742Jorngxv encounter yovxvvevo91/13/2024 10:00 AM EST Office Visit [facility] FM [address] [place] [address] Sindhu Tong, MARY [address] [place] [address] [facility] CWM FMStart: 04-09-2024 End: 58-59-8798Smazqpo encounter rajovxynq66/29/2024 9:45 AM EDT Office Visit [facility] [address] [place] [address] Yadiel Garcia, PA [address] [facility] [place], [place] [address] [facility] - Pain Management ClinicStart: 04-05-2024 End: 32-49-6632Gcslpcsfxfgca metabolic 2000 panel - Serum or PlasmaComprehensive metabolic panel Lab Routine Primary hypertension (CMS/HCC) Expected: 04/05/2024 (Approximate), Expires: 03/06/2025[facility] Work Phone: Comment on above:Expected: 04/05/2024 (Approximate), Expires: 03/06/2025Start: 03-22-2024 End: 56-74-5437Tnuzkaswt to same day surgery dnjxyo7603/22/2024 7:22 AM EDT - 03/22/2024 7:30 AM EDT Surgery [facility] - Pain P rocedures [address] [place] [address] Roly Dickens MD [address] [place], [place] [address] INJECTION BLOCK EPIDURAL CAUDAL STEROID [20930 (CPT )][facility] - Pain ProceduresComment on above:INJECTION BLOCK EPIDURAL CAUDAL STEROID [10150 (CPT )]Start: 03-22-2024 End: 11-06-7677Eeg dx/ther sbst intrlmnr lmbr/sac w/img gdnINJECTION BLOCK EPIDURAL CAUDAL STEROID Spinal stenosis of lumbar region with neurogenic claudication 03/22/2024 7:22 AM EDTFREMONT PAINStart: 99-75-2687Saxohkbjjg hospital visit by dxxwtqhna46/11/2024 7:22 AM EDT Hospital Encounter [facility] - Pain Procedures [address] [place] [address] Roly Dickens MD [address] [place] [address] [facility] Pain Procedures Start: 02-29-2024 End: 41-07-7048Zanxqgp encounter /19/2024 8:30 AM EDT Office Visit [facility] [address] [place] [address] Yadiel Garcia PA [address] [facility], 2nd [address] [place], [place] [address] [facility] Pain Management ClinicStart: 02-22-2024 End: 24-44-7790Dbebhci encounter vrretzvha01/12/2024 10:30 AM EDT Office Visit [facility] FM [address] [place] [address] Sindhu Tong NP [address] [place] [address] [facility] CWM FMStart: 02-16-2024 End: 99-93-2170Wubrginhz to same day surgery zhgqpa6202/16/2024 7:03 AM EDT - 02/16/2024 7:10 AM EDT Surgery [facility] - Pain P rocedures [address] [place] [address] Roly Dickens MD [address] [place] [address] INJECTION BLOCK SACROILIAC JOINT [23006 (CPT )][facility] - Pain ProceduresComment on above:INJECTION BLOCK SACROILIAC JOINT [77307 (CPT )]Start: 02-16-2024 End: 47-52-9515Jdplnl si joint arthrgrphy&/anes/steroid w/imaINJECTION BLOCK SACROILIAC JOINT Disorder of sacrum 02/16/2024 7:03 AM EDWestern [facility] SystemStart: 26-03-4804Mrvuxmocus hospital visit by yngynkigs71/06/2024 7:03 AM EDT Hospital Encounter [facility] Pain Procedures [address] [place] [address] Roly Dickens MD [address] [place] [address] [facility] - Pain ProceduresStart: 02-15-2024 End: 64-70-2600Xsipikn encounter aabanqroa44/05/2024 8:45 AM EDT Office Visit [facility] [address] [place] [address] Yadiel Garcia PA [address] [place] [address] [facility] - Pain Management ClinicStart: 59-57-2232Rwcvnygoh for malignant neoplasm of breastMammogramNOMS HealthcareStart: 66-71-4162XMBSI-19 Vaccine ( season)COVID-19 Vaccine ()[facility] SystemStart: 87-62-0907FFYTS-19 Vaccine ( season)COVID-19 Vaccine ()[facility] SystemStart: 16-32-7689OyqetodxkPage Memorial HospitalStart: 01-18-2024 End: 93-69-0925Rkhwxla encounter rjaivltoy97/08/2024 9:15 AM EDT Office Visit [facility] [address] [place] [address] Yadiel Garcia PA [address], [address] [place] [address] [facility] - Pain Management ClinicStart: 60-74-0551Yhxofrr Counseling Tobacco CounselingCleveland Clinic [facility] SystemStart: 01-12-2024 End: 50-90-1067Casichhkn to same day surgery mevuzq6501/12/2024 10:08 AM EDT - 01/12/2024 10:15 AM EDT Surgery [facility] - Pain Procedures [address] [place] [address] Roly Dickens MD [address] [place] [address] INJECTION BLOCK SACROILIAC JOINT [18334 (CPT )][facility] - Pain ProceduresComment on above:INJECTION BLOCK SACROILIAC JOINT [63292 (CPT )]Start: 01-12-2024 End: 19-46-0518Hypygk si joint arthrgrphy&/anes/steroid w/imaINJECTION BLOCK SACROILIAC JOINT Disorder of sacrum 01/12/2024 10:08 AM EDTFREMONT PAINStart: 56-48-6644Voexqjoxei hospital visit by sjlbymrai01/02/2024 10:08 AM EDT Hospital Encounter [facility] Pain Procedures [address] [place] [address] Roly Dickens MD [address] [place] [address] [facility] - Pain ProceduresStart: 11-30-2023 End: 30-51-2326Tdcaatk encounter wlrrogecx63/20/2024 9:00 AM EDT Office Visit [facility] OB [address] [place] [address] lAexis Rubalcava DO [address] [place] [address] NOM[facility] BCP OBStart: 10-03-2023 End: 63-50-9434Lsbnijk encounter zlodziduy29/23/2024 9:45 AM EDT Office Visit [facility] [address] [place] [address] Yadiel Garcia PA [address] [facility], [address] [place] [address] [facility] Pain Management ClinicStart: 09-15-2023 End: 50-18-6862Gqyiugltw to same day surgery ojeomg5009/15/2023 7:26 AM EDT - 09/15/2023 7:32 AM EDT Surgery [facility] - Pain P rocedures [address] [place] [address] Roly Dickens MD [address] [place] [address] INJECTION BLOCK SACROILIAC JOINT [45828 (CPT )][facility] - Pain ProceduresComment on above:INJECTION BLOCK SACROILIAC JOINT [32404 (CPT )]Start: 09-15-2023 End: 30-60-5824Gnxdfs si joint arthrgrphy&/anes/steroid w/imaINJECTION BLOCK SACROILIAC JOINT Disorder of sacrum 09/15/2023 7:26 AM EDTFREMONT PAINStart: 58-45-9338Toihzdfbwy hospital visit by ryeuceuix53/05/2024 7:26 AM EDT Hospital Encounter [facility] - Pain Procedures [address] [place] [address] Roly Dickens MD [address] [place] [address] [facility] ProceduresStart: 07-17-2023 End: 20-23-5739Xyuxelo encounter /05/2024 9:15 AM EST Office Visit [facility] IM [address] [place] [address] Shaikh Hahn MD [address] [place] [address] ArrivedNOMS CWM IMComment on above:ArrivedStart: 02-10-2023 COVID-19 Vaccine ()COVID-19 Vaccine () [facility]ertart: 74-49-6140YUfJ,Tdap and Td Vaccines (2 - Tdap) DTaP,Tdap and Td Vaccines (2 - Tdap)[facility] Centertart: 11-18-2022 Screening for malignant neoplasm of breastMammogramNOMS HealthcareStart: 93-62-8550Bqokuyqce for malignant neoplasm of cervixPap SmearNOMS Healthcare Start: 76-53-0532Neafu BMI Follow Up PlanAdult BMI Follow Up PlanProPromedica Flower Hospital SystemStart: 18-56-4970Ofnwamaerd ScreeningDepression ScreeningProPromedica Flower Hospital SystemStart: 75-66-0845Wbzrxqhqb for malignant neoplasm of colonNOMS HealthcareStart: 72-93-6190Hwhxakoss for malignant neoplasm of lungLung Cancer Screening Shared Decision MakingNOMS HealthcareStart: 06-58-2980Bgsrruu CounselingTobacco CounselingCleveland Clinic [facility] System End: 86-32-8808ZbjwtngnjwvDktwgurlkkl GI Routine Rectal bleeding 1 Occurrences starting 12/06/2024 until 12/06/2025[facility] Work Phone: Comment on above:1 Occurrences starting 12/06/2024 until 12/06/2025Patient [facility] Work Phone: THIN PREP TIS PAP AND HR HPV DNATHIN PREP TIS PAP AND HR HPV DNA Pathology and Cytology Routine Well woman exam with routine gynecol ogical exam Ordered: 12/03/2024[facility] HospitalComment on above:Ordered: 12/03/2024 End: 13-70-9408SG Pelvis and Hip - left 2 ViewsX-ray hip left 2-3 views with or without pelvis Imaging Routine Primary osteoarthritis of left hip 1 Occurrences starting 07/09/2024 until 07/09/2025[facility] Work Phone: Comment on above:1 Occurrences starting 07/09/2024 until 07/09/2025XR Pelvis and Hip - left 2 ViewsX-ray hip left 2-3 views with or without pelvis Imaging Routine Primary osteoarthritis of left hip 07/09/2024 1:58 PM [facility] Immunizations Immunization DateImmunizationNotesCare MpdgihezFkopojzw52-56-6026Bzzccmbd, trivalent, recombinant, injectable influenza vaccine, preservative freeLisa Aichholz DELIVERY ASSOCIATE Work Phone: [facility] HospitalHfkiktjpug46-63-3985ffhnrrd toxoid, reduced diphtheria toxoid, and acellular pertussis vaccine, adsorbedLisa Aichholz DELIVERY ASSOCIATE Work Phone: noMer[facility] St[facility] John'sBowvnqvuwt01-21-2222tymcivcvi virus vaccine, unspecified formulationYadiel MUNGUIA Work Phone: [facility]02-05-2024zoster vaccine recombinantLisa Aichholz DELIVERY ASSOCIATE Work Phone: [facility] HospitalFyicgzmbmf33-69-2921peyijt vaccine recombinant Shaikh Jovani ASKEW Work Phone: [facility] HospitalGwiyxbriel07-84-3665Fxfcxzgyafbx Conjugate PCV 20 Shaikh Jovani SAKEW Work Phone: [facility] HospitalMvgrldlgdj05-57-5841Imskbpft, quadrivalent, recombinant, injectable influenza vaccine, preservative Beau Hahn MD Work Phone: [facility] HospitalTypvdpcomb54-51-5223tpthemvwi virus vaccine, unspecified formulationYadiel MUNGUIA Work Phone: [facility] HospitalUigibw62-64-3992kjozsdgsu, injectable, quadrivalent, preservative freeShaikh Jovani ASKEW Work Phone: [facility] HospitalIvwfkdvufv58-85-4235Anovpgskh, injectable, Madin Britton Canine Kidney, preservative free, quadrivalentShaikh Jovani ASKEW Work Phone: [facility] HospitalHdcdyyboua21-10-8536vgfqephic, injectable, quadrivalent, preservative freeShaikh Jovani ASKEW Work Phone: [facility] HospitalBqbfgoifzj15-89-4329frduitchm, seasonal, injectable, preservative freeShaikh Jovani ASKEW Work Phone: [facility] HospitalZjoghtemgu79-60-6185fmbteuqxp, injectable, quadrivalent, preservative Beau Hahn MD Work Phone: [facility] HospitalMqkbktracl44-55-8406foguxrxfc, seasonal, injectable, preservative freeShaikh Jovani ASKEW Work Phone: [facility] HospitalBklhtcqjca61-57-4313uozikfknab, tetanus toxoids and pertussis vaccineSdavid Hahn MD Work Phone: [facility] Payers DatePayer CategoryPayerPolicy [id number] Health [id number] Care Other (unspecified) [id number]27.31934-69-1912[employer] [id number] 1.2.840.608954.1.13.693.2.7.3.967[id number] 2.16.840.1.756271.3.57[id number] 2.16.840.1.686941.3.57[id number] 2.16.840.1.175755.3.57[id number] 2.16.840.1.473732.3.57[id number] 2.16.840.1.360365.3.57[id number] 2.16.840.1.962521.3.57[id number] 2.16.840.1.515094.3.57[id number] 2.16.840.1.604394.3.57[id number] 2.16.840.1.366529.3.57[id number] 2.16.840.1.514441.3.579.[id number] 2.16.840.1.259108.3.579.2.1491[id number] 2.16.840.1.344761.3.57[id number] 2.16.840.1.949739.3.57[id number] 2.16.840.1.043348.3.57[id number] 2.16.840.1.354927.3.57[id number] 2.16.840.1.672752.3.57[id number] 2.16.840.1.927517.3.57[id number] 2.16.840.1.841114.3.579.2.[id number] 2.16.840.1.393302.3.579.2.867429-21-8733Rpzsixc90999606 2.16.840.1.417668.3.579.2.343764-52-0338Zdfqfqj13496705 2.16.840.1.747006.3.579.2.738353-92-8150Czcjhtu37187699 2.16.840.1.808331.3.579.2.247303-14-4657Bipybll19688389 2.16.840.1.508682.3.579.2.240010-10-2862Xjscmhc88378319 2.16.840.1.474513.3.579.2.006245-32-5350Gzadiji86817861 2.16.840.1.478981.3.579.2.581596-56-1678Kmfolgt90564295 2.16.840.1.113341.3.579.2.763918-75-6477Bkdylob42828103 2.16.840.1.507345.3.579.2.210981-22-9516Cvtqrdb1471946 2.16.840.1.428984.3.579.2.335626-67-3529Zczohnn4678898 2.16.840.1.657334.3.579.2.516604-75-2171Bheeybq6385421 2.16.840.1.478726.3.57[id number] 2.16.840.1.660462.3.579.2.955751-55-8972Ygsytyo Health [id number] Social History DateTypeDetailFacilityStart: 01-29-2023 End: 94-76-5287Wplnnnt smoking status NHISSmokes tobacco dailyNOMS Healthcare Start: [birth year]-12-1981 End: 14-96-5302Bghtpku of tobacco useCigarette SmokerNONE HealthcareStart: 01-29-2023 End: 58-08-1205Ccqoitqhqr smoked current (pack per day) - Csutgpzp7TCWT HealthcareStart: 06-29-2023 End: 95-97-6081Mghvsug intakeLifetime non-drinker (finding)[facility] HealthcareStart: 01-29-2023 End: 70-98-9913Tlenjoq use panelNONE HealthcareStart: 47-98-0761Agxowgc Comment Caffeine: noneNOMS HealthcareStart: 03-54-4301Ikn Assigned At BirthNot on file [facility] HealthcareStart: 12-28-2023 End: 42-81-3573Joippxi smoking status NHISEx-smokerNOMS HealthcareStart: 06-12-1982 End: 18-58-4733Wbzgsel of tobacco useCurrent smokerNOMS HealthcareHistory of tobacco usePassive smokerNOMS HealthcareStart: 12-28-2023 End: 43-45-3009Xwmarwq use and exposureSmokeless tobacco non-userAccess Hospital [facility] SystemStart: 07-09-2024 End: 01-33-1266Wreyfihzh beverage intakeEx-drinker (finding)[facility] SystemStart: 32-46-2915Xbljmngyy of Alcohol ConsumptionNeverC[facility] SystemStart: 03-48-4697EwyQkgrgu (finding)[facility] SystemStart: 10-03-2023 End: 91-48-8869Xhoeivocf beverage intakeCurrent drinker of alcohol (finding) [facility] SystemStart: 23-30-3756Eksxxjp CommentrarelyPMercy Health – The Jewish [facility] SystemStart: 43-51-3105Owu Assigned At [facility] Medical Equipment Procedure CodeEquipment CodeEquipment Original TextEquipment IdentifierDates Cement Bn Bio 40gm Rpl [id number] - [id number]: 94-08-8332Anamns Bn Bio 40gm Rpl [id number] - [id number] Start: 94-47-6364Yudknoonv Ptlr 32mm Persona Alply Kn Strl Lf - [id number]: 33-57-1184Whlyplzri Fem 8 Cristopher Kn Rt Post Stab Cmnt Persona Cocr Strl - [id number]: 37-81-1688Nqcibm Artc 6-9 Cd 10mm Kn Rt Post Stab Pe Persona - [id number]: 06-79-5632Tnbvvfjbn Tib 5d D Kn Rt Cmnt Stm Persona Tiv Strl - [id number]: 09-02-2021 Goals DatePatient GoalDesired Activity/StatePersonal health goal Functional Status JxyrLbtkufdlfdPrhujyFmstfjdo95-93-4700Nzzniyo Health Questionnaire 2 item (PHQ- 2) [Reported][facility] Clinical Notes 07-17-2023 to 02-25-2025 Note Date & QfggNxswTlzhycqy60-84-3557 Evaluation note* Diagnosis Onset Date Resolution Status Admit Date Class 1 obesity due to excess calories i n adult acuteSeptember 2024 8:44amDizziness and giddinessacuteSeptember 2024 8:44amEssential (primary) hypertensionacuteSeptember 2024 8:44amMajor depressive disorder, single episode in full remissionacuteSeptember 2024 8:44amNicotine dependenceacuteSeptember 2024 8:44amOSA (obstructive sleep apnea)acuteSeptember 2024 8:44amClass 1 obesity due to excess calories in adultacuteNov2024 11:36amEmphysema, unspecifiedacuteNovember 2024 11:36amEssential (primary) hypertensionacuteNovember 2024 11:36am Nicotine dependenceacuteNovember 2024 11:36amSinusitis, acuteacuteNovember 2024 11:36am [facility] Work Phone: [phone] 908-602408-27-2025 Miscellaneous Notes* Telephone Encounter - Linda Calderon RN - 02/05/2025 1:39 PM EDT Last Office Visit: 09/26/2024 Next Office Visit: Visit date not found Last Urine Drug Screen: No results found for: BENZOSCRN OARRS appropriate [facility] Telephone encounter Note* Telephone Encounter - Linda Calderon RN - 02/05/2025 1:39 PM EDT Last Office Visit: 09/26/2024 Next Office Visit: Visit date not found Last Urine Drug Screen: No results found for: BENZOSCRN OARRS appropriate [facility]08-[facility] History of Present illness Narrative* Estefany Garcia NP - 01/20/2025 5:27 PM EDTAssociated Problem(s): Class 1 obesity due to excess calories without serious comorbidity in adult Discussed with patient their BMI (actual, verses recommended). We have also discussed lifestyle modifications: attempts to perform physical activity as chronic conditions allow, also to monitor dietary intake: increasing protein/fruits/veggies and lowering carb intake (unless contraindicated). Limit sodas, juices, and sugary drinks. * Estefany Garcia NP - 01/20/2025 5:27 PM EDTAssociated Problem(s): Primary hypertension Please check blood pressure daily and record DASH diet Limit caffeine Take medication as directed Contact office if chest pain, pressure, dizziness, shortness of breath, swelling legs Recommend slow position changes Current med: hydrochlorothiazide * Estefany Garcia NP - 01/20/2025 5:27 PM EDTAssociated Problem(s): Dizziness and giddiness Reviewed ER notes Will trial medrol dose pack Advised s/s stroke No other acute findings on exam Pt is to contact the office if not better by 01/23/25 * DEBO PATE - 01/20/2025 3:00 PM EDT Pt states the dizziness and the lightheadedness has been an all day every day issues for a week now Pt is having headaches daily above one eye or the other. Pt slept for 17hrs yesterday. No issues with vision. [place] in the heat, pt knows she does not drink enough water. Pt has had no falls but is getting unsteady and wobbly No pressure in the chest no SOB Pt was in ER on and stopped the antibiotic on Pt was prescribed meclizine for dizziness/vertigo pt states that it has not helped with the dizziness but makes her very sleepy No complaints of heart palpitations or chest pain or racy BP runs at home 120/80 Sinus issues are gone from her sinuitis * Estefany Garcia NP - 01/20/2025 3:00 PM EDT Images from the original note were not included. Cristofer Heath is a 64 y.o. female presents with chief complaint of Dizziness HPI: Pt states the dizziness and the lightheadedness has been an all day every day issues for a week now Pt is having headaches daily above one eye or the other. Pt slept for 17hrs yesterday. No issues with vision. [place] been outside at the beach most of the time in the heat, pt knows she does not drink enough water. Pt has had no falls but is getting unsteady and wobbly No pressure in the chest no SOB Pt was in ER on and stopped the antibiotic on Pt was prescribed meclizine for dizziness/vertigo pt states that it has not helped with the dizziness but makes her very sleepy No complaints of heart palpitations or chest pain or racy BP runs at home 120/80 Sinus issues are gone from her sinuitis Dizziness: can feel like spinning/waves, and head rash Dizziness This is a recurrent problem. The current episode started 1 to 4 weeks ago. The problem occurs intermittently. The problem has been gradually worsening. Associated symptoms include fatigue, headaches,nausea, vertigo and vomiting. Pertinent negatives include no abdominal pain, anorexia, arthralgias,chest pain, chills, congestion, coughing, fever, joint swelling, myalgias, rash, sore throat, urinary symptoms, visual change or weakness. Exacerbated by: lying/sitting/standing. Treatments tried: antivert makes really tired. The treatment provided mild relief. SUBJECTIVE: MEDICATIONS: Current Outpatient Medications Medication Instructions albuterol HFA 90 mcg/act inhaler 1 puff, Inhalation, Every 4 hours PRN alendronate (FOSAMAX) 35 mg, Oral, Every 7 days, Take in the morning with a full glass of water, ross empty stomach, and do not take anything else by mouth or lie down for the next 30 min. atorvastatin (LIPITOR) 20 mg, Oral, Nightly buPROPion XL (WELLBUTRIN XL) 150 mg, Oral, Every morning calcium carbonate (Super Calcium) 1500 (600 Ca) MG tablet 2 times daily with meals cholecalciferol (VITAMIN D-3) 400 Units, Daily diclofenac (CATAFLAM) 50 mg, 2 times daily EPINEPHrine (EpiPen 2-Elliot) 0.3 MG/0.3ML injection syringe Once FLUoxetine (PROZAC) 10 mg, Oral, Daily fluticasone (Flonase) 50 MCG/ACT nasal spray 2 sprays, Each Nostril, Daily hydroCHLOROthiazide (HYDRODIURIL) 12.5 mg, Oral, Daily meclizine (ANTIVERT) 25 mg, 3 times daily PRN melatonin 10 mg, Nightly methylPREDNISolone (Medrol Dospak) 4 MG tablets Follow schedule on package instructions traZODone (DESYREL) 50 mg, Oral, Nightly ALLERGIES: [...] REVIEW OF SYMPTOMS: Review of Systems Constitutional: Positive for fatigue. Negative for appetite change, chills and fever. HENT: Negative for congestion, ear pain and sore throat. Eyes: Negative for pain, discharge, redness and visual disturbance. Respiratory: Negative for cough, shortness of breath and wheezing. Cardiovascular: Negative for chest pain, palpitations and leg swelling. Gastrointestinal: Positive for nausea and vomiting. Negative for abdominal pain, anorexia, blood instool, constipation and diarrhea. Genitourinary: Negative for difficulty urinating, dysuria and frequency. Musculoskeletal: Negative for arthralgias, back pain, joint swelling and myalgias. Skin: Negative for rash and wound. Neurological: Positive for dizziness, vertigo and headaches. Negative for tremors, seizures, syncope and weakness. Psychiatric/Behavioral: Negative for behavioral problems, self-injury and [...] SURGICAL HISTORY 1982 reconstruction of B-cornia uterus CO CYSTO/PYELOSCOPY RESCJ PELVIC TUMOR 2014 resection renal pelvic tumor CO REMOVE TONSILS/ADENOIDS,<12 Y/O 1968 family history includes Cancer in her mother; Diabetes in her father, maternal grandfather, maternal grandmother, paternal grandfather, and paternal grandmother; Heart disease in her maternal grandfather and paternal grandfather; Hypertension in her mother; Liver disease in her father; bladder cancer in her mother. OBJECTIVE: Visit Vitals BP 136/80 (BP Location: Left arm, Patient Position: Sitting, BP Cuff Size: Adult long) Pulse 76 Temp 98 F (Temporal) Resp 16 Wt 182 lb SpO2 97% BMI 31.24 kg/m OB Status Hysterectomy Smoking Status Former BSA 1.93 m Physical Exam Vitals and nursing note reviewed. Constitutional: General: She is not in acute distress. Appearance: Normal appearance. She is obese. She is not ill-appearing. HENT: Head: Normocephalic and atraumatic. Right Ear: Tympanic membrane, ear canal and external ear normal. Left Ear: Tympanic membrane, ear canal and external ear normal. Nose: Nose normal. No congestion or rhinorrhea. Mouth/Throat: Mouth: Mucous membranes are moist. Pharynx: No oropharyngeal exudate or posterior oropharyngeal erythema. Eyes: Extraocular Movements: Extraocular movements intact. Conjunctiva/sclera: Conjunctivae normal. Pupils: Pupils are equal, round, and reactive to light. Comments: No nystagmus Neck: Vascular: No carotid bruit. Cardiovascular: Rate and Rhythm: Normal rate and regular rhythm. Pulses: Normal pulses. Heart sounds: Normal heart sounds. No murmur heard. Pulmonary: Effort: Pulmonary effort is normal. Breath sounds: Normal breath sounds. No wheezing or rhonchi. Abdominal: General: Bowel sounds are normal. There is no distension. Palpations: Abdomen is soft. There is no mass. Tenderness: There is no abdominal tenderness. Musculoskeletal: General: Normal range of motion. Cervical back: Normal range of motion and neck supple. Right lower leg: No edema. Left lower leg: No edema. Comments: MMT 5/5 bilat LE/UE Lymphadenopathy: Cervical: No cervical adenopathy. Skin: General: Skin is warm and dry. Capillary Refill: Capillary refill takes 2 to 3 seconds. Findings: No rash. Neurological: General: No focal deficit present. Mental Status: She is alert and oriented to person, place, and time. Comments: Neg ulnar drift, mild swaying with romberg Psychiatric: Mood and Affect: Mood normal. Behavior: Behavior normal. Thought Content: Thought content normal. Judgment: Judgment normal. ASSESSMENT AND PLAN: Follow up for Next scheduled follow-up. Problem List Items Addressed This Visit Primary hypertension Please check blood pressure daily and record DASH diet Limit caffeine Take medication as directed Contact office if chest pain, pressure, dizziness, shortness of breath, swelling legs Recommend slow position changes Current med: hydrochlorothiazide Seasonal allergies Relevant Medications fluticasone (Flonase) 50 MCG/ACT nasal spray Class 1 obesity due to excess calories without serious comorbidity in adult Discussed with patient their BMI (actual, verses recommended). We have also discussed lifestyle modifications: attempts to perform physical activity as chronic conditions allow, also to monitor dietary intake: increasing protein/fruits/veggies and lowering carb intake (unless contraindicated). Limit sodas, juices, and sugary drinks. Dizziness and giddiness - Primary Reviewed ER notes Will trial medrol dose pack Advised s/s stroke No other acute findings on exam Pt is to contact the office if not better by 01/23/25 Relevant Medications methylPREDNISolone (Medrol Dospak) 4 MG tablets documented in this encounterCedar County Memorial HospitalEscqkxqutb16-12-6926 Instructions* Patient Instructions* Estefany Garcia NP - 01/20/2025 3:00 PM EDT Medrol dose pack: take with food May try cutting meclizine in half documented in this encounterCedar County Memorial HospitalKvasunrlov25-40-5172 Miscellaneous Notes* Telephone Encounter - Morenita Mckoy CMA - 12/25/2024 10:39 AM EDT ----- Message from Jessica Maynard MD sent at 12/25/2024 8:20 AM EDT ----- Regarding: Path Please let patient know that polyp removed was benign. Repeat colonoscopy in 10 years. Thank you ----- Message ----- From: Alvaro, Background User Sent: 12/24/2024 8:13 PM EDT To: Jessica Maynard MD * Telephone Encounter - Morenita Mckoy CMA - 12/25/2024 10:39 AM EDT Spoke with patient regarding pathology results. Patient verbally understood with no further questions. Recall put in chart. documented in this encounterDun[facility]07-16-2025 Telephone encounter Note* Telephone Encounter - Morenita Mckoy CMA - 12/25/2024 10:39 AM EDT ----- Message from Jessica Maynard MD sent at 12/25/2024 8:20 AM EDT ----- Regarding: Path Please let patient know that polyp removed was benign. Repeat colonoscopy in 10 years. Thank you ----- Message ----- From: Alvaro, Background User Sent: 12/24/2024 8:13 PM EDT To: Jessica Maynard MD [facility]07-16-[facility] Telephone encounter Note* Telephone Encounter - Morenita Mckoy CMA - 12/25/2024 10:39 AM EDT Spoke with patient regarding pathology results. Patient verbally understood with no further questions. Recall put in chart. [facility]06-27-[facility] History of Present illness Narrative* Michell Cowan, PREDATORY HUNTER-REFERENCE AND INSTRUCTION LIBRARIAN - 12/06/2024 10:30 AM EDT Images from the original note were not included. Chief Complaint: Rectal bleeding History of Present Illness Cristofer Heath is a 64 y.o. female who presents to the office for rectal bleeding. She states a few weeks ago she had diarrhea followed by 1 episode of bright red blood in the toilet bowl. No symptoms since then. She denies any constipation, diarrhea, fever, abdominal pain. She believes she had acolonoscopy 3-4 years ago. States this was a normal study. Can not remember exactly where it was done. Review of Systems Constitutional: Negative for fever and unexpected weight change. HENT: Negative for trouble swallowing. Respiratory: Negative for shortness of breath. Cardiovascular: Negative for chest pain. Gastrointestinal: Positive for blood in stool. Negative for nausea, vomiting, abdominal pain, diarrhea and constipation. Genitourinary: Negative for dysuria and difficulty urinating. Musculoskeletal: Negative for gait problem. Skin: Negative for rash and wound. Neurological: Negative for dizziness, weakness and light-headedness. Hematological: Does not bruise/bleed easily. Psychiatric/Behavioral: Negative for confusion. 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 Liver disease alpha antitrypsin Low back pain Neck pain Obesity Osteoporosis Right flank pain Sleep apnea CPAP Spontaneous Visual impairment Past Surgical History: Procedure Laterality Date APPENDECTOMY SECTION 1986, 1988 CYST REMOVAL Right 1980 ganglion CYSTOSCOPY - Bilateral Retrogrades Bilateral 04/03/2018 Performed by Chepe Bustamante MD at [facility] AMBULATORY SURGERY CYSTOSCOPY W/ URETERAL STENT PLACEMENT 2014 x 2 DILATION AND CURETTAGE OF UTERUS 1981, 1983 HYSTERECTOMY 1997 total INJECTION BLOCK EPIDURAL CAUDAL STEROID N/A 03/22/2024 Performed by Roly Dickens MD at [facility] INJECTION BLOCK EPIDURAL CAUDAL STEROID N/A 10/21/2022 Performed by Roly Dickens MD at [facility] INJECTION BLOCK EPIDURAL CAUDAL STEROID N/A 09/23/2022 Performed by Roly Dickens MD at [facility] INJECTION BLOCK SACROILIAC JOINT Bilateral 09/06/2024 Performed by Roly Dickens MD at [facility] INJECTION BLOCK SACROILIAC JOINT Left 04/26/2024 Performed by Roly Dickens MD at [facility] INJECTION BLOCK SACROILIAC JOINT Bilateral 02/09/2024 Performed by Roly Dickens MD at [facility] INJECTION BLOCK SACROILIAC JOINT Bilateral 09/15/2023 Performed by Roly Dickens MD at [facility] INJECTION BLOCK SACROILIAC JOINT Bilateral 2023 Performed by Roly Dickens MD at [facility] INJECTION BLOCK SACROILIAC JOINT Bilateral 12/23/2022 Performed by Roly Dickens MD at [facility] INJECTION BURSA LARGE JOINT: left hip Left 06/21/2024 Performed by Roly Dickens MD at [facility] OOPHORECTOMY OTHER SURGICAL HISTORY 1982 uterus reconstruction REPLACEMENT TOTAL JOINT KNEE Right 09/02/[address] Sylvester MD at [facility] TONSILLECTOMY Allergies Allergen Reactions Avelox [Moxifloxacin] Nausea and Vomiting Bee Venom Protein (Honey Bee) Anaphylaxis Codeine Nausea and Vomiting Ultram [Tramadol] Nausea and Vomiting Bactrim [Sulfamethoxazole-Trimethoprim] Rash Cephalosporins Rash Current Outpatient Medications: alendronate (FOSAMAX) 35 mg tablet, Take 10 mg by mouth once a week., Disp: , Rfl: atorvastatin (LIPITOR) 20 mg tablet, Take 1 tablet (20 mg total) by mouth nightly., Disp: , Rfl: buPROPion XL (WELLBUTRIN XL) 150 mg 24 hr tablet, Take 1 tablet (150 mg total) by mouth every morning., Disp: , Rfl: cholecalciferol (VITAMIN D3) 1,000 units tablet, TAKE 1 TABLET BY MOUTH TWICE DAILY (MORNING AND EVENING) WITH MEALS, Disp: 60 tablet, Rfl: 0 diclofenac (CATAFLAM) 50 mg tablet, Take 1 tablet (50 mg total) by mouth in the morning and 1 tablet (50 mg total) before bedtime., Disp: 180 tablet, Rfl: 0 EPIPEN 2-ELLIOT 0.3 mg/0.3 mL auto-injector, , Disp: , Rfl: FLUoxetine (PROzac) 20 mg capsule, Take 1 capsule (20 mg total) by mouth nightly., Disp: , Rfl: hydroCHLOROthiazide (HYDRODIURIL) 12.5 mg tablet, Take 1 tablet (12.5 mg total) by mouth daily., Disp: , Rfl: melatonin (CIRCADIN) 5 mg tablet, Take 2 tablets (10 mg total) by mouth nightly., Disp: , Rfl: traZODone (DESYREL) 50 mg tablet, Take 1 tablet (50 mg total) by mouth nightly., Disp: , Rfl: peg 3350-sod sulf,jtps-rra-zlf 178.7-7.3-0.5 gram recon soln, Take 1 kit by mouth in the morning for 1 dose. Please see instructional sheet given by physicians office., Disp: 1 each, Rfl: 0 Social History Socioeconomic History Marital status: Spouse [...] on file Food Insecurity: No Food Insecurity (09/26/2024) Hunger Screening Food Insecurity - Worry: Never True Food Insecurity - Inability: Never True Transportation Needs: Not on file Physical Activity: Not on file Stress: Not on file Social Connections: Not on file Interpersonal Safety: Not on file Housing Instability: Not on file Family History Problem Relation Age of Onset Cancer Mother bladder Liver disease Father alpha antitrypsin Diabetes Sister Diabetes Brother Leukemia Brother Diabetes Daughter Obesity Daughter Diabetes Daughter Multiple sclerosis Daughter Heart attack Paternal Grandfather Objective Physical Exam Constitutional: General: She is not in acute distress. Appearance: Normal appearance. She is not ill-appearing. HENT: Head: Normocephalic and atraumatic. Mouth/Throat: Mouth: Mucous membranes are moist. Eyes: Pupils: Pupils are equal, round, and reactive to light. Cardiovascular: Rate and Rhythm: Normal rate and regular rhythm. Pulmonary: Effort: Pulmonary effort is normal. No respiratory distress. Abdominal: General: There is no distension. Musculoskeletal: General: Normal range of motion. Skin: General: Skin is warm and dry. Neurological: Mental Status: She is alert and oriented to person, place, and time. Mental status is at baseline. Vital Signs: Blood pressure 137/64, pulse 61, weight 85.4 kg (188 lb 3.2 oz), not currently . Respiratory Source: No data recorded Admission Weight: Weight: 85.4 kg (188 lb 3.2 oz) Labs Lab Results Component Value Date WBC 7.3 02/03/2023 HGB 14.9 02/03/2023 HCT 43.8 02/03/2023 MCV 93 02/03/2023 PLT 354 02/03/2023 Lab Results Component Value Date GLU 89 02/03/2023 CALCIUM 9.1 02/03/2023 K 4.1 02/03/2023 CO2 29 02/03/2023 CL 105 02/03/2023 BUN 19 02/03/2023 CREATININE 0.66 02/03/2023 No results found for: AMYLASE Lab Results Component Value Date LIPASE 25 06/03/2021 Lab Results Component Value Date ALT 14 02/03/2023 AST 13 02/03/2023 ALKPHOS 99 02/03/2023 No results found for: INR , PROTIME Assessment Cristofer Heath is a 64 y.o.female with bright red blood per rectum. Plan Colonoscopy with possible biopsy and/or polypectomy. Risks, benefits, and alternatives discussed with patient. Patient verbalizes understanding and wishes to proceed. Evaluation included: Preparing to see the patient (e.g., review of tests) Obtaining and/or reviewing separately obtained history Performing a medically appropriate examination and/or evaluation Counseling and educating the patient/family/caregiver Referring and communicating with other health child care lead teacher Rectal bleeding [K62.5] MICHELL COWAN, PREDATORY HUNTER-REFERENCE AND INSTRUCTION LIBRARIAN [facility] [place] This note was created with the assistance of a speech recognition program. While intending to generate a timely document that accurately reflects the content of the visit, no guarantee can be provided that every grammatical or spelling mistake has been or will be identified or corrected. Thank you for your understanding. ELAINE Tate 12/06/24 1104 documented in this encounterDunlap Memorial Hospital06-24-2025 History of Present illness Narrative* Cassandraadam Zamora, KELTON - 12/03/2024 10:00 AM EDT Reason for Appointment: Patient ID: Cristofer Heath is a 64 [...] 50 mg, 2 times daily EPINEPHrine (EpiPen 2-Elliot) 0.3 MG/0.3ML injection syringe Once FLUoxetine (PROZAC) [...] SURGICAL HISTORY 1982 reconstruction of B-cornia uterus CO CYSTO/PYELOSCOPY RESCJ PELVIC TUMOR 2014 resection renal pelvic tumor CO REMOVE TONSILS/ADENOIDS,<12 Y/O 1967 REVIEW OF SYSTEMS Review of Systems: Review [...] nursing note reviewed. Exam conducted with a clinical exercise physiologist present. Vitals: Estimated body mass index is 32.53 kg/m as calculated from the following: Height as [...] them. Patient can also view results via [employer]. I reinforced importance of condom use for [...] of: Alexis Rubalcava DO documented in this encounterCedar County Memorial [id number] History of Present illness Narrative* Mer Irby APRN-REFERENCE AND INSTRUCTION LIBRARIAN - 11/26/2024 10:55 AM EDT Lesions: Location: [...] limited to risks of scarring, darker or pot room supervisor pigmentary changes, recurrence, incomplete removal and infection. [...] rec pt schedule FBSE documented in this encounterCedar County Memorial [id number] History of Present illness Narrative* Estefany Gracia NP - 11/21/2024 9:03 AM EDTAssociated Problem(s): Colon cancer screening 1 episode of blood diarrhea Normally constipation, will refer for colonscopy Bees * DEBO PATE - 11/21/2024 8:40 AM EDT Mole on back itching frequently she tends to scratch it often- scabs and bleeds * Estefany Garcia NP - 11/21/2024 8:40 AM EDT Images from the original note were not included. Cristofer Heath is a 64 y.o. female presents with [...] compliance problems. There is no history of CAD/ND, heart failure or PVD. SUBJECTIVE: MEDICATIONS: Current Outpatient Medications Medication Instructions albuterol HFA 90 mcg/act inhaler 1 puff, Inhalation, Every 4 hours PRN alendronate (FOSAMAX) 35 mg, Oral, Every 7 days atorvastatin (LIPITOR) 20 mg, Oral, Nightly buPROPion XL (WELLBUTRIN XL) 150 mg, Oral, Every morning diclofenac (CATAFLAM) 50 mg, 2 times daily EPINEPHrine (EpiPen 2-Elliot) 0.3 MG/0.3ML injection syringe Once FLUoxetine (PROZAC) [...] Procedure Laterality Date APPENDECTOMY 1974 BOTOX INJECTION 2013 neck SECTION, LOW TRANSVERSE [1986. 1988] DILATION AND CURETTAGE [1981, 1983] HYSTERECTOMY OTHER SURGICAL HISTORY 1980 r/o ganglion cyst on wrist OTHER SURGICAL HISTORY 1983 reconstruction of B-cornia uterus CO CYSTO/PYELOSCOPY RESCJ PELVIC TUMOR 2014 resection renal pelvic tumor CO REMOVE TONSILS/ADENOIDS,<12 Y/O 1968 family history includes [...] Size: Adult long) Pulse 69 Temp 97.8 F (Temporal) Resp 18 Wt 187 lb 6.4 oz SpO2 97% BMI 32.17 kg/m Smoking Status Former BSA 1.96 m Physical Exam Vitals and nursing note reviewed. [...] 3 seconds. Findings: Lesion (left flank area 05mgP8js linear, irregular borders various color) present. No [...] machine and tubing/filters etc: Total Respiratory Provider; [facility] Class 1 obesity due to excess calories [...] of the risks of continued smoking: stroke, ND, all forms of cancer, lung disease, and [...] of the risks of continued smoking: stroke, ND, all forms of cancer, lung disease, and [...] Total Respiratory Provider; Jeff documented in this [facility]06-12-2025 Instructions* Patient Instructions* Estefany Garcia NP - 11/21/2024 8:40 AM EDT No med changes Referrals : dermatology and general surgery, if no call from them in 2 weeks let me know documented in this [facility]04-17-2025 History of Present illness Narrative* Ines Donahue RN - 09/26/2024 10:45 AM EDT [facility] [address] [place] [address] Patient: Cristofer Heath Sex: female : 1960 Age: 64 y.o. PCP: SHAIKH JOVANI MD 09/26/2024 Cristofer Heath is here for a(n) post procedure follow up 09/06/2024 Bilateral Sacroiliac Joint Injection with 90% relief x 2 days and still getting 50% relief today. . Date of onset of pain: 2022 , pain has lasted greater than 3 months. Pain scale before treatment: 10/10 Pre-op pain score: 10/10 Post-op pain score: 4/10 2 hour post-op pain score: 1/10 4 hour post-op pain score: 1/10 Percentage and duration of relief after treatment: 90% relief x 1-2 days; 50% currently Pain scale after treatment: 06/21 No chief complaint on file. HPI: PT/HEP 07/2022 not helpful Back: 09/23/22 [...] x 2 days, then 70% continued relief. Patient'spre op pain 6-/ to 06/2106/21/24 left hip injection with 100% relief for two weeks 09/06/2024 Bilateral Sacroiliac Joint Injection with 90% relief x 2 days and still getting 50% relief today. Hip Pain The incident occurred more than 1 week ago. There was no injury mechanism. The pain is present in the left hip. The quality of the pain is described as aching. The pain is at a severity of 0/10 (no complaints today). The patient is experiencing no pain. The pain has been Fluctuating since onset. Associated symptoms include numbness (left toes/ankle when walking at [employer]) and tingling (left toes/ankle when walking at [employer]). The symptoms are aggravated by movement. Treatments tried: tylenol with mild relief, tramadol, metocarbomal moderate relief. Back Pain This is a chronic problem. The current episode started more than 1 year ago (@ 2019). The problem occurs constantly (worsens with activity). The problem has been gradually improving since onset. The pain is present in the lumbar spine. The quality of the pain is described as aching. The pain does not radiate. The pain is at a severity of 10/10 (currently 3/10, pain can reach 10/10). The pain is severe (to severe). The pain is The same all the time. The symptoms are aggravated by standing, bending and twisting (walking). Stiffness is present: na. Associated symptoms include numbness (left toes/ankle when walking at [employer]) and tingling (left toes/ankle when walking at [employer]). Pertinent neg atives include no abdominal pain, bladder incontinence, bowel incontinence, chest pain, fever, leg pain or weakness. Risk factors include poor posture, obesity and lack of exercise. Treatments tried:PT/HEP 07/2022, rest, ice/heat, meds: NSAIDs (mobic, celebrex), [...] 04/03/2018 Performed by Chepe Bustamante MD at [facility] SURGERY CYSTOSCOPY W/ URETERAL STENT PLACEMENT 2014 x 2 DILATION AND CURETTAGE OF UTERUS 1981, 1983 HYSTERECTOMY 1996 total INJECTION BLOCK EPIDURAL CAUDAL STEROID N/A 03/22/2024 Performed by Roly Dickens MD at [facility] INJECTION BLOCK EPIDURAL CAUDAL STEROID N/A 10/21/2022 Performed by Roly Dickens MD at [facility] INJECTION BLOCK EPIDURAL CAUDAL STEROID N/A 09/23/2022 Performed by Roly Dickens MD at [facility] INJECTION BLOCK SACROILIAC JOINT Bilateral 09/06/2024 Performed by Roly Dickens MD at [facility] INJECTION BLOCK SACROILIAC JOINT Left 04/26/2024 Performed by Roly Dickens MD at [facility] INJECTION BLOCK SACROILIAC JOINT Bilateral 02/09/2024 Performed by Roly Dickens MD at [facility] INJECTION BLOCK SACROILIAC JOINT Bilateral 09/15/2023 Performed by Roly Dickens MD at [facility] INJECTION BLOCK SACROILIAC JOINT Bilateral 2023 Performed by Roly Dickens MD at [facility] INJECTION BLOCK SACROILIAC JOINT Bilateral 12/23/2022 Performed by Roly Dickens MD at [facility] BURSA LARGE JOINT: left hip Left 06/21/2024 Performed by Roly Dickens MD at [facility] OOPHORECTOMY OTHER SURGICAL HISTORY 1982 uterus reconstruction REPLACEMENT TOTAL JOINT KNEE Right 09/02/[address] MD at [facility] TONSILLECTOMY Allergies Allergen Reactions Avelox [Moxifloxacin] [...] date: 06/12/1982 Quit date: 09/2023 Years since quittin.0 Smokeless tobacco: Never Vaping Use Vaping status: Never Used Substance and Sexual Activity Alcohol use: Not Currently Drug use: No Sexual activity: Defer Partners: Male Other Topics Concern Not on file Social History Narrative Not on file Social Drivers of Health Financial Resource Strain: Not on file Food Insecurity: No Food Insecurity (09/26/2024) Hunger Screening Food Insecurity - Worry: Never True Food Insecurity - Inability: Never True Transportation Needs: Not on file Physical Activity: Not on file Stress: Not on file Social Connections: Not on file Interpersonal Safety: Not on file Housing Instability: Not on file Review of Systems Constitutional: Negative. Negative for fever. HENT: Negative. Eyes: Negative. Respiratory: Negative. Cardiovascular: Negative. Negative for chest pain. Gastrointestinal: Negative. Negative for abdominal pain and bowel incontinence. Endocrine: Negative. Genitourinary: Negative. Negative for bladder incontinence. Musculoskeletal: Positive for back pain. Skin: Negative. Neurological: Positive for tingling (left toes/ankle when walking at [employer]) and numbness (left toes/ankle when walking at [employer]). Negative for weakness. Psychiatric/Behavioral: Negative. Vital Signs: BP 122/77 (BP Site: Right Arm, BP Postition: Sitting) Pulse 72 Resp 18 Ht 160 cm (5' 3 ) Wt89.4 kg (197 lb) SpO2 95% BMI 34.90 kg/m Physical Exam: GENERAL - Healthy patient [...] during discussion, demonstrated appropriate cognitive reasoning and understandingof the medical condition by asking appropriate questions [...] spine and paraspinal musculature. Pain is elicited withflexion, extension, and lateral rotation of the lumbar [...] is negative. Gait is normal. Assessment/Treatment Plan: Diagnoses and all orders for this visit: Lumbosacral spondylosis without myelopathy Other orders - diclofenac (CATAFLAM) 50 mg tablet; Take 1 tablet (50 mg total) by mouth in the morning and 1 tablet (50 mg total) before bedtime. Refill Diclofenac 50 mg BID Monitor Follow up 6-8 weeks The medications I have prescribed have been reviewed for medication interactions/contraindications and/or for upcoming procedures: continue current medication regimen without any changes. DISCUSSION: Treatment options discussed with patient and all questions answered to patient's satisfaction. The patient has been instructed as to the [...] monitoring for toxicity We do not currently prescribeany controlled substance from this practice. Treatment plans discussed but not opted for at this time: Caudal MI. Pain is under adequate control. It does appear that the patient benefited from the previous injection and the benefit has continuedthrough this visit. At this time, we will monitor the patient s symptoms from an interventional standpoint and consider another injection in the future if the patient s symptoms return or intensify severely. The patient was made aware that they should call if symptoms worsen or if their pain beginsto have a negative impact on their quality of life and activities of daily living again. The spine model was demonstrated and MRI was reviewed and used to explain the condition. OARRS: Reviewed. Scribe Statement: Estefany So CNA, scribed for and in the presence of NILDA TURNER who performed the above service. Estefany Hoffman CNA 09/26/24 1314 documented in this encounterDunlap Memorial Hospital03-20-2025 History of Present illness Narrative* NILDA Turner - 08/29/2024 10:45 AM EDT [facility] [address] [place] [address] Patient: Cristofer Heath Sex: female : 1960 Age: 64 y.o. PCP: SHAIKH JOVANI MD 08/29/2024 Cristofer Heath is here for a follow up to [...] x 2 days, then 70% continued relief. Patient'spre op pain 6-10/10 to 06/2106/21/24 left hip [...] Fluctuating since onset. Associated symptoms include tingling (rightfoot tingly occasionally when walking, not always). Pertinent negatives include no numbness. The symptoms are aggravated by movement. Treatments tried: tylenol with mild relief, tramadol, metocarbomal moderate relief. Back Pain This is a chronic problem. The current episode started more than 1 year ago (@ 2020). The problem occurs constantly (worsens with activity). [...] na. Associated symptoms include tingling (right foot tinglyoccasionally when walking, not always). Pertinent negatives include no abdominal pain, bladder incontinence, bowel incontinence, chest pain, fever, leg pain, numbness or weakness. Risk factors include poor posture, obesity and lack of exercise. Treatments tried: PT/HEP 07/2022, rest, ice/heat, meds:NSAIDs (mobic, celebrex), tylenol, baclofen, volteran with little [...] 04/03/2018 Performed by Chepe Bustamante MD at [facility] SURGERY CYSTOSCOPY W/ URETERAL STENT PLACEMENT 2013 x 2 DILATION AND CURETTAGE OF UTERUS 1981, 1983 HYSTERECTOMY 1997 total INJECTION BLOCK EPIDURAL CAUDAL STEROID N/A 03/22/2024 Performed by Roly Dickens MD at [facility] INJECTION BLOCK EPIDURAL CAUDAL STEROID N/A 10/21/2022 Performed by Roly Dickens MD at [facility] INJECTION BLOCK EPIDURAL CAUDAL STEROID N/A 09/23/2022 Performed by Roly Dickens MD at [facility] INJECTION BLOCK SACROILIAC JOINT Left 04/26/2024 Performed by Roly Dickens MD at [facility] INJECTION BLOCK SACROILIAC JOINT Bilateral 02/09/2024 Performed by Roly Dickens MD at [facility] INJECTION BLOCK SACROILIAC JOINT Bilateral 09/15/2023 Performed by Roly Dickens MD at [facility] INJECTION BLOCK SACROILIAC JOINT Bilateral 2023 Performed by Roly Dicknes MD at [facility] INJECTION BLOCK SACROILIAC JOINT Bilateral 12/23/2022 Performed by Roly Dickens MD at [facility] JOINT: left hip Left 06/21/2024 Performed by Roly Dickens MD at [facility] OOPHORECTOMY OTHER SURGICAL HISTORY 1982 uterus reconstruction REPLACEMENT TOTAL JOINT KNEE Right 09/02/[address] MD at [facility] TONSILLECTOMY Allergies Allergen Reactions Avelox [Moxifloxacin] [...] during discussion, demonstrated appropriate cognitive reasoning and understandingof the medical condition by asking appropriate questions [...] spine and paraspinal musculature. Pain is elicited withflexion, extension, and lateral rotation of the lumbar [...] Assessment/Treatment Plan: Cristofer was seen today for hip pain and [...] procedure was described in detail to the patientas well as the potential benefits of pain [...] monitoring for toxicity We do not currently prescribeany controlled substance from this practice. It is noted that the patient did have good response from the previously performed procedure. It is felt that the patient would benefit from an additional procedure of the same nature in that the samesymptoms have returned. It is hopeful that this [...] would also help these symptoms. The patient isoptimistic about the treatment plan we have laid [...] for further evaluation. OARRS: Reviewed. Scribe Statement: IEstefany CNA, scribed for and in the presence of NILDA TURNER who performed the above service. Estefany Hoffman CNA 08/29/24 1122 NILDA Turner 09/03/24 0855 documented in this encounterNorth Country HospitalBindHQ03-20-2025 Instructions* Patient Instructions* Estefany Hoffman CNA - 08/29/2024 10:45 AM [...] take you to the nearest emergency room. Tellthe emergency room staff that you recently had a spine injection. A doctor must evaluate you for bleeding and injection complications. If you lose control over bowel, bladder, or legs: Go to the nearest emergency room. documented in this encounterRegency Hospital Cleveland EastAbCelex Technologies Formerly Oak[facility] Southshore [id number] Miscellaneous Notes* Telephone Encounter - Grazyna Carter RN - 07/25/2024 12:01 PM EST Last OV: 07/09/2024 Next OV: 08/29/2024 OARRS appropriate: yes Last UDS: n/a [facility] documented in this encounterDunlap Memorial Hospital02-13-2025 Telephone encounter Note* Telephone Encounter - Grazyna Carter RN - 07/25/2024 12:01 PM EST Last OV: 07/09/2024 Next OV: 08/29/2024 OARRS appropriate: yes Last UDS: n/a [facility]01-[facility] History of Present illness Narrative* NILDA Turner - 07/09/2024 12:45 PM EST [facility] [address] [place] [address] Patient: Cristofer Heath Sex: female : 1960 Age: 64 y.o. PCP: SHAIKH JOVANI MD 07/09/2024 Cristofer El Anusha is here for a(n) post procedure follow up left hip injection with with 100% relieffor 2 weeks . Date of onset of pain: 2019 , pain has lasted greater than 3 months. Pain scale before treatment: 8/10 Pre-op pain score: 8/10 Post-op pain score: 2/10 2 hour post-op pain score: 0/10 4 hour post-op pain score: 0/10 Percentage and duration of relief after treatment: 100% relief for two weeks Pain scale after treatment: 5/ Chief Complaint Patient presents with Back Pain [...] x 2 days, then 70% continued relief. Patient'spre op pain 6-03/21 to 06/2106/21/24 left hip [...] groin. The pain is at a severity of1/10 (can get up to 9/10 depedning on activity). The pain is moderate (to severe). The pain is The s nona all the time. The symptoms are aggravated [...] 04/03/2018 Performed by Chepe Bustamante MD at [facility] SURGERY CYSTOSCOPY W/ URETERAL STENT PLACEMENT 2014 x 2 DILATION AND CURETTAGE OF UTERUS 1981, 1983 HYSTERECTOMY 1996 total INJECTION BLOCK EPIDURAL CAUDAL STEROID N/A 03/22/2024 Performed by Roly Dickens MD at [facility] INJECTION BLOCK EPIDURAL CAUDAL STEROID N/A 10/21/2022 Performed by Royl Dickens MD at [facility] INJECTION BLOCK EPIDURAL CAUDAL STEROID N/A 09/23/2022 Performed by Roly Dickens MD at [facility] INJECTION BLOCK SACROILIAC JOINT Left 04/26/2024 Performed by Roly Dickens MD at [facility] INJECTION BLOCK SACROILIAC JOINT Bilateral 02/09/2024 Performed by Roly Dickens MD at [facility] INJECTION BLOCK SACROILIAC JOINT Bilateral 09/15/2023 Performed by Roly Dickens MD at [facility] INJECTION BLOCK SACROILIAC JOINT Bilateral 2023 Performed by Roly Dickens MD at [facility] INJECTION BLOCK SACROILIAC JOINT Bilateral 12/23/2022 Performed by Roly Dickens MD at [facility] INJECTION BURSA LARGE JOINT: left hip Left 06/21/2024 Performed by Roly Dickens MD at [facility] OOPHORECTOMY OTHER SURGICAL HISTORY 1982 uterus reconstruction REPLACEMENT TOTAL JOINT KNEE Right 09/02/[address]vester MD at [facility] TONSILLECTOMY Allergies Allergen Reactions Avelox [Moxifloxacin] [...] during discussion, demonstrated appropriate cognitive reasoning and understandingof the medical condition by asking appropriate questions [...] spine and paraspinal musculature. Pain is elicited withflexion, extension, and lateral rotation of the lumbar [...] Plan: Cristofer was seen today for back pain and [...] is necessary to further evaluate the patients currentpain pathology. For this reason, we will order [...] Side effects, and possible interactions of these medicationswere reviewed and the medication agreement has been discussed, agreed upon, and signed. The patientunderstands compliance concerns and the requirement of pill [...] monitoring for toxicity We do not currently prescribeany controlled substance from this practice. Treatment plans [...] decision making: Obesity OARRS: Reviewed. Scribe Statement: IEstefany CNA, scribed for and in the presence of NILDA TURNER who performed the above service. Provider Statement: IYADIEL PA, personally performed the services described in the documentation, as scribed by Estefany Hoffman CNA in my presence, and it is both accurate and complete. Estefany Hoffman CNA 07/09/24 1329 NILDA Turner 07/09/24 1347 documented in this encounterNorth Country HospitalBindHQ12-12-2024 History of Present illness Narrative* NILDA Turner - 05/23/2024 9:45 AM EST [facility] [address] [place] [address] Patient: Cristofer Heath Sex: female : 1960 [...] x 2 days, then 70% continued relief. Patient'spre op pain 6-10/10 to 1/10 Back Pain This is a chronic problem. The current episode started more than 1 year ago (@ 2020). The problem occurs constantly. The problem is unchanged. Pain location: left groin. The quality of the pain is described as aching. Radiates to: left groin. The pain is at a severity of 8/10 (left groin). The painis moderate (to severe). The pain is The [...] 04/03/2018 Performed by Chepe Bustamante MD at [facility] SURGERY CYSTOSCOPY W/ URETERAL STENT PLACEMENT 2013 x 2 DILATION AND CURETTAGE OF UTERUS 1981, 1983 HYSTERECTOMY 1996 total INJECTION BLOCK EPIDURAL CAUDAL STEROID N/A 03/22/2024 Performed by Roly Dickens MD at [facility] INJECTION BLOCK EPIDURAL CAUDAL STEROID N/A 10/21/2022 Performed by Roly Dickens MD at [facility] INJECTION BLOCK EPIDURAL CAUDAL STEROID N/A 09/23/2022 Performed by Roly Dickens MD at [facility] INJECTION BLOCK SACROILIAC JOINT Left 04/26/2024 Performed by Roly Dickens MD at [facility] INJECTION BLOCK SACROILIAC JOINT Bilateral 02/09/2024 Performed by Roly Dickens MD at [facility] INJECTION BLOCK SACROILIAC JOINT Bilateral 09/15/2023 Performed by Roly Dickens MD at [facility] INJECTION BLOCK SACROILIAC JOINT Bilateral 2023 Performed by Roly Dickens MD at [facility] INJECTION BLOCK SACROILIAC JOINT Bilateral 12/23/2022 Performed by Roly Dickens MD at [facility] OOPHORECTOMY OTHER SURGICAL HISTORY 1982 uterus reconstruction REPLACEMENT TOTAL JOINT KNEE Right 09/02/[address] MD at [facility] TONSILLECTOMY Allergies Allergen Reactions Avelox [Moxifloxacin] [...] during discussion, demonstrated appropriate cognitive reasoning and understandingof the medical condition by asking appropriate questions [...] procedure was described in detail to the patientas well as the potential benefits of pain [...] to be utilized alongside or following the injections.We may also need to consider surgical options if injections fail to provide relief for a reasonableduration. Follow up 2 weeks after procedure The medications prescribed have been reviewed for medication interactions/contraindications and/or for upcoming procedures: continue current medication regimen without any changes. DISCUSSION: Treatment options discussed with patient and all questions answered to patient's satisfaction. Prescribed medication that requires intensive monitoring for toxicity We do not currently prescribeany controlled substance from this practice. It appears [...] would also help these symptoms. The patient isoptimistic about the treatment plan we have laid [...] NILDA Turner 05/23/24 1153 documented in this encounterNorth Country HospitalBindHQ12-12-2024 Instructions* Patient Instructions* Estefany Hoffman CNA - 05/23/2024 9:45 AM [...] take you to the nearest emergency room. Tellthe emergency room staff that you recently had [...] it back to normal. documented in this encounterDunlap Memorial Hospital12-12-2024 Telephone encounter Note* Telephone Encounter - Diana Becker MA - 05/23/2024 8:39 AM EST day supply please. 05/16/2024 08/19/2024 [facility] [id number] Miscellaneous Notes* Telephone Encounter - Diana Becker MA - 05/23/2024 8:39 AM EST 90 day supply please. 05/16/2024 08/19/2024 documented in this encounterCedar County Memorial HospitalVivatnpcqq31-51-1919 History of Present illness Narrative* Sindhu Tong NP - 05/16/2024 9:41 AM ESTAssociated Problem(s): URTI (acute upper respiratory infection) Presents today complaining of URI symptoms ongoing for 2 weeks Admits: Productive cough-yellow phlegm Runny nose Ear ache Sore throat Headache Has tried several OTC treatments with no relief. Will order Azithromycin, prednisone and johannasalon pearbrice today. * Sindhu Tong NP - 05/16/2024 9:30 AM EST Images from the original note were not [...] of breath Chest pain N/V/D TX: Mucinex [place] Tessalon Pearles Flonase No relief Review of [...] disorder with single episode, in full remission (CMS/[facility]) Relevant Medications traZODone (Desyrel) 50 MG tablet Other Visit Diagnoses Upper respiratory tract infection, unspecified type - Primary Relevant Medications azithromycin (Zithromax) 500 MG tablet benzonatate (Tessalon Perles) 100 MG capsule predniSONE (Deltasone) 20 MG tablet documented in this encounterCedar County Memorial HospitalTroifhjoyf68-70-1054 Instructions* Patient Instructions* Sindhu Tong NP - 05/16/2024 9:30 AM [...] nasal spray 1-2 squirts in each nostril atnight. Tylenol for fever and body aches. Mucinex for cough/congestion 600-1,200mg twice daily. Vitamins: Vitamin C 1,000mg per day. Vitamin D3 2,000 international unit(s) per day.Zinc 25mg per day. WORSENING SYMPTOMS, CHEST PAIN, OR SHORTNESS OF BREATH, GO TO THE NEAREST EMERGENCY DEPARTMENT. documented in this [facility]11-21-2024 Telephone encounter Note* Telephone Encounter - Diana Becker MA - 05/02/2024 8:57 AM EST 90 day supply please RENAE:02/22/2024 NOV:05/16/2024 [facility] [id number] Miscellaneous Notes* Telephone Encounter - Diana Becker MA - 05/02/2024 8:57 AM EST 90 day supply please RENAE:02/22/2024 NOV:05/16/2024 documented in this [facility]11-15-2024 Miscellaneous Notes* Telephone Encounter - Linda Calderon RN - 04/26/2024 10:27 AM EST Last Office Visit: 04/09/2024 Next Office Visit: 05/23/2024 Last Urine Drug Screen: No results found for: BENZOSCRN OARRS appropriate documented in this encounterDunlap Memorial Hospital11-15-2024 Telephone encounter Note* Telephone Encounter - Linda Calderon RN - 04/26/2024 10:27 AM EST Last Office Visit: 04/09/2024 Next Office Visit: 05/23/2024 Last Urine Drug Screen: No results found for: BENZOSCRN OARRS appropriate [facility]10-29-20[facility] Telephone encounter Note* Telephone Encounter - Diana Becker MA - 04/09/2024 3:36 PM EDT Pt requesting refills on her Lipitor and her Trazodone. RENAE:02/22/2024 NOV:04/24/2024 [facility] [id number] Miscellaneous Notes* Telephone Encounter - Diana Becker MA - 04/09/2024 3:36 PM EDT Pt requesting refills on her Lipitor and her Trazodone. RENAE:02/22/2024 NOV:04/24/2024 documented in this encounterCedar County Memorial [id number] History of Present illness Narrative* NILDA Turner - 04/09/2024 9:45 AM EDT [facility] [address] [place] [address] Patient: Cristofer Heath Sex: female : 1960 [...] The pain is at a severity of 6/10(can be 10/10 with increased activity). The pain is mild (to severe). The pain is The same all the time. The symptoms are aggravated by standing, bending and twisting (walking). Stiffness is present:na. Pertinent negatives include no bladder incontinence, bowel incontinence, chest pain, fever, legpain, numbness, tingling or weakness. Risk factors include [...] 04/03/2018 Performed by Chepe Bustamante MD at [facility] SURGERY CYSTOSCOPY W/ URETERAL STENT PLACEMENT 2014 x 2 DILATION AND CURETTAGE OF UTERUS 1981, 1983 HYSTERECTOMY 1997 total INJECTION BLOCK EPIDURAL CAUDAL STEROID N/A 03/22/2024 Performed by Roly Dickens MD at [facility] INJECTION BLOCK EPIDURAL CAUDAL STEROID N/A 10/21/2022 Performed by Roly Dickens MD at [facility] INJECTION BLOCK EPIDURAL CAUDAL STEROID N/A 09/23/2022 Performed by Roly Dickens MD at [facility] INJECTION BLOCK SACROILIAC JOINT Bilateral 02/09/2024 Performed by Roly Dickens MD at [facility] INJECTION BLOCK SACROILIAC JOINT Bilateral 09/15/2023 Performed by Roly Dickens MD at [facility] INJECTION BLOCK SACROILIAC JOINT Bilateral 2023 Performed by Roly Dickens MD at [facility] INJECTION BLOCK SACROILIAC JOINT Bilateral 12/23/2022 Performed by Roly Dickens MD at [facility] OOPHORECTOMY OTHER SURGICAL HISTORY 1982 uterus reconstruction REPLACEMENT TOTAL JOINT KNEE Right 09/02/[address] MD at [facility] TONSILLECTOMY Allergies Allergen Reactions Avelox [Moxifloxacin] [...] during discussion, demonstrated appropriate cognitive reasoning and understandingof the medical condition by asking appropriate questions [...] procedure was described in detail to the patientas well as the potential benefits of pain [...] monitoring for toxicity We do not currently prescribeany controlled substance from this practice. It appears [...] NILDA Turner 04/09/24 1201 documented in this encounterNorth Country HospitalBindHQ10-29-2024 Instructions* Patient Instructions* Estefany Hoffman CNA - 04/09/2024 9:45 AM [...] take you to the nearest emergency room. Tellthe emergency room staff that you recently had a spine injection. A doctor must evaluate you for bleeding and injection complications. If you lose control over bowel, bladder, or legs: Go to the nearest emergency room. documented in this encounterDunlap Memorial Hospital09-19-2024 History of Present illness Narrative* NILDA Turner - 02/29/2024 8:30 AM EDT [facility] [address] [place] [address] Patient: Cristofer Heath Sex: female : 1960 Age: 63 y.o. PCP: SHAIKH JOVANI MD 02/29/2024 Cristofer Heath is here for a(n) post procedure follow up 02/09/2024 bilateral sacroiliac injectionwith 75-80% relief x 1 day. Patient's pain [...] x 1 day Pain scale after treatment: 08/19 Chief Complaint Patient presents with Back Pain [...] The symptoms are aggravated by standing, bending andtwisting (walking). Stiffness is present In the morning. [...] 04/03/2018 Performed by Chepe Bustamante MD at [facility] SURGERY CYSTOSCOPY W/ URETERAL STENT PLACEMENT 2014 x 2 DILATION AND CURETTAGE OF UTERUS 1981, 1983 HYSTERECTOMY 1996 total INJECTION BLOCK EPIDURAL CAUDAL STEROID N/A 10/21/2022 Performed by Roly Dickens MD at [facility] INJECTION BLOCK EPIDURAL CAUDAL STEROID N/A 09/23/2022 Performed by Roly Dickens MD at [facility] INJECTION BLOCK SACROILIAC JOINT Bilateral 02/09/2024 Performed by Roly Dickens MD at [facility] INJECTION BLOCK SACROILIAC JOINT Bilateral 09/15/2023 Performed by Roly Dickens MD at [facility] INJECTION BLOCK SACROILIAC JOINT Bilateral 2023 Performed by Roly Dickens MD at [facility] INJECTION BLOCK SACROILIAC JOINT Bilateral 12/23/2022 Performed by Roly Dickens MD at [facility] OOPHORECTOMY OTHER SURGICAL HISTORY 1982 uterus reconstruction REPLACEMENT TOTAL JOINT KNEE Right 09/02/[address]vester MD at [facility] TONSILLECTOMY Allergies Allergen Reactions Avelox [Moxifloxacin] [...] during discussion, demonstrated appropriate cognitive reasoning and understandingof the medical condition by asking appropriate questions [...] spine and paraspinal musculature. Pain is elicited withflexion, extension, and lateral rotation of the lumbar [...] is negative. Gait is normal. Assessment/Treatment Plan: Cristofer was [...] Side effects, and possible interactions of these medicationswere reviewed and the medication agreement has been discussed, agreed upon, and signed. The patientunderstands compliance concerns and the requirement of pill [...] procedure was described in detail to the patientas well as the potential benefits of pain [...] the injection, additional modalities of therapy including med ications and physical therapy may need to be [...] the type of medication prescribed along with directionsfor use. Potential side effects have been discussed, along with risks and benefits of taking this medication. (S)he was instructed as to what to do if (s)he experiences side effects, including when to discontinue the medication. (S)he was advised to call this office in this event. Also discussed atlength safety and security of RX and medications. Prescribed medication that requires intensive monitoring for toxicity We do not currently prescribeany controlled substance from this practice. It appears [...] NILDA Turner 02/29/24 1051 documented in this encounterRegency Hospital Cleveland EastAbCelex Technologies Formerly Oakwood Southshore [id number] Instructions* Patient Instructions* Estefany Hoffman CNA - 02/29/2024 8:30 AM EDT Epidural Steroid Injection (MI) / Nerve Root Injection / Nerve Block These procedure(s) involve the injection of a steroid and anesthetic into the epidural space or thenerve sheath that is both diagnostic and potentially therapeutic for alleviating discomfort of the legs and arms secondary to compression of the respective nerves due to bulging discs, bone spurs andother potential causes. Steroids are potent anti-inflammatory drugs [...] a safety precaution, you must have a spotter driver after a lumbar nerve root injection, [...] take you to the nearest emergency room. Tellthe emergency room staff that you recently had [...] it back to normal. documented in this encounterRegency Hospital Cleveland EastAbCelex Technologies Formerly [facility] Southshore [id number] History of Present illness Narrative* Sindhu Tong NP - 02/23/2024 1:44 PM EDTAssociated Problem(s): Hypersomnia with sleep apnea Does wear CPAP- has not had a sleep study or equipment change in several years 15-20 years. Reports headaches and frequent yawning. Will refer for sleep study and CPAP management. * Sindhu Tong NP - 02/22/2024 10:30 AM EDT Images from the original note [...] concentration and suicidal ideas. The patient is notnervous/anxious. Hematological: Does not bruise/bleed easily. Endocrine: Negative [...] Ambulatory referral to Pulmonology documented in this encounterCedar County Memorial [id number] Instructions* Patient Instructions* Sindhu Tong NP - 02/22/2024 10:30 AM EDT Referral sent to Pulmonology- They will call you! Do not restart adipex. If you develop shortness of breath at rest or with movement, chest pain, swelling in hands, legs, feet GO TO ER IMMEDIATELY!!! documented in this encounterCedar County Memorial [id number] History of Present illness Narrative* Zeina Garcia APRN-REFERENCE AND INSTRUCTION LIBRARIAN - 01/30/2024 1:15 PM EDT [facility] [address] [place] [address] Patient: Cristofer Heath Sex: female : 1960 Age: 63 y.o. PCP: SHAIKH JOVANI MD 01/30/2024 Cristofer [place] is here for a(n) follow up. Currently rating pain 10/10. Patient states pain is localized in low back and occasionally feels pain wrap around the front to stomach. Patient notes low back weakness. [facility]'s insurance changed recently; had to move bilateral [...] varies. The symptoms are aggravated by standing, bendingand twisting (walking). Stiffness is present In the morning. Associated symptoms include weakness (low back). Pertinent negatives include no bladder incontinence, bowel incontinence, chest pain, fever , leg pain, numbness or tingling. Risk factors [...] 04/03/2018 Performed by Chepe Bustamante MD at [facility] SURGERY CYSTOSCOPY W/ URETERAL STENT PLACEMENT 2014 x 2 DILATION AND CURETTAGE OF UTERUS 1981, 1984 HYSTERECTOMY 1997 total INJECTION BLOCK EPIDURAL CAUDAL STEROID N/A 10/21/2022 Performed by Roly Dickens MD at [facility] INJECTION BLOCK EPIDURAL CAUDAL STEROID N/A 09/23/2022 Performed by Roly Dickens MD at [facility] INJECTION BLOCK SACROILIAC JOINT Bilateral 09/15/2023 Performed by Roly Dickens MD at [facility] INJECTION BLOCK SACROILIAC JOINT Bilateral 2023 Performed by Roly Dickens MD at [facility] INJECTION BLOCK SACROILIAC JOINT Bilateral 12/23/2022 Performed by Roly Dickens MD at [facility] OOPHORECTOMY OTHER SURGICAL HISTORY 1982 uterus reconstruction REPLACEMENT TOTAL JOINT KNEE Right 09/02/[address]vester MD at [facility] TONSILLECTOMY Allergies Allergen Reactions Avelox [Moxifloxacin] [...] during discussion, demonstrated appropriate cognitive reasoning and understandingof the medical condition by asking appropriate questions regarding the diagnosis and risks/benefits/alternatives of treatment modalities. No obvious deficits in memory, reasoning, or intellect. Tenderness to palpation is noted over the Bilateral SacroIliac Joint: Fabere sign (Julián's Test) is significantly positive, as is compression and distraction of the sacroiliac joints, which is consistent with some of the patient's normal pain. Assessment/Treatment Plan: Cristofer was seen today for [...] Scribed for and in the presence of KADEN ANDERSEN CNP by Linda Calderon RN. Provider Statement: I, ELAINE ANDERSEN, personally performed the services described in the documentation, as scribed by Linda Calderon RN in my presence, and it is both accurate and complete. Linda Calderon RN 01/30/24 1423 ELAINE Andersen 01/30/24 1627 documented in this encounterDunlap Memorial Hospital08-20-2024 Miscellaneous Notes* Telephone Encounter - Mavis Bella - 01/30/2024 9:42 AM EDT Pt calls today stating her pain is a constant 10/10. She states that her last procedure scheduled 01/11 was cancelled and r/s for 02/15. Pt has tried heat with massage gun, with 0 help Takes about 12 tylenol daily= 0 help 0 sleep at night Would like tramadol or something to help get through the next few weeks * Telephone Encounter - ELAINE Andersen - 01/30/2024 9:42 AM EDT Patient was added to my schedule today 01/30/24 to discuss other options. Thank you! documented in this encounterDunlap Memorial Hospital08-20-2024 Telephone encounter Note* Telephone Encounter - Mavis Bella - 01/30/2024 9:42 AM EDT Pt calls today stating her pain is a constant 03/21. She states that her last procedure scheduled 01/11 was cancelled and r/s for 02/15. Pt has tried heat with massage gun, with 0 help Takes about 12 tylenol daily= 0 help 0 sleep at night Would like tramadol or something to help get through the next few weeks [facility] CenterNextGen Platform Formerly Oakwood Southshore [id number] Telephone encounter Note* Telephone Encounter - ELAINE Andersen - 01/30/2024 9:42 AM EDT Patient was added to my schedule today 01/30/24 to discuss other options. Thank you! [facility] Work Phone: [phone] History of Present illness Narrative* NILDA Turner - 12/28/2023 2:30 PM EDT [facility] [address] [place] [address] Patient: Cristofer Heath Sex: female : 1960 Age: 63 y.o. PCP: SHAIKH JOVANI MD 12/28/2023 Cristofer Heath is here for an early 3 month [...] (up to 9/10). The pain is moderate. Worseduring: varies. The symptoms are aggravated by standing, [...] 04/03/2018 Performed by Chepe Bustamante MD at [facility] SURGERY CYSTOSCOPY W/ URETERAL STENT PLACEMENT 2013 x 2 DILATION AND CURETTAGE OF UTERUS 1981, 1983 HYSTERECTOMY 1996 total INJECTION BLOCK EPIDURAL CAUDAL STEROID N/A 10/21/2022 Performed by Roly Dickens MD at [facility] INJECTION BLOCK EPIDURAL CAUDAL STEROID N/A 09/23/2022 Performed by Roly Dickens MD at [facility] INJECTION BLOCK SACROILIAC JOINT Bilateral 09/15/2023 Performed by Roly Dickens MD at [facility] INJECTION BLOCK SACROILIAC JOINT Bilateral 2023 Performed by Roly Dickens MD at [facility] INJECTION BLOCK SACROILIAC JOINT Bilateral 12/23/2022 Performed by Roly Dickens MD at [facility] OOPHORECTOMY OTHER SURGICAL HISTORY 1982 uterus reconstruction REPLACEMENT TOTAL JOINT KNEE Right 09/02/[address]vester MD at [facility] TONSILLECTOMY Allergies Allergen Reactions Avelox [Moxifloxacin] [...] during discussion, demonstrated appropriate cognitive reasoning and understandingof the medical condition by asking appropriate questions [...] procedure was described in detail to the patientas well as the potential benefits of pain [...] monitoring for toxicity We do not currently prescribeany controlled substance from this practice. It is noted that the patient did have good response from the previously performed procedure. It is felt that the patient would benefit from an additional procedure of the same nature in that the samesymptoms have returned. It is hopeful that this [...] NILDA Turner 01/02/24 0858 documented in this encounterNorth Country HospitalBindHQ07-18-2024 Instructions* Patient Instructions* Estefany Hoffman CNA - 12/28/2023 2:30 PM [...] take you to the nearest emergency room. Tellthe emergency room staff that you recently had a spine injection. A doctor must evaluate you for bleeding and injection complications. If you lose control over bowel, bladder, or legs: Go to the nearest emergency room. documented in this encounterRegency Hospital Cleveland EastAbCelex Technologies Formerly Oakwood Southshore [id number] History of Present illness Narrative* NILDA Turner - 10/03/2023 9:45 AM EDT [facility] [address] [place] [address] Patient: Cristofer Heath Sex: female : 1960 Age: 63 y.o. PCP: SHAIKH JOVANI MD 10/03/2023 Cristofer Heath is here for a(n) post procedure follow up bilateral SI joint injection on 09/15/2023with at least 90% relief Date of onset [...] ago (@ 2019). The problem occurs constantly (much better since 09/15/2023 procedure). The problem has been gradually improving since onset. The pain is present in the lumbar spine. The pain does not radiate. The pain is at a severity of 0/10. The patient is experiencing no pain. Worse during: varies. The symptoms are aggravatedby standing. Stiffness is present: na. Associated symptoms include numbness (intermittently to right foot- SELDOM; much improved since 09/15/2023 procedure). Pertinent negatives include no bladder incontinence, bowel incontinence, chest pain, fever, leg pain, tingling or weakness. Risk factors include poor posture, obesity and lack of exercise. Treatments tried: PT/HEP 07/2022, rest, ice/heat, meds:NSAIDs (mobic, celebrex), tylenol, baclofen, volteran with little [...] 04/03/2018 Performed by Chepe Bustamante MD at [facility] CYSTOSCOPY W/ URETERAL STENT PLACEMENT 2014 x 2 DILATION AND CURETTAGE OF UTERUS 1981, 1983 HYSTERECTOMY 1996 total INJECTION BLOCK EPIDURAL CAUDAL STEROID N/A 10/21/2022 Performed by Roly Dickens MD at [facility] INJECTION BLOCK EPIDURAL CAUDAL STEROID N/A 09/23/2022 Performed by Roly Dickens MD at [facility] INJECTION BLOCK SACROILIAC JOINT Bilateral 09/15/2023 Performed by Roly Dickens MD at [facility] INJECTION BLOCK SACROILIAC JOINT Bilateral 2023 Performed by Roly Dickens MD at [facility] INJECTION BLOCK SACROILIAC JOINT Bilateral 12/23/2022 Performed by Roly Dickens MD at [facility] OOPHORECTOMY OTHER SURGICAL HISTORY 1982 uterus reconstruction REPLACEMENT TOTAL JOINT KNEE Right 09/02/[address] MD at [facility] TONSILLECTOMY Allergies Allergen Reactions Avelox [Moxifloxacin] [...] during discussion, demonstrated appropriate cognitive reasoning and understandingof the medical condition by asking appropriate questions [...] negative bilaterally. Gait is normal. Assessment/Treatment Plan: Cristofer was [...] monitoring for toxicity We do not currently prescribeany controlled substance from this practice. Treatment plans discussed but not opted for at this time: Repeat SI joint injectionc. Pain is under adequate control. It does appear that the patient benefited from the previous injection and the benefit has continuedthrough this visit. At this time, we will monitor the patient s symptoms from an interventional standpoint and consider another injection in the future if the patient s symptoms return or intensify severely. The patient was made aware that they should call if symptoms worsen or if their pain beginsto have a negative impact on their quality [...] Hoffman CNA 10/03/23 1059 NILDA Turner 10/03/23 1138 documented in this encounterDunlap Memorial Hospital03-14-2024 History of Present illness Narrative* NILDA Turner - 08/24/2023 9:15 AM EDT [facility] [address] [place] [address] Patient: Cristofer Heath Sex: female : 1960 [...] 04/03/2018 Performed by Chepe Bustamante MD at [facility] SURGERY CYSTOSCOPY W/ URETERAL STENT PLACEMENT 2013 x 2 DILATION AND CURETTAGE OF UTERUS 1981, 1983 HYSTERECTOMY 1996 total INJECTION BLOCK EPIDURAL CAUDAL STEROID N/A 10/21/2022 Performed by Roly Dickens MD at [facility] INJECTION BLOCK EPIDURAL CAUDAL STEROID N/A 09/23/2022 Performed by Roly Dickens MD at [facility] INJECTION BLOCK SACROILIAC JOINT Bilateral 2023 Performed by Roly Dickens MD at [facility] INJECTION BLOCK SACROILIAC JOINT Bilateral 12/23/2022 Performed by Roly Dickens MD at [facility] OOPHORECTOMY OTHER SURGICAL HISTORY 1982 uterus reconstruction REPLACEMENT TOTAL JOINT KNEE Right 09/02/[address] MD at [facility] TONSILLECTOMY Allergies Allergen Reactions Avelox [Moxifloxacin] [...] during discussion, demonstrated appropriate cognitive reasoning and understandingof the medical condition by asking appropriate questions [...] procedure was described in detail to the patientas well as the potential benefits of pain [...] monitoring for toxicity We do not currently prescribeany controlled substance from this practice. It is noted that the patient did have good response from the previously performed procedure. It is felt that the patient would benefit from an additional procedure of the same nature in that the samesymptoms have returned. It is hopeful that this [...] NILDA Turner 08/24/23 1208 documented in this encounterNorth Country HospitalGamaMabs Pharma [id number] Instructions* Patient Instructions* Estefany Hoffman CNA - 08/24/2023 9:15 AM [...] take you to the nearest emergency room. Tellthe emergency room staff that you recently had a spine injection. A doctor must evaluate you for bleeding and injection complications. If you lose control over bowel, bladder, or legs: Go to the nearest emergency room. documented in this encounterRegency Hospital Cleveland EastUWI Technology [id number] History of Present illness Narrative* Shaikh Jovani MD - 07/17/2023 9:47 AM ESTAssociated Problem(s): Tobacco abuse Patient trying to quit [...] minutes were spent on Smoking/Tobacco use counseling. * Shaikh Jovani MD - 07/17/2023 9:46 AM ESTAssociated Problem(s): Major depressive disorder with single episode, in full remission ([facility]) Well controlled. Last appointment, she was weaned off of Prozac and her dose was decreased to 10 mgdaily. Doing well on it. * Shaikh Jovani MD - 07/17/2023 9:44 AM ESTAssociated Problem(s): HLD (hyperlipidemia) (CMS/[facility]) On Lipitor. C/w same. * Shaikh Jovani MD - 07/17/2023 9:44 AM ESTAssociated Problem(s): URTI (acute upper respiratory infection) She reports feeling tired for past few days. For a couple of days, she also felt lightheaded and dizzy. Her BP was at goal and her blood glucose were normal Patient's exam indicated bilateral suppurative otitis media along with pharyngitis. Will call in oral Azithromycin for her. * Shaikh Jovani MD - 07/17/2023 9:43 AM ESTAssociated Problem(s): Primary hypertension (CMS/HCC) Asymptomatic. Denies CP, SOB, palpitations. Monitoring w/o medications. Denies lightheadedness, dizziness, syncope, presyncope. Patient encouraged to continue with home BP monitoring and call office if she experiences orthostatic symptoms or persistently elevated BP. * Shaikh Jovani MD - 07/17/2023 9:42 AM ESTAssociated Problem(s): Sleep apnea H/o IRIS, being treated with CPAP. Patient has not had a Sleep Study over 15 years ago. Refer to Sleep Clinic. Asking for a referral to Dr. Hennessy. * Jennifer Fiore - 07/17/2023 9:15 AM EST Patient here for a follow up from smoking patient states she has slowed down but has not quit . States she has been feeling light headed and has checked her sugar and bp but was normal * Shaikh Jovani MD - 07/17/2023 9:15 AM EST Subjective Patient ID: Cristofer Heath is a [...] and her dose was decreased to 10 mgdaily. Doing well on it. Follow up in about 6 months (around 01/15/2024). [facility] Diagnosis Obstructive sleep apnea syndrome- Primary Obstructive sleep apnea (adult) (pediatric) Hyperlipidemia, unspecified hyperlipidemia type (CMS/HCC) Primary hypertension (CMS/HCC) Unspecified essential hypertension URTI (acute upper respiratory infection) Acute upper respiratory infections of unspecified site Major depressive disorder with single episode, in full remission ([facility]) Tobacco abuse Tobacco use disorder documented in this encounter [facility]* Diagnosis Obstructive sleep apnea syndrome- Primary Obstructive sleep apnea (adult) (pediatric) documented in this encounter [facility]* Diagnosis Primary osteoarthritis of [...] disorder with single episode, in full remission ([facility]) Tobacco abuse Tobacco use disorder Mixed hyperlipidemia (CMS/HCC)- Primary Mixed hyperlipidemia Major depressive disorder with single episode, in full remission ([facility]) BMI 35.0-35.9,adult Hypersomnia with sleep apnea- Primary Hypersomnia with sleep apnea, unspecified Obstructive sleep apnea syndrome Obstructive sleep apnea (adult) (pediatric) Primary hypertension ([facility]/HCC) Unspecified essential hypertension documented in this encounter [facility]* Diagnosis Obstructive sleep apnea syndrome- Primary Obstructive sleep apnea (adult) (pediatric) Hyperlipidemia, unspecified hyperlipidemia type (CMS/HCC) Primary hypertension (CMS/HCC) Unspecified essential hypertension URTI (acute upper respiratory infection) Acute upper respiratory infections of unspecified site Major depressive disorder with single episode, in full remission ([facility]) Tobacco abuse Tobacco use disorder Mixed hyperlipidemia (CMS/HCC)- Primary Mixed hyperlipidemia Major depressive disorder with single episode, in full remission ([facility]) BMI 35.0-35.9,adult Hypersomnia with sleep apnea- Primary Hypersomnia with sleep apnea, unspecified Obstructive sleep apnea syndrome Obstructive sleep apnea (adult) (pediatric) Major depressive disorder with single episode, in full remission ([facility]) documented in this encounter [facility]* Diagnosis Obstructive sleep apnea syndrome- Primary Obstructive sleep apnea (adult) (pediatric) Hyperlipidemia, unspecified hyperlipidemia type ([facility]) Primary hypertension ([facility]) Unspecified essential hypertension URTI (acute upper respiratory infection) Acute upper respiratory infections of unspecified site Major depressive disorder with single episode, in full remission ([facility]) Tobacco abuse Tobacco use disorder Mixed hyperlipidemia ([facility])- Primary Mixed hyperlipidemia Major depressive disorder with single episode, in full remission ([facility]) BMI 35.0-35.9,adult Hypersomnia with sleep apnea- Primary Hypersomnia with sleep apnea, unspecified Obstructive sleep apnea syndrome Obstructive sleep apnea (adult) (pediatric) Primary osteoarthritis of left hip Primary osteoarthritis of right knee Spinal stenosis of lumbar region with neurogenic claudication documented in this encounter [facility]* Diagnosis Obstructive sleep apnea syndrome- Primary Obstructive sleep apnea (adult) (pediatric) Hyperlipidemia, unspecified hyperlipidemia type ([facility]) Primary hypertension ([facility]) Unspecified essential hypertension URTI (acute upper respiratory infection) Acute upper respiratory infections of unspecified site Major depressive disorder with single episode, in full remission ([facility]) Tobacco abuse Tobacco use disorder Mixed hyperlipidemia ([facility])- Primary Mixed hyperlipidemia Major depressive disorder with single episode, in full remission ([facility]) BMI 35.0-35.9,adult Hypersomnia with sleep apnea- Primary Hypersomnia with sleep apnea, unspecified Obstructive sleep apnea syndrome Obstructive sleep apnea (adult) (pediatric) Primary hypertension ([facility]) Unspecified essential hypertension documented in this encounter [facility]* Diagnosis Obstructive sleep apnea syndrome- Primary Obstructive sleep apnea (adult) (pediatric) Hyperlipidemia, unspecified hyperlipidemia type ([facility]) Primary hypertension ([facility]) Unspecified essential hypertension URTI (acute upper respiratory infection) Acute upper respiratory infections of unspecified site Major depressive disorder with single episode, in full remission ([facility]) Tobacco abuse Tobacco use disorder Mixed hyperlipidemia ([facility])- Primary Mixed hyperlipidemia Major depressive disorder with single episode, in full remission ([facility]) BMI 35.0-35.9,adult Hypersomnia with sleep apnea- Primary Hypersomnia with sleep apnea, unspecified Obstructive sleep apnea syndrome Obstructive sleep apnea (adult) (pediatric) Upper respiratory tract infection, unspecified type- Primary Major depressive disorder with single episode, in full remission ([facility]) URTI (acute upper respiratory infection) Acute upper respiratory infections of unspecified site documented in this encounter [facility]* Diagnosis Hypersomnia with sleep apnea- Primary Hypersomnia with sleep apnea, unspecified Obstructive sleep apnea syndrome Obstructive sleep apnea (adult) (pediatric) documented in this encounter [facility]* Diagnosis Obstructive sleep apnea syndrome- Primary Obstructive sleep apnea (adult) (pediatric) Hyperlipidemia, unspecified hyperlipidemia type ([facility]/HCC) Primary hypertension ([facility]) Unspecified essential hypertension URTI (acute upper respiratory infection) Acute upper respiratory infections of unspecified site Major depressive disorder with single episode, in full remission ([facility]) Tobacco abuse Tobacco use disorder Mixed hyperlipidemia ([facility])- Primary Mixed hyperlipidemia Major depressive disorder with single episode, in full remission ([facility]) BMI 35.0-35.9,adult Hypersomnia with sleep apnea- Primary Hypersomnia with sleep apnea, unspecified Obstructive sleep apnea syndrome Obstructive sleep apnea (adult) (pediatric) Upper respiratory tract infection, unspecified type- Primary Major depressive disorder with single episode, in full remission ([facility]) URTI (acute upper respiratory infection) Acute upper respiratory infections of unspecified site Tobacco abuse Tobacco use disorder documented in this encounter [facility]* Diagnosis Obstructive sleep apnea syndrome- Primary Obstructive sleep apnea (adult) (pediatric) Hyperlipidemia, unspecified hyperlipidemia type ([facility]) Primary hypertension ([facility]) Unspecified essential hypertension URTI (acute upper respiratory infection) Acute upper respiratory infections of unspecified site Major depressive disorder with single episode, in full remission ([facility]) Tobacco abuse Tobacco use disorder Mixed hyperlipidemia ([facility])- Primary Mixed hyperlipidemia Major depressive disorder with single episode, in full remission ([facility]) BMI 35.0-35.9,adult Hypersomnia with sleep apnea- Primary Hypersomnia with sleep apnea, unspecified Obstructive sleep apnea syndrome Obstructive sleep apnea (adult) (pediatric) Upper respiratory tract infection, unspecified type- Primary Major depressive disorder with single episode, in full remission ([facility]) URTI (acute upper respiratory infection) Acute upper respiratory infections of unspecified site Tobacco abuse Tobacco use disorder Major depressive disorder with single episode, in full remission ([facility]) documented in this encounter [facility]* Diagnosis Osteopenia, unspecified location documented in this encounter [facility]* Diagnosis Tobacco abuse Tobacco use disorder documented in this encounter [facility]* Diagnosis Primary hypertension ([facility]/HCC)- Primary Unspecified essential hypertension documented in this encounter [facility]* Diagnosis Primary hypertension ([facility])- Primary Unspecified essential hypertension documented in this encounter [facility]* Diagnosis Obstructive sleep apnea syndrome- Primary Obstructive sleep apnea (adult) (pediatric) Hyperlipidemia, unspecified hyperlipidemia type ([facility]/HCC) Primary hypertension ([facility]) Unspecified essential hypertension URTI (acute upper respiratory infection) Acute upper respiratory infections of unspecified site Major depressive disorder with single episode, in full remission ([facility]) Tobacco abuse Tobacco use disorder Mixed hyperlipidemia ([facility])- Primary Mixed hyperlipidemia Major depressive disorder with single episode, in full remission ([facility]) BMI 35.0-35.9,adult Hypersomnia with sleep apnea- Primary Hypersomnia with sleep apnea, unspecified Obstructive sleep apnea syndrome Obstructive sleep apnea (adult) (pediatric) Upper respiratory tract infection, unspecified type- Primary Major depressive disorder with single episode, in full remission ([facility]) URTI (acute upper respiratory infection) Acute upper respiratory infections of unspecified site Major depressive disorder with single episode, in full remission ([facility]) documented in this encounter [facility]* Diagnosis Primary osteoarthritis of left hip- Primary Lumbosacral spondylosis without myelopathy [facility] Diagnosis Lumbosacral spondylosis without myelopathy- Primary documented in this encounter [facility]* Diagnosis Obstructive sleep apnea syndrome- Primary Obstructive sleep apnea (adult) (pediatric) Hyperlipidemia, unspecified hyperlipidemia type ([facility]) Primary hypertension ([facility]) Unspecified essential hypertension URTI (acute upper respiratory infection) Acute upper respiratory infections of unspecified site Major depressive disorder with single episode, in full remission ([facility]) Tobacco abuse Tobacco use disorder Mixed hyperlipidemia ([facility])- Primary Mixed hyperlipidemia Major depressive disorder with single episode, in full remission ([facility]) BMI 35.0-35.9,adult Hypersomnia with sleep apnea- Primary Hypersomnia with sleep apnea, unspecified Obstructive sleep apnea syndrome Obstructive sleep apnea (adult) (pediatric) Upper respiratory tract infection, unspecified type- Primary Major depressive disorder with single episode, in full remission ([facility]) URTI (acute upper respiratory infection) Acute upper respiratory infections of unspecified site Osteopenia, unspecified location Major depressive disorder with single episode, in full remission ([facility]) documented in this encounter [facility]* Diagnosis Disorder of sacrum- Primary Disorders of sacrum Disorder of sacrum- Primary Disorders of sacrum Disorder of sacrum Disorders of sacrum [facility] Diagnosis Disorder of sacrum- Primary Disorders of sacrum Disorder of sacrum Disorders of sacrum [facility] Diagnosis Spinal stenosis of lumbar region with neurogenic claudication- Primary Spinal stenosis of lumbar region with neurogenic claudication- Primary Spinal stenosis of lumbar region with neurogenic claudication [facility] Diagnosis Disorder of sacrum- Primary Disorders of sacrum Disorder of sacrum- Primary Disorders of sacrum Disorder of sacrum Disorders of sacrum [facility] Diagnosis Primary osteoarthritis of left hip- Primary Primary osteoarthritis of left hip- Primary Primary osteoarthritis of left hip documented in this encounter [facility]* Diagnosis Obstructive sleep apnea syndrome- Primary Obstructive sleep apnea (adult) (pediatric) Hyperlipidemia, unspecified hyperlipidemia type ([facility]) Primary hypertension ([facility]) Unspecified essential hypertension URTI (acute upper respiratory infection) Acute upper respiratory infections of unspecified site Major depressive disorder with single episode, in full remission ([facility]) Tobacco abuse Tobacco use disorder Mixed hyperlipidemia ([facility])- Primary Mixed hyperlipidemia Major depressive disorder with single episode, in full remission ([facility]) BMI 35.0-35.9,adult Hypersomnia with sleep apnea- Primary Hypersomnia with sleep apnea, unspecified Obstructive sleep apnea syndrome Obstructive sleep apnea (adult) (pediatric) Upper respiratory tract infection, unspecified type- Primary Major depressive disorder with single episode, in full remission ([facility]) URTI (acute upper respiratory infection) Acute upper respiratory infections of unspecified site Primary hypertension ([facility]) Unspecified essential hypertension documented in this encounter [facility]* Diagnosis Obstructive sleep apnea syndrome- Primary Obstructive sleep apnea (adult) (pediatric) Hyperlipidemia, unspecified hyperlipidemia type ([facility]/HCC) Primary hypertension ([facility]) Unspecified essential hypertension URTI (acute upper respiratory infection) Acute upper respiratory infections of unspecified site Major depressive disorder with single episode, in full remission ([facility]) Tobacco abuse Tobacco use disorder Mixed hyperlipidemia ([facility])- Primary Mixed hyperlipidemia Major depressive disorder with single episode, in full remission ([facility]) BMI 35.0-35.9,adult Primary hypertension ([facility])- Primary Unspecified essential hypertension IRIS (obstructive sleep apnea) Obstructive sleep apnea (adult) (pediatric) Age related osteoporosis, unspecified pathological fracture presence ([facility]) Class 1 obesity due to excess calories without serious comorbidity with body mass index (BMI) of 33.0 to 33.9 in adult Mixed hyperlipidemia ([facility]) Mixed hyperlipidemia Cigarette nicotine dependence without complication Major depressive disorder with single episode, in full remission ([facility]) Primary insomnia Persistent disorder of initiating or maintaining sleep Subacute sinusitis, unspecified location Tobacco abuse Tobacco use disorder documented in this encounter [facility]* Diagnosis Disorder of sacrum- Primary Disorders of sacrum Disorder of sacrum- Primary Disorders of sacrum Disorder of sacrum Disorders of sacrum [facility] Diagnosis Lumbosacral spondylosis without myelopathy- Primary [facility]* Diagnosis Obstructive sleep apnea syndrome- Primary Obstructive sleep apnea (adult) (pediatric) Hyperlipidemia, unspecified hyperlipidemia type ([facility]) Primary hypertension ([facility]) Unspecified essential hypertension URTI (acute upper respiratory infection) Acute upper respiratory infections of unspecified site Major depressive disorder with single episode, in full remission ([facility]) Tobacco abuse Tobacco use disorder Mixed hyperlipidemia ([facility])- Primary Mixed hyperlipidemia Major depressive disorder with single episode, in full remission ([facility]) BMI 35.0-35.9,adult Primary hypertension ([facility])- Primary Unspecified essential hypertension IRIS (obstructive sleep apnea) Obstructive sleep apnea (adult) (pediatric) Age related osteoporosis, unspecified pathological fracture presence ([facility] [place]) Class 1 obesity due to excess calories without serious comorbidity with body mass index (BMI) of 33.0 to 33.9 in adult Mixed hyperlipidemia ([facility]) Mixed hyperlipidemia Cigarette nicotine dependence without complication Major depressive disorder with single episode, in full remission ([facility]) Primary insomnia Persistent disorder of initiating or maintaining sleep Subacute sinusitis, unspecified location Major depressive disorder with single episode, in full remission ([facility] [place]) documented in this encounter [facility]* Diagnosis Obstructive sleep apnea syndrome- Primary Obstructive sleep apnea (adult) (pediatric) Hyperlipidemia, unspecified hyperlipidemia type ([facility]) Primary hypertension ([facility] [place]) Unspecified essential hypertension URTI (acute upper respiratory infection) Acute upper respiratory infections of unspecified site Major depressive disorder with single episode, in full remission ([facility] [place]) Tobacco abuse Tobacco use disorder Mixed hyperlipidemia ([facility] [place])- Primary Mixed hyperlipidemia Major depressive disorder with single episode, in full remission ([facility] [place]) BMI 35.0-35.9,adult Primary hypertension ([facility] [place])- Primary Unspecified essential hypertension IRIS (obstructive sleep apnea) Obstructive sleep apnea (adult) (pediatric) Age related osteoporosis, unspecified pathological fracture presence ([facility] [place]) Class 1 obesity due to excess calories without serious comorbidity with body mass index (BMI) of 33.0 to 33.9 in adult Mixed hyperlipidemia ([facility] [place]) Mixed hyperlipidemia Cigarette nicotine dependence without complication Major depressive disorder with single episode, in full remission ([facility] [place]) Primary insomnia Persistent disorder of initiating or maintaining sleep Subacute sinusitis, unspecified location Osteopenia, unspecified location Major depressive disorder with single episode, in full remission ([facility] [place]) Tobacco abuse Tobacco use disorder Primary hypertension ([facility] [place]) Unspecified essential hypertension documented in this encounter [facility]* Diagnosis Obstructive sleep apnea syndrome- Primary Obstructive sleep apnea (adult) (pediatric) Hyperlipidemia, unspecified hyperlipidemia type Primary hypertension Unspecified essential hypertension URTI (acute upper respiratory infection) Acute upper respiratory infections of unspecified site Major depressive disorder with single episode, in full remission Tobacco abuse Tobacco use disorder Mixed hyperlipidemia- Primary Mixed hyperlipidemia Major depressive disorder with single episode, in full remission BMI 35.0-35.9,adult Primary hypertension- Primary Unspecified essential hypertension IRIS (obstructive sleep apnea) Obstructive sleep apnea (adult) (pediatric) Age related osteoporosis, unspecified pathological fracture presence Class 1 obesity due to excess calories without serious comorbidity with body mass index (BMI) of 33.0 to 33.9 in adult Mixed hyperlipidemia Mixed hyperlipidemia Cigarette nicotine dependence without complication Major depressive disorder with single episode, in full remission Primary insomnia Persistent disorder of initiating or maintaining sleep Subacute sinusitis, unspecified location IRIS (obstructive sleep apnea)- Primary Obstructive sleep apnea (adult) (pediatric) Primary hypertension Unspecified essential hypertension Class 1 obesity due to excess calories without serious comorbidity with body mass index (BMI) of 33.0 to 33.9 in adult Cigarette nicotine dependence without complication Colon cancer screening Special screening for malignant neoplasms, colon Bleeding pigmented skin lesion documented in this encounter [facility]* Diagnosis Obstructive sleep apnea syndrome- Primary Obstructive sleep apnea (adult) (pediatric) Hyperlipidemia, unspecified hyperlipidemia type Primary hypertension Unspecified essential hypertension URTI (acute upper respiratory infection) Acute upper respiratory infections of unspecified site Major depressive disorder with single episode, in full remission Tobacco abuse Tobacco use disorder Mixed hyperlipidemia- Primary Mixed hyperlipidemia Major depressive disorder with single episode, in full remission BMI 35.0-35.9,adult Primary hypertension- Primary Unspecified essential hypertension IRIS (obstructive sleep apnea) Obstructive sleep apnea (adult) (pediatric) Age related osteoporosis, unspecified pathological fracture presence Class 1 obesity due to excess calories without serious comorbidity with body mass index (BMI) of 33.0 to 33.9 in adult Mixed hyperlipidemia Mixed hyperlipidemia Cigarette nicotine dependence without complication Major depressive disorder with single episode, in full remission Primary insomnia Persistent disorder of initiating or maintaining sleep Subacute sinusitis, unspecified location IRIS (obstructive sleep apnea)- Primary Obstructive sleep apnea (adult) (pediatric) Primary hypertension Unspecified essential hypertension Class 1 obesity due to excess calories without serious comorbidity with body mass index (BMI) of 33.0 to 33.9 in adult Cigarette nicotine dependence without complication Colon cancer screening Special screening for malignant neoplasms, colon Bleeding pigmented skin lesion Seborrheic keratosis- Primary Inflamed seborrheic keratosis documented in this encounter [facility]* Diagnosis Obstructive sleep apnea syndrome- Primary Obstructive sleep apnea (adult) (pediatric) Hyperlipidemia, unspecified hyperlipidemia type Primary hypertension Unspecified essential hypertension URTI (acute upper respiratory infection) Acute upper respiratory infections of unspecified site Major depressive disorder with single episode, in full remission Tobacco abuse Tobacco use disorder Mixed hyperlipidemia- Primary Mixed hyperlipidemia Major depressive disorder with single episode, in full remission BMI 35.0-35.9,adult Primary hypertension- Primary Unspecified essential hypertension IRIS (obstructive sleep apnea) Obstructive sleep apnea (adult) (pediatric) Age related osteoporosis, unspecified pathological fracture presence Class 1 obesity due to excess calories without serious comorbidity with body mass index (BMI) of 33.0 to 33.9 in adult Mixed hyperlipidemia Mixed hyperlipidemia Cigarette nicotine dependence without complication Major depressive disorder with single episode, in full remission Primary insomnia Persistent disorder of initiating or maintaining sleep Subacute sinusitis, unspecified location IRIS (obstructive sleep apnea)- Primary Obstructive sleep apnea (adult) (pediatric) Primary hypertension Unspecified essential hypertension Class 1 obesity due to excess calories without serious comorbidity with body mass index (BMI) of 33.0 to 33.9 in adult Cigarette nicotine dependence without complication Colon cancer screening Special screening for malignant neoplasms, colon Bleeding pigmented skin lesion Well woman exam with routine gynecological exam Routine gynecological examination Encounter for screening mammogram for malignant neoplasm of breast Postmenopausal state Asymptomatic postmenopausal status (age-related) (natural) documented in this encounter [facility] HealthcareEvaluation note* Diagnosis Rectal bleeding- Primary Hemorrhage of rectum and anus documented [facility] Diagnosis Obstructive sleep apnea syndrome- Primary Obstructive sleep apnea (adult) (pediatric) Hyperlipidemia, unspecified hyperlipidemia type Primary hypertension Unspecified essential hypertension URTI (acute upper respiratory infection) Acute upper respiratory infections of unspecified site Major depressive disorder with single episode, in full remission Tobacco abuse Tobacco use disorder Mixed hyperlipidemia- Primary Mixed hyperlipidemia Major depressive disorder with single episode, in full remission BMI 35.0-35.9,adult Primary hypertension- Primary Unspecified essential hypertension IRIS (obstructive sleep apnea) Obstructive sleep apnea (adult) (pediatric) Age related osteoporosis, unspecified pathological fracture presence Class 1 obesity due to excess calories without serious comorbidity with body mass index (BMI) of 33.0 to 33.9 in adult Mixed hyperlipidemia Mixed hyperlipidemia Cigarette nicotine dependence without complication Major depressive disorder with single episode, in full remission Primary insomnia Persistent disorder of initiating or maintaining sleep Subacute sinusitis, unspecified location IRIS (obstructive sleep apnea)- Primary Obstructive sleep apnea (adult) (pediatric) Primary hypertension Unspecified essential hypertension Class 1 obesity due to excess calories without serious comorbidity with body mass index (BMI) of 33.0 to 33.9 in adult Cigarette nicotine dependence without complication Colon cancer screening Special screening for malignant neoplasms, colon Bleeding pigmented skin lesion Age related osteoporosis, unspecified pathological fracture presence- Primary documented in this encounter [facility] HealthcareEvaluation note* Diagnosis Obstructive sleep apnea syndrome- Primary Obstructive sleep apnea (adult) (pediatric) Hyperlipidemia, unspecified hyperlipidemia type Primary hypertension Unspecified essential hypertension URTI (acute upper respiratory infection) Acute upper respiratory infections of unspecified site Major depressive disorder with single episode, in full remission Tobacco abuse Tobacco use disorder Mixed hyperlipidemia- Primary Mixed hyperlipidemia Major depressive disorder with single episode, in full remission BMI 35.0-35.9,adult Primary hypertension- Primary Unspecified essential hypertension IRIS (obstructive sleep apnea) Obstructive sleep apnea (adult) (pediatric) Age related osteoporosis, unspecified pathological fracture presence Class 1 obesity due to excess calories without serious comorbidity with body mass index (BMI) of 33.0 to 33.9 in adult Mixed hyperlipidemia Mixed hyperlipidemia Cigarette nicotine dependence without complication Major depressive disorder with single episode, in full remission Primary insomnia Persistent disorder of initiating or maintaining sleep Subacute sinusitis, unspecified location IRIS (obstructive sleep apnea)- Primary Obstructive sleep apnea (adult) (pediatric) Primary hypertension Unspecified essential hypertension Class 1 obesity due to excess calories without serious comorbidity with body mass index (BMI) of 33.0 to 33.9 in adult Cigarette nicotine dependence without complication Colon cancer screening Special screening for malignant neoplasms, colon Bleeding pigmented skin lesion URI, acute- Primary Acute upper respiratory infections of unspecified site documented in this encounter [facility]* Diagnosis Obstructive sleep apnea syndrome- Primary Obstructive sleep apnea (adult) (pediatric) Hyperlipidemia, unspecified hyperlipidemia type Primary hypertension Unspecified essential hypertension URTI (acute upper respiratory infection) Acute upper respiratory infections of unspecified site Major depressive disorder with single episode, in full remission Tobacco abuse Tobacco use disorder Mixed hyperlipidemia- Primary Mixed hyperlipidemia Major depressive disorder with single episode, in full remission BMI 35.0-35.9,adult Primary hypertension- Primary Unspecified essential hypertension IRIS (obstructive sleep apnea) Obstructive sleep apnea (adult) (pediatric) Age related osteoporosis, unspecified pathological fracture presence Class 1 obesity due to excess calories without serious comorbidity with body mass index (BMI) of 33.0 to 33.9 in adult Mixed hyperlipidemia Mixed hyperlipidemia Cigarette nicotine dependence without complication Major depressive disorder with single episode, in full remission Primary insomnia Persistent disorder of initiating or maintaining sleep Subacute sinusitis, unspecified location IRIS (obstructive sleep apnea)- Primary Obstructive sleep apnea (adult) (pediatric) Primary hypertension Unspecified essential hypertension Class 1 obesity due to excess calories without serious comorbidity with body mass index (BMI) of 33.0 to 33.9 in adult Cigarette nicotine dependence without complication Colon cancer screening Special screening for malignant neoplasms, colon Bleeding pigmented skin lesion Dizziness and giddiness- Primary Seasonal allergies Allergic rhinitis, cause unspecified Primary hypertension Unspecified essential hypertension Class 1 obesity due to excess calories without serious comorbidity with body mass index (BMI) of 33.0 to 33.9 in adult documented in this encounter [facility]* Diagnosis Onset Date Resolution Status Admit Date Class 1 obesity due to excess calories i n adult acuteSept2024 8:44amDizziness and giddinessacuteSept2024 8:44amEssential (primary) hypertensionacuteSept2024 8:44amMajor depressive disorder, single episode in full remissionacuteSept2024 8:44amNicotine dependenceacuteSept2024 8:44amOSA (obstructive sleep apnea)acuteSept2024 8:44am [facility] Work Phone: Hospital Discharge instructionsAmbulatory Orders* Referral to Weight Management Time Frame: 02/25/25, Location: None [facility] Work Phone: InstructionsNot on filedocumented in this encounter [facility] [...] for referral (narrative)* Consultation (Routine) - Pending ReviewSpecialtyDiagnoses / ProceduresReferred By ContactReferred To [facility] Diagnoses Obstructive sleep apnea syndrome Procedures CO OFFICE/OUTPATIENT NEW HIGH MDM 60 MINUTES Shaikh Hahn MD [address] [facility] [place] [address] Osiris Bowden MD [address] [place] [address] Referral IDStatusReasonStart DateExpiration DateVisits RequestedVisits [id number] Review Specialty Services Required / [facility] for referral (narrative)* Consultation (Routine) - Pending ReviewSpecialtyDiagnoses / ProceduresReferred By ContactReferred To Contact Pulmonary Disease Diagnoses Obstructive sleep apnea syndrome Procedures CO OFFICE/OUTPATIENT NEW [facility] 60 MINUTES Sindhu Tong NP [address] [place] [address] Rober Aguilar MD [address] [place] [address] Referral IDStatusReleloStval DateExpiration DateVisits RequestedVisits [id number] Review Specialty Services Required [facility] for referral (narrative)* Consultation (Routine) - AuthorizedSpecialtyDiagnoses / ProceduresReferred By ContactReferred To ContactPulmonary Disease Diagnoses Hypersomnia with sleep apnea Obstructive sleep apnea syndrome Procedures CO OFFICE/OUTPATIENT NEW [facility] 60 MINUTES Sindhu Tong NP [address] [place] [address] Vladislav Cyr MD [address] [place] [phone] Referral IDStatusReasonStart DateExpiration DateVisits RequestedVisits [id number] Specialty Services Required / [facility] for referral (narrative)No reason for referral information availableKettering Health Work Phone: Summary Purpose Family History Relationship Condition Age at Onset Recorded Date/T aissatou father Disorder of liver Unknown Diabetes mellitusUnknownmotherMalignant neoplasm of urinary bladderUnknownfather DeceasedUnknownmotherMalignant neoplasmUnknownDeceasedUnknown Advance Directives Advance Directive Response Recorded Date/ Time Advance Directives No February 04, 2025 5:10pm Advance Directive Response Recorded Date/ Time Advance Directives No February 04, 2025 4:10pm Reason for Referral SpecialtyDiagnoses / ProceduresReferred By ContactReferred To Contact Diagnoses Disorder of sacrum Procedures Case request operating room: INJECTION BLOCK SACROILIAC JOINT Yadiel Garcia PA [address], [address] [place] [address] Referral IDStatusReasonStart DateExpiration DateVisits RequestedVisits [id number] IDStatusReasonStart DateExpiration DateVisits RequestedVisits [id number] Review /[id number] / ProceduresReferred By ContactReferred To Contact Diagnoses Spinal stenosis of lumbar region with neurogenic claudication Procedures Case request operating room: INJECTION BLOCK EPIDURAL CAUDAL STEROID Yadiel Garcia, NILDA [address], [address] [place] [address] Referral IDStatusReasonStart DateExpiration DateVisits RequestedVisits [id number] Review/ Chief Complaint and Reason for Visit Chief Complaint Admit Date 3M February 25, 2025 8:44am Reason for Visit Admit Date Class 1 obesity due to excess calories i n adult February 25, 2025 8:44am Dizziness and giddiness February 25, 2025 8:44am Essential (primary) hypertension Sept2024 8:44am Major depressive disorder, s gabriela episode in full remission February 25, 2025 8:44am Nicotine dependence February 25, 2025 8:44am IRIS (obstructive sleep apnea) February 25, 2025 8:44am Chief Complaint Admit Date 3M February 25, 2025 8:44am sore throat, congestion April 21, 025 11:36am Reason for Visit Admit Date Class 1 obesity due to excess calories i n adult February 25, 2025 8:44am Dizziness and giddiness February 25, 2025 8:44am Essential (primary) hypertension Septemb 2024 8:44am Major depressive disorder, s gabriela episode in full remission February 25, 2025 8:44am Nicotine dependence February 25, 2025 8:44am IRIS (obstructive sleep apnea) February 25, 2025 8:44am Class 1 obesity due to excess calories i n adult April 21, 2025 11:36am Emphysema, unspecified April 21 11:36am Essential (primary) hypertension Novembe r 2024 11:36am Nicotine dependence April 21, 2025 11:36am Sinusitis, acute April 21, 2025 11:36am Additional Source Comments INFORMATION SOURCE (unrecogn ized section and content) DATE CREATED AUTHOR 08/19/2019 [facility] DATE CREATED AUTHOR AUTHOR'S ORGANIZ ATION 06/03/2022 [facility] DATE CREATED AUTHOR AUTHOR'S ORGANIZ ATION 12/07/2024 [facility] DATE CREATED AUTHOR AUTHOR'S ORGANIZ ATION 01/18/2025 [facility] DATE CREATED AUTHOR AUTHOR'S ORGANIZ ATION 01/21/2025 [facility] EPIC Care Teams (unrecognized sec tion and content) Team MemberRelationshipSpecialtyStart DateEnd Date Shaikh Hahn MD PCP - GeneralInternal Medicine11/28/22Team MemberRelationshipSpecialtyStart Date End Date Shaikh Hahn MD PCP - GeneralInternal Medicine11/28/22Team MemberRelationshipSpecialtyStart Date End Date Bahman Mcginnis MD [address] [place] [address] PCP - [facility]01/24/24 Sindhu Tong NP [address] [place] [address] [facility]01/24/24Team MemberRelationshipSpecialtyStart DateEnd Date Bahman Mcginnis MD [address] [place] [address] PCP - [facility]01/24/24 Sindhu Tong NP [address] [place] [address] Nurse Pract[facility]erAd[facility]01/24/24Team MemberRelationshipSpecialtyStart DateEnd Date Bahman Mcginnis MD [address] [place] [address] PCP - [facility]01/24/24 Sindhu Tong NP [address] [place] [address] Nurse Pract[facility]erAd[facility]01/24/24Team MemberRelationshipSpecialtyStart DateEnd Date Bahman Mcginnis MD [address] [place] [address] PCP - [facility]01/24/24 Sindhu Tong NP [address] [place] [address] Nurse Pract[facility]erAd[facility]01/24/24Team MemberRelationshipSpecialtyStart DateEnd Date Bahman Mcginnis MD [address] [place] [address] PCP - GeneralAd[facility]01/24/24 Sindhu Tong NP [address] [place] [address] Nurse Pract[facility]erAd[facility]01/24/24Team MemberRelationshipSpecialtyStart DateEnd Date Bahman Mcginnis MD [address] [place] [address] PCP - GeneralAd[facility]01/24/24 Sindhu Tong, MARY [address] [place] [address] Nurse PractitionerAd[facility]01/24/24Team MemberRelationshipSpecialtyStart DateEnd Date Bahman Mcginnis MD [address] [place] [address] PCP - GeneralAd[facility]01/24/24 Sindhu Tong NP [address] [place] [address] Nurse PractitionerAd[facility]01/24/24Team MemberRelationshipSpecialtyStart DateEnd Date Bahman Mcginnis MD [address] [place] [address] PCP - [facility]01/24/24 Sindhu Tong NP [address] [place] [address] Nurse Pract[facility]erAd[facility]01/24/24Team MemberRelationshipSpecialtyStart DateEnd Date Bahman Mcginnis MD [address] [place] [address] PCP - [facility]01/24/24 Sindhu Tong NP [address] [place] [address] Nurse Pract[facility]Ad[facility]01/24/24Team MemberRelationshipSpecialtyStart DateEnd Date Bahman Mcginnis MD [address] [place] [address] PCP - [facility]01/24/24 Sindhu Tong NP [address] [place] [address] Nurse [facility]01/24/24Team MemberRelationshipSpecialtyStart DateEnd Date Bahman Mcginnis MD [address] [place] [address] PCP - [facility]01/24/24 Sindhu Tong NP [address] [place] [address] Nurse Pract[facility]01/24/24Team MemberRelationshipSpecialtyStart DateEnd Date Bahman Mcginnis MD [address] [place] [address] PCP - GeneralAd[facility]01/24/24 Sindhu Tong NP [address] [place] [address] Nurse Pract[facility]erAd[facility]01/24/24Team MemberRelationshipSpecialtyStart DateEnd Date Bahman Mcginnis MD [address] [place] [address] PCP - GeneralAd[facility]01/24/24 Sindhu Tong, MARY [address] [place] [address] Nurse Pract[facility]erAd[facility]01/24/24Team MemberRelationshipSpecialtyStart DateEnd Date Bahman Mcginnis MD [address] [place] [address] PCP - [facility]Ad[facility]01/24/24 Sindhu Tong NP [address] [place] [address] Nurse Pract[facility]erAd[facility]01/24/24Team MemberRelationshipSpecialtyStart DateEnd Date Bahman Mcginnis MD [address] [place] [address] PCP - Generalmily Medicine01/24/24 Sindhu Tong NP [address] [place] [address] Nurse Pract[facility]erAd[facility]01/24/24Team MemberRelationshipSpecialtyStart DateEnd Date Shaikh Hahn MD [facility]/16/21Team MemberRelationshipSpecialtyStart Date End Date Shaikh Hahn MD [address] [place] [address] [facility] - [facility]11/16/21Team MemberRelationshipSpecialtyStart Date End Date Bahman Mcginnis MD [address] [place] [address] PCP - [facility]01/24/24 Sindhu Tong NP [address] [place] [address] Nurse Pract[facility]Ad[facility]01/24/24Team MemberRelationshipSpecialtyStart DateEnd Date Shaikh Hahn MD PCP - GeneralInternal Medicine11/16/21Team MemberRelationshipSpecialtyStart Date End Date Shaikh Hahn MD [address] [place] [address] PCP - GeneralInternal Medicine11/16/21Team MemberRelationshipSpecialtyStart Date End Date Shaikh Hahn MD PCP - GeneralInternal Medicine11/16/21Team MemberRelationshipSpecialtyStart Date End Date Shaikh Hahn MD [facility]11/16/21Team MemberRelationshipSpecialtyStart Date End Date Shaikh Hahn MD PCP - [facility]11/16/21Te MemberRelationshipSpecialtyStart Date End Date Bahman Mcginnis MD [address] [place] [address] PCP - [facility]01/24/24 Sindhu Tong NP [address] [place] [address] Nurse PractitionerMontgomery County Memorial Hospitally Medicine01/24/24Te MemberRelationshipSpecialtyStart DateEnd Date Shaikh Hahn MD PCP - [facility]11/16/21Te MemberRelationshipSpecialtyStart Date End Date Bahman Mcginnis MD [address] [place] [address] [facility]/24 Sindhu Tong NP [address] [place] [address] Nurse Pract[facility]erAd[facility]01/24/24Team MemberRelationshipSpecialtyStart DateEnd Date Shaikh Hahn MD PCP - [facility]11/16/21Team MemberRelationshipSpecialtyStart Date End Date Bahman Mcginnis MD [address] [place] [address] PCP - [facility]01/24/24 Sindhu Tong NP [address] [place] [address] Nurse Pract[facility]Ad[facility]01/24/24Team MemberRelationshipSpecialtyStart DateEnd Date Bahman Mcginnis MD [address] [place] [address] PCP - [facility]01/24/24 Sindhu Tong NP [address] [place] [address] Nurse Pract[facility]Ad[facility]01/24/24Team MemberRelationshipSpecialtyStart DateEnd Date Bahman Mcginnis MD [address] [place] [address] PCP - [facility]01/24/24 Sindhu Tong NP [address] [place] [address] [facility]01/24/24Team MemberRelationshipSpecialtyStart DateEnd Date Bahman Mcginnis MD [address] [place] [address] PCP - [facility]Ad[facility]01/24/24 Sindhu Tong NP [address] [place] [address] Nurse Pract[facility]Ad[facility]01/24/24Team MemberRelationshipSpecialtyStart DateEnd Date Bahman Mcginnis MD [address] [place] [address] PCP - [facility]Ad[facility]01/24/24 Sindhu Tong NP [address] [place] [address] Nurse Pract[facility]01/24/24Team MemberRelationshipSpecialtyStart DateEnd Date Bahman Mcginnis MD [address] [place] [address] PCP - [facility]Ad[facility]01/24/24 Sindhu Tong, MARY [address] [place] [address] Nurse PractitionerAd[facility]01/24/24Team MemberRelationshipSpecialtyStart DateEnd Date Bahman Mcginnis MD [address] [place] [address] PCP - [facility]01/24/24 Sindhu Tong NP [address] [place] [address] Nurse Practitionermily Medicine01/24/24Team MemberRelationshipSpecialtyStart DateEnd Date Bahman Mcginnis MD [address] [place] [address] PCP - GeneralFamily Medicine01/24/24 Sindhu Tong, MARY [address] [place] [address] [facility] Medicine01/24/24Team MemberRelationshipSpecialtyStart DateEnd Date Estefany Garcia, PREDATORY H[employer]ENCE [employer]STRUCTION LIBRARIAN PCP - GeneralNurse Practitioner11/25/24Team MemberRelationshipSpecialtyStart Date End Date Estefany Garcia, PR[employer]ORY H[employer]STRUCTION LIBRARIAN PCP - GeneralNurse Practitioner11/25/24Team MemberRelationshipSpecialtyStart Date End Date Estefany Garcia, PRED[employer]ORY H[employer]STRUCTION LIBRARIAN PCP - GeneralNurse Practitioner11/25/24Team MemberRelationshipSpecialtyStart Date End Date Bahman Mcginnis MD [address] [place] [address] PCP - GeneralFamily Medicine01/24/24 Sindhu Tong, MARY [address] [place] [address] [facility]01/24/24Team MemberRelationshipSpecialtyStart DateEnd Date Bahman Mcginnis MD [address] [place] [address] PCP - [facility]01/24/24 Sindhu Tong NP [address] [place] [address] Nurse Pract[facility]01/24/24Team MemberRelationshipSpecialtyStart DateEnd Date Bahman Mcginnis MD [address] [place] [address] PCP - [facility]01/24/24 Sindhu Tong NP [address] [place] [address] Nurse [facility]01/24/24Team MemberRelationshipSpecialtyStart DateEnd Date Bahman Mcginnis MD [address] [place] [address] PCP - [facility]01/24/24 Sindhu Tong NP [address] [place] [address] Nurse [facility]01/24/24Team MemberRelationshipSpecialtyStart DateEnd Date Bahman Mcginnis MD [address] [place] [address] PCP - [facility]01/24/24 Sindhu Tong NP [address] [place] [address] [facility] Medicine01/24/24Team MemberRelationshipSpecialtyStart DateEnd Date Estefany Garcia PREDATORY HUNTER-REFERENCE AND INSTRUCTION LIBRARIAN PCP - [facility]11/25/24 Team Status: Active Member Role Status Dates Estefany Garcia DELIVERY ASSOCIATE-C Primary Care Provider Active Team Status: Inactive Member Role Status Dates Estefany Garcia NP-C Primary Care Provider Active Start: February 25, 2025 End: February 25, 2025CHESTER GrovesCAtиван ProviderActiveStart: February 25, 2025 End: February 25, 2025Team MemberRelationshipSpecialtyStart DateEnd Date Bahman Mcginnis MD PCP - [facility]01/24/24 [facility]indhu Tong [facility] Team Status: Active Member Role/Relationship Status Dates Estefany Garcia NP-C Primary Care Provider Active Team Status: Inactive Member Role/Relationship Status Dates Estefany Garcia NP-C Primary Care Provider Active Start: February 25, 2025 End: February 25, 2025CHESTER GrovesCAttenfernando ProviderActiveStart: February 25, 2025 End: February 25, 2025 Team Status: Inactive Member Role/Relationship Status Dates Estefany Garcia NP-C Primary Care Provider Active Start: April 21, 2025 End: April 21, 2025CHESTER GrovesCAtиван ProviderActiveStart: April 21, 2025 End: April 21, 2025 Reason for Visit (unrecogniz ed section and content) ReasonCommentsFollow-upReasonCommentsMed RefillReasonOnset DateCommentsMed [id number] CongestionHeadache , cough and ears hurting ReasonOnset DateCommentsMed [id number] DateCommentsMed Refill 4ReasonCommentsBack PainHip PainReasonCommentsBack PainReasonOnset Date CommentsMed Dxrjhf4107/25/2024ReasonCommentsBack PainReasonOnset DateCommentsMed [id number] DateCommentsMed Cafpmk9108/01/2024ReasonOnset Date CommentsMed Guuzay9008/22/2024ReasonCommentsHip PainBack PainReasonComments HypertensionReasonCommentsSuspicious Skin LesionSpecialtyDiagnoses / Procedures Referred By ContactReferred To ContactDermatology Diagnoses Bleeding pigmented skin lesion Procedures CO OFFICE/OUTPATIENT NEW HIGH MDM 60 MINUTES Estefany Garcia NP [address] [place] [address] Phone: tel: fax: Mer Irby, PREDATORY H[employer]ENCE AND INSTRUCTION LIBRARIAN [address] [address] Phone: tel: fax: Referral IDStatusReasonStart DateExpiration DateVisits RequestedVisits [id number] Specialty Services Required [id number] Women VisitReasonCommentsColon Cancer ScreeningSCREENING COLONOSCOPY, REFERRED BY ANA BAUGHpecialtyDiagnoses / ProceduresReferred By ContactReferred To ContactGeneral Surgery Diagnoses Colon cancer screening Procedures CO OFFICE OUTPATIENT VISIT 60-74 MINS HIGH MDM [id number] (SNOMED CT) - AMB REFERRAL TO GENERAL SURGERY Estefany Garcia, PREDATORY HUNTER[employer]REF[employer]ENCE AND INSTRUCTION LIBRARIAN Phone: tel: fax: Ricardo Kemp, [address] [place] [id number] Phone: tel: fax: Referral IDStatusReasonStart DateExpiration DateVisits RequestedVisits [id number]grpafRuwag DateCommentsMed Hfidrb5502/05/2025 Goals (unrecognized section and content) Goals may be documented in a n alternate section FOR RECORDS PERTAINING TO PATIENTS WHO ARE [...] BE BASED ON THE PRIMARY CLINICAL RECORDS. [employer] [facility]. provides no warranty or guarantee of the accuracy or completeness of information in this document.
== END 2025-05-22 09:53 | disposition home or self-care (01) ==
LOC: CT 09:52
PROVIDERS: PCP Nurse Practitioner; Visit Provider Internal Medicine
DX: R91.1 Solitary pulmonary nodule (principal); F17.210 Nicotine dependence, cigarettes, uncomplicated; Z12.2 Encounter for screening for malignant neoplasm of respiratory organs
CPT/HCPCS: 71271